=== PATIENT | male | born 1965 | race Caucasian/White ===

== ENCOUNTER 2023-05-27 07:54 | Emergency (ER) | payer OTHER ==
--- NOTE | 2023-05-27 08:33 | ED ---
General Adult HPI - General Chief complaint: Chest Pain Stated complaint: SOB Time Seen by Provider: 05/27/23 08:00 Source: patient, EMS, RN notes reviewed, old records reviewed Mode of arrival: EMS Limitations: no limitations - History of Present Illness Initial comments: This is a 58-year-old male who presents to the emergency department from [facility]. Patient was there for alcohol but has been there for quite a while he has not had any alcohol or cigarettes. Patient comes in today because has been coughing for the last 3 days and has a sore throat a lot of congestion and he states he also has a bit of wheeze. Patient patient states he does have chest pain but he thinks it is his lungs because it only hurts when he takes deep breath or coughs. Patient [place] any palpitation. Patient states he does feel warm and has had the chills. Patient denies abdominal pain patient is nausea vomiting diarrhea - Related Data Home Medications Medication Instructions Recorded Confirmed Acetaminophen Tab [Tylenol] 650 mg PO Q4H PRN 05/27/23 05/27/23 Albuterol Nebulized [Ventolin 2.5 mg INHALATION RT-Q4H PRN 05/27/23 05/27/23 Nebulized] Azithromycin [Zithromax Z Pack] See Taper PO DIRECTED 05/27/23 05/27/23 Brinzolamide/Brimonidine Tart 1 drop BOTH EYES BID 05/27/23 05/27/23 [Simbrinza 1%-0.2% Eye Drop] Calcium/Magnesium/Zinc/Vitamin D 1 tab PO DAILY PRN 05/27/23 05/27/23 Chlorpheniramine Maleate 4 mg PO Q4H PRN 05/27/23 05/27/23 [Chlor-Trimeton] Hyoscyamine Sulfate [Levsin] 0.125 mg PO QID PRN 05/27/23 05/27/23 Ibuprofen [Motrin Ib] 600 mg PO Q6H PRN 05/27/23 05/27/23 Latanoprost [Latanoprost 0.005%] 1 drop BOTH EYES HS 05/27/23 05/27/23 Loperamide HCl [Imodium A-D] 4 mg PO BID PRN 05/27/23 05/27/23 Mag Hydrox/Aluminum Hyd/Simeth 30 ml PO Q4H PRN 05/27/23 05/27/23 [Mylanta Maximum Strength Liq] Melatonin 5 mg PO HS 05/27/23 05/27/23 Metoprolol Tartrate [Lopressor] 25 mg PO BID 05/27/23 05/27/23 Mirtazapine [Remeron] 15 mg PO HS 05/27/23 05/27/23 Multivitamins, Thera [Multivitamin 1 tab PO DAILY 05/27/23 05/27/23 (formulary)] Thiamine [Vitamin B-1] 100 mg PO DAILY 05/27/23 05/27/23 cloNIDine HCL [Catapres] 0.1 - 0.3 mg PO Q4H PRN 05/27/23 05/27/23 ondansetron HCL [Ondansetron HCl] 8 mg PO Q6H PRN 05/27/23 05/27/23 Previous Rx's Medication Instructions Recorded Albuterol Inhaler [Ventolin Hfa 1 - 2 puff INHALATION Q6HR PRN #2 05/27/23 Inhaler] each Allergies Allergy/AdvReac Type Severity Reaction Status Date / Time No Known Allergies Allergy Verified 05/27/23 08:07 Review of Systems ROS Statement: Those systems with pertinent positive or pertinent negative responses have been documented in the HPI. ROS Other: All systems not noted in ROS Statement are negative. Past Medical History Past Medical History: Chest Pain / Angina, Hypertension, Myocardial Infarction ([place]) Additional Past Medical History / Comment(s): PT states he ahs 7 cardiac stents. Pt states he lost his card. Past Surgical History: Heart Catheterization With Stent Smoking Status: Former smoker Past Alcohol Use History: Abuse Past Drug Use History: Marijuana General Exam - General Exam Comments Initial Comments: GENERAL: Patient is well-developed and well-nourished. Patient is nontoxic and well- hydrated and is in mild distress. ENT: Neck is soft and supple. No significant lymphadenopathy is noted. Oropharynx is clear. Moist mucous membranes. Neck has full range of motion without eliciting any pain. EYES: The sclera were anicteric and conjunctiva were pink and moist. Extraocular movements were intact and pupils were equal round and reactive to light. Eyelids were unremarkable. PULMONARY: Patient has diffuse expiratory wheezing CARDIOVASCULAR: There is a regular rate and rhythm without any murmurs gallops or rubs. ABDOMEN: Soft and nontender with normal bowel sounds. SKIN: Skin is clear with no lesions or rashes and otherwise unremarkable. NEUROLOGIC: Patient is alert and oriented x3. Cranial nerves II through XII are grossly intact. Motor and sensory are also intact. Normal speech, volume and content. Symmetrical smile. MUSCULOSKELETAL: Normal extremities with adequate strength and full range of motion. LYMPHATICS: No significant lymphadenopathy is noted PSYCHIATRIC: Normal psychiatric evaluation. Limitations: no limitations Course Vital Signs 05/27/23 05/27/23 05/27/23 07:56 08:09 08:19 Temperature 99.8 F H 100.5 F H Pulse Rate 104 H Respiratory 20 18 Rate Blood Pressure 157/88 O2 Sat by Pulse 93 L Oximetry 05/27/23 05/27/23 09:07 10:04 Temperature 98.8 F 98.7 F Pulse Rate 92 94 Respiratory 18 16 Rate Blood Pressure 112/79 124/71 O2 Sat by Pulse 92 L 93 L Oximetry Medical Decision Making - Medical Decision Making EKG is interpreted by myself EKG shows a sinus rhythm at 90 bpm AL is 134 QRS is 105 QT interval 342 QTc is 390. Patient EKG shows no ST segment ovation or depression Was pt. sent in by a medical professional or institution (, PA, PIE CRUST MIXER, urgent care, hospital, or residential...) When possible be specific @ -[facility] [place] Did you speak to anyone other than the patient for history (EMS, parent, family, police, friend...)? What history was obtained from this source @ -No Did you review nursing and triage notes (agree or disagree)? Why? @ -I reviewed and agree with nursing and triage notes Were old charts reviewed (outside hosp., previous admission, EMS record, old EKG, old radiological studies, urgent care reports/EKG's, residential records)? Report findings @ -No old charts were reviewed Differential Diagnosis (chest pain, altered mental status, abdominal pain women, abdominal pain men, vaginal bleeding, weakness, fever, dyspnea, syncope, headache, dizziness, GI bleed, back pain, seizure, CVA, palpatations, mental health, musculoskeletal)? @ -Differential Fever: Pneumonia, viral URI, endocarditis, myocarditis, pericarditis, otitis, sinusitis, peritonsillar Abscess, retropharyngeal Abscess, epiglottitis, peritonitis, appendicitis, Shelli cystitis, diverticulitis, hepatitis, colitis, UTI, PID, TOA, pyelonephritis, prostatitis, epididymitis, meningitis, encephalitis, pulmonary embolism, CVA, thyroid storm, pancreatitis, adrenal crisis, cavernous sinus thrombosis, this is not meant to be an all-inclusive list. EKG interpreted by me (3pts min.). @ -As above X-rays interpreted by me (1pt min.). @ -Chest x-ray showed no acute abnormality CT interpreted by me (1pt min.). @ -None done U/S interpreted by me (1pt. min.). @ -None done What testing was considered but not performed or refused? (CT, X-rays, U/S, labs)? Why? @ -None What meds were considered but not given or refused? Why? @ -None Did you discuss the management of the patient with other professionals (professionals i.e. , PA, PIE CRUST MIXER, lab, RT, psych nurse, public health social worker, diesel technician mechanic, teacher, security officer, welfare case worker)? Give summary @ -No Was smoking cessation discussed for >3mins.? @ -No Was critical care preformed (if so, how long)? @ -No Were there social determinants of health that impacted care today? How? (Homelessness, low income, unemployed, alcoholism, drug addiction, tr ansportation, low edu. Level, literacy, decrease access to med. care, half-way, rehab)? @ -No Was there de-escalation of care discussed even if they declined (Discuss DNR or withdrawal of care, Hospice)? DNR status @ -No What co-morbidities impacted this encounter? (DM, HTN, Smoking, COPD, CAD, Cancer, CVA, ARF, Chemo, Hep., AIDS, mental health diagnosis, sleep apnea, morbid obesity)? @ -None Was patient admitted / discharged? Hospital course, mention meds given and route, prescriptions, significant lab abnormalities, going to OR and other pertinent info. @ -Patient received Motrin Tylenol for the fever. Patient was influenza A positive. Patient did get a breathing treatment on the way and stated did help him. I will give the patient inhaler. Undiagnosed new problem with uncertain prognosis? @ -No Drug Therapy requiring intensive monitoring for toxicity (Heparin, Nitro, Insulin, Cardizem)? @ -No Were any procedures done? @ -No Diagnosis/symptom? @ -Influenza A Acute, or Chronic, or Acute on Chronic? @ -Acute Uncomplicated (without systemic symptoms) or Complicated (systemic symptoms)? @ -Complicated Side effects of treatment? @ -No Exacerbation, Progression, or Severe Exacerbation? @ -No Poses a threat to life or bodily function? How? (Chest pain, [place], [place], pneumonia, PE, COPD, DKA, ARF, appy, cholecystitis, CVA, Diverticulitis, Homicidal, Suicidal, threat to staff... and all critical care pts) @ -No - Lab Data Result diagrams: 05/27/23 08:21 05/27/23 08:21 Lab Results 05/27/23 05/27/23 05/27/23 Range/Units 08:21 08:21 08:21 WBC 8.8 (3.8-10.6) k/uL RBC 4.31 (4.30-5.90) m/uL Hgb 14.0 (13.0-17.5) gm/dL Hct 40.2 (39.0-53.0) % MCV 93.4 (80.0-100.0) fL MCH 32.4 (25.0-35.0) pg MCHC 34.7 (31.0-37.0) g/dL RDW 13.5 (11.5-15.5) % Plt Count 169 (150-450) k/uL MPV 8.6 Neutrophils % 82 % Lymphocytes % 9 % Monocytes % 6 % Eosinophils % 0 % Basophils % 0 % Neutrophils # 7.2 (1.3-7.7) k/uL Lymphocytes # 0.8 L (1.0-4.8) k/uL Monocytes # 0.5 (0-1.0) k/uL Eosinophils # 0.0 (0-0.7) k/uL Basophils # 0.0 (0-0.2) k/uL PT 10.4 (10.0-12.5) sec INR 0.9 (<1.2) APTT 25.9 (22.0-30.0) sec Sodium 135 L (137-145) mmol/L Potassium 4.2 (3.5-5.1) mmol/L Chloride 104 (98-107) mmol/L Carbon Dioxide 23 (22-30) mmol/L Anion Gap 8 mmol/L BUN 15 (9-20) mg/dL Creatinine 0.54 L (0.66-1.25) mg/dL Est GFR (CKD-EPI)AfAm >90 (>60 ml/min/1.73 sqM) Est GFR (CKD-EPI)NonAf >90 (>60 ml/min/1.73 sqM) Glucose 107 H (74-99) mg/dL Calcium 8.4 (8.4-10.2) mg/dL Magnesium 1.7 (1.6-2.3) mg/dL Total Bilirubin 0.4 (0.2-1.3) mg/dL AST 33 (17-59) U/L ALT 28 (4-49) U/L Alkaline Phosphatase 77 (38-126) U/L Troponin I (0.000-0.034) ng/mL Total Protein 5.9 L (6.3-8.2) g/dL Albumin 3.7 (3.5-5.0) g/dL Influenza Type A (PCR) (Not Detectd) Influenza Type B (PCR) (Not Detectd) RSV (PCR) (Not Detectd) SARS-CoV-2 (PCR) (Not Detectd) 05/27/23 05/27/23 Range/Units 08:21 08:21 WBC (3.8-10.6) k/uL RBC (4.30-5.90) m/uL Hgb (13.0-17.5) gm/dL Hct (39.0-53.0) % MCV (80.0-100.0) fL MCH (25.0-35.0) pg MCHC (31.0-37.0) g/dL RDW (11.5-15.5) % Plt Count (150-450) k/uL MPV Neutrophils % % Lymphocytes % % Monocytes % % Eosinophils % % Basophils % % Neutrophils # (1.3-7.7) k/uL Lymphocytes # (1.0-4.8) k/uL Monocytes # (0-1.0) k/uL Eosinophils # (0-0.7) k/uL Basophils # (0-0.2) k/uL PT (10.0-12.5) sec INR (<1.2) APTT (22.0-30.0) sec Sodium (137-145) mmol/L Potassium (3.5-5.1) mmol/L Chloride (98-107) mmol/L Carbon Dioxide (22-30) mmol/L Anion Gap mmol/L BUN (9-20) mg/dL Creatinine (0.66-1.25) mg/dL Est GFR (CKD-EPI)AfAm (>60 ml/min/1.73 sqM) Est GFR (CKD-EPI)NonAf (>60 ml/min/1.73 sqM) Glucose (74-99) mg/dL Calcium (8.4-10.2) mg/dL Magnesium (1.6-2.3) mg/dL Total Bilirubin (0.2-1.3) mg/dL AST (17-59) U/L ALT (4-49) U/L Alkaline Phosphatase (38-126) U/L Troponin I <0.012 (0.000-0.034) ng/mL Total Protein (6.3-8.2) g/dL Albumin (3.5-5.0) g/dL Influenza Type A (PCR) Detected A (Not Detectd) Influenza Type B (PCR) Not Detected (Not Detectd) RSV (PCR) Not Detected (Not Detectd) SARS-CoV-2 (PCR) Not Detected (Not Detectd) Disposition Clinical Impression: Influenza A Disposition: HOME SELF-CARE Condition: Good Instructions (If sedation given, give patient instructions): Influenza (ED) Prescriptions: Albuterol Inhaler [Ventolin Hfa Inhaler] 1 - 2 puff INHALATION Q6HR PRN #2 each PRN Reason: Difficulty breathing Is patient prescribed a controlled substance at d/c from ED?: No Referrals: [facility] [Primary Care Provider] - 1-2 days Time of Disposition: 10:00
[2023-05-27 08:40] LABS: Basophils % (A) 0 %; Eosinophils % (A) 0 %; HCT 40.2 % (39.0-53.0); Lymphocytes # (A) 0.8 k/uL (1.0-4.8); Lymphocytes % (A) 9 %; MCH 32.4 pg (25.0-35.0); MCHC 34.7 g/dL (31.0-37.0); MCV 93.4 fL (80.0-100.0); Mean Platelet Volume 8.6; Monocytes # (A) 0.5 k/uL (0-1.0); Monocytes % (A) 6 %; Neutrophils # (A) 7.2 k/uL (1.3-7.7); Neutrophils % (A) 82 %; Platelet Count 169 k/uL (150-450); RBC 4.31 m/uL (4.30-5.90); RDW 13.5 % (11.5-15.5); WBC 8.8 k/uL (3.8-10.6)
[2023-05-27] MEDS: ACETAMINOPHEN TAB 500 MG TAB PO STA (08:40)
[2023-05-27] MEDS: IBUPROFEN 600 MG TAB PO STA (08:42)
[2023-05-27] MEDS: SODIUM CHLORIDE 0.9% 500 ML 500 ML IV STA (08:45)
[2023-05-27 08:54] LABS: INR 0.9 (<1.2); Partial Thromboplastin Time 25.9 sec (22.0-30.0); Prothrombin Time 10.4 sec (10.0-12.5)
[2023-05-27 09:04] LABS: ALT 28 U/L (4-49); AST 33 U/L (17-59); African American GFR (CKD) >90 (>60 ml/min/1.73 sqM); Albumin 3.7 g/dL (3.5-5.0); Alkaline Phosphatase 77 U/L (38-126); Anion Gap 8 mmol/L; Blood Urea Nitrogen 15 mg/dL (9-20); Calcium 8.4 mg/dL (8.4-10.2); Carbon Dioxide 23 mmol/L (22-30); Chloride 104 mmol/L (98-107); Glucose 107 mg/dL (74-99); Magnesium 1.7 mg/dL (1.6-2.3); Non-African American GFR(CKD) >90 (>60 ml/min/1.73 sqM); Potassium 4.2 mmol/L (3.5-5.1); Sodium 135 mmol/L (137-145); Total Bilirubin 0.4 mg/dL (0.2-1.3); Total Protein 5.9 g/dL (6.3-8.2)
--- NOTE | 2023-05-27 09:55 | XR ---
EXAMINATION TYPE: XR chest 2V DATE OF EXAM: 05/27/2023 COMPARISON: None INDICATION: Chest pain TECHNIQUE: Frontal and lateral views of the chest are obtained. FINDINGS: The heart size is normal. Cardiac stent is evident. The pulmonary vasculature is normal. The lungs are clear. IMPRESSION: 1. No acute pulmonary process. Follow-up can be performed as clinically indicated
[2023-05-27 10:37] VITALS: BP 124/71; PULSE 94; RESP 16; TEMP 98.7
== END 2023-05-27 10:16 | disposition home or self-care (01) ==
LOC: EC 07:54
DX: J10.1 Influenza due to other identified influenza virus with other respiratory manifestations (principal); I10 Essential (primary) hypertension; I25.2 Old myocardial infarction; Z87.891 Personal history of nicotine dependence; Z20.822 Contact with and (suspected) exposure to COVID-19
CPT/HCPCS: 36415; 71046; 80053; 83735; 84484; 85025; 85610; 85730; 87636; 93005; 96360; 99285

== ENCOUNTER 2023-09-08 18:24 | Inpatient (IN) | payer MEDICARE, OTHER ==
[2023-09-08 19:01] LABS: Basophils # (A) 0.1 k/uL (0-0.2); Basophils % (A) 1 %; Eosinophils # (A) 0.2 k/uL (0-0.7); Eosinophils % (A) 1 %; HCT 47.5 % (39.0-53.0); HGB 16.4 gm/dL (13.0-17.5); Lymphocytes # (A) 1.4 k/uL (1.0-4.8); Lymphocytes % (A) 12 %; MCH 32.3 pg (25.0-35.0); MCHC 34.6 g/dL (31.0-37.0); MCV 93.5 fL (80.0-100.0); Mean Platelet Volume 9.5; Monocytes # (A) 0.6 k/uL (0-1.0); Monocytes % (A) 5 %; Neutrophils # (A) 9.9 k/uL (1.3-7.7); Neutrophils % (A) 80 %; Platelet Count 188 k/uL (150-450); RBC 5.08 m/uL (4.30-5.90); RDW 13.9 % (11.5-15.5); WBC 12.4 k/uL (3.8-10.6)
[2023-09-08 19:06] LABS: Partial Thromboplastin Time 24.2 sec (22.0-30.0); Prothrombin Time 11.2 sec (10.0-12.5)
[2023-09-08] MEDS: MORPHINE SULFATE 4 MG/ML SYRINGE IV STA ×2 (19:06→19:45)
[2023-09-08] MEDS: NITROGLYCERIN OINT 1 INCH/GM PACKET TOPICAL STA (19:06)
[2023-09-08] MEDS: HEPARIN SODIUM 1,000 UN/ML (10ML VL) IV ONE (19:14)
[2023-09-08] MEDS: HEPARIN SOD,PORK IN 0.45% NACL 25,000 UNIT in 0.45% NACL 1 250ML.BAG IV SCH (19:15)
[2023-09-08 20:47] LABS: ALT 16 U/L (4-49); AST 28 U/L (17-59); African American GFR (CKD) >90 (>60 ml/min/1.73 sqM); Albumin 4.2 g/dL (3.5-5.0); Alkaline Phosphatase 100 U/L (38-126); Anion Gap 8 mmol/L; Blood Urea Nitrogen 18 mg/dL (9-20); Calcium 8.9 mg/dL (8.4-10.2); Carbon Dioxide 23 mmol/L (22-30); Chloride 107 mmol/L (98-107); Glucose 89 mg/dL (74-99); Magnesium 1.9 mg/dL (1.6-2.3); Non-African American GFR(CKD) >90 (>60 ml/min/1.73 sqM); Potassium 3.7 mmol/L (3.5-5.1); Sodium 138 mmol/L (137-145); Total Bilirubin 0.5 mg/dL (0.2-1.3); Total Protein 6.3 g/dL (6.3-8.2)
--- NOTE | 2023-09-08 21:06 | ED ---
Chest Pain HPI - General Chief Complaint: Chest Pain Stated Complaint: chest pain Time Seen by Provider: 09/08/23 18:30 Source: patient, EMS Mode of arrival: EMS - History of Present Illness Initial Comments: This patient is a 58-year-old man who complains of having substernal burning chest pains going back a number of days intermittently but that has become constant since this afternoon. The patient states that he had similar pains to this when he had an PR, requiring stent placement. Patient states that he was treated for this at a hospital in [place]. He states that the pain did not seem initially to be exertional. He is not having dyspnea, diaphoresis, palpitations, lightheadedness or syncope. He did has had some associated nausea intermittently. MD Complaint: chest pain -: days(s) Onset: during rest Pain Location: substernal Pain Radiation: none Severity: severe Quality: other (Burning) Consistency: constant Improves With: nothing Worsens With: nothing Anginal Symptoms: nausea Treatments Prior to Arrival: aspirin, oxygen - Related Data Home Medications Medication Instructions Recorded Confirmed Metoprolol Tartrate [Lopressor] 50 mg PO BID 05/27/23 09/09/23 Multivitamins, Thera [Multivitamin 1 tab PO DAILY 05/27/23 09/09/23 (formulary)] Previous Rx's Medication Instructions Recorded Acetaminophen Tab [Tylenol] 1,000 mg PO Q6HR PRN tab 09/26/23 Amiodarone [Cordarone] 400 mg PO DAILY 14 Days tab 09/26/23 Aspirin 325 mg PO DAILY tab 09/26/23 Atorvastatin [Lipitor] 40 mg PO DAILY tab 09/26/23 Benzocaine/Menthol Lozeng [Cepacol 1 each MUCOUS MEM Q2H PRN lozenge 09/26/23 lozenge] Clopidogrel [Plavix] 75 mg PO DAILY tab 09/26/23 HYDROcodone/APAP 10-325MG [[place] 1 each PO Q6HR PRN #28 tab 09/26/23 10-325] Ibuprofen [Motrin] 400 mg PO Q6HR PRN tab 09/26/23 Ipratropium-Albuterol Nebulize 3 ml INHALATION RT-Q2H PRN each 09/26/23 [Duoneb 0.5 mg-3 mg/3 ml Soln] Ipratropium-Albuterol Nebulize 3 ml INHALATION RT-QID each 09/26/23 [Duoneb 0.5 mg-3 mg/3 ml Soln] Losartan [Cozaar] 50 mg PO DAILY@1200 tab 09/26/23 Pantoprazole [Protonix] 40 mg PO AC-BRKFST tab 09/26/23 Sennosides-Docusate Sodium 2 each PO HS PRN tab 09/26/23 [Senokot-S] Allergies Allergy/AdvReac Type Severity Reaction Status Date / Time No Known Allergies Allergy Verified 09/09/23 08:07 Review of Systems ROS Statement: Those systems with pertinent positive or pertinent negative responses have been documented in the HPI. ROS Other: All systems not noted in ROS Statement are negative. Constitutional: Denies: fever, chills, weakness Respiratory: Denies: cough, dyspnea Cardiovascular: Reports: chest pain. Denies: palpitations, orthopnea, edema, syncope Gastrointestinal: Reports: nausea. Denies: abdominal pain, vomiting, diarrhea, melena, hematochezia Genitourinary: Denies: dysuria, hematuria Musculoskeletal: Denies: back pain Skin: Denies: rash Neurological: Denies: headache, weakness, numbness EKG Findings - EKG Results: EKG: interpreted by ERMD, sinus rhythm (Rate 74 bpm), normal axis, normal ST/T - PR, Pacemaker, Normal: Myocardial infarction: inferior PR (old age indeterminate) (There is an inferior leads consistent with previous with PR) Past Medical History Past Medical History: Chest Pain / Angina, Hypertension, Myocardial Infarction ([place]) Additional Past Medical History / Comment(s): PT states he ahs 7 cardiac stents. Pt states he lost his card. History of Any Multi-Drug Resistant Organisms: None Reported Past Surgical History: Heart Catheterization With Stent Past Psychological History: Anxiety, Depression Smoking Status: Former smoker Past Alcohol Use History: Abuse Past Drug Use History: Marijuana - Past Family History Father Family Medical History: Coronary Artery Disease (CAD), Myocardial Infarction ([place]) Additional Family Medical History / Comment(s): from myocardial infarction in his 40s Mother Family Medical History: COPD Additional Family Medical History / Comment(s): from COPD in her 70s Brother(s) Family Medical History: Coronary Artery Disease (CAD) Additional Family Medical History / Comment(s): Had CABG at a young age General Exam Limitations: no limitations General appearance: alert, in no apparent distress Head exam: Present: atraumatic, normocephalic Eye exam: Present: normal appearance. Absent: scleral icterus, conjunctival injection ENT exam: Present: normal oropharynx Neck exam: Present: normal inspection Respiratory exam: Present: normal lung sounds bilaterally. Absent: respiratory distress, wheezes, rales, rhonchi, stridor, accessory muscle use Cardiovascular Exam: Present: regular rate, normal rhythm, normal heart sounds. Absent: systolic murmur, diastolic murmur, rubs, gallop GI/Abdominal exam: Present: soft. Absent: distended, tenderness, guarding, rebound, rigid, mass Extremities exam: Present: normal inspection, normal capillary refill. Absent: pedal edema, calf tenderness Back exam: Present: normal inspection. Absent: CVA tenderness (R), CVA tenderness (L) Neurological exam: Present: alert Skin exam: Present: warm, dry, intact, normal color. Absent: rash Course Vital Signs 09/08/23 09/08/23 09/08/23 18:29 19:44 20:49 Temperature 98.6 F Pulse Rate 80 72 78 Respiratory 18 18 18 Rate Blood Pressure 160/90 154/94 170/89 O2 Sat by Pulse 96 97 97 Oximetry 09/08/23 21:56 Temperature Pulse Rate 80 Respiratory 18 Rate Blood Pressure 164/95 O2 Sat by Pulse 97 Oximetry Chest Pain MDM - MDM The patient had chest x-ray that I interpreted as negative for acute infiltrate, pneumothorax, congestive heart failure. Was pt. sent in by a medical professional or institution (, PA, COMMUNITY SERVICES OFFICER, urgent care, hospital, or custodial...) When possible be specific @ -[No] Did you speak to anyone other than the patient for history (EMS, parent, family, police, friend...)? What history was obtained from this source @ -[No] Did you review nursing and triage notes (agree or disagree)? Why? @ -[I reviewed and agree with nursing and triage notes] Were old charts reviewed (outside hosp., previous admission, EMS record, old EKG, old radiological studies, urgent care reports/EKG's, custodial records)? Report findings @ -[No old charts are available for review Differential Diagnosis (chest pain, altered mental status, abdominal pain women, abdominal pain men, vaginal bleeding, weakness, fever, dyspnea, syncope, headache, dizziness, GI bleed, back pain, seizure, CVA, palpatations, mental health, musculoskeletal)? @ -[Differential Chest Pain: Stable Angina, Unstable Angina, STEMI, NSTEMI Aortic Dissection, Pneumothorax, Musculoskeletal, Esophageal Spasm GERD, Cholecystitis, Pancreatitis, Zoster, this is not meant to be an all-inclusive list. EKG interpreted by me (3pts min.). @ -[I interpreted as above] X-rays interpreted by me (1pt min.). @ -[I interpreted as above CT interpreted by me (1pt min.). @ -[None done] U/S interpreted by me (1pt. min.). @ -[None done] What testing was considered but not performed or refused? (CT, X-rays, U/S, labs)? Why? @ -[None] What meds were considered but not given or refused? Why? @ -[None] Did you discuss the management of the patient with other professionals (professionals i.e. , PA, COMMUNITY SERVICES OFFICER, lab, RT, psych nurse, social insurance specialist, bumper straightener, teacher, operations officer, protective services case worker)? Give summary @ -[Case discussed with admitting physician and treatment recommendations are incorporated Was smoking cessation discussed for >3mins.? @ -[Yes Was critical care preformed (if so, how long)? @ -[Yes, 30 minutes Were there social determinants of health that impacted care today? How? (Homelessness, low income, unemployed, alcoholism, drug addiction, transportation, low edu. Level, literacy, decrease access to med. care, shelter, rehab)? @ -[No] Was there de-escalation of care discussed even if they declined (Discuss DNR or withdrawal of care, Hospice)? DNR status @ -[No] What co-morbidities impacted this encounter? (DM, HTN, Smoking, COPD, CAD, Cancer, CVA, ARF, Chemo, Hep., AIDS, mental health diagnosis, sleep apnea, morbid obesity)? @ -Coronary artery disease. Smoking Was patient admitted / discharged? Hospital course, mention meds given and route, prescriptions, significant lab abnormalities, going to OR and other pertinent info. @ -[Patient is 58-year-old man with history of coronary artery disease presenting with pain he states is identical to previous PR pain. The patient has initial workup that is negative, but given his symptoms he is started on heparin, the patient had aspirin by EMS. The patient did have some relief of symptoms with nitroglycerin and analgesic. Patient is admitted for serial cardiac enzymes, telemetry monitoring, cardiology consultation Undiagnosed new problem with uncertain prognosis? @ -[No] Drug Therapy requiring intensive monitoring for toxicity (Heparin, Nitro, Insulin, Cardizem)? @ -[Heparin Were any procedures done? @ -[No] Diagnosis/symptom? @ -[Acute chest pain Acute, or Chronic, or Acute on Chronic? @ -[Acute Uncomplicated (without systemic symptoms) or Complicated (systemic symptoms)? @ -[Uncomplicated Side effects of treatment? @ -[No] Exacerbation, Progression, or Severe Exacerbation? @ -[No] Poses a threat to life or bodily function? How? (Chest pain, [place], [place], pneumonia, PE, COPD, DKA, ARF, appy, cholecystitis, CVA, Diverticulitis, Homicidal, Suicidal, threat to staff... and all critical care pts) @ -[Yes, requires cardiology evaluation Disposition Clinical Impression: Chest pain Disposition: ADMITTED IP TO THIS HOSP Condition: Stable Is patient prescribed a controlled substance at d/c from ED?: No
[2023-09-08] MEDS ORDERED: NITROGLYCERIN SL TABS 0.4 MG TAB SUBLINGUAL PRN (21:10)
--- NOTE | 2023-09-09 00:25 | XR ---
EXAM: XR chest 1V portable CLINICAL INDICATION:Male, 58 years old with history of chest pain; [facility] COMPARISON: May 27, 2023 TECHNIQUE: Chest single view. FINDINGS: Lines/tubes/devices: EKG leads overlie the chest. No indwelling lines are seen. Cardiomediastinum: Cardiac silhouette appears upper normal in size. Similar mild tortuosity of the aorta with arch calcification. Vasculature: No increased pulmonary vasculature. Lungs/pleura: No consolidation, sizeable effusion, or visible pneumothorax. Similar mild coarsening of interstitial lung markings likely chronic changes. Bones/soft tissues: Bony thorax appears grossly intact as seen. Regional soft tissues appear unremarkable. IMPRESSION: No acute cardiopulmonary findings.
--- NOTE | 2023-09-09 01:42 | P.HPIM ---
History of Present Illness H&P Date: 09/08/23 Chief Complaint: Chest pain 58-year-old male with history of coronary artery disease back in 2017 status post stents hypertension Patient coming in complaining of burning sensation over central chest today he rates the pain as 3 out of 10 in severity it happened while he was trying to be onsite in his yard he was very shortness of breath and winded denies any associated nausea vomiting palpitations. He had no aspirin or nitro at home pain was off and on all day lasting 5 to 15 minutes each time however eventually decided to come into the hospital for evaluation Denies any upper respiratory infection symptoms denies any fevers chills cough hemoptysis denies any runny nose sore throat Patient admits to off-and-on tobacco smoking denies any illicit drugs or heavy alcohol review of systems Pertinent positives as noted in HPI. All other systems were reviewed and are negative on exam Constitutional: No acute distress, conversant, pleasant Eyes: Anicteric sclerae, moist conjunctiva, Pupils equal round reactive to light ENMT: NC/AT Oropharynx clear, no erythema, or exudates Neck: Supple, no masses, or JVD No carotid bruits No thyromegaly Lungs: Clear to auscultation Clear to percussion Normal respiratory effort, no accessory muscle use Cardiovascular: Heart regular in rate and rhythm, No murmurs, gallops, or rubs No peripheral edema Abdominal: Soft Nontender, no guarding, rebound or rigidity Abdomen moving with respiration Normoactive bowel sounds Extremities: No digital cyanosis No clubbing Pedal pulses intact and symmetrical Radial pulses intact and symmetrical No calf tenderness Psychiatric: Alert and oriented to person, place and time Appropriate affect fair judgement Neuro Muscles Strength 5/5 in all 4 extremities Sensation to light touch grossly present throughout Cranial nerves II-XII grossly intact Past Medical History Past Medical History: Chest Pain / Angina, Hypertension, Myocardial Infarction ([place]) Additional Past Medical History / Comment(s): PT states he ahs 7 cardiac stents. Pt states he lost his card. History of Any Multi-Drug Resistant Organisms: None Reported Past Surgical History: Heart Catheterization With Stent Past Psychological History: Anxiety, Depression Smoking Status: Former smoker Past Alcohol Use History: Abuse Past Drug Use History: Marijuana Medications and Allergies Home Medications Medication Instructions Recorded Confirmed Type Acetaminophen Tab [Tylenol] 650 mg PO Q4H PRN 05/27/23 05/27/23 History Albuterol Inhaler [Ventolin Hfa 1 - 2 puff INHALATION Q6HR PRN #2 05/27/23 Rx Inhaler] each Albuterol Nebulized [Ventolin 2.5 mg INHALATION RT-Q4H PRN 05/27/23 05/27/23 History Nebulized] Azithromycin [Zithromax Z Pack] See Taper PO DIRECTED 05/27/23 05/27/23 History Brinzolamide/Brimonidine Tart 1 drop BOTH EYES BID 05/27/23 05/27/23 History [Simbrinza 1%-0.2% Eye Drop] Calcium/Magnesium/Zinc/Vitamin D 1 tab PO DAILY PRN 05/27/23 05/27/23 History Chlorpheniramine Maleate 4 mg PO Q4H PRN 05/27/23 05/27/23 History [Chlor-Trimeton] Hyoscyamine Sulfate [Levsin] 0.125 mg PO QID PRN 05/27/23 05/27/23 History Ibuprofen [Motrin Ib] 600 mg PO Q6H PRN 05/27/23 05/27/23 History Latanoprost [Latanoprost 0.005%] 1 drop BOTH EYES HS 05/27/23 05/27/23 History Loperamide HCl [Imodium A-D] 4 mg PO BID PRN 05/27/23 05/27/23 History Mag Hydrox/Aluminum Hyd/Simeth 30 ml PO Q4H PRN 05/27/23 05/27/23 History [Mylanta Maximum Strength Liq] Melatonin 5 mg PO HS 05/27/23 05/27/23 History Metoprolol Tartrate [Lopressor] 25 mg PO BID 05/27/23 05/27/23 History Mirtazapine [Remeron] 15 mg PO HS 05/27/23 05/27/23 History Multivitamins, Thera [Multivitamin 1 tab PO DAILY 05/27/23 05/27/23 History (formulary)] Thiamine [Vitamin B-1] 100 mg PO DAILY 05/27/23 05/27/23 History cloNIDine HCL [Catapres] 0.1 - 0.3 mg PO Q4H PRN 05/27/23 05/27/23 History ondansetron HCL [Ondansetron HCl] 8 mg PO Q6H PRN 05/27/23 05/27/23 History Allergies Allergy/AdvReac Type Severity Reaction Status Date / Time No Known Allergies Allergy Verified 05/27/23 08:07 Physical Exam Vitals: Vital Signs Temp Pulse Resp BP Pulse Ox 09/08/23 20:49 78 18 170/89 97 09/08/23 19:44 72 18 154/94 97 09/08/23 18:29 98.6 F 80 18 160/90 96 Intake and Output 09/08/23 09/08/23 09/08/23 06:59 14:59 22:59 Other: Weight 58.967 kg Results CBC & Chem 7: 09/08/23 18:50 09/08/23 19:30 Labs: Abnormal Lab Results - Last 24 Hours (Table) 09/08/23 Range/Units 18:50 WBC 12.4 H (3.8-10.6) k/uL Neutrophils # 9.9 H (1.3-7.7) k/uL Assessment and Plan Assessment: 58-year-old male with coronary artery disease coming in for evaluation of chest pain I discussed the case with ED doctor and accepted the admission for atypical chest pain to rule out acute coronary syndrome Atypical chest pain rule out acute coronary syndrome Troponins negative EKG no acute ST changes Cardiology consult Continue with aspirin and statin Continue with nitro as needed for chest pain White count 12.4 hemoglobin 16.4 sodium 138 potassium 3.7 BUN 18 creatinine 0.75 Full code DVT prophylaxis heparin subcu 3 times daily
[2023-09-09] MEDS: HEPARIN SODIUM 1,000 UN/ML (10ML VL) IV PRN (01:56)
[2023-09-09] MEDS ORDERED: AMINOPHYLLINE 500 MG/20 ML VIAL IV PRN (07:56)
[2023-09-09] MEDS ORDERED: CAFFEINE CITRATE 60 MG/3 ML VIAL IV PRN (07:56)
[2023-09-09] MEDS ORDERED: REGADENOSON 0.4 MG/5 ML SYRINGE IV PRN (07:56)
[2023-09-09] MEDS: TICAGRELOR 90 MG TAB PO SCH (08:42)
[2023-09-09] MEDS: METOPROLOL TARTRATE 50 MG TAB PO SCH (08:42)
[2023-09-09] MEDS: ASPIRIN 81 MG PO SCH (08:42)
[2023-09-09] MEDS: BRIMONIDINE TARTRATE 0.2% DROPS 5 ML BTL BOTH EYES SCH (08:43)
[2023-09-09] MEDS: DORZOLAMIDE HCL 2% DROPS 10 ML BTL BOTH EYES SCH (08:43)
[2023-09-09] MEDS: LOSARTAN 50 MG TAB PO SCH (08:46)
[2023-09-09] MEDS ORDERED: METOPROLOL TARTRATE 25 MG TAB PO SCH (09:00)
[2023-09-09] MEDS ORDERED: ASPIRIN 325 MG TAB PO SCH (09:00)
--- NOTE | 2023-09-09 10:20 | P.CRDCN ---
History of Present Illness Consult date: 09/09/23 Consult reason: chest pain History of present illness: This is a 58-year-old male with self-reported past medical history of 6 heart attacks, 7 cardiac stents, 100% left carotid stenosis, PAD, glaucoma. We have been asked to evaluate the patient for chest pain. Patient presented to the hospital due to a burning type chest pain that came and went yesterday lasting about 5 to 10 minutes each time and occurred a couple of times. He states if he had nitroglycerin he would have taken it. Then he got up to go to the bathroom and it hit him hard in the center of his chest and he decided come into the hospital for further evaluation. Patient recently moved here from [place]. He had an appointment scheduled with Dr. Adhikari but failed to present for this appointment. Regarding medications, patient has not been taking his medications as he has run out and [facility] [place] [facility]. Patient has been started on a heparin drip. EKG: Sinus rhythm with no acute ST-T wave changes x 2 Chest x-ray: No acute process Laboratory studies: WBC 12.4, hemoglobin 16.4. Electrolytes renal function liver function test are all within normal limits. Magnesium 1.9. Troponin negative x 3. Home cardiac medications: Metoprolol tartrate 50 mg twice daily. Review Of Systems: At the time of my exam: CONSTITUTIONAL: Denies fever or chills. HEENT: Denies blurred vision, vision changes, or eye pain. Denies hemoptysis CARDIOVASCULAR: Denies chest pain. Denies orthopnea. Denies PND. Denies palpitations RESPIRATORY: Denies shortness of breath. GASTROINTESTINAL: Denies abdominal pain. Denies nausea or vomiting. HEMATOLOGIC: Denies bleeding disorders. GENITOURINARY: Denies any blood in urine. SKIN: Denies puritis. Denies rash. Physical examination: Gen: This is a 58-year-old male in no acute distress VS: reviewed, blood pressure 160/85, heart rate 66, pulse ox 94% on room air. HEENT: Head is atraumatic, normocephalic. Pupils equal, round. Sclerae is anicteric. NECK: Supple. No JVD. LUNGS: Clear to auscultation. No wheezes or rhonchi. No intercostal retractions. HEART: Regular rate and rhythm. No murmur. ABDOMEN: Soft No tenderness. EXTREMITIES: No pedal edema. No calf tenderness. NEUROLOGICAL: Patient is awake, alert and oriented x3. Assessment: Medical noncompliance Atypical chest pain, acute coronary syndrome ruled out History of coronary artery disease History of carotid artery disease PAD in the bilateral lower extremities Hypertension, uncontrolled due to noncompliance Tobacco use and dependence Plan: Resume patient's home cardiac medication Start patient on aspirin 81 mg daily, atorvastatin 40 mg at bedtime, losartan 50 mg daily, Brilinta 90 mg twice daily Discontinue heparin drip Schedule patient for Lexiscan Cardiolite stress test Obtain 2-D echocardiogram and Doppler study to assess cardiac structure and function Further recommendations to follow based upon clinical course Smoking cessation discussed with the patient, patient will be given [employer] quit line information Thank you kindly for this consultation. Nurse practitioner note has been reviewed, I agree with documented findings and plan of care. Patient was seen and examined. Past Medical History Past Medical History: Chest Pain / Angina, Hypertension, Myocardial Infarction ([place]) Additional Past Medical History / Comment(s): PT states he ahs 7 cardiac stents. Pt states he lost his card. Last Myocardial Infarction Date:: 2016 History of Any Multi-Drug Resistant Organisms: None Reported Past Surgical History: Heart Catheterization With Stent Past Anesthesia/Blood Transfusion Reactions: No Reported Reaction Date of Last Stent Placement:: 2016 Past Psychological History: Anxiety, Depression Smoking Status: Former smoker Past Alcohol Use History: Abuse Past Drug Use History: Marijuana Medications and Allergies Home Medications Medication Instructions Recorded Confirmed Type Metoprolol Tartrate [Lopressor] 50 mg PO BID 05/27/23 09/09/23 History Multivitamins, Thera [Multivitamin 1 tab PO DAILY 05/27/23 09/09/23 History (formulary)] Allergies Allergy/AdvReac Type Severity Reaction Status Date / Time No Known Allergies Allergy Verified 09/09/23 08:07 Physical Exam Vitals: Vital Signs Temp Pulse Pulse Pulse Resp BP BP 09/09/23 06:55 98.0 F 66 16 160/85 09/09/23 01:49 97.4 F L 61 18 151/84 09/09/23 01:31 20 09/08/23 22:22 98.2 F 78 20 182/92 09/08/23 21:56 80 18 164/95 09/08/23 20:49 78 18 170/89 09/08/23 19:44 72 18 154/94 09/08/23 18:29 98.6 F 80 18 160/90 Pulse Ox 09/09/23 06:55 94 L 09/09/23 01:49 99 09/09/23 01:31 09/08/23 22:22 99 09/08/23 21:56 97 09/08/23 20:49 97 09/08/23 19:44 97 09/08/23 18:29 96 Intake and Output 09/08/23 09/09/23 09/09/23 22:59 06:59 14:59 Intake Total 45.522 Output Total 300 Balance -254.478 Intake: Intake, IV Titration 45.522 Amount Heparin Sod,Pork in 0.45% 45.522 NaCl 25,000 unit In 0.45 % NaCl 1 250ml.bag @ 12 UNITS/KG/HR 7.076 mls/hr IV .Q24H [facility] Rx#: [id number] Output: Urine 300 Other: Voiding Method Toilet # Voids 1 Weight 58.967 kg Results 09/08/23 18:50 09/08/23 19:30 Cardiac Enzymes 09/08/23 09/08/23 09/08/23 Range/Units 19:30 19:30 21:38 AST 28 (17-59) U/L Troponin I <0.012 <0.012 (0.000-0.034) ng/mL 09/09/23 Range/Units 00:55 AST (17-59) U/L Troponin I <0.012 (0.000-0.034) ng/mL Coagulation 09/08/23 09/09/23 Range/Units 18:50 00:55 PT 11.2 (10.0-12.5) sec APTT 24.2 31.4 H (22.0-30.0) sec CBC 09/08/23 Range/Units 18:50 WBC 12.4 H (3.8-10.6) k/uL RBC 5.08 (4.30-5.90) m/uL Hgb 16.4 (13.0-17.5) gm/dL Hct 47.5 (39.0-53.0) % Plt Count 188 (150-450) k/uL Comprehensive Metabolic Panel 09/08/23 Range/Units 19:30 Sodium 138 (137-145) mmol/L Potassium 3.7 (3.5-5.1) mmol/L Chloride 107 (98-107) mmol/L Carbon Dioxide 23 (22-30) mmol/L BUN 18 (9-20) mg/dL Creatinine 0.75 (0.66-1.25) mg/dL Glucose 89 (74-99) mg/dL Calcium 8.9 (8.4-10.2) mg/dL AST 28 (17-59) U/L ALT 16 (4-49) U/L Alkaline Phosphatase 100 (38-126) U/L Total Protein 6.3 (6.3-8.2) g/dL Albumin 4.2 (3.5-5.0) g/dL Current Medications Generic Name Dose Route Start Last Admin Trade Name Freq PRN Reason Stop Dose Admin Albuterol Sulfate 2.5 mg 09/09/23 01:44 Albuterol Nebulized 2.5 Mg/3 Ml INHALATION RT-Q4H PRN Shortness Of Breath Albuterol/Ipratropium 3 ml 09/09/23 01:40 Ipratropium-Albuterol 3 Ml Neb INHALATION RT-QID PRN Shortness Of Breath Or Wheezing Aminophylline 100 mg 09/09/23 07:56 Aminophylline 500 Mg/20 Ml Vial IV 09/09/23 11:57 ONCE PRN Patient Response Aspirin 81 mg 09/09/23 09:00 Aspirin 81 Mg PO DAILY [facility] Atorvastatin Calcium 40 mg 09/09/23 21:00 Atorvastatin 40 Mg Tab PO HS [facility] Brimonidine Tartrate 1 drops 09/09/23 09:00 Brimonidine Tartrate 0.2% Drops 5 Ml Btl BOTH EYES BID [facility] Caffeine Citrate 60 mg 09/09/23 07:56 Caffeine Citrate 60 Mg/3 Ml Vial IV 09/09/23 11:57 ONCE PRN Patient Response Dorzolamide HCl 1 drops 09/09/23 09:00 Dorzolamide Hcl 2% Drops 10 Ml Btl BOTH EYES BID [facility] Losartan Potassium 50 mg 09/09/23 09:00 Losartan 50 Mg Tab PO DAILY [facility] Metoprolol Tartrate 25 mg 09/09/23 09:00 Metoprolol Tartrate 25 Mg Tab PO BID [facility] Nitroglycerin 0.4 mg 09/08/23 21:10 Nitroglycerin Sl Tabs 0.4 Mg Tab SUBLINGUAL Q5M PRN Chest Pain Regadenoson 0.4 mg 09/09/23 07:56 Regadenoson 0.4 Mg/5 Ml Syringe IV 09/09/23 11:57 ONCE PRN Per Protocol Ticagrelor 90 mg 09/09/23 09:00 Ticagrelor 90 Mg Tab PO BID [facility] Intake and Output 09/08/23 09/09/23 09/09/23 22:59 06:59 14:59 Intake Total 45.522 Output Total 300 Balance -254.478 Intake: Intake, IV Titration 45.522 Amount Heparin Sod,Pork in 0.45% 45.522 NaCl 25,000 unit In 0.45 % NaCl 1 250ml.bag @ 12 UNITS/KG/HR 7.076 mls/hr IV .Q24H [facility] Rx#: [id number] Output: Urine 300 Other: Voiding Method Toilet # Voids 1 Weight 58.967 kg 09/08/23 18:50 09/08/23 19:30
--- NOTE | 2023-09-09 12:09 | NM ---
EXAMINATION TYPE: NM stress lexiscan cardiolite DATE OF EXAM: 09/09/2023 COMPARISON: NONE CLINICAL INDICATION: Male, 58 years old with history of chest pain; TECHNIQUE: After the intravenous administration of 8.9 mCi Tc 99m Sestamibi - Cardiolite resting SPE CT images acquired 45 minutes post injection. The patient received 0.4mg Lexiscan, 25.4 mCi Tc 99m Sestamibi - Stress images obtained [address] injection FINDINGS: Review of stress and rest SPECT images demonstrates large area of fixed decreased perfusion involving the inferior wall and inferoseptal wall. There is an area of reversibility involving the cardiac ape x as well as the apical anterior and apical lateral wall. Gated analysis shows occlusion hypokinesia with an estimated left ventricular ejection fraction of 46 %. IMPRESSION: Reversible ischemia as noted above.
[2023-09-09] MEDS: IPRATROPIUM-ALBUTEROL 3 ML NEB INHALATION PRN (12:11)
--- NOTE | 2023-09-09 14:47 | P.PN ---
Subjective Progress Note Date: 09/09/23 Hospital Course: 58-year-old male with history of CAD status post multiple stents, hypertension presenting with chest pain. On arrival patient was slightly hypertensive, WBC 12.4, troponin negative x 3, creatinine 0.75. EKG showed sinus rhythm. Chest x-ray showed no acute process. Cardiology consulted. Patient being evaluated further for chest pain. Subjective: Patient seen and examined at bedside. Still complaining of minor chest pain. Denies any nausea, vomiting, urinary or bowel complaints. Pertinent positives and negatives as discussed above, a complete review of systems was performed and all other systems are negative. Vitals Signs Reviewed. General: Nontoxic, no distress, appears at stated age Derm: Warm, dry Head: Atraumatic, normocephalic, symmetric Eyes: EOMI, no lid lag, anicteric sclera Mouth: No lip lesion, mucus membranes moist Cardiovascular: S1S2 reg, no murmur Lungs: CTA bilateral, no rhonchi, no rales, no accessory muscle use Abdominal: Soft, nontender to palpation, no guarding, no appreciable organomegaly Ext: No gross muscle atrophy, no edema, no contractures Neuro: CN II-XI grossly intact, no focal neuro deficits Psych: Alert, oriented, appropriate affect Data Reviewed Today: Pertinent Labs: APTT 31.4, troponin negative x 3. Imaging: Repeat EKG independently interpreted from this morning, shows sinus rhythm. And inferior Q waves. Assessment and Plan: Chest pain, ACS ruled out History of coronary artery disease History of carotid artery disease PAD, bilateral lower extremities Hypertension Medication noncompliance Nicotine dependence -Cardiology note reviewed, restarted on home aspirin 81 mg, atorvastatin 40 mg, losartan 50 mg, Brilinta 90 mg twice a day -Lexiscan stress test showed reversible ischemia, EF 46% -Patient will likely need further interventions, pending recommendations from cardiology -Also restarted on home metoprolol 50 twice daily DVT ppx: Subcu heparin Code status: Full code Anticipated discharge place: Pending clinical course Anticipated discharge time: Pending clinical course Objective - Vital Signs Vital signs: Vital Signs Temp 98.0 F 09/09/23 06:55 Pulse 80 09/09/23 12:23 Resp 16 09/09/23 06:55 BP 160/85 09/09/23 06:55 Pulse Ox 98 09/09/23 12:12 FiO2 Intake & Output 09/08/23 09/09/23 09/09/23 18:59 06:59 18:59 Intake Total 45.522 Output Total 300 Balance -254.478 Weight 58.967 kg 58.967 kg Intake: Intake, IV Titration 45.522 Amount Heparin Sod,Pork in 0.45% 45.522 NaCl 25,000 unit In 0.45 % NaCl 1 250ml.bag @ 12 UNITS/KG/HR 7.076 mls/hr IV .Q24H [facility] Rx#: [id number] Output: Urine 300 Other: Voiding Method Toilet Toilet # Voids 1 - Labs CBC & Chem 7: 09/08/23 18:50 09/08/23 19:30 Labs: Abnormal Lab Results - Last 24 Hours (Table) 09/08/23 09/09/23 Range/Units 18:50 00:55 WBC 12.4 H (3.8-10.6) k/uL Neutrophils # 9.9 H (1.3-7.7) k/uL APTT 31.4 H (22.0-30.0) sec
[2023-09-09] MEDS ORDERED: NITROGLYCERIN SL TABS 0.4 MG TAB SUBLINGUAL PRN (15:35)
[2023-09-09] MEDS: HEPARIN SODIUM,PORCINE 5,000 UNIT/ML 1 ML VIAL SQ SCH (16:20)
--- NOTE | 2023-09-09 17:21 | CA ---
Lexiscan Nuclear Stress Test Report Name: Jairo Rosen Exam Date: 09/09/2023 10:43 Exam Location: [place] Stress Ht (in): 64 Wt (lb): 130 BSA: 1.63 Ordering Phys: Moon Mendoza Referring Phys: Zunilda Technologist: JR Age: 58 Gender: M : 1965 Procedure CPT: Indications: Reflex order-Stress test ICD-10 Codes: Patient History: Chest pain, short of breath, hypertension, history of ascad Medications: Meds past 24 hrs: Pretest Chest Pain: STRESS TEST Lexiscan Protocol Exercise Duration (min:sec): 02:[address] Depressions (mm): Angina Score: Hatch Score: Resting HR (bpm): 57 Peak HR (bpm): 92 Resting BP (mmHg): 139 / 86 Peak BP (mmHg): 163 / 91 MPHR: 162 Target HR: 138 % MPHR: 57 METS: 1.0 Total Dose: Peak Dose: Atropine: Double Product: 86149 BP Response: Stress Termination: Infusion complete Stress Symptoms: No chest pain or symptoms Stress Summary: ECG ANALYSIS Resting ECG: Stress ECG: CONCLUSIONS Lexiscan stress test Normal heart rate and blood pressure response Twelve-lead EKG showed sinus rhythm with normal ST segments No ECG evidence for ischemia during Lexiscan infusion Dr. Maximiliano Shultz MD (Electronically Signed) Final Date: 09 September 2023 17:20
[2023-09-09] MEDS: ACETAMINOPHEN TAB 325 MG TAB PO PRN (19:00)
[2023-09-09 19:49] LABS: Chol/HDL Ratio 4.33 Ratio; LDL Cholesterol,Calculated 123.3 mg/dL (0.0-131.0)
[2023-09-09] MEDS: ATORVASTATIN 40 MG TAB PO SCH (20:01)
[2023-09-10] MEDS: ATORVASTATIN 80 MG TAB PO ONE (06:12)
[2023-09-10] MEDS: ASPIRIN 325 MG TAB PO ONE (06:12)
[2023-09-10] MEDS ORDERED: HEPARIN SODIUM,PORCINE 10,000 UNIT in SODIUM CHLORIDE 0.9% 1,000 ML IRRIGATION PRN (07:00)
[2023-09-10] MEDS ORDERED: HEPARIN SODIUM,PORCINE (1 ML) 2,500 UNIT in SODIUM CHLORIDE 0.9% 250 ML IRRIGATION PRN (07:00)
[2023-09-10] MEDS: ALPRAZolam 0.25 MG TAB PO PRN (08:37)
[2023-09-10 09:01] LABS: Basophils # (A) 0.08 X 10*3/uL (0.00-0.10); Eosinophils % (A) 3.6 %; HCT 45.9 % (39.6-50.0); HGB 15.2 g/dL (13.0-17.0); Lymphocytes # (A) 1.95 X 10*3/uL (0.90-5.00); Lymphocytes % (A) 23.4 %; MCH 31.3 pg (27.0-32.0); MCHC 33.1 g/dL (32.0-37.0); MCV 94.6 FL (80.0-97.0); Mean Platelet Volume 12.3 FL (9.5-12.2); Monocytes # (A) 0.77 X 10*3/uL (0.20-1.00); Monocytes % (A) 9.2 %; NRBC Per 100 WBC 0 X 10*3/uL (0.00-0.01); Neutrophils # (A) 5.18 X 10*3/uL (1.80-7.70); Platelet Count 177 X 10*3/uL (140-440); RBC 4.85 X 10*6/uL (4.40-5.60); RDW 13.5 % (11.5-14.5); WBC 8.35 X 10*3/uL (4.50-10.00)
--- NOTE | 2023-09-10 11:11 | P.PN ---
Subjective Progress Note Date: 09/10/23 Consult reason: chest pain History of present illness: This is a 58-year-old male with self-reported past medical history of 6 heart attacks, 7 cardiac stents, 100% left carotid stenosis, PAD, glaucoma. We have been asked to evaluate the patient for chest pain. Patient presented to the hospital due to a burning type chest pain that came and went yesterday lasting about 5 to 10 minutes each time and occurred a couple of times. He states if he had nitroglycerin he would have taken it. Then he got up to go to the bathroom and it hit him hard in the center of his chest and he decided come into the hospital for further evaluation. Patient recently moved here from [place]. He had an appointment scheduled with Dr. Adhikari but failed to present for this appointment. Regarding medications, patient has not been taking his medications as he has run out and [facility] [place] [facility]. Patient has been started on a heparin drip. EKG: Sinus rhythm with no acute ST-T wave changes x 2 Chest x-ray: No acute process Laboratory studies: WBC 12.4, hemoglobin 16.4. Electrolytes renal function liver function test are all within normal limits. Magnesium 1.9. Troponin negative x 3. Home cardiac medications: Metoprolol tartrate 50 mg twice daily. 09/09 Patient is seen today in follow-up. He denies having any chest pain. Due to abnormal Lexiscan stress test, patient is scheduled for cardiac catheterization today with Dr. Adhikari. Blood pressure readings are elevated 179/92, heart rate 55, pulse ox 99% on room air. Repeat blood work reveals hemoglobin 15.2. Discussed with patient the need for compliance with appropriate follow-up on appointments in the office. He agrees that he will not miss further a ppointments. Physical examination: Gen: This is a 58-year-old male in no acute distress VS: reviewed HEENT: Head is atraumatic, normocephalic. Pupils equal, round. Sclerae is anicteric. NECK: Supple. No JVD. LUNGS: Clear to auscultation. No wheezes or rhonchi. No intercostal retractions. HEART: Regular rate and rhythm. No murmur. ABDOMEN: Soft No tenderness. EXTREMITIES: No pedal edema. No calf tenderness. NEUROLOGICAL: Patient is awake, alert and oriented x3. Assessment: Medical noncompliance Atypical chest pain, acute coronary syndrome ruled out Abnormal Lexiscan stress test History of coronary artery disease History of carotid artery disease PAD in the bilateral lower extremities Hypertension, uncontrolled due to noncompliance Tobacco use and dependence Plan: Continue current cardiac medications: Aspirin 81 mg daily, atorvastatin 40 mg at bedtime, losartan 50 mg daily, metoprolol tartrate 50 mg twice daily, Nitrostat, Brilinta 90 mg twice daily Patient is scheduled for cardiac catheterization today with Dr. Adhikari Further recommendations to follow based upon clinical course Smoking cessation discussed with the patient, patient will be given [employer] quit line information Nurse practitioner note has been reviewed, I agree with documented findings and plan of care. Patient was seen and examined. Objective - Vital Signs Vital signs: Vital Signs Temp 98.4 F 09/10/23 07:00 Pulse 55 L 09/10/23 07:00 Resp 14 09/10/23 07:00 BP 179/92 09/10/23 07:00 Pulse Ox 99 09/10/23 07:00 FiO2 Intake & Output 09/09/23 09/10/23 09/10/23 18:59 06:59 18:59 Intake Total 236 Balance 236 Intake: Oral 236 Other: Voiding Method Toilet Toilet # Voids 2 2 - Labs CBC & Chem 7: 09/10/23 04:11 09/08/23 19:30 Labs: Abnormal Lab Results - Last 24 Hours (Table) 09/08/23 Range/Units 19:30 Triglycerides 164.00 H (0.00-149.00) mg/dL Cholesterol 203.00 H (0.00-200.00) mg/dL
[2023-09-10] MEDS ORDERED: LIDOCAINE 1% INJ 10MG/ML (20 ML MDV) ONE (13:15)
[2023-09-10] MEDS ORDERED: HEPARIN SODIUM 1,000 UN/ML (10ML VL) ONE (13:15)
[2023-09-10] MEDS ORDERED: fentaNYL (PF) 50 MCG/ML 2 ML AMP ONE (13:15)
[2023-09-10] MEDS ORDERED: VERAPAMIL 2.5 MG/ML 2 ML AMP ONE (13:15)
[2023-09-10] MEDS: SODIUM CHLORIDE 0.9% 900 ML IV ONE (13:15)
[2023-09-10] MEDS: fentaNYL (PF) 50 MCG/1 ML VIAL IVP ONE (13:40)
[2023-09-10] MEDS: LIDOCAINE 1% INJ 10MG/ML (20 ML MDV) SQ ONE (13:40)
[2023-09-10] MEDS: MIDAZOLAM 2 MG/2 ML VIAL IVP ONE (13:40)
[2023-09-10] MEDS: VERAPAMIL SYRINGE (5 MG/10 ML) INTRAARTER ONE (13:41)
[2023-09-10] MEDS: HEPARIN SODIUM 1,000 UN/ML (10ML VL) IVP ONE (13:48)
[2023-09-10] MEDS: IOPAMIDOL-370 100ML BTL INJ ONE (13:57)
--- NOTE | 2023-09-10 14:13 | P.CARDCATH ---
Date of Procedure: 09/10/23 Description of Procedure: DIAGNOSTIC CORONARY ANGIOGRAPHY and LEFT HEART CATH REPORT PROCEDURES PERFORMED: Left heart catheterization Selective coronary angiography Moderate conscious sedation 20 mins Right radial access INDICATION: [Unstable angina] Patient is a 58-year-old male with past medical history of CAD with PCI to RCA in 2012 and reviewed PCI in 2017. As per patient he has had 7 stents in the past. Lately for last few years patient has not been taking any medications and he has not seek any medical care. He presented to the hospital because of substernal chest pressure and shortness of breath. He also smokes 1 pack/day. On admission he did not have any significant resting ST changes and his troponin x 3 were negative but due to ongoing substernal chest pain shortness symptoms and significant coronary artery disease history and noncompliance to medication, he was treated as unstable angina and was scheduled for heart catheterization procedure. CONSENT: I have explained the procedural steps of above-mentioned procedures in layman's terms to the patient. I discussed the risks (including but not limited to stroke, emergent vascular or cardiac surgery or ), benefits and alternative therapies for the above-mentioned procedure. I discussed the risks of sedation/analgesia and blood product administration (if indicated). The patient has indicated understanding and acceptance of these risks. Conscious Sedation: Patient's ECG, heart rate, blood pressure, pulse oximetry were monitored throughout the duration of procedure under my direct supervision. [2] mg Versed and [50] mg Fentanyl were used for induction of moderate conscious sedation. Total duration of moderate concious sedation 20 minutes. PROCEDURE: After explaining the risks, benefits and alternatives of the above mentioned procedures in detail to the patient, informed consent was obtained. Patient was taken to the catheterization lab, prepped and draped in usual sterile fashion using universal precuations. Barbow and karlos test were performed to confirm adequate perfusion to fingers. Ultrasound was used to identify the radial artery. 1% lidocaine was infiltrated over the right radial artery. A 6-Kiswahili sheath was placed and secured in the right radial artery using modified Seldinger technique. The sheath was flushed and 5 mg verapamil was administered intra-arterially. J tipped wire was advanced under fluoroscopic guidance. Once the wire tip reached aortic root 4000 units of IV heparin was given. Over the wire JR4 diagnostic catheter was advanced. The wire in place the catheter was manipulated to cross the aortic valve and entered into LV under fluoroscopy guidance. The wire was removed and the catheter was flushed. LV pressures were obtained and pullback was performed under fluoroscopy. Catheter was manipulated to selectively engage the right coronary ostium. Right coronary angiography was performed in different angiographic projections. The JR4 diagnostic catheter was exchanged for a JL 4 diagnostic catheter over the J-wire. The wire was removed, catheter was flushed and manipulated under fluoroscopy to selectively engaged the left coronary ostium. Left coronary angioplasty was performed in different angiographic projections. Catheter was removed over the wire. Radial sheath was flushed. The right radial sheath was removed and a TR band was placed with excellent patent hemostasis was achieved. The patient tolerated the procedure well. Patient was transported back to the post catheterization holding area in stable condition. Angiographic images were reviewed in detail. HEMODYNAMICS: Aortic Pressure: 140/75 mmHg. LV pressure: 142/4 mmHg. LVEDP 14 mmHg. There was no significant gradient across the aortic valve. SELECTIVE CORONARY ARTERIOGRAPHY: LEFT MAIN: The left main is a large caliber vessel which bifurcates into the LAD and circumflex. Ostial left main has 20% narrowing. LEFT ANTERIOR DESCENDING CORONARY ARTERY: LAD is a large caliber vessel which reaches up to the apex. Proximal LAD appears angiographically normal. Proximal LAD gives rise to a small diagonal 1 branch which has 60%-70% diffuse disease. Mid LAD just after giving diagonal 1 branch has eccentric 80% stenosis. Distal LAD mild luminal irregularities. It gives rise to small diagonal 2 branch. LEFT CIRCUMFLEX CORONARY ARTERY: It is nondominant vessel. Left circumflex is a moderate caliber vessel. Proximal and mid LCx has mild luminal irregularities. Distally it gives off small oblique marginal branch. RIGHT CORONARY ARTERY: RCA appears to be a dominant artery. RCA is 100% occluded at the ostium. Proximal mid and distal RCA appears to have prior stents which are 100% occluded. There is [id number] collaterals filling PDA and PL branches. IMPRESSION: 80% mid LAD stenosis 100% ostial RCA stenosis Prior stenting of RCA with 100% in-stent stenosis Left right collaterals filling. PL branch Normal LVEDP PLAN: Aggressive risk factor modification per most recent ACC/AHA guidelines. Optimize antianginals 125 cc NS fluids for 4 hours Patient is not an appropriate candidate for PCI with stenting. He has shown evidence of in-stent stenosis. Will consult CT surgery for possible LAD and PDA bypass grafting. Performing Physician Alonso Adhikari MD, FACC, RPVI Thank you for allowing [facility] to participate in this patient's care. Feel free to reach out in case of any followup questions.
[2023-09-10] MEDS ORDERED: RX INFO: IV CONTRAST WAS GIVEN 1 EACH MISC MISCELLANE PRN (14:16)
--- NOTE | 2023-09-10 14:16 | P.PN ---
Subjective Progress Note Date: 09/10/23 Hospital Course: 58-year-old male with history of CAD status post multiple stents, hypertension presenting with chest pain. On arrival patient was slightly hypertensive, WBC 12.4, troponin negative x 3, creatinine 0.75. EKG showed sinus rhythm. Chest x-ray showed no acute process. Stress test was positive. Cardiology plans on doing a heart cath Subjective: Patient seen this morning. He is complaining of mild chest pain. Vitals Signs Reviewed. General examination - Alert and Oriented 3 in NAD Heart - + S1S2 no murmurs Lungs - Clear to auscultation Abdomen soft NT ND +ve BS Extremities - No edema ICU NURSE - Moving all 4 extremities spontaneously Psych - Calm and cooperative Assessment and Plan: Chest pain, ACS ruled out History of coronary artery disease History of carotid artery disease PAD, bilateral lower extremities Hypertension Medication noncompliance Nicotine dependence -Cardiology note reviewed, restarted on home aspirin 81 mg, atorvastatin 40 mg, losartan 50 mg, Brilinta 90 mg twice a day -Lexiscan stress test showed reversible ischemia, EF 46% -Also restarted on home metoprolol 50 twice daily -Patient scheduled for left heart cath today DVT ppx: Subcu heparin Code status: Full code Anticipated discharge place: Home Anticipated discharge time: Awaiting for cardiology to clear the patient Objective - Vital Signs Vital signs: Vital Signs Temp 98.4 F 09/10/23 07:00 Pulse 55 L 09/10/23 07:00 Resp 14 09/10/23 07:00 BP 179/92 09/10/23 07:00 Pulse Ox 98 09/10/23 09:26 FiO2 Intake & Output 09/09/23 09/10/23 09/10/23 18:59 06:59 18:59 Intake Total 236 200 Balance 236 200 Intake: IV 200 Oral 236 Other: Voiding Method Toilet Toilet Toilet # Voids 2 2 - Labs CBC & Chem 7: 09/10/23 04:11 09/08/23 19:30 Labs: Abnormal Lab Results - Last 24 Hours (Table) 09/08/23 09/10/23 Range/Units 19:30 04:11 MPV 12.3 H (9.5-12.2) FL Immature Gran # 0.07 H (0.00-0.04) X 10*3/uL Triglycerides 164.00 H (0.00-149.00) mg/dL Cholesterol 203.00 H (0.00-200.00) mg/dL
[2023-09-10] MEDS: ALPRAZolam 0.5 MG TAB PO PRN (14:20)
[2023-09-10] MEDS: SODIUM CHLORIDE 0.9% 1,000 ML IV SCH (15:02)
[2023-09-10] MEDS: ISOSORBIDE MONONITRATE ER 30 MG TAB.ER.24H PO SCH (15:02)
[2023-09-10] MEDS: carvediloL 12.5 MG TAB PO SCH (17:10)
--- NOTE | 2023-09-10 17:21 | US ---
EXAMINATION TYPE: US vein mapping BILAT DATE OF EXAM: 09/10/2023 5:07 PM COMPARISON: NONE CLINICAL INDICATION: Male, 58 years old with history of preop cardiac surgery; open heart SIDE PERFORMED: Bilateral TECHNIQUE: Lower extremity saphenous vein is examined and measured utilizing real time linear array sonography. DUPLEX FINDINGS: Greater Saphenous: Color flow seen Measurements in mm: Right Greater Saphenous: Groin: 6.3 x 4.3 mm High Thigh: 5.1 x 3.9 mm Mid Thigh: 4.2 x 2.7 mm Above Knee: 4.2 x 2.9 mm Knee: 4.4 x 2.4 mm Below Knee: 2.3 x 1.5 mm Mid Calf: 3.6 x 1.2 mm At Ankle: 4.4 x 2.4 mm Left Greater Saphenous: Groin: 5.4 x 5.0 mm High Thigh: 5.8 x 3.7 mm Mid Thigh: 4.8 x 3.8 mm Above Knee: 5.2 x 3.5 mm Knee: 6.0 x 3.8 mm Below Knee: 5.6 x 2.5 mm Mid Calf: 4.1 x 2.1 mm At Ankle: 4.1 x 2.3 mm IMPRESSION: 1. Bilateral GSV measurements listed above. 2. Performing surgeon to determine viability as conduit.
--- NOTE | 2023-09-10 17:22 | US ---
EXAMINATION TYPE: Pre-Operative Non-Invasive Evaluation of the hand for Potential Radial Artery Dave weathers, Measurements only DATE OF EXAM: 09/10/2023 5:07 PM CLINICAL INDICATION: Male, 58 years old with history of measurements only; open heart SIDE PERFORMED: left TECHNIQUE: Radial artery is measured utilizing real time linear array sonography. Dominant hand: Duplex Findings: Radial Artery: Color flow seen Measurements in mm, transverse view: Proximal: 3.5 x 3.2 mm Mid: 2.6 x 1.8 mm Distal: 3.5 x 2.8 mm IMPRESSION: 1. Left radial artery measurements listed above. 2. Performing surgeon to determine viability as conduit.
--- NOTE | 2023-09-10 17:24 | US ---
EXAMINATION TYPE: US carotid duplex BILAT DATE OF EXAM: 09/10/2023 COMPARISON: NONE CLINICAL INDICATION: Male, 58 years old with history of preop cardiac surgery; OPEN HEART TECHNIQUE: Carotid duplex ultrasound examination. Indirect Doppler criteria was utilized. FINDINGS: EXAM MEASUREMENTS: RIGHT: Peak Systolic Velocity (PSV) cm/sec ----- Right CCA: 82.7 ----- Right ICA: 124 ----- Right ECA: 165.3 ICA/CCA ratio: 1.5 RIGHT: End Diastole cm/sec ----- Right CCA: 21.7 ----- Right ICA: 31.3 ----- Right ECA: 0 LEFT: Peak Systolic Velocity (PSV) cm/sec ----- Left CCA: 59.4 ----- Left ICA: O ----- Left ECA: 216..3 ICA/CCA ratio: NA LEFT: End Diastole cm/sec ----- Left CCA: 0 ----- Left ICA: O ----- Left ECA: 15.8 VERTEBRALS (direction of flow): Right Vertebral: Antegrade Left Vertebral: Antegrade Rhythm: OINTMENT MILL TENDER NOTES: No flow seen in Left ICA IMPRESSION: Completely occluded left internal carotid artery at its origin. Criteria for Assigning % of Stenosis / Diameter reduction (Estimation based on the indirect measurements of the internal carotid artery velocities (ICA PSV). 1. Normal (no stenosis)=ICA PSV < 125 cm/s: ratio < 2.0: ICA EDV<40 cm/s. 2. Less than 50% stenosis=ICA PSV < 125 cm/s: ratio < 2.0: ICA EDV<40 cm/s. 3. 50 to 69% stenosis=ICA PSV of 125 to 230 cm/s: ration 2.0 ? 4.0: ICA EDV 40-100 cm/s. 4. Greater than 70% stenosis to near occlusion= ICA PSV > 230 cm/s: ratio > 4.0: ICA EDV > 100 cm/s. 5. Near occlusion= ICA PSV velocities may be low or undetectable: variable ratio and ICA EDV. 6. Total occlusion=unable to detect flow.
--- NOTE | 2023-09-10 20:51 | US ---
EXAMINATION TYPE: US arterial LE single level DATE OF EXAM: 09/10/2023 7:49 PM CLINICAL INDICATION: Male, 58 years old with history of Ankle Brachial Index (TRELL); TRELL wanted. Open heart patient. Right radial approach used. Right brachial pressure deferred, left brachial pressure o btained and used. History of: Smoker: Current Smoker Hypertension: Takes medication Diabetic: No Hyperlipidemia: Yes TIA/CVA: Yes Previous Vascular Surgery: Patient states he has 7 heart stents CAD: Yes HI: Yes Vascular Ulcers: No Claudication: No Gangrene: No Doppler Waveforms: Right: Monophasic Left: Monophasic Right Brachial Pressure: Deferred due to right radial approach, left brachial pressure used (113) Left Brachial Pressure: 113 Ankle-Brachial Indices: Right: 0.71 Left: 0.64 (Vessel hardening > 1.4; Normal 0.9 - 1.4, Moderate 0.7 - 0.9, Severe 0.5-0.7) Toe Brachial Indices: Right: Right toe cuff not inflating? Left: 0.4 IMPRESSION: Moderate scattered bilateral peripheral vascular disease.
[2023-09-11 03:31] LABS: Hepatitis A Antibody IgM Nonreactive (Nonreactive); Hepatitis B Core IgM Nonreactive (Nonreactive); Hepatitis B Surface Antigen Nonreactive (Nonreactive); Hepatitis C IgG Antibody Nonreactive (Nonreactive)
[2023-09-11] MEDS: LOSARTAN 25 MG TAB PO SCH (08:29)
[2023-09-11 09:12] LABS: ALT 13 U/L (10-49); AST 16 U/L (14-35); Albumin 4.1 g/dL (3.8-4.9); Albumin/Globulin Ratio 2.28 Ratio (1.60-3.17); Alkaline Phosphatase 74 U/L (41-126); Blood Urea Nitrogen 19.6 mg/dL (9.0-27.0); Chloride 107 mmol/L (96-109); Globulin 1.8 g/dL (1.6-3.3); Glucose 98 mg/dL (70-110); Potassium 4.4 mmol/L (3.5-5.5); Sodium 139 mmol/L (135-145); Total Bilirubin 0.5 mg/dL (0.3-1.2); Total Protein 5.9 g/dL (6.2-8.2)
--- NOTE | 2023-09-11 10:28 | P.GSCN ---
History of Present Illness Consult date: 09/11/23 Reason for Consult: Coronary artery disease Requesting physician: Alonso Adhikari History of present illness: This is a 58-year-old gentleman who does not follow outpatient with a primary care or event security officer, however he states he has been trying to establish primary care services with the [facility]. Cardiology consultation notes that he was supposed to see Dr. Adhikari in the office but did not show for his appointment. He has a previous medical history of multiple myocardial infarctions with multiple stents, hypertension, hyperlipidemia, current tobacco dependence with cessation upon admission to the hospital, nightly marijuana use for anxiety, previous heavy EtOH use with admission earlier this year to [facility], does admit to still drinking about 2 beers a month, peripheral arterial disease with claudication, left internal carotid stenosis with possible TIA in the past, medical noncompliance, and family history of premature coronary artery disease with brother having open heart surgery at a very young age and father from myocardial infarction in his 40s. The patient presented to [facility] emergency room with complaints of chest pain similar to previous heart attacks, the pain happened with activity not at rest, his only other symptom was mild nausea. Troponins were negative, EKG demonstrated sinus rhythm. Due to the patient's history he was recommended to undergo heart catheterization which was completed yesterday by Dr. Adhikari which demonstrated 80% mid LAD stenosis, 100% ostial RCA stenosis, 100% in-stent restenosis of prior RCA stents, and left to right collaterals filling the PDA and PL branches. Due to this finding consultation was placed to Dr. Dee from cardiothoracic surgery for surgical revascularization recommendations. Review of Systems Review of systems was completed and was negative except as noted - Cardiovascular Reports as per HPI, Reports chest pain Past Medical History Past Medical History: Coronary Artery Disease (CAD), Chest Pain / Angina, Hyperlipidemia, Hypertension, Myocardial Infarction ([place]) Additional Past Medical History / Comment(s): PT states he ahs 7 cardiac stents. Pt states he lost his card. Questionable TIA in the distant past, not diagnosed officially but patient did have brief episode of slurred speech noticed by a friend which resolved quickly Last Myocardial Infarction Date:: 2016 History of Any Multi-Drug Resistant Organisms: None Reported Past Surgical History: Heart Catheterization With Stent Past Anesthesia/Blood Transfusion Reactions: No Reported Reaction Date of Last Stent Placement:: 2017 Past Psychological History: Anxiety, Depression Smoking Status: Current every day smoker Past Alcohol Use History: Abuse Past Drug Use History: Marijuana Additional History: States he was smoking a pack a day for the last year, quit upon admission to the hospital - Past Family History Father Family Medical History: Coronary Artery Disease (CAD), Myocardial Infarction ([place]) Additional Family Medical History / Comment(s): from myocardial infarction in his 40s Mother Family Medical History: COPD Additional Family Medical History / Comment(s): from COPD in her 70s Brother(s) Family Medical History: Coronary Artery Disease (CAD) Additional Family Medical History / Comment(s): Had CABG at a young age Medications and Allergies Home Medications Medication Instructions Recorded Confirmed Type Metoprolol Tartrate [Lopressor] 50 mg PO BID 05/27/23 09/09/23 History Multivitamins, Thera [Multivitamin 1 tab PO DAILY 05/27/23 09/09/23 History (formulary)] Allergies Allergy/AdvReac Type Severity Reaction Status Date / Time No Known Allergies Allergy Verified 09/09/23 08:07 Surgical - Exam Vital Signs Temp Pulse Resp BP Pulse Ox 98.6 F 80 18 160/90 96 09/08/23 18:29 09/08/23 18:29 09/08/23 18:29 09/08/23 18:29 09/08/23 18:29 CONSTITUTIONAL: Awake and alert, appears comfortable, cooperative, well- developed, well-nourished, no pain, no acute distress EYES: Pupils equal, round, reactive to light, normal ocular movement ENT: Moist mucous membranes without oral lesions present NECK: No masses, no bruits, trachea midline RESPIRATORY: Lungs sounds clear to auscultation bilaterally. Respirations even, nonlabored. Currently on room air with oxygen saturation 97%. Strong cough. No chest wall deformities. No clubbing or cyanosis present CARDIOVASCULAR: S1, S2 present. Regular rate and rhythm, sinus rhythm on telemetry. Palpable peripheral pulses bilaterally. No edema present. No calf pain or tenderness noted. No significant lower extremity varicosities noted GASTROINTESTINAL: Abdomen soft, nontender, nondistended without masses or organomegaly noted. There is no rebound or guarding present. Active bowel sounds present 4 quadrants. GENITOURINARY: Deferred INTEGUMENTARY: Skin is warm and dry with evidence of good perfusion. NEUROLOGIC: Cranial nerves II through XII intact, normal coordination, no obvious motor or sensory deficits, speech is normal MUSKULOSKELETAL: Able to move all extremities, strength equal bilaterally, normal posture PSYCHIATRIC: Alert and oriented to person place and time, appropriate affect, intact judgment and insight CLINICAL FRAILTY SCORE 3 Results - Labs 09/10/23 04:11 09/11/23 05:41 Abnormal Lab Results - Last 24 Hours (Table) 09/11/23 Range/Units 05:41 BUN/Creatinine Ratio 24.50 H (12.00-20.00) Ratio Total Protein 5.9 L (6.2-8.2) g/dL Diabetes panel 09/11/23 Range/Units 05:41 Sodium 139 (135-145) mmol/L Potassium 4.4 (3.5-5.5) mmol/L Chloride 107 (96-109) mmol/L Carbon Dioxide 22.0 (21.6-31.8) mmol/L BUN 19.6 (9.0-27.0) mg/dL Creatinine 0.8 (0.6-1.5) mg/dL Glucose 98 (70-110) mg/dL Calcium 9.0 (8.7-10.3) mg/dL AST 16 (14-35) U/L ALT 13 (10-49) U/L Alkaline Phosphatase 74 (41-126) U/L Total Protein 5.9 L (6.2-8.2) g/dL Albumin 4.1 (3.8-4.9) g/dL Thyroid panel 09/10/23 Range/Units 04:11 TSH 1.610 (0.465-4.680) mIU/L Calcium panel 09/11/23 Range/Units 05:41 Calcium 9.0 (8.7-10.3) mg/dL Albumin 4.1 (3.8-4.9) g/dL Pituitary panel 09/10/23 09/11/23 Range/Units 04:11 05:41 Sodium 139 (135-145) mmol/L Potassium 4.4 (3.5-5.5) mmol/L Chloride 107 (96-109) mmol/L Carbon Dioxide 22.0 (21.6-31.8) mmol/L BUN 19.6 (9.0-27.0) mg/dL Creatinine 0.8 (0.6-1.5) mg/dL Glucose 98 (70-110) mg/dL Calcium 9.0 (8.7-10.3) mg/dL TSH 1.610 (0.465-4.680) mIU/L Adrenal panel 09/11/23 Range/Units 05:41 Sodium 139 (135-145) mmol/L Potassium 4.4 (3.5-5.5) mmol/L Chloride 107 (96-109) mmol/L Carbon Dioxide 22.0 (21.6-31.8) mmol/L BUN 19.6 (9.0-27.0) mg/dL Creatinine 0.8 (0.6-1.5) mg/dL Glucose 98 (70-110) mg/dL Calcium 9.0 (8.7-10.3) mg/dL Total Bilirubin 0.5 (0.3-1.2) mg/dL AST 16 (14-35) U/L ALT 13 (10-49) U/L Alkaline Phosphatase 74 (41-126) U/L Total Protein 5.9 L (6.2-8.2) g/dL Albumin 4.1 (3.8-4.9) g/dL - Imaging Chest x-ray: report reviewed, image reviewed CT scan - chest: image reviewed EKG: image reviewed Additional studies: Heart catheterization and all preoperative testing reviewed with Dr. Dee Assessment and Plan Assessment: Coronary artery disease Multiple myocardial infarctions with multiple stents Hypertension Hyperlipidemia, cholesterol 203, LDL 123 Current tobacco dependence with cessation upon admission to the hospital, FEV1 91% of predicted Nightly marijuana use for anxiety Previous heavy EtOH use with admission earlier this year to [facility], does admit to still drinking about 2 beers a month Peripheral arterial disease with claudication, right TRELL 0.71, left TRELL 0.64 Left internal carotid stenosis 100% with possible TIA in the past Medical noncompliance Family history of premature coronary artery disease Plan: The patient was seen and examined yesterday on the sixth floor sitting up in bed in no acute distress. Chart/diagnostics reviewed. The case was discussed with Dr. Dee who saw the patient this morning. The usual perioperative course of open-heart surgery was discussed in detail with the patient, risk and benefits reviewed, all questions were answered. Preoperative testing was initiated. Recommend continuing aspirin, statin, beta-ingrid. Awaiting echocardiography results. Dr. Dee was very [place] with the patient and did discuss that we can get him through surgery without any issues, the problem is social. The patient does not have an active appropriate place to live right now, he is currently residing in a hotel. He continues to be noncompliant with medications and and did not show for his appointment with cardiology in the office. We were very honest with the patient that if we are going to go ahead with open heart surgery the patient needs to commit to medication compliance as well as follow-up with physicians. In addition his living situation needs to be improved, the patient cannot go to a hotel after open heart surgery. Will discuss with cardiology. More recommendations to follow. Thank you Dr. Adhikari for this consult. I have personally seen and examined the patient, performed the documentation and the assessment and plan as written. Number of minutes spent on the visit: 30. YAMINI Aviles Attending Addendum: This is a 58 year-old M with a hx of CAD s/p multiple PCI in the past, who is non-complaint, presents with unstable angina. Coronary angiography reveals IN HOME BABY SITTER of the RCA, 80% stenosis of the LAD and diagonal disease. Echo reveals good EF. The patient is certainly a good candidate for CABG, however I am concerned about his social situation especially because he lives in a motel. In the meantime, we will order pre-operative work-up and proceed appropriately. I spent 45 minutes reviewing the data and discussing the plan of care with the team. Time with Patient: Greater than 30
--- NOTE | 2023-09-11 11:28 | P.PN ---
Subjective Progress Note Date: 09/11/23 Hospital Course: 58-year-old male with history of CAD status post multiple stents, hypertension presenting with chest pain. On arrival patient was slightly hypertensive, WBC 12.4, troponin negative x 3, creatinine 0.75. EKG showed sinus rhythm. Chest x-ray showed no acute process. Stress test was positive. Patient then proceeded to a left heart catheterization that showed 100% restenosis of his RCA stent and also 80% stenosis of the LAD. Cardiology then recommended bypass surgery due to the restenosis. Patient seen by CT surgery and have initiated preoperative workup for bypass surgery. CT surgery also told the patient that his living situation needs to improve and he needs to show compliance with follow-ups as well as medication compliance before they can proceed with surgery. Patient currently lives in a hotel. Patient does admit that in the past when he did have a cardiac stent placed he was noncompliant with his dual antiplatelet therapy. Subjective: Patient seen this morning. He is complaining of some chest soreness. He states that he feels anxious because he still has a blockage in his coronary arteries. Vitals Signs Reviewed. General examination - Alert and Oriented 3 in NAD Heart - + S1S2 no murmurs Lungs - Clear to auscultation Abdomen soft NT ND +ve BS Extremities - No edema [employer] - Moving all 4 extremities spontaneously Psych - Calm and cooperative Assessment and Plan: Chest pain, ACS ruled out History of coronary artery disease History of carotid artery disease PAD, bilateral lower extremities Hypertension Medication noncompliance Nicotine dependence -Cardiology note reviewed, restarted on home aspirin 81 mg, atorvastatin 40 mg, losartan 50 mg, Brilinta 90 mg twice a day -Lexiscan stress test showed reversible ischemia, EF 46% -Left heart catheter showed 100% restenosis of RCA stent and 80% stenosis of LAD -Patient has history of medication noncompliance and also lives in a hotel -Cardiology recommending bypass surgery -CT surgery have initiated preoperative workup for bypass surgery. CT surgery also told the patient that his living situation needs to improve and he needs to show compliance with his medications as well as follow-ups -Also restarted on home metoprolol 50 twice daily DVT ppx: Subcu heparin Code status: Full code Anticipated discharge place: Home Anticipated discharge time: Awaiting for cardiology and CT surgery to clear the patient for discharge Objective - Vital Signs Vital signs: Vital Signs Temp 98.1 F 09/11/23 06:43 Pulse 60 09/11/23 06:43 Resp 17 09/11/23 06:43 BP 142/72 09/11/23 06:43 Pulse Ox 97 09/11/23 06:43 FiO2 Intake & Output 09/10/23 09/11/23 09/11/23 18:59 06:59 18:59 Intake Total 200 59 Balance 200 59 Intake: IV 200 Oral 59 Other: Voiding Method Toilet Toilet Toilet # Voids 3 2 - Labs CBC & Chem 7: 09/10/23 04:11 09/11/23 05:41 Labs: Abnormal Lab Results - Last 24 Hours (Table) 09/11/23 Range/Units 05:41 BUN/Creatinine Ratio 24.50 H (12.00-20.00) Ratio Total Protein 5.9 L (6.2-8.2) g/dL
--- NOTE | 2023-09-11 12:49 | P.PN ---
Subjective Progress Note Date: 09/11/23 Consult reason: chest pain History of present illness: This is a 58-year-old male with self-reported past medical history of 6 heart attacks, 7 cardiac stents, 100% left carotid stenosis, PAD, glaucoma. We have been asked to evaluate the patient for chest pain. Patient presented to the hospital due to a burning type chest pain that came and went yesterday lasting about 5 to 10 minutes each time and occurred a couple of times. He states if he had nitroglycerin he would have taken it. Then he got up to go to the bathroom and it hit him hard in the center of his chest and he decided come into the hospital for further evaluation. Patient recently moved here from [place]. He had an appointment scheduled with Dr. Adhikari but failed to present for this appointment. Regarding medications, patient has not been taking his medications as he has run out and [facility] [place] [facility]. Patient has been started on a heparin drip. EKG: Sinus rhythm with no acute ST-T wave changes x 2 Chest x-ray: No acute process Laboratory studies: WBC 12.4, hemoglobin 16.4. Electrolytes renal function liver function test are all within normal limits. Magnesium 1.9. Troponin negative x 3. Home cardiac medications: Metoprolol tartrate 50 mg twice daily. 09/09 Patient is seen today in follow-up. He denies having any chest pain. Due to abnormal Lexiscan stress test, patient is scheduled for cardiac catheterization today with Dr. Adhikari. Blood pressure readings are elevated 179/92, heart rate 55, pulse ox 99% on room air. Repeat blood work reveals hemoglobin 15.2. Discussed with patient the need for compliance with appropriate follow-up on appointments in the office. He agrees that he will not miss further a ppointments. 09/10 Yesterday, patient underwent cardiac catheterization with Dr. Adhikari which found 80% mid LAD stenosis, 100% ostial RCA stenosis, prior stenting of the RCA with 100% in-stent stenosis, left right collaterals filling the PDA and PL branches. Normal LVEDP. Consult was placed with cardiothoracic surgery for CABG. Workup for CABG has been initiated. Patient denies having any chest pain at the time of evaluation. Blood pressure 142/72, heart rate 60, pulse ox 97% on room air. Repeat blood work reveals sodium 139, potassium 4.4, creatinine 0.8. Echocardiogram has been obtained and report is pending. Physical examination: Gen: This is a 58-year-old male in no acute distress VS: reviewed HEENT: Head is atraumatic, normocephalic. Pupils equal, round. Sclerae is anicteric. NECK: Supple. No JVD. LUNGS: Clear to auscultation. No wheezes or rhonchi. No intercostal retractio ns. HEART: Regular rate and rhythm. No murmur. ABDOMEN: Soft No tenderness. EXTREMITIES: No pedal edema. No calf tenderness. NEUROLOGICAL: Patient is awake, alert and oriented x3. Assessment: Medical noncompliance Atypical chest pain, acute coronary syndrome ruled out Abnormal Lexiscan stress test History of coronary artery disease History of carotid artery disease PAD in the bilateral lower extremities Hypertension, uncontrolled due to noncompliance Tobacco use and dependence Plan: Continue current cardiac medications: Aspirin 81 mg daily, atorvastatin 40 mg at bedtime, Coreg 12.5 mg twice daily, Imdur 30 mg daily, losartan 75 mg daily, Nitrostat as needed Consult with cardiothoracic surgery appreciated Further recommendations to follow based upon clinical course Smoking cessation discussed with the patient, patient will be given theDrop quit line information Nurse practitioner note has been reviewed, I agree with documented findings and plan of care. Patient was seen and examined. Objective - Vital Signs Vital signs: Vital Signs Temp 98.1 F 09/11/23 06:43 Pulse 60 09/11/23 06:43 Resp 17 09/11/23 06:43 BP 142/72 09/11/23 06:43 Pulse Ox 97 09/11/23 06:43 FiO2 Intake & Output 09/10/23 09/11/23 09/11/23 18:59 06:59 18:59 Intake Total 200 Balance 200 Intake: IV 200 Other: Voiding Method Toilet Toilet # Voids 3 2 - Labs CBC & Chem 7: 09/10/23 04:11 09/11/23 05:41 Labs: Abnormal Lab Results - Last 24 Hours (Table) 09/10/23 Range/Units 04:11 MPV 12.3 H (9.5-12.2) FL Immature Gran # 0.07 H (0.00-0.04) X 10*3/uL
--- NOTE | 2023-09-11 13:05 | CA ---
Transthoracic Echo Report Name: Jairo Rosen Age: 58 Gender: M : 1965 Exam Date: 09/11/2023 10:43 Exam Location: [facility] Ht (in): 64 Wt (lb): 130 Ordering Physician: Moon Mendoza Attending/Referring Phys: [id number], [employer] Coordinator Bozena Palomino, DIEGO Procedure CPT: Indications: LVF Cardiac Hx: Technical Quality: Fair Contrast 1: Total Dose (mL): Contrast 2: Total Dose (mL): MEASUREMENTS (Male / Female) Normal Values 2D ECHO LV Diastolic Diameter PLAX 3.8 cm 4.2 - 5.9 / 3.9 - 5.3 cm LV Systolic Diameter PLAX 2.3 cm IVS Diastolic Thickness 1.1 cm 0.6 - 1.0 / 0.6 - 0.9 cm LVPW Diastolic Thickness 1.3 cm 0.6 - 1.0 / 0.6 - 0.9 cm LV Relative Wall Thickness 0.6 LVOT Diameter 2.2 cm M-MODE Aortic Root Diameter MM 3.3 cm LA Systolic Diameter MM 3.3 cm LA Ao Ratio MM 1.0 DOPPLER AV Peak Velocity 140.2 cm/s AV Peak Gradient 7.9 mmHg AV Mean Gradient 4.2 mmHg AV Velocity Time Integral 28.6 cm LVOT Peak Velocity 118.5 cm/s LVOT Peak Gradient 5.6 mmHg LVOT Velocity Time Integral 21.9 cm LVOT Stroke Volume 82.2 cm??? LVOT Stroke Volume Index 50.5 ml/m??? LVOT Cardiac Index 3016.0 cm???/min???m??? AV Area Cont Eq vti 2.9 cm??? AV Area Cont Eq pk 3.2 cm??? Mitral E Point Velocity 63.0 cm/s Mitral A Point Velocity 67.0 cm/s Mitral E to A Ratio 0.9 MV Deceleration Time 324.5 ms TR Peak Velocity 145.9 cm/s TR Peak Gradient 8.5 mmHg FINDINGS Left Ventricle Mildly increased left ventricular wall thickness. Left ventricular cavity size normal. basal septal and basal inferior bragg are hypokinetik. Preserved sysytolic function, left ventricular ejection fraction is estimated at 50-55 %. Grade 1 diastolic dysfunction. Right Ventricle Normal right ventricular size and function. Right ventricular systolic pressure within normal limits. Right Atrium Normal right atrial size. Left Atrium Normal left atrial size. Mitral Valve Structurally normal mitral valve. Mitral valve thickened. Mild mitral annular calcification. No mitral stenosis, regurgitation or prolapse. Aortic Valve Trileaflet aortic valve. No aortic valve stenosis or regurgitation. Aortic valve sclerosis. Tricuspid Valve Structurally normal tricuspid valve. Mild tricuspid regurgitation. Pulmonic Valve Structurally normal pulmonic valve. Pericardium No pericardial effusion. Aorta Normal size aortic root and proximal ascending aorta. CONCLUSIONS Preserved LV size and function with inferior basal and inferior septal akinesis Thickened aortic valve leaflets without stenosis Previewed by: Dr. Maximiliano Shultz MD (Electronically Signed) Final Date: 11 September 2023 13:04
--- NOTE | 2023-09-11 16:58 | CT ---
EXAMINATION TYPE: CT chest wo con CT DLP: 369 mGycm, Automated exposure control for dose reduction was used. DATE OF EXAM: 09/11/2023 7:48 AM COMPARISON: . Chest radiograph from 09/08/2023 CLINICAL INDICATION:Male, 58 years old with history of eval aorta for calcification; PHH, eval aorta for calcification, chest pain TECHNIQUE: Multiple axial images were obtained through the chest without IV contrast. Lack of IV or o ral contrast limits evaluation of solid and hollow organ viscera. . Coronal and sagittal reformats re viewed. FINDINGS: LUNGS/ PLEURA: No pleural effusion, pneumothorax, focal consolidation. Linear scar or atelectasis wit hin the bilateral lower lobes. Paraseptal emphysematous changes within the lung apices. Right upper l obe 4 mm pulmonary nodule (series 4, image 9). Minimal subpleural reticular and groundglass opacity i dentified within the anterior right upper lobe. AIRWAY: Patent and unremarkable.. HEART: Size within normal limits. No pericardial effusion. MEDIASTINUM: No gross evidence of adenopathy. VASCULATURE: No aortic aneurysm. Moderate to severe three-vessel coronary artery calcifications. Thi s is most prominent along the RCA distribution. Mild aortic valvular calcifications. Mild mitral gary martha calcifications. Mild atherosclerotic calcification of the aorta and its branches. Prominent calci fications at the origins of the bilateral renal arteries. Additional prominent calcifications are not ed along the aortic arch and proximal abdominal aorta. MUSCULOSKELETAL: No acute osseous abnormalities. Sclerotic focus within the inferior aspect of the le ft scapula can representing a benign bone island. Mild multilevel degenerative disease of the visuali zed spine. Few foci of gas identified within the right aspect of the spinal canal at the level of T11 . (series 7, image 60). SOFT TISSUES/LYMPH NODES: Unremarkable. LOWER NECK: No significant findings. UPPER ABDOMEN: No significant findings. IMPRESSION: 1. No acute thoracic process. 2. Right upper lobe 4 mm pulmonary nodule. In a low-risk patient, no follow-up is recommended, in a h igh risk patient consider optional CT chest in 12 months. 3. Moderate to severe three-vessel coronary artery disease. 4. Mild atherosclerotic disease of the aorta and its branches. Moderate atherosclerotic disease invol ving the bilateral renal arteries. 5. Mild COPD changes. 6. Incidental pneumorachis at T11 likely related to disc degeneration.
[2023-09-11] MEDS: MELATONIN 5 MG TABLET PO SCH (20:42)
[2023-09-12] MEDS: ALBUTEROL NEBULIZED 2.5 MG/3 ML INHALATION PRN (08:38)
[2023-09-12] MEDS: LOSARTAN 25 MG TAB PO STA (09:36)
--- NOTE | 2023-09-12 10:58 | P.PN ---
Subjective Progress Note Date: 09/12/23 Principal diagnosis: Coronary artery disease. History of multiple myocardial infarctions with multiple stents, hypertension, hyperlipidemia, current tobacco dependence with cessation upon admission to the hospital, nightly marijuana use for anxiety, previous heavy EtOH use with admission earlier this year to [place], does admit to still drinking about 2 beers a month, peripheral arterial disease with claudication, left internal carotid stenosis 100% with possible TIA in the past, medical noncompliance, family history of premature coronary artery disease The patient was seen and examined with Dr. Dee, sitting up in bed in no acute distress. Denies chest pain, shortness of breath. We discussed open heart with the patient, also discussed discharge planning as patient cannot go to a hotel after surgery. He has contacted family who are willing to help. Remains in sinus rhythm, hemodynamically stable. Anticipate surgery next Saturday by Dr. Dee. Discussed with Dr. Adhikari. No other new concerns. Objective - Vital Signs Vital signs: Vital Signs Temp 97.8 F 09/12/23 07:31 Pulse 62 09/12/23 08:50 Resp 17 09/12/23 06:25 BP 150/75 09/12/23 07:31 Pulse Ox 95 09/12/23 07:31 FiO2 Intake & Output 09/11/23 09/12/23 09/12/23 18:59 06:59 18:59 Intake Total 177 480 Balance 177 480 Intake: Oral 177 480 Other: Voiding Method Toilet Toilet # Voids 1 3 - Exam CONSTITUTIONAL: Appears comfortable, cooperative, no acute distress RESPIRATORY: Lungs sounds diminished bilaterally. Respirations even, nonlabored. Currently on room air with oxygen saturation 95% CARDIOVASCULAR: S1, S2 present. Regular rate and rhythm, sinus rhythm on telemetry. Palpable peripheral pulses bilaterally. No edema present. No calf pain or tenderness noted GASTROINTESTINAL: Abdomen soft, nontender, nondistended. Active bowel sounds present 4 quadrants. Tolerating diet GENITOURINARY: Continues to void INTEGUMENTARY: Skin is warm and dry NEUROLOGIC: Cranial nerves II through XII intact MUSKULOSKELETAL: Able to move all extremities, strength equal bilaterally, gait normal PSYCHIATRIC: Alert and oriented to person place and time, appropriate affect, intact judgment and insight - Allied health notes Allied health notes reviewed: nursing - Labs CBC & Chem 7: 09/10/23 04:11 09/11/23 05:41 Assessment and Plan Assessment: Coronary artery disease Multiple myocardial infarctions with multiple stents Hypertension Hyperlipidemia, cholesterol 203, LDL 123 Current tobacco dependence with cessation upon admission to the hospital, FEV1 91% of predicted Nightly marijuana use for anxiety Previous heavy EtOH use with admission earlier this year to [place], does admit to still drinking about 2 beers a month Peripheral arterial disease with claudication, right TRELL 0.71, left TRELL 0.64 Left internal carotid stenosis 100% with possible TIA in the past Medical noncompliance Family history of premature coronary artery disease Plan: Continue to maximize medical therapy with aspirin, statin, beta-ingrid Increase activity as tolerated Encourage incentive spirometry use STS risk score was calculated and discussed with the patient, he is considered low risk 5 m walk test completed by cardiac rehab Medical management of other comorbidities per internal medicine, cardiology Will consult pulmonology for clearance Tentatively we have scheduled the patient for off-pump coronary artery bypass surgery with left internal mammary artery and endoscopic vein harvest, left atrial appendage ligation by Dr. Dee next , September 17, 2023 More recommendations to follow
--- NOTE | 2023-09-12 14:12 | P.PN ---
Subjective Progress Note Date: 09/12/23 Hospital course: Patient is a 58-year-old male with history of CAD status post stents, hypertension, hyperlipidemia, nicotine dependence, anxiety with depression and nightly cannabis use. He presented to the emergency department on 09/08/2023 secondary to a chief complaint of chest pain. He underwent evaluation in the emergency department. Vital signs upon arrival show blood pressure 160/90, heart rate 80, respiratory rate 18, temp 98.6 F, and SpO2 of 96% on room air. EKG was completed showing normal sinus rhythm at 68 bpm with prominent Q waves in inferior leads. Chest x-ray was negative for acute cardiopulmonary process. Completed and reviewed. CBC revealed leukocytosis with WBC count of 12.4. Coagulation profile normal findings. BMP unremarkable. Magnesium was 1.9. Liver profile unremarkable. Troponin was negative at less than 0.012. Patient was admitted under services with consultation to cardiology. Troponins trended overnight resulting at less than 0.012 x 3 draws. Lipid profile revealed elevated triglycerides of 164 and total cholesterol of 203.00. Hemoglobin A1c 5.5%. Patient went for a cardiac stress test which was positive for reversible ischemia. Cardiology then took patient for cardiac catheterization revealing 80% stenosis of mid LAD and 100% stenosis of RCA. Cardiology stated patient is not an appropriate candidate for PCI with stenting as he has shown evidence of in-stent restenosis and consulted cardiothoracic surgery for evaluation for bypass. Cardiothoracic surgery evaluating and planning to take patient for coronary artery bypass grafting x 2 on 09/17/2023. Echocardiogram completed showing a preserved EF of 50 to 55% with no significant valvular or structural abnormalities reported. Physical exam: Patient seen and fully evaluated at bedside this morning. Patient reports feeling anxious regarding plans for coronary artery bypass but otherwise denies having any complaints at this time. Vital signs reviewed and stable. General: Nontoxic, no distress and appears stated age. Derm: Skin warm and dry, normal coloration for ethnicity. Head: Atraumatic, normocephalic and symmetric. Eyes: EOMs intact, no lid lag, and anicteric sclera Mouth: no lip lesions, mucus membranes moist Cardiovascular: regular rate and rhythm with normal S1S2, no murmur, positive posterior tibial pulses bilaterally, and cap refill < 2 seconds. Lungs: Respirations even, regular, and unlabored on room air. Lungs CTA bilaterally, no rhonchi, no rales, no wheezing, and no accessory muscle usage. Abdominal: soft, nontender to palpation, no guarding, no appreciable o rganomegaly Ext: ROM intact. No gross muscle atrophy, no edema, no contractures Neuro: Speech clear, face symmetrical and CN II-XII grossly intact with no noted focal neuro deficits Psych: Alert and oriented to person, place, time, and situation. Appropriate and pleasant affect. Assessment and Plan of Care: Occlusive coronary artery disease Chest pain, secondary to above CAD with previous stenting x7 Hypertension Hyperlipidemia Nicotine dependence Anxiety -Cardiology following, took patient for cardiac cath revealing 80% stenosis of mid LAD and 100% stenosis of RCA. Cardiology stated patient is not an appropriate candidate for PCI with stenting as he has shown evidence of in-stent restenosis and consulted cardiothoracic surgery for evaluation for bypass. -Cardiothoracic surgery following, discussed plan of care with cardiothoracic surgeon and cardiothoracic surgery RAZOR GRINDER whom stated they are planning to take patient for coronary artery bypass grafting x 2 on 09/17/2023. -Continue telemetry monitoring. -Continue cardiac medication regimen with aspirin 81 mg daily, atorvastatin 80 mg nightly, carvedilol 12.5 mg twice daily, isosorbide mononitrate 30 mg daily, and losartan 100 mg daily. -Echocardiogram completed showing a preserved EF of 50 to 55% with no significant valvular or structural abnormalities reported. -Recommend smoking cessation, patient offered a nicotine patch but declined at this time. Data and imaging reviewed Echocardiogram completed showing a preserved EF of 50 to 55% with no significant valvular or structural abnormalities reported. Vital signs reviewed. Blood pressure 150/75, heart rate 95, respiratory rate 17, temp 97.8 F, and SpO2 of 95% on room air. Discussed thoroughly with cardiothoracic surgeon and cardiothoracic surgery RAZOR GRINDER, patient to be scheduled for coronary artery bypass grafting x 2 vessels on 09/17/2023. CODE STATUS: Full code DVT prophylaxis: Heparin Anticipated discharge date: Pending clinical course Anticipated discharge place: Home Patient was seen independently by Nurse Pracitioner. This document was prepared using [employer] dictation software. Please allow for errors in marble installer supervisor, while rare they do occur. I reviewed the documentation as provided by the JAIMEE above, who is the original author of this note. I agree with the documented assessment and plan, with the following changes: none Objective - Vital Signs Vital signs: Vital Signs Temp 97.8 F 06/13/24 07:31 Pulse 62 09/12/23 08:50 Resp 17 09/12/23 06:25 BP 150/75 09/12/23 07:31 Pulse Ox 95 09/12/23 07:31 FiO2 Intake & Output 09/11/23 09/12/23 09/12/23 18:59 06:59 18:59 Intake Total 177 Balance 177 Intake: Oral 177 Other: Voiding Method Toilet Toilet # Voids 1 3 - Labs CBC & Chem 7: 09/13/23 06:05 09/13/23 06:05
[2023-09-12] MEDS: ATORVASTATIN 80 MG TAB PO SCH (20:10)
[2023-09-12] MEDS: MUPIROCIN 2% OINT 22 GM TUBE NASAL SCH (20:12)
--- NOTE | 2023-09-12 23:59 | P.CNPUL ---
History of Present Illness Consult date: 09/12/23 Chief complaint: Chest pain History of present illness: 58-year-old male patient known history of coronary artery disease with previous coronary stenting along with hypertension hyperlipidemia and previous history of tobacco marijuana smoking and previous history of heavy alcohol drinking along with history of PAD, carotid artery stenosis on the left and a strong family history of coronary disease. The patient presented with complaints of chest pain and the patient underwent a cardiac catheterization the patient was found to have 80% stenosis of the LAD in its mid segment, 100% ostial RCA, 100% in- stent restenosis of the RCA and right to left collaterals and filling of the PDA and PL branches. The patient is currently being worked up for coronary artery bypass surgery. The patient had negative troponins. Renal function is stable with a normal creatinine, normal electrolytes, normal CBC and the viral screen was negative and the chest x-ray showed no acute cardiopulmonary abnormalities and the patient further had a CT scan of the chest on 09/11/2023 that showed no acute thoracic process, 4 mm right upper lobe pulmonary nodule, moderate to severe three-vessel coronary disease along with mild atherosclerotic disease involving the aorta and its branches and moderate atherosclerotic disease involving the bilateral renal arteries and mild background COPD. Echo done on 09/11/2023 showed preserved LV function along with segmental wall motion abnormalities involving the inferior and septal wall and the carotid Dopplers showed completely occluded left internal carotid artery without any flow. The patient is currently on room air oxygen with a pulse ox of 95%. The patient was seen by cardiothoracic surgery. He is not normal sinus rhythm. Plan for bypass surgery on 09/17/2023. Review of Systems CONSTITUTIONAL: Denies fever or chills. HEENT: Denies blurred vision, vision changes, or eye pain. Denies hemoptysis CARDIOVASCULAR: Denies chest pain. Denies orthopnea. Denies PND. Denies palpita tions RESPIRATORY: Denies shortness of breath. GASTROINTESTINAL: Denies abdominal pain. Denies nausea or vomiting. HEMATOLOGIC: Denies bleeding disorders. GENITOURINARY: Denies any blood in urine. SKIN: Denies puritis. Denies rash. Past Medical History Past Medical History: Coronary Artery Disease (CAD), Chest Pain / Angina, Hyperlipidemia, Hypertension, Myocardial Infarction (CO) Additional Past Medical History / Comment(s): PT states he ahs 7 cardiac stents. Pt states he lost his card. Questionable TIA in the distant past, not diagnosed officially but patient did have brief episode of slurred speech noticed by a friend which resolved quickly Last Myocardial Infarction Date:: 2016 History of Any Multi-Drug Resistant Organisms: None Reported Past Surgical History: Heart Catheterization With Stent Past Anesthesia/Blood Transfusion Reactions: No Reported Reaction Date of Last Stent Placement:: 2016 Past Psychological History: Anxiety, Depression Smoking Status: Current every day smoker Past Alcohol Use History: Abuse Past Drug Use History: Marijuana - Past Family History Father Family Medical History: Coronary Artery Disease (CAD), Myocardial Infarction (CO) Additional Family Medical History / Comment(s): from myocardial infarction in his 40s Mother Family Medical History: COPD Additional Family Medical History / Comment(s): from COPD in her 70s Brother(s) Family Medical History: Coronary Artery Disease (CAD) Additional Family Medical History / Comment(s): Had CABG at a young age Medications and Allergies Home Medications Medication Instructions Recorded Confirmed Type Metoprolol Tartrate [Lopressor] 50 mg PO BID 05/27/23 09/09/23 History Multivitamins, Thera [Multivitamin 1 tab PO DAILY 05/27/23 09/09/23 History (formulary)] Allergies Allergy/AdvReac Type Severity Reaction Status Date / Time No Known Allergies Allergy Verified 09/09/23 08:07 Physical Exam Vitals: Vital Signs Temp Pulse Pulse Resp BP Pulse Ox 09/12/23 18:53 98.2 F 66 15 114/67 95 09/12/23 14:56 98 F 66 108/61 93 L 09/12/23 08:50 62 09/12/23 08:39 60 09/12/23 07:31 97.8 F 95 150/75 95 09/12/23 06:25 97.7 F 61 17 145/75 95 09/12/23 02:09 98.1 F 58 L 15 121/68 97 Intake and Output 09/12/23 09/12/23 09/13/23 14:59 22:59 06:59 Intake Total 840 240 Balance 840 240 Intake: Oral 840 240 Other: # Voids 1 CONSTITUTIONAL: Appears comfortable, cooperative, no acute distress head exam was generally normal. There was no scleral icterus or corneal arcus. Mucous membranes were moist. Neck was supple and without jugular venous distension, thyromegaly, or carotid bruits. Carotids were easily palpable bilaterally. There was no adenopathy. RESPIRATORY: Lungs sounds diminished bilaterally. Respirations even, nonlabored. Currently on room air with oxygen saturation 95% CARDIOVASCULAR: S1, S2 present. Regular rate and rhythm, sinus rhythm on telemetry. Palpable peripheral pulses bilaterally. No edema present. No calf pain or tenderness noted GASTROINTESTINAL: Abdomen soft, nontender, nondistended. Active bowel sounds present 4 quadrants. Tolerating diet GENITOURINARY: Continues to void INTEGUMENTARY: Skin is warm and dry NEUROLOGIC: Cranial nerves II through XII intact MUSKULOSKELETAL: Able to move all extremities, strength equal bilaterally, gait normal PSYCHIATRIC: Alert and oriented to person place and time, appropriate affect, intact judgment and insight Results - Laboratory Findings CBC and BMP: 09/10/23 04:11 09/11/23 05:41 PT/INR, D-dimer PT 11.2 sec (10.0-12.5) 09/08/23 18:50 INR 1.0 (<1.2) 09/08/23 18:50 Abnormal lab findings: Abnormal Labs 09/08/23 09/08/23 09/09/23 18:50 19:30 00:55 WBC 12.4 H MPV Immature Gran # Neutrophils # 9.9 H APTT 31.4 H BUN/Creatinine Ratio Total Protein Triglycerides 164.00 H Cholesterol 203.00 H 09/10/23 09/11/23 04:11 05:41 WBC MPV 12.3 H Immature Gran # 0.07 H Neutrophils # APTT BUN/Creatinine Ratio 24.50 H Total Protein 5.9 L Triglycerides Cholesterol Assessment and Plan Plan: Symptomatic multivessel coronary artery disease. The patient is known to have coronary disease and the patient has had previous coronary stents. Currently has extensive disease and the patient is being planned for coronary artery bypass surgery on 09/17/2023. Currently free of any chest pain. Cardiac enzymes are negative. Echocardiogram shows a preserved LV function. Multiple myocardial infarctions with multiple stents Hypertension Hyperlipidemia COPD, mild with an FEV1 of 91% of predicted Chronic smoker Nightly marijuana use for anxiety Previous heavy EtOH use with admission earlier this year to [place], does admit to still drinking about 2 beers a month Peripheral arterial disease with claudication, right TRELL 0.71, left TRELL 0.64 Left internal carotid stenosis 100% with possible TIA in the past Medical noncompliance Family history of premature coronary artery disease Nonspecific right upper lobe pulmonary nodule measuring 4 mm in size Plan: Currently free of any chest pain Pulmonary status is stable Chest x-ray and the CAT scan of the chest and the spirometry was noted Continue to maximize medical therapy with aspirin, statin, beta-ingrid Tentatively we have scheduled the patient for off-pump coronary artery bypass surgery with left internal mammary artery and endoscopic vein harvest, left atrial appendage ligation by Dr. Dee next , September 17, 2023 Will be assisting in the postoperative vent management and respiratory care.
[2023-09-13] MEDS: LOSARTAN 50 MG TAB PO SCH (08:13)
[2023-09-13 08:40] LABS: HCT 44.8 % (39.6-50.0); HGB 15.5 g/dL (13.0-17.0); MCH 31.7 pg (27.0-32.0); MCHC 34.6 g/dL (32.0-37.0); MCV 91.6 FL (80.0-97.0); Mean Platelet Volume 11.7 FL (9.5-12.2); NRBC Per 100 WBC 0 X 10*3/uL (0.00-0.01); Platelet Count 167 X 10*3/uL (140-440); RBC 4.89 X 10*6/uL (4.40-5.60); RDW 13.2 % (11.5-14.5); WBC 8.96 X 10*3/uL (4.50-10.00)
[2023-09-13 08:53] LABS: Magnesium 2.1 mg/dL (1.5-2.4)
[2023-09-13 09:09] LABS: ALT 27 U/L (10-49); AST 23 U/L (14-35); Albumin 4.4 g/dL (3.8-4.9); Albumin/Globulin Ratio 2.32 Ratio (1.60-3.17); Alkaline Phosphatase 91 U/L (41-126); BUN/Creat Ratio 20.75 Ratio (12.00-20.00); Blood Urea Nitrogen 16.6 mg/dL (9.0-27.0); Calcium 9.1 mg/dL (8.7-10.3); Carbon Dioxide 21.7 mmol/L (21.6-31.8); Chloride 104 mmol/L (96-109); Globulin 1.9 g/dL (1.6-3.3); Glucose 97 mg/dL (70-110); Potassium 4.3 mmol/L (3.5-5.5); Sodium 138 mmol/L (135-145); Total Bilirubin 0.3 mg/dL (0.3-1.2); Total Protein 6.3 g/dL (6.2-8.2)
--- NOTE | 2023-09-13 10:40 | P.PN ---
Subjective Patient is stable from a cardiovascular standpoint He is ambulating around his room He has just been seen by pulmonary medicine and CT surgery and surgery is being planned for the of this month He denies any chest discomfort dizziness lightheadedness or palpitations On examination his breath sounds are reduced bilaterally but there are no rhonchi no crackles Heart sounds are normal and regular Blood pressure 119/71 mmHg pulse rate is in the 60s afebrile Impression multivessel coronary artery disease awaiting surgical revascula rization He has had multiple stents placed in the RCA which is completely occluded He has been noncompliant with medications He is a current smoker A history of alcohol use Noncompliance with office visits. He had an office visit scheduled in [facility] but he did not keep He has not been taking any medications for his heart conditions The likelihood of future compliance is low transferred to and coronary stenting to the LAD poses a serious risk of restenosis or thrombosis if he remains noncompliant Objective - Vital Signs Vital signs: Vital Signs Temp 97.9 F 09/13/23 07:00 Pulse 68 09/13/23 07:00 Resp 16 09/13/23 02:03 BP 138/78 09/13/23 07:00 Pulse Ox 97 09/13/23 07:00 FiO2 Intake & Output 09/12/23 09/13/23 09/13/23 18:59 06:59 18:59 Intake Total 1080 Balance 1080 Intake: Oral 1080 Other: # Voids 1 2 - Labs CBC & Chem 7: 09/13/23 06:05 09/13/23 06:05 Labs: Abnormal Lab Results - Last 24 Hours (Table) 09/13/23 Range/Units 06:05 Anion Gap 12.30 H (4.00-12.00) mmol/L BUN/Creatinine Ratio 20.75 H (12.00-20.00) Ratio Microbiology - Last 24 Hours (Table) 09/10/23 18:05 Nasal Screen MRSA/MSSA - Final Nasopharyngeal Swab Staphylococcus aureus,Not MRSA
--- NOTE | 2023-09-13 12:16 | P.PN ---
Subjective Progress Note Date: 09/13/23 Principal diagnosis: Coronary artery disease. History of multiple myocardial infarctions with multiple stents, hypertension, hyperlipidemia, current tobacco dependence with cessation upon admission to the hospital, nightly marijuana use for anxiety, previous heavy EtOH use with admission earlier this year to [place], does admit to still drinking about 2 beers a month, peripheral arterial disease with claudication, left internal carotid stenosis 100% with possible TIA in the past, medical noncompliance, family history of premature coronary artery disease The patient was seen and examined sitting up in bed in no acute distress. Denies chest pain, does feel a little shortness of breath. We discussed open heart with the patient, also discussed discharge planning as patient cannot go to a hotel after surgery. He has contacted family who are willing to help. Esperanza ins in sinus rhythm, hemodynamically stable. Anticipate surgery next Saturday by Dr. Dee. No other new concerns. Objective - Vital Signs Vital signs: Vital Signs Temp 97.9 F 09/13/23 07:00 Pulse 68 09/13/23 07:00 Resp 16 09/13/23 02:03 BP 138/78 09/13/23 07:00 Pulse Ox 97 09/13/23 07:00 FiO2 Intake & Output 09/12/23 09/13/23 09/13/23 18:59 06:59 18:59 Intake Total 1080 Balance 1080 Intake: Oral 1080 Other: Voiding Method Toilet # Voids 1 2 - Exam CONSTITUTIONAL: Appears comfortable, cooperative, no acute distress RESPIRATORY: Lungs sounds diminished bilaterally. Respirations even, nonlabored. Currently on room air with oxygen saturation 95% CARDIOVASCULAR: S1, S2 present. Regular rate and rhythm, sinus rhythm on telemetry. Palpable peripheral pulses bilaterally. No edema present. No calf pain or tenderness noted GASTROINTESTINAL: Abdomen soft, nontender, nondistended. Active bowel sounds present 4 quadrants. Tolerating diet GENITOURINARY: Continues to void INTEGUMENTARY: Skin is warm and dry NEUROLOGIC: Cranial nerves II through XII intact MUSKULOSKELETAL: Able to move all extremities, strength equal bilaterally, gait normal PSYCHIATRIC: Alert and oriented to person place and time, appropriate affect, intact judgment and insight - Labs CBC & Chem 7: 09/13/23 06:05 09/13/23 06:05 Labs: Abnormal Lab Results - Last 24 Hours (Table) 09/13/23 Range/Units 06:05 Anion Gap 12.30 H (4.00-12.00) mmol/L BUN/Creatinine Ratio 20.75 H (12.00-20.00) Ratio Microbiology - Last 24 Hours (Table) 09/10/23 18:05 Nasal Screen MRSA/MSSA - Final Nasopharyngeal Swab Staphylococcus aureus,Not MRSA Assessment and Plan Assessment: Coronary artery disease Multiple myocardial infarctions with multiple stents Hypertension Hyperlipidemia, cholesterol 203, LDL 123 Current tobacco dependence with cessation upon admission to the hospital, FEV1 91% of predicted Nightly marijuana use for anxiety Previous heavy EtOH use with admission earlier this year to [place], does admit to still drinking about 2 beers a month Peripheral arterial disease with claudication, right TRELL 0.71, left TRELL 0.64 Left internal carotid stenosis 100% with possible TIA in the past Medical noncompliance Family history of premature coronary artery disease Plan: Continue to maximize medical therapy with aspirin, statin, beta-ingrid Increase activity as tolerated Encourage incentive spirometry use Medical management of other comorbidities per internal medicine, cardiology Tentatively we have scheduled the patient for off-pump coronary artery bypass surgery with left internal mammary artery and endoscopic vein harvest, left atrial appendage ligation by Dr. Dee next , September 17, 2023 More recommendations to follow
--- NOTE | 2023-09-13 15:10 | P.PN ---
Subjective Progress Note Date: 09/13/23 Hospital course: Patient is a 58-year-old male with history of CAD status post stents, hypertension, hyperlipidemia, nicotine dependence, anxiety with depression and nightly cannabis use. He presented to the emergency department on 09/08/2023 secondary to a chief complaint of chest pain. He underwent evaluation in the emergency department. Vital signs upon arrival show blood pressure 160/90, heart rate 80, respiratory rate 18, temp 98.6 F, and SpO2 of 96% on room air. EKG was completed showing normal sinus rhythm at 68 bpm with prominent Q waves in inferior leads. Chest x-ray was negative for acute cardiopulmonary process. Completed and reviewed. CBC revealed leukocytosis with WBC count of 12.4. Coagulation profile normal findings. BMP unremarkable. Magnesium was 1.9. Liver profile unremarkable. Troponin was negative at less than 0.012. Patient was admitted under services with consultation to cardiology. Troponins trended overnight resulting at less than 0.012 x 3 draws. Lipid profile revealed elevated triglycerides of 164 and total cholesterol of 203.00. Hemoglobin A1c 5.5%. Patient went for a cardiac stress test which was positive for reversible ischemia. Cardiology then took patient for cardiac catheterization revealing 80% stenosis of mid LAD and 100% stenosis of RCA. Cardiology stated patient is not an appropriate candidate for PCI with stenting as he has shown evidence of in-stent restenosis and consulted cardiothoracic surgery for evaluation for bypass. Cardiothoracic surgery evaluating and planning to take patient for coronary artery bypass grafting x 2 on 09/17/2023. Echocardiogram completed showing a preserved EF of 50 to 55% with no significant valvular or structural abnormalities reported. Physical exam: Patient seen and fully evaluated at bedside this morning. Patient reports feeling anxious regarding plans for coronary artery bypass and reports his goal today is to contact his family/friends and notify them of surgery. He reports mild chest soreness but denies having any pain or tightness as he will he was previously experiencing and denies any other complaints, questions, or needs at this time. Vital signs reviewed and stable. General: Nontoxic, no distress and appears stated age. Derm: Skin warm and dry, normal coloration for ethnicity. Head: Atraumatic, normocephalic and symmetric. Eyes: EOMs intact, no lid lag, and anicteric sclera Mouth: no lip lesions, mucus membranes moist Cardiovascular: regular rate and rhythm with normal S1S2, no murmur, positive posterior tibial pulses bilaterally, and cap refill < 2 seconds. Lungs: Respirations even, regular, and unlabored on room air. Lungs CTA bilaterally, no rhonchi, no rales, no wheezing, and no accessory muscle usage. Abdominal: soft, nontender to palpation, no guarding, no appreciable organomegaly Ext: ROM intact. No gross muscle atrophy, no edema, no contractures Neuro: Speech clear, face symmetrical and CN II-XII grossly intact with no noted focal neuro deficits Psych: Alert and oriented to person, place, time, and situation. Appropriate and pleasant affect. Assessment and Plan of Care: Occlusive coronary artery disease Chest pain, secondary to above CAD with previous stenting x7 Hypertension Hyperlipidemia Nicotine dependence Anxiety -Cardiology following, took patient for cardiac cath revealing 80% stenosis of mid LAD and 100% stenosis of RCA. Cardiology stated patient is not an appropriate candidate for PCI with stenting as he has shown evidence of in-stent restenosis and consulted cardiothoracic surgery for evaluation for bypass. -Cardiothoracic surgery following, discussed plan of care with cardiothoracic surgeon and cardiothoracic surgery STRUCTURAL ARCHITECT whom stated they are planning to take patient for coronary artery bypass grafting x 2 on 09/17/2023. -Continue telemetry monitoring. -Continue cardiac medication regimen with aspirin 81 mg daily, atorvastatin 80 mg nightly, carvedilol 12.5 mg twice daily, isosorbide mononitrate 30 mg daily, and losartan 100 mg daily. -Echocardiogram completed showing a preserved EF of 50 to 55% with no significant valvular or structural abnormalities reported. -Recommend smoking cessation, patient offered a nicotine patch but declined at this time. Pulmonary nodule -CT chest was completed and radiology report reviewed showing a right upper lobe 4 mm pulmonary nodule. Patient high risk secondary to smoking history will need repeat CT chest in 12 months. Data and imaging reviewed: Morning labs reviewed. CBC unremarkable with WBC count of 8.896, hemoglobin 15.5, platelet count of 167. BMP showing a slightly elevated anion gap of 12.30 otherwise normal findings. Blood glucose 97. Magnesium 2.1. Liver profile unremarkable. Vital signs reviewed. Blood pressure 138/78, heart rate 68, respiratory rate 16, temp 97.9 F, and SpO2 of 97% on room air. CT chest was completed as ordered by cardiothoracic surgery, reviewing radiology report it is showing a right upper lobe 4 mm pulmonary nodule. Patient high risk secondary to smoking history will need repeat CT chest in 12 months. Discussed thoroughly with cardiothoracic surgeon and cardiothoracic surgery STRUCTURAL ARCHITECT, patient is scheduled for coronary artery bypass grafting x 2 vessels on 09/17/2023. CODE STATUS: Full code DVT prophylaxis: Heparin Anticipated discharge date: Pending clinical course Anticipated discharge place: Home Patient was seen independently by Nurse Pracitioner. This document was prepared using [employer] dictation software. Please allow for errors in driller's offsider, while rare they do occur. I reviewed the documentation as provided by the JAIMEE above, who is the original author of this note. I agree with the documented assessment and plan, with the following changes: none Objective - Vital Signs Vital signs: Vital Signs Temp 97.9 F 09/13/23 07:00 Pulse 68 09/13/23 07:00 Resp 16 09/13/23 02:03 BP 138/78 09/13/23 07:00 Pulse Ox 97 09/13/23 07:00 FiO2 Intake & Output 09/12/23 09/13/23 09/13/23 18:59 06:59 18:59 Intake Total 1080 Balance 1080 Intake: Oral 1080 Other: # Voids 1 2 - Labs CBC & Chem 7: 09/13/23 06:05 09/13/23 06:05 Labs: Microbiology - Last 24 Hours (Table) 09/10/23 18:05 Nasal Screen MRSA/MSSA - Final Nasopharyngeal Swab Staphylococcus aureus,Not MRSA
--- NOTE | 2023-09-14 00:17 | P.PN ---
Subjective Progress Note Date: 09/13/23 58-year-old male patient known history of coronary artery disease with previous coronary stenting along with hypertension hyperlipidemia and previous history of tobacco marijuana smoking and previous history of heavy alcohol drinking along with history of PAD, carotid artery stenosis on the left and a strong family history of coronary disease. The patient presented with complaints of chest pain and the patient underwent a cardiac catheterization the patient was found to have 80% stenosis of the LAD in its mid segment, 100% ostial RCA, 100% in- stent restenosis of the RCA and right to left collaterals and filling of the PDA and PL branches. The patient is currently being worked up for coronary artery bypass surgery. The patient had negative troponins. Renal function is stable with a normal creatinine, normal electrolytes, normal CBC and the viral screen was negative and the chest x-ray showed no acute cardiopulmonary abnormalities and the patient further had a CT scan of the chest on 09/11/2023 that showed no acute thoracic process, 4 mm right upper lobe pulmonary nodule, moderate to sev ere three-vessel coronary disease along with mild atherosclerotic disease involving the aorta and its branches and moderate atherosclerotic disease involving the bilateral renal arteries and mild background COPD. Echo done on 09/11/2023 showed preserved LV function along with segmental wall motion a bnormalities involving the inferior and septal wall and the carotid Dopplers showed completely occluded left internal carotid artery without any flow. The patient is currently on room air oxygen with a pulse ox of 95%. The patient was seen by cardiothoracic surgery. He is not normal sinus rhythm. Plan for bypass surgery on 09/17/2023. 09/13/2023, the patient remains free of any chest pain. No specific complaints. The plan is to undergo coronary bypass surgery next week. The patient denies having any new complaints otherwise. Surgery will be done by Dr. Dee. Hemoglobin is at least 15.5 with a white cell count of 8.9. Electrolytes are within normal limits. Objective - Vital Signs Vital signs: Vital Signs Temp 98.6 F 09/13/23 13:57 Pulse 65 09/13/23 13:57 Resp 18 09/13/23 13:57 BP 103/64 09/13/23 13:57 Pulse Ox 95 09/13/23 13:57 FiO2 Intake & Output 09/12/23 09/13/23 09/13/23 18:59 06:59 18:59 Intake Total 1080 Balance 1080 Intake: Oral 1080 Other: Voiding Method Toilet # Voids 1 2 2 - Labs CBC & Chem 7: 09/13/23 06:05 09/13/23 06:05 Labs: Abnormal Lab Results - Last 24 Hours (Table) 09/13/23 Range/Units 06:05 Anion Gap 12.30 H (4.00-12.00) mmol/L BUN/Creatinine Ratio 20.75 H (12.00-20.00) Ratio Assessment and Plan Plan: Symptomatic multivessel coronary artery disease. The patient is known to have coronary disease and the patient has had previous coronary stents. Currently has extensive disease and the patient is being planned for coronary artery bypass surgery on 09/17/2023. Currently free of any chest pain. Cardiac enzymes are negative. Echocardiogram shows a preserved LV function. Multiple myocardial infarctions with multiple stents Hypertension Hyperlipidemia COPD, mild with an FEV1 of 91% of predicted Chronic smoker Nightly marijuana use for anxiety Previous heavy EtOH use with admission earlier this year to [place], does admit to still drinking about 2 beers a month Peripheral arterial disease with claudication, right TRELL 0.71, left TRELL 0.64 Left internal carotid stenosis 100% with possible TIA in the past Medical noncompliance Family history of premature coronary artery disease Nonspecific right upper lobe pulmonary nodule measuring 4 mm in size Plan: No new complaints and I explained to the patient details of the postop care that we will be needed Currently free of any chest pain Pulmonary status is stable Chest x-ray and the CAT scan of the chest and the spirometry was noted Continue to maximize medical therapy with aspirin, statin, beta-ingrid Tentatively we have scheduled the patient for off-pump coronary artery bypass surgery with left internal mammary artery and endoscopic vein harvest, left atri al appendage ligation by Dr. Dee next August Will be assisting in the postoperative vent management and respiratory care.
--- NOTE | 2023-09-14 12:01 | P.PN ---
Subjective Progress Note Date: 09/14/23 Hospital Course: Patient is a 58-year-old male with history of CAD status post stents, hypertens ion, hyperlipidemia, nicotine dependence, anxiety with depression and nightly cannabis use. He presented to the emergency department on 09/08/2023 secondary to a chief complaint of chest pain. He underwent evaluation in the emergency department. Vital signs upon arrival show blood pressure 160/90, heart rate 80, respiratory rate 18, temp 98.6 F, and SpO2 of 96% on room air. EKG was completed showing normal sinus rhythm at 68 bpm with prominent Q waves in inferior leads. Chest x-ray was negative for acute cardiopulmonary process. Completed and reviewed. CBC revealed leukocytosis with WBC count of 12.4. Coagulation profile normal findings. BMP unremarkable. Magnesium was 1.9. Liver profile unremarkable. Troponin was negative at less than 0.012. Patient was admitted under services with consultation to cardiology. Troponins trended overnight resulting at less than 0.012 x 3 draws. Lipid profile revealed elevated triglycerides of 164 and total cholesterol of 203.00. Hemoglobin A1c 5.5%. Patient went for a cardiac stress test which was positive for reversible ischemia. Cardiology then took patient for cardiac catheterization revealing 80% stenosis of mid LAD and 100% stenosis of RCA. Cardiology stated patient is not an appropriate candidate for PCI with stenting as he has shown evidence of in-stent restenosis and consulted cardiothoracic surgery for evaluation for by pass. Cardiothoracic surgery evaluating and planning to take patient for coronary artery bypass grafting x 2 on 09/17/2023. Echocardiogram completed showing a preserved EF of 50 to 55% with no significant valvular or structural abnormalities reported. Subjective: Patient seen and examined at bedside. No acute events overnight. Occasional chest soreness. Pertinent positives and negatives as discussed above, a complete review of systems was performed and all other systems are negative. Vitals Signs Reviewed. General: Nontoxic, no distress, appears at stated age Derm: Warm, dry Head: Atraumatic, normocephalic, symmetric Eyes: EOMI, no lid lag, anicteric sclera Mouth: No lip lesion, mucus membranes moist Cardiovascular: S1S2 reg, no murmur Lungs: CTA bilateral, no rhonchi, no rales, no accessory muscle use Abdominal: Soft, nontender to palpation, no guarding, no appreciable organ omegaly Ext: No gross muscle atrophy, no edema, no contractures Neuro: CN II-XI grossly intact, no focal neuro deficits Psych: Alert, oriented, appropriate affect Data Reviewed Today: Pertinent Labs: No new labs Imaging: No new imaging Assessment and Plan: Occlusive coronary artery disease Chest pain, secondary to above CAD with previous stenting x7 Hypertension Hyperlipidemia Nicotine dependence Anxiety -Cardiology following, cardiac cath revealing 80% stenosis of mid LAD and 100% stenosis of RCA. Cardiology stated patient is not an appropriate candidate for PCI with stenting as he has shown evidence of in-stent restenosis and consulted cardiothoracic surgery for evaluation for bypass. -Cardiothoracic surgery following, planning for coronary artery bypass grafting x 2 on 09/17/2023. -Continue telemetry monitoring. -Continue cardiac medication regimen with aspirin 81 mg daily, atorvastatin 80 mg nightly, carvedilol 12.5 mg twice daily, isosorbide mononitrate 30 mg daily, and losartan 100 mg daily. -Echocardiogram completed showing a preserved EF of 50 to 55% with no significant valvular or structural abnormalities reported. -Recommend smoking cessation during this admission, patient declined nicotine patch Pulmonary nodule -CT chest was completed and radiology report reviewed showing a right upper lobe 4 mm pulmonary nodule. Patient high risk secondary to smoking history will need repeat CT chest in 12 months. DVT ppx: Subcu heparin Code status: Full code Anticipated discharge place: Pending clinical course Anticipated discharge time: Pending clinical course Objective - Vital Signs Vital signs: Vital Signs Temp 97.6 F 09/14/23 07:20 Pulse 57 L 09/14/23 07:20 Resp 18 09/14/23 08:35 BP 108/69 09/14/23 07:20 Pulse Ox 95 09/14/23 07:20 FiO2 Intake & Output 09/13/23 09/14/23 09/14/23 18:59 06:59 18:59 Intake Total 358 Balance 358 Intake: Oral 358 Other: Voiding Method Toilet Toilet Toilet # Voids 2 2 - Labs CBC & Chem 7: 09/13/23 06:05 09/13/23 06:05
--- NOTE | 2023-09-14 13:36 | P.PN ---
Subjective Progress Note Date: 09/14/23 Principal diagnosis: Coronary artery disease. History of multiple myocardial infarctions with multiple stents, hypertension, hyperlipidemia, current tobacco dependence with cessation upon admission to the hospital, nightly marijuana use for anxiety, previous heavy EtOH use with admission earlier this year to [place], does admit to still drinking about 2 beers a month, peripheral arterial disease with claudication, left internal carotid stenosis 100% with possible TIA in the past, medical noncompliance, family history of premature coronary artery disease The patient was seen and examined in follow-up today September 14, 2023 at his bedside on the 6 floor cardiac unit. He denies any complaints of pain or shortness of breath at this time. He states he has been up ambulating in the hallway independently without complaints. He is currently sitting up on the bedside edge, eating his breakfast, is awake, alert, oriented x 3 and is in no acute apparent distress. Remote telemetry is showing normal sinus rhythm heart rate 61 bpm. He has been afebrile in the last 24 hours. Oxygen saturations are 95% on room air and he is achieving 3500 mL on his incentive spirometry with encouragement. He is currently scheduled for off-pump myocardial revascularization surgery with left internal mammary artery, endoscopic greater saphenous vein harvest, exclusion of left atrial appendage and intraoperative transesophageal echocardiogram to be completed by Dr. Charles Dee from cardiothoracic surgery on Sunday, September 17, 2023. Objective - Vital Signs Vital signs: Vital Signs Temp 97.6 F 09/14/23 07:20 Pulse 57 L 09/14/23 07:20 Resp 18 09/14/23 08:35 BP 108/69 09/14/23 07:20 Pulse Ox 95 09/14/23 07:20 FiO2 Intake & Output 09/13/23 09/14/23 09/14/23 18:59 06:59 18:59 Intake Total 358 Balance 358 Intake: Oral 358 Other: Voiding Method Toilet Toilet Toilet # Voids 2 2 - Exam CONSTITUTIONAL: Appears comfortable, cooperative, no acute distress. RESPIRATORY: Lungs sounds diminished bilaterally. Respirations even, nonlabored. Currently on room air with oxygen saturation 95%, achieving 3500 mL on his incentive spirometry with encouragement. CARDIOVASCULAR: S1, S2 present. Regular rate and rhythm, sinus rhythm on telemetry. Palpable peripheral pulses bilaterally. No edema present. No calf pain or tenderness noted. GASTROINTESTINAL: Abdomen soft, nontender, nondistended. Active bowel sounds present 4 quadrants. Tolerating diet. GENITOURINARY: Continues to void. INTEGUMENTARY: Skin is warm and dry. No clubbing or cyanosis is present. NEUROLOGIC: Cranial nerves II through XII intact. No focal deficits. MUSKULOSKELETAL: Able to move all extremities, strength equal bilaterally, gait normal. PSYCHIATRIC: Alert and oriented to person place and time, appropriate affect, intact judgment and insight. - Allied health notes Allied health notes reviewed: nursing - Labs CBC & Chem 7: 09/13/23 06:05 09/13/23 06:05 Assessment and Plan Assessment: Coronary artery disease Multiple myocardial infarctions with multiple stents Hypertension Hyperlipidemia, cholesterol 203, LDL 123 Current tobacco dependence with cessation upon admission to the hospital, FEV1 91% of predicted Nightly marijuana use for anxiety Previous heavy EtOH use with admission earlier this year to [place], does admit to still drinking about 2 beers a month Peripheral arterial disease with claudication, right TRELL 0.71, left TRELL 0.64 Left internal carotid stenosis 100% with possible TIA in the past Medical noncompliance Family history of premature coronary artery disease Plan: Continue to maximize medical therapy with aspirin, statin, beta-ingrid. Increase activity as tolerated. Encourage incentive spirometry use 10 times every hour while awake. Discussed the importance of smoking cessation with the patient, upon discharge he will be given a number to 1-800quitnow. Medical management of other comorbidities per internal medicine, cardiology. Tentatively we have scheduled the patient for off-pump coronary artery bypass surgery with left internal mammary artery, and endoscopic vein harvest, left atrial appendage ligation by Dr. Dee next Sunday September 17, 2023. More recommendations to follow based on patient's clinical course. Time with Patient: Less than 30
--- NOTE | 2023-09-14 13:45 | P.PN ---
Subjective Progress Note Date: 09/14/23 Patient is stable from a cardiovascular standpoint He is ambulating around his room He has just been seen by pulmonary medicine and CT surgery and surgery is being planned for the of this month He denies any chest discomfort dizziness lightheadedness or palpitations On examination his breath sounds are reduced bilaterally but there are no rhonchi no crackles Heart sounds are normal and regular Blood pressure 119/71 mmHg pulse rate is in the 60s afebrile Impression multivessel coronary artery disease awaiting surgical revascularization He has had multiple stents placed in the RCA which is completely occluded He has been noncompliant with medications He is a current smoker A history of alcohol use Noncompliance with office visits. He had an office visit scheduled in [facility] but he did not keep He has not been taking any medications for his heart conditions The likelihood of future compliance is low transferred to and coronary stenting to the LAD poses a serious risk of restenosis or thrombosis if he remains noncompliant Objective - Vital Signs Vital signs: Vital Signs Temp 97.6 F 09/14/23 07:20 Pulse 57 L 09/14/23 07:20 Resp 18 09/14/23 08:35 BP 108/69 09/14/23 07:20 Pulse Ox 95 09/14/23 07:20 FiO2 Intake & Output 09/13/23 09/14/23 09/14/23 18:59 06:59 18:59 Intake Total 358 Balance 358 Intake: Oral 358 Other: Voiding Method Toilet Toilet Toilet # Voids 2 2 - Labs CBC & Chem 7: 09/13/23 06:05 09/13/23 06:05
--- NOTE | 2023-09-14 20:44 | P.PN ---
Subjective Progress Note Date: 09/14/23 58-year-old male patient known history of coronary artery disease with previous coronary stenting along with hypertension hyperlipidemia and previous history of tobacco marijuana smoking and previous history of heavy alcohol drinking along with history of PAD, carotid artery stenosis on the left and a strong family history of coronary disease. The patient presented with complaints of chest pain and the patient underwent a cardiac catheterization the patient was found to have 80% stenosis of the LAD in its mid segment, 100% ostial RCA, 100% in- stent restenosis of the RCA and right to left collaterals and filling of the PDA and PL branches. The patient is currently being worked up for coronary artery bypass surgery. The patient had negative troponins. Renal function is stable with a normal creatinine, normal electrolytes, normal CBC and the viral screen was negative and the chest x-ray showed no acute cardiopulmonary abnormalities and the patient further had a CT scan of the chest on 09/11/2023 that showed no acute thoracic process, 4 mm right upper lobe pulmonary nodule, moderate to sev ere three-vessel coronary disease along with mild atherosclerotic disease involving the aorta and its branches and moderate atherosclerotic disease involving the bilateral renal arteries and mild background COPD. Echo done on 09/11/2023 showed preserved LV function along with segmental wall motion a bnormalities involving the inferior and septal wall and the carotid Dopplers showed completely occluded left internal carotid artery without any flow. The patient is currently on room air oxygen with a pulse ox of 95%. The patient was seen by cardiothoracic surgery. He is not normal sinus rhythm. Plan for bypass surgery on 09/17/2023. 09/13/2023, the patient remains free of any chest pain. No specific complaints. The plan is to undergo coronary bypass surgery next week. The patient denies having any new complaints otherwise. Surgery will be done by Dr. Dee. Hemoglobin is at least 15.5 with a white cell count of 8.9. Electrolytes are within normal limits. 09/14/2023, no new complaints and the patient is still scheduled to undergo surgery on 09/17/2023. Ambulating. Incentive spirometer. No complaints. Cardiac rhythm remained sinus. No labs from today. Medications remain un changed. The patient is on room air oxygen. Objective - Vital Signs Vital signs: Vital Signs Temp 98.1 F 09/14/23 18:52 Pulse 62 09/14/23 18:52 Resp 15 09/14/23 18:52 BP 104/65 09/14/23 18:52 Pulse Ox 98 09/14/23 18:52 FiO2 Intake & Output 09/14/23 09/14/23 09/15/23 06:59 18:59 06:59 Intake Total 358 Balance 358 Intake: Oral 358 Other: Voiding Method Toilet Toilet # Voids 2 3 - Exam CONSTITUTIONAL: Appears comfortable, cooperative, no acute distress head exam was generally normal. There was no scleral icterus or corneal arcus. Mucous membranes were moist. Neck was supple and without jugular venous distension, thyromegaly, or carotid bruits. Carotids were easily palpable bilaterally. There was no adenopathy. RESPIRATORY: Lungs sounds diminished bilaterally. Respirations even, nonlabored. Currently on room air with oxygen saturation 95% CARDIOVASCULAR: S1, S2 present. Regular rate and rhythm, sinus rhythm on telemetry. Palpable peripheral pulses bilaterally. No edema present. No calf pain or tenderness noted GASTROINTESTINAL: Abdomen soft, nontender, nondistended. Active bowel sounds present 4 quadrants. Tolerating diet GENITOURINARY: Continues to void INTEGUMENTARY: Skin is warm and dry NEUROLOGIC: Cranial nerves II through XII intact MUSKULOSKELETAL: Able to move all extremities, strength equal bilaterally, gait normal PSYCHIATRIC: Alert and oriented to person place and time, appropriate affect, intact judgment and insight - Labs CBC & Chem 7: 09/13/23 06:05 09/13/23 06:05 Assessment and Plan Plan: Symptomatic multivessel coronary artery disease. The patient is known to have coronary disease and the patient has had previous coronary stents. Currently has extensive disease and the patient is being planned for coronary artery bypass surgery on 09/17/2023. Currently free of any chest pain. Cardiac enzymes are negative. Echocardiogram shows a preserved LV function. Multiple myocardial infarctions with multiple stents Hypertension Hyperlipidemia COPD, mild with an FEV1 of 91% of predicted Chronic smoker Nightly marijuana use for anxiety Previous heavy EtOH use with admission earlier this year to [place], does admit to still drinking about 2 beers a month Peripheral arterial disease with claudication, right TRELL 0.71, left TRELL 0.64 Left internal carotid stenosis 100% with possible TIA in the past Medical noncompliance Family history of premature coronary artery disease Nonspecific right upper lobe pulmonary nodule measuring 4 mm in size Plan: No new complaints and I explained to the patient details of the postop care that we will be needed Currently free of any chest pain Pulmonary status is stable Chest x-ray and the CAT scan of the chest and the spirometry was noted Continue to maximize medical therapy with aspirin, statin, beta-ingrid Tentatively we have scheduled the patient for off-pump coronary artery bypass surgery with left internal mammary artery and endoscopic vein harvest, left atrial appendage ligation by Dr. Dee next , September 17, 2023 Will be assisting in the postoperative vent management and respiratory care.
--- NOTE | 2023-09-15 11:37 | P.PN ---
Subjective Progress Note Date: 09/15/23 Hospital Course: Patient is a 58-year-old male with history of CAD status post stents, hyperten velasquez, hyperlipidemia, nicotine dependence, anxiety with depression and nightly cannabis use. He presented to the emergency department on 09/08/2023 secondary to a chief complaint of chest pain. He underwent evaluation in the emergency department. Vital signs upon arrival show blood pressure 160/90, heart rate 80, respiratory rate 18, temp 98.6 F, and SpO2 of 96% on room air. EKG was completed showing normal sinus rhythm at 68 bpm with prominent Q waves in inferior leads. Chest x-ray was negative for acute cardiopulmonary process. Completed and reviewed. CBC revealed leukocytosis with WBC count of 12.4. Coagulation profile normal findings. BMP unremarkable. Magnesium was 1.9. Liver profile unremarkable. Troponin was negative at less than 0.012. Patient was admitted under services with consultation to cardiology. Troponins trended overnight resulting at less than 0.012 x 3 draws. Lipid profile revealed elevated triglycerides of 164 and total cholesterol of 203.00. Hemoglobin A1c 5.5%. Patient went for a cardiac stress test which was positive for reversible ischemia. Cardiology then took patient for cardiac catheterization revealing 80% stenosis of mid LAD and 100% stenosis of RCA. Cardiology stated patient is not an appropriate candidate for PCI with stenting as he has shown evidence of in-stent restenosis and consulted cardiothoracic surgery for evaluation for b ypass. Cardiothoracic surgery evaluating and planning to take patient for coronary artery bypass grafting x 2 on 09/17/2023. Echocardiogram completed showing a preserved EF of 50 to 55% with no significant valvular or structural abnormalities reported. Subjective: Patient seen and examined at bedside. No acute events overnight. Pertinent positives and negatives as discussed above, a complete review of systems was performed and all other systems are negative. Vitals Signs Reviewed. General: Nontoxic, no distress, appears at stated age Derm: Warm, dry Head: Atraumatic, normocephalic, symmetric Eyes: EOMI, no lid lag, anicteric sclera Mouth: No lip lesion, mucus membranes moist Cardiovascular: S1S2 reg, no murmur Lungs: CTA bilateral, no rhonchi, no rales, no accessory muscle use Abdominal: Soft, nontender to palpation, no guarding, no appreciable organomegaly Ext: No gross muscle atrophy, no edema, no contractures Neuro: CN II-XI grossly intact, no focal neuro deficits Psych: Alert, oriented, appropriate affect Data Reviewed Today: Pertinent Labs: No new labs Imaging: No new imaging Assessment and Plan: Occlusive coronary artery disease Chest pain, secondary to above CAD with previous stenting x7 Hypertension Hyperlipidemia Nicotine dependence Anxiety -Cardiology following, cardiac cath revealing 80% stenosis of mid LAD and 100% stenosis of RCA. Cardiology stated patient is not an appropriate candidate for PCI with stenting as he has shown evidence of in-stent restenosis and consulted cardiothoracic surgery for evaluation for bypass. -Cardiothoracic surgery following, planning for coronary artery bypass grafting x 2 on 09/17/2023. -Continue telemetry monitoring. -Continue cardiac medication regimen with aspirin 81 mg daily, atorvastatin 80 mg nightly, carvedilol 12.5 mg twice daily, isosorbide mononitrate 30 mg daily, and losartan 100 mg daily. -Echocardiogram completed showing a preserved EF of 50 to 55% with no significant valvular or structural abnormalities reported. -Recommend smoking cessation during this admission, patient declined nicotine patch Pulmonary nodule -CT chest was completed and radiology report reviewed showing a right upper lobe 4 mm pulmonary nodule. Patient high risk secondary to smoking history will need repeat CT chest in 12 months. DVT ppx: Subcu heparin Code status: Full code Anticipated discharge place: Pending clinical course Anticipated discharge time: Pending clinical course Objective - Vital Signs Vital signs: Vital Signs Temp 97.7 F 09/15/23 06:40 Pulse 58 L 09/15/23 06:40 Resp 16 09/15/23 08:16 BP 155/85 09/15/23 06:40 Pulse Ox 98 09/15/23 06:40 FiO2 Intake & Output 09/14/23 09/15/23 09/15/23 18:59 06:59 18:59 Intake Total 358 120 Balance 358 120 Intake: Oral 358 120 Other: Voiding Method Toilet Toilet Toilet # Voids 3 2 - Labs CBC & Chem 7: 09/13/23 06:05 09/13/23 06:05
--- NOTE | 2023-09-15 12:06 | P.PN ---
Subjective Progress Note Date: 09/15/23 Principal diagnosis: Coronary artery disease. History of multiple myocardial infarctions with multiple stents, hypertension, hyperlipidemia, current tobacco dependence with cessation upon admission to the hospital, nightly marijuana use for anxiety, previous heavy EtOH use with admission earlier this year to [facility], does admit to still drinking about 2 beers a month, peripheral arterial disease with claudication, left internal carotid stenosis 100% with possible TIA in the past, medical noncompliance, family history of premature coronary artery disease The patient was seen and examined in follow-up today September 15, 2023 at his bedside on the 6 floor cardiac observation unit. The patient is currently sitting up to the bedside edge, eating his breakfast and tolerating well. Denies any further complaints of shortness of breath, chest pain nausea or vomiting. Preoperative teaching has been completed and reinforced with the patient. The importance of smoking cessation has also been discussed with the patient in detail. Oxygen saturations are 97% on room air and he is achieving 3000 to 3500 mL on his incentive spirometry with encouragement. Remote telemetr y is showing sinus bradycardia heart rate 53 bpm. He remains hemodynamically stable and is currently on no inotropic or pressor support. Objective - Vital Signs Vital signs: Vital Signs Temp 97.7 F 09/15/23 06:40 Pulse 58 L 09/15/23 06:40 Resp 16 09/15/23 08:16 BP 155/85 09/15/23 06:40 Pulse Ox 98 09/15/23 06:40 FiO2 Intake & Output 09/14/23 09/15/23 09/15/23 18:59 06:59 18:59 Intake Total 358 120 Balance 358 120 Intake: Oral 358 120 Other: Voiding Method Toilet Toilet Toilet # Voids 3 2 - Exam CONSTITUTIONAL: Appears comfortable, cooperative, no acute distress. RESPIRATORY: Lungs sounds diminished bilaterally. Respirations even, nonlabored. Currently on room air with oxygen saturation 97%, achieving 3500 mL on his incentive spirometry with encouragement. CARDIOVASCULAR: S1, S2 present. Regular rate and bradycardic rhythm, sinus bradycardia rhythm on telemetry. Palpable peripheral pulses bilaterally. No edema present. No calf pain or tenderness noted. GASTROINTESTINAL: Abdomen soft, nontender, nondistended. Active bowel sounds present 4 quadrants. Tolerating diet. GENITOURINARY: Continues to void. INTEGUMENTARY: Skin is warm and dry. No clubbing or cyanosis is present. NEUROLOGIC: Cranial nerves II through XII intact. No focal deficits. MUSKULOSKELETAL: Able to move all extremities, strength equal bilaterally, gait normal. PSYCHIATRIC: Alert and oriented to person place and time, appropriate affect, intact judgment and insight. - Allied health notes Allied health notes reviewed: nursing - Labs CBC & Chem 7: 09/13/23 06:05 09/13/23 06:05 Assessment and Plan Assessment: Coronary artery disease Multiple myocardial infarctions with multiple stents Hypertension Hyperlipidemia, cholesterol 203, LDL 123 Current tobacco dependence with cessation upon admission to the hospital, FEV1 91% of predicted Nightly marijuana use for anxiety Previous heavy EtOH use with admission earlier this year to [facility], does admit to still drinking about 2 beers a month Peripheral arterial disease with claudication, right TRELL 0.71, left TRELL 0.64 Left internal carotid stenosis 100% with possible TIA in the past Medical noncompliance Family history of premature coronary artery disease Plan: Continue to maximize medical therapy with aspirin, statin, beta-ingrid. Increase activity as tolerated. Encourage incentive spirometry use 10 times every hour while awake. Discussed the importance of smoking cessation with the patient, upon discharge he will be given a number to 1-800quitnow. Medical management of other comorbidities per internal medicine, cardiology. Tentatively we have scheduled the patient for off-pump coronary artery bypass brooks rgery with left internal mammary artery, and endoscopic vein harvest, left atrial appendage ligation by Dr. Dee next Sunday September 17, 2023. More recommendations to follow based on patient's clinical course. Time with Patient: Less than 30
--- NOTE | 2023-09-15 13:20 | P.PN ---
Subjective Progress Note Date: 09/15/23 58-year-old male patient known history of coronary artery disease with previous coronary stenting along with hypertension hyperlipidemia and previous history of tobacco marijuana smoking and previous history of heavy alcohol drinking along with history of PAD, carotid artery stenosis on the left and a strong family history of coronary disease. The patient presented with complaints of chest pain and the patient underwent a cardiac catheterization the patient was found to have 80% stenosis of the LAD in its mid segment, 100% ostial RCA, 100% in- stent restenosis of the RCA and right to left collaterals and filling of the PDA and PL branches. The patient is currently being worked up for coronary artery bypass surgery. The patient had negative troponins. Renal function is stable with a normal creatinine, normal electrolytes, normal CBC and the viral screen was negative and the chest x-ray showed no acute cardiopulmonary abnormalities and the patient further had a CT scan of the chest on 09/11/2023 that showed no acute thoracic process, 4 mm right upper lobe pulmonary nodule, moderate to sev ere three-vessel coronary disease along with mild atherosclerotic disease involving the aorta and its branches and moderate atherosclerotic disease involving the bilateral renal arteries and mild background COPD. Echo done on 09/11/2023 showed preserved LV function along with segmental wall motion a bnormalities involving the inferior and septal wall and the carotid Dopplers showed completely occluded left internal carotid artery without any flow. The patient is currently on room air oxygen with a pulse ox of 95%. The patient was seen by cardiothoracic surgery. He is not normal sinus rhythm. Plan for bypass surgery on 09/17/2023. 09/13/2023, the patient remains free of any chest pain. No specific complaints. The plan is to undergo coronary bypass surgery next week. The patient denies having any new complaints otherwise. Surgery will be done by Dr. Dee. Hemoglobin is at least 15.5 with a white cell count of 8.9. Electrolytes are within normal limits. 09/14/2023, no new complaints and the patient is still scheduled to undergo surgery on 09/17/2023. Ambulating. Incentive spirometer. No complaints. Cardiac rhythm remained sinus. No labs from today. Medications remain un changed. The patient is on room air oxygen. 09/15/2023, patient is on the 6 floor. Sitting up on the chair. Tolerating diet. No chest pain. Using incentive spirometer. Cardiac rhythm is sinus. No signs of any delirium tremens. Labs from 09/13/2023 were reviewed. No other labs for today. Objective - Vital Signs Vital signs: Vital Signs Temp 97.7 F 09/15/23 06:40 Pulse 58 L 09/15/23 06:40 Resp 16 09/15/23 08:16 BP 155/85 09/15/23 06:40 Pulse Ox 98 09/15/23 06:40 FiO2 Intake & Output 09/14/23 09/15/23 09/15/23 18:59 06:59 18:59 Intake Total 358 120 Balance 358 120 Intake: Oral 358 120 Other: Voiding Method Toilet Toilet Toilet # Voids 3 2 - Exam CONSTITUTIONAL: Appears comfortable, cooperative, no acute distress head exam was generally normal. There was no scleral icterus or corneal arcus. Mucous membranes were moist. Neck was supple and without jugular venous distension, thyromegaly, or carotid bruits. Carotids were easily palpable bilaterally. There was no adenopathy. RESPIRATORY: Lungs sounds diminished bilaterally. Respirations even, nonlabored. Currently on room air with oxygen saturation 95% CARDIOVASCULAR: S1, S2 present. Regular rate and rhythm, sinus rhythm on telemetry. Palpable peripheral pulses bilaterally. No edema present. No calf pain or tenderness noted GASTROINTESTINAL: Abdomen soft, nontender, nondistended. Active bowel sounds present 4 quadrants. Tolerating diet GENITOURINARY: Continues to void INTEGUMENTARY: Skin is warm and dry NEUROLOGIC: Cranial nerves II through XII intact MUSKULOSKELETAL: Able to move all extremities, strength equal bilaterally, gait normal PSYCHIATRIC: Alert and oriented to person place and time, appropriate affect, intact judgment and insight - Labs CBC & Chem 7: 09/13/23 06:05 09/13/23 06:05 Assessment and Plan Plan: Symptomatic multivessel coronary artery disease. The patient is known to have coronary disease and the patient has had previous coronary stents. Currently has extensive disease and the patient is being planned for coronary artery bypass surgery on 09/17/2023. Currently free of any chest pain. Cardiac enzymes are negative. Echocardiogram shows a preserved LV function. Multiple myocardial infarctions with multiple stents Hypertension Hyperlipidemia COPD, mild with an FEV1 of 91% of predicted Chronic smoker Nightly marijuana use for anxiety Previous heavy EtOH use with admission earlier this year to [place], does admit to still drinking about 2 beers a month Peripheral arterial disease with claudication, right TRELL 0.71, left TRELL 0.64 Left internal carotid stenosis 100% with possible TIA in the past Medical noncompliance Family history of premature coronary artery disease Nonspecific right upper lobe pulmonary nodule measuring 4 mm in size Plan: No new complaints and I explained to the patient details of the postop care that we will be needed Currently free of any chest pain Pulmonary status is stable Chest x-ray and the CAT scan of the chest and the spirometry was noted Continue to maximize medical therapy with aspirin, statin, beta-ingrid Tentatively we have scheduled the patient for off-pump coronary artery bypass surgery with left internal mammary artery and endoscopic vein harvest, left atrial appendage ligation by Dr. Dee next , September 17, 2023 Will be assisting in the postoperative vent management and respiratory care.
--- NOTE | 2023-09-15 20:37 | P.PN ---
Subjective Progress Note Date: 09/15/23 Patient is stable from a cardiovascular standpoint He is ambulating around his room He has just been seen by pulmonary medicine and CT surgery and surgery is being planned for the of this month He denies any chest discomfort dizziness lightheadedness or palpitations On examination his breath sounds are reduced bilaterally but there are no rhonchi no crackles Heart sounds are normal and regular Impression multivessel coronary artery disease awaiting surgical revascularization He has had multiple stents placed in the RCA which is completely occluded He has been noncompliant with medications He is a current smoker A history of alcohol use Noncompliance with office visits. He had an office visit scheduled in [facility] but he did not show He has not been taking any medications for his heart conditions The likelihood of future compliance is low transferred to and coronary stenting to the LAD poses a serious risk of restenosis or thrombosis if he remains noncompliant Objective - Vital Signs Vital signs: Vital Signs Temp 98.8 F 09/15/23 19:08 Pulse 78 09/15/23 19:08 Resp 16 09/15/23 19:08 BP 118/71 09/15/23 19:08 Pulse Ox 100 09/15/23 19:08 FiO2 Intake & Output 09/15/23 09/15/23 09/16/23 06:59 18:59 06:59 Intake Total 320 Balance 320 Intake: Oral 320 Other: Voiding Method Toilet Toilet # Voids 2 4 - Labs CBC & Chem 7: 09/13/23 06:05 09/13/23 06:05
[2023-09-16 10:15] LABS: HCT 47.6 % (39.6-50.0); HGB 16.2 g/dL (13.0-17.0); MCH 32.1 pg (27.0-32.0); MCV 94.3 FL (80.0-97.0); Mean Platelet Volume 12.1 FL (9.5-12.2); NRBC Per 100 WBC 0 X 10*3/uL (0.00-0.01); Platelet Count 203 X 10*3/uL (140-440); RBC 5.05 X 10*6/uL (4.40-5.60); RDW 13.2 % (11.5-14.5); WBC 9.01 X 10*3/uL (4.50-10.00)
[2023-09-16 10:24] LABS: Magnesium 2.2 mg/dL (1.5-2.4)
--- NOTE | 2023-09-16 10:26 | P.PN ---
Subjective HISTORY OF PRESENT ILLNESS: Patient examined this morning the bedside. He is sitting on the side of the bed. Patient currently denies any chest pain or pressure. He denies any shortness of breath. He does report feeling anxious about his surgery tomorrow. Echocardiogram completed revealing ejection fraction 50 to 55%. Vital signs are stable. PHYSICAL EXAM: VITAL SIGNS: Reviewed. GENERAL: Well-developed in no acute distress. NECK: Supple. No JVD or thyromegaly LUNGS: Respirations even and unlabored. Lungs essentially clear to auscultation bilaterally. HEART: Regular rate and rhythm. S1 and S2 heard. EXTREMITIES: Normal range of motion. No clubbing or cyanosis. Peripheral pulses intact. No lower extremity edema ASSESSMENT: Chest pain s/p cardiac catheterization revealing 80% mid LAD stenosis, 100% ostial RCA stenosis, prior stenting of RCA with 100% in-stent restenosis Coronary artery disease with history of multiple stents Hypertension Hyperlipidemia Peripheral arterial disease Left internal carotid stenosis, 100% History of alcohol abuse with admission earlier this year to [facility] Nicotine dependence Marijuana use Family history of premature coronary artery disease PLAN: Continue current cardiac medications Smoking cessation recommended. Patient to be referred to [place] quit line upon discharge. Continue telemetry monitoring. Continue to monitor blood pressure Patient to undergo CABG tomorrow Further recommendations pending patient course Nurse practitioner note has been reviewed by physician. Signing provider agrees with the documented findings, assessment, and plan of care documented by PROGRAM AND RESEARCH COORDINATOR as a scribe. Objective - Vital Signs Vital signs: Vital Signs Temp 97.7 F 09/16/23 07:45 Pulse 61 09/16/23 07:45 Resp 16 09/16/23 07:45 BP 131/74 09/16/23 07:45 Pulse Ox 97 09/16/23 07:45 FiO2 Intake & Output 09/15/23 09/16/23 09/16/23 18:59 06:59 18:59 Intake Total 320 Balance 320 Intake: Oral 320 Other: Voiding Method Toilet Toilet # Voids 4 2 - Labs CBC & Chem 7: 09/16/23 05:45 09/13/23 06:05 Labs: Abnormal Lab Results - Last 24 Hours (Table) 09/16/23 Range/Units 05:45 Crossmatch See Detail
--- NOTE | 2023-09-16 10:48 | P.PN ---
Subjective Progress Note Date: 09/16/23 Principal diagnosis: Coronary artery disease. History of multiple myocardial infarctions with multiple stents, hypertension, hyperlipidemia, current tobacco dependence with cessation upon admission to the hospital, nightly marijuana use for anxiety, previous heavy EtOH use with admission earlier this year to [place], does admit to still drinking about 2 beers a month, peripheral arterial disease with claudication, left internal carotid stenosis 100% with possible TIA in the past, medical noncompliance, family history of premature coronary artery disease. The patient was seen and examined in follow-up today September 16, 2023 at his bedside on the 6 floor cardiac observation unit in conjunction with Dr. Dee. The patient is sitting up in bed, is awake, alert, oriented x 3 and is in no acute apparent distress. Denies any complaints of pain or shortness of breath at this time. Preoperative teaching has been reinforced with the patient. He is tentatively scheduled for off-pump coronary artery bypass grafting surgery tomorrow September 17, 2023 to be performed by Dr. Dee. The patient reports he has been up ambulating in the hallway with standby assistance or nursing staff and tolerating well. The patient does report feeling a little anxious for tomorrow. Laboratory results were reviewed. Objective - Vital Signs Vital signs: Vital Signs Temp 97.7 F 09/16/23 07:45 Pulse 61 09/16/23 07:45 Resp 16 09/16/23 07:45 BP 131/74 09/16/23 07:45 Pulse Ox 97 09/16/23 07:45 FiO2 Intake & Output 09/15/23 09/16/23 09/16/23 18:59 06:59 18:59 Intake Total 320 Balance 320 Intake: Oral 320 Other: Voiding Method Toilet Toilet # Voids 4 2 - Exam CONSTITUTIONAL: Appears comfortable, cooperative, no acute distress. RESPIRATORY: Lungs sounds diminished bilaterally. Respirations symmetrical, nonlabored. Currently on room air with oxygen saturation 97%, achieving 3500 mL on his incentive spirometry with encouragement. CARDIOVASCULAR: S1, S2 present. Regular rate and bradycardic rhythm, sinus bradycardia rhythm on telemetry. Palpable peripheral pulses bilaterally. No edema present. No calf pain or tenderness noted. GASTROINTESTINAL: Abdomen soft, nontender, nondistended. Active bowel sounds present 4 quadrants. Tolerating diet. GENITOURINARY: Continues to void. INTEGUMENTARY: Skin is warm and dry. No clubbing or cyanosis is present. NEUROLOGIC: Cranial nerves II through XII intact. No focal deficits. MUSKULOSKELETAL: Able to move all extremities, strength equal bilaterally, gait normal. PSYCHIATRIC: Alert and oriented to person place and time, appropriate affect, intact judgment and insight. - Allied health notes Allied health notes reviewed: nursing - Labs CBC & Chem 7: 09/16/23 05:45 09/13/23 06:05 Labs: Abnormal Lab Results - Last 24 Hours (Table) 09/16/23 09/16/23 Range/Units 05:45 05:45 MCH 32.1 H (27.0-32.0) pg Crossmatch See Detail Assessment and Plan Assessment: Coronary artery disease Multiple myocardial infarctions with multiple stents Hypertension Hyperlipidemia, cholesterol 203, LDL 123 Current tobacco dependence with cessation upon admission to the hospital, FEV1 91% of predicted Nightly marijuana use for anxiety Previous heavy EtOH use with admission earlier this year to [place], does admit to still drinking about 2 beers a month Peripheral arterial disease with claudication, right TRELL 0.71, left TRELL 0.64 Left internal carotid stenosis 100% with possible TIA in the past Medical noncompliance Family history of premature coronary artery disease Plan: Continue to maximize medical therapy with aspirin, statin, beta-ingrid. Increase activity as tolerated. Encourage incentive spirometry use 10 times every hour while awake. Discussed the importance of smoking cessation with the patient, upon discharge he will be given a number to 1-800quitnow. Medical management of other comorbidities per internal medicine, cardiology. Tentatively we have scheduled the patient for off-pump coronary artery bypass surgery with left internal mammary artery, and endoscopic vein harvest, left atrial appendage ligation by Dr. Dee next Sunday September 17, 2023. N.p.o. after midnight More recommendations to follow based on patient's clinical course. Time with Patient: Less than 30
[2023-09-16 10:52] LABS: ALT 42 U/L (10-49); AST 28 U/L (14-35); Albumin 4.7 g/dL (3.8-4.9); Albumin/Globulin Ratio 2.47 Ratio (1.60-3.17); Alkaline Phosphatase 91 U/L (41-126); BUN/Creat Ratio 23.11 Ratio (12.00-20.00); Blood Urea Nitrogen 20.8 mg/dL (9.0-27.0); Calcium 9.5 mg/dL (8.7-10.3); Carbon Dioxide 21.4 mmol/L (21.6-31.8); Chloride 102 mmol/L (96-109); Globulin 1.9 g/dL (1.6-3.3); Glucose 90 mg/dL (70-110); Potassium 4.4 mmol/L (3.5-5.5); Sodium 137 mmol/L (135-145); Total Bilirubin 0.3 mg/dL (0.3-1.2); Total Protein 6.6 g/dL (6.2-8.2)
--- NOTE | 2023-09-16 11:35 | P.PN ---
Subjective Progress Note Date: 09/16/23 Hospital Course: Patient is a 58-year-old male with history of CAD status post stents, hyperten velasquez, hyperlipidemia, nicotine dependence, anxiety with depression and nightly cannabis use. He presented to the emergency department on 09/08/2023 secondary to a chief complaint of chest pain. He underwent evaluation in the emergency department. Vital signs upon arrival show blood pressure 160/90, heart rate 80, respiratory rate 18, temp 98.6 F, and SpO2 of 96% on room air. EKG was completed showing normal sinus rhythm at 68 bpm with prominent Q waves in inferior leads. Chest x-ray was negative for acute cardiopulmonary process. Completed and reviewed. CBC revealed leukocytosis with WBC count of 12.4. Coagulation profile normal findings. BMP unremarkable. Magnesium was 1.9. Liver profile unremarkable. Troponin was negative at less than 0.012. Patient was admitted under services with consultation to cardiology. Troponins trended overnight resulting at less than 0.012 x 3 draws. Lipid profile revealed elevated triglycerides of 164 and total cholesterol of 203.00. Hemoglobin A1c 5.5%. Patient went for a cardiac stress test which was positive for reversible ischemia. Cardiology then took patient for cardiac catheterization revealing 80% stenosis of mid LAD and 100% stenosis of RCA. Cardiology stated patient is not an appropriate candidate for PCI with stenting as he has shown evidence of in-stent restenosis and consulted cardiothoracic surgery for evaluation for b ypass. Cardiothoracic surgery evaluating and planning to take patient for coronary artery bypass grafting x 2 on 09/17/2023. Echocardiogram completed showing a preserved EF of 50 to 55% with no significant valvular or structural abnormalities reported. Subjective: Patient seen and examined at bedside. No acute events overnight. Patient has significant social issues including homelessness. Pertinent positives and negatives as discussed above, a complete review of systems was performed and all other systems are negative. Vitals Signs Reviewed. General: Nontoxic, no distress, appears at stated age Derm: Warm, dry Head: Atraumatic, normocephalic, symmetric Eyes: EOMI, no lid lag, anicteric sclera Mouth: No lip lesion, mucus membranes moist Cardiovascular: S1S2 reg, no murmur Lungs: CTA bilateral, no rhonchi, no rales, no accessory muscle use Abdominal: Soft, nontender to palpation, no guarding, no appreciable organomegaly Ext: No gross muscle atrophy, no edema, no contractures Neuro: CN II-XI grossly intact, no focal neuro deficits Psych: Alert, oriented, appropriate affect Data Reviewed Today: Pertinent Labs: Hemoglobin 16.2, WBC 9.01, creatinine 0.9, magnesium 2.2 Imaging: No new imaging Assessment and Plan: Occlusive coronary artery disease Chest pain, secondary to above CAD with previous stenting x7 Hypertension Hyperlipidemia Nicotine dependence Anxiety -Cardiology following, cardiac cath revealing 80% stenosis of mid LAD and 100% stenosis of RCA. Cardiology stated patient is not an appropriate candidate for PCI with stenting as he has shown evidence of in-stent restenosis and consulted cardiothoracic surgery for evaluation for bypass. -Discussed management with cardiothoracic surgery, likely surgery tomorrow -Continue telemetry monitoring. -Continue cardiac medication regimen with aspirin 81 mg daily, atorvastatin 80 mg nightly, carvedilol 12.5 mg twice daily, isosorbide mononitrate 30 mg daily, and losartan 100 mg daily. -Echocardiogram completed showing a preserved EF of 50 to 55% with no significant valvular or structural abnormalities reported. -Recommend smoking cessation during this admission, patient declined nicotine patch Pulmonary nodule -CT chest was completed and radiology report reviewed showing a right upper lobe 4 mm pulmonary nodule. Patient high risk secondary to smoking history will need repeat CT chest in 12 months. 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 DVT ppx: Subcu heparin Code status: Full code Anticipated discharge place: Pending clinical course Anticipated discharge time: Pending clinical course Objective - Vital Signs Vital signs: Vital Signs Temp 97.7 F 09/16/23 07:45 Pulse 61 09/16/23 07:45 Resp 16 09/16/23 07:45 BP 131/74 09/16/23 07:45 Pulse Ox 97 09/16/23 07:45 FiO2 Intake & Output 09/15/23 09/16/23 09/16/23 18:59 06:59 18:59 Intake Total 320 Balance 320 Intake: Oral 320 Other: Voiding Method Toilet Toilet # Voids 4 2 - Labs CBC & Chem 7: 09/16/23 05:45 09/16/23 05:45 Labs: Abnormal Lab Results - Last 24 Hours (Table) 09/16/23 09/16/23 09/16/23 Range/Units 05:45 05:45 05:45 MCH 32.1 H (27.0-32.0) pg Carbon Dioxide 21.4 L (21.6-31.8) mmol/L Anion Gap 13.60 H (4.00-12.00) mmol/L BUN/Creatinine Ratio 23.11 H (12.00-20.00) Ratio Crossmatch See Detail
--- NOTE | 2023-09-16 13:13 | P.PN ---
Subjective Progress Note Date: 09/16/23 58-year-old male patient known history of coronary artery disease with previous coronary stenting along with hypertension hyperlipidemia and previous history of tobacco marijuana smoking and previous history of heavy alcohol drinking along with history of PAD, carotid artery stenosis on the left and a strong family history of coronary disease. The patient presented with complaints of chest pain and the patient underwent a cardiac catheterization the patient was found to have 80% stenosis of the LAD in its mid segment, 100% ostial RCA, 100% in- stent restenosis of the RCA and right to left collaterals and filling of the PDA and PL branches. The patient is currently being worked up for coronary artery bypass surgery. The patient had negative troponins. Renal function is stable with a normal creatinine, normal electrolytes, normal CBC and the viral screen was negative and the chest x-ray showed no acute cardiopulmonary abnormalities and the patient further had a CT scan of the chest on 09/11/2023 that showed no acute thoracic process, 4 mm right upper lobe pulmonary nodule, moderate to regina re three-vessel coronary disease along with mild atherosclerotic disease involving the aorta and its branches and moderate atherosclerotic disease involving the bilateral renal arteries and mild background COPD. Echo done on 09/11/2023 showed preserved LV function along with segmental wall motion ab normalities involving the inferior and septal wall and the carotid Dopplers showed completely occluded left internal carotid artery without any flow. The patient is currently on room air oxygen with a pulse ox of 95%. The patient was seen by cardiothoracic surgery. He is not normal sinus rhythm. Plan for bypass surgery on 09/17/2023. 09/13/2023, the patient remains free of any chest pain. No specific complaints. The plan is to undergo coronary bypass surgery next week. The patient denies having any new complaints otherwise. Surgery will be done by Dr. Dee. Hemoglobin is at least 15.5 with a white cell count of 8.9. Electrolytes are within normal limits. 09/14/2023, no new complaints and the patient is still scheduled to undergo surgery on 09/17/2023. Ambulating. Incentive spirometer. No complaints. Cardiac rhythm remained sinus. No labs from today. Medications remain unc hanged. The patient is on room air oxygen. 09/15/2023, patient is on the 6 floor. Sitting up on the chair. Tolerating diet. No chest pain. Using incentive spirometer. Cardiac rhythm is sinus. No signs of any delirium tremens. Labs from 09/13/2023 were reviewed. No other labs for today. The patient is seen today September 16, 2023 in follow-up on the regular medical floor. He is awake and alert in no acute distress. Sitting up in bed. He denies any shortness of breath, cough or congestion. He is maintaining good O2 saturations in the 90s on room air. He is working well with his incentive spirometer. He denies any chest pain or palpitations. White count 9.0. Hemoglobin 16.2. Platelets 203. Sodium 137. Potassium 4.4. Bicarb 21. BUN 21. Creatinine 0.9. Glucose 90. He remains on heparin for DVT prophylaxis. Objective - Vital Signs Vital signs: Vital Signs Temp 97.7 F 09/16/23 07:45 Pulse 61 09/16/23 07:45 Resp 16 09/16/23 07:45 BP 131/74 09/16/23 07:45 Pulse Ox 97 09/16/23 07:45 FiO2 Intake & Output 09/15/23 09/16/23 09/16/23 18:59 06:59 18:59 Intake Total 320 Balance 320 Intake: Oral 320 Other: Voiding Method Toilet Toilet # Voids 4 2 - Exam GENERAL EXAM: Alert, active, 58-year-old male, on room air, comfortable in no apparent distress. HEAD: Normocephalic. EYES: Normal reaction of pupils, equal size. NOSE: Clear with pink turbinates. THROAT: No erythema or exudates. NECK: No masses, no JVD. CHEST: No chest wall deformity. LUNGS: Equal air entry with no crackles, wheeze, rhonchi or dullness. CVS: S1 and S2 normal with no audible murmur, regular rhythm. ABDOMEN: No hepatosplenomegaly, normal bowel sounds, no guarding or rigidity. SPINE: No scoliosis or deformity SKIN: No rashes CENTRAL NERVOUS SYSTEM: No focal deficits, tone is normal in all 4 extremities. EXTREMITIES: There is no peripheral edema. No clubbing, no cyanosis. Peripheral pulses are intact. - Labs CBC & Chem 7: 09/16/23 05:45 09/16/23 05:45 Labs: Abnormal Lab Results - Last 24 Hours (Table) 09/16/23 09/16/23 09/16/23 Range/Units 05:45 05:45 05:45 MCH 32.1 H (27.0-32.0) pg Carbon Dioxide 21.4 L (21.6-31.8) mmol/L Anion Gap 13.60 H (4.00-12.00) mmol/L BUN/Creatinine Ratio 23.11 H (12.00-20.00) Ratio Crossmatch See Detail Assessment and Plan Assessment: Symptomatic multivessel coronary artery disease. Currently has extensive disease and the patient is being planned for coronary artery bypass surgery on 09/17/2023. Currently free of any chest pain. Cardiac enzymes are negative. Echocardiogram shows a preserved LV function. Multiple myocardial infarctions with multiple stents Hypertension Hyperlipidemia COPD, mild with an FEV1 of 91% of predicted Chronic smoker Nightly marijuana use for anxiety Previous heavy EtOH use with admission earlier this year to [facility], does admit to still drinking about 2 beers a month Peripheral arterial disease with claudication, right TRELL 0.71, left TRELL 0.64 Left internal carotid stenosis 100% with possible TIA in the past Medical noncompliance Family history of premature coronary artery disease Nonspecific right upper lobe pulmonary nodule measuring 4 mm in size Plan: The patient was seen and evaluated Labs and medications reviewed Currently stable and on room air Working well with the incentive spirometer No chest discomfort this morning Plan is for off-pump coronary bypass surgery tomorrow We will continue to follow I have personally seen and examined the patient, performed the documentation and the assessment and plan as written. Number of minutes spent on the visit: 10.
[2023-09-16] MEDS: MD COMMUNICATION TO PHARMACY 1 EACH MISC PO ONE ×3 (17:48)
[2023-09-17] MEDS ORDERED: INSULIN REGULAR 100 UNIT in SODIUM CHLORIDE 0.9% 100 ML IV SCH (05:00)
[2023-09-17] MEDS ORDERED: NOREPINEPHRINE 4 MG in SODIUM CHLORIDE 0.9% 250 ML IV SCH (05:00)
[2023-09-17 05:17] LABS: Glucose,Whole Blood 99 mg/dL (70-110)
[2023-09-17] MEDS: ATORVASTATIN 10 MG TAB PO ONE (05:17)
[2023-09-17] MEDS: ASPIRIN 325 MG TAB PO ONE (05:17)
[2023-09-17] MEDS: METOPROLOL TARTRATE 12.5 MG TAB PO ONE (05:17)
[2023-09-17] MEDS: SODIUM CHLORIDE 0.9% 1,000 ML IV SCH (05:20)
[2023-09-17] MEDS: IV FLUID CONTINUATION 1,000 ML IV ONE (06:28)
[2023-09-17] MEDS ORDERED: SODIUM BICARB 8.4% 50 ML SYR (1 MEQ/ML) ONE (07:43)
[2023-09-17] MEDS ORDERED: ePHEDrine 50 MG/ML 1 ML VIAL ONE (07:43)
[2023-09-17] MEDS ORDERED: PROPOFOL 10 MG/ML 20 ML VIAL IV ONE (07:43)
[2023-09-17] MEDS ORDERED: HEPARIN SODIUM,PORCINE 10,000 UNIT/ML 1 ML VIAL ONE (07:43)
[2023-09-17] MEDS ORDERED: fentaNYL (PF) 50 MCG/ML 50 ML VIAL ONE (07:43)
[2023-09-17] MEDS ORDERED: ALBUMIN HUMAN 5% (25gm) 500 ML VIAL IVPB ONE (07:43)
[2023-09-17] MEDS ORDERED: VECURONIUM 10 MG VIAL IV ONE (07:43)
[2023-09-17] MEDS ORDERED: PROTAMINE SULFATE 10 MG/ML 25 ML VIAL IV ONE (07:43)
[2023-09-17] MEDS ORDERED: MIDAZOLAM HCL 10 MG/10 ML VIAL ONE (07:43)
--- NOTE | 2023-09-17 08:10 | P.ANPRN ---
Procedure Note - Anesthesia - Invasive Line Right Central Line Time Out Performed: Yes (0728) Date of Procedure: 09/17/23 Time of Procedure: 07:29 Location of Patient: Phase I Preparation: Sterile Prep, Sterile Dressing Central Line Location: Internal Jugular (right IJ Cordis) Ultrasound Used: Yes Purpose - Visualization and Identification of Vasculature: Yes Needle Guage: 18g angio Image Stored and Saved: Yes Narrative: Invasive line placement per sterile protocol utilized. Anesthesia note Procedure: Right internal jugular central venous catheter insertion: 8.5-[place] Cordis Sterile protocol followed. Right neck prepped. Ultrasound used. Lidocaine 1% used. Using ultrasound local anesthetic was instilled site over right Internal Jugular vein. Angiocath was used to gain access via ultrasound. Once free flow non-pulsatile blood flow was confirmed, 12 inch extension tubing was then placed on Angiocath. Once central venous pressure was confirmed, J-wire was then placed through Angiocath. Angiocath was then withdrawn. Local was instilled at J-wire site. Small skin fabi was then made with provided sterile scalpel. 8.5- Iranian Cordis was then inserted over the wire while maintaining control of wire at all times. Uneventful insertion with dilation. Free flow nonpulsatile blood flow through Cordis. Hooked up to IV tubing. Secured with suture. Dressings applied. Drapes Removed. Attempts x1.
--- NOTE | 2023-09-17 08:11 | P.ANPRN ---
Procedure Note - Anesthesia - Invasive Line Right [place] Nataly Time Out Performed: Yes (0728) Date of Procedure: 09/17/23 Time of Procedure: 07:40 Location of Patient: Phase I Preparation: Sterile Prep, Sterile Dressing [place] Natal[place] Line Location: Internal Jugular (right ij) Ultrasound Used: No Purpose - Visualization and Identification of Vasculature: No Image Stored and Saved: No Narrative: Invasive line placement per sterile protocol utilized. Anesthesia note Procedure right [place]-Nataly catheter placed through right internal jugular central venous catheter Sterile protocol maintained from previous procedure. [place]-Nataly catheter sterilely placed in sheath and flushed prior to insertion. After advancing 15 cm [place]-Nataly catheter was then slowly inserted with balloon up. Advanced through CVP, RV to PA waveform. [place]-Natal[place] catheter wedged around 48 cm. Balloon down. Catheter withdrawn 5 cm. . No wedge. Proximal and distal sites locked on sheath. Attempts x1. Sterile drapes removed and dressings applied.
[2023-09-17 08:28] LABS: ABG Base Excess -0.8 mmol/L; ABG Glucose Whole Blood 94 mg/dL (75-99); ABG HCO3 24 mmol/L (21-25); ABG Hematocrit 43 % (34.0-46.0); ABG Ionized Calcium 4.9 mg/dL (4.5-5.3); ABG Lactic Acid Whole Blood 1.2 mmol/L (0.5-1.6); ABG Oxygen Saturation 99.2 % (94-97); ABG PCO2 37 mmHg (35-45); ABG PH 7.41 (7.35-7.45); ABG PO2 282 mmHg (83-108); ABG Potassium Whole Blood 4.3 mmol/L (3.4-4.5); ABG Sodium Whole Blood 138 mmol/L (135-146); ABG TCO2 21 mmol/L (19-24)
[2023-09-17] MEDS: PAPAVERINE 360 MG in SODIUM CHLORIDE 0.9% 90 ML IV ONE (08:58)
[2023-09-17] MEDS: SODIUM CHLORIDE 0.9% 500 ML 500 ML with HEPARIN SODIUM,PORCINE (1 ML) 5,000 UNIT IV ONE (08:58)
[2023-09-17] MEDS: ceFAZolin 1,000 MG in SODIUM CHLORIDE 0.9% 1,000 ML IRRIGATION ONE (08:58)
[2023-09-17 09:46] LABS: ABG Base Excess -2.7 mmol/L; ABG Glucose Whole Blood 114 mg/dL (75-99); ABG HCO3 23 mmol/L (21-25); ABG Hematocrit 37 % (34.0-46.0); ABG Ionized Calcium 4.6 mg/dL (4.5-5.3); ABG Lactic Acid Whole Blood 0.9 mmol/L (0.5-1.6); ABG Oxygen Saturation >99.4 % (94-97); ABG PCO2 41 mmHg (35-45); ABG PH 7.36 (7.35-7.45); ABG PO2 319 mmHg (83-108); ABG Potassium Whole Blood 4.5 mmol/L (3.4-4.5); ABG Sodium Whole Blood 139 mmol/L (135-146)
[2023-09-17 10:20] LABS: ABG Base Excess -2.5 mmol/L; ABG Glucose Whole Blood 120 mg/dL (75-99); ABG HCO3 22 mmol/L (21-25); ABG Hematocrit 37 % (34.0-46.0); ABG Ionized Calcium 4.7 mg/dL (4.5-5.3); ABG Lactic Acid Whole Blood 0.9 mmol/L (0.5-1.6); ABG Oxygen Saturation >99.4 % (94-97); ABG PCO2 38 mmHg (35-45); ABG PH 7.38 (7.35-7.45); ABG PO2 305 mmHg (83-108); ABG Potassium Whole Blood 4.4 mmol/L (3.4-4.5); ABG Sodium Whole Blood 138 mmol/L (135-146)
--- NOTE | 2023-09-17 10:22 | P.ANPRN ---
Procedure Note - Anesthesia - BELKIS Intraop Pre Bypass BELKIS Intraop - Anesthesia Indication: cad Date of Procedure: 09/17/23 Pre-operative Diagnosis: cad Post-operative Diagnosis: s/p cabg, cad Surgeon: Lb Dee Left Ventricle: wnl Ejection Fraction: Normal Regional Wall Motion Abnormalities: None Left Ventricle Hypertrophy: No R. Ventricle Function: Normal Anatomy: Trileaflet Aortic Stenosis: None Aortic Regurgitation: None Mitral Stenosis: None Mitral Regurgitation: None Tricuspid Stenosis: None Tricuspid Regurgitation: None Pulmonic Stenosis: None Pulmonic Regurgitation: None R. Atrial Dilation: No R. Atrial PFO: No L. Atrial Dilation: No Aortic Dissection: No Aortic Calcification: None Plural Effusion: None
[2023-09-17 11:12] LABS: ABG Base Excess -0.2 mmol/L; ABG Glucose Whole Blood 119 mg/dL (75-99); ABG HCO3 24 mmol/L (21-25); ABG Hematocrit 39 % (34.0-46.0); ABG Ionized Calcium 4.5 mg/dL (4.5-5.3); ABG PCO2 37 mmHg (35-45); ABG PH 7.42 (7.35-7.45); ABG PO2 220 mmHg (83-108); ABG Potassium Whole Blood 4.1 mmol/L (3.4-4.5); ABG Sodium Whole Blood 139 mmol/L (135-146); ABG TCO2 22 mmol/L (19-24); Allen Test Performed? Yes
[2023-09-17] MEDS ORDERED: DEXTROSE 5% IN WATER 100 ML with AMIODARONE 150 MG IV PRN (11:26)
[2023-09-17] MEDS ORDERED: Magnesium Replacement Protocol 1 EACH MISC MISCELLANE PRN (11:26)
[2023-09-17] MEDS ORDERED: Potassium Replacement Protocol 1 EACH MISC MISCELLANE PRN (11:26)
[2023-09-17] MEDS ORDERED: DEXTROSE 50% SYRINGE 50 ML IVP PRN ×2 (11:26)
[2023-09-17] MEDS ORDERED: IPRATROPIUM-ALBUTEROL 3 ML NEB INHALATION PRN (11:26)
[2023-09-17] MEDS ORDERED: CALCIUM GLUCONATE IN NACL 2 GM in SALINE 1 100ML.BAG IVPB PRN (11:26)
[2023-09-17] MEDS ORDERED: Phosphorus Replacement Protoco 1 EACH MISC MISCELLANE PRN (11:26)
[2023-09-17] MEDS ORDERED: BENZOCAINE/MENTHOL LOZENG 1 EACH LOZENGE MUCOUS MEM PRN (11:26)
--- NOTE | 2023-09-17 11:37 | P.ANPRN ---
Procedure Note - Anesthesia - BELKIS Intraop Post Bypass BELKIS Intraop Post Bypass Procedure Performed: offpump cabg Left Ventricle: wnl Ejection Fraction: Normal Regional Wall Motion Abnormalities: None R. Ventricle Function: Normal Aortic Valve: Unchanged Mitral Valve: Unchanged Tricuspid: Unchanged Pulmonic: Unchanged Aortic Dissection: No
[2023-09-17] MEDS: IPRATROPIUM-ALBUTEROL 3 ML NEB INHALATION SCH ×2 (11:45→19:47)
--- NOTE | 2023-09-17 11:46 | P.OP ---
Date of Procedure: 09/17/23 Preoperative Diagnosis: 2v CAD Unstable Angina Postoperative Diagnosis: Same Procedure(s) Performed: 1. Off pump coronary artery bypass grafting x 1. Left internal thoracic artery (in-situ) to left anterior descending coronary artery. 2. Endoscopic left greater saphenous vein harvest 3. Left atrial appendage ligation using #35mm AtriClip 4. Graft flow measurements using the Medi-Stim flow meter system 5. Trans-esophageal echo Implants: #35mm AtriClip Anesthesia: GETA Surgeon: Lb Dee Manager Of Transportation #1: Gavin Reyes Manager Of Transportation #2: Abby Pereira Estimated Blood Loss (ml): 250 Pathology: none sent Condition: critical Disposition: ICU Indications for Procedure: This patient is a 58 year-old M with a history of non-compliance and CAD s/p multiple PCI to the RCA who presented with unstable angina and chest pain. 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 Despite his non-compliance with medications, we did recommend CABG given his overall low risk for surgery. We discussed his STS risk of morbidity and mortality and he was in agreement to proceed. Operative Findings: ELSY 1.5mm good conduit. LAD intra-myocardial middle 3rd. mid-distal 1.5mm good target. CARRILLO-LAD Flow 42ml/min, P.I. 2.7 RCA not amenable to bypass 2/2 stents. Proximal PDA 1.0mm at best. No a suitable bypass target. Description of Procedure: The patient underwent central line, arterial line, and [place] catheter placement in the pre-operative suite by the anesthesia team. The patient was then brought to the operating room and placed in the supine position. General anesthesia was induced and the patient was prepped from the chin to the ankles in the usual sterile fashion. A time-out was performed and antibiotics were given. A midline incision was made on the chest and carried down to bone. A median sternotomy was performed. Hemostasis on the bone was achieved using electrocautery. The left pleura was entered and the left internal thoracic artery was harvested in a skeletonized fashion. Simultaneously a physician music assistant harvested the left greater saphenous vein in an endoscopic fashion. The patient was systemically heparinized and the ELSY was transected and placed in a papaverine jacuzzi. A left sided chest tube was placed. The pericardium was incised in a reverse T-fashion and a pericardial cradle was created. The right pleura was opened. Stay sutures were placed. #35mm AtriClip was placed on the left atrial appendage. With ACT > 250, the octopus sabilizer was placed on the mid to distal LAD which was a good target. An ateriorotomy was made and 1.5mm shunt inserted. An end to side anastomosis between the ESLY and LAD was performed using a running 7-0 prolene. The shunt was removed prior to tieing down the suture. Next stay sutures were placed on the diaphragm near the IVC and oblique sinus. The inferior wall was exposed. The distal RCA was dissected out towards the proximal PDA after it was stabilized. The distal RCA was not a target secondary to stent. The proximal PDA was opened. This vessel was very small approximately 1.0mm. An attempt at passing a 1.0mm probe was made distally however this was not successful. The PDA was then closed using a 7-0 prolene suture as it was not suitable for bypass. Of note, there was minimal retrograde flow in the PDA from collaterals and no antegrade flow. The posterolateral branch was also examined but not suitable for bypass. Graft flow in the CARRILLO to LAD was measured and it was excellent. Protamine was given to reverse heparin. A 32F chest tube was placed in the mediastinum and 19F effie in the right pleura. Sternum was closed with pioneer cables and incisions were closed in layers. The patient was transported to CVICU in critical but stable condition. There were no prolonged periods of hypotension.
[2023-09-17 12:21] LABS: Glucose,Whole Blood 104 mg/dL (70-110)
[2023-09-17 12:25] LABS: Basophils # (A) 0.1 k/uL (0-0.2); Basophils % (A) 0 %; Eosinophils # (A) 0.2 k/uL (0-0.7); Eosinophils % (A) 2 %; HCT 40.2 % (39.0-53.0); Lymphocytes # (A) 1.2 k/uL (1.0-4.8); Lymphocytes % (A) 10 %; MCH 31.6 pg (25.0-35.0); MCHC 32.8 g/dL (31.0-37.0); MCV 96.3 fL (80.0-100.0); Mean Platelet Volume 9.3; Monocytes # (A) 0.3 k/uL (0-1.0); Monocytes % (A) 3 %; Neutrophils # (A) 10.1 k/uL (1.3-7.7); Neutrophils % (A) 85 %; Platelet Count 137 k/uL (150-450); RBC 4.18 m/uL (4.30-5.90); RDW 13.8 % (11.5-15.5); WBC 11.9 k/uL (3.8-10.6)
[2023-09-17] MEDS: AMIODARONE 360 MG in DEXTROSE 5% IN WATER 200 ML IV ONE (12:26)
[2023-09-17 12:27] LABS: Ionized Calcium 4.7 mg/dL (4.5-5.3)
[2023-09-17] MEDS: CLEVIDIPINE BUTYRATE 25 MG in EMPTY BAG 1 BAG IV SCH (12:31)
[2023-09-17] MEDS: NITROGLYCERIN-D5W PMX 50 MG in DEXTROSE/WATER 1 250ML.BAG IV SCH (12:32)
[2023-09-17] MEDS: LACTATED RINGERS 1,000 ML IV SCH (12:32)
[2023-09-17 12:36] LABS: ALT 26 U/L (4-49); AST 26 U/L (17-59); African American GFR (CKD) >90 (>60 ml/min/1.73 sqM); Albumin 3.4 g/dL (3.5-5.0); Alkaline Phosphatase 56 U/L (38-126); Anion Gap 4 mmol/L; Blood Urea Nitrogen 17 mg/dL (9-20); Calcium 8.1 mg/dL (8.4-10.2); Carbon Dioxide 24 mmol/L (22-30); Chloride 110 mmol/L (98-107); Glucose 116 mg/dL (74-99); Magnesium 2.3 mg/dL (1.6-2.3); Non-African American GFR(CKD) >90 (>60 ml/min/1.73 sqM); Potassium 3.9 mmol/L (3.5-5.1); Sodium 138 mmol/L (137-145); Total Bilirubin 0.5 mg/dL (0.2-1.3)
[2023-09-17 12:40] LABS: INR 1.2 (<1.2); Partial Thromboplastin Time 29.5 sec (22.0-30.0); Prothrombin Time 12.4 sec (10.0-12.5)
[2023-09-17 12:43] LABS: HGB 13.2 gm/dL (13.0-17.5)
[2023-09-17 12:52] LABS: ABG Base Excess 0.1 mmol/L; ABG HCO3 26 mmol/L (21-25); ABG Oxygen Saturation 100.3 % (94-97); ABG PCO2 45 mmHg (35-45); ABG PH 7.37 (7.35-7.45); ABG PO2 349 mmHg (83-108); ABG TCO2 27 mmol/L (19-24)
[2023-09-17 12:53] LABS: Glucose,Whole Blood 126 mg/dL (70-110)
[2023-09-17] MEDS: INSULIN REGULAR 100 UNIT in SODIUM CHLORIDE 0.9% 100 ML IV SCH (12:53)
[2023-09-17 12:55] LABS: Allen Test Performed? no
--- NOTE | 2023-09-17 13:37 | XR ---
EXAMINATION TYPE: XR chest 1V portable DATE OF EXAM: 09/17/2023 COMPARISON: 09/08/2023 INDICATION: Postop cardiac surgery TECHNIQUE: Single frontal view of the chest is obtained. FINDINGS: The heart size is normal. The pulmonary vasculature is normal. There is linear opacity to the left mid lung. Milder linear opacities at the right lung base. Correla te for atelectasis. Multiple lines and catheters are present. Bilateral chest tubes are present. Small left apical pneumo thorax may be present. [place]-Nataly catheter is present with tip in the main pulmonary artery. Mediastin al tube is present. Endotracheal tube tip is above the shekhar. Nasogastric tube tip is in the left up per quadrant of the abdomen. IMPRESSION: 1. Bilateral platelike atelectasis greater on the left. 2. Multiple lines and catheters. 3. Small left apical pneumothorax may be present. Follow-up is recommended.
[2023-09-17 14:14] LABS: Glucose,Whole Blood 134 mg/dL (70-110)
[2023-09-17] MEDS: DEXMEDETOMIDINE/0.9% NACL(PMX) 400 MCG in EMPTY BAG 1 BAG IV SCH (14:17)
[2023-09-17] MEDS: ALBUMIN HUMAN 5% 250 ML in EMPTY BAG 1 BAG IVPB PRN (14:18)
--- NOTE | 2023-09-17 14:21 | P.PN ---
Subjective Progress Note Date: 09/17/23 Hospital Course: Patient is a 58-year-old male with history of CAD status post stents, hyperten velasquez, hyperlipidemia, nicotine dependence, anxiety with depression and nightly cannabis use. He presented to the emergency department on 09/08/2023 secondary to a chief complaint of chest pain. He underwent evaluation in the emergency department. Vital signs upon arrival show blood pressure 160/90, heart rate 80, respiratory rate 18, temp 98.6 F, and SpO2 of 96% on room air. EKG was completed showing normal sinus rhythm at 68 bpm with prominent Q waves in inferior leads. Chest x-ray was negative for acute cardiopulmonary process. Completed and reviewed. CBC revealed leukocytosis with WBC count of 12.4. Coagulation profile normal findings. BMP unremarkable. Magnesium was 1.9. Liver profile unremarkable. Troponin was negative at less than 0.012. Patient was admitted under services with consultation to cardiology. Troponins trended overnight resulting at less than 0.012 x 3 draws. Lipid profile revealed elevated triglycerides of 164 and total cholesterol of 203.00. Hemoglobin A1c 5.5%. Patient went for a cardiac stress test which was positive for reversible ischemia. Cardiology then took patient for cardiac catheterization revealing 80% stenosis of mid LAD and 100% stenosis of RCA. Cardiology stated patient is not an appropriate candidate for PCI with stenting as he has shown evidence of in-stent restenosis and consulted cardiothoracic surgery for evaluation for b ypass. Echocardiogram completed showing a preserved EF of 50 to 55% with no significant valvular or structural abnormalities reported. Underwent CABG on 09/16. Currently recovering in medical ICU. Subjective: Patient seen and examined at bedside. No acute events overnight. Status post CABG. Pertinent positives and negatives as discussed above, a complete review of systems was performed and all other systems are negative. Vitals Signs Reviewed. General: Nontoxic, no distress, intubated and sedated Derm: Warm, dry, chest tubes in place Head: Atraumatic, normocephalic, symmetric Eyes: EOMI, no lid lag, anicteric sclera Mouth: No lip lesion, mucus membranes moist Cardiovascular: S1S2 reg, no murmur Lungs: CTA bilateral, no rhonchi, no rales, no accessory muscle use, intubated Abdominal: Soft, no appreciable organomegaly Ext: No gross muscle atrophy, no edema, no contractures Neuro: Sedated Psych: Unable to assess Data Reviewed Today: Pertinent Labs: WBC 11.9, hemoglobin 13.2, platelet 137, potassium 3.9, creatinine 0.67 Imaging: Chest x-ray independently interpreted, shows small left apical pneumothorax, status post CABG Assessment and Plan: Occlusive coronary artery disease status post CABG Chest pain, secondary to above CAD with previous stenting x7 Hypertension Hyperlipidemia Nicotine dependence Anxiety Hyperglycemia -Operative note reviewed, estimated blood loss to 50 cc -On insulin drip, monitor blood sugars very closely, patient does not have diabetes, she has show sliding scale insulin once patient is able to tolerate oral intake -Patient currently in medical ICU, intubated and sedated, pulmonology also following, wean off the mechanical ventilation, and sedation -PT/OT -Continue telemetry monitoring. -Continue aspirin 325 daily, Plavix 75 mg daily, metoprolol 12.5 mg twice daily -On IV amiodarone drip, nitroglycerin drip, Cleviprex -Pain control with oral Tylenol as needed, oral Oxy as needed -Recommend smoking cessation during this admission, patient declined nicotine patch Pulmonary nodule -CT chest was completed and radiology report reviewed showing a right upper lobe 4 mm pulmonary nodule. Patient high risk secondary to smoking history will need repeat CT chest in 12 months. 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267 mg In Empty Bag 1 bag @ 1 MG/HR 2 mls/hr IV .Q24H PENDING SALE TO [facility] Rx#:[id number] Lactated Ringers 1,000 ml 50 @ 50 mls/hr IV .Q20H PENDING SALE TO [facility] Rx#:[id number] Nitroglycerin-D5w Pmx 50 0.55 mg In Dextrose/Water 1 250ml.bag @ 5 MCG/MIN 1.5 mls/hr IV .Q24H PENDING SALE TO [facility] Rx#: [id number] Output: Chest Tube Drainage 70 Left Pleural 20 Medistinal x2 50 Urine 340 Estimated Blood Loss 300 Other: Voiding Method Indwelling Catheter # Voids 4 2 ABP, PAP, CO, CI - Last Documented Arterial Blood Pressure 118/60 Pulmonary Artery Pressure 26/14 Cardiac Output 4.6 Cardiac Index 2.9 - Labs CBC & Chem 7: 09/17/23 12:12 09/17/23 12:12 Labs: Abnormal Lab Results - Last 24 Hours (Table) 09/16/23 09/17/23 09/17/23 Range/Units 05:45 08:30 09:48 WBC (3.8-10.6) k/uL RBC (4.30-5.90) m/uL Plt Count (150-450) k/uL Neutrophils # (1.3-7.7) k/uL INR (<1.2) ABG pO2 282 H 319 H (83-108) mmHg ABG HCO3 (21-25) mmol/L ABG Total CO2 (19-24) mmol/L ABG O2 Saturation 99.2 H >99.4 H (94-97) % ABG Glucose 114 H (75-99) mg/dL Hemoglobin 12.0 L (13.0-17.5) gm/dL Chloride (98-107) mmol/L Glucose (74-99) mg/dL POC Glucose (mg/dL) (70-110) mg/dL Calcium (8.4-10.2) mg/dL Total Protein (6.3-8.2) g/dL Albumin (3.5-5.0) g/dL Arterial Blood Glucose 114 H (75-99) mg/dL Crossmatch See Detail 09/17/23 09/17/23 09/17/23 Range/Units 10:22 11:14 12:12 WBC 11.9 H (3.8-10.6) k/uL RBC 4.18 L (4.30-5.90) m/uL Plt Count 137 L (150-450) k/uL Neutrophils # 10.1 H (1.3-7.7) k/uL INR (<1.2) ABG pO2 305 H 220 H (83-108) mmHg ABG HCO3 (21-25) mmol/L ABG Total CO2 (19-24) mmol/L ABG O2 Saturation >99.4 H 99.0 H (94-97) % ABG Glucose 120 H 119 H (75-99) mg/dL Hemoglobin 12.0 L 12.7 L (13.0-17.5) gm/dL Chloride (98-107) mmol/L Glucose (74-99) mg/dL POC Glucose (mg/dL) (70-110) mg/dL Calcium (8.4-10.2) mg/dL Total Protein (6.3-8.2) g/dL Albumin (3.5-5.0) g/dL Arterial Blood Glucose 120 H 119 H (75-99) mg/dL Crossmatch 09/17/23 09/17/23 09/17/23 Range/Units 12:12 12:12 12:50 WBC (3.8-10.6) k/uL RBC (4.30-5.90) m/uL Plt Count (150-450) k/uL Neutrophils # (1.3-7.7) k/uL INR 1.2 H (<1.2) ABG pO2 349 H (83-108) mmHg ABG HCO3 26 H (21-25) mmol/L ABG Total CO2 27 H (19-24) mmol/L ABG O2 Saturation 100.3 H (94-97) % ABG Glucose (75-99) mg/dL Hemoglobin (13.0-17.5) gm/dL Chloride 110 H (98-107) mmol/L Glucose 116 H (74-99) mg/dL POC Glucose (mg/dL) (70-110) mg/dL Calcium 8.1 L (8.4-10.2) mg/dL Total Protein 5.0 L (6.3-8.2) g/dL Albumin 3.4 L (3.5-5.0) g/dL Arterial Blood Glucose (75-99) mg/dL Crossmatch 09/17/23 09/17/23 Range/Units 12:52 14:12 WBC (3.8-10.6) k/uL RBC (4.30-5.90) m/uL Plt Count (150-450) k/uL Neutrophils # (1.3-7.7) k/uL INR (<1.2) ABG pO2 (83-108) mmHg ABG HCO3 (21-25) mmol/L ABG Total CO2 (19-24) mmol/L ABG O2 Saturation (94-97) % ABG Glucose (75-99) mg/dL Hemoglobin (13.0-17.5) gm/dL Chloride (98-107) mmol/L Glucose (74-99) mg/dL POC Glucose (mg/dL) 126 H 134 H (70-110) mg/dL Calcium (8.4-10.2) mg/dL Total Protein (6.3-8.2) g/dL Albumin (3.5-5.0) g/dL Arterial Blood Glucose (75-99) mg/dL Crossmatch
[2023-09-17] MEDS: POTASSIUM BICARBONATE/CIT AC 20 MEQ TABLET.EFF PO ONE (14:30)
[2023-09-17] MEDS: ACETAMINOPHEN IV (For NPO) 1,000 MG in EMPTY BAG 1 BAG IVPB SCH (14:30)
[2023-09-17 15:04] LABS: Glucose,Whole Blood 127 mg/dL (70-110)
[2023-09-17] MEDS: HEPARIN SODIUM,PORCINE 5,000 UNIT/ML 1 ML VIAL SQ SCH (15:08)
--- NOTE | 2023-09-17 15:20 | P.PN ---
Subjective Progress Note Date: 09/17/23 58-year-old male patient known history of coronary artery disease with previous coronary stenting along with hypertension hyperlipidemia and previous history of tobacco marijuana smoking and previous history of heavy alcohol drinking along with history of PAD, carotid artery stenosis on the left and a strong family history of coronary disease. The patient presented with complaints of chest pain and the patient underwent a cardiac catheterization the patient was found to have 80% stenosis of the LAD in its mid segment, 100% ostial RCA, 100% in- stent restenosis of the RCA and right to left collaterals and filling of the PDA and PL branches. The patient is currently being worked up for coronary artery bypass surgery. The patient had negative troponins. Renal function is stable with a normal creatinine, normal electrolytes, normal CBC and the viral screen was negative and the chest x-ray showed no acute cardiopulmonary abnormalities and the patient further had a CT scan of the chest on 09/11/2023 that showed no acute thoracic process, 4 mm right upper lobe pulmonary nodule, moderate to regina re three-vessel coronary disease along with mild atherosclerotic disease involving the aorta and its branches and moderate atherosclerotic disease involving the bilateral renal arteries and mild background COPD. Echo done on 09/11/2023 showed preserved LV function along with segmental wall motion ab normalities involving the inferior and septal wall and the carotid Dopplers showed completely occluded left internal carotid artery without any flow. The patient is currently on room air oxygen with a pulse ox of 95%. The patient was seen by cardiothoracic surgery. He is not normal sinus rhythm. Plan for bypass surgery on 09/17/2023. 09/13/2023, the patient remains free of any chest pain. No specific complaints. The plan is to undergo coronary bypass surgery next week. The patient denies having any new complaints otherwise. Surgery will be done by Dr. Dee. Hemoglobin is at least 15.5 with a white cell count of 8.9. Electrolytes are within normal limits. 09/14/2023, no new complaints and the patient is still scheduled to undergo surgery on 09/17/2023. Ambulating. Incentive spirometer. No complaints. Cardiac rhythm remained sinus. No labs from today. Medications remain unc hanged. The patient is on room air oxygen. 09/15/2023, patient is on the 6 floor. Sitting up on the chair. Tolerating diet. No chest pain. Using incentive spirometer. Cardiac rhythm is sinus. No signs of any delirium tremens. Labs from 09/13/2023 were reviewed. No other labs for today. The patient is seen today September 16, 2023 in follow-up on the regular medical floor. He is awake and alert in no acute distress. Sitting up in bed. He denies any shortness of breath, cough or congestion. He is maintaining good O2 saturations in the 90s on room air. He is working well with his incentive spirometer. He denies any chest pain or palpitations. White count 9.0. Hemoglobin 16.2. Platelets 203. Sodium 137. Potassium 4.4. Bicarb 21. BUN 21. Creatinine 0.9. Glucose 90. He remains on heparin for DVT prophylaxis. The patient is seen today September 17, 2023 postoperatively in the intensive care unit. He did undergo an off-pump coronary artery bypass grafting x 1 utilizing a CARRILLO to the LAD with a left atrial appendage ligation. Postoperative day #0. He is intubated on the mechanical ventilator and assist-control mode at a rate of 16, tidal volume 450, FiO2 100% and a PEEP of 5. Arterial blood gases revealed a PaO2 of 349, P CO2 of 45 and a pH of 7.37. White count 11.9. Hemoglobin 13.2. Platelets 137. Sodium 138. Potassium 3.9. Bicarb 24. BUN 17. Creatinine 0.67. Glucose 116. AST 26. ALT 26. Chest x-ray reveals bilateral platelike atelectasis left greater than right. Small left apical pneumothorax may be present. He does have mediastinal and left chest tubes present. [place]-Nataly catheter present. Endotracheal and nasogastric tubes in place. He is currently sedated on propofol at 20 mcg/kg/min being transition to Precedex currently at 0.6 mcg/kg/h. He is on clevidipine at 2 mg an hour. Nitroglycerin drip at 5 mcg/min. Insulin drip at 1 unit/h. Amiodarone drip at 1 mg/min. Lactated Ringer's at 50 MLS per hour. Cardiac output is 3.5. Cardi ac index 2.2. PA pressures 27/11. CVP of 3. Objective - Vital Signs Vital signs: Vital Signs Temp 35.9 F L 09/17/23 15:00 Pulse 92 09/17/23 15:00 Resp 20 09/17/23 15:00 BP 144/78 09/17/23 06:18 Pulse Ox 99 09/17/23 15:00 FiO2 50 09/17/23 15:00 Intake & Output 09/16/23 09/17/23 09/17/23 18:59 06:59 18:59 Intake Total 100 269.847 Output Total 880 Balance 100 -610.153 Weight 58.967 kg Intake: IV 100 90 CO/CI 60 Pressure Bag 27 Intake, IV Titration 179.847 Amount Clevidipine Butyrate 25 50.000 mg In Empty Bag 1 bag @ 1 MG/HR 2 mls/hr IV .Q24H [facility] Rx#:[id number] Dexmedetomidine/0.9% NaCl 0.934 (Pmx) 400 mcg In Empty Bag 1 bag @ Titrate IV . Q0M [facility] Rx#:[id number] Lactated Ringers 1,000 ml 100 @ 50 mls/hr IV .Q20H [facility] Rx#:[id number] Nitroglycerin-D5w Pmx 50 0.55 mg In Dextrose/Water 1 250ml.bag @ 5 MCG/MIN 1.5 mls/hr IV .Q24H [facility] Rx#: [id number] propofoL 1,000 mg In 28.363 Empty Bag 1 bag @ Titrate IV .Q0M [facility] Rx#: [id number] Output: Chest Tube Drainage 115 Left Pleural 25 Medistinal x2 90 Urine 465 Estimated Blood Loss 300 Other: Voiding Method Indwelling Catheter # Voids 4 2 ABP, PAP, CO, CI - Last Documented Arterial Blood Pressure 147/63 Pulmonary Artery Pressure 27/11 Cardiac Output 7.1 Cardiac Index 4.4 - Exam GENERAL EXAM: Intubated, sedated, 58-year-old male, on the ventilator, in no apparent distress. HEAD: Normocephalic. EYES: Sluggish reaction of pupils, equal size. NOSE: Clear with pink turbinates. THROAT: Oral endotracheal and gastric tubes in place. No erythema or exudates. NECK: No masses, no JVD. Right IJ [place]-Nataly catheter in place. CHEST: Sternal dressing dry and intact. Mediastinal and left chest tubes in place. LUNGS: Equal air entry with crackles in the bilateral bases. CVS: S1 and S2 normal with no audible murmur, regular rhythm. ABDOMEN: No hepatosplenomegaly, no guarding or rigidity. SPINE: No scoliosis or deformity SKIN: No rashes CENTRAL NERVOUS SYSTEM: Sedated, tone is normal in all 4 extremities. EXTREMITIES: Right radial arterial line in place. Bilateral lower extremity Lul wraps in place. Sequential compression devices in place. Peripheral pulses are intact. - Labs CBC & Chem 7: 09/17/23 12:12 09/17/23 12:12 Labs: Abnormal Lab Results - Last 24 Hours (Table) 09/16/23 09/17/23 09/17/23 Range/Units 05:45 08:30 09:48 WBC (3.8-10.6) k/uL RBC (4.30-5.90) m/uL Plt Count (150-450) k/uL Neutrophils # (1.3-7.7) k/uL INR (<1.2) ABG pO2 282 H 319 H (83-108) mmHg ABG HCO3 (21-25) mmol/L ABG Total CO2 (19-24) mmol/L ABG O2 Saturation 99.2 H >99.4 H (94-97) % ABG Glucose 114 H (75-99) mg/dL Hemoglobin 12.0 L (13.0-17.5) gm/dL Chloride (98-107) mmol/L Glucose (74-99) mg/dL POC Glucose (mg/dL) (70-110) mg/dL Calcium (8.4-10.2) mg/dL Total Protein (6.3-8.2) g/dL Albumin (3.5-5.0) g/dL Arterial Blood Glucose 114 H (75-99) mg/dL Crossmatch See Detail 09/17/23 09/17/23 09/17/23 Range/Units 10:22 11:14 12:12 WBC 11.9 H (3.8-10.6) k/uL RBC 4.18 L (4.30-5.90) m/uL Plt Count 137 L (150-450) k/uL Neutrophils # 10.1 H (1.3-7.7) k/uL INR (<1.2) ABG pO2 305 H 220 H (83-108) mmHg ABG HCO3 (21-25) mmol/L ABG Total CO2 (19-24) mmol/L ABG O2 Saturation >99.4 H 99.0 H (94-97) % ABG Glucose 120 H 119 H (75-99) mg/dL Hemoglobin 12.0 L 12.7 L (13.0-17.5) gm/dL Chloride (98-107) mmol/L Glucose (74-99) mg/dL POC Glucose (mg/dL) (70-110) mg/dL Calcium (8.4-10.2) mg/dL Total Protein (6.3-8.2) g/dL Albumin (3.5-5.0) g/dL Arterial Blood Glucose 120 H 119 H (75-99) mg/dL Crossmatch 09/17/23 09/17/23 09/17/23 Range/Units 12:12 12:12 12:50 WBC (3.8-10.6) k/uL RBC (4.30-5.90) m/uL Plt Count (150-450) k/uL Neutrophils # (1.3-7.7) k/uL INR 1.2 H (<1.2) ABG pO2 349 H (83-108) mmHg ABG HCO3 26 H (21-25) mmol/L ABG Total CO2 27 H (19-24) mmol/L ABG O2 Saturation 100.3 H (94-97) % ABG Glucose (75-99) mg/dL Hemoglobin (13.0-17.5) gm/dL Chloride 110 H (98-107) mmol/L Glucose 116 H (74-99) mg/dL POC Glucose (mg/dL) (70-110) mg/dL Calcium 8.1 L (8.4-10.2) mg/dL Total Protein 5.0 L (6.3-8.2) g/dL Albumin 3.4 L (3.5-5.0) g/dL Arterial Blood Glucose (75-99) mg/dL Crossmatch 09/17/23 09/17/23 09/17/23 Range/Units 12:52 14:12 15:02 WBC (3.8-10.6) k/uL RBC (4.30-5.90) m/uL Plt Count (150-450) k/uL Neutrophils # (1.3-7.7) k/uL INR (<1.2) ABG pO2 (83-108) mmHg ABG HCO3 (21-25) mmol/L ABG Total CO2 (19-24) mmol/L ABG O2 Saturation (94-97) % ABG Glucose (75-99) mg/dL Hemoglobin (13.0-17.5) gm/dL Chloride (98-107) mmol/L Glucose (74-99) mg/dL POC Glucose (mg/dL) 126 H 134 H 127 H (70-110) mg/dL Calcium (8.4-10.2) mg/dL Total Protein (6.3-8.2) g/dL Albumin (3.5-5.0) g/dL Arterial Blood Glucose (75-99) mg/dL Crossmatch Assessment and Plan Assessment: Symptomatic multivessel coronary artery disease. Status post off-pump coronary artery bypass grafting using a CARRILLO to the LAD with left atrial appendage ligation. Postoperative day #0 Multiple myocardial infarctions with multiple stents Hypertension Hyperlipidemia COPD, mild with an FEV1 of 91% of predicted Chronic smoker Nightly marijuana use for anxiety Previous heavy EtOH use with admission earlier this year to [place], does admit to still drinking about 2 beers a month Peripheral arterial disease with claudication, right TRELL 0.71, left TRELL 0.64 Left internal carotid stenosis 100% with possible TIA in the past Medical noncompliance Family history of premature coronary artery disease Nonspecific right upper lobe pulmonary nodule measuring 4 mm in size Plan: The patient was seen and evaluated Chest x-ray, ABGs, labs and medications reviewed Increase ventilator respiratory rate to 16, decrease the FiO2 to 50% Plan for early extubation protocol as tolerated We will continue to follow I have personally seen and examined the patient, performed the documentation and the assessment and plan as written. Number of minutes spent on the visit: 15.
[2023-09-17 15:22] LABS: ABG Base Excess -0.7 mmol/L; ABG HCO3 25 mmol/L (21-25); ABG Oxygen Saturation 98.7 % (94-97); ABG PCO2 44 mmHg (35-45); ABG PH 7.36 (7.35-7.45); ABG PO2 114 mmHg (83-108); ABG TCO2 26 mmol/L (19-24)
[2023-09-17 15:23] LABS: Basophils # (A) 0.1 k/uL (0-0.2); Basophils % (A) 0 %; Eosinophils # (A) 0.1 k/uL (0-0.7); Eosinophils % (A) 1 %; HCT 37.5 % (39.0-53.0); HGB 12.6 gm/dL (13.0-17.5); Lymphocytes # (A) 1.3 k/uL (1.0-4.8); Lymphocytes % (A) 9 %; MCH 32.5 pg (25.0-35.0); MCHC 33.6 g/dL (31.0-37.0); MCV 96.9 fL (80.0-100.0); Mean Platelet Volume 9.8; Monocytes % (A) 6 %; Neutrophils # (A) 12.5 k/uL (1.3-7.7); Neutrophils % (A) 83 %; Platelet Count 139 k/uL (150-450); RBC 3.87 m/uL (4.30-5.90); RDW 13.9 % (11.5-15.5)
[2023-09-17 15:28] LABS: Allen Test Performed? no
[2023-09-17 16:07] LABS: Glucose,Whole Blood 131 mg/dL (70-110)
[2023-09-17] MEDS: KETOROLAC 15 MG/ML 1 ML VIAL IVP SCH (16:23)
[2023-09-17 17:05] LABS: Glucose,Whole Blood 128 mg/dL (70-110)
[2023-09-17 17:23] LABS: Basophils # (A) 0.1 k/uL (0-0.2); Basophils % (A) 0 %; Eosinophils # (A) 0.1 k/uL (0-0.7); Eosinophils % (A) 1 %; HCT 37.2 % (39.0-53.0); HGB 12.6 gm/dL (13.0-17.5); Lymphocytes # (A) 0.5 k/uL (1.0-4.8); Lymphocytes % (A) 4 %; MCH 32.5 pg (25.0-35.0); MCHC 33.8 g/dL (31.0-37.0); MCV 96.2 fL (80.0-100.0); Mean Platelet Volume 9.4; Monocytes # (A) 0.7 k/uL (0-1.0); Monocytes % (A) 5 %; Neutrophils # (A) 11.1 k/uL (1.3-7.7); Neutrophils % (A) 89 %; Platelet Count 132 k/uL (150-450); RBC 3.86 m/uL (4.30-5.90); RDW 13.9 % (11.5-15.5); WBC 12.6 k/uL (3.8-10.6)
[2023-09-17] MEDS: AMIODARONE 450 MG in DEXTROSE 5% IN WATER 250 ML IV SCH (17:49)
[2023-09-17 18:05] LABS: Glucose,Whole Blood 119 mg/dL (70-110)
[2023-09-17 19:00] LABS: Glucose,Whole Blood 122 mg/dL (70-110)
[2023-09-17 20:05] LABS: Glucose,Whole Blood 121 mg/dL (70-110)
[2023-09-17 20:57] LABS: Glucose,Whole Blood 135 mg/dL (70-110)
[2023-09-17 21:56] LABS: Glucose,Whole Blood 143 mg/dL (70-110)
[2023-09-17] MEDS: HYDROmorphone 1 MG/ML 1 ML SYRINGE IVP PRN (22:13)
[2023-09-17] MEDS: MUPIROCIN 2% OINT 22 GM TUBE NASAL SCH (22:13)
[2023-09-17] MEDS: ONDANSETRON 4 MG/2 ML VIAL IVP PRN (23:25)
[2023-09-17 23:48] LABS: Glucose,Whole Blood 122 mg/dL (70-110)
[2023-09-18 01:10] LABS: Glucose,Whole Blood 125 mg/dL (70-110)
[2023-09-18 01:59] LABS: Glucose,Whole Blood 126 mg/dL (70-110)
[2023-09-18 03:18] LABS: Basophils % (A) 0 %; Eosinophils % (A) 0 %; HCT 44.2 % (39.0-53.0); HGB 14.3 gm/dL (13.0-17.5); Lymphocytes # (A) 0.6 k/uL (1.0-4.8); Lymphocytes % (A) 3 %; MCH 31.3 pg (25.0-35.0); MCHC 32.2 g/dL (31.0-37.0); MCV 97.2 fL (80.0-100.0); Mean Platelet Volume 9.7; Monocytes # (A) 1.4 k/uL (0-1.0); Monocytes % (A) 8 %; Neutrophils % (A) 88 %; Platelet Count 146 k/uL (150-450); RBC 4.55 m/uL (4.30-5.90); RDW 13.8 % (11.5-15.5); WBC 18.2 k/uL (3.8-10.6)
[2023-09-18 03:18] LABS: Glucose,Whole Blood 139 mg/dL (70-110)
[2023-09-18 03:29] LABS: Ionized Calcium 4.8 mg/dL (4.5-5.3)
[2023-09-18 03:37] LABS: ALT 25 U/L (4-49); AST 29 U/L (17-59); African American GFR (CKD) >90 (>60 ml/min/1.73 sqM); Albumin 4.5 g/dL (3.5-5.0); Alkaline Phosphatase 64 U/L (38-126); Anion Gap 10 mmol/L; Blood Urea Nitrogen 12 mg/dL (9-20); Calcium 8.7 mg/dL (8.4-10.2); Carbon Dioxide 22 mmol/L (22-30); Chloride 104 mmol/L (98-107); Glucose 118 mg/dL (74-99); Non-African American GFR(CKD) >90 (>60 ml/min/1.73 sqM); Potassium 3.9 mmol/L (3.5-5.1); Sodium 136 mmol/L (137-145); Total Bilirubin 0.8 mg/dL (0.2-1.3); Total Protein 6.2 g/dL (6.3-8.2)
[2023-09-18] MEDS: POTASSIUM CHLORIDE ER 20 MEQ TAB.ER PO SCH (04:05)
[2023-09-18 04:38] LABS: Glucose,Whole Blood 129 mg/dL (70-110)
[2023-09-18] MEDS: POTASSIUM CHLORIDE ER 10 MEQ TAB.ER.PRT PO ONE (04:51)
[2023-09-18] MEDS: METOCLOPRAMIDE 5 MG/ML 2 ML VIAL IVP PRN (05:44)
[2023-09-18 06:16] LABS: Glucose,Whole Blood 124 mg/dL (70-110)
[2023-09-18 06:51] LABS: Glucose,Whole Blood 133 mg/dL (70-110)
--- NOTE | 2023-09-18 07:37 | P.PN ---
Subjective Progress Note Date: 09/18/23 PROGRESS NOTE The patient is a 58-year-old male with a known history of prior PCI who presented with persistent chest discomfort. He underwent cardiac catheterization and was found to have severe CAD with chronically occluded RCA and significant stenosis in the proximal LAD. He underwent off-pump CARRILLO to the LAD. The RCA was felt not to be a good target for percutaneous revascularization. He is awake, alert, extubated. He has chest soreness. His breathing is stable. He is in sinus mechanism. He has no significant drainage from the chest tube. His urinary output is stable. He is on no vasopressors. He is on IV amiodarone prophylactically. His echocardiogram preoperatively showed an ejection fraction of 50 to 55% with inferior wall hypokinesis Medications: Aspirin, IV amiodarone, Lipitor 40 mg daily, Plavix 75 mg daily, losartan 25 mg daily, metoprolol tartrate 25 mg twice a day. PHYSICAL EXAMINATION: Blood pressure 154/80 heart rate 80 LUNGS: Mild decreased breath sounds at the bases, [place]-Nataly catheter noted in the right IJ HEART: Regular rate and rhythm, S1, S2. No S3. No systolic murmur, rub noted ABDOMEN: Soft, nontender, no organomegaly EXTREMETIES: No edema LAB: Hemoglobin 14.3, BUN 12, creatinine 0.59. Potassium 3.9. IMPRESSION: 1. Status post CABG with single CARRILLO to the LAD 2. Chronically occluded RCA not felt to be a candidate for bypass 3. Prior history of noncompliance 4. Hyperlipidemia PLAN: 1. Continue present therapy 2. Increase physical activity 3. Adjust the dose of the losartan depending on blood pressure 4. Depending on his progress further recommendations will be made Objective - Vital Signs Vital signs: Vital Signs Temp 98.8 F 09/18/23 06:00 Pulse 82 09/18/23 07:00 Resp 17 09/18/23 07:00 BP 154/80 09/18/23 07:00 Pulse Ox 95 09/18/23 07:00 FiO2 50 09/17/23 15:00 Intake & Output 09/17/23 09/18/23 09/18/23 18:59 06:59 18:59 Intake Total 891.485 8410.735 Output Total 1610 2880 Balance -845.273 -1728.265 Weight 58.967 kg 56.8 kg Intake: IV 206 963 ACETAMINOPHEN IV (For NPO 100 ) 1,000 mg In Empty Bag 1 bag @ 400 mls/hr IVPB Q6H [facility] Rx#:[id number] CO/CI 140 120 Lactated Ringers 1,000 ml 550 @ 20 mls/hr IV .Q24H [facility] Rx#:[id number] Pressure Bag 63 93 ceFAZolin 2 gm In Sodium 100 Chloride 0.9% 50 ml @ 100 mls/hr IVPB ONCE [facility] Rx# :[id number] Intake, IV Titration 558.727 188.735 Amount Amiodarone 360 mg In 171.665 Dextrose 5% in Water 200 ml @ 1 MG/MIN 33.333 mls/ hr IV .Q6H [facility] Rx#: [id number] Clevidipine Butyrate 25 50.000 64.200 mg In Empty Bag 1 bag @ 1 MG/HR 2 mls/hr IV .Q24H [facility] Rx#:[id number] Dexmedetomidine/0.9% NaCl 0.934 23.884 (Pmx) 400 mcg In Empty Bag 1 bag @ Titrate IV . Q0M [facility] Rx#:[id number] Insulin Regular 100 unit 5.269 5.926 In Sodium Chloride 0.9% 100 ml @ Per Protocol IV .Q0M [facility] Rx#:[id number] Lactated Ringers 1,000 ml 300 50 @ 20 mls/hr IV .Q24H [facility] Rx#:[id number] Nitroglycerin-D5w Pmx 50 0.55 44.725 mg In Dextrose/Water 1 250ml.bag @ 5 MCG/MIN 1.5 mls/hr IV .Q24H [facility] Rx#: [id number] propofoL 1,000 mg In 30.309 Empty Bag 1 bag @ Titrate IV .Q0M [facility] Rx#: [id number] Output: Chest Tube Drainage 240 450 Left Pleural 50 230 Medistinal x2 190 220 Urine 1070 2430 Estimated Blood Loss 300 Other: Voiding Method Indwelling Catheter Indwelling Catheter ABP, PAP, CO, CI - Last Documented Arterial Blood Pressure 120/95 Pulmonary Artery Pressure 26/9 Cardiac Output 5.6 Cardiac Index 3.5 - Labs CBC & Chem 7: 09/18/23 02:43 09/18/23 02:43 Labs: Abnormal Lab Results - Last 24 Hours (Table) 09/16/23 09/17/23 09/17/23 Range/Units 05:45 08:30 09:48 WBC (3.8-10.6) k/uL RBC (4.30-5.90) m/uL Hgb (13.0-17.5) gm/dL Hct (39.0-53.0) % Plt Count (150-450) k/uL Neutrophils # (1.3-7.7) k/uL Lymphocytes # (1.0-4.8) k/uL Monocytes # (0-1.0) k/uL INR (<1.2) ABG pO2 282 H 319 H (83-108) mmHg ABG HCO3 (21-25) mmol/L ABG Total CO2 (19-24) mmol/L ABG O2 Saturation 99.2 H >99.4 H (94-97) % ABG Glucose 114 H (75-99) mg/dL Hemoglobin 12.0 L (13.0-17.5) gm/dL Sodium (137-145) mmol/L Chloride (98-107) mmol/L Creatinine (0.66-1.25) mg/dL Glucose (74-99) mg/dL POC Glucose (mg/dL) (70-110) mg/dL Calcium (8.4-10.2) mg/dL Total Protein (6.3-8.2) g/dL Albumin (3.5-5.0) g/dL Arterial Blood Glucose 114 H (75-99) mg/dL Crossmatch See Detail 09/17/23 09/17/23 09/17/23 Range/Units 10:22 11:14 12:12 WBC 11.9 H (3.8-10.6) k/uL RBC 4.18 L (4.30-5.90) m/uL Hgb (13.0-17.5) gm/dL Hct (39.0-53.0) % Plt Count 137 L (150-450) k/uL Neutrophils # 10.1 H (1.3-7.7) k/uL Lymphocytes # (1.0-4.8) k/uL Monocytes # (0-1.0) k/uL INR (<1.2) ABG pO2 305 H 220 H (83-108) mmHg ABG HCO3 (21-25) mmol/L ABG Total CO2 (19-24) mmol/L ABG O2 Saturation >99.4 H 99.0 H (94-97) % ABG Glucose 120 H 119 H (75-99) mg/dL Hemoglobin 12.0 L 12.7 L (13.0-17.5) gm/dL Sodium (137-145) mmol/L Chloride (98-107) mmol/L Creatinine (0.66-1.25) mg/dL Glucose (74-99) mg/dL POC Glucose (mg/dL) (70-110) mg/dL Calcium (8.4-10.2) mg/dL Total Protein (6.3-8.2) g/dL Albumin (3.5-5.0) g/dL Arterial Blood Glucose 120 H 119 H (75-99) mg/dL Crossmatch 09/17/23 09/17/23 09/17/23 Range/Units 12:12 12:12 12:50 WBC (3.8-10.6) k/uL RBC (4.30-5.90) m/uL Hgb (13.0-17.5) gm/dL Hct (39.0-53.0) % Plt Count (150-450) k/uL Neutrophils # (1.3-7.7) k/uL Lymphocytes # (1.0-4.8) k/uL Monocytes # (0-1.0) k/uL INR 1.2 H (<1.2) ABG pO2 349 H (83-108) mmHg ABG HCO3 26 H (21-25) mmol/L ABG Total CO2 27 H (19-24) mmol/L ABG O2 Saturation 100.3 H (94-97) % ABG Glucose (75-99) mg/dL Hemoglobin (13.0-17.5) gm/dL Sodium (137-145) mmol/L Chloride 110 H (98-107) mmol/L Creatinine (0.66-1.25) mg/dL Glucose 116 H (74-99) mg/dL POC Glucose (mg/dL) (70-110) mg/dL Calcium 8.1 L (8.4-10.2) mg/dL Total Protein 5.0 L (6.3-8.2) g/dL Albumin 3.4 L (3.5-5.0) g/dL Arterial Blood Glucose (75-99) mg/dL Crossmatch 09/17/23 09/17/23 09/17/23 Range/Units 12:52 14:12 14:25 WBC 15.0 H (3.8-10.6) k/uL RBC 3.87 L (4.30-5.90) m/uL Hgb 12.6 L (13.0-17.5) gm/dL Hct 37.5 L (39.0-53.0) % Plt Count 139 L (150-450) k/uL Neutrophils # 12.5 H (1.3-7.7) k/uL Lymphocytes # (1.0-4.8) k/uL Monocytes # (0-1.0) k/uL INR (<1.2) ABG pO2 (83-108) mmHg ABG HCO3 (21-25) mmol/L ABG Total CO2 (19-24) mmol/L ABG O2 Saturation (94-97) % ABG Glucose (75-99) mg/dL Hemoglobin (13.0-17.5) gm/dL Sodium (137-145) mmol/L Chloride (98-107) mmol/L Creatinine (0.66-1.25) mg/dL Glucose (74-99) mg/dL POC Glucose (mg/dL) 126 H 134 H (70-110) mg/dL Calcium (8.4-10.2) mg/dL Total Protein (6.3-8.2) g/dL Albumin (3.5-5.0) g/dL Arterial Blood Glucose (75-99) mg/dL Crossmatch 09/17/23 09/17/23 09/17/23 Range/Units 15:02 15:20 16:06 WBC (3.8-10.6) k/uL RBC (4.30-5.90) m/uL Hgb (13.0-17.5) gm/dL Hct (39.0-53.0) % Plt Count (150-450) k/uL Neutrophils # (1.3-7.7) k/uL Lymphocytes # (1.0-4.8) k/uL Monocytes # (0-1.0) k/uL INR (<1.2) ABG pO2 114 H (83-108) mmHg ABG HCO3 (21-25) mmol/L ABG Total CO2 26 H (19-24) mmol/L ABG O2 Saturation 98.7 H (94-97) % ABG Glucose (75-99) mg/dL Hemoglobin (13.0-17.5) gm/dL Sodium (137-145) mmol/L Chloride (98-107) mmol/L Creatinine (0.66-1.25) mg/dL Glucose (74-99) mg/dL POC Glucose (mg/dL) 127 H 131 H (70-110) mg/dL Calcium (8.4-10.2) mg/dL Total Protein (6.3-8.2) g/dL Albumin (3.5-5.0) g/dL Arterial Blood Glucose (75-99) mg/dL Crossmatch 09/17/23 09/17/23 09/17/23 Range/Units 17:03 17:05 18:04 WBC 12.6 H (3.8-10.6) k/uL RBC 3.86 L (4.30-5.90) m/uL Hgb 12.6 L (13.0-17.5) gm/dL Hct 37.2 L (39.0-53.0) % Plt Count 132 L (150-450) k/uL Neutrophils # 11.1 H (1.3-7.7) k/uL Lymphocytes # 0.5 L (1.0-4.8) k/uL Monocytes # (0-1.0) k/uL INR (<1.2) ABG pO2 (83-108) mmHg ABG HCO3 (21-25) mmol/L ABG Total CO2 (19-24) mmol/L ABG O2 Saturation (94-97) % ABG Glucose (75-99) mg/dL Hemoglobin (13.0-17.5) gm/dL Sodium (137-145) mmol/L Chloride (98-107) mmol/L Creatinine (0.66-1.25) mg/dL Glucose (74-99) mg/dL POC Glucose (mg/dL) 128 H 119 H (70-110) mg/dL Calcium (8.4-10.2) mg/dL Total Protein (6.3-8.2) g/dL Albumin (3.5-5.0) g/dL Arterial Blood Glucose (75-99) mg/dL Crossmatch 09/17/23 09/17/23 09/17/23 Range/Units 18:59 20:03 20:56 WBC (3.8-10.6) k/uL RBC (4.30-5.90) m/uL Hgb (13.0-17.5) gm/dL Hct (39.0-53.0) % Plt Count (150-450) k/uL Neutrophils # (1.3-7.7) k/uL Lymphocytes # (1.0-4.8) k/uL Monocytes # (0-1.0) k/uL INR (<1.2) ABG pO2 (83-108) mmHg ABG HCO3 (21-25) mmol/L ABG Total CO2 (19-24) mmol/L ABG O2 Saturation (94-97) % ABG Glucose (75-99) mg/dL Hemoglobin (13.0-17.5) gm/dL Sodium (137-145) mmol/L Chloride (98-107) mmol/L Creatinine (0.66-1.25) mg/dL Glucose (74-99) mg/dL POC Glucose (mg/dL) 122 H 121 H 135 H (70-110) mg/dL Calcium (8.4-10.2) mg/dL Total Protein (6.3-8.2) g/dL Albumin (3.5-5.0) g/dL Arterial Blood Glucose (75-99) mg/dL Crossmatch 09/17/23 09/17/23 09/18/23 Range/Units 21:55 23:47 01:08 WBC (3.8-10.6) k/uL RBC (4.30-5.90) m/uL Hgb (13.0-17.5) gm/dL Hct (39.0-53.0) % Plt Count (150-450) k/uL Neutrophils # (1.3-7.7) k/uL Lymphocytes # (1.0-4.8) k/uL Monocytes # (0-1.0) k/uL INR (<1.2) ABG pO2 (83-108) mmHg ABG HCO3 (21-25) mmol/L ABG Total CO2 (19-24) mmol/L ABG O2 Saturation (94-97) % ABG Glucose (75-99) mg/dL Hemoglobin (13.0-17.5) gm/dL Sodium (137-145) mmol/L Chloride (98-107) mmol/L Creatinine (0.66-1.25) mg/dL Glucose (74-99) mg/dL POC Glucose (mg/dL) 143 H 122 H 125 H (70-110) mg/dL Calcium (8.4-10.2) mg/dL Total Protein (6.3-8.2) g/dL Albumin (3.5-5.0) g/dL Arterial Blood Glucose (75-99) mg/dL Crossmatch 09/18/23 09/18/23 09/18/23 Range/Units 01:56 02:43 02:43 WBC 18.2 H (3.8-10.6) k/uL RBC (4.30-5.90) m/uL Hgb (13.0-17.5) gm/dL Hct (39.0-53.0) % Plt Count 146 L (150-450) k/uL Neutrophils # 16.0 H (1.3-7.7) k/uL Lymphocytes # 0.6 L (1.0-4.8) k/uL Monocytes # 1.4 H (0-1.0) k/uL INR (<1.2) ABG pO2 (83-108) mmHg ABG HCO3 (21-25) mmol/L ABG Total CO2 (19-24) mmol/L ABG O2 Saturation (94-97) % ABG Glucose (75-99) mg/dL Hemoglobin (13.0-17.5) gm/dL Sodium 136 L (137-145) mmol/L Chloride (98-107) mmol/L Creatinine 0.59 L (0.66-1.25) mg/dL Glucose 118 H (74-99) mg/dL POC Glucose (mg/dL) 126 H (70-110) mg/dL Calcium (8.4-10.2) mg/dL Total Protein 6.2 L (6.3-8.2) g/dL Albumin (3.5-5.0) g/dL Arterial Blood Glucose (75-99) mg/dL Crossmatch 09/18/23 09/18/23 09/18/23 Range/Units 03:17 04:36 06:14 WBC (3.8-10.6) k/uL RBC (4.30-5.90) m/uL Hgb (13.0-17.5) gm/dL Hct (39.0-53.0) % Plt Count (150-450) k/uL Neutrophils # (1.3-7.7) k/uL Lymphocytes # (1.0-4.8) k/uL Monocytes # (0-1.0) k/uL INR (<1.2) ABG pO2 (83-108) mmHg ABG HCO3 (21-25) mmol/L ABG Total CO2 (19-24) mmol/L ABG O2 Saturation (94-97) % ABG Glucose (75-99) mg/dL Hemoglobin (13.0-17.5) gm/dL Sodium (137-145) mmol/L Chloride (98-107) mmol/L Creatinine (0.66-1.25) mg/dL Glucose (74-99) mg/dL POC Glucose (mg/dL) 139 H 129 H 124 H (70-110) mg/dL Calcium (8.4-10.2) mg/dL Total Protein (6.3-8.2) g/dL Albumin (3.5-5.0) g/dL Arterial Blood Glucose (75-99) mg/dL Crossmatch 09/18/23 Range/Units 06:50 WBC (3.8-10.6) k/uL RBC (4.30-5.90) m/uL Hgb (13.0-17.5) gm/dL Hct (39.0-53.0) % Plt Count (150-450) k/uL Neutrophils # (1.3-7.7) k/uL Lymphocytes # (1.0-4.8) k/uL Monocytes # (0-1.0) k/uL INR (<1.2) ABG pO2 (83-108) mmHg ABG HCO3 (21-25) mmol/L ABG Total CO2 (19-24) mmol/L ABG O2 Saturation (94-97) % ABG Glucose (75-99) mg/dL Hemoglobin (13.0-17.5) gm/dL Sodium (137-145) mmol/L Chloride (98-107) mmol/L Creatinine (0.66-1.25) mg/dL Glucose (74-99) mg/dL POC Glucose (mg/dL) 133 H (70-110) mg/dL Calcium (8.4-10.2) mg/dL Total Protein (6.3-8.2) g/dL Albumin (3.5-5.0) g/dL Arterial Blood Glucose (75-99) mg/dL Crossmatch
[2023-09-18] MEDS: ASPIRIN 325 MG TAB PO SCH (07:42)
[2023-09-18] MEDS: ATORVASTATIN 40 MG TAB PO SCH (07:42)
[2023-09-18] MEDS: ACETAMINOPHEN TAB 500 MG TAB PO PRN (07:42)
[2023-09-18] MEDS: AMIODARONE 200 MG TAB PO SCH (07:42)
[2023-09-18] MEDS: CLOPIDOGREL 75 MG TAB PO SCH (07:43)
[2023-09-18] MEDS: PANTOPRAZOLE 40 MG/10 ML VIAL IVP SCH (07:43)
[2023-09-18] MEDS: METOPROLOL TARTRATE 25 MG TAB PO SCH (07:43)
--- NOTE | 2023-09-18 07:48 | XR ---
EXAMINATION TYPE: XR chest 1V portable DATE OF EXAM: 09/18/2023 HISTORY: Post Op CABG COMPARISON: NONE TECHNIQUE: Single view of the chest is submitted. FINDINGS: SG catheter, mediastinal drains and chest tubes are appropriately placed. NG tube and endotracheal tu bes have been removed. Post operative changes of CABG. No sizeable pneumothorax. Scattered Pleural-parenchymal opacities may reflect atelectasis. The heart is not enlarged. IMPRESSION: 1. Post operative changes of CABG.
--- NOTE | 2023-09-18 07:59 | P.PN ---
Subjective Progress Note Date: 09/18/23 Principal diagnosis: Coronary artery disease, unstable angina. History of multiple myocardial infarctions with multiple stents, hypertension, hyperlipidemia, current tobacco dependence with cessation upon admission to the hospital, nightly marijuana use for anxiety, previous heavy EtOH use with admission earlier this year to [place], does admit to still drinking about 2 beers a month, peripheral arterial disease with claudication, left internal carotid stenosis 100% with possible TIA in the past, medical noncompliance, family history of premature coronary artery disease POD #1 off pump coronary artery bypass grafting x 1, left internal thoracic artery (in-situ) to left anterior descending coronary artery, endoscopic left greater saphenous vein harvest, left atrial appendage ligation using #35mm AtriClip, graft flow measurements using the [employer]-Stim flow meter system, trans- esophageal echo The patient was seen and examined this morning sitting up in recliner in the intensive care unit in no acute distress. He was successfully extubated yesterday at 1530. Currently in sinus rhythm, hemodynamically stable although a bit hypertensive, remains on IV amiodarone for A-fib prophylaxis, Cleviprex as well as IV nitro. Currently on 2 L nasal cannula, able to achieve 1000 mL on his incentive spirometry. Patient does complain of expected postoperative pain, Dilaudid was added last night by Dr. Dee for better pain control. Right internal jugular Eureka/Cordis, mediastinal/left pleural chest tubes remain. No other new concerns. Objective - Vital Signs Vital signs: Vital Signs Temp 98.8 F 09/18/23 06:00 Pulse 82 09/18/23 07:00 Resp 17 09/18/23 07:00 BP 154/80 09/18/23 07:00 Pulse Ox 95 09/18/23 07:00 FiO2 50 09/17/23 15:00 Intake & Output 09/17/23 09/18/23 09/18/23 18:59 06:59 18:59 Intake Total 547.567 3259.735 Output Total 1610 2880 Balance -845.273 -1728.265 Weight 58.967 kg 56.8 kg Intake: IV 206 963 ACETAMINOPHEN IV (For NPO 100 ) 1,000 mg In Empty Bag 1 bag @ 400 mls/hr IVPB Q6H [facility] Rx#:[id number] CO/CI 140 120 Lactated Ringers 1,000 ml 550 @ 20 mls/hr IV .Q24H [facility] Rx#:[id number] Pressure Bag 63 93 ceFAZolin 2 gm In Sodium 100 Chloride 0.9% 50 ml @ 100 mls/hr IVPB ONCE [facility] Rx# :[id number] Intake, IV Titration 558.727 188.735 Amount Amiodarone 360 mg In 171.665 Dextrose 5% in Water 200 ml @ 1 MG/MIN 33.333 mls/ hr IV .Q6H [facility] Rx#: [id number] Clevidipine Butyrate 25 50.000 64.200 mg In Empty Bag 1 bag @ 1 MG/HR 2 mls/hr IV .Q24H [facility] Rx#:[id number] Dexmedetomidine/0.9% NaCl 0.934 23.884 (Pmx) 400 mcg In Empty Bag 1 bag @ Titrate IV . Q0M [facility] Rx#:[id number] Insulin Regular 100 unit 5.269 5.926 In Sodium Chloride 0.9% 100 ml @ Per Protocol IV .Q0M [facility] Rx#:[id number] Lactated Ringers 1,000 ml 300 50 @ 20 mls/hr IV .Q24H [facility] Rx#:[id number] Nitroglycerin-D5w Pmx 50 0.55 44.725 mg In Dextrose/Water 1 250ml.bag @ 5 MCG/MIN 1.5 mls/hr IV .Q24H [facility] Rx#: [id number] propofoL 1,000 mg In 30.309 Empty Bag 1 bag @ Titrate IV .Q0M [facility] Rx#: [id number] Output: Chest Tube Drainage 240 450 Left Pleural 50 230 Medistinal x2 190 220 Urine 1070 2430 Estimated Blood Loss 300 Other: Voiding Method Indwelling Catheter Indwelling Catheter ABP, PAP, CO, CI - Last Documented Arterial Blood Pressure 120/95 Pulmonary Artery Pressure 26/9 Cardiac Output 5.6 Cardiac Index 3.5 - Exam CONSTITUTIONAL: Appears comfortable, cooperative, no acute distress RESPIRATORY: Lungs sounds diminished bilaterally. Respirations even, nonlabored. Currently on 2 L nasal cannula with oxygen saturation 96%. Able to achieve 1000 mL on incentive spirometry. Strong cough. CARDIOVASCULAR: S1, S2 present. Regular rate and rhythm, sinus rhythm on telemetry. Sternum stable. Palpable peripheral pulses bilaterally. No edema present. No calf pain or tenderness noted. Heart hugger in place with patient demonstrating appropriate use. Antiembolism stockings, SCDs present. GASTROINTESTINAL: Abdomen soft, nontender, nondistended. Hypoactive bowel sounds present 4 quadrants. Tolerating clear liquids. Positive flatus GENITOURINARY: Juarez present draining clear, yellow urine. Output overnight 100-325 mL per hour INTEGUMENTARY: Skin is warm and dry with evidence of good perfusion. Anterior chest incision well approximated and covered with dry intact dressing. Left lower extremity EVH site well approximated without redness or drainage. NEUROLOGIC: Cranial nerves II through XII intact MUSKULOSKELETAL: Able to move all extremities, strength equal bilaterally, gait normal PSYCHIATRIC: Alert and oriented to person place and time, appropriate affect, intact judgment and insight INVASIVE LINES AND TUBES: Mediastinal/left pleural chest tubes present and connected to wall suction, no air leaks present. Mediastinal tube with 110 mL serosanguineous drainage overnight, 400 mL since surgery. Left pleural chest tube with 175 mL serosanguineous drainage overnight, 250 mL since surgery. Ventricular epicardial pacemaker wires present, grounded. Right internal jugular Eureka/Cordis present. Last CO/CI 5.6/3.5, PA 31/03, CVP 7. - Allied health notes Allied health notes reviewed: nursing - Labs CBC & Chem 7: 09/18/23 02:43 09/18/23 02:43 Labs: Abnormal Lab Results - Last 24 Hours (Table) 09/16/23 09/17/23 09/17/23 Range/Units 05:45 08:30 09:48 WBC (3.8-10.6) k/uL RBC (4.30-5.90) m/uL Hgb (13.0-17.5) gm/dL Hct (39.0-53.0) % Plt Count (150-450) k/uL Neutrophils # (1.3-7.7) k/uL Lymphocytes # (1.0-4.8) k/uL Monocytes # (0-1.0) k/uL INR (<1.2) ABG pO2 282 H 319 H (83-108) mmHg ABG HCO3 (21-25) mmol/L ABG Total CO2 (19-24) mmol/L ABG O2 Saturation 99.2 H >99.4 H (94-97) % ABG Glucose 114 H (75-99) mg/dL Hemoglobin 12.0 L (13.0-17.5) gm/dL Sodium (137-145) mmol/L Chloride (98-107) mmol/L Creatinine (0.66-1.25) mg/dL Glucose (74-99) mg/dL POC Glucose (mg/dL) (70-110) mg/dL Calcium (8.4-10.2) mg/dL Total Protein (6.3-8.2) g/dL Albumin (3.5-5.0) g/dL Arterial Blood Glucose 114 H (75-99) mg/dL Crossmatch See Detail 09/17/23 09/17/23 09/17/23 Range/Units 10:22 11:14 12:12 WBC 11.9 H (3.8-10.6) k/uL RBC 4.18 L (4.30-5.90) m/uL Hgb (13.0-17.5) gm/dL Hct (39.0-53.0) % Plt Count 137 L (150-450) k/uL Neutrophils # 10.1 H (1.3-7.7) k/uL Lymphocytes # (1.0-4.8) k/uL Monocytes # (0-1.0) k/uL INR (<1.2) ABG pO2 305 H 220 H (83-108) mmHg ABG HCO3 (21-25) mmol/L ABG Total CO2 (19-24) mmol/L ABG O2 Saturation >99.4 H 99.0 H (94-97) % ABG Glucose 120 H 119 H (75-99) mg/dL Hemoglobin 12.0 L 12.7 L (13.0-17.5) gm/dL Sodium (137-145) mmol/L Chloride (98-107) mmol/L Creatinine (0.66-1.25) mg/dL Glucose (74-99) mg/dL POC Glucose (mg/dL) (70-110) mg/dL Calcium (8.4-10.2) mg/dL Total Protein (6.3-8.2) g/dL Albumin (3.5-5.0) g/dL Arterial Blood Glucose 120 H 119 H (75-99) mg/dL Crossmatch 06/09/17/23 09/17/23 Range/Units 12:12 12:12 12:50 WBC (3.8-10.6) k/uL RBC (4.30-5.90) m/uL Hgb (13.0-17.5) gm/dL Hct (39.0-53.0) % Plt Count (150-450) k/uL Neutrophils # (1.3-7.7) k/uL Lymphocytes # (1.0-4.8) k/uL Monocytes # (0-1.0) k/uL INR 1.2 H (<1.2) ABG pO2 349 H (83-108) mmHg ABG HCO3 26 H (21-25) mmol/L ABG Total CO2 27 H (19-24) mmol/L ABG O2 Saturation 100.3 H (94-97) % ABG Glucose (75-99) mg/dL Hemoglobin (13.0-17.5) gm/dL Sodium (137-145) mmol/L Chloride 110 H (98-107) mmol/L Creatinine (0.66-1.25) mg/dL Glucose 116 H (74-99) mg/dL POC Glucose (mg/dL) (70-110) mg/dL Calcium 8.1 L (8.4-10.2) mg/dL Total Protein 5.0 L (6.3-8.2) g/dL Albumin 3.4 L (3.5-5.0) g/dL Arterial Blood Glucose (75-99) mg/dL Crossmatch 09/17/23 09/17/23 09/17/23 Range/Units 12:52 14:12 14:25 WBC 15.0 H (3.8-10.6) k/uL RBC 3.87 L (4.30-5.90) m/uL Hgb 12.6 L (13.0-17.5) gm/dL Hct 37.5 L (39.0-53.0) % Plt Count 139 L (150-450) k/uL Neutrophils # 12.5 H (1.3-7.7) k/uL Lymphocytes # (1.0-4.8) k/uL Monocytes # (0-1.0) k/uL INR (<1.2) ABG pO2 (83-108) mmHg ABG HCO3 (21-25) mmol/L ABG Total CO2 (19-24) mmol/L ABG O2 Saturation (94-97) % ABG Glucose (75-99) mg/dL Hemoglobin (13.0-17.5) gm/dL Sodium (137-145) mmol/L Chloride (98-107) mmol/L Creatinine (0.66-1.25) mg/dL Glucose (74-99) mg/dL POC Glucose (mg/dL) 126 H 134 H (70-110) mg/dL Calcium (8.4-10.2) mg/dL Total Protein (6.3-8.2) g/dL Albumin (3.5-5.0) g/dL Arterial Blood Glucose (75-99) mg/dL Crossmatch 09/17/23 09/17/23 09/17/23 Range/Units 15:02 15:20 16:06 WBC (3.8-10.6) k/uL RBC (4.30-5.90) m/uL Hgb (13.0-17.5) gm/dL Hct (39.0-53.0) % Plt Count (150-450) k/uL Neutrophils # (1.3-7.7) k/uL Lymphocytes # (1.0-4.8) k/uL Monocytes # (0-1.0) k/uL INR (<1.2) ABG pO2 114 H (83-108) mmHg ABG HCO3 (21-25) mmol/L ABG Total CO2 26 H (19-24) mmol/L ABG O2 Saturation 98.7 H (94-97) % ABG Glucose (75-99) mg/dL Hemoglobin (13.0-17.5) gm/dL Sodium (137-145) mmol/L Chloride (98-107) mmol/L Creatinine (0.66-1.25) mg/dL Glucose (74-99) mg/dL POC Glucose (mg/dL) 127 H 131 H (70-110) mg/dL Calcium (8.4-10.2) mg/dL Total Protein (6.3-8.2) g/dL Albumin (3.5-5.0) g/dL Arterial Blood Glucose (75-99) mg/dL Crossmatch 09/17/23 09/17/2324 Range/Units 17:03 17:05 18:04 WBC 12.6 H (3.8-10.6) k/uL RBC 3.86 L (4.30-5.90) m/uL Hgb 12.6 L (13.0-17.5) gm/dL Hct 37.2 L (39.0-53.0) % Plt Count 132 L (150-450) k/uL Neutrophils # 11.1 H (1.3-7.7) k/uL Lymphocytes # 0.5 L (1.0-4.8) k/uL Monocytes # (0-1.0) k/uL INR (<1.2) ABG pO2 (83-108) mmHg ABG HCO3 (21-25) mmol/L ABG Total CO2 (19-24) mmol/L ABG O2 Saturation (94-97) % ABG Glucose (75-99) mg/dL Hemoglobin (13.0-17.5) gm/dL Sodium (137-145) mmol/L Chloride (98-107) mmol/L Creatinine (0.66-1.25) mg/dL Glucose (74-99) mg/dL POC Glucose (mg/dL) 128 H 119 H (70-110) mg/dL Calcium (8.4-10.2) mg/dL Total Protein (6.3-8.2) g/dL Albumin (3.5-5.0) g/dL Arterial Blood Glucose (75-99) mg/dL Crossmatch 09/17/23 09/17/23 09/17/23 Range/Units 18:59 20:03 20:56 WBC (3.8-10.6) k/uL RBC (4.30-5.90) m/uL Hgb (13.0-17.5) gm/dL Hct (39.0-53.0) % Plt Count (150-450) k/uL Neutrophils # (1.3-7.7) k/uL Lymphocytes # (1.0-4.8) k/uL Monocytes # (0-1.0) k/uL INR (<1.2) ABG pO2 (83-108) mmHg ABG HCO3 (21-25) mmol/L ABG Total CO2 (19-24) mmol/L ABG O2 Saturation (94-97) % ABG Glucose (75-99) mg/dL Hemoglobin (13.0-17.5) gm/dL Sodium (137-145) mmol/L Chloride (98-107) mmol/L Creatinine (0.66-1.25) mg/dL Glucose (74-99) mg/dL POC Glucose (mg/dL) 122 H 121 H 135 H (70-110) mg/dL Calcium (8.4-10.2) mg/dL Total Protein (6.3-8.2) g/dL Albumin (3.5-5.0) g/dL Arterial Blood Glucose (75-99) mg/dL Crossmatch 09/17/23 09/17/23 09/18/23 Range/Units 21:55 23:47 01:08 WBC (3.8-10.6) k/uL RBC (4.30-5.90) m/uL Hgb (13.0-17.5) gm/dL Hct (39.0-53.0) % Plt Count (150-450) k/uL Neutrophils # (1.3-7.7) k/uL Lymphocytes # (1.0-4.8) k/uL Monocytes # (0-1.0) k/uL INR (<1.2) ABG pO2 (83-108) mmHg ABG HCO3 (21-25) mmol/L ABG Total CO2 (19-24) mmol/L ABG O2 Saturation (94-97) % ABG Glucose (75-99) mg/dL Hemoglobin (13.0-17.5) gm/dL Sodium (137-145) mmol/L Chloride (98-107) mmol/L Creatinine (0.66-1.25) mg/dL Glucose (74-99) mg/dL POC Glucose (mg/dL) 143 H 122 H 125 H (70-110) mg/dL Calcium (8.4-10.2) mg/dL Total Protein (6.3-8.2) g/dL Albumin (3.5-5.0) g/dL Arterial Blood Glucose (75-99) mg/dL Crossmatch 09/18/23 09/18/23 09/18/23 Range/Units 01:56 02:43 02:43 WBC 18.2 H (3.8-10.6) k/uL RBC (4.30-5.90) m/uL Hgb (13.0-17.5) gm/dL Hct (39.0-53.0) % Plt Count 146 L (150-450) k/uL Neutrophils # 16.0 H (1.3-7.7) k/uL Lymphocytes # 0.6 L (1.0-4.8) k/uL Monocytes # 1.4 H (0-1.0) k/uL INR (<1.2) ABG pO2 (83-108) mmHg ABG HCO3 (21-25) mmol/L ABG Total CO2 (19-24) mmol/L ABG O2 Saturation (94-97) % ABG Glucose (75-99) mg/dL Hemoglobin (13.0-17.5) gm/dL Sodium 136 L (137-145) mmol/L Chloride (98-107) mmol/L Creatinine 0.59 L (0.66-1.25) mg/dL Glucose 118 H (74-99) mg/dL POC Glucose (mg/dL) 126 H (70-110) mg/dL Calcium (8.4-10.2) mg/dL Total Protein 6.2 L (6.3-8.2) g/dL Albumin (3.5-5.0) g/dL Arterial Blood Glucose (75-99) mg/dL Crossmatch 09/18/23 09/18/23 09/18/23 Range/Units 03:17 04:36 06:14 WBC (3.8-10.6) k/uL RBC (4.30-5.90) m/uL Hgb (13.0-17.5) gm/dL Hct (39.0-53.0) % Plt Count (150-450) k/uL Neutrophils # (1.3-7.7) k/uL Lymphocytes # (1.0-4.8) k/uL Monocytes # (0-1.0) k/uL INR (<1.2) ABG pO2 (83-108) mmHg ABG HCO3 (21-25) mmol/L ABG Total CO2 (19-24) mmol/L ABG O2 Saturation (94-97) % ABG Glucose (75-99) mg/dL Hemoglobin (13.0-17.5) gm/dL Sodium (137-145) mmol/L Chloride (98-107) mmol/L Creatinine (0.66-1.25) mg/dL Glucose (74-99) mg/dL POC Glucose (mg/dL) 139 H 129 H 124 H (70-110) mg/dL Calcium (8.4-10.2) mg/dL Total Protein (6.3-8.2) g/dL Albumin (3.5-5.0) g/dL Arterial Blood Glucose (75-99) mg/dL Crossmatch 09/18/23 Range/Units 06:50 WBC (3.8-10.6) k/uL RBC (4.30-5.90) m/uL Hgb (13.0-17.5) gm/dL Hct (39.0-53.0) % Plt Count (150-450) k/uL Neutrophils # (1.3-7.7) k/uL Lymphocytes # (1.0-4.8) k/uL Monocytes # (0-1.0) k/uL INR (<1.2) ABG pO2 (83-108) mmHg ABG HCO3 (21-25) mmol/L ABG Total CO2 (19-24) mmol/L ABG O2 Saturation (94-97) % ABG Glucose (75-99) mg/dL Hemoglobin (13.0-17.5) gm/dL Sodium (137-145) mmol/L Chloride (98-107) mmol/L Creatinine (0.66-1.25) mg/dL Glucose (74-99) mg/dL POC Glucose (mg/dL) 133 H (70-110) mg/dL Calcium (8.4-10.2) mg/dL Total Protein (6.3-8.2) g/dL Albumin (3.5-5.0) g/dL Arterial Blood Glucose (75-99) mg/dL Crossmatch - Imaging and Cardiology Chest x-ray: report reviewed, image reviewed Assessment and Plan Assessment: Coronary artery disease, unstable angina, status post single-vessel off-pump CABG Multiple myocardial infarctions with multiple stents Hypertension Hyperlipidemia, cholesterol 203, LDL 123 Current tobacco dependence with cessation upon admission to the hospital, FEV1 91% of predicted Nightly marijuana use for anxiety Previous heavy EtOH use with admission earlier this year to [place], does admit to still drinking about 2 beers a month Peripheral arterial disease with claudication, right TRELL 0.71, left TRELL 0.64 Left internal carotid stenosis 100% with possible TIA in the past Medical noncompliance Family history of premature coronary artery disease Plan: Continue to maximize medical therapy with aspirin, statin, Plavix, beta-ingrid Will start losartan for afterload reduction, wean Cleviprex and nitro as able Continue amiodarone for A-fib prophylaxis, patient has had no A-fib at this point, will transition to oral Wean O2 as tolerated, encourage incentive spirometry use 10 times every hour while awake. Bronchodilators per pulmonology Increase activity, ambulate as tolerated. PT/OT/cardiac rehab consulted Will monitor daily labs and x-rays, electrolyte replacement per protocol GI/DVT prophylaxis Insulin management per internal medicine. Patient should remain on IV insulin for 48 hours, then may transition to subcutaneous per protocol Pain control with current medication regimen Will discontinue E[place]ka. Connect Cordis to continuous CVP monitoring Continue chest tubes for another 24 hours, monitor output Continue Juarez catheter for another 24 hours, continue to monitor and record strict accurate intake and output Daily weights More recommendations to follow
[2023-09-18] MEDS: LOSARTAN 25 MG TAB PO SCH (08:00)
[2023-09-18 08:01] LABS: Glucose,Whole Blood 131 mg/dL (70-110)
[2023-09-18 08:58] LABS: Glucose,Whole Blood 135 mg/dL (70-110)
[2023-09-18] MEDS ORDERED: amLODIPine 5 MG TAB PO SCH (09:00)
[2023-09-18] MEDS ORDERED: METOPROLOL TARTRATE 12.5 MG TAB PO SCH (09:00)
[2023-09-18] MEDS: bisacodyL 10 MG SUPP RECTAL PRN (09:02)
[2023-09-18 09:55] LABS: Glucose,Whole Blood 138 mg/dL (70-110)
--- NOTE | 2023-09-18 10:58 | P.PN ---
Subjective Progress Note Date: 09/18/23 Principal diagnosis: off-pump coronary artery bypass grafting x 1 utilizing a CARRILLO to the LAD with a left atrial appendage ligation. Postoperative day #1 58-year-old male patient known history of coronary artery disease with previous coronary stenting along with hypertension hyperlipidemia and previous history of tobacco marijuana smoking and previous history of heavy alcohol drinking along with history of PAD, carotid artery stenosis on the left and a strong family history of coronary disease. The patient presented with complaints of chest pain and the patient underwent a cardiac catheterization the patient was found to have 80% stenosis of the LAD in its mid segment, 100% ostial RCA, 100% in- stent restenosis of the RCA and right to left collaterals and filling of the PDA and PL branches. The patient is currently being worked up for coronary artery bypass surgery. The patient had negative troponins. Renal function is stable with a normal creatinine, normal electrolytes, normal CBC and the viral screen was negative and the chest x-ray showed no acute cardiopulmonary abnormalities and the patient further had a CT scan of the chest on 09/11/2023 that showed no acute thoracic process, 4 mm right upper lobe pulmonary nodule, moderate to severe three-vessel coronary disease along with mild atherosclerotic disease involving the aorta and its branches and moderate atherosclerotic disease involving the bilateral renal arteries and mild background COPD. Echo done on 09/11/2023 showed preserved LV function along with segmental wall motion abnormalities involving the inferior and septal wall and the carotid Dopplers showed completely occluded left internal carotid artery without any flow. The patient is currently on room air oxygen with a pulse ox of 95%. The patient was seen by cardiothoracic surgery. He is not normal sinus rhythm. Plan for bypass surgery on 09/17/2023. 09/13/2023, the patient remains free of any chest pain. No specific complaints. The plan is to undergo coronary bypass surgery next week. The patient denies having any new complaints otherwise. Surgery will be done by Dr. Dee. Hemoglobin is at least 15.5 with a white cell count of 8.9. Electrolytes are within normal limits. 09/14/2023, no new complaints and the patient is still scheduled to undergo surgery on 09/17/2023. Ambulating. Incentive spirometer. No complaints. Cardiac rhythm remained sinus. No labs from today. Medications remain unchanged. The patient is on room air oxygen. 09/15/2023, patient is on the 6 floor. Sitting up on the chair. Tolerating diet. No chest pain. Using incentive spirometer. Cardiac rhythm is sinus. No signs of any delirium tremens. Labs from 09/13/2023 were reviewed. No other labs for today. The patient is seen today September 16, 2023 in follow-up on the regular medical floor. He is awake and alert in no acute distress. Sitting up in bed. He denies any shortness of breath, cough or congestion. He is maintaining good O2 saturations in the 90s on room air. He is working well with his incentive spirometer. He denies any chest pain or palpitations. White count 9.0. Hemoglobin 16.2. Platelets 203. Sodium 137. Potassium 4.4. Bicarb 21. BUN 21. Creatinine 0.9. Glucose 90. He remains on heparin for DVT prophylaxis. The patient is seen today September 17, 2023 postoperatively in the intensive care unit. He did undergo an off-pump coronary artery bypass grafting x 1 utilizing a CARRILLO to the LAD with a left atrial appendage ligation. Postoperative day #0. He is intubated on the mechanical ventilator and assist-control mode at a rate of 16, tidal volume 450, FiO2 100% and a PEEP of 5. Arterial blood gases revealed a PaO2 of 349, P CO2 of 45 and a pH of 7.37. White count 11.9. Hemoglobin 13.2. Platelets 137. Sodium 138. Potassium 3.9. Bicarb 24. BUN 17. Creatinine 0.67. Glucose 116. AST 26. ALT 26. Chest x-ray reveals bilateral platelike atelectasis left greater than right. Small left apical pneumothorax may be present. He does have mediastinal and left chest tubes present. Bloxom-Nataly catheter present. Endotracheal and nasogastric tubes in place. He is currently sedated on propofol at 20 mcg/kg/min being transition to Precedex currently at 0.6 mcg/kg/h. He is on clevidipine at 2 mg an hour. Nitroglycerin drip at 5 mcg/min. Insulin drip at 1 unit/h. Amiodarone drip at 1 mg/min. Lactated Ringer's at 50 MLS per hour. Cardiac output is 3.5. Cardiac index 2.2. PA pressures 27/11. CVP of 3. Patient was reevaluated today on 09/18/2023, patient is POD #1 off pump coronary artery bypass grafting x 1, left internal thoracic artery (in-situ) to left anterior descending coronary artery, endoscopic left greater saphenous vein harvest, left atrial appendage ligation using #35mm AtriClip, graft flow measurements using the Lela-Stim flow meter system, trans-esophageal echo, patient was extubated yesterday at 1530. Patient is doing quite well, he is in sinus rhythm, hemodynamically stable, on IV amiodarone at 0.5 mg/min, he is on nitroglycerin drip as well as Cleviprex drip at 20 mg/h. Cardiac output is 6.9 cardiac index is 4.3, patient is receiving insulin at 1 unit/h. LR at 50 cc/h. Patient has mostly as expected postoperative pain, receiving Dilaudid as needed for pain control. Continues to have right IJ Bloxom-Nataly catheter, mediastinal/left pleural chest tubes, and again does not seem to be uncomfortableWBC count is 18.2 hemoglobin 14.3. Basic metabolic profile is normal with a relatively normal renal profile. Chest x-ray is mostly showing as expected postoperative changes no acute process otherwise as noted Objective - Vital Signs Vital signs: Vital Signs Temp 37.2 F L 09/18/23 08:15 Pulse 75 09/18/23 10:00 Resp 35 H 09/18/23 10:00 BP 135/78 09/18/23 10:00 Pulse Ox 93 L 09/18/23 10:00 FiO2 50 09/17/23 15:00 Intake & Output 09/17/23 09/18/23 09/18/23 18:59 06:59 18:59 Intake Total 568.600 0275.735 814.260 Output Total 1610 2880 200 Balance -845.273 -1728.265 614.260 Weight 58.967 kg 56.8 kg Intake: IV 206 963 202 ACETAMINOPHEN IV (For NPO 100 ) 1,000 mg In Empty Bag 1 bag @ 400 mls/hr IVPB Q6H [facility] Rx#:[id number] CO/CI 140 120 20 Lactated Ringers 1,000 ml 550 120 @ 20 mls/hr IV .Q24H [facility] Rx#:[id number] Pressure Bag 63 93 12 ceFAZolin 2 gm In Sodium 100 50 Chloride 0.9% 50 ml @ 100 mls/hr IVPB ONCE [facility] Rx# :[id number] Intake, IV Titration 558.727 188.735 252.260 Amount Amiodarone 360 mg In 171.665 Dextrose 5% in Water 200 ml @ 1 MG/MIN 33.333 mls/ hr IV .Q6H [facility] Rx#: [id number] Amiodarone 450 mg In 244.727 Dextrose 5% in Water 250 ml @ 0.5 MG/MIN 16.667 mls/hr IV .Q15H [facility] Rx#: [id number] Clevidipine Butyrate 25 50.000 64.200 7.533 mg In Empty Bag 1 bag @ 1 MG/HR 2 mls/hr IV .Q24H [facility] Rx#:[id number] Dexmedetomidine/0.9% NaCl 0.934 23.884 (Pmx) 400 mcg In Empty Bag 1 bag @ Titrate IV . Q0M [facility] Rx#:[id number] Insulin Regular 100 unit 5.269 5.926 In Sodium Chloride 0.9% 100 ml @ Per Protocol IV .Q0M [facility] Rx#:[id number] Lactated Ringers 1,000 ml 300 50 @ 20 mls/hr IV .Q24H [facility] Rx#:[id number] Nitroglycerin-D5w Pmx 50 0.55 44.725 mg In Dextrose/Water 1 250ml.bag @ 5 MCG/MIN 1.5 mls/hr IV .Q24H [facility] Rx#: [id number] propofoL 1,000 mg In 30.309 Empty Bag 1 bag @ Titrate IV .Q0M [facility] Rx#: [id number] Oral 360 Output: Chest Tube Drainage 240 450 40 Left Pleural 50 230 20 Medistinal x2 190 220 20 Urine 1070 2430 160 Estimated Blood Loss 300 Other: Voiding Method Indwelling Catheter Indwelling Catheter Indwelling Catheter ABP, PAP, CO, CI - Last Documented Arterial Blood Pressure 120/95 Pulmonary Artery Pressure 29/10 Cardiac Output 6.9 Cardiac Index 4.3 - Exam General:: Reveals a 58-year-old white male in no distress. RESPIRATORY: Diminished breath sounds at the bases no crackles rhonchi or wheezes. CARDIOVASCULAR: Distant S1-S2, no S3 gallop, no murmur. GASTROINTESTINAL: Abdomen is soft nontender no megaly no rebound no guarding. INTEGUMENTARY: Skin is warm and dry with evidence of good perfusion NEUROLOGIC: Alert and oriented x 3 no gross focal deficit MUSKULOSKELETAL: No deformities and no limitation range of motion PSYCHIATRIC: Normal mood and affect no mental status examination I - Labs CBC & Chem 7: 09/18/23 02:43 09/18/23 02:43 Labs: Abnormal Lab Results - Last 24 Hours (Table) 09/16/23 09/17/23 09/17/23 Range/Units 05:45 08:30 09:48 WBC (3.8-10.6) k/uL RBC (4.30-5.90) m/uL Hgb (13.0-17.5) gm/dL Hct (39.0-53.0) % Plt Count (150-450) k/uL Neutrophils # (1.3-7.7) k/uL Lymphocytes # (1.0-4.8) k/uL Monocytes # (0-1.0) k/uL INR (<1.2) ABG pO2 282 H 319 H (83-108) mmHg ABG HCO3 (21-25) mmol/L ABG Total CO2 (19-24) mmol/L ABG O2 Saturation 99.2 H >99.4 H (94-97) % ABG Glucose 114 H (75-99) mg/dL Hemoglobin 12.0 L (13.0-17.5) gm/dL Sodium (137-145) mmol/L Chloride (98-107) mmol/L Creatinine (0.66-1.25) mg/dL Glucose (74-99) mg/dL POC Glucose (mg/dL) (70-110) mg/dL Calcium (8.4-10.2) mg/dL Total Protein (6.3-8.2) g/dL Albumin (3.5-5.0) g/dL Arterial Blood Glucose 114 H (75-99) mg/dL Crossmatch See Detail 09/17/23 09/17/23 09/17/23 Range/Units 10:22 11:14 12:12 WBC 11.9 H (3.8-10.6) k/uL RBC 4.18 L (4.30-5.90) m/uL Hgb (13.0-17.5) gm/dL Hct (39.0-53.0) % Plt Count 137 L (150-450) k/uL Neutrophils # 10.1 H (1.3-7.7) k/uL Lymphocytes # (1.0-4.8) k/uL Monocytes # (0-1.0) k/uL INR (<1.2) ABG pO2 305 H 220 H (83-108) mmHg ABG HCO3 (21-25) mmol/L ABG Total CO2 (19-24) mmol/L ABG O2 Saturation >99.4 H 99.0 H (94-97) % ABG Glucose 120 H 119 H (75-99) mg/dL Hemoglobin 12.0 L 12.7 L (13.0-17.5) gm/dL Sodium (137-145) mmol/L Chloride (98-107) mmol/L Creatinine (0.66-1.25) mg/dL Glucose (74-99) mg/dL POC Glucose (mg/dL) (70-110) mg/dL Calcium (8.4-10.2) mg/dL Total Protein (6.3-8.2) g/dL Albumin (3.5-5.0) g/dL Arterial Blood Glucose 120 H 119 H (75-99) mg/dL Crossmatch 09/17/23 09/17/23 09/17/23 Range/Units 12:12 12:12 12:50 WBC (3.8-10.6) k/uL RBC (4.30-5.90) m/uL Hgb (13.0-17.5) gm/dL Hct (39.0-53.0) % Plt Count (150-450) k/uL Neutrophils # (1.3-7.7) k/uL Lymphocytes # (1.0-4.8) k/uL Monocytes # (0-1.0) k/uL INR 1.2 H (<1.2) ABG pO2 349 H (83-108) mmHg ABG HCO3 26 H (21-25) mmol/L ABG Total CO2 27 H (19-24) mmol/L ABG O2 Saturation 100.3 H (94-97) % ABG Glucose (75-99) mg/dL Hemoglobin (13.0-17.5) gm/dL Sodium (137-145) mmol/L Chloride 110 H (98-107) mmol/L Creatinine (0.66-1.25) mg/dL Glucose 116 H (74-99) mg/dL POC Glucose (mg/dL) (70-110) mg/dL Calcium 8.1 L (8.4-10.2) mg/dL Total Protein 5.0 L (6.3-8.2) g/dL Albumin 3.4 L (3.5-5.0) g/dL Arterial Blood Glucose (75-99) mg/dL Crossmatch 09/17/23 09/17/23 09/17/23 Range/Units 12:52 14:12 14:25 WBC 15.0 H (3.8-10.6) k/uL RBC 3.87 L (4.30-5.90) m/uL Hgb 12.6 L (13.0-17.5) gm/dL Hct 37.5 L (39.0-53.0) % Plt Count 139 L (150-450) k/uL Neutrophils # 12.5 H (1.3-7.7) k/uL Lymphocytes # (1.0-4.8) k/uL Monocytes # (0-1.0) k/uL INR (<1.2) ABG pO2 (83-108) mmHg ABG HCO3 (21-25) mmol/L ABG Total CO2 (19-24) mmol/L ABG O2 Saturation (94-97) % ABG Glucose (75-99) mg/dL Hemoglobin (13.0-17.5) gm/dL Sodium (137-145) mmol/L Chloride (98-107) mmol/L Creatinine (0.66-1.25) mg/dL Glucose (74-99) mg/dL POC Glucose (mg/dL) 126 H 134 H (70-110) mg/dL Calcium (8.4-10.2) mg/dL Total Protein (6.3-8.2) g/dL Albumin (3.5-5.0) g/dL Arterial Blood Glucose (75-99) mg/dL Crossmatch 09/17/23 09/17/23 09/17/23 Range/Units 15:02 15:20 16:06 WBC (3.8-10.6) k/uL RBC (4.30-5.90) m/uL Hgb (13.0-17.5) gm/dL Hct (39.0-53.0) % Plt Count (150-450) k/uL Neutrophils # (1.3-7.7) k/uL Lymphocytes # (1.0-4.8) k/uL Monocytes # (0-1.0) k/uL INR (<1.2) ABG pO2 114 H (83-108) mmHg ABG HCO3 (21-25) mmol/L ABG Total CO2 26 H (19-24) mmol/L ABG O2 Saturation 98.7 H (94-97) % ABG Glucose (75-99) mg/dL Hemoglobin (13.0-17.5) gm/dL Sodium (137-145) mmol/L Chloride (98-107) mmol/L Creatinine (0.66-1.25) mg/dL Glucose (74-99) mg/dL POC Glucose (mg/dL) 127 H 131 H (70-110) mg/dL Calcium (8.4-10.2) mg/dL Total Protein (6.3-8.2) g/dL Albumin (3.5-5.0) g/dL Arterial Blood Glucose (75-99) mg/dL Crossmatch 09/17/23 09/17/23 09/17/23 Range/Units 17:03 17:05 18:04 WBC 12.6 H (3.8-10.6) k/uL RBC 3.86 L (4.30-5.90) m/uL Hgb 12.6 L (13.0-17.5) gm/dL Hct 37.2 L (39.0-53.0) % Plt Count 132 L (150-450) k/uL Neutrophils # 11.1 H (1.3-7.7) k/uL Lymphocytes # 0.5 L (1.0-4.8) k/uL Monocytes # (0-1.0) k/uL INR (<1.2) ABG pO2 (83-108) mmHg ABG HCO3 (21-25) mmol/L ABG Total CO2 (19-24) mmol/L ABG O2 Saturation (94-97) % ABG Glucose (75-99) mg/dL Hemoglobin (13.0-17.5) gm/dL Sodium (137-145) mmol/L Chloride (98-107) mmol/L Creatinine (0.66-1.25) mg/dL Glucose (74-99) mg/dL POC Glucose (mg/dL) 128 H 119 H (70-110) mg/dL Calcium (8.4-10.2) mg/dL Total Protein (6.3-8.2) g/dL Albumin (3.5-5.0) g/dL Arterial Blood Glucose (75-99) mg/dL Crossmatch 09/17/23 09/17/23 09/17/23 Range/Units 18:59 20:03 20:56 WBC (3.8-10.6) k/uL RBC (4.30-5.90) m/uL Hgb (13.0-17.5) gm/dL Hct (39.0-53.0) % Plt Count (150-450) k/uL Neutrophils # (1.3-7.7) k/uL Lymphocytes # (1.0-4.8) k/uL Monocytes # (0-1.0) k/uL INR (<1.2) ABG pO2 (83-108) mmHg ABG HCO3 (21-25) mmol/L ABG Total CO2 (19-24) mmol/L ABG O2 Saturation (94-97) % ABG Glucose (75-99) mg/dL Hemoglobin (13.0-17.5) gm/dL Sodium (137-145) mmol/L Chloride (98-107) mmol/L Creatinine (0.66-1.25) mg/dL Glucose (74-99) mg/dL POC Glucose (mg/dL) 122 H 121 H 135 H (70-110) mg/dL Calcium (8.4-10.2) mg/dL Total Protein (6.3-8.2) g/dL Albumin (3.5-5.0) g/dL Arterial Blood Glucose (75-99) mg/dL Crossmatch 09/17/23 09/17/23 09/18/23 Range/Units 21:55 23:47 01:08 WBC (3.8-10.6) k/uL RBC (4.30-5.90) m/uL Hgb (13.0-17.5) gm/dL Hct (39.0-53.0) % Plt Count (150-450) k/uL Neutrophils # (1.3-7.7) k/uL Lymphocytes # (1.0-4.8) k/uL Monocytes # (0-1.0) k/uL INR (<1.2) ABG pO2 (83-108) mmHg ABG HCO3 (21-25) mmol/L ABG Total CO2 (19-24) mmol/L ABG O2 Saturation (94-97) % ABG Glucose (75-99) mg/dL Hemoglobin (13.0-17.5) gm/dL Sodium (137-145) mmol/L Chloride (98-107) mmol/L Creatinine (0.66-1.25) mg/dL Glucose (74-99) mg/dL POC Glucose (mg/dL) 143 H 122 H 125 H (70-110) mg/dL Calcium (8.4-10.2) mg/dL Total Protein (6.3-8.2) g/dL Albumin (3.5-5.0) g/dL Arterial Blood Glucose (75-99) mg/dL Crossmatch 09/18/23 09/18/23 09/18/23 Range/Units 01:56 02:43 02:43 WBC 18.2 H (3.8-10.6) k/uL RBC (4.30-5.90) m/uL Hgb (13.0-17.5) gm/dL Hct (39.0-53.0) % Plt Count 146 L (150-450) k/uL Neutrophils # 16.0 H (1.3-7.7) k/uL Lymphocytes # 0.6 L (1.0-4.8) k/uL Monocytes # 1.4 H (0-1.0) k/uL INR (<1.2) ABG pO2 (83-108) mmHg ABG HCO3 (21-25) mmol/L ABG Total CO2 (19-24) mmol/L ABG O2 Saturation (94-97) % ABG Glucose (75-99) mg/dL Hemoglobin (13.0-17.5) gm/dL Sodium 136 L (137-145) mmol/L Chloride (98-107) mmol/L Creatinine 0.59 L (0.66-1.25) mg/dL Glucose 118 H (74-99) mg/dL POC Glucose (mg/dL) 126 H (70-110) mg/dL Calcium (8.4-10.2) mg/dL Total Protein 6.2 L (6.3-8.2) g/dL Albumin (3.5-5.0) g/dL Arterial Blood Glucose (75-99) mg/dL Crossmatch 09/18/23 09/18/23 09/18/23 Range/Units 03:17 04:36 06:14 WBC (3.8-10.6) k/uL RBC (4.30-5.90) m/uL Hgb (13.0-17.5) gm/dL Hct (39.0-53.0) % Plt Count (150-450) k/uL Neutrophils # (1.3-7.7) k/uL Lymphocytes # (1.0-4.8) k/uL Monocytes # (0-1.0) k/uL INR (<1.2) ABG pO2 (83-108) mmHg ABG HCO3 (21-25) mmol/L ABG Total CO2 (19-24) mmol/L ABG O2 Saturation (94-97) % ABG Glucose (75-99) mg/dL Hemoglobin (13.0-17.5) gm/dL Sodium (137-145) mmol/L Chloride (98-107) mmol/L Creatinine (0.66-1.25) mg/dL Glucose (74-99) mg/dL POC Glucose (mg/dL) 139 H 129 H 124 H (70-110) mg/dL Calcium (8.4-10.2) mg/dL Total Protein (6.3-8.2) g/dL Albumin (3.5-5.0) g/dL Arterial Blood Glucose (75-99) mg/dL Crossmatch 09/18/23 09/18/23 09/18/23 Range/Units 06:50 07:59 08:56 WBC (3.8-10.6) k/uL RBC (4.30-5.90) m/uL Hgb (13.0-17.5) gm/dL Hct (39.0-53.0) % Plt Count (150-450) k/uL Neutrophils # (1.3-7.7) k/uL Lymphocytes # (1.0-4.8) k/uL Monocytes # (0-1.0) k/uL INR (<1.2) ABG pO2 (83-108) mmHg ABG HCO3 (21-25) mmol/L ABG Total CO2 (19-24) mmol/L ABG O2 Saturation (94-97) % ABG Glucose (75-99) mg/dL Hemoglobin (13.0-17.5) gm/dL Sodium (137-145) mmol/L Chloride (98-107) mmol/L Creatinine (0.66-1.25) mg/dL Glucose (74-99) mg/dL POC Glucose (mg/dL) 133 H 131 H 135 H (70-110) mg/dL Calcium (8.4-10.2) mg/dL Total Protein (6.3-8.2) g/dL Albumin (3.5-5.0) g/dL Arterial Blood Glucose (75-99) mg/dL Crossmatch 09/18/23 Range/Units 09:53 WBC (3.8-10.6) k/uL RBC (4.30-5.90) m/uL Hgb (13.0-17.5) gm/dL Hct (39.0-53.0) % Plt Count (150-450) k/uL Neutrophils # (1.3-7.7) k/uL Lymphocytes # (1.0-4.8) k/uL Monocytes # (0-1.0) k/uL INR (<1.2) ABG pO2 (83-108) mmHg ABG HCO3 (21-25) mmol/L ABG Total CO2 (19-24) mmol/L ABG O2 Saturation (94-97) % ABG Glucose (75-99) mg/dL Hemoglobin (13.0-17.5) gm/dL Sodium (137-145) mmol/L Chloride (98-107) mmol/L Creatinine (0.66-1.25) mg/dL Glucose (74-99) mg/dL POC Glucose (mg/dL) 138 H (70-110) mg/dL Calcium (8.4-10.2) mg/dL Total Protein (6.3-8.2) g/dL Albumin (3.5-5.0) g/dL Arterial Blood Glucose (75-99) mg/dL Crossmatch Assessment and Plan Assessment: Impression: Coronary artery disease/symptomatic with unstable angina, status post single- vessel off-pump CABG postoperative day #1 History of previous MO and multiple stents placement Generalized anxiety disorder Dyslipidemia Benign essential hypertension Peripheral vessel occlusive disease Medical noncompliance Family history of premature coronary artery disease Recommendation: Continue maximal medical therapy with beta-blockers Plavix statin and aspirin Eventually transition Cleviprex and arrange for oral blood pressure medication/ losartan Continue amiodarone for A-fib prophylaxis Increase activity and ambulate Continue incentive spirometry achieving almost 1000 cc/h trial Continue GI and DVT prophylaxis Continue insulin for diabetes management Continue to monitor I's and O's Monitor daily labs and daily x-rays of the chest Will continue to follow Time with Patient: Less than 30
[2023-09-18 11:02] LABS: Glucose,Whole Blood 115 mg/dL (70-110)
--- NOTE | 2023-09-18 11:27 | P.PN ---
Subjective Progress Note Date: 09/18/23 Hospital Course: Patient is a 58-year-old male with history of CAD status post stents, hyperten velasquez, hyperlipidemia, nicotine dependence, anxiety with depression and nightly cannabis use. He presented to the emergency department on 09/08/2023 secondary to a chief complaint of chest pain. He underwent evaluation in the emergency department. Vital signs upon arrival show blood pressure 160/90, heart rate 80, respiratory rate 18, temp 98.6 F, and SpO2 of 96% on room air. EKG was completed showing normal sinus rhythm at 68 bpm with prominent Q waves in inferior leads. Chest x-ray was negative for acute cardiopulmonary process. Completed and reviewed. CBC revealed leukocytosis with WBC count of 12.4. Coagulation profile normal findings. BMP unremarkable. Magnesium was 1.9. Liver profile unremarkable. Troponin was negative at less than 0.012. Patient was admitted under services with consultation to cardiology. Troponins trended overnight resulting at less than 0.012 x 3 draws. Lipid profile revealed elevated triglycerides of 164 and total cholesterol of 203.00. Hemoglobin A1c 5.5%. Patient went for a cardiac stress test which was positive for reversible ischemia. Cardiology then took patient for cardiac catheterization revealing 80% stenosis of mid LAD and 100% stenosis of RCA. Cardiology stated patient is not an appropriate candidate for PCI with stenting as he has shown evidence of in-stent restenosis and consulted cardiothoracic surgery for evaluation for b ypass. Echocardiogram completed showing a preserved EF of 50 to 55% with no significant valvular or structural abnormalities reported. Underwent CABG on 09/16. Currently recovering in medical ICU. Extubated. Subjective: Patient seen and examined at bedside. No acute events overnight. Extubated yesterday. Tolerating some oral intake. Making adequate urine. Juarez catheter and chest tubes in place Pertinent positives and negatives as discussed above, a complete review of systems was performed and all other systems are negative. Vitals Signs Reviewed. General: Nontoxic, no distress Derm: Warm, dry, chest tubes in place Head: Atraumatic, normocephalic, symmetric Eyes: EOMI, no lid lag, anicteric sclera Mouth: No lip lesion, mucus membranes moist Cardiovascular: S1S2 reg, no murmur Lungs: CTA bilateral, no rhonchi, no rales, no accessory muscle use, supplemental oxygen Abdominal: Soft, nontender, no appreciable organomegaly Ext: No gross muscle atrophy, no edema, no contractures Neuro: CN II to XII grossly normal Psych: Alert and oriented, cooperative Data Reviewed Today: Pertinent Labs: WBC 18.2, hemoglobin 14.3, platelet 146, sodium 136, potassium 3.9, creatinine 0.59, blood sugars ranging between 1 15-1 39 Imaging: Chest x-ray independently interpreted, no pneumothorax seen, interstitial opacities Assessment and Plan: Occlusive coronary artery disease status post CABG Chest pain, secondary to above CAD with previous stenting x7 Hypertension Hyperlipidemia Nicotine dependence Anxiety Hyperglycemia -Thoracic surgery note reviewed, started on losartan, wean Cleviprex and nitro, been amiodarone drip, started on oral amiodarone, continue chest tubes for another 24 hours, continue Juarez catheter for another 24 hours -On insulin drip, monitor blood sugars very closely, patient does not have diabetes, transition to sliding scale insulin once patient is able to tolerate oral intake -Pulmonology note reviewed, continue current therapy -Cardiology note reviewed, continue current therapy -PT/OT -Continue telemetry monitoring -Continue aspirin 325 daily, Plavix 75 mg daily, metoprolol 25, twice daily losartan 25 daily -Pain control with oral Tylenol as needed, oral Oxy as needed, monitor for sedation, also on 50 mg IV push Toradol every 6 hours scheduled -Recommend smoking cessation during this admission, patient declined nicotine patch Pulmonary nodule -CT chest was completed and radiology report reviewed showing a right upper lobe 4 mm pulmonary nodule. Patient high risk secondary to smoking history will need repeat CT chest in 12 months. 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 DVT ppx: Subcu heparin Code status: Full code Anticipated discharge place: Pending clinical course Anticipated discharge time: Pending clinical course Objective - Vital Signs Vital signs: Vital Signs Temp 37.2 F L 09/18/23 08:15 Pulse 72 09/18/23 11:00 Resp 20 09/18/23 11:00 BP 132/81 09/18/23 11:00 Pulse Ox 96 09/18/23 11:00 FiO2 50 09/17/23 15:00 Intake & Output 09/17/23 09/18/23 09/18/23 18:59 06:59 18:59 Intake Total 931.096 7574.735 839.426 Output Total 1610 2880 340 Balance -845.273 -1728.265 499.426 Weight 58.967 kg 56.8 kg Intake: IV 206 963 225 ACETAMINOPHEN IV (For NPO 100 ) 1,000 mg In Empty Bag 1 bag @ 400 mls/hr IVPB Q6H [facility] Rx#:[id number] CO/CI 140 120 20 Lactated Ringers 1,000 ml 550 140 @ 20 mls/hr IV .Q24H [facility] Rx#:[id number] Pressure Bag 63 93 15 ceFAZolin 2 gm In Sodium 100 50 Chloride 0.9% 50 ml @ 100 mls/hr IVPB ONCE ONE Rx# :[id number] Intake, IV Titration 558.727 188.735 254.426 Amount Amiodarone 360 mg In 171.665 Dextrose 5% in Water 200 ml @ 1 MG/MIN 33.333 mls/ hr IV .Q6H [facility] Rx#: [id number] Amiodarone 450 mg In 244.727 Dextrose 5% in Water 250 ml @ 0.5 MG/MIN 16.667 mls/hr IV .Q15H [facility] Rx#: [id number] Clevidipine Butyrate 25 50.000 64.200 9.699 mg In Empty Bag 1 bag @ 1 MG/HR 2 mls/hr IV .Q24H [facility] Rx#:[id number] Dexmedetomidine/0.9% NaCl 0.934 23.884 (Pmx) 400 mcg In Empty Bag 1 bag @ Titrate IV . Q0M [facility] Rx#:[id number] Insulin Regular 100 unit 5.269 5.926 In Sodium Chloride 0.9% 100 ml @ Per Protocol IV .Q0M [facility] Rx#:[id number] Lactated Ringers 1,000 ml 300 50 @ 20 mls/hr IV .Q24H [facility] Rx#:[id number] Nitroglycerin-D5w Pmx 50 0.55 44.725 mg In Dextrose/Water 1 250ml.bag @ 5 MCG/MIN 1.5 mls/hr IV .Q24H [facility] Rx#: [id number] propofoL 1,000 mg In 30.309 Empty Bag 1 bag @ Titrate IV .Q0M [facility] Rx#: [id number] Oral 360 Output: Chest Tube Drainage 240 450 150 Left Pleural 50 230 110 Medistinal x2 190 220 40 Urine 1070 2430 190 Estimated Blood Loss 300 Other: Voiding Method Indwelling Catheter Indwelling Catheter Indwelling Catheter ABP, PAP, CO, CI - Last Documented Arterial Blood Pressure 120/95 Pulmonary Artery Pressure 29/10 Cardiac Output 6.9 Cardiac Index 4.3 - Labs CBC & Chem 7: 09/18/23 02:43 09/18/23 02:43 Labs: Abnormal Lab Results - Last 24 Hours (Table) 09/16/23 09/17/23 09/17/23 Range/Units 05:45 11:14 12:12 WBC 11.9 H (3.8-10.6) k/uL RBC 4.18 L (4.30-5.90) m/uL Hgb (13.0-17.5) gm/dL Hct (39.0-53.0) % Plt Count 137 L (150-450) k/uL Neutrophils # 10.1 H (1.3-7.7) k/uL Lymphocytes # (1.0-4.8) k/uL Monocytes # (0-1.0) k/uL INR (<1.2) ABG pO2 220 H (83-108) mmHg ABG HCO3 (21-25) mmol/L ABG Total CO2 (19-24) mmol/L ABG O2 Saturation 99.0 H (94-97) % ABG Glucose 119 H (75-99) mg/dL Hemoglobin 12.7 L (13.0-17.5) gm/dL Sodium (137-145) mmol/L Chloride (98-107) mmol/L Creatinine (0.66-1.25) mg/dL Glucose (74-99) mg/dL POC Glucose (mg/dL) (70-110) mg/dL Calcium (8.4-10.2) mg/dL Total Protein (6.3-8.2) g/dL Albumin (3.5-5.0) g/dL Arterial Blood Glucose 119 H (75-99) mg/dL Crossmatch See Detail 09/17/23 09/17/23 09/17/23 Range/Units 12:12 12:12 12:50 WBC (3.8-10.6) k/uL RBC (4.30-5.90) m/uL Hgb (13.0-17.5) gm/dL Hct (39.0-53.0) % Plt Count (150-450) k/uL Neutrophils # (1.3-7.7) k/uL Lymphocytes # (1.0-4.8) k/uL Monocytes # (0-1.0) k/uL INR 1.2 H (<1.2) ABG pO2 349 H (83-108) mmHg ABG HCO3 26 H (21-25) mmol/L ABG Total CO2 27 H (19-24) mmol/L ABG O2 Saturation 100.3 H (94-97) % ABG Glucose (75-99) mg/dL Hemoglobin (13.0-17.5) gm/dL Sodium (137-145) mmol/L Chloride 110 H (98-107) mmol/L Creatinine (0.66-1.25) mg/dL Glucose 116 H (74-99) mg/dL POC Glucose (mg/dL) (70-110) mg/dL Calcium 8.1 L (8.4-10.2) mg/dL Total Protein 5.0 L (6.3-8.2) g/dL Albumin 3.4 L (3.5-5.0) g/dL Arterial Blood Glucose (75-99) mg/dL Crossmatch 09/17/23 09/17/23 09/17/23 Range/Units 12:52 14:12 14:25 WBC 15.0 H (3.8-10.6) k/uL RBC 3.87 L (4.30-5.90) m/uL Hgb 12.6 L (13.0-17.5) gm/dL Hct 37.5 L (39.0-53.0) % Plt Count 139 L (150-450) k/uL Neutrophils # 12.5 H (1.3-7.7) k/uL Lymphocytes # (1.0-4.8) k/uL Monocytes # (0-1.0) k/uL INR (<1.2) ABG pO2 (83-108) mmHg ABG HCO3 (21-25) mmol/L ABG Total CO2 (19-24) mmol/L ABG O2 Saturation (94-97) % ABG Glucose (75-99) mg/dL Hemoglobin (13.0-17.5) gm/dL Sodium (137-145) mmol/L Chloride (98-107) mmol/L Creatinine (0.66-1.25) mg/dL Glucose (74-99) mg/dL POC Glucose (mg/dL) 126 H 134 H (70-110) mg/dL Calcium (8.4-10.2) mg/dL Total Protein (6.3-8.2) g/dL Albumin (3.5-5.0) g/dL Arterial Blood Glucose (75-99) mg/dL Crossmatch 09/17/23 09/17/23 09/17/23 Range/Units 15:02 15:20 16:06 WBC (3.8-10.6) k/uL RBC (4.30-5.90) m/uL Hgb (13.0-17.5) gm/dL Hct (39.0-53.0) % Plt Count (150-450) k/uL Neutrophils # (1.3-7.7) k/uL Lymphocytes # (1.0-4.8) k/uL Monocytes # (0-1.0) k/uL INR (<1.2) ABG pO2 114 H (83-108) mmHg ABG HCO3 (21-25) mmol/L ABG Total CO2 26 H (19-24) mmol/L ABG O2 Saturation 98.7 H (94-97) % ABG Glucose (75-99) mg/dL Hemoglobin (13.0-17.5) gm/dL Sodium (137-145) mmol/L Chloride (98-107) mmol/L Creatinine (0.66-1.25) mg/dL Glucose (74-99) mg/dL POC Glucose (mg/dL) 127 H 131 H (70-110) mg/dL Calcium (8.4-10.2) mg/dL Total Protein (6.3-8.2) g/dL Albumin (3.5-5.0) g/dL Arterial Blood Glucose (75-99) mg/dL Crossmatch 09/17/23 09/17/23 09/17/23 Range/Units 17:03 17:05 18:04 WBC 12.6 H (3.8-10.6) k/uL RBC 3.86 L (4.30-5.90) m/uL Hgb 12.6 L (13.0-17.5) gm/dL Hct 37.2 L (39.0-53.0) % Plt Count 132 L (150-450) k/uL Neutrophils # 11.1 H (1.3-7.7) k/uL Lymphocytes # 0.5 L (1.0-4.8) k/uL Monocytes # (0-1.0) k/uL INR (<1.2) ABG pO2 (83-108) mmHg ABG HCO3 (21-25) mmol/L ABG Total CO2 (19-24) mmol/L ABG O2 Saturation (94-97) % ABG Glucose (75-99) mg/dL Hemoglobin (13.0-17.5) gm/dL Sodium (137-145) mmol/L Chloride (98-107) mmol/L Creatinine (0.66-1.25) mg/dL Glucose (74-99) mg/dL POC Glucose (mg/dL) 128 H 119 H (70-110) mg/dL Calcium (8.4-10.2) mg/dL Total Protein (6.3-8.2) g/dL Albumin (3.5-5.0) g/dL Arterial Blood Glucose (75-99) mg/dL Crossmatch 09/17/23 09/17/23 09/17/23 Range/Units 18:59 20:03 20:56 WBC (3.8-10.6) k/uL RBC (4.30-5.90) m/uL Hgb (13.0-17.5) gm/dL Hct (39.0-53.0) % Plt Count (150-450) k/uL Neutrophils # (1.3-7.7) k/uL Lymphocytes # (1.0-4.8) k/uL Monocytes # (0-1.0) k/uL INR (<1.2) ABG pO2 (83-108) mmHg ABG HCO3 (21-25) mmol/L ABG Total CO2 (19-24) mmol/L ABG O2 Saturation (94-97) % ABG Glucose (75-99) mg/dL Hemoglobin (13.0-17.5) gm/dL Sodium (137-145) mmol/L Chloride (98-107) mmol/L Creatinine (0.66-1.25) mg/dL Glucose (74-99) mg/dL POC Glucose (mg/dL) 122 H 121 H 135 H (70-110) mg/dL Calcium (8.4-10.2) mg/dL Total Protein (6.3-8.2) g/dL Albumin (3.5-5.0) g/dL Arterial Blood Glucose (75-99) mg/dL Crossmatch 09/17/23 09/17/23 09/18/23 Range/Units 21:55 23:47 01:08 WBC (3.8-10.6) k/uL RBC (4.30-5.90) m/uL Hgb (13.0-17.5) gm/dL Hct (39.0-53.0) % Plt Count (150-450) k/uL Neutrophils # (1.3-7.7) k/uL Lymphocytes # (1.0-4.8) k/uL Monocytes # (0-1.0) k/uL INR (<1.2) ABG pO2 (83-108) mmHg ABG HCO3 (21-25) mmol/L ABG Total CO2 (19-24) mmol/L ABG O2 Saturation (94-97) % ABG Glucose (75-99) mg/dL Hemoglobin (13.0-17.5) gm/dL Sodium (137-145) mmol/L Chloride (98-107) mmol/L Creatinine (0.66-1.25) mg/dL Glucose (74-99) mg/dL POC Glucose (mg/dL) 143 H 122 H 125 H (70-110) mg/dL Calcium (8.4-10.2) mg/dL Total Protein (6.3-8.2) g/dL Albumin (3.5-5.0) g/dL Arterial Blood Glucose (75-99) mg/dL Crossmatch 09/18/23 09/18/23 09/18/23 Range/Units 01:56 02:43 02:43 WBC 18.2 H (3.8-10.6) k/uL RBC (4.30-5.90) m/uL Hgb (13.0-17.5) gm/dL Hct (39.0-53.0) % Plt Count 146 L (150-450) k/uL Neutrophils # 16.0 H (1.3-7.7) k/uL Lymphocytes # 0.6 L (1.0-4.8) k/uL Monocytes # 1.4 H (0-1.0) k/uL INR (<1.2) ABG pO2 (83-108) mmHg ABG HCO3 (21-25) mmol/L ABG Total CO2 (19-24) mmol/L ABG O2 Saturation (94-97) % ABG Glucose (75-99) mg/dL Hemoglobin (13.0-17.5) gm/dL Sodium 136 L (137-145) mmol/L Chloride (98-107) mmol/L Creatinine 0.59 L (0.66-1.25) mg/dL Glucose 118 H (74-99) mg/dL POC Glucose (mg/dL) 126 H (70-110) mg/dL Calcium (8.4-10.2) mg/dL Total Protein 6.2 L (6.3-8.2) g/dL Albumin (3.5-5.0) g/dL Arterial Blood Glucose (75-99) mg/dL Crossmatch 09/18/23 09/18/23 09/18/23 Range/Units 03:17 04:36 06:14 WBC (3.8-10.6) k/uL RBC (4.30-5.90) m/uL Hgb (13.0-17.5) gm/dL Hct (39.0-53.0) % Plt Count (150-450) k/uL Neutrophils # (1.3-7.7) k/uL Lymphocytes # (1.0-4.8) k/uL Monocytes # (0-1.0) k/uL INR (<1.2) ABG pO2 (83-108) mmHg ABG HCO3 (21-25) mmol/L ABG Total CO2 (19-24) mmol/L ABG O2 Saturation (94-97) % ABG Glucose (75-99) mg/dL Hemoglobin (13.0-17.5) gm/dL Sodium (137-145) mmol/L Chloride (98-107) mmol/L Creatinine (0.66-1.25) mg/dL Glucose (74-99) mg/dL POC Glucose (mg/dL) 139 H 129 H 124 H (70-110) mg/dL Calcium (8.4-10.2) mg/dL Total Protein (6.3-8.2) g/dL Albumin (3.5-5.0) g/dL Arterial Blood Glucose (75-99) mg/dL Crossmatch 09/18/23 09/18/23 09/18/23 Range/Units 06:50 07:59 08:56 WBC (3.8-10.6) k/uL RBC (4.30-5.90) m/uL Hgb (13.0-17.5) gm/dL Hct (39.0-53.0) % Plt Count (150-450) k/uL Neutrophils # (1.3-7.7) k/uL Lymphocytes # (1.0-4.8) k/uL Monocytes # (0-1.0) k/uL INR (<1.2) ABG pO2 (83-108) mmHg ABG HCO3 (21-25) mmol/L ABG Total CO2 (19-24) mmol/L ABG O2 Saturation (94-97) % ABG Glucose (75-99) mg/dL Hemoglobin (13.0-17.5) gm/dL Sodium (137-145) mmol/L Chloride (98-107) mmol/L Creatinine (0.66-1.25) mg/dL Glucose (74-99) mg/dL POC Glucose (mg/dL) 133 H 131 H 135 H (70-110) mg/dL Calcium (8.4-10.2) mg/dL Total Protein (6.3-8.2) g/dL Albumin (3.5-5.0) g/dL Arterial Blood Glucose (75-99) mg/dL Crossmatch 09/18/23 09/18/23 Range/Units 09:53 11:01 WBC (3.8-10.6) k/uL RBC (4.30-5.90) m/uL Hgb (13.0-17.5) gm/dL Hct (39.0-53.0) % Plt Count (150-450) k/uL Neutrophils # (1.3-7.7) k/uL Lymphocytes # (1.0-4.8) k/uL Monocytes # (0-1.0) k/uL INR (<1.2) ABG pO2 (83-108) mmHg ABG HCO3 (21-25) mmol/L ABG Total CO2 (19-24) mmol/L ABG O2 Saturation (94-97) % ABG Glucose (75-99) mg/dL Hemoglobin (13.0-17.5) gm/dL Sodium (137-145) mmol/L Chloride (98-107) mmol/L Creatinine (0.66-1.25) mg/dL Glucose (74-99) mg/dL POC Glucose (mg/dL) 138 H 115 H (70-110) mg/dL Calcium (8.4-10.2) mg/dL Total Protein (6.3-8.2) g/dL Albumin (3.5-5.0) g/dL Arterial Blood Glucose (75-99) mg/dL Crossmatch
[2023-09-18 11:55] LABS: Glucose,Whole Blood 111 mg/dL (70-110)
[2023-09-18 13:08] LABS: Glucose,Whole Blood 128 mg/dL (70-110)
[2023-09-18 13:30] VITALS: BMI 21.4
[2023-09-18 14:09] LABS: Glucose,Whole Blood 137 mg/dL (70-110)
[2023-09-18 15:10] LABS: Glucose,Whole Blood 129 mg/dL (70-110)
[2023-09-18 16:46] LABS: Glucose,Whole Blood 118 mg/dL (70-110)
[2023-09-18] MEDS ORDERED: DEXTROSE 50% SYRINGE 50 ML IVP PRN ×2 (16:55)
[2023-09-18] MEDS: INSULIN ASPART (NovoLOG) 100 UNIT/ML VIAL SQ SCH (17:16)
[2023-09-18 20:25] LABS: Glucose,Whole Blood 119 mg/dL (70-110)
[2023-09-18] MEDS: SENNOSIDES-DOCUSATE SODIUM 1 EACH TAB PO SCH (21:27)
[2023-09-19 03:55] LABS: Basophils % (A) 0 %; Eosinophils % (A) 0 %; HCT 42.5 % (39.0-53.0); HGB 13.3 gm/dL (13.0-17.5); Lymphocytes # (A) 0.8 k/uL (1.0-4.8); Lymphocytes % (A) 4 %; MCH 31.3 pg (25.0-35.0); MCHC 31.4 g/dL (31.0-37.0); MCV 99.9 fL (80.0-100.0); Mean Platelet Volume 9.3; Monocytes # (A) 0.9 k/uL (0-1.0); Monocytes % (A) 5 %; Neutrophils # (A) 16.3 k/uL (1.3-7.7); Neutrophils % (A) 89 %; Platelet Count 144 k/uL (150-450); RBC 4.25 m/uL (4.30-5.90); RDW 13.9 % (11.5-15.5); WBC 18.3 k/uL (3.8-10.6)
[2023-09-19 04:24] LABS: Ionized Calcium 4.9 mg/dL (4.5-5.3)
[2023-09-19 04:55] LABS: ALT 20 U/L (4-49); AST 31 U/L (17-59); African American GFR (CKD) >90 (>60 ml/min/1.73 sqM); Albumin 4.1 g/dL (3.5-5.0); Alkaline Phosphatase 77 U/L (38-126); Anion Gap 8 mmol/L; Blood Urea Nitrogen 21 mg/dL (9-20); Calcium 8.9 mg/dL (8.4-10.2); Carbon Dioxide 25 mmol/L (22-30); Chloride 102 mmol/L (98-107); Glucose 112 mg/dL (74-99); Non-African American GFR(CKD) >90 (>60 ml/min/1.73 sqM); Potassium 4.7 mmol/L (3.5-5.1); Sodium 135 mmol/L (137-145); Total Protein 5.9 g/dL (6.3-8.2)
[2023-09-19] MEDS: PANTOPRAZOLE 40 MG TABLET PO SCH (07:19)
--- NOTE | 2023-09-19 07:31 | P.PN ---
Subjective Progress Note Date: 09/19/23 PROGRESS NOTE The patient is a 58-year-old male with a known history of prior PCI who presented with persistent chest discomfort. He underwent cardiac catheterization and was found to have severe CAD with chronically occluded RCA and significant stenosis in the proximal LAD. He underwent off-pump CARRILLO to the LAD. The RCA was felt not to be a good target for percutaneous revascularization. He is awake, alert, extubated. He has chest soreness. His breathing is stable. He is in sinus mechanism. He has no significant drainage from the chest tube. His urinary output is stable. He is on no vasopressors. He is on IV amiodarone prophylactically. His echocardiogram preoperatively showed an ejection fraction of 50 to 55% with inferior wall hypokinesis September 18: The patient is sitting up in the chair, complaining of incisional chest discomfort and had some diaphoresis. His breathing is relatively stable. He continues to be in sinus mechanism. He denies any dizziness or palpitations. He has no significant nausea. His urinary output is stable. There is no episodes of malignant arrhythmia. Hemodynamically he is stable on no vasopressors. Medications: Aspirin, Cordarone 400 mg twice a day, Lipitor 40 mg daily, Plavix 75 mg daily, losartan 50 mg daily, metoprolol tartrate 25 mg 3 times daily. PHYSICAL EXAMINATION: Blood pressure 125/70 heart rate 100, temperature 100 LUNGS: Mild decreased breath sounds at the bases, HEART: Regular rate and rhythm, S1, S2. No S3. No systolic murmur, rub noted ABDOMEN: Soft, nontender, no organomegaly EXTREMETIES: No edema LAB: Hemoglobin 13.3, BUN 21, creatinine 0.90. Potassium 4.7. IMPRESSION: 1. Status post CABG with single CARRILLO to the LAD 2. Chronically occluded RCA not felt to be a candidate for bypass 3. Prior history of noncompliance 4. Hyperlipidemia PLAN: 1. Continue present therapy 2. Increase physical activity 3. Continue incentive spirometry 4. Depending on his progress further recommendations will be made Objective - Vital Signs Vital signs: Vital Signs Temp 100 F H 09/19/23 04:00 Pulse 104 H 09/19/23 07:00 Resp 19 09/19/23 07:00 BP 125/76 09/19/23 07:00 Pulse Ox 88 L 09/19/23 07:00 FiO2 50 06/18/24 15:00 Intake & Output 09/18/23 09/19/23 09/19/23 18:59 06:59 18:59 Intake Total 1075.727 276 23 Output Total 565 565 90 Balance 510.727 -289 -67 Weight 56.8 kg 60.1 kg Intake: IV 386 276 23 CO/CI 20 Lactated Ringers 1,000 ml 280 240 20 @ 20 mls/hr IV .Q24H [facility] Rx#:[id number] Pressure Bag 36 36 3 ceFAZolin 2 gm In Sodium 50 Chloride 0.9% 50 ml @ 100 mls/hr IVPB ONCE ONE Rx# :[id number] Intake, IV Titration 329.727 Amount Amiodarone 450 mg In 244.727 Dextrose 5% in Water 250 ml @ 0.5 MG/MIN 16.667 mls/hr IV .Q15H [facility] Rx#: [id number] Clevidipine Butyrate 25 9.699 mg In Empty Bag 1 bag @ 1 MG/HR 2 mls/hr IV .Q24H [facility] Rx#:[id number] Insulin Regular 100 unit 12.751 In Sodium Chloride 0.9% 100 ml @ Per Protocol IV .Q0M [facility] Rx#:[id number] Nitroglycerin-D5w Pmx 50 62.55 mg In Dextrose/Water 1 250ml.bag @ 5 MCG/MIN 1.5 mls/hr IV .Q24H [facility] Rx#: [id number] Oral 360 Output: Chest Tube Drainage 200 220 50 Left Pleural 145 130 30 Medistinal x2 55 90 20 Urine 365 345 40 Other: Voiding Method Indwelling Catheter Indwelling Catheter # Bowel Movements 1 ABP, PAP, CO, CI - Last Documented Arterial Blood Pressure 120/95 Pulmonary Artery Pressure 29/10 Cardiac Output 6.9 Cardiac Index 4.3 - Labs CBC & Chem 7: 09/19/23 03:28 09/19/23 03:28 Labs: Abnormal Lab Results - Last 24 Hours (Table) 09/18/23 09/18/23 09/18/23 Range/Units 07:59 08:56 09:53 WBC (3.8-10.6) k/uL RBC (4.30-5.90) m/uL Plt Count (150-450) k/uL Neutrophils # (1.3-7.7) k/uL Lymphocytes # (1.0-4.8) k/uL Sodium (137-145) mmol/L BUN (9-20) mg/dL Glucose (74-99) mg/dL POC Glucose (mg/dL) 131 H 135 H 138 H (70-110) mg/dL Total Protein (6.3-8.2) g/dL 09/18/23 09/18/23 09/18/23 Range/Units 11:01 11:54 13:07 WBC (3.8-10.6) k/uL RBC (4.30-5.90) m/uL Plt Count (150-450) k/uL Neutrophils # (1.3-7.7) k/uL Lymphocytes # (1.0-4.8) k/uL Sodium (137-145) mmol/L BUN (9-20) mg/dL Glucose (74-99) mg/dL POC Glucose (mg/dL) 115 H 111 H 128 H (70-110) mg/dL Total Protein (6.3-8.2) g/dL 09/18/23 09/18/23 09/18/23 Range/Units 14:07 15:08 16:45 WBC (3.8-10.6) k/uL RBC (4.30-5.90) m/uL Plt Count (150-450) k/uL Neutrophils # (1.3-7.7) k/uL Lymphocytes # (1.0-4.8) k/uL Sodium (137-145) mmol/L BUN (9-20) mg/dL Glucose (74-99) mg/dL POC Glucose (mg/dL) 137 H 129 H 118 H (70-110) mg/dL Total Protein (6.3-8.2) g/dL 09/18/23 09/19/23 09/19/23 Range/Units 20:23 03:28 03:28 WBC 18.3 H (3.8-10.6) k/uL RBC 4.25 L (4.30-5.90) m/uL Plt Count 144 L (150-450) k/uL Neutrophils # 16.3 H (1.3-7.7) k/uL Lymphocytes # 0.8 L (1.0-4.8) k/uL Sodium 135 L (137-145) mmol/L BUN 21 H (9-20) mg/dL Glucose 112 H (74-99) mg/dL POC Glucose (mg/dL) 119 H (70-110) mg/dL Total Protein 5.9 L (6.3-8.2) g/dL
--- NOTE | 2023-09-19 07:55 | XR ---
EXAMINATION TYPE: XR chest 1V portable DATE OF EXAM: 09/19/2023 HISTORY: Post Operative Cardiac Surgery COMPARISON: 09/18/2023 TECHNIQUE: Single view of the chest is submitted. FINDINGS: [place]ataly catheter has been removed. Right IJ sheath is noted in place. Left-sided chest tube and a m ediastinal drain are noted. Left atrial clip is in place. Sternotomy wires are identified. Scattered pleural-parenchymal opacities appear unchanged. No evidence for pneumothorax. The heart is stable. Hilar and mediastinal structures are within normal limits. Degenerative changes are seen of the dorsal spine. IMPRESSION: 1. Post operative cardiac surgery changes as noted.
[2023-09-19] MEDS: LOSARTAN 50 MG TAB PO SCH (08:04)
[2023-09-19] MEDS: METOPROLOL TARTRATE 25 MG TAB PO SCH (08:04)
--- NOTE | 2023-09-19 08:07 | P.PN ---
Subjective Progress Note Date: 09/19/23 Principal diagnosis: Coronary artery disease, unstable angina. History of multiple myocardial infarctions with multiple stents, hypertension, hyperlipidemia, current tobacco dependence with cessation upon admission to the hospital, nightly marijuana use for anxiety, previous heavy EtOH use with admission earlier this year to [place], does admit to still drinking about 2 beers a month, peripheral arterial disease with claudication, left internal carotid stenosis 100% with possible TIA in the past, medical noncompliance, family history of premature coronary artery disease POD #2 off pump coronary artery bypass grafting x 1, left internal thoracic artery (in-situ) to left anterior descending coronary artery, endoscopic left greater saphenous vein harvest, left atrial appendage ligation using #35mm AtriClip, graft flow measurements using the [employer] ([employer])-Stim flow meter system, trans- esophageal echo The patient was seen and examined this morning sitting up in recliner in the intensive care unit in no acute distress. He does complain of postsurgical pain which has not been controlled by the oxycodone last night, will receive Dilaudid. Currently in sinus rhythm, hemodynamically stable. Currently on 2 L nasal cannula, able to achieve 750-1000 mL on his incentive spirometry. Right internal jugular cordis, mediastinal/left pleural chest tubes remain. No other new concerns. Objective - Vital Signs Vital signs: Vital Signs Temp 100 F H 09/19/23 04:00 Pulse 104 H 09/19/23 07:00 Resp 19 09/19/23 07:00 BP 125/76 09/19/23 07:00 Pulse Ox 88 L 09/19/23 07:00 FiO2 50 09/17/23 15:00 Intake & Output 09/18/23 09/19/23 09/19/23 18:59 06:59 18:59 Intake Total 1075.727 276 23 Output Total 565 565 90 Balance 510.727 -289 -67 Weight 56.8 kg 60.1 kg Intake: IV 386 276 23 CO/CI 20 Lactated Ringers 1,000 ml 280 240 20 @ 20 mls/hr IV .Q24H [facility] Rx#:[id number] Pressure Bag 36 36 3 ceFAZolin 2 gm In Sodium 50 Chloride 0.9% 50 ml @ 100 mls/hr IVPB ONCE ONE Rx# :[id number] Intake, IV Titration 329.727 Amount Amiodarone 450 mg In 244.727 Dextrose 5% in Water 250 ml @ 0.5 MG/MIN 16.667 mls/hr IV .Q15H [facility] Rx#: [id number] Clevidipine Butyrate 25 9.699 mg In Empty Bag 1 bag @ 1 MG/HR 2 mls/hr IV .Q24H [facility] Rx#:[id number] Insulin Regular 100 unit 12.751 In Sodium Chloride 0.9% 100 ml @ Per Protocol IV .Q0M [facility] Rx#:[id number] Nitroglycerin-D5w Pmx 50 62.55 mg In Dextrose/Water 1 250ml.bag @ 5 MCG/MIN 1.5 mls/hr IV .Q24H [facility] Rx#: [id number] Oral 360 Output: Chest Tube Drainage 200 220 50 Left Pleural 145 130 30 Medistinal x2 55 90 20 Urine 365 345 40 Other: Voiding Method Indwelling Catheter Indwelling Catheter # Bowel Movements 1 ABP, PAP, CO, CI - Last Documented Arterial Blood Pressure 120/95 Pulmonary Artery Pressure 29/10 Cardiac Output 6.9 Cardiac Index 4.3 - Exam CONSTITUTIONAL: Cooperative, no acute distress although does complain of pain and sweating RESPIRATORY: Lungs sounds diminished bilaterally. Respirations even, nonlabored. Currently on 2 L nasal cannula with oxygen saturation 93%. Able to achieve 750-1000 mL on incentive spirometry. Strong cough. CARDIOVASCULAR: S1, S2 present. Regular rate and rhythm, sinus rhythm on telemetry. Sternum stable. Palpable peripheral pulses bilaterally. No edema present. No calf pain or tenderness noted. Heart hugger in place with patient demonstrating appropriate use. Antiembolism stockings, SCDs present. GASTROINTESTINAL: Abdomen soft, nontender, nondistended. Active bowel sounds present 4 quadrants. Tolerating diet. Positive small bowel movement this morning GENITOURINARY: Juarez present draining clear, yellow urine. Output overnight 2 0-45 mL per hour, 710 mL in the last 24 hours INTEGUMENTARY: Skin is warm and dry with evidence of good perfusion. Anterior chest incision well approximated and covered with dry intact dressing. Left lower extremity EVH site well approximated without redness or drainage. NEUROLOGIC: Cranial nerves II through XII intact MUSKULOSKELETAL: Able to move all extremities, strength equal bilaterally, gait normal PSYCHIATRIC: Alert and oriented to person place and time, appropriate affect, intact judgment and insight INVASIVE LINES AND TUBES: Mediastinal/left pleural chest tubes present and conn ected to wall suction, no air leaks present. Mediastinal tube with 40 mL serosanguineous drainage overnight, 200 mL in the last 24 hours. Left pleural chest tube with 60 mL serosanguineous drainage overnight, 250 mL in the last 24 hours. Ventricular epicardial pacemaker wires present, grounded. Right internal jugular [place]/Cordis present. Last CVP 8. - Allied health notes Allied health notes reviewed: nursing - Labs CBC & Chem 7: 09/19/23 03:28 09/19/23 03:28 Labs: Abnormal Lab Results - Last 24 Hours (Table) 09/18/23 09/18/23 09/18/23 Range/Units 07:59 08:56 09:53 WBC (3.8-10.6) k/uL RBC (4.30-5.90) m/uL Plt Count (150-450) k/uL Neutrophils # (1.3-7.7) k/uL Lymphocytes # (1.0-4.8) k/uL Sodium (137-145) mmol/L BUN (9-20) mg/dL Glucose (74-99) mg/dL POC Glucose (mg/dL) 131 H 135 H 138 H (70-110) mg/dL Total Protein (6.3-8.2) g/dL 09/18/23 09/18/23 09/18/23 Range/Units 11:01 11:54 13:07 WBC (3.8-10.6) k/uL RBC (4.30-5.90) m/uL Plt Count (150-450) k/uL Neutrophils # (1.3-7.7) k/uL Lymphocytes # (1.0-4.8) k/uL Sodium (137-145) mmol/L BUN (9-20) mg/dL Glucose (74-99) mg/dL POC Glucose (mg/dL) 115 H 111 H 128 H (70-110) mg/dL Total Protein (6.3-8.2) g/dL 09/18/23 09/18/23 09/18/23 Range/Units 14:07 15:08 16:45 WBC (3.8-10.6) k/uL RBC (4.30-5.90) m/uL Plt Count (150-450) k/uL Neutrophils # (1.3-7.7) k/uL Lymphocytes # (1.0-4.8) k/uL Sodium (137-145) mmol/L BUN (9-20) mg/dL Glucose (74-99) mg/dL POC Glucose (mg/dL) 137 H 129 H 118 H (70-110) mg/dL Total Protein (6.3-8.2) g/dL 09/18/23 09/19/23 09/19/23 Range/Units 20:23 03:28 03:28 WBC 18.3 H (3.8-10.6) k/uL RBC 4.25 L (4.30-5.90) m/uL Plt Count 144 L (150-450) k/uL Neutrophils # 16.3 H (1.3-7.7) k/uL Lymphocytes # 0.8 L (1.0-4.8) k/uL Sodium 135 L (137-145) mmol/L BUN 21 H (9-20) mg/dL Glucose 112 H (74-99) mg/dL POC Glucose (mg/dL) 119 H (70-110) mg/dL Total Protein 5.9 L (6.3-8.2) g/dL - Imaging and Cardiology Chest x-ray: report reviewed, image reviewed Assessment and Plan Assessment: Coronary artery disease, unstable angina, status post single-vessel off-pump CABG Multiple myocardial infarctions with multiple stents Hypertension Hyperlipidemia, cholesterol 203, LDL 123 Current tobacco dependence with cessation upon admission to the hospital, FEV1 91% of predicted Nightly marijuana use for anxiety Previous heavy EtOH use with admission earlier this year to [place], does admit to still drinking about 2 beers a month Peripheral arterial disease with claudication, right TRELL 0.71, left TRELL 0.64 Left internal carotid stenosis 100% with possible TIA in the past Medical noncompliance Family history of premature coronary artery disease Plan: Continue to maximize medical therapy with aspirin, statin, Plavix, beta-ingrid. Lopressor increased to 25 mg 3 times daily today Continue losartan for afterload reduction, increased to 50 mg daily today Continue amiodarone for A-fib prophylaxis, patient has had no A-fib at this point Wean O2 as tolerated, encourage incentive spirometry use 10 times every hour while awake. Bronchodilators per pulmonology Increase activity, ambulate as tolerated. PT/OT/cardiac rehab consulted Will monitor daily labs and x-rays, electrolyte replacement per protocol GI/DVT prophylaxis Insulin management per internal medicine Pain control with current medication regimen, Oxy changed to [place] Will discontinue cordis Will discontinue mediastinal chest tube, continue pleural chest tubes for another 24 hours, monitor output Discontinue Juarez, may bladder scan and straight cath for greater than 300 mL residual Continue to monitor and record strict accurate intake and output Daily weights More recommendations to follow
[2023-09-19 11:32] LABS: Glucose,Whole Blood 135 mg/dL (70-110)
--- NOTE | 2023-09-19 11:55 | P.PN ---
Subjective Progress Note Date: 09/19/23 Hospital Course: Patient is a 58-year-old male with history of CAD status post stents, hyperten velasquez, hyperlipidemia, nicotine dependence, anxiety with depression and nightly cannabis use. He presented to the emergency department on 09/08/2023 secondary to a chief complaint of chest pain. He underwent evaluation in the emergency department. Vital signs upon arrival show blood pressure 160/90, heart rate 80, respiratory rate 18, temp 98.6 F, and SpO2 of 96% on room air. EKG was completed showing normal sinus rhythm at 68 bpm with prominent Q waves in inferior leads. Chest x-ray was negative for acute cardiopulmonary process. Completed and reviewed. CBC revealed leukocytosis with WBC count of 12.4. Coagulation profile normal findings. BMP unremarkable. Magnesium was 1.9. Liver profile unremarkable. Troponin was negative at less than 0.012. Patient was admitted under services with consultation to cardiology. Troponins trended overnight resulting at less than 0.012 x 3 draws. Lipid profile revealed elevated triglycerides of 164 and total cholesterol of 203.00. Hemoglobin A1c 5.5%. Patient went for a cardiac stress test which was positive for reversible ischemia. Cardiology then took patient for cardiac catheterization revealing 80% stenosis of mid LAD and 100% stenosis of RCA. Cardiology stated patient is not an appropriate candidate for PCI with stenting as he has shown evidence of in-stent restenosis and consulted cardiothoracic surgery for evaluation for b ypass. Echocardiogram completed showing a preserved EF of 50 to 55% with no significant valvular or structural abnormalities reported. Underwent CABG on 09/16. Currently recovering in medical ICU. Extubated. Patient improving well. Subjective: Patient seen and examined at bedside. No acute events overnight. Having some nausea. Still able to tolerate oral intake. Making adequate urine. Juarez catheter and chest tube still in place. Pertinent positives and negatives as discussed above, a complete review of systems was performed and all other systems are negative. Vitals Signs Reviewed. General: Nontoxic, no distress Derm: Warm, dry, chest tubes in place Head: Atraumatic, normocephalic, symmetric Eyes: EOMI, no lid lag, anicteric sclera Mouth: No lip lesion, mucus membranes moist Cardiovascular: S1S2 reg, no murmur Lungs: CTA bilateral, no rhonchi, no rales, no accessory muscle use, supplemental oxygen Abdominal: Soft, nontender, no appreciable organomegaly Ext: No gross muscle atrophy, no edema, no contractures Neuro: CN II to XII grossly normal Psych: Alert and oriented, cooperative Data Reviewed Today: Pertinent Labs: WBC 18.3, hemoglobin 13.3, sodium 135, creatinine 0.90, blood sugars range between 1 12- 19 Imaging: Chest x-ray independently interpreted, shows interstitial opacities similar to yesterday, EKG independently interpreted, shows possible ST eleva tions in the lateral leads, some other nonspecific ST-T wave changes Assessment and Plan: Occlusive coronary artery disease status post CABG Chest pain, secondary to above CAD with previous stenting x7 Hypertension Hyperlipidemia Nicotine dependence Anxiety Hyperglycemia -Thoracic surgery note reviewed, Lopressor increased, losartan increased, discontinue mediastinal chest tube, continue pleural chest tube for another 24 hours, discontinue Juarez catheter today -Sliding scale insulin, monitor for hypoglycemia, patient tolerating oral intake -Pulmonology note reviewed, continue current therapy -Cardiology note reviewed, continue current treatment -PT/OT -Continue telemetry monitoring -Continue aspirin 325 daily, Plavix 75 mg daily, metoprolol 25 every 8 hours, losartan 50 daily, atorvastatin 40 amiodarone 400 twice daily -Pain control with oral Tylenol as needed, oral Oxy as needed,, IV Dilaudid as needed monitor for sedation, also on 50 mg IV push Toradol every 6 hours scheduled -Recommend smoking cessation during this admission, patient declined nicotine patch Pulmonary nodule -CT chest was completed and radiology report reviewed showing a right upper lobe 4 mm pulmonary nodule. Patient high risk secondary to smoking history will need repeat CT chest in 12 months. 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 DVT ppx: Subcu heparin Code status: Full code Anticipated discharge place: Pending clinical course Anticipated discharge time: Pending clinical course Objective - Vital Signs Vital signs: Vital Signs Temp 99.3 F 09/19/23 08:00 Pulse 89 09/19/23 09:02 Resp 25 H 09/19/23 09:00 BP 109/67 09/19/23 09:00 Pulse Ox 98 09/19/23 09:00 FiO2 50 09/17/23 15:00 Intake & Output 09/18/23 09/19/23 09/19/23 18:59 06:59 18:59 Intake Total 1075.727 276 46 Output Total 565 565 110 Balance 510.727 -289 -64 Weight 56.8 kg 60.1 kg Intake: IV 386 276 46 CO/CI 20 Lactated Ringers 1,000 ml 280 240 40 @ 20 mls/hr IV .Q24H [facility] Rx#:[id number] Pressure Bag 36 36 6 ceFAZolin 2 gm In Sodium 50 Chloride 0.9% 50 ml @ 100 mls/hr IVPB ONCE ONE Rx# :[id number] Intake, IV Titration 329.727 Amount Amiodarone 450 mg In 244.727 Dextrose 5% in Water 250 ml @ 0.5 MG/MIN 16.667 mls/hr IV .Q15H [facility] Rx#: [id number] Clevidipine Butyrate 25 9.699 mg In Empty Bag 1 bag @ 1 MG/HR 2 mls/hr IV .Q24H [facility] Rx#:[id number] Insulin Regular 100 unit 12.751 In Sodium Chloride 0.9% 100 ml @ Per Protocol IV .Q0M [facility] Rx#:[id number] Nitroglycerin-D5w Pmx 50 62.55 mg In Dextrose/Water 1 250ml.bag @ 5 MCG/MIN 1.5 mls/hr IV .Q24H [facility] Rx#: [id number] Oral 360 Output: Chest Tube Drainage 200 220 50 Left Pleural 145 130 30 Medistinal x2 55 90 20 Urine 365 345 60 Other: Voiding Method Indwelling Catheter Indwelling Catheter Indwelling Catheter # Bowel Movements 1 ABP, PAP, CO, CI - Last Documented Arterial Blood Pressure 120/95 Pulmonary Artery Pressure 29/10 Cardiac Output 6.9 Cardiac Index 4.3 - Labs CBC & Chem 7: 09/19/23 03:28 09/19/23 03:28 Labs: Abnormal Lab Results - Last 24 Hours (Table) 09/18/23 09/18/23 09/18/23 Range/Units 11:54 13:07 14:07 WBC (3.8-10.6) k/uL RBC (4.30-5.90) m/uL Plt Count (150-450) k/uL Neutrophils # (1.3-7.7) k/uL Lymphocytes # (1.0-4.8) k/uL Sodium (137-145) mmol/L BUN (9-20) mg/dL Glucose (74-99) mg/dL POC Glucose (mg/dL) 111 H 128 H 137 H (70-110) mg/dL Total Protein (6.3-8.2) g/dL 09/18/23 09/18/23 09/18/23 Range/Units 15:08 16:45 20:23 WBC (3.8-10.6) k/uL RBC (4.30-5.90) m/uL Plt Count (150-450) k/uL Neutrophils # (1.3-7.7) k/uL Lymphocytes # (1.0-4.8) k/uL Sodium (137-145) mmol/L BUN (9-20) mg/dL Glucose (74-99) mg/dL POC Glucose (mg/dL) 129 H 118 H 119 H (70-110) mg/dL Total Protein (6.3-8.2) g/dL 09/19/23 09/19/23 09/19/23 Range/Units 03:28 03:28 11:30 WBC 18.3 H (3.8-10.6) k/uL RBC 4.25 L (4.30-5.90) m/uL Plt Count 144 L (150-450) k/uL Neutrophils # 16.3 H (1.3-7.7) k/uL Lymphocytes # 0.8 L (1.0-4.8) k/uL Sodium 135 L (137-145) mmol/L BUN 21 H (9-20) mg/dL Glucose 112 H (74-99) mg/dL POC Glucose (mg/dL) 135 H (70-110) mg/dL Total Protein 5.9 L (6.3-8.2) g/dL
--- NOTE | 2023-09-19 12:51 | P.PN ---
Subjective Progress Note Date: 09/19/23 Principal diagnosis: off-pump coronary artery bypass grafting x 1 utilizing a CARRILLO to the LAD with a left atrial appendage ligation. Postoperative day #2 58-year-old male patient known history of coronary artery disease with previous coronary stenting along with hypertension hyperlipidemia and previous history of tobacco marijuana smoking and previous history of heavy alcohol drinking along with history of PAD, carotid artery stenosis on the left and a strong family history of coronary disease. The patient presented with complaints of chest pain and the patient underwent a cardiac catheterization the patient was found to have 80% stenosis of the LAD in its mid segment, 100% ostial RCA, 100% in- stent restenosis of the RCA and right to left collaterals and filling of the PDA and PL branches. The patient is currently being worked up for coronary artery bypass surgery. The patient had negative troponins. Renal function is stable with a normal creatinine, normal electrolytes, normal CBC and the viral screen was negative and the chest x-ray showed no acute cardiopulmonary abnormalities and the patient further had a CT scan of the chest on 09/11/2023 that showed no acute thoracic process, 4 mm right upper lobe pulmonary nodule, moderate to severe three-vessel coronary disease along with mild atherosclerotic disease involving the aorta and its branches and moderate atherosclerotic disease involving the bilateral renal arteries and mild background COPD. Echo done on 09/11/2023 showed preserved LV function along with segmental wall motion abnormalities involving the inferior and septal wall and the carotid Dopplers showed completely occluded left internal carotid artery without any flow. The patient is currently on room air oxygen with a pulse ox of 95%. The patient was seen by cardiothoracic surgery. He is not normal sinus rhythm. Plan for bypass surgery on 09/17/2023. 09/13/2023, the patient remains free of any chest pain. No specific complaints. The plan is to undergo coronary bypass surgery next week. The patient denies having any new complaints otherwise. Surgery will be done by Dr. Dee. Hemoglobin is at least 15.5 with a white cell count of 8.9. Electrolytes are within normal limits. 09/14/2023, no new complaints and the patient is still scheduled to undergo surgery on 09/17/2023. Ambulating. Incentive spirometer. No complaints. Cardiac rhythm remained sinus. No labs from today. Medications remain unchanged. The patient is on room air oxygen. 09/15/2023, patient is on the 6 floor. Sitting up on the chair. Tolerating diet. No chest pain. Using incentive spirometer. Cardiac rhythm is sinus. No signs of any delirium tremens. Labs from 09/13/2023 were reviewed. No other labs for today. The patient is seen today September 16, 2023 in follow-up on the regular medical floor. He is awake and alert in no acute distress. Sitting up in bed. He denies any shortness of breath, cough or congestion. He is maintaining good O2 saturations in the 90s on room air. He is working well with his incentive spirometer. He denies any chest pain or palpitations. White count 9.0. Hemoglobin 16.2. Platelets 203. Sodium 137. Potassium 4.4. Bicarb 21. BUN 21. Creatinine 0.9. Glucose 90. He remains on heparin for DVT prophylaxis. The patient is seen today September 17, 2023 postoperatively in the intensive care unit. He did undergo an off-pump coronary artery bypass grafting x 1 utilizing a CARRILLO to the LAD with a left atrial appendage ligation. Postoperative day #0. He is intubated on the mechanical ventilator and assist-control mode at a rate of 16, tidal volume 450, FiO2 100% and a PEEP of 5. Arterial blood gases revealed a PaO2 of 349, P CO2 of 45 and a pH of 7.37. White count 11.9. Hemoglobin 13.2. Platelets 137. Sodium 138. Potassium 3.9. Bicarb 24. BUN 17. Creatinine 0.67. Glucose 116. AST 26. ALT 26. Chest x-ray reveals bilateral platelike atelectasis left greater than right. Small left apical pneumothorax may be present. He does have mediastinal and left chest tubes present. Wadsworth-Nataly catheter present. Endotracheal and nasogastric tubes in place. He is currently sedated on propofol at 20 mcg/kg/min being transition to Precedex currently at 0.6 mcg/kg/h. He is on clevidipine at 2 mg an hour. Nitroglycerin drip at 5 mcg/min. Insulin drip at 1 unit/h. Amiodarone drip at 1 mg/min. Lactated Ringer's at 50 MLS per hour. Cardiac output is 3.5. Cardiac index 2.2. PA pressures 27/11. CVP of 3. Patient was reevaluated today on 09/18/2023, patient is POD #1 off pump coronary artery bypass grafting x 1, left internal thoracic artery (in-situ) to left anterior descending coronary artery, endoscopic left greater saphenous vein harvest, left atrial appendage ligation using #35mm AtriClip, graft flow measurements using the Medi-Stim flow meter system, trans-esophageal echo, patient was extubated yesterday at 1530. Patient is doing quite well, he is in sinus rhythm, hemodynamically stable, on IV amiodarone at 0.5 mg/min, he is on nitroglycerin drip as well as Cleviprex drip at 20 mg/h. Cardiac output is 6.9 cardiac index is 4.3, patient is receiving insulin at 1 unit/h. LR at 50 cc/h. Patient has mostly as expected postoperative pain, receiving Dilaudid as needed for pain control. Continues to have right IJ Wadsworth-Nataly catheter, mediastinal/left pleural chest tubes, and again does not seem to be uncomfortableWBC count is 18.2 hemoglobin 14.3. Basic metabolic profile is normal with a relatively normal renal profile. Chest x-ray is mostly showing as expected postoperative changes no acute process otherwise as noted Patient was evaluated today on 09/19/2023, POD #2 off pump coronary artery bypass grafting x 1, left internal thoracic artery (in-situ) to left anterior descending coronary artery, endoscopic left greater saphenous vein harvest, left atrial appendage ligation using #35mm AtriClip, graft flow measurements using the Medi-Stim flow meter system, trans-esophageal echo patient is sitting in a recliner, doing well, relatively asymptomatic, pain seems to be fairly under control with oxycodone and Dilaudid. Patient is heme medically stable, on 2 L nasal cannula, still doing poorly with incentive spirometry achieving no more than 750 cc patient continues to have multiple catheters and lines, this will likely be removed in the next 24 to 48 hours. Overall the patient is improving, and his clinical course is as expected. WBC count is 18.3 hemoglobin is 13.3 basic metabolic profile is normal and renal profile is normal. Chest x-ray today showed mostly postoperative cardiac surgery changes otherwise negative Objective - Vital Signs Vital signs: Vital Signs Temp 99.3 F 09/19/23 08:00 Pulse 89 09/19/23 09:02 Resp 25 H 09/19/23 09:00 BP 109/67 09/19/23 09:00 Pulse Ox 98 09/19/23 09:00 FiO2 50 09/17/23 15:00 Intake & Output 09/18/23 09/19/23 09/19/23 18:59 06:59 18:59 Intake Total 1075.727 276 46 Output Total 565 565 110 Balance 510.727 -289 -64 Weight 56.8 kg 60.1 kg Intake: IV 386 276 46 CO/CI 20 Lactated Ringers 1,000 ml 280 240 40 @ 20 mls/hr IV .Q24H [facility] Rx#:[id number] Pressure Bag 36 36 6 ceFAZolin 2 gm In Sodium 50 Chloride 0.9% 50 ml @ 100 mls/hr IVPB ONCE ONE Rx# :[id number] Intake, IV Titration 329.727 Amount Amiodarone 450 mg In 244.727 Dextrose 5% in Water 250 ml @ 0.5 MG/MIN 16.667 mls/hr IV .Q15H [facility] Rx#: [id number] Clevidipine Butyrate 25 9.699 mg In Empty Bag 1 bag @ 1 MG/HR 2 mls/hr IV .Q24H [facility] Rx#:[id number] Insulin Regular 100 unit 12.751 In Sodium Chloride 0.9% 100 ml @ Per Protocol IV .Q0M [facility] Rx#:[id number] Nitroglycerin-D5w Pmx 50 62.55 mg In Dextrose/Water 1 250ml.bag @ 5 MCG/MIN 1.5 mls/hr IV .Q24H [facility] Rx#: [id number] Oral 360 Output: Chest Tube Drainage 200 220 50 Left Pleural 145 130 30 Medistinal x2 55 90 20 Urine 365 345 60 Other: Voiding Method Indwelling Catheter Indwelling Catheter Indwelling Catheter # Bowel Movements 1 ABP, PAP, CO, CI - Last Documented Arterial Blood Pressure 120/95 Pulmonary Artery Pressure 29/10 Cardiac Output 6.9 Cardiac Index 4.3 - Exam General:: Reveals a 58-year-old white male in no distress. On 2 L nasal cannula RESPIRATORY: Good breath sound bilaterally no crackles rhonchi or wheezes CARDIOVASCULAR: Distant S1-S2, no S3 gallop, no murmur. GASTROINTESTINAL: Abdomen is soft nontender no megaly no rebound no guarding. INTEGUMENTARY: Skin is warm and dry with evidence of good perfusion NEUROLOGIC: Alert and oriented x 3 no gross focal deficit MUSKULOSKELETAL: No deformities and no limitation range of motion PSYCHIATRIC: Normal mood and affect no mental status examination I - Labs CBC & Chem 7: 09/19/23 03:28 09/19/23 03:28 Labs: Abnormal Lab Results - Last 24 Hours (Table) 09/18/23 09/18/23 09/18/23 Range/Units 13:07 14:07 15:08 WBC (3.8-10.6) k/uL RBC (4.30-5.90) m/uL Plt Count (150-450) k/uL Neutrophils # (1.3-7.7) k/uL Lymphocytes # (1.0-4.8) k/uL Sodium (137-145) mmol/L BUN (9-20) mg/dL Glucose (74-99) mg/dL POC Glucose (mg/dL) 128 H 137 H 129 H (70-110) mg/dL Total Protein (6.3-8.2) g/dL 09/18/23 09/18/23 09/19/23 Range/Units 16:45 20:23 03:28 WBC 18.3 H (3.8-10.6) k/uL RBC 4.25 L (4.30-5.90) m/uL Plt Count 144 L (150-450) k/uL Neutrophils # 16.3 H (1.3-7.7) k/uL Lymphocytes # 0.8 L (1.0-4.8) k/uL Sodium (137-145) mmol/L BUN (9-20) mg/dL Glucose (74-99) mg/dL POC Glucose (mg/dL) 118 H 119 H (70-110) mg/dL Total Protein (6.3-8.2) g/dL 09/19/23 09/19/23 Range/Units 03:28 11:30 WBC (3.8-10.6) k/uL RBC (4.30-5.90) m/uL Plt Count (150-450) k/uL Neutrophils # (1.3-7.7) k/uL Lymphocytes # (1.0-4.8) k/uL Sodium 135 L (137-145) mmol/L BUN 21 H (9-20) mg/dL Glucose 112 H (74-99) mg/dL POC Glucose (mg/dL) 135 H (70-110) mg/dL Total Protein 5.9 L (6.3-8.2) g/dL Assessment and Plan Assessment: Impression: Coronary artery disease/symptomatic with unstable angina, status post single- vessel off-pump CABG postoperative day #2 History of previous ME and multiple stents placement Generalized anxiety disorder Dyslipidemia Benign essential hypertension Peripheral vessel occlusive disease Medical noncompliance Family history of premature coronary artery disease Recommendation: Continue maximal medical therapy with beta-blockers Plavix statin and aspirin Increase activity and ambulate Continue incentive spirometry Continue GI and DVT prophylaxis Continue pain medications for pain control Continue insulin for diabetes management Will continue to follow Time with Patient: Less than 30
[2023-09-19] MEDS: HYDROcodone/APAP 10-325MG 1 EACH TAB PO PRN (14:37)
[2023-09-19 16:54] LABS: Glucose,Whole Blood 95 mg/dL (70-110)
[2023-09-19 20:38] LABS: Glucose,Whole Blood 113 mg/dL (70-110)
[2023-09-20 06:32] LABS: Glucose,Whole Blood 111 mg/dL (70-110)
--- NOTE | 2023-09-20 07:59 | P.PN ---
Subjective Progress Note Date: 09/20/23 Principal diagnosis: Coronary artery disease, unstable angina. History of multiple myocardial infarctions with multiple stents, hypertension, hyperlipidemia, current tobacco dependence with cessation upon admission to the hospital, nightly marijuana use for anxiety, previous heavy EtOH use with admission earlier this year to [facility], does admit to still drinking about 2 beers a month, peripheral arterial disease with claudication, left internal carotid stenosis 100% with possible TIA in the past, medical noncompliance, family history of premature coronary artery disease POD #3 off pump coronary artery bypass grafting x 1, left internal thoracic artery (in-situ) to left anterior descending coronary artery, endoscopic left greater saphenous vein harvest, left atrial appendage ligation using #35mm AtriClip, graft flow measurements using the [employer]-Stim flow meter system, trans- esophageal echo The patient was seen and examined this morning sitting up in recliner on the cardiac stepdown unit in no acute distress. He does complain of postsurgical pain which is significantly better since removal of chest tubes. Currently in sinus rhythm, hemodynamically stable. Currently on room air, able to achieve 2506-5362 mL on his incentive spirometry. Patient has been ambulatory in the hallway with assistance. The main concern at this point is discharge planning as patient was living in a hotel prior to surgery, he may not go to a hotel at discharge. Social work is working on finding placement but his insurance is unfortunately a prohibitive factor. Chest x-ray reviewed, labs pending. Objective - Vital Signs Vital signs: Vital Signs Temp 98.3 F 09/20/23 04:06 Pulse 83 09/20/23 04:06 Resp 16 09/20/23 04:06 BP 99/62 09/20/23 04:06 Pulse Ox 96 09/20/23 04:06 FiO2 50 09/17/23 15:00 Intake & Output 09/19/23 09/20/23 09/20/23 18:59 06:59 18:59 Intake Total 207 Output Total 335 200 Balance -128 -200 Weight 60 kg Intake: IV 207 Lactated Ringers 1,000 ml 180 @ 20 mls/hr IV .Q24H [facility] Rx#:[id number] Pressure Bag 27 Output: Chest Tube Drainage 50 Left Pleural 30 Medistinal x2 20 Urine 285 200 Other: Voiding Method Indwelling Catheter Urinal # Voids 1 1 # Bowel Movements 1 1 ABP, PAP, CO, CI - Last Documented Arterial Blood Pressure 120/95 Pulmonary Artery Pressure 29/10 Cardiac Output 6.9 Cardiac Index 4.3 - Exam CONSTITUTIONAL: Cooperative, no acute distress RESPIRATORY: Lungs sounds diminished bilaterally. Respirations even, nonlabored. Currently on room air with oxygen saturation 93%. Able to achieve 5017-3584 mL on incentive spirometry. Strong nonproductive cough. CARDIOVASCULAR: S1, S2 present. Regular rate and rhythm, sinus rhythm on telemetry. Sternum stable. Palpable peripheral pulses bilaterally. No edema present. No calf pain or tenderness noted. Heart hugger in place with patient demonstrating appropriate use. Antiembolism stockings, SCDs present. GASTROINTESTINAL: Abdomen soft, nontender, nondistended. Active bowel sounds present 4 quadrants. Tolerating diet. Positive multiple bowel movements yesterday GENITOURINARY: Continues to void INTEGUMENTARY: Skin is warm and dry with evidence of good perfusion. Anterior chest incision well approximated and covered with dry intact dressing. Left lower extremity EVH site well approximated without redness or drainage. NEUROLOGIC: Cranial nerves II through XII intact MUSKULOSKELETAL: Able to move all extremities, strength equal bilaterally, gait normal PSYCHIATRIC: Alert and oriented to person place and time, appropriate affect, intact judgment and insight INVASIVE LINES AND TUBES: Ventricular epicardial pacemaker wires present, grounded - Allied health notes Allied health notes reviewed: nursing - Labs CBC & Chem 7: 09/19/23 03:28 09/19/23 03:28 Labs: Abnormal Lab Results - Last 24 Hours (Table) 09/19/23 09/19/23 09/20/23 Range/Units 11:30 20:36 06:31 POC Glucose (mg/dL) 135 H 113 H 111 H (70-110) mg/dL - Imaging and Cardiology Chest x-ray: image reviewed Assessment and Plan Assessment: Coronary artery disease, unstable angina, status post single-vessel off-pump CABG Multiple myocardial infarctions with multiple stents Hypertension Hyperlipidemia, cholesterol 203, LDL 123 Current tobacco dependence with cessation upon admission to the hospital, FEV1 91% of predicted Nightly marijuana use for anxiety Previous heavy EtOH use with admission earlier this year to [facility], does admit to still drinking about 2 beers a month Peripheral arterial disease with claudication, right TRELL 0.71, left TRELL 0.64 Left internal carotid stenosis 100% with possible TIA in the past Medical noncompliance Family history of premature coronary artery disease Plan: Continue to maximize medical therapy with aspirin, statin, Plavix, beta-ingrid. Will increase beta-ingrid therapy as tolerated, increased to 25 mg twice daily yesterday Continue losartan for afterload reduction, decreased to 25 mg daily today due to decreased blood pressure Continue amiodarone for A-fib prophylaxis, patient has had no A-fib at this point Encourage incentive spirometry use 10 times every hour while awake. Bronchodilators per pulmonology Increase activity, ambulate as tolerated. PT/OT/cardiac rehab consulted Will monitor daily labs and x-rays, electrolyte replacement per protocol GI/DVT prophylaxis Insulin management per internal medicine Pain control with current medication regimen Will discontinue epicardial pacemaker wire, patient to remain on bedrest for 1 hour post wire removal Continue to monitor and record strict accurate intake and output Daily weights Discharge planning in progress. Anticipate discharge once placement has been found and insurance authorization obtained More recommendations to follow
[2023-09-20] MEDS: HYDROcodone/APAP 10-325MG 1 EACH TAB PO PRN (08:35)
[2023-09-20 09:37] LABS: Basophils # (A) 0.1 k/uL (0-0.2); Basophils % (A) 0 %; Eosinophils # (A) 0.1 k/uL (0-0.7); Eosinophils % (A) 1 %; HCT 35.5 % (39.0-53.0); HGB 11.7 gm/dL (13.0-17.5); Lymphocytes # (A) 0.7 k/uL (1.0-4.8); Lymphocytes % (A) 6 %; MCHC 32.9 g/dL (31.0-37.0); MCV 97.4 fL (80.0-100.0); Mean Platelet Volume 9.6; Monocytes # (A) 0.7 k/uL (0-1.0); Monocytes % (A) 7 %; Neutrophils % (A) 84 %; Platelet Count 128 k/uL (150-450); RBC 3.65 m/uL (4.30-5.90); RDW 13.9 % (11.5-15.5); WBC 10.7 k/uL (3.8-10.6)
[2023-09-20 09:48] LABS: ALT 16 U/L (4-49); AST 26 U/L (17-59); African American GFR (CKD) >90 (>60 ml/min/1.73 sqM); Albumin 3.3 g/dL (3.5-5.0); Alkaline Phosphatase 66 U/L (38-126); Anion Gap 5 mmol/L; Blood Urea Nitrogen 30 mg/dL (9-20); Calcium 8.5 mg/dL (8.4-10.2); Carbon Dioxide 27 mmol/L (22-30); Chloride 102 mmol/L (98-107); Glucose 114 mg/dL (74-99); Non-African American GFR(CKD) 89 (>60 ml/min/1.73 sqM); Potassium 4.2 mmol/L (3.5-5.1); Sodium 134 mmol/L (137-145); Total Bilirubin 0.7 mg/dL (0.2-1.3); Total Protein 5.2 g/dL (6.3-8.2)
--- NOTE | 2023-09-20 10:51 | P.PN ---
Subjective Progress Note Date: 09/20/23 PROGRESS NOTE The patient is a 58-year-old male with a known history of prior PCI who presented with persistent chest discomfort. He underwent cardiac catheterization and was found to have severe CAD with chronically occluded RCA and significant stenosis in the proximal LAD. He underwent off-pump CARRILLO to the LAD. The RCA was felt not to be a good target for percutaneous revascularization. He is awake, alert, extubated. He has chest soreness. His breathing is stable. He is in sinus mechanism. He has no significant drainage from the chest tube. His urinary output is stable. He is on no vasopressors. He is on IV amiodarone prophylactically. His echocardiogram preoperatively showed an ejection fraction of 50 to 55% with inferior wall hypokinesis September 18: The patient is sitting up in the chair, complaining of incisional chest discomfort and had some diaphoresis. His breathing is relatively stable. He continues to be in sinus mechanism. He denies any dizziness or palpitations. He has no significant nausea. His urinary output is stable. There is no episodes of malignant arrhythmia. Hemodynamically he is stable on no vasopressors. Medications: Aspirin, Cordarone 400 mg twice a day, Lipitor 40 mg daily, Plavix 75 mg daily, losartan 50 mg daily, metoprolol tartrate 25 mg 3 times daily. LAB: Hemoglobin 13.3, BUN 21, creatinine 0.90. Potassium 4.7. 09/19 And has been transferred out of the intensive care unit and seen today on the cardiac stepdown unit. Patient states he is feeling okay overall feeling better. He is using incentive spirometry frequently. He is working with physical therapy and walking in the hallway. His appetite is slightly better from yesterday but not back to normal. Repeat chest x-ray completed this morning shows no acute concerns. Blood pressure 99/65, heart rate 88, pulse ox 93% on room air. He is been afebrile. WBC 10.7, hemoglobin 11.7, platelet count 128. Potassium 4.2, BUN 30 creatinine 0.94. PHYSICAL EXAMINATION: LUNGS: Mild decreased breath sounds at the bases, HEART: Regular rate and rhythm, S1, S2. No S3. No systolic murmur, rub noted ABDOMEN: Soft, nontender, no organomegaly EXTREMETIES: No edema IMPRESSION: 1. Status post CABG with single CARRILLO to the LAD 2. Chronically occluded RCA not felt to be a candidate for bypass 3. Prior history of noncompliance 4. Hyperlipidemia PLAN: 1. Continue present therapy 2. Increase physical activity 3. Continue incentive spirometry 4. Depending on his progress further recommendations will be made Nurse practitioner note has been reviewed, I agree with documented findings and plan of care. Patient was seen and examined. Objective - Vital Signs Vital signs: Vital Signs Temp 98.1 F 09/20/23 08:18 Pulse 86 09/20/23 08:55 Resp 16 09/20/23 08:18 BP 99/65 09/20/23 08:18 Pulse Ox 95 09/20/23 08:47 FiO2 50 09/17/23 15:00 Intake & Output 09/19/23 09/20/23 09/20/23 18:59 06:59 18:59 Intake Total 207 Output Total 335 200 Balance -128 -200 Weight 60 kg Intake: IV 207 Lactated Ringers 1,000 ml 180 @ 20 mls/hr IV .Q24H [facility] Rx#:[id number] Pressure Bag 27 Output: Chest Tube Drainage 50 Left Pleural 30 Medistinal x2 20 Urine 285 200 Other: Voiding Method Indwelling Catheter Urinal # Voids 1 1 # Bowel Movements 1 1 ABP, PAP, CO, CI - Last Documented Arterial Blood Pressure 120/95 Pulmonary Artery Pressure 29/10 Cardiac Output 6.9 Cardiac Index 4.3 - Labs CBC & Chem 7: 09/20/23 08:25 09/20/23 08:25 Labs: Abnormal Lab Results - Last 24 Hours (Table) 09/19/23 09/19/23 09/20/23 Range/Units 11:30 20:36 06:31 POC Glucose (mg/dL) 135 H 113 H 111 H (70-110) mg/dL
[2023-09-20 11:40] LABS: Glucose,Whole Blood 106 mg/dL (70-110)
[2023-09-20] MEDS: LOSARTAN 25 MG TAB PO SCH (11:55)
--- NOTE | 2023-09-20 12:39 | P.PN ---
Subjective Progress Note Date: 09/20/23 Principal diagnosis: off-pump coronary artery bypass grafting x 1 utilizing a CARRILLO to the LAD with a left atrial appendage ligation. Postoperative day #3 58-year-old male patient known history of coronary artery disease with previous coronary stenting along with hypertension hyperlipidemia and previous history of tobacco marijuana smoking and previous history of heavy alcohol drinking along with history of PAD, carotid artery stenosis on the left and a strong family history of coronary disease. The patient presented with complaints of chest pain and the patient underwent a cardiac catheterization the patient was found to have 80% stenosis of the LAD in its mid segment, 100% ostial RCA, 100% in- stent restenosis of the RCA and right to left collaterals and filling of the PDA and PL branches. The patient is currently being worked up for coronary artery bypass surgery. The patient had negative troponins. Renal function is stable with a normal creatinine, normal electrolytes, normal CBC and the viral screen was negative and the chest x-ray showed no acute cardiopulmonary abnormalities and the patient further had a CT scan of the chest on 09/11/2023 that showed no acute thoracic process, 4 mm right upper lobe pulmonary nodule, moderate to severe three-vessel coronary disease along with mild atherosclerotic disease involving the aorta and its branches and moderate atherosclerotic disease involving the bilateral renal arteries and mild background COPD. Echo done on 09/11/2023 showed preserved LV function along with segmental wall motion abnormalities involving the inferior and septal wall and the carotid Dopplers showed completely occluded left internal carotid artery without any flow. The patient is currently on room air oxygen with a pulse ox of 95%. The patient was seen by cardiothoracic surgery. He is not normal sinus rhythm. Plan for bypass surgery on 09/17/2023. 09/13/2023, the patient remains free of any chest pain. No specific complaints. The plan is to undergo coronary bypass surgery next week. The patient denies having any new complaints otherwise. Surgery will be done by Dr. Dee. Hemoglobin is at least 15.5 with a white cell count of 8.9. Electrolytes are within normal limits. 09/14/2023, no new complaints and the patient is still scheduled to undergo surgery on 09/17/2023. Ambulating. Incentive spirometer. No complaints. Cardiac rhythm remained sinus. No labs from today. Medications remain unchanged. The patient is on room air oxygen. 09/15/2023, patient is on the 6 floor. Sitting up on the chair. Tolerating diet. No chest pain. Using incentive spirometer. Cardiac rhythm is sinus. No signs of any delirium tremens. Labs from 09/13/2023 were reviewed. No other labs for today. The patient is seen today September 16, 2023 in follow-up on the regular medical floor. He is awake and alert in no acute distress. Sitting up in bed. He denies any shortness of breath, cough or congestion. He is maintaining good O2 saturations in the 90s on room air. He is working well with his incentive spirometer. He denies any chest pain or palpitations. White count 9.0. Hemoglobin 16.2. Platelets 203. Sodium 137. Potassium 4.4. Bicarb 21. BUN 21. Creatinine 0.9. Glucose 90. He remains on heparin for DVT prophylaxis. The patient is seen today September 17, 2023 postoperatively in the intensive care unit. He did undergo an off-pump coronary artery bypass grafting x 1 utilizing a CARRILLO to the LAD with a left atrial appendage ligation. Postoperative day #0. He is intubated on the mechanical ventilator and assist-control mode at a rate of 16, tidal volume 450, FiO2 100% and a PEEP of 5. Arterial blood gases revealed a PaO2 of 349, P CO2 of 45 and a pH of 7.37. White count 11.9. Hemoglobin 13.2. Platelets 137. Sodium 138. Potassium 3.9. Bicarb 24. BUN 17. Creatinine 0.67. Glucose 116. AST 26. ALT 26. Chest x-ray reveals bilateral platelike atelectasis left greater than right. Small left apical pneumothorax may be present. He does have mediastinal and left chest tubes present. [place] catheter present. Endotracheal and nasogastric tubes in place. He is currently sedated on propofol at 20 mcg/kg/min being transition to Precedex currently at 0.6 mcg/kg/h. He is on clevidipine at 2 mg an hour. Nitroglycerin drip at 5 mcg/min. Insulin drip at 1 unit/h. Amiodarone drip at 1 mg/min. Lactated Ringer's at 50 MLS per hour. Cardiac output is 3.5. Cardiac index 2.2. PA pressures 27/11. CVP of 3. Patient was reevaluated today on 09/18/2023, patient is POD #1 off pump coronary artery bypass grafting x 1, left internal thoracic artery (in-situ) to left anterior descending coronary artery, endoscopic left greater saphenous vein harvest, left atrial appendage ligation using #35mm AtriClip, graft flow measurements using the Medi-Stim flow meter system, trans-esophageal echo, patient was extubated yesterday at 1530. Patient is doing quite well, he is in sinus rhythm, hemodynamically stable, on IV amiodarone at 0.5 mg/min, he is on nitroglycerin drip as well as Cleviprex drip at 20 mg/h. Cardiac output is 6.9 cardiac index is 4.3, patient is receiving insulin at 1 unit/h. LR at 50 cc/h. Patient has mostly as expected postoperative pain, receiving Dilaudid as needed for pain control. Continues to have right IJ [place]ataly catheter, mediastinal/left pleural chest tubes, and again does not seem to be uncomfortableWBC count is 18.2 hemoglobin 14.3. Basic metabolic profile is normal with a relatively normal renal profile. Chest x-ray is mostly showing as expected postoperative changes no acute process otherwise as noted Patient was evaluated today on 09/19/2023, POD #2 off pump coronary artery bypass grafting x 1, left internal thoracic artery (in-situ) to left anterior descending coronary artery, endoscopic left greater saphenous vein harvest, left atrial appendage ligation using #35mm AtriClip, graft flow measurements using the Medi-Stim flow meter system, trans-esophageal echo patient is sitting in a recliner, doing well, relatively asymptomatic, pain seems to be fairly under control with oxycodone and Dilaudid. Patient is heme medically stable, on 2 L nasal cannula, still doing poorly with incentive spirometry achieving no more than 750 cc patient continues to have multiple catheters and lines, this will likely be removed in the next 24 to 48 hours. Overall the patient is improving, and his clinical course is as expected. WBC count is 18.3 hemoglobin is 13.3 basic metabolic profile is normal and renal profile is normal. Chest x-ray today showed mostly postoperative cardiac surgery changes otherwise negative Reevaluated today on 09/20/2023, patient is now postoperative day #3. Continues to do quite well, relatively asymptomatic except for some postsurgical pain. Patient is on room air, he is not in any distress. WBC count is 10.7 hemoglobin 11.7 basic metabolic profile is normal and renal profile is normal. Chest x-ray showed bibasilar atelectasis. Objective - Vital Signs Vital signs: Vital Signs Temp 98.1 F 09/20/23 08:18 Pulse 87 09/20/23 12:00 Resp 16 09/20/23 10:03 BP 99/65 09/20/23 08:18 Pulse Ox 95 09/20/23 08:47 FiO2 50 09/17/23 15:00 Intake & Output 09/19/23 09/20/23 09/20/23 18:59 06:59 18:59 Intake Total 207 118 Output Total 335 200 Balance -128 -200 118 Weight 60 kg Intake: IV 207 Lactated Ringers 1,000 ml 180 @ 20 mls/hr IV .Q24H [facility] Rx#:[id number] Pressure Bag 27 Oral 118 Output: Chest Tube Drainage 50 Left Pleural 30 Medistinal x2 20 Urine 285 200 Other: Voiding Method Indwelling Catheter Urinal Urinal # Voids 1 1 # Bowel Movements 1 1 ABP, PAP, CO, CI - Last Documented Arterial Blood Pressure 120/95 Pulmonary Artery Pressure 29/10 Cardiac Output 6.9 Cardiac Index 4.3 - Exam General:: Reveals a 58-year-old white male in no distress. On room air RESPIRATORY: Good breath sound bilaterally no crackles rhonchi or wheezes CARDIOVASCULAR: Distant S1-S2, no S3 gallop, no murmur. GASTROINTESTINAL: Abdomen is soft nontender no megaly no rebound no guarding. INTEGUMENTARY: Skin is warm and dry with evidence of good perfusion NEUROLOGIC: Alert and oriented x 3 no gross focal deficit MUSKULOSKELETAL: No deformities and no limitation range of motion PSYCHIATRIC: Normal mood and affect no mental status examination I - Labs CBC & Chem 7: 09/20/23 08:25 09/20/23 08:25 Labs: Abnormal Lab Results - Last 24 Hours (Table) 09/19/23 09/20/23 09/20/23 Range/Units 20:36 06:31 08:25 WBC 10.7 H (3.8-10.6) k/uL RBC 3.65 L (4.30-5.90) m/uL Hgb 11.7 L (13.0-17.5) gm/dL Hct 35.5 L (39.0-53.0) % Plt Count 128 L (150-450) k/uL Neutrophils # 9.0 H (1.3-7.7) k/uL Lymphocytes # 0.7 L (1.0-4.8) k/uL Sodium (137-145) mmol/L BUN (9-20) mg/dL Glucose (74-99) mg/dL POC Glucose (mg/dL) 113 H 111 H (70-110) mg/dL Total Protein (6.3-8.2) g/dL Albumin (3.5-5.0) g/dL 09/20/23 Range/Units 08:25 WBC (3.8-10.6) k/uL RBC (4.30-5.90) m/uL Hgb (13.0-17.5) gm/dL Hct (39.0-53.0) % Plt Count (150-450) k/uL Neutrophils # (1.3-7.7) k/uL Lymphocytes # (1.0-4.8) k/uL Sodium 134 L (137-145) mmol/L BUN 30 H (9-20) mg/dL Glucose 114 H (74-99) mg/dL POC Glucose (mg/dL) (70-110) mg/dL Total Protein 5.2 L (6.3-8.2) g/dL Albumin 3.3 L (3.5-5.0) g/dL Assessment and Plan Assessment: Impression: Coronary artery disease/symptomatic with unstable angina, status post single- vessel off-pump CABG postoperative day #3 History of previous TX and multiple stents placement Generalized anxiety disorder Dyslipidemia Benign essential hypertension Peripheral vessel occlusive disease Medical noncompliance Family history of premature coronary artery disease Recommendation: Continue maximal medical therapy with beta-blockers Plavix statin and aspirin Continue ambulation Continue incentive spirometry Continue GI and DVT prophylaxis Continue pain medications as needed Continue to monitor blood sugars and address accordingly Possible discharge planning in the next 24 to 48 hours Will continue to follow Time with Patient: Less than 30
--- NOTE | 2023-09-20 13:17 | P.PN ---
Subjective Progress Note Date: 09/20/23 Hospital Course: Patient is a 58-year-old male with history of CAD status post stents, hyperten velasquez, hyperlipidemia, nicotine dependence, anxiety with depression and nightly cannabis use. He presented to the emergency department on 09/08/2023 secondary to a chief complaint of chest pain. He underwent evaluation in the emergency department. Vital signs upon arrival show blood pressure 160/90, heart rate 80, respiratory rate 18, temp 98.6 F, and SpO2 of 96% on room air. EKG was completed showing normal sinus rhythm at 68 bpm with prominent Q waves in inferior leads. Chest x-ray was negative for acute cardiopulmonary process. Completed and reviewed. CBC revealed leukocytosis with WBC count of 12.4. Coagulation profile normal findings. BMP unremarkable. Magnesium was 1.9. Liver profile unremarkable. Troponin was negative at less than 0.012. Patient was admitted under services with consultation to cardiology. Troponins trended overnight resulting at less than 0.012 x 3 draws. Lipid profile revealed elevated triglycerides of 164 and total cholesterol of 203.00. Hemoglobin A1c 5.5%. Patient went for a cardiac stress test which was positive for reversible ischemia. Cardiology then took patient for cardiac catheterization revealing 80% stenosis of mid LAD and 100% stenosis of RCA. Cardiology stated patient is not an appropriate candidate for PCI with stenting as he has shown evidence of in-stent restenosis and consulted cardiothoracic surgery for evaluation for b ypass. Echocardiogram completed showing a preserved EF of 50 to 55% with no significant valvular or structural abnormalities reported. Underwent CABG on 09/16. Currently recovering in medical ICU. Extubated. Patient improving well. Now on stepdown unit. Likely discharge to rehab on Saturday. Subjective: Patient seen and examined at bedside. No acute events overnight. Able to urinate, ambulating with some assistance. Pertinent positives and negatives as discussed above, a complete review of systems was performed and all other systems are negative. Vitals Signs Reviewed. General: Nontoxic, no distress Derm: Warm, dry Head: Atraumatic, normocephalic, symmetric Eyes: EOMI, no lid lag, anicteric sclera Mouth: No lip lesion, mucus membranes moist Cardiovascular: S1S2 reg, no murmur Lungs: CTA bilateral, no rhonchi, no rales, no accessory muscle use Abdominal: Soft, nontender, no appreciable organomegaly Ext: No gross muscle atrophy, no edema, no contractures Neuro: CN II to XII grossly normal Psych: Alert and oriented, cooperative Data Reviewed Today: Pertinent Labs: WBC 10.7, hemoglobin 11.7, platelet 128, sodium 134, creatinine 0.94, blood sugars range between 10 6-1 14 Imaging: Chest x-ray independently interpreted, shows interstitial opacities improved from yesterday Assessment and Plan: Occlusive coronary artery disease status post CABG Chest pain, secondary to above CAD with previous stenting x7 Hypertension Hyperlipidemia Nicotine dependence Anxiety Hyperglycemia -Thoracic surgery note reviewed, continue Lopressor, losartan decreased -Sliding scale insulin, monitor for hypoglycemia, patient tolerating oral intake -Pulmonology note reviewed, continue current therapy -Cardiology note reviewed, continue current treatment -PT/OT -Continue telemetry monitoring -Continue aspirin 325 daily, Plavix 75 mg daily, metoprolol 25 every 8 hours, losartan 25 daily, atorvastatin 40, amiodarone 400 twice daily -Pain control with oral Tylenol as needed, oral Oxy as needed,, IV Dilaudid as needed monitor for sedation, also on IV Toradol every 6 hours scheduled -Recommend smoking cessation during this admission, patient declined nicotine patch Pulmonary nodule -CT chest was completed and radiology report reviewed showing a right upper lobe 4 mm pulmonary nodule. Patient high risk secondary to smoking history will need repeat CT chest in 12 months. Homelessness -public health social worker/case management following DVT ppx: Subcu heparin Code status: Full code Anticipated discharge place: Pending clinical course Anticipated discharge time: Possibly Saturday Objective - Vital Signs Vital signs: Vital Signs Temp 98.1 F 09/20/23 08:18 Pulse 87 09/20/23 12:00 Resp 16 09/20/23 10:03 BP 99/65 09/20/23 08:18 Pulse Ox 95 09/20/23 08:47 FiO2 50 09/17/23 15:00 Intake & Output 09/19/23 09/20/23 09/20/23 18:59 06:59 18:59 Intake Total 207 118 Output Total 335 200 Balance -128 -200 118 Weight 60 kg Intake: IV 207 Lactated Ringers 1,000 ml 180 @ 20 mls/hr IV .Q24H [facility] Rx#:[id number] Pressure Bag 27 Oral 118 Output: Chest Tube Drainage 50 Left Pleural 30 Medistinal x2 20 Urine 285 200 Other: Voiding Method Indwelling Catheter Urinal Urinal # Voids 1 1 # Bowel Movements 1 1 ABP, PAP, CO, CI - Last Documented Arterial Blood Pressure 120/95 Pulmonary Artery Pressure 29/10 Cardiac Output 6.9 Cardiac Index 4.3 - Labs CBC & Chem 7: 09/20/23 08:25 09/20/23 08:25 Labs: Abnormal Lab Results - Last 24 Hours (Table) 09/19/23 09/20/23 09/20/23 Range/Units 20:36 06:31 08:25 WBC 10.7 H (3.8-10.6) k/uL RBC 3.65 L (4.30-5.90) m/uL Hgb 11.7 L (13.0-17.5) gm/dL Hct 35.5 L (39.0-53.0) % Plt Count 128 L (150-450) k/uL Neutrophils # 9.0 H (1.3-7.7) k/uL Lymphocytes # 0.7 L (1.0-4.8) k/uL Sodium (137-145) mmol/L BUN (9-20) mg/dL Glucose (74-99) mg/dL POC Glucose (mg/dL) 113 H 111 H (70-110) mg/dL Total Protein (6.3-8.2) g/dL Albumin (3.5-5.0) g/dL 09/20/23 Range/Units 08:25 WBC (3.8-10.6) k/uL RBC (4.30-5.90) m/uL Hgb (13.0-17.5) gm/dL Hct (39.0-53.0) % Plt Count (150-450) k/uL Neutrophils # (1.3-7.7) k/uL Lymphocytes # (1.0-4.8) k/uL Sodium 134 L (137-145) mmol/L BUN 30 H (9-20) mg/dL Glucose 114 H (74-99) mg/dL POC Glucose (mg/dL) (70-110) mg/dL Total Protein 5.2 L (6.3-8.2) g/dL Albumin 3.3 L (3.5-5.0) g/dL
[2023-09-20 16:54] LABS: Glucose,Whole Blood 121 mg/dL (70-110)
--- NOTE | 2023-09-20 19:14 | XR ---
EXAMINATION TYPE: XR chest 2V DATE OF EXAM: 09/20/2023 COMPARISON: 09/19/2023 INDICATION: Postop CABG TECHNIQUE: Frontal and lateral views of the chest are obtained. FINDINGS: The heart size is normal. The pulmonary vasculature is normal. Peripheral infiltrates are present bilaterally. Correlate for atelectasis or pneumonia. Findings are developing from comparison.. Chest tubes been removed. Minimal right pleural effusion may be present. Sternotomy wires are in the midline. Mediastinal tube has been removed. IMPRESSION: 1. Mild peripheral infiltrates. Correlate for atelectasis. Right peripheral pneumonia should be consi dered. 2. Removal of prior lines and catheters.
[2023-09-20 20:05] LABS: Glucose,Whole Blood 121 mg/dL (70-110)
[2023-09-21 06:21] LABS: Glucose,Whole Blood 102 mg/dL (70-110)
--- NOTE | 2023-09-21 07:15 | P.PN ---
Subjective Progress Note Date: 09/21/23 Principal diagnosis: Coronary artery disease, unstable angina. History of multiple myocardial infarctions with multiple stents, hypertension, hyperlipidemia, current tobacco dependence with cessation upon admission to the hospital, nightly marijuana use for anxiety, previous heavy EtOH use with admission earlier this year to [place], does admit to still drinking about 2 beers a month, peripheral arterial disease with claudication, left internal carotid stenosis 100% with possible TIA in the past, medical noncompliance, family history of premature coronary artery disease POD #4 off pump coronary artery bypass grafting x 1, left internal thoracic artery (in-situ) to left anterior descending coronary artery, endoscopic left greater saphenous vein harvest, left atrial appendage ligation using #35mm AtriClip, graft flow measurements using the Sellf-Stim flow meter system, trans- esophageal echo The patient was seen and examined this morning sitting up in recliner on the cardiac stepdown unit in no acute distress. States postsurgical pain is controlled on current medication regimen. Currently in sinus rhythm, hemodynamically stable. Currently on room air, able to achieve 4763-5138 mL on his incentive spirometry. Patient has been ambulatory in the hallway with assistance, received postoperative shower yesterday. The main concern at this point is discharge planning as patient was living in a hotel prior to surgery, he may not go to a hotel at discharge. Social work is working on finding placement but his insurance is unfortunately a prohibitive factor. Chest x-ray reviewed, labs pending. Objective - Vital Signs Vital signs: Vital Signs Temp 98.3 F 09/21/23 04:45 Pulse 80 09/21/23 04:45 Resp 20 09/21/23 04:45 BP 127/79 09/21/23 04:45 Pulse Ox 95 09/21/23 04:45 FiO2 50 09/17/23 15:00 Intake & Output 09/20/23 09/21/23 09/21/23 18:59 06:59 18:59 Intake Total 208 Output Total 695 Balance 208 -695 Weight 59.6 kg Intake: Oral 208 Output: Urine 695 Other: Voiding Method Urinal Toilet Urinal # Voids 1 # Bowel Movements 1 ABP, PAP, CO, CI - Last Documented Arterial Blood Pressure 120/95 Pulmonary Artery Pressure 29/10 Cardiac Output 6.9 Cardiac Index 4.3 - Exam CONSTITUTIONAL: Cooperative, no acute distress RESPIRATORY: Lungs sounds diminished bilaterally. Respirations even, nonlabored. Currently on room air with oxygen saturation 95%. Able to achieve 1047-6463 mL on incentive spirometry. Strong nonproductive cough. CARDIOVASCULAR: S1, S2 present. Regular rate and rhythm, sinus rhythm on telemetry. Sternum stable. Palpable peripheral pulses bilaterally. No edema present. No calf pain or tenderness noted. Heart hugger in place with patient demonstrating appropriate use. Antiembolism stockings, SCDs present. GASTROINTESTINAL: Abdomen soft, nontender, nondistended. Active bowel sounds present 4 quadrants. Tolerating diet. Positive bowel movement 09/19 GENITOURINARY: Continues to void INTEGUMENTARY: Skin is warm and dry with evidence of good perfusion. Anterior chest incision well approximated. Left lower extremity EVH site well approximated without redness or drainage. NEUROLOGIC: Cranial nerves II through XII intact MUSKULOSKELETAL: Able to move all extremities, strength equal bilaterally, gait normal PSYCHIATRIC: Alert and oriented to person place and time, appropriate affect, intact judgment and insight - Allied health notes Allied health notes reviewed: nursing - Labs CBC & Chem 7: 09/20/23 08:25 09/20/23 08:25 Labs: Abnormal Lab Results - Last 24 Hours (Table) 09/20/23 09/20/23 09/20/23 Range/Units 08:25 08:25 16:53 WBC 10.7 H (3.8-10.6) k/uL RBC 3.65 L (4.30-5.90) m/uL Hgb 11.7 L (13.0-17.5) gm/dL Hct 35.5 L (39.0-53.0) % Plt Count 128 L (150-450) k/uL Neutrophils # 9.0 H (1.3-7.7) k/uL Lymphocytes # 0.7 L (1.0-4.8) k/uL Sodium 134 L (137-145) mmol/L BUN 30 H (9-20) mg/dL Glucose 114 H (74-99) mg/dL POC Glucose (mg/dL) 121 H (70-110) mg/dL Total Protein 5.2 L (6.3-8.2) g/dL Albumin 3.3 L (3.5-5.0) g/dL 06/21/24 Range/Units 20:03 WBC (3.8-10.6) k/uL RBC (4.30-5.90) m/uL Hgb (13.0-17.5) gm/dL Hct (39.0-53.0) % Plt Count (150-450) k/uL Neutrophils # (1.3-7.7) k/uL Lymphocytes # (1.0-4.8) k/uL Sodium (137-145) mmol/L BUN (9-20) mg/dL Glucose (74-99) mg/dL POC Glucose (mg/dL) 121 H (70-110) mg/dL Total Protein (6.3-8.2) g/dL Albumin (3.5-5.0) g/dL - Imaging and Cardiology Chest x-ray: image reviewed Assessment and Plan Assessment: Coronary artery disease, unstable angina, status post single-vessel off-pump CABG Multiple myocardial infarctions with multiple stents Hypertension Hyperlipidemia, cholesterol 203, LDL 123 Current tobacco dependence with cessation upon admission to the hospital, FEV1 91% of predicted Nightly marijuana use for anxiety Previous heavy EtOH use with admission earlier this year to [place], does admit to still drinking about 2 beers a month Peripheral arterial disease with claudication, right TRELL 0.71, left TRELL 0.64 Left internal carotid stenosis 100% with possible TIA in the past Medical noncompliance Family history of premature coronary artery disease Plan: Continue to maximize medical therapy with aspirin, statin, Plavix, beta-ingrid Continue losartan for afterload reduction Continue amiodarone for A-fib prophylaxis, patient has had no A-fib at this point, will taper weekly Encourage incentive spirometry use 10 times every hour while awake. Bronchodilators per pulmonology Increase activity, ambulate as tolerated. PT/OT/cardiac rehab consulted Will monitor labs and x-rays every other day, electrolyte replacement per protocol GI/DVT prophylaxis Insulin management per internal medicine Pain control with current medication regimen Continue to monitor and record strict accurate intake and output Daily weights Discharge planning in progress. Anticipate discharge once placement has been found and insurance authorization obtained More recommendations to follow
[2023-09-21 08:54] LABS: HCT 31.9 % (39.0-53.0); HGB 10.8 gm/dL (13.0-17.5); MCH 32.8 pg (25.0-35.0); MCHC 33.9 g/dL (31.0-37.0); MCV 96.7 fL (80.0-100.0); Mean Platelet Volume 9.4; Platelet Count 154 k/uL (150-450); RDW 13.9 % (11.5-15.5)
[2023-09-21 09:06] LABS: African American GFR (CKD) >90 (>60 ml/min/1.73 sqM); Anion Gap 5 mmol/L; Blood Urea Nitrogen 26 mg/dL (9-20); Calcium 8.6 mg/dL (8.4-10.2); Carbon Dioxide 28 mmol/L (22-30); Chloride 103 mmol/L (98-107); Glucose 90 mg/dL (74-99); Non-African American GFR(CKD) >90 (>60 ml/min/1.73 sqM); Potassium 4.3 mmol/L (3.5-5.1); Sodium 136 mmol/L (137-145)
--- NOTE | 2023-09-21 09:41 | XR ---
EXAMINATION TYPE: XR chest 2V DATE OF EXAM: 09/21/2023 COMPARISON: 09/20/2023 INDICATION: Post cardiac surgery TECHNIQUE: Frontal and lateral views of the chest are obtained. FINDINGS: The heart size is normal. Sternotomy wires are present from previous CABG. The pulmonary vasculature is normal. Minimal infiltrate may be present, improved. Some streak opacities in the left base stable from selene rison.. IMPRESSION: 1. Improving mild infiltrates. Consider resolving atelectasis. 2. Some residual streaky atelectasis or pneumonia in the left base remains present and stable. Contin ued follow-up is recommended.
--- NOTE | 2023-09-21 11:27 | P.PN ---
Subjective Progress Note Date: 09/21/23 Principal diagnosis: off-pump coronary artery bypass grafting x 1 utilizing a CARRILLO to the LAD with a left atrial appendage ligation. Postoperative day #4 58-year-old male patient known history of coronary artery disease with previous coronary stenting along with hypertension hyperlipidemia and previous history of tobacco marijuana smoking and previous history of heavy alcohol drinking along with history of PAD, carotid artery stenosis on the left and a strong family history of coronary disease. The patient presented with complaints of chest pain and the patient underwent a cardiac catheterization the patient was found to have 80% stenosis of the LAD in its mid segment, 100% ostial RCA, 100% in- stent restenosis of the RCA and right to left collaterals and filling of the PDA and PL branches. The patient is currently being worked up for coronary artery bypass surgery. The patient had negative troponins. Renal function is stable with a normal creatinine, normal electrolytes, normal CBC and the viral screen was negative and the chest x-ray showed no acute cardiopulmonary abnormalities and the patient further had a CT scan of the chest on 09/11/2023 that showed no acute thoracic process, 4 mm right upper lobe pulmonary nodule, moderate to severe three-vessel coronary disease along with mild atherosclerotic disease involving the aorta and its branches and moderate atherosclerotic disease involving the bilateral renal arteries and mild background COPD. Echo done on 09/11/2023 showed preserved LV function along with segmental wall motion abnormalities involving the inferior and septal wall and the carotid Dopplers showed completely occluded left internal carotid artery without any flow. The patient is currently on room air oxygen with a pulse ox of 95%. The patient was seen by cardiothoracic surgery. He is not normal sinus rhythm. Plan for bypass surgery on 09/17/2023. 09/13/2023, the patient remains free of any chest pain. No specific complaints. The plan is to undergo coronary bypass surgery next week. The patient denies having any new complaints otherwise. Surgery will be done by Dr. Dee. Hemoglobin is at least 15.5 with a white cell count of 8.9. Electrolytes are within normal limits. 09/14/2023, no new complaints and the patient is still scheduled to undergo surgery on 09/17/2023. Ambulating. Incentive spirometer. No complaints. Cardiac rhythm remained sinus. No labs from today. Medications remain unchanged. The patient is on room air oxygen. 09/15/2023, patient is on the 6 floor. Sitting up on the chair. Tolerating diet. No chest pain. Using incentive spirometer. Cardiac rhythm is sinus. No signs of any delirium tremens. Labs from 09/13/2023 were reviewed. No other labs for today. The patient is seen today September 16, 2023 in follow-up on the regular medical floor. He is awake and alert in no acute distress. Sitting up in bed. He denies any shortness of breath, cough or congestion. He is maintaining good O2 saturations in the 90s on room air. He is working well with his incentive spirometer. He denies any chest pain or palpitations. White count 9.0. Hemoglobin 16.2. Platelets 203. Sodium 137. Potassium 4.4. Bicarb 21. BUN 21. Creatinine 0.9. Glucose 90. He remains on heparin for DVT prophylaxis. The patient is seen today September 17, 2023 postoperatively in the intensive care unit. He did undergo an off-pump coronary artery bypass grafting x 1 utilizing a CARRILLO to the LAD with a left atrial appendage ligation. Postoperative day #0. He is intubated on the mechanical ventilator and assist-control mode at a rate of 16, tidal volume 450, FiO2 100% and a PEEP of 5. Arterial blood gases revealed a PaO2 of 349, P CO2 of 45 and a pH of 7.37. White count 11.9. Hemoglobin 13.2. Platelets 137. Sodium 138. Potassium 3.9. Bicarb 24. BUN 17. Creatinine 0.67. Glucose 116. AST 26. ALT 26. Chest x-ray reveals bilateral platelike atelectasis left greater than right. Small left apical pneumothorax may be present. He does have mediastinal and left chest tubes present. Donald-Nataly catheter present. Endotracheal and nasogastric tubes in place. He is currently sedated on propofol at 20 mcg/kg/min being transition to Precedex currently at 0.6 mcg/kg/h. He is on clevidipine at 2 mg an hour. Nitroglycerin drip at 5 mcg/min. Insulin drip at 1 unit/h. Amiodarone drip at 1 mg/min. Lactated Ringer's at 50 MLS per hour. Cardiac output is 3.5. Cardiac index 2.2. PA pressures 27/11. CVP of 3. Patient was reevaluated today on 09/18/2023, patient is POD #1 off pump coronary artery bypass grafting x 1, left internal thoracic artery (in-situ) to left anterior descending coronary artery, endoscopic left greater saphenous vein harvest, left atrial appendage ligation using #35mm AtriClip, graft flow measurements using the Medi-Stim flow meter system, trans-esophageal echo, patient was extubated yesterday at 1530. Patient is doing quite well, he is in sinus rhythm, hemodynamically stable, on IV amiodarone at 0.5 mg/min, he is on nitroglycerin drip as well as Cleviprex drip at 20 mg/h. Cardiac output is 6.9 cardiac index is 4.3, patient is receiving insulin at 1 unit/h. LR at 50 cc/h. Patient has mostly as expected postoperative pain, receiving Dilaudid as needed for pain control. Continues to have right IJ Donald-Nataly catheter, mediastinal/left pleural chest tubes, and again does not seem to be uncomfortableWBC count is 18.2 hemoglobin 14.3. Basic metabolic profile is normal with a relatively normal renal profile. Chest x-ray is mostly showing as expected postoperative changes no acute process otherwise as noted Patient was evaluated today on 09/19/2023, POD #2 off pump coronary artery bypass grafting x 1, left internal thoracic artery (in-situ) to left anterior descending coronary artery, endoscopic left greater saphenous vein harvest, left atrial appendage ligation using #35mm AtriClip, graft flow measurements using the Medi-Stim flow meter system, trans-esophageal echo patient is sitting in a recliner, doing well, relatively asymptomatic, pain seems to be fairly under control with oxycodone and Dilaudid. Patient is heme medically stable, on 2 L nasal cannula, still doing poorly with incentive spirometry achieving no more than 750 cc patient continues to have multiple catheters and lines, this will likely be removed in the next 24 to 48 hours. Overall the patient is improving, and his clinical course is as expected. WBC count is 18.3 hemoglobin is 13.3 basic metabolic profile is normal and renal profile is normal. Chest x-ray today showed mostly postoperative cardiac surgery changes otherwise negative Reevaluated today on 09/20/2023, patient is now postoperative day #3. Continues to do quite well, relatively asymptomatic except for some postsurgical pain. Patient is on room air, he is not in any distress. WBC count is 10.7 hemoglobin 11.7 basic metabolic profile is normal and renal profile is normal. Chest x-ray showed bibasilar atelectasis. Patient was evaluated today on 09/21/2023, he is now postoperative day #4. Patient is sitting in the recliner, he is now in the stepdown unit, has some surgical pain which is expected, fairly well-controlled. Achieving about 1500 cc on his incentive spirometry, patient has been ambulating with assistance in the hallway. Patient is basically homeless, he may have to be discharged to a hotel at discharge and that will likely happen on Saturday. His chest x-ray is showing mostly bibasilar atelectasis, l labs were reviewed, Relatively normal CBC and normal basic metabolic profile, normal renal profile Objective - Vital Signs Vital signs: Vital Signs Temp 98.0 F 09/21/23 08:07 Pulse 69 09/21/23 11:01 Resp 18 09/21/23 11:01 BP 107/70 09/21/23 11:01 Pulse Ox 96 09/21/23 11:01 FiO2 50 09/17/23 15:00 Intake & Output 09/20/23 09/21/23 09/21/23 18:59 06:59 18:59 Intake Total 208 118 Output Total 695 200 Balance 208 -695 -82 Weight 59.6 kg Intake: Oral 208 118 Output: Urine 695 200 Other: Voiding Method Urinal Toilet Toilet Urinal Urinal # Voids 1 # Bowel Movements 1 ABP, PAP, CO, CI - Last Documented Arterial Blood Pressure 120/95 Pulmonary Artery Pressure 29/10 Cardiac Output 6.9 Cardiac Index 4.3 - Exam General:: Reveals a 58-year-old white male in no distress. On room air RESPIRATORY: Good breath sound bilaterally no crackles rhonchi or wheezes CARDIOVASCULAR: Distant S1-S2, no S3 gallop, no murmur. GASTROINTESTINAL: Abdomen is soft nontender no megaly no rebound no guarding. INTEGUMENTARY: Skin is warm and dry with evidence of good perfusion NEUROLOGIC: Alert and oriented x 3 no gross focal deficit MUSKULOSKELETAL: No deformities and no limitation range of motion PSYCHIATRIC: Normal mood and affect no mental status examination I - Labs CBC & Chem 7: 09/21/23 07:12 09/21/23 07:12 Labs: Abnormal Lab Results - Last 24 Hours (Table) 09/20/23 09/20/23 09/21/23 Range/Units 16:53 20:03 07:12 RBC 3.30 L (4.30-5.90) m/uL Hgb 10.8 L (13.0-17.5) gm/dL Hct 31.9 L (39.0-53.0) % Sodium (137-145) mmol/L BUN (9-20) mg/dL POC Glucose (mg/dL) 121 H 121 H (70-110) mg/dL 09/21/23 Range/Units 07:12 RBC (4.30-5.90) m/uL Hgb (13.0-17.5) gm/dL Hct (39.0-53.0) % Sodium 136 L (137-145) mmol/L BUN 26 H (9-20) mg/dL POC Glucose (mg/dL) (70-110) mg/dL Assessment and Plan Assessment: Impression: Coronary artery disease/symptomatic with unstable angina, status post single- vessel off-pump CABG postoperative day #4 History of previous TN and multiple stents placement Generalized anxiety disorder Dyslipidemia Benign essential hypertension Peripheral vessel occlusive disease Medical noncompliance Family history of premature coronary artery disease Recommendation: Continue maximal medical therapy with beta-blockers Plavix statin and aspirin Continue ambulation Continue incentive spirometry Continue GI and DVT prophylaxis Continue pain medications as needed Discharge planning in the next 48 hours Will continue to follow Time with Patient: Less than 30
[2023-09-21 11:43] LABS: Glucose,Whole Blood 88 mg/dL (70-110)
--- NOTE | 2023-09-21 11:44 | P.PN ---
Subjective Progress Note Date: 09/21/23 Hospital Course: Patient is a 58-year-old male with history of CAD status post stents, hyperten velasquez, hyperlipidemia, nicotine dependence, anxiety with depression and nightly cannabis use. He presented to the emergency department on 09/08/2023 secondary to a chief complaint of chest pain. He underwent evaluation in the emergency department. Vital signs upon arrival show blood pressure 160/90, heart rate 80, respiratory rate 18, temp 98.6 F, and SpO2 of 96% on room air. EKG was completed showing normal sinus rhythm at 68 bpm with prominent Q waves in inferior leads. Chest x-ray was negative for acute cardiopulmonary process. Completed and reviewed. CBC revealed leukocytosis with WBC count of 12.4. Coagulation profile normal findings. BMP unremarkable. Magnesium was 1.9. Liver profile unremarkable. Troponin was negative at less than 0.012. Patient was admitted under services with consultation to cardiology. Troponins trended overnight resulting at less than 0.012 x 3 draws. Lipid profile revealed elevated triglycerides of 164 and total cholesterol of 203.00. Hemoglobin A1c 5.5%. Patient went for a cardiac stress test which was positive for reversible ischemia. Cardiology then took patient for cardiac catheterization revealing 80% stenosis of mid LAD and 100% stenosis of RCA. Cardiology stated patient is not an appropriate candidate for PCI with stenting as he has shown evidence of in-stent restenosis and consulted cardiothoracic surgery for evaluation for b ypass. Echocardiogram completed showing a preserved EF of 50 to 55% with no significant valvular or structural abnormalities reported. Underwent CABG on 09/16. Currently recovering in medical ICU. Extubated. Patient improving well. Now on stepdown unit. Likely discharge to rehab on Saturday. Subjective: Patient seen and examined at bedside. No acute events overnight. Able to urinate, ambulating with some assistance. Pertinent positives and negatives as discussed above, a complete review of systems was performed and all other systems are negative. Vitals Signs Reviewed. General: Nontoxic, no distress Derm: Warm, dry Head: Atraumatic, normocephalic, symmetric Eyes: EOMI, no lid lag, anicteric sclera Mouth: No lip lesion, mucus membranes moist Cardiovascular: S1S2 reg, no murmur Lungs: CTA bilateral, no rhonchi, no rales, no accessory muscle use Abdominal: Soft, nontender, no appreciable organomegaly Ext: No gross muscle atrophy, no edema, no contractures Neuro: CN II to XII grossly normal Psych: Alert and oriented, cooperative Data Reviewed Today: Pertinent Labs: WBC 10, hemoglobin 10.8, creatinine 0.86, magnesium 2.0 Imaging: Chest x-ray independently interpreted, shows interstitial opacities improved from yesterday Assessment and Plan: Occlusive coronary artery disease status post CABG Chest pain, secondary to above CAD with previous stenting x7 Hypertension Hyperlipidemia Nicotine dependence Anxiety Hyperglycemia -Thoracic surgery note reviewed, continue Lopressor, losartan decreased -Sliding scale insulin, monitor for hypoglycemia, patient tolerating oral intake -Pulmonology note reviewed, continue current therapy -Cardiology note reviewed, continue current treatment -PT/OT -Continue telemetry monitoring -Continue aspirin 325 daily, Plavix 75 mg daily, metoprolol 25 every 8 hours, losartan 25 daily, atorvastatin 40, amiodarone 400 twice daily -Pain control with oral Tylenol as needed, oral Oxy as needed,, IV Dilaudid as needed monitor for sedation, also on IV Toradol every 6 hours scheduled -Recommend smoking cessation during this admission, patient declined nicotine patch Pulmonary nodule -CT chest was completed and radiology report reviewed showing a right upper lobe 4 mm pulmonary nodule. Patient high risk secondary to smoking history will need repeat CT chest in 12 months. 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 DVT ppx: Subcu heparin Code status: Full code Anticipated discharge place: Pending clinical course Anticipated discharge time: Possibly Saturday Objective - Vital Signs Vital signs: Vital Signs Temp 98.0 F 09/21/23 08:07 Pulse 69 09/21/23 11:01 Resp 18 09/21/23 11:01 BP 107/70 09/21/23 11:01 Pulse Ox 96 09/21/23 11:01 FiO2 50 09/17/23 15:00 Intake & Output 09/20/23 09/21/23 09/21/23 18:59 06:59 18:59 Intake Total 208 118 Output Total 695 200 Balance 208 -695 -82 Weight 59.6 kg Intake: Oral 208 118 Output: Urine 695 200 Other: Voiding Method Urinal Toilet Toilet Urinal Urinal # Voids 1 # Bowel Movements 1 ABP, PAP, CO, CI - Last Documented Arterial Blood Pressure 120/95 Pulmonary Artery Pressure 29/10 Cardiac Output 6.9 Cardiac Index 4.3 - Labs CBC & Chem 7: 09/21/23 07:12 09/21/23 07:12 Labs: Abnormal Lab Results - Last 24 Hours (Table) 09/20/23 09/20/23 09/21/23 Range/Units 16:53 20:03 07:12 RBC 3.30 L (4.30-5.90) m/uL Hgb 10.8 L (13.0-17.5) gm/dL Hct 31.9 L (39.0-53.0) % Sodium (137-145) mmol/L BUN (9-20) mg/dL POC Glucose (mg/dL) 121 H 121 H (70-110) mg/dL 09/21/23 Range/Units 07:12 RBC (4.30-5.90) m/uL Hgb (13.0-17.5) gm/dL Hct (39.0-53.0) % Sodium 136 L (137-145) mmol/L BUN 26 H (9-20) mg/dL POC Glucose (mg/dL) (70-110) mg/dL
--- NOTE | 2023-09-21 12:52 | P.PN ---
Subjective HISTORY OF PRESENT ILLNESS: Patient examined this morning the bedside. He is sitting on the side of the bed. Patient currently denies any chest pain or pressure. He denies any shortness of breath. He does report feeling anxious about his surgery tomorrow. Echocardiogram completed revealing ejection fraction 50 to 55%. Vital signs are stable. September 18: The patient is sitting up in the chair, complaining of incisional chest discomfort and had some diaphoresis. His breathing is relatively stable. He continues to be in sinus mechanism. He denies any dizziness or palpitations. He has no significant nausea. His urinary output is stable. There is no episodes of malignant arrhythmia. Hemodynamically he is stable on no vasopressors. Medications: Aspirin, Cordarone 400 mg twice a day, Lipitor 40 mg daily, Plavix 75 mg daily, losartan 50 mg daily, metoprolol tartrate 25 mg 3 times daily. LAB: Hemoglobin 13.3, BUN 21, creatinine 0.90. Potassium 4.7. 09/19 And has been transferred out of the intensive care unit and seen today on the cardiac stepdown unit. Patient states he is feeling okay overall feeling better. He is using incentive spirometry frequently. He is working with physical therapy and walking in the hallway. His appetite is slightly better from yesterday but not back to normal. Repeat chest x-ray completed this morning shows no acute concerns. Blood pressure 99/65, heart rate 88, pulse ox 93% on room air. He is been afebrile. WBC 10.7, hemoglobin 11.7, platelet count 128. Potassium 4.2, BUN 30 creatinine 0.94. 09/21/2023 Patient examined this morning at the bedside. Patient denies chest pain or pr essure. He denies shortness of breath. Telemetry reveals sinus mechanism. Vital signs stable. Most recent blood pressure 107/70. Discharge planning continues and attempting to find placement for the patient as he was living in a hotel. Patient states he was up ambulating this morning and did have some nausea which was improved with Zofran. PHYSICAL EXAM: VITAL SIGNS: Reviewed. GENERAL: Well-developed in no acute distress. NECK: Supple. No JVD or thyromegaly LUNGS: Respirations even and unlabored. Lungs essentially clear to auscultation bilaterally. HEART: Regular rate and rhythm. S1 and S2 heard. EXTREMITIES: Normal range of motion. No clubbing or cyanosis. Peripheral pulses intact. No lower extremity edema ASSESSMENT: Chest pain s/p cardiac catheterization revealing 80% mid LAD stenosis, 100% ostial RCA stenosis, prior stenting of RCA with 100% in-stent restenosis Status post single-vessel CABG, CARRILLO to LAD Chronically occluded RCA, not felt to be candidate for bypass grafting Coronary artery disease with history of multiple stents Hypertension Hyperlipidemia Peripheral arterial disease Left internal carotid stenosis, 100% History of alcohol abuse with admission earlier this year to [facility] [place] [facility] Nicotine dependence Marijuana use Family history of premature coronary artery disease PLAN: Continue postoperative management per CT surgery Continue current cardiac medications Continue telemetry monitoring. Continue to monitor blood pressure Smoking cessation recommended. Patient to be referred to [place] quit line upon discharge. Discharge planning ongoing. Case management/social work looking for placement at discharge. Further recommendations pending patient course Nurse practitioner note has been reviewed by physician. Signing provider agrees with the documented findings, assessment, and plan of care documented by [employer] as a scribe. Objective - Vital Signs Vital signs: Vital Signs Temp 98.0 F 09/21/23 08:07 Pulse 82 09/21/23 09:32 Resp 18 09/21/23 09:32 BP 107/67 09/21/23 08:07 Pulse Ox 96 09/21/23 08:07 FiO2 50 09/17/23 15:00 Intake & Output 09/20/23 09/21/23 09/21/23 18:59 06:59 18:59 Intake Total 208 Output Total 695 Balance 208 -695 Weight 59.6 kg Intake: Oral 208 Output: Urine 695 Other: Voiding Method Urinal Toilet Toilet Urinal Urinal # Voids 1 # Bowel Movements 1 ABP, PAP, CO, CI - Last Documented Arterial Blood Pressure 120/95 Pulmonary Artery Pressure 29/10 Cardiac Output 6.9 Cardiac Index 4.3 - Labs CBC & Chem 7: 09/21/23 07:12 09/21/23 07:12 Labs: Abnormal Lab Results - Last 24 Hours (Table) 09/20/23 09/20/23 09/21/23 Range/Units 16:53 20:03 07:12 RBC 3.30 L (4.30-5.90) m/uL Hgb 10.8 L (13.0-17.5) gm/dL Hct 31.9 L (39.0-53.0) % Sodium (137-145) mmol/L BUN (9-20) mg/dL POC Glucose (mg/dL) 121 H 121 H (70-110) mg/dL 09/21/23 Range/Units 07:12 RBC (4.30-5.90) m/uL Hgb (13.0-17.5) gm/dL Hct (39.0-53.0) % Sodium 136 L (137-145) mmol/L BUN 26 H (9-20) mg/dL POC Glucose (mg/dL) (70-110) mg/dL
[2023-09-21 16:23] LABS: Glucose,Whole Blood 94 mg/dL (70-110)
[2023-09-21 20:08] LABS: Glucose,Whole Blood 108 mg/dL (70-110)
[2023-09-22 06:18] LABS: Glucose,Whole Blood 104 mg/dL (70-110)
--- NOTE | 2023-09-22 08:03 | P.PN ---
Subjective Progress Note Date: 09/22/23 Principal diagnosis: Coronary artery disease, unstable angina. History of multiple myocardial infarctions with multiple stents, hypertension, hyperlipidemia, current tobacco dependence with cessation upon admission to the hospital, nightly marijuana use for anxiety, previous heavy EtOH use with admission earlier this year to [place], does admit to still drinking about 2 beers a month, peripheral arterial disease with claudication, left internal carotid stenosis 100% with possible TIA in the past, medical noncompliance, family history of premature coronary artery disease POD #5 off pump coronary artery bypass grafting x 1, left internal thoracic artery (in-situ) to left anterior descending coronary artery, endoscopic left greater saphenous vein harvest, left atrial appendage ligation using #35mm AtriClip, graft flow measurements using the [employer] flow meter system, trans- esophageal echo The patient was seen and examined this morning sitting up in recliner on the cardiac stepdown unit in no acute distress. States postsurgical pain is controlled on current medication regimen. Currently in sinus rhythm, hemodynamically stable. Currently on room air, able to achieve 9486-7875 mL on his incentive spirometry. Patient has been ambulatory in the hallway with assistance. The main concern at this point is discharge planning as patient was living in a hotel prior to surgery, he may not go to a hotel at discharge. Social [facility] as they do take his insurance. No other new concerns. Objective - Vital Signs Vital signs: Vital Signs Temp 98.0 F 09/22/23 05:02 Pulse 75 09/22/23 05:02 Resp 16 09/22/23 05:02 BP 136/79 09/22/23 05:02 Pulse Ox 94 L 09/22/23 05:02 FiO2 50 09/17/23 15:00 Intake & Output 09/21/23 09/22/23 09/22/23 18:59 06:59 18:59 Intake Total 236 580 Output Total 200 750 Balance 36 -170 Weight 59.647 kg Intake: IV 400 Pressure Bag 400 Oral 236 180 Output: Urine 200 750 Other: Voiding Method Toilet Toilet Urinal Urinal # Voids 2 # Bowel Movements 1 ABP, PAP, CO, CI - Last Documented Arterial Blood Pressure 120/95 Pulmonary Artery Pressure 29/10 Cardiac Output 6.9 Cardiac Index 4.3 - Exam CONSTITUTIONAL: Cooperative, no acute distress RESPIRATORY: Lungs sounds diminished bilaterally. Respirations even, nonlabored. Currently on room air with oxygen saturation 94%. Able to achieve 0554-1510 mL on incentive spirometry. Strong nonproductive cough. CARDIOVASCULAR: S1, S2 present. Regular rate and rhythm, sinus rhythm on telemetry. Sternum stable. Palpable peripheral pulses bilaterally. No edema present. No calf pain or tenderness noted. Heart hugger in place with patient demonstrating appropriate use. Antiembolism stockings, SCDs present. GASTROINTESTINAL: Abdomen soft, nontender, nondistended. Active bowel sounds present 4 quadrants. Tolerating diet. Positive bowel movement 09/20 GENITOURINARY: Continues to void INTEGUMENTARY: Skin is warm and dry with evidence of good perfusion. Anterior chest incision well approximated. Left lower extremity EVH site well ap proximated without redness or drainage. NEUROLOGIC: Cranial nerves II through XII intact MUSKULOSKELETAL: Able to move all extremities, strength equal bilaterally, gait normal PSYCHIATRIC: Alert and oriented to person place and time, appropriate affect, intact judgment and insight - Labs CBC & Chem 7: 09/21/23 07:12 09/21/23 07:12 Labs: Abnormal Lab Results - Last 24 Hours (Table) 09/21/23 09/21/23 Range/Units 07:12 07:12 RBC 3.30 L (4.30-5.90) m/uL Hgb 10.8 L (13.0-17.5) gm/dL Hct 31.9 L (39.0-53.0) % Sodium 136 L (137-145) mmol/L BUN 26 H (9-20) mg/dL Assessment and Plan Assessment: Coronary artery disease, unstable angina, status post single-vessel off-pump CABG Multiple myocardial infarctions with multiple stents Hypertension Hyperlipidemia, cholesterol 203, LDL 123 Current tobacco dependence with cessation upon admission to the hospital, FEV1 91% of predicted Nightly marijuana use for anxiety Previous heavy EtOH use with admission earlier this year to [place], does admit to still drinking about 2 beers a month Peripheral arterial disease with claudication, right TRELL 0.71, left TRELL 0.64 Left internal carotid stenosis 100% with possible TIA in the past Medical noncompliance Family history of premature coronary artery disease Plan: Continue to maximize medical therapy with aspirin, statin, Plavix, beta-ingrid, Lopressor increased to 50 mg twice daily today Continue losartan for afterload reduction Continue amiodarone for A-fib prophylaxis, patient has had no A-fib at this point, will taper weekly Encourage incentive spirometry use 10 times every hour while awake. Bronchodilators per pulmonology Increase activity, ambulate as tolerated. PT/OT/cardiac rehab consulted Will monitor labs and x-rays every other day, electrolyte replacement per protocol GI/DVT prophylaxis Insulin management per internal medicine Pain control with current medication regimen Continue to monitor and record strict accurate intake and output Daily weights Discharge planning in progress. Anticipate discharge once placement has been found and insurance authorization obtained, hopefully to [facility] on Saturday More recommendations to follow
[2023-09-22] MEDS: METOPROLOL TARTRATE 50 MG TAB PO SCH (08:11)
--- NOTE | 2023-09-22 09:57 | P.PN ---
Subjective HISTORY OF PRESENT ILLNESS: Patient examined this morning the bedside. He is sitting on the side of the bed. Patient currently denies any chest pain or pressure. He denies any shortness of breath. He does report feeling anxious about his surgery tomorrow. Echocardiogram completed revealing ejection fraction 50 to 55%. Vital signs are stable. September 18: The patient is sitting up in the chair, complaining of incisional chest discomfort and had some diaphoresis. His breathing is relatively stable. He continues to be in sinus mechanism. He denies any dizziness or palpitations. He has no significant nausea. His urinary output is stable. There is no episodes of malignant arrhythmia. Hemodynamically he is stable on no vasopressors. Medications: Aspirin, Cordarone 400 mg twice a day, Lipitor 40 mg daily, Plavix 75 mg daily, losartan 50 mg daily, metoprolol tartrate 25 mg 3 times daily. LAB: Hemoglobin 13.3, BUN 21, creatinine 0.90. Potassium 4.7. 09/19 And has been transferred out of the intensive care unit and seen today on the cardiac stepdown unit. Patient states he is feeling okay overall feeling better. He is using incentive spirometry frequently. He is working with physical therapy and walking in the hallway. His appetite is slightly better from yesterday but not back to normal. Repeat chest x-ray completed this morning shows no acute concerns. Blood pressure 99/65, heart rate 88, pulse ox 93% on room air. He is been afebrile. WBC 10.7, hemoglobin 11.7, platelet count 128. Potassium 4.2, BUN 30 creatinine 0.94. 09/21/2023 Patient examined this morning at the bedside. Patient denies chest pain or pr essure. He denies shortness of breath. Telemetry reveals sinus mechanism. Vital signs stable. Most recent blood pressure 107/70. Discharge planning continues and attempting to find placement for the patient as he was living in a hotel. Patient states he was up ambulating this morning and did have some nausea which was improved with Zofran. 09/22/2023 Patient examined this morning. Patient is sitting up in the chair. Patient reports surgical pain /. He denies any chest pain or pressure. He denies any shortness of breath. He has been up ambulating in the [facility]. Telemetry reveals sinus mechanism PHYSICAL EXAM: VITAL SIGNS: Reviewed. GENERAL: Well-developed in no acute distress. NECK: Supple. No JVD or thyromegaly LUNGS: Respirations even and unlabored. Lungs essentially clear to auscultation bilaterally. HEART: Regular rate and rhythm. S1 and S2 heard. EXTREMITIES: Normal range of motion. No clubbing or cyanosis. Peripheral pulses intact. No lower extremity edema ASSESSMENT: Chest pain s/p cardiac catheterization revealing 80% mid LAD stenosis, 100% ostial RCA stenosis, prior stenting of RCA with 100% in-stent restenosis Status post single-vessel CABG, CARRILLO to LAD Chronically occluded RCA, not felt to be candidate for bypass grafting Coronary artery disease with history of multiple stents Hypertension Hyperlipidemia Peripheral arterial disease Left internal carotid stenosis, 100% History of alcohol abuse with admission earlier this year to [place] Nicotine dependence Marijuana use Family history of premature coronary artery disease PLAN: Continue postoperative management per CT surgery Continue current cardiac medications Continue telemetry monitoring. Continue to monitor blood pressure Smoking cessation recommended. Patient to be referred to [place] quit line upon discharge. Discharge planning ongoing. Case management/social work looking for placement at discharge. Further recommendations pending patient course Nurse practitioner note has been reviewed by physician. Signing provider agrees with the documented findings, assessment, and plan of care documented by YEAST PUSHER as a scribe. Objective - Vital Signs Vital signs: Vital Signs Temp 98.2 F 09/22/23 08:07 Pulse 80 09/22/23 09:07 Resp 16 09/22/23 09:07 BP 108/70 09/22/23 08:07 Pulse Ox 97 09/22/23 08:39 FiO2 50 09/17/23 15:00 Intake & Output 09/21/23 09/22/23 09/22/23 18:59 06:59 18:59 Intake Total 236 580 Output Total 200 750 Balance 36 -170 Weight 59.647 kg Intake: IV 400 Pressure Bag 400 Oral 236 180 Output: Urine 200 750 Other: Voiding Method Toilet Toilet Toilet Urinal Urinal Urinal # Voids 2 # Bowel Movements 1 ABP, PAP, CO, CI - Last Documented Arterial Blood Pressure 120/95 Pulmonary Artery Pressure 29/10 Cardiac Output 6.9 Cardiac Index 4.3 - Labs CBC & Chem 7: 09/21/23 07:12 09/21/23 07:12
--- NOTE | 2023-09-22 10:51 | P.PN ---
Subjective Progress Note Date: 09/22/23 Hospital Course: Patient is a 58-year-old male with history of CAD status post stents, hyperten velasquez, hyperlipidemia, nicotine dependence, anxiety with depression and nightly cannabis use. He presented to the emergency department on 09/08/2023 secondary to a chief complaint of chest pain. He underwent evaluation in the emergency department. Vital signs upon arrival show blood pressure 160/90, heart rate 80, respiratory rate 18, temp 98.6 F, and SpO2 of 96% on room air. EKG was completed showing normal sinus rhythm at 68 bpm with prominent Q waves in inferior leads. Chest x-ray was negative for acute cardiopulmonary process. Completed and reviewed. CBC revealed leukocytosis with WBC count of 12.4. Coagulation profile normal findings. BMP unremarkable. Magnesium was 1.9. Liver profile unremarkable. Troponin was negative at less than 0.012. Patient was admitted under services with consultation to cardiology. Troponins trended overnight resulting at less than 0.012 x 3 draws. Lipid profile revealed elevated triglycerides of 164 and total cholesterol of 203.00. Hemoglobin A1c 5.5%. Patient went for a cardiac stress test which was positive for reversible ischemia. Cardiology then took patient for cardiac catheterization revealing 80% stenosis of mid LAD and 100% stenosis of RCA. Cardiology stated patient is not an appropriate candidate for PCI with stenting as he has shown evidence of in-stent restenosis and consulted cardiothoracic surgery for evaluation for b ypass. Echocardiogram completed showing a preserved EF of 50 to 55% with no significant valvular or structural abnormalities reported. Underwent CABG on 09/16. Currently recovering in medical ICU. Extubated. Patient improving well. Now on stepdown unit. Likely discharge to rehab on Saturday. Subjective: Patient seen and examined at bedside. No acute events overnight. No new complaints Pertinent positives and negatives as discussed above, a complete review of systems was performed and all other systems are negative. Vitals Signs Reviewed. General: Nontoxic, no distress Derm: Warm, dry Head: Atraumatic, normocephalic, symmetric Eyes: EOMI, no lid lag, anicteric sclera Mouth: No lip lesion, mucus membranes moist Cardiovascular: S1S2 reg, no murmur Lungs: CTA bilateral, no rhonchi, no rales, no accessory muscle use Abdominal: Soft, nontender, no appreciable organomegaly Ext: No gross muscle atrophy, no edema, no contractures Neuro: CN II to XII grossly normal Psych: Alert and oriented, cooperative Data Reviewed Today: Pertinent Labs: Sugars range between 88-1 08 Imaging: No new imaging Assessment and Plan: Occlusive coronary artery disease status post CABG Chest pain, secondary to above CAD with previous stenting x7 Hypertension Hyperlipidemia Nicotine dependence Anxiety Hyperglycemia -Thoracic surgery note reviewed, metoprolol at 50 twice daily -Sliding scale insulin, monitor for hypoglycemia, patient tolerating oral intake -Pulmonology following -Cardiology note reviewed, continue current treatment -PT/OT -Continue telemetry monitoring -Continue aspirin 325 daily, Plavix 75 mg daily, metoprolol 50 twice daily, losartan 25 daily, atorvastatin 40, amiodarone 400 twice daily -Pain control with oral Tylenol as needed, oral Oxy as needed,, IV Dilaudid as needed monitor for sedation, also on IV Toradol every 6 hours scheduled -Recommend smoking cessation during this admission, patient declined nicotine patch Pulmonary nodule -CT chest was completed and radiology report reviewed showing a right upper lobe 4 mm pulmonary nodule. Patient high risk secondary to smoking history will need repeat CT chest in 12 months. 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 DVT ppx: Subcu heparin Code status: Full code Anticipated discharge place: Pending clinical course Anticipated discharge time: Possibly Saturday Objective - Vital Signs Vital signs: Vital Signs Temp 98.2 F 09/22/23 08:07 Pulse 80 09/22/23 09:07 Resp 16 09/22/23 09:07 BP 108/70 09/22/23 08:07 Pulse Ox 97 09/22/23 08:39 FiO2 50 09/17/23 15:00 Intake & Output 09/21/23 09/22/23 09/22/23 18:59 06:59 18:59 Intake Total 236 580 Output Total 200 750 Balance 36 -170 Weight 59.647 kg Intake: IV 400 Pressure Bag 400 Oral 236 180 Output: Urine 200 750 Other: Voiding Method Toilet Toilet Toilet Urinal Urinal Urinal # Voids 2 # Bowel Movements 1 ABP, PAP, CO, CI - Last Documented Arterial Blood Pressure 120/95 Pulmonary Artery Pressure 29/10 Cardiac Output 6.9 Cardiac Index 4.3 - Labs CBC & Chem 7: 09/21/23 07:12 09/21/23 07:12
--- NOTE | 2023-09-22 11:25 | P.PN ---
Subjective Progress Note Date: 09/22/23 Principal diagnosis: off-pump coronary artery bypass grafting x 1 utilizing a CARRILLO to the LAD with a left atrial appendage ligation. Postoperative day #5 58-year-old male patient known history of coronary artery disease with previous coronary stenting along with hypertension hyperlipidemia and previous history of tobacco marijuana smoking and previous history of heavy alcohol drinking along with history of PAD, carotid artery stenosis on the left and a strong family history of coronary disease. The patient presented with complaints of chest pain and the patient underwent a cardiac catheterization the patient was found to have 80% stenosis of the LAD in its mid segment, 100% ostial RCA, 100% in- stent restenosis of the RCA and right to left collaterals and filling of the PDA and PL branches. The patient is currently being worked up for coronary artery bypass surgery. The patient had negative troponins. Renal function is stable with a normal creatinine, normal electrolytes, normal CBC and the viral screen was negative and the chest x-ray showed no acute cardiopulmonary abnormalities and the patient further had a CT scan of the chest on 09/11/2023 that showed no acute thoracic process, 4 mm right upper lobe pulmonary nodule, moderate to severe three-vessel coronary disease along with mild atherosclerotic disease involving the aorta and its branches and moderate atherosclerotic disease involving the bilateral renal arteries and mild background COPD. Echo done on 09/11/2023 showed preserved LV function along with segmental wall motion abnormalities involving the inferior and septal wall and the carotid Dopplers showed completely occluded left internal carotid artery without any flow. The patient is currently on room air oxygen with a pulse ox of 95%. The patient was seen by cardiothoracic surgery. He is not normal sinus rhythm. Plan for bypass surgery on 09/17/2023. 09/13/2023, the patient remains free of any chest pain. No specific complaints. The plan is to undergo coronary bypass surgery next week. The patient denies having any new complaints otherwise. Surgery will be done by Dr. Dee. Hemoglobin is at least 15.5 with a white cell count of 8.9. Electrolytes are within normal limits. 09/14/2023, no new complaints and the patient is still scheduled to undergo surgery on 09/17/2023. Ambulating. Incentive spirometer. No complaints. Cardiac rhythm remained sinus. No labs from today. Medications remain unchanged. The patient is on room air oxygen. 09/15/2023, patient is on the 6 floor. Sitting up on the chair. Tolerating diet. No chest pain. Using incentive spirometer. Cardiac rhythm is sinus. No signs of any delirium tremens. Labs from 09/13/2023 were reviewed. No other labs for today. The patient is seen today September 16, 2023 in follow-up on the regular medical floor. He is awake and alert in no acute distress. Sitting up in bed. He denies any shortness of breath, cough or congestion. He is maintaining good O2 saturations in the 90s on room air. He is working well with his incentive spirometer. He denies any chest pain or palpitations. White count 9.0. Hemoglobin 16.2. Platelets 203. Sodium 137. Potassium 4.4. Bicarb 21. BUN 21. Creatinine 0.9. Glucose 90. He remains on heparin for DVT prophylaxis. The patient is seen today September 17, 2023 postoperatively in the intensive care unit. He did undergo an off-pump coronary artery bypass grafting x 1 utilizing a CARRILLO to the LAD with a left atrial appendage ligation. Postoperative day #0. He is intubated on the mechanical ventilator and assist-control mode at a rate of 16, tidal volume 450, FiO2 100% and a PEEP of 5. Arterial blood gases revealed a PaO2 of 349, P CO2 of 45 and a pH of 7.37. White count 11.9. Hemoglobin 13.2. Platelets 137. Sodium 138. Potassium 3.9. Bicarb 24. BUN 17. Creatinine 0.67. Glucose 116. AST 26. ALT 26. Chest x-ray reveals bilateral platelike atelectasis left greater than right. Small left apical pneumothorax may be present. He does have mediastinal and left chest tubes present. [place]-Nataly catheter present. Endotracheal and nasogastric tubes in place. He is currently sedated on propofol at 20 mcg/kg/min being transition to Precedex currently at 0.6 mcg/kg/h. He is on clevidipine at 2 mg an hour. Nitroglycerin drip at 5 mcg/min. Insulin drip at 1 unit/h. Amiodarone drip at 1 mg/min. Lactated Ringer's at 50 MLS per hour. Cardiac output is 3.5. Cardiac index 2.2. PA pressures 27/11. CVP of 3. Patient was reevaluated today on 09/18/2023, patient is POD #1 off pump coronary artery bypass grafting x 1, left internal thoracic artery (in-situ) to left anterior descending coronary artery, endoscopic left greater saphenous vein harvest, left atrial appendage ligation using #35mm AtriClip, graft flow measurements using the Medi[employer]im flow meter system, trans-esophageal echo, patient was extubated yesterday at 1530. Patient is doing quite well, he is in sinus rhythm, hemodynamically stable, on IV amiodarone at 0.5 mg/min, he is on nitroglycerin drip as well as Cleviprex drip at 20 mg/h. Cardiac output is 6.9 cardiac index is 4.3, patient is receiving insulin at 1 unit/h. LR at 50 cc/h. Patient has mostly as expected postoperative pain, receiving Dilaudid as needed for pain control. Continues to have right IJ [place]-Nataly catheter, mediastinal/left pleural chest tubes, and again does not seem to be uncomfortableWBC count is 18.2 hemoglobin 14.3. Basic metabolic profile is normal with a relatively normal renal profile. Chest x-ray is mostly showing as expected postoperative changes no acute process otherwise as noted Patient was evaluated today on 09/19/2023, POD #2 off pump coronary artery bypass grafting x 1, left internal thoracic artery (in-situ) to left anterior descending coronary artery, endoscopic left greater saphenous vein harvest, left atrial appendage ligation using #35mm AtriClip, graft flow measurements using the Medi[employer]Stim flow meter system, trans-esophageal echo patient is sitting in a recliner, doing well, relatively asymptomatic, pain seems to be fairly under control with oxycodone and Dilaudid. Patient is heme medically stable, on 2 L nasal cannula, still doing poorly with incentive spirometry achieving no more than 750 cc patient continues to have multiple catheters and lines, this will likely be removed in the next 24 to 48 hours. Overall the patient is improving, and his clinical course is as expected. WBC count is 18.3 hemoglobin is 13.3 basic metabolic profile is normal and renal profile is normal. Chest x-ray today showed mostly postoperative cardiac surgery changes otherwise negative Reevaluated today on 09/20/2023, patient is now postoperative day #3. Continues to do quite well, relatively asymptomatic except for some postsurgical pain. Patient is on room air, he is not in any distress. WBC count is 10.7 hemoglobin 11.7 basic metabolic profile is normal and renal profile is normal. Chest x-ray showed bibasilar atelectasis. Patient was evaluated today on 09/21/2023, he is now postoperative day #4. Patient is sitting in the recliner, he is now in the stepdown unit, has some surgical pain which is expected, fairly well-controlled. Achieving about 1500 cc on his incentive spirometry, patient has been ambulating with assistance in the hallway. Patient is basically homeless, he may have to be discharged to a hotel at discharge and that will likely happen on Saturday. His chest x-ray is showing mostly bibasilar atelectasis, l labs were reviewed, Relatively normal CBC and normal basic metabolic profile, normal renal profile 3 today on 09/22/2023, patient is now postoperative day #5, he is doing great. On room air, does not seem to be in any distress, placement is in progress, Lakisha vela the patient is being considered for rehab placement at [facility]. Objective - Vital Signs Vital signs: Vital Signs Temp 98.2 F 09/22/23 08:07 Pulse 80 09/22/23 09:07 Resp 16 09/22/23 09:07 BP 108/70 09/22/23 08:07 Pulse Ox 97 09/22/23 08:39 FiO2 50 09/17/23 15:00 Intake & Output 09/21/23 09/22/23 09/22/23 18:59 06:59 18:59 Intake Total 236 580 240 Output Total 200 750 Balance 36 -170 240 Weight 59.647 kg Intake: IV 400 Pressure Bag 400 Oral 236 180 240 Output: Urine 200 750 Other: Voiding Method Toilet Toilet Toilet Urinal Urinal Urinal # Voids 2 # Bowel Movements 1 ABP, PAP, CO, CI - Last Documented Arterial Blood Pressure 120/95 Pulmonary Artery Pressure 29/10 Cardiac Output 6.9 Cardiac Index 4.3 - Exam General:: Reveals a 58-year-old white male in no distress. On room air RESPIRATORY: Good breath sound bilaterally no crackles rhonchi or wheezes CARDIOVASCULAR: Distant S1-S2, no S3 gallop, no murmur. GASTROINTESTINAL: Abdomen is soft nontender no megaly no rebound no guarding. INTEGUMENTARY: Skin is warm and dry with evidence of good perfusion NEUROLOGIC: Alert and oriented x 3 no gross focal deficit MUSKULOSKELETAL: No deformities and no limitation range of motion PSYCHIATRIC: Normal mood and affect no mental status examination I - Labs CBC & Chem 7: 09/21/23 07:12 09/21/23 07:12 Assessment and Plan Assessment: Impression: Coronary artery disease/symptomatic with unstable angina, status post single- vessel off-pump CABG postoperative day #5 History of previous [place] and multiple stents placement Generalized anxiety disorder Dyslipidemia Benign essential hypertension Peripheral vessel occlusive disease Medical noncompliance Family history of premature coronary artery disease Recommendation: Continue maximal medical therapy with beta-blockers Plavix statin and aspirin Continue ambulation Continue incentive spirometry Continue GI and DVT prophylaxis Continue pain medications as needed Patient will likely be sent to rehab tomorrow Will follow as needed Time with Patient: Less than 30
[2023-09-22 11:32] LABS: Glucose,Whole Blood 94 mg/dL (70-110)
[2023-09-22 16:32] LABS: Glucose,Whole Blood 105 mg/dL (70-110)
[2023-09-22] MEDS: IBUPROFEN 400 MG TAB PO PRN (19:45)
[2023-09-22] MEDS: SENNOSIDES-DOCUSATE SODIUM 1 EACH TAB PO PRN (19:45)
[2023-09-22 19:59] LABS: Glucose,Whole Blood 118 mg/dL (70-110)
[2023-09-23 05:58] LABS: Glucose,Whole Blood 101 mg/dL (70-110)
--- NOTE | 2023-09-23 07:45 | XR ---
EXAMINATION TYPE: XR chest 2V DATE OF EXAM: 09/23/2023 COMPARISON: 09/21/2023 HISTORY: Post cardiac surgery TECHNIQUE: Frontal and lateral views of the chest are obtained. FINDINGS: Scattered senescent parenchymal changes noted. Hyperinflation compatible with COPD. Scattered pleural-parenchymal opacities persist bilaterally. Small right and left effusions persist. No evidence for pneumothorax. Heart size is stable. Mediastinal structures are stable and grossly unremarkable. No evidence for hilar prominence. Degenerative changes dorsal spine. IMPRESSION: 1. Scattered pleural-parenchymal opacities persist bilaterally. Small right and left effusions persis t. No evidence for pneumothorax.
--- NOTE | 2023-09-23 07:47 | P.PN ---
Subjective Progress Note Date: 09/23/23 Principal diagnosis: Coronary artery disease, unstable angina. History of multiple myocardial infarctions with multiple stents, hypertension, hyperlipidemia, current tobacco dependence with cessation upon admission to the hospital, nightly marijuana use for anxiety, previous heavy EtOH use with admission earlier this year to [place], does admit to still drinking about 2 beers a month, peripheral arterial disease with claudication, left internal carotid stenosis 100% with possible TIA in the past, medical noncompliance, family history of premature coronary artery disease POD #6 off pump coronary artery bypass grafting x 1, left internal thoracic artery (in-situ) to left anterior descending coronary artery, endoscopic left greater saphenous vein harvest, left atrial appendage ligation using #35mm AtriClip, graft flow measurements using the [employer]-Stim flow meter system, trans- esophageal echo The patient was seen and examined this morning sitting up in recliner on the cardiac stepdown unit in no acute distress. States postsurgical pain is controlled on current medication regimen. Currently in sinus rhythm, hemodynamically stable. Currently on room air, able to achieve 8583-3709 mL on his incentive spirometry. Patient has been ambulatory in the hallway with assistance. The main concern at this point is discharge planning as patient was living in a hotel prior to surgery, he may not go to a hotel at discharge. Social work is working on finding placement, [facility] is reviewing the patient's case and may be willing to accept as they do take his insurance. If [facility] will accept he can be discharged today. No other new concerns. Objective - Vital Signs Vital signs: Vital Signs Temp 97.5 F L 09/23/23 02:55 Pulse 72 09/23/23 02:55 Resp 18 09/23/23 02:55 BP 148/81 09/23/23 02:55 Pulse Ox 97 09/23/23 02:55 FiO2 50 09/17/23 15:00 Intake & Output 09/22/23 09/23/23 09/23/23 18:59 06:59 18:59 Intake Total 417 Output Total 400 1100 Balance 17 -1100 Weight 59.1 kg Intake: Oral 417 Output: Urine 400 1100 Other: Voiding Method Toilet Toilet Urinal Urinal ABP, PAP, CO, CI - Last Documented Arterial Blood Pressure 120/95 Pulmonary Artery Pressure 29/10 Cardiac Output 6.9 Cardiac Index 4.3 - Exam CONSTITUTIONAL: Cooperative, no acute distress RESPIRATORY: Lungs sounds diminished bilaterally. Respirations even, nonlabored. Currently on room air with oxygen saturation 947%. Able to achieve 6516-4594 mL on incentive spirometry. Strong nonproductive cough. CARDIOVASCULAR: S1, S2 present. Regular rate and rhythm, sinus rhythm on telemetry. Sternum stable. Palpable peripheral pulses bilaterally. No edema present. No calf pain or tenderness noted. Heart hugger in place with patient demonstrating appropriate use. Antiembolism stockings, SCDs present. GASTROINTESTINAL: Abdomen soft, nontender, nondistended. Active bowel sounds present 4 quadrants. Tolerating diet. Positive bowel movement 09/20 GENITOURINARY: Continues to void INTEGUMENTARY: Skin is warm and dry with evidence of good perfusion. Anterior chest incision well approximated. Left lower extremity EVH site well approximated without redness or drainage. NEUROLOGIC: Cranial nerves II through XII intact MUSKULOSKELETAL: Able to move all extremities, strength equal bilaterally, gait normal PSYCHIATRIC: Alert and oriented to person place and time, appropriate affect, intact judgment and insight - Allied health notes Allied health notes reviewed: nursing - Labs CBC & Chem 7: 09/21/23 07:12 09/21/23 07:12 Labs: Abnormal Lab Results - Last 24 Hours (Table) 09/22/23 Range/Units 19:58 POC Glucose (mg/dL) 118 H (70-110) mg/dL - Imaging and Cardiology Chest x-ray: image reviewed Assessment and Plan Assessment: Coronary artery disease, unstable angina, status post single-vessel off-pump CABG Multiple myocardial infarctions with multiple stents Hypertension Hyperlipidemia, cholesterol 203, LDL 123 Current tobacco dependence with cessation upon admission to the hospital, FEV1 91% of predicted Nightly marijuana use for anxiety Previous heavy EtOH use with admission earlier this year to [place], does admit to still drinking about 2 beers a month Peripheral arterial disease with claudication, right TRELL 0.71, left TRELL 0.64 Left internal carotid stenosis 100% with possible TIA in the past Medical noncompliance Family history of premature coronary artery disease Plan: Continue to maximize medical therapy with aspirin, statin, Plavix, beta-ingrid, Lopressor increased to 50 mg twice daily yesterday Continue losartan for afterload reduction, increased to 50 mg daily today Continue amiodarone for A-fib prophylaxis, patient has had no A-fib at this point, will discharge on 400 mg daily for 1 week Encourage incentive spirometry use 10 times every hour while awake. Bronchodilators per pulmonology Increase activity, ambulate as tolerated. PT/OT/cardiac rehab consulted Will monitor labs and x-rays every other day, electrolyte replacement per protocol GI/DVT prophylaxis Insulin management per internal medicine Pain control with current medication regimen Continue to monitor and record strict accurate intake and output Daily weights Discharge planning in progress. Anticipate discharge once placement has been found and insurance authorization obtained, hopefully to [facility] today More recommendations to follow
[2023-09-23] MEDS: MAGNESIUM HYDROXIDE 2,400 MG/30 ML CUP PO PRN (08:07)
[2023-09-23 09:12] LABS: HCT 35.8 % (39.0-53.0); HGB 11.7 gm/dL (13.0-17.5); MCH 31.8 pg (25.0-35.0); MCHC 32.7 g/dL (31.0-37.0); MCV 97.3 fL (80.0-100.0); Mean Platelet Volume 8.3; Platelet Count 219 k/uL (150-450); RBC 3.68 m/uL (4.30-5.90); RDW 13.5 % (11.5-15.5); WBC 9.3 k/uL (3.8-10.6)
[2023-09-23 10:27] LABS: African American GFR (CKD) >90 (>60 ml/min/1.73 sqM); Anion Gap 7 mmol/L; Blood Urea Nitrogen 17 mg/dL (9-20); Carbon Dioxide 25 mmol/L (22-30); Chloride 105 mmol/L (98-107); Glucose 96 mg/dL (74-99); Non-African American GFR(CKD) >90 (>60 ml/min/1.73 sqM); Potassium 4.3 mmol/L (3.5-5.1); Sodium 137 mmol/L (137-145)
--- NOTE | 2023-09-23 11:07 | P.PN ---
Subjective HISTORY OF PRESENT ILLNESS: Patient examined this morning the bedside. He is sitting on the side of the bed. Patient currently denies any chest pain or pressure. He denies any shortness of breath. He does report feeling anxious about his surgery tomorrow. Echocardiogram completed revealing ejection fraction 50 to 55%. Vital signs are stable. September 18: The patient is sitting up in the chair, complaining of incisional chest discomfort and had some diaphoresis. His breathing is relatively stable. He continues to be in sinus mechanism. He denies any dizziness or palpitations. He has no significant nausea. His urinary output is stable. There is no episodes of malignant arrhythmia. Hemodynamically he is stable on no vasopressors. Medications: Aspirin, Cordarone 400 mg twice a day, Lipitor 40 mg daily, Plavix 75 mg daily, losartan 50 mg daily, metoprolol tartrate 25 mg 3 times daily. LAB: Hemoglobin 13.3, BUN 21, creatinine 0.90. Potassium 4.7. 09/19 And has been transferred out of the intensive care unit and seen today on the cardiac stepdown unit. Patient states he is feeling okay overall feeling better. He is using incentive spirometry frequently. He is working with physical therapy and walking in the hallway. His appetite is slightly better from yesterday but not back to normal. Repeat chest x-ray completed this morning shows no acute concerns. Blood pressure 99/65, heart rate 88, pulse ox 93% on room air. He is been afebrile. WBC 10.7, hemoglobin 11.7, platelet count 128. Potassium 4.2, BUN 30 creatinine 0.94. 09/21/2023 Patient examined this morning at the bedside. Patient denies chest pain or pr essure. He denies shortness of breath. Telemetry reveals sinus mechanism. Vital signs stable. Most recent blood pressure 107/70. Discharge planning continues and attempting to find placement for the patient as he was living in a hotel. Patient states he was up ambulating this morning and did have some nausea which was improved with Zofran. 09/22/2023 Patient examined this morning. Patient is sitting up in the chair. Patient reports surgical pain 10/08. He denies any chest pain or pressure. He denies any shortness of breath. He has been up ambulating in the jennings. Telemetry reveals sinus mechanism 09/23/2023 Patient examined this morning. He is sitting up in the chair. He denies chest pain or pressure. He denies shortness of breath. He reports incisional discomfort this morning. He also complains of constipation. He has been up ambulating. PHYSICAL EXAM: VITAL SIGNS: Reviewed. GENERAL: Well-developed in no acute distress. NECK: Supple. No JVD or thyromegaly LUNGS: Respirations even and unlabored. Lungs essentially clear to auscultation bilaterally. HEART: Regular rate and rhythm. S1 and S2 heard. EXTREMITIES: Normal range of motion. No clubbing or cyanosis. Peripheral pulses intact. No lower extremity edema ASSESSMENT: Chest pain s/p cardiac catheterization revealing 80% mid LAD stenosis, 100% ostial RCA stenosis, prior stenting of RCA with 100% in-stent restenosis Status post single-vessel CABG, CARRILLO to LAD Chronically occluded RCA, not felt to be candidate for bypass grafting Coronary artery disease with history of multiple stents Hypertension Hyperlipidemia Peripheral arterial disease Left internal carotid stenosis, 100% History of alcohol abuse with [facility] [employer] Nicotine dependence Marijuana use Family history of premature coronary artery disease PLAN: Continue postoperative management per CT surgery Continue current cardiac medications Continue telemetry monitoring. Continue to monitor blood pressure Smoking cessation recommended. Patient to be referred to [place] quit line upon discharge. Discharge planning ongoing. Stable for discharge from a cardiac standpoint. Further recommendations pending patient course Nurse practitioner note has been reviewed by physician. Signing provider agrees with the documented findings, assessment, and plan of care documented by DIAGNOSTIC ASSISTANT as a scribe. Objective - Vital Signs Vital signs: Vital Signs Temp 98 F 09/23/23 08:11 Pulse 73 09/23/23 08:11 Resp 16 09/23/23 08:11 BP 158/85 09/23/23 08:11 Pulse Ox 95 09/23/23 08:11 FiO2 50 09/17/23 15:00 Intake & Output 09/22/23 09/23/23 09/23/23 18:59 06:59 18:59 Intake Total 417 118 Output Total 400 1100 Balance 17 -1100 118 Weight 59.1 kg Intake: Oral 417 118 Output: Urine 400 1100 Other: Voiding Method Toilet Toilet Toilet Urinal Urinal Urinal ABP, PAP, CO, CI - Last Documented Arterial Blood Pressure 120/95 Pulmonary Artery Pressure 29/10 Cardiac Output 6.9 Cardiac Index 4.3 - Labs CBC & Chem 7: 09/23/23 09:00 09/23/23 09:00 Labs: Abnormal Lab Results - Last 24 Hours (Table) 09/22/23 09/23/23 Range/Units 19:58 09:00 RBC 3.68 L (4.30-5.90) m/uL Hgb 11.7 L (13.0-17.5) gm/dL Hct 35.8 L (39.0-53.0) % POC Glucose (mg/dL) 118 H (70-110) mg/dL
[2023-09-23 11:14] LABS: Glucose,Whole Blood 140 mg/dL (70-110)
[2023-09-23] MEDS: LOSARTAN 50 MG TAB PO SCH (11:34)
--- NOTE | 2023-09-23 12:47 | P.PN ---
Subjective Progress Note Date: 09/23/23 Hospital Course: Patient is a 58-year-old male with history of CAD status post stents, hyperten velasquez, hyperlipidemia, nicotine dependence, anxiety with depression and nightly cannabis use. He presented to the emergency department on 09/08/2023 secondary to a chief complaint of chest pain. He underwent evaluation in the emergency department. Vital signs upon arrival show blood pressure 160/90, heart rate 80, respiratory rate 18, temp 98.6 F, and SpO2 of 96% on room air. EKG was completed showing normal sinus rhythm at 68 bpm with prominent Q waves in inferior leads. Chest x-ray was negative for acute cardiopulmonary process. Completed and reviewed. CBC revealed leukocytosis with WBC count of 12.4. Coagulation profile normal findings. BMP unremarkable. Magnesium was 1.9. Liver profile unremarkable. Troponin was negative at less than 0.012. Patient was admitted under services with consultation to cardiology. Troponins trended overnight resulting at less than 0.012 x 3 draws. Lipid profile revealed elevated triglycerides of 164 and total cholesterol of 203.00. Hemoglobin A1c 5.5%. Patient went for a cardiac stress test which was positive for reversible ischemia. Cardiology then took patient for cardiac catheterization revealing 80% stenosis of mid LAD and 100% stenosis of RCA. Cardiology stated patient is not an appropriate candidate for PCI with stenting as he has shown evidence of in-stent restenosis and consulted cardiothoracic surgery for evaluation for b ypass. Echocardiogram completed showing a preserved EF of 50 to 55% with no significant valvular or structural abnormalities reported. Underwent CABG on 09/16. Currently recovering in medical ICU. Extubated. Patient improving well. Now on stepdown unit. Likely discharge to rehab soon as bed available. Subjective: Patient seen and examined at bedside. No acute events overnight. Some const ipation, having small bowel movements, passing flatus. Pertinent positives and negatives as discussed above, a complete review of systems was performed and all other systems are negative. Vitals Signs Reviewed. General: Nontoxic, no distress Derm: Warm, dry Head: Atraumatic, normocephalic, symmetric Eyes: EOMI, no lid lag, anicteric sclera Mouth: No lip lesion, mucus membranes moist Cardiovascular: S1S2 reg, no murmur Lungs: CTA bilateral, no rhonchi, no rales, no accessory muscle use Abdominal: Soft, nontender, no appreciable organomegaly Ext: No gross muscle atrophy, no edema, no contractures Neuro: CN II to XII grossly normal Psych: Alert and oriented, cooperative Data Reviewed Today: Pertinent Labs: WBC 9.3, hemoglobin 11.7, creatinine 0.74, blood sugars range between 96-1 40, magnesium 2 Imaging: No new imaging Assessment and Plan: Occlusive coronary artery disease status post CABG Chest pain, secondary to above CAD with previous stenting x7 Hypertension Hyperlipidemia Nicotine dependence Anxiety Hyperglycemia Constipation -Thoracic surgery note reviewed, continue current therapy -Sliding scale insulin, monitor for hypoglycemia, patient tolerating oral intake -Pulmonology following -Cardiology note reviewed, continue current treatment, okay to be discharged from their standpoint -PT/OT -Continue telemetry monitoring -Continue aspirin 325 daily, Plavix 75 mg daily, metoprolol 50 twice daily, losartan 25 daily, atorvastatin 40, amiodarone 400 twice daily -Pain control with oral Tylenol as needed, oral Oxy as needed,, IV Dilaudid as needed monitor for sedation, also on IV Toradol every 6 hours scheduled -Recommend smoking cessation during this admission, patient declined nicotine patch -On bowel regimen Pulmonary nodule -CT chest was completed and radiology report reviewed showing a right upper lobe 4 mm pulmonary nodule. Patient high risk secondary to smoking history will need repeat CT chest in 12 months. Homelessness -group worker/case management following DVT ppx: Subcu heparin Code status: Full code Anticipated discharge place: Pending clinical course Anticipated discharge time: Pending bed availability Objective - Vital Signs Vital signs: Vital Signs Temp 98 F 09/23/23 11:33 Pulse 80 09/23/23 12:02 Resp 16 09/23/23 11:33 BP 139/84 09/23/23 11:33 Pulse Ox 96 09/23/23 11:49 FiO2 50 09/17/23 15:00 Intake & Output 09/22/23 09/23/23 09/23/23 18:59 06:59 18:59 Intake Total 417 118 Output Total 400 1100 Balance 17 -1100 118 Weight 59.1 kg Intake: Oral 417 118 Output: Urine 400 1100 Other: Voiding Method Toilet Toilet Toilet Urinal Urinal Urinal # Bowel Movements 2 ABP, PAP, CO, CI - Last Documented Arterial Blood Pressure 120/95 Pulmonary Artery Pressure 29/10 Cardiac Output 6.9 Cardiac Index 4.3 - Labs CBC & Chem 7: 09/23/23 09:00 09/23/23 09:00 Labs: Abnormal Lab Results - Last 24 Hours (Table) 09/22/23 09/23/23 09/23/23 Range/Units 19:58 09:00 11:12 RBC 3.68 L (4.30-5.90) m/uL Hgb 11.7 L (13.0-17.5) gm/dL Hct 35.8 L (39.0-53.0) % POC Glucose (mg/dL) 118 H 140 H (70-110) mg/dL
--- NOTE | 2023-09-23 14:13 | P.PN ---
Subjective Progress Note Date: 09/23/23 Principal diagnosis: Chest pain. 58-year-old male patient known history of coronary artery disease with previous coronary stenting along with hypertension hyperlipidemia and previous history of tobacco marijuana smoking and previous history of heavy alcohol drinking along with history of PAD, carotid artery stenosis on the left and a strong family history of coronary disease. The patient presented with complaints of chest pain and the patient underwent a cardiac catheterization the patient was found to have 80% stenosis of the LAD in its mid segment, 100% ostial RCA, 100% in- stent restenosis of the RCA and right to left collaterals and filling of the PDA and PL branches. The patient is currently being worked up for coronary artery bypass surgery. The patient had negative troponins. Renal function is stable with a normal creatinine, normal electrolytes, normal CBC and the viral screen was negative and the chest x-ray showed no acute cardiopulmonary abnormalities and the patient further had a CT scan of the chest on 09/11/2023 that showed no acute thoracic process, 4 mm right upper lobe pulmonary nodule, moderate to severe three-vessel coronary disease along with mild atherosclerotic disease involving the aorta and its branches and moderate atherosclerotic disease involving the bilateral renal arteries and mild background COPD. Echo done on 09/11/2023 showed preserved LV function along with segmental wall motion abnormalities involving the inferior and septal wall and the carotid Dopplers showed completely occluded left internal carotid artery without any flow. The patient is currently on room air oxygen with a pulse ox of 95%. The patient was seen by cardiothoracic surgery. He is not normal sinus rhythm. Plan for bypass surgery on 09/17/2023. 09/13/2023, the patient remains free of any chest pain. No specific complaints. The plan is to undergo coronary bypass surgery next week. The patient denies having any new complaints otherwise. Surgery will be done by Dr. Dee. Hemoglobin is at least 15.5 with a white cell count of 8.9. Electrolytes are within normal limits. 09/14/2023, no new complaints and the patient is still scheduled to undergo surgery on 09/17/2023. Ambulating. Incentive spirometer. No complaints. Cardiac rhythm remained sinus. No labs from today. Medications remain unchanged. The patient is on room air oxygen. 09/15/2023, patient is on the 6 floor. Sitting up on the chair. Tolerating diet. No chest pain. Using incentive spirometer. Cardiac rhythm is sinus. No signs of any delirium tremens. Labs from 09/13/2023 were reviewed. No other labs for today. The patient is seen today September 16, 2023 in follow-up on the regular medical floor. He is awake and alert in no acute distress. Sitting up in bed. He denies any shortness of breath, cough or congestion. He is maintaining good O2 saturations in the 90s on room air. He is working well with his incentive spirometer. He denies any chest pain or palpitations. White count 9.0. Hemoglobin 16.2. Platelets 203. Sodium 137. Potassium 4.4. Bicarb 21. BUN 21. Creatinine 0.9. Glucose 90. He remains on heparin for DVT prophylaxis. The patient is seen today September 17, 2023 postoperatively in the intensive care unit. He did undergo an off-pump coronary artery bypass grafting x 1 utilizing a CARRILLO to the LAD with a left atrial appendage ligation. Postoperative day #0. He is intubated on the mechanical ventilator and assist-control mode at a rate of 16, tidal volume 450, FiO2 100% and a PEEP of 5. Arterial blood gases revealed a PaO2 of 349, P CO2 of 45 and a pH of 7.37. White count 11.9. Hemoglobin 13.2. Platelets 137. Sodium 138. Potassium 3.9. Bicarb 24. BUN 17. Creatinine 0.67. Glucose 116. AST 26. ALT 26. Chest x-ray reveals bilateral platelike atelectasis left greater than right. Small left apical pneumothorax may be present. He does have mediastinal and left chest tubes present. Alviso-Nataly catheter present. Endotracheal and nasogastric tubes in place. He is currently sedated on propofol at 20 mcg/kg/min being transition to Precedex currently at 0.6 mcg/kg/h. He is on clevidipine at 2 mg an hour. Nitroglycerin drip at 5 mcg/min. Insulin drip at 1 unit/h. Amiodarone drip at 1 mg/min. Lactated Ringer's at 50 MLS per hour. Cardiac output is 3.5. Cardiac index 2.2. PA pressures 27/11. CVP of 3. Patient was reevaluated today on 09/18/2023, patient is POD #1 off pump coronary artery bypass grafting x 1, left internal thoracic artery (in-situ) to left anterior descending coronary artery, endoscopic left greater saphenous vein harvest, left atrial appendage ligation using #35mm AtriClip, graft flow measurements using the Medi-Stim flow meter system, trans-esophageal echo, patient was extubated yesterday at 1530. Patient is doing quite well, he is in sinus rhythm, hemodynamically stable, on IV amiodarone at 0.5 mg/min, he is on nitroglycerin drip as well as Cleviprex drip at 20 mg/h. Cardiac output is 6.9 cardiac index is 4.3, patient is receiving insulin at 1 unit/h. LR at 50 cc/h. Patient has mostly as expected postoperative pain, receiving Dilaudid as needed for pain control. Continues to have right IJ Alviso-Nataly catheter, mediastinal/left pleural chest tubes, and again does not seem to be uncomfortableWBC count is 18.2 hemoglobin 14.3. Basic metabolic profile is nor mal with a relatively normal renal profile. Chest x-ray is mostly showing as expected postoperative changes no acute process otherwise as noted Patient was evaluated today on 09/19/2023, POD #2 off pump coronary artery bypass grafting x 1, left internal thoracic artery (in-situ) to left anterior de scending coronary artery, endoscopic left greater saphenous vein harvest, left atrial appendage ligation using #35mm AtriClip, graft flow measurements using the Medi-Stim flow meter system, trans-esophageal echo patient is sitting in a recliner, doing well, relatively asymptomatic, pain seems to be fairly under control with oxycodone and Dilaudid. Patient is heme medically stable, on 2 L nasal cannula, still doing poorly with incentive spirometry achieving no more than 750 cc patient continues to have multiple catheters and lines, this will likely be removed in the next 24 to 48 hours. Overall the patient is improving, and his clinical course is as expected. WBC count is 18.3 hemoglobin is 13.3 basic metabolic profile is normal and renal profile is normal. Chest x-ray today showed mostly postoperative cardiac surgery changes otherwise negative Reevaluated today on 09/20/2023, patient is now postoperative day #3. Continues to do quite well, relatively asymptomatic except for some postsurgical pain. Patient is on room air, he is not in any distress. WBC count is 10.7 hemoglobin 11.7 basic metabolic profile is normal and renal profile is normal. Chest x-ray showed bibasilar atelectasis. Patient was evaluated today on 09/21/2023, he is now postoperative day #4. Patient is sitting in the recliner, he is now in the stepdown unit, has some surgical pain which is expected, fairly well-controlled. Achieving about 1500 cc on his incentive spirometry, patient has been ambulating with assistance in the hallway. Patient is basically homeless, he may have to be discharged to a hotel at discharge and that will likely happen on Saturday. His chest x-ray is showing mostly bibasilar atelectasis, l labs were reviewed, Relatively normal CBC and normal basic metabolic profile, normal renal profile 3 today on 09/22/2023, patient is now postoperative day #5, he is doing great. On room air, does not seem to be in any distress, placement is in progress, I believe the patient is being considered for rehab placement at [facility]. Progress note dated September 23, 2023. The patient was seen today in room 354. He is on room air. No IV fluids. The patient is hoping to hear that he has been discharged from the hospital. No orders yet. Current labs include a white count 9.3, hemoglobin 11.7, hematocrit 35.8, and normal platelet count. Sodium, potassium, chloride, CO2, anion gap, BUN, and creatinine, are all normal. Glucose is 140. Calcium is 9. Magnesium is 2.0. Chest x-ray shows scattered parenchymal opacities, and small bilateral effusions. Objective - Vital Signs Vital signs: Vital Signs Temp 98 F 09/23/23 11:33 Pulse 80 09/23/23 12:02 Resp 16 09/23/23 11:33 BP 139/84 09/23/23 11:33 Pulse Ox 96 09/23/23 11:49 FiO2 50 09/17/23 15:00 Intake & Output 09/22/23 09/23/23 09/23/23 18:59 06:59 18:59 Intake Total 417 236 Output Total 400 1100 600 Balance - Weight 59.1 kg Intake: Oral 417 236 Output: Urine 400 1100 600 Other: Voiding Method Toilet Toilet Toilet Urinal Urinal Urinal # Bowel Movements 1 ABP, PAP, CO, CI - Last Documented Arterial Blood Pressure 120/95 Pulmonary Artery Pressure 29/10 Cardiac Output 6.9 Cardiac Index 4.3 - Exam No acute distress, oriented 3. No respiratory distress. Room air saturation is 97%. HEENT examination is grossly unremarkable. Mucous membranes are moist. No oral lesions. Neck supple. Full range of motion. No adenopathy thyromegaly or neck vein distention. Cardiovascular examination reveals regular rhythm rate. S1-S2 normal. No S3 or S4. No discernible murmur noted. Heart rate is 80 bpm. Lungs reveal clear breath sounds. Breath sounds are equal bilaterally. No adv entitious lung sounds including wheezes rhonchi or crackles. Room air saturation is 97%. Abdomen soft bowel sounds are heard. No masses or tenderness. Extremities are intact. No cyanosis clubbing or edema. Skin is without rash or lesion. Neurologic examination is brief but nonfocal. - Labs CBC & Chem 7: 09/23/23 09:00 09/23/23 09:00 Labs: Abnormal Lab Results - Last 24 Hours (Table) 09/22/23 09/23/23 09/23/23 Range/Units 19:58 09:00 11:12 RBC 3.68 L (4.30-5.90) m/uL Hgb 11.7 L (13.0-17.5) gm/dL Hct 35.8 L (39.0-53.0) % POC Glucose (mg/dL) 118 H 140 H (70-110) mg/dL Assessment and Plan Assessment: Postoperative day #6, status post off-pump bypass surgery, for symptomatic coronary disease, and unstable angina. Prior history of myocardial infarction, with multiple stent placements. Generalized anxiety disorder. Dyslipidemia. Benign essential hypertension. Peripheral vascular occlusive disease. Medical noncompliance. Family history of premature coronary disease. Plan: Plan dated September 23, 2023. The patient appears to be doing relatively well. He is seen today in room 354. He is on room air. He is not receiving any IV fluids. The patient is apparently homeless, and discharge planning is underway. Labs, x-rays, medications are reviewed. His chest x-ray is reviewed. We will continue to follow make recommendations along the way. The patient continue with incentive spirometry. He also continues on GI and DVT prophylaxis. Time with Patient: Less than 30
[2023-09-23 16:34] LABS: Glucose,Whole Blood 112 mg/dL (70-110)
[2023-09-23 19:41] LABS: Glucose,Whole Blood 103 mg/dL (70-110)
[2023-09-24 05:48] LABS: Glucose,Whole Blood 103 mg/dL (70-110)
--- NOTE | 2023-09-24 09:52 | P.PN ---
Subjective Progress Note Date: 09/24/23 Principal diagnosis: Coronary artery disease, unstable angina. History of multiple myocardial infarctions with multiple stents, hypertension, hyperlipidemia, current tobacco dependence with cessation upon admission to the hospital, nightly marijuana use for anxiety, previous heavy EtOH use with admission earlier this year to [facility], does admit to still drinking about 2 beers a month, peripheral arterial disease with claudication, left internal carotid stenosis 100% with possible TIA in the past, medical noncompliance, family history of premature coronary artery disease POD #7 off pump coronary artery bypass grafting x 1, left internal thoracic artery (in-situ) to left anterior descending coronary artery, endoscopic left greater saphenous vein harvest, left atrial appendage ligation using #35mm AtriClip, graft flow measurements using the Videojug-Stim flow meter system, trans- esophageal echo The patient was seen and examined this morning sitting up in recliner on the cardiac stepdown unit in no acute distress. States postsurgical pain remains controlled on current medication regimen. Currently in sinus rhythm, hemodynamically stable. Patient does have hypertension early in the morning which decreases throughout the day. Currently on room air, able to achieve 1200-1743 mL on his incentive spirometry. Patient has been ambulatory in the hallway with assistance. The main concern at this point is discharge planning as patient was living in a hotel prior to surgery, he may not go to a hotel at discharge. Social work is working on finding placement, [facility] declined admission, still being reviewed by [facility] in [place]. If [facility] will accept he can be discharged today. No other new concerns. Objective - Vital Signs Vital signs: Vital Signs Temp 98.1 F 09/24/23 07:49 Pulse 68 09/24/23 08:32 Resp 16 09/24/23 07:49 BP 118/76 09/24/23 07:49 Pulse Ox 96 09/24/23 08:20 FiO2 50 09/17/23 15:00 Intake & Output 09/23/23 09/24/23 09/24/23 18:59 06:59 18:59 Intake Total 354 120 Output Total 600 Balance -246 120 Weight 58.7 kg Intake: Oral 354 120 Output: Urine 600 Other: Voiding Method Toilet Toilet Urinal Urinal # Voids 1 # Bowel Movements 1 ABP, PAP, CO, CI - Last Documented Arterial Blood Pressure 120/95 Pulmonary Artery Pressure 29/10 Cardiac Output 6.9 Cardiac Index 4.3 - Exam CONSTITUTIONAL: Cooperative, no acute distress RESPIRATORY: Lungs sounds diminished bilaterally. Respirations even, nonlabored. Currently on room air with oxygen saturation 97%. Able to achieve 7296-0377 mL on incentive spirometry. Strong nonproductive cough. CARDIOVASCULAR: S1, S2 present. Regular rate and rhythm, sinus rhythm on telemetry. Sternum stable. Palpable peripheral pulses bilaterally. No edema present. No calf pain or tenderness noted. Heart hugger in place with patient demonstrating appropriate use. Antiembolism stockings, SCDs present. GASTROINTESTINAL: Abdomen soft, nontender, nondistended. Active bowel sounds present 4 quadrants. Tolerating diet. Positive bowel movement 09/22 GENITOURINARY: Continues to void INTEGUMENTARY: Skin is warm and dry with evidence of good perfusion. Anterior chest incision well approximated. Left lower extremity EVH site well approximated without redness or drainage. NEUROLOGIC: Cranial nerves II through XII intact MUSKULOSKELETAL: Able to move all extremities, strength equal bilaterally, gait normal PSYCHIATRIC: Alert and oriented to person place and time, appropriate affect, intact judgment and insight - Allied health notes Allied health notes reviewed: nursing - Labs CBC & Chem 7: 09/23/23 09:00 09/23/23 09:00 Labs: Abnormal Lab Results - Last 24 Hours (Table) 09/23/23 09/23/23 Range/Units 11:12 16:32 POC Glucose (mg/dL) 140 H 112 H (70-110) mg/dL Assessment and Plan Assessment: Coronary artery disease, unstable angina, status post single-vessel off-pump CABG Multiple myocardial infarctions with multiple stents Hypertension Hyperlipidemia, cholesterol 203, LDL 123 Current tobacco dependence with cessation upon admission to the hospital, FEV1 91% of predicted Nightly marijuana use for anxiety Previous heavy EtOH use with admission earlier this year to [facility], does admit to still drinking about 2 beers a month Peripheral arterial disease with claudication, right TRELL 0.71, left TRELL 0.64 Left internal carotid stenosis 100% with possible TIA in the past Medical noncompliance Family history of premature coronary artery disease Plan: Continue to maximize medical therapy with aspirin, statin, Plavix, beta-ingrid Continue losartan for afterload reduction Continue amiodarone for A-fib prophylaxis, patient has had no A-fib at this point, will discharge on 400 mg daily for 1 week Encourage incentive spirometry use 10 times every hour while awake. Bronchodilators per pulmonology Increase activity, ambulate as tolerated. PT/OT/cardiac rehab consulted Will monitor labs and x-rays every other day, electrolyte replacement per protocol GI/DVT prophylaxis Insulin management per internal medicine Pain control with current medication regimen Continue to monitor and record strict accurate intake and output Daily weights Discharge planning in progress. Anticipate discharge once placement has been found and insurance authorization obtained More recommendations to follow
[2023-09-24] MEDS: ALBUMIN HUMAN 5% 500 ML in EMPTY BAG 1 BAG IVPB ONE ×6 (11:10→11:11)
[2023-09-24] MEDS: ALBUMIN HUMAN 25% 50 ML in EMPTY BAG 1 BAG IVPB ONE (11:10)
[2023-09-24] MEDS: ceFAZolin 1,000 MG in SODIUM CHLORIDE 0.9% IRRIGATIO 1,000 ML IRRIGATION ONE (11:11)
[2023-09-24] MEDS: CLEVIDIPINE BUTYRATE 25 MG in EMPTY BAG 1 BAG IV SCH (11:11)
[2023-09-24] MEDS: ELECTROLYTE-A SOLUTION 1,000 ML with POTASSIUM CHLORIDE 100 MEQ, MAGNESIUM SULFATE 16 M... IV ONE (11:11)
[2023-09-24] MEDS: CHLORHEXIDINE GLUCONATE 15 ML CUP MUCOUS MEM ONE (11:11)
[2023-09-24] MEDS: CALCIUM CHLORIDE 100 MG/ML 10 ML SYRINGE IVP ONE (11:11)
[2023-09-24] MEDS: HEPARIN SODIUM 1,000 UN/ML (10ML VL) IV ONE (11:12)
[2023-09-24] MEDS: HEPARIN SODIUM,PORCINE (1 ML) 5,000 UNIT in SODIUM CHLORIDE 0.9% 500 ML 500 ML IV ONE (11:12)
[2023-09-24] MEDS: ELECTROLYTE-A SOLUTION 1,000 ML with POTASSIUM CHLORIDE 40 MEQ, MAGNESIUM SULFATE 16 ME... IV ONE (11:12)
[2023-09-24] MEDS: PAPAVERINE 360 MG in SODIUM CHLORIDE 0.9% 90 ML IV ONE (11:13)
[2023-09-24] MEDS: NITROGLYCERIN-D5W PMX 50 MG in DEXTROSE/WATER 1 250ML.BAG IV SCH (11:13)
[2023-09-24] MEDS: MANNITOL 25% 12.5 GM/50 ML VIAL IV ONE ×2 (11:13)
[2023-09-24] MEDS: MAGNESIUM SULFATE 16.24 MEQ in EMPTY SYRINGE 1 SYR IV ONE (11:13)
[2023-09-24] MEDS: NITROGLYCERIN-D5W PMX 25 MG/250 ML BTL IV ONE (11:13)
[2023-09-24] MEDS: PHENYLEPHRINE 40 MG in SODIUM CHLORIDE 0.9% 250 ML IV ONE (11:14)
[2023-09-24] MEDS: TRANEXAMIC ACID 2,000 MG in SODIUM CHLORIDE 0.9% 80 ML IV ONE (11:14)
[2023-09-24] MEDS: SODIUM BICARB 8.4% 50 ML SYR (1 MEQ/ML) IV ONE (11:14)
[2023-09-24] MEDS: PROTAMINE SULFATE 10 MG/ML 25 ML VIAL IV ONE (11:14)
[2023-09-24] MEDS: PROTAMINE SULFATE 250 MG in EMPTY BAG 1 BAG IV ONE (11:14)
--- NOTE | 2023-09-24 11:16 | P.PN ---
Subjective HISTORY OF PRESENT ILLNESS: Patient examined this morning the bedside. He is sitting on the side of the bed. Patient currently denies any chest pain or pressure. He denies any shortness of breath. He does report feeling anxious about his surgery tomorrow. Echocardiogram completed revealing ejection fraction 50 to 55%. Vital signs are stable. September 18: The patient is sitting up in the chair, complaining of incisional chest discomfort and had some diaphoresis. His breathing is relatively stable. He continues to be in sinus mechanism. He denies any dizziness or palpitations. He has no significant nausea. His urinary output is stable. There is no episodes of malignant arrhythmia. Hemodynamically he is stable on no vasopressors. Medications: Aspirin, Cordarone 400 mg twice a day, Lipitor 40 mg daily, Plavix 75 mg daily, losartan 50 mg daily, metoprolol tartrate 25 mg 3 times daily. LAB: Hemoglobin 13.3, BUN 21, creatinine 0.90. Potassium 4.7. 09/19 And has been transferred out of the intensive care unit and seen today on the cardiac stepdown unit. Patient states he is feeling okay overall feeling better. He is using incentive spirometry frequently. He is working with physical therapy and walking in the hallway. His appetite is slightly better from yesterday but not back to normal. Repeat chest x-ray completed this morning shows no acute concerns. Blood pressure 99/65, heart rate 88, pulse ox 93% on room air. He is been afebrile. WBC 10.7, hemoglobin 11.7, platelet count 128. Potassium 4.2, BUN 30 creatinine 0.94. 09/21/2023 Patient examined this morning at the bedside. Patient denies chest pain or pr essure. He denies shortness of breath. Telemetry reveals sinus mechanism. Vital signs stable. Most recent blood pressure 107/70. Discharge planning continues and attempting to find placement for the patient as he was living in a hotel. Patient states he was up ambulating this morning and did have some nausea which was improved with Zofran. 09/22/2023 Patient examined this morning. Patient is sitting up in the chair. Patient reports surgical pain 10/08. He denies any chest pain or pressure. He denies any shortness of breath. He has been up ambulating in the [place]. Telemetry reveals sinus mechanism 09/23/2023 Patient examined this morning. He is sitting up in the chair. He denies chest pain or pressure. He denies shortness of breath. He reports incisional discomfort this morning. He also complains of constipation. He has been up ambulating. 09/24/2023 Patient examined this morning. He is sitting up in the chair. He denies chest pain or pressure. He denies shortness of breath. He reports incisional discomfort this morning. He has been up ambulating. PHYSICAL EXAM: VITAL SIGNS: Reviewed. GENERAL: Well-developed in no acute distress. NECK: Supple. No JVD or thyromegaly LUNGS: Respirations even and unlabored. Lungs essentially clear to auscultation bilaterally. HEART: Regular rate and rhythm. S1 and S2 heard. EXTREMITIES: Normal range of motion. No clubbing or cyanosis. Peripheral pulses intact. No lower extremity edema ASSESSMENT: Chest pain s/p cardiac catheterization revealing 80% mid LAD stenosis, 100% ostial RCA stenosis, prior stenting of RCA with 100% in-stent restenosis Status post single-vessel CABG, CARRILLO to LAD Chronically occluded RCA, not felt to be candidate for bypass grafting Coronary artery disease with history of multiple stents Hypertension Hyperlipidemia Peripheral arterial disease Left internal carotid stenosis, 100% History of alcohol abuse with admission earlier this year to [facility] Nicotine dependence Marijuana use Family history of premature coronary artery disease PLAN: Continue postoperative management per CT surgery Continue current cardiac medications Continue telemetry monitoring. Continue to monitor blood pressure Smoking cessation recommended. Patient to be referred to [place] quit line upon discharge. Discharge planning ongoing. Stable for discharge from a cardiac standpoint. Further recommendations pending patient course Nurse practitioner note has been reviewed by physician. Signing provider agrees with the documented findings, assessment, and plan of care documented by AGRONOMY TECHNICIAN as a scribe. Objective - Vital Signs Vital signs: Vital Signs Temp 98.1 F 09/24/23 07:49 Pulse 68 09/24/23 08:32 Resp 16 09/24/23 07:49 BP 118/76 09/24/23 07:49 Pulse Ox 96 09/24/23 08:20 FiO2 50 09/17/23 15:00 Intake & Output 09/23/23 09/24/23 09/24/23 18:59 06:59 18:59 Intake Total 354 120 Output Total 600 Balance -246 120 Weight 58.7 kg Intake: Oral 354 120 Output: Urine 600 Other: Voiding Method Toilet Toilet Toilet Urinal Urinal Urinal # Voids 1 0 # Bowel Movements 1 0 ABP, PAP, CO, CI - Last Documented Arterial Blood Pressure 120/95 Pulmonary Artery Pressure 29/10 Cardiac Output 6.9 Cardiac Index 4.3 - Labs CBC & Chem 7: 09/23/23 09:00 09/23/23 09:00 Labs: Abnormal Lab Results - Last 24 Hours (Table) 09/23/23 Range/Units 16:32 POC Glucose (mg/dL) 112 H (70-110) mg/dL
--- NOTE | 2023-09-24 11:27 | P.PN ---
Subjective Progress Note Date: 09/24/23 Principal diagnosis: Chest pain. 58-year-old male patient known history of coronary artery disease with previous coronary stenting along with hypertension hyperlipidemia and previous history of tobacco marijuana smoking and previous history of heavy alcohol drinking along with history of PAD, carotid artery stenosis on the left and a strong family history of coronary disease. The patient presented with complaints of chest pain and the patient underwent a cardiac catheterization the patient was found to have 80% stenosis of the LAD in its mid segment, 100% ostial RCA, 100% in- stent restenosis of the RCA and right to left collaterals and filling of the PDA and PL branches. The patient is currently being worked up for coronary artery bypass surgery. The patient had negative troponins. Renal function is stable with a normal creatinine, normal electrolytes, normal CBC and the viral screen was negative and the chest x-ray showed no acute cardiopulmonary abnormalities and the patient further had a CT scan of the chest on 09/11/2023 that showed no acute thoracic process, 4 mm right upper lobe pulmonary nodule, moderate to severe three-vessel coronary disease along with mild atherosclerotic disease involving the aorta and its branches and moderate atherosclerotic disease involving the bilateral renal arteries and mild background COPD. Echo done on 09/11/2023 showed preserved LV function along with segmental wall motion abnormalities involving the inferior and septal wall and the carotid Dopplers showed completely occluded left internal carotid artery without any flow. The patient is currently on room air oxygen with a pulse ox of 95%. The patient was seen by cardiothoracic surgery. He is not normal sinus rhythm. Plan for bypass surgery on 09/17/2023. 09/13/2023, the patient remains free of any chest pain. No specific complaints. The plan is to undergo coronary bypass surgery next week. The patient denies having any new complaints otherwise. Surgery will be done by Dr. Dee. Hemoglobin is at least 15.5 with a white cell count of 8.9. Electrolytes are within normal limits. 09/14/2023, no new complaints and the patient is still scheduled to undergo surgery on 09/17/2023. Ambulating. Incentive spirometer. No complaints. Cardiac rhythm remained sinus. No labs from today. Medications remain unchanged. The patient is on room air oxygen. 09/15/2023, patient is on the 6 floor. Sitting up on the chair. Tolerating diet. No chest pain. Using incentive spirometer. Cardiac rhythm is sinus. No signs of any delirium tremens. Labs from 09/13/2023 were reviewed. No other labs for today. The patient is seen today September 16, 2023 in follow-up on the regular medical floor. He is awake and alert in no acute distress. Sitting up in bed. He denies any shortness of breath, cough or congestion. He is maintaining good O2 saturations in the 90s on room air. He is working well with his incentive spirometer. He denies any chest pain or palpitations. White count 9.0. Hemoglobin 16.2. Platelets 203. Sodium 137. Potassium 4.4. Bicarb 21. BUN 21. Creatinine 0.9. Glucose 90. He remains on heparin for DVT prophylaxis. The patient is seen today September 17, 2023 postoperatively in the intensive care unit. He did undergo an off-pump coronary artery bypass grafting x 1 utilizing a CARRILLO to the LAD with a left atrial appendage ligation. Postoperative day #0. He is intubated on the mechanical ventilator and assist-control mode at a rate of 16, tidal volume 450, FiO2 100% and a PEEP of 5. Arterial blood gases revealed a PaO2 of 349, P CO2 of 45 and a pH of 7.37. White count 11.9. Hemoglobin 13.2. Platelets 137. Sodium 138. Potassium 3.9. Bicarb 24. BUN 17. Creatinine 0.67. Glucose 116. AST 26. ALT 26. Chest x-ray reveals bilateral platelike atelectasis left greater than right. Small left apical pneumothorax may be present. He does have mediastinal and left chest tubes present. [place]-Nataly catheter present. Endotracheal and nasogastric tubes in place. He is currently sedated on propofol at 20 mcg/kg/min being transition to Precedex currently at 0.6 mcg/kg/h. He is on clevidipine at 2 mg an hour. Nitroglycerin drip at 5 mcg/min. Insulin drip at 1 unit/h. Amiodarone drip at 1 mg/min. Lactated Ringer's at 50 MLS per hour. Cardiac output is 3.5. Cardiac index 2.2. PA pressures 27/11. CVP of 3. Patient was reevaluated today on 09/18/2023, patient is POD #1 off pump coronary artery bypass grafting x 1, left internal thoracic artery (in-situ) to left anterior descending coronary artery, endoscopic left greater saphenous vein harvest, left atrial appendage ligation using #35mm AtriClip, graft flow measurements using the Medi-Stim flow meter system, trans-esophageal echo, patient was extubated yesterday at 1530. Patient is doing quite well, he is in sinus rhythm, hemodynamically stable, on IV amiodarone at 0.5 mg/min, he is on nitroglycerin drip as well as Cleviprex drip at 20 mg/h. Cardiac output is 6.9 cardiac index is 4.3, patient is receiving insulin at 1 unit/h. LR at 50 cc/h. Patient has mostly as expected postoperative pain, receiving Dilaudid as needed for pain control. Continues to have right IJ [place]-Nataly catheter, mediastinal/left pleural chest tubes, and again does not seem to be uncomfortableWBC count is 18.2 hemoglobin 14.3. Basic metabolic profile is nor mal with a relatively normal renal profile. Chest x-ray is mostly showing as expected postoperative changes no acute process otherwise as noted Patient was evaluated today on 09/19/2023, POD #2 off pump coronary artery bypass grafting x 1, left internal thoracic artery (in-situ) to left anterior de scending coronary artery, endoscopic left greater saphenous vein harvest, left atrial appendage ligation using #35mm AtriClip, graft flow measurements using the Medi-Stim flow meter system, trans-esophageal echo patient is sitting in a recliner, doing well, relatively asymptomatic, pain seems to be fairly under control with oxycodone and Dilaudid. Patient is heme medically stable, on 2 L nasal cannula, still doing poorly with incentive spirometry achieving no more than 750 cc patient continues to have multiple catheters and lines, this will likely be removed in the next 24 to 48 hours. Overall the patient is improving, and his clinical course is as expected. WBC count is 18.3 hemoglobin is 13.3 basic metabolic profile is normal and renal profile is normal. Chest x-ray today showed mostly postoperative cardiac surgery changes otherwise negative Reevaluated today on 09/20/2023, patient is now postoperative day #3. Continues to do quite well, relatively asymptomatic except for some postsurgical pain. Patient is on room air, he is not in any distress. WBC count is 10.7 hemoglobin 11.7 basic metabolic profile is normal and renal profile is normal. Chest x-ray showed bibasilar atelectasis. Patient was evaluated today on 09/21/2023, he is now postoperative day #4. Patient is sitting in the recliner, he is now in the stepdown unit, has some surgical pain which is expected, fairly well-controlled. Achieving about 1500 cc on his incentive spirometry, patient has been ambulating with assistance in the hallway. Patient is basically homeless, he may have to be discharged to a hotel at discharge and that will likely happen on Saturday. His chest x-ray is showing mostly bibasilar atelectasis, l labs were reviewed, Relatively normal CBC and normal basic metabolic profile, normal renal profile 3 today on 09/22/2023, patient is now postoperative day #5, he is doing great. On room air, does not seem to be in any distress, placement is in progress, I believe the patient is being considered for rehab placement at [facility]. Progress note dated September 23, 2023. The patient was seen today in room 354. He is on room air. No IV fluids. The patient is hoping to hear that he has been discharged from the hospital. No orders yet. Current labs include a white count 9.3, hemoglobin 11.7, hematocrit 35.8, and normal platelet count. Sodium, potassium, chloride, CO2, anion gap, BUN, and creatinine, are all normal. Glucose is 140. Calcium is 9. Magnesium is 2.0. Chest x-ray shows scattered parenchymal opacities, and small bilateral effusions. Progress note dated September 24, 2023. The patient is seen today room 354. This is a 58-year-old gentleman status post bypass surgery. The patient is doing relatively well. He had an off-pump procedure. Currently, he is on room air, and not receiving any IV fluids. Discharge planning is underway. Current labs include a blood glucose of 103. No chest x-ray today as yet. Objective - Vital Signs Vital signs: Vital Signs Temp 98.1 F 09/24/23 07:49 Pulse 68 09/24/23 08:32 Resp 16 09/24/23 07:49 BP 118/76 09/24/23 07:49 Pulse Ox 96 09/24/23 08:20 FiO2 50 09/17/23 15:00 Intake & Output 09/23/23 09/24/23 09/24/23 18:59 06:59 18:59 Intake Total 354 120 Output Total 600 Balance -246 120 Weight 58.7 kg Intake: Oral 354 120 Output: Urine 600 Other: Voiding Method Toilet Toilet Toilet Urinal Urinal Urinal # Voids 1 0 # Bowel Movements 1 0 ABP, PAP, CO, CI - Last Documented Arterial Blood Pressure 120/95 Pulmonary Artery Pressure 29/10 Cardiac Output 6.9 Cardiac Index 4.3 - Exam No acute distress, oriented 3. No respiratory distress. Room air saturation is 96 %. HEENT examination is grossly unremarkable. Mucous membranes are moist. No oral lesions. Neck supple. Full range of motion. No adenopathy thyromegaly or neck vein distention. Cardiovascular examination reveals regular rhythm rate. S1-S2 normal. No S3 or S4. No discernible murmur noted. Heart rate is 77 bpm. Lungs reveal clear breath sounds. Breath sounds are equal bilaterally. No adventitious lung sounds including wheezes rhonchi or crackles. Room air saturation is 96 %. Abdomen soft bowel sounds are heard. No masses or tenderness. Extremities are intact. No cyanosis clubbing or edema. Skin is without rash or lesion. Neurologic examination is brief but nonfocal. - Labs CBC & Chem 7: 09/23/23 09:00 09/23/23 09:00 Labs: Abnormal Lab Results - Last 24 Hours (Table) 09/23/23 Range/Units 16:32 POC Glucose (mg/dL) 112 H (70-110) mg/dL Assessment and Plan Assessment: Postoperative day #7, status post off-pump bypass surgery, for symptomatic coronary disease, and unstable angina. Prior history of myocardial infarction, with multiple stent placements. Generalized anxiety disorder. Dyslipidemia. Benign essential hypertension. Peripheral vascular occlusive disease. Medical noncompliance. Family history of premature coronary disease. Plan: Plan dated September 23, 2023. The patient appears to be doing relatively well. He is seen today in room 354. He is on room air. He is not receiving any IV fluids. The patient is apparently homeless, and discharge planning is underway. Labs, x-rays, medications are reviewed. His chest x-ray is reviewed. We will continue to follow make recommendations along the way. The patient continue with incentive spirometry. He also continues on GI and DVT prophylaxis. Plan dated September 22, 2023. The patient is currently on room air. Is not receiving any IV fluids. Today is postoperative day #7. Discharge planning underway. The patient is apparently homeless, and, social work is working on getting the patient properly discharged. Labs, x-rays, and medications are reviewed. We will continue to follow make recommendations along the way. We encourage deep breathing, c oughing, clearing of secretions, and hourly use of the incentive spirometer. Time with Patient: Less than 30
[2023-09-24 11:53] LABS: Glucose,Whole Blood 102 mg/dL (70-110)
--- NOTE | 2023-09-24 13:26 | P.PN ---
Subjective Progress Note Date: 09/24/23 Patient is a 58-year-old male with history of CAD status post stents, hypertension, hyperlipidemia, nicotine dependence, anxiety with depression and nightly cannabis use. He presented to the emergency department on 09/08/2023 secondary to a chief complaint of chest pain. He underwent evaluation in the emergency department. Vital signs upon arrival show blood pressure 160/90, heart rate 80, respiratory rate 18, temp 98.6 F, and SpO2 of 96% on room air. EKG was completed showing normal sinus rhythm at 68 bpm with prominent Q waves in inferior leads. Chest x-ray was negative for acute cardiopulmonary process. Completed and reviewed. CBC revealed leukocytosis with WBC count of 12.4. Coagulation profile normal findings. BMP unremarkable. Magnesium was 1.9. Liver profile unremarkable. Troponin was negative at less than 0.012. Patient was admitted under services with consultation to cardiology. Troponins trended overnight resulting at less than 0.012 x 3 draws. Lipid profile revealed e levated triglycerides of 164 and total cholesterol of 203.00. Hemoglobin A1c 5.5%. Patient went for a cardiac stress test which was positive for reversible ischemia. Cardiology then took patient for cardiac catheterization revealing 80% stenosis of mid LAD and 100% stenosis of RCA. Cardiology stated patient is not an appropriate candidate for PCI with stenting as he has shown evidence of in-stent restenosis and consulted cardiothoracic surgery for evaluation for bypass. Echocardiogram completed showing a preserved EF of 50 to 55% with no significant valvular or structural abnormalities reported. Underwent CABG on 09/16. Currently recovering in medical ICU. Extubated. Patient improving well. Now on stepdown unit. Likely discharge to rehab soon as bed available. 09/23 Patient seen and examined at bedside. No acute events overnight. No complaints. General: Nontoxic, no distress Derm: Warm, dry Head: Atraumatic, normocephalic, symmetric Eyes: EOMI, no lid lag, anicteric sclera Mouth: No lip lesion, mucus membranes moist Cardiovascular: S1S2 reg, no murmur Lungs: CTA bilateral, no rhonchi, no rales, no accessory muscle use Ext: No gross muscle atrophy, no edema, no contractures Psych: Alert and oriented, cooperative Assessment and Plan: Occlusive coronary artery disease status post CABG Chest pain, secondary to above CAD with previous stenting x7 Hypertension Hyperlipidemia Nicotine dependence Anxiety Hyperglycemia Constipation -Thoracic surgery note reviewed, continue current therapy -Sliding scale insulin, monitor for hypoglycemia, patient tolerating oral intake -Pulmonology following -Cardiology note reviewed, continue current treatment, okay to be discharged fr om their standpoint -PT/OT -Continue telemetry monitoring -Continue aspirin 325 daily, Plavix 75 mg daily, metoprolol 50 twice daily, losartan 25 daily, atorvastatin 40, amiodarone 400 twice daily -Pain control with oral Tylenol as needed, oral Oxy as needed,, IV Dilaudid as needed monitor for sedation, also on IV Toradol every 6 hours scheduled -Recommend smoking cessation during this admission, patient declined nicotine patch -On bowel regimen Pulmonary nodule -CT chest was completed and radiology report reviewed showing a right upper lobe 4 mm pulmonary nodule. Patient high risk secondary to smoking history will need repeat CT chest in 12 months. 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 DVT ppx: Subcu heparin Code status: Full code Anticipated discharge place: Pending clinical course Anticipated discharge time: Pending bed availability Objective - Vital Signs Vital signs: Vital Signs Temp 98.1 F 09/24/23 07:49 Pulse 68 09/24/23 08:32 Resp 16 09/24/23 07:49 BP 118/76 09/24/23 07:49 Pulse Ox 96 09/24/23 08:20 FiO2 50 09/17/23 15:00 Intake & Output 09/23/23 09/24/23 09/24/23 18:59 06:59 18:59 Intake Total 354 240 Output Total 600 Balance -246 240 Weight 58.7 kg Intake: Oral 354 240 Output: Urine 600 Other: Voiding Method Toilet Toilet Toilet Urinal Urinal Urinal # Voids 1 0 # Bowel Movements 1 0 ABP, PAP, CO, CI - Last Documented Arterial Blood Pressure 120/95 Pulmonary Artery Pressure 29/10 Cardiac Output 6.9 Cardiac Index 4.3 - Labs CBC & Chem 7: 09/23/23 09:00 09/23/23 09:00 Labs: Abnormal Lab Results - Last 24 Hours (Table) 09/23/23 Range/Units 16:32 POC Glucose (mg/dL) 112 H (70-110) mg/dL
[2023-09-24 16:28] LABS: Glucose,Whole Blood 98 mg/dL (70-110)
[2023-09-24 20:28] LABS: Glucose,Whole Blood 111 mg/dL (70-110)
[2023-09-25 06:03] LABS: Glucose,Whole Blood 99 mg/dL (70-110)
--- NOTE | 2023-09-25 08:02 | P.PN ---
Subjective Progress Note Date: 09/25/23 Principal diagnosis: Coronary artery disease, unstable angina. History of multiple myocardial infarctions with multiple stents, hypertension, hyperlipidemia, current tobacco dependence with cessation upon admission to the hospital, nightly marijuana use for anxiety, previous heavy EtOH use with admission earlier this year to [facility], does admit to still drinking about 2 beers a month, peripheral arterial disease with claudication, left internal carotid stenosis 100% with possible TIA in the past, medical noncompliance, family history of premature coronary artery disease POD #8 off pump coronary artery bypass grafting x 1, left internal thoracic artery (in-situ) to left anterior descending coronary artery, endoscopic left greater saphenous vein harvest, left atrial appendage ligation using #35mm AtriClip, graft flow measurements using the [employer]-Stim flow meter system, trans- esophageal echo The patient was seen and examined this morning sitting up in recliner on the cardiac stepdown unit in no acute distress. States postsurgical pain remains controlled on current medication regimen. Currently in sinus rhythm, hemodynamically stable. Currently on room air, able to achieve 3793-2426 mL on his incentive spirometry. Patient has been ambulatory in the hallway with assistance. Still working on placement, once obtained will discharge patient. No other concerns. Objective - Vital Signs Vital signs: Vital Signs Temp 98.0 F 09/25/23 04:00 Pulse 69 09/25/23 07:41 Resp 16 09/25/23 04:00 BP 128/72 09/25/23 04:00 Pulse Ox 96 09/25/23 07:28 FiO2 50 09/17/23 15:00 Intake & Output 09/24/23 09/25/23 09/25/23 18:59 06:59 18:59 Intake Total 360 Balance 360 Weight 57.4 kg Intake: Oral 360 Other: Voiding Method Toilet Toilet Urinal Urinal # Voids 4 1 # Bowel Movements 0 ABP, PAP, CO, CI - Last Documented Arterial Blood Pressure 120/95 Pulmonary Artery Pressure 29/10 Cardiac Output 6.9 Cardiac Index 4.3 - Exam CONSTITUTIONAL: Cooperative, no acute distress RESPIRATORY: Lungs sounds diminished bilaterally. Respirations even, nonlabored. Currently on room air with oxygen saturation 96%. Able to achieve 7810-5596 mL on incentive spirometry. Strong nonproductive cough. CARDIOVASCULAR: S1, S2 present. Regular rate and rhythm, sinus rhythm on telemetry. Sternum stable. Palpable peripheral pulses bilaterally. No edema present. No calf pain or tenderness noted. Heart hugger in place with patient demonstrating appropriate use. Antiembolism stockings, SCDs present. GASTROINTESTINAL: Abdomen soft, nontender, nondistended. Active bowel sounds present 4 quadrants. Tolerating diet. Positive bowel movement 09/22 GENITOURINARY: Continues to void INTEGUMENTARY: Skin is warm and dry with evidence of good perfusion. Anterior chest incision well approximated. Left lower extremity EVH site well approximated without redness or drainage. NEUROLOGIC: Cranial nerves II through XII intact MUSKULOSKELETAL: Able to move all extremities, strength equal bilaterally, gait normal PSYCHIATRIC: Alert and oriented to person place and time, appropriate affect, intact judgment and insight - Allied health notes Allied health notes reviewed: nursing - Labs CBC & Chem 7: 09/23/23 09:00 09/23/23 09:00 Labs: Abnormal Lab Results - Last 24 Hours (Table) 09/24/23 Range/Units 20:18 POC Glucose (mg/dL) 111 H (70-110) mg/dL - Imaging and Cardiology Chest x-ray: image reviewed Assessment and Plan Assessment: Coronary artery disease, unstable angina, status post single-vessel off-pump CABG Multiple myocardial infarctions with multiple stents Hypertension Hyperlipidemia, cholesterol 203, LDL 123 Current tobacco dependence with cessation upon admission to the hospital, FEV1 91% of predicted Nightly marijuana use for anxiety Previous heavy EtOH use with admission earlier this year to [facility], does admit to still drinking about 2 beers a month Peripheral arterial disease with claudication, right TRELL 0.71, left TRELL 0.64 Left internal carotid stenosis 100% with possible TIA in the past Medical noncompliance Family history of premature coronary artery disease Plan: Continue to maximize medical therapy with aspirin, statin, Plavix, beta-ingrid Continue losartan for afterload reduction Continue amiodarone for A-fib prophylaxis, patient has had no A-fib at this point, will discharge on 400 mg daily for 1 week Encourage incentive spirometry use 10 times every hour while awake. Bronchodil ators per pulmonology Increase activity, ambulate as tolerated. PT/OT/cardiac rehab consulted Will monitor labs and x-rays every other day, electrolyte replacement per protoc ol GI/DVT prophylaxis Insulin management per internal medicine Pain control with current medication regimen Continue to monitor and record strict accurate intake and output Daily weights Discharge planning in progress. Anticipate discharge once placement has been found and insurance authorization obtained More recommendations to follow
--- NOTE | 2023-09-25 09:32 | XR ---
EXAMINATION TYPE: XR chest 2V DATE OF EXAM: 09/25/2023 HISTORY: post cardiac surgery COMPARISON: 09/23/2023 TECHNIQUE: Single view of the chest is submitted. FINDINGS: Sternotomy wires are in place as well as left atrial clip. Discoid atelectasis left lower lobe contin ues to be present as well as minimal blunting left costophrenic angle. No evidence for pneumothorax. Proving aeration right lung. The heart is stable. Hilar and mediastinal structures are within normal limits. Degenerative changes are seen of the dorsal spine. IMPRESSION: 1. Discoid atelectasis left lower lobe continues to be present as well as minimal blunting left cost ophrenic angle. No evidence for pneumothorax. Proving aeration right lung.
--- NOTE | 2023-09-25 10:11 | P.PN ---
Subjective Progress Note Date: 09/25/23 Patient is a 58-year-old male with history of CAD status post stents, hypertension, hyperlipidemia, nicotine dependence, anxiety with depression and nightly cannabis use. He presented to the emergency department on 09/08/2023 secondary to a chief complaint of chest pain. He underwent evaluation in the emergency department. Vital signs upon arrival showed BP 160/90, HR 80, RR 18, T 98.6 F, and SpO2 of 96% on RA. EKG was completed showing normal sinus rhythm at 68 bpm with prominent Q waves in inferior leads. Chest x-ray was negative. CBC showed WBC count of 12.4. Coagulation profile normal findings. BMP unremarkable. Magnesium was 1.9. Liver profile unremarkable. Troponin < 0.012. Patient was admitted under services with consultation to cardiology. Troponins trended overnight <0.012 x 3. Echocardiogram showed a preserved EF of 50 to 55% with no significant valvular or structural abnormalities reported. Lipid profile revealed TG of 164 and T. Chol 203.00. A1c 5.5%. Patient went for a cardiac stress test which was positive for reversible ischemia. Cardiac catheterization revealed 80% stenosis of mid LAD and 100% stenosis of RCA. Cardiology stated patient was not an appropriate candidate for PCI with stenting as he has shown evidence of in-stent restenosis and consulted CT surgery for evaluation of CABG. He underwent CABG on 09/16. Extubated successfully and downgraded to stepdown unit. Plans for discharge to rehab soon as bed available. 09/23 Patient seen and examined at bedside. No acute events overnight. No complaints. CXR shows atelectasis in the LLL. Last BM 2 days ago. CBC and BMP pending. General: Nontoxic, no distress Derm: Warm, dry Head: Atraumatic, normocephalic, symmetric Eyes: EOMI, no lid lag, anicteric sclera Mouth: No lip lesion, mucus membranes moist Cardiovascular: S1S2 reg, no murmur Lungs: CTA bilateral, no rhonchi, no rales, no accessory muscle use Ext: No gross muscle atrophy, no edema, no contractures Psych: Alert and oriented, cooperative Occlusive CAD with history of stenting (x7) status post CABG 09/16: ASA 325 mg PO QD. Lipitor 40 mg PO QD. Plavix 75 mg PO QD. Metoprolol [address] surgery recommends labs every other day and discharge to SNF when bed available. Pulmonary nodule: CT chest was completed and radiology report reviewed showing a right upper lobe 4 mm pulmonary nodule. Patient high risk secondary to smoking history will need repeat CT chest in 12 months. Hypertension: Metoprolol as above. Losartan 50 mg PO QD. Hyperlipidemia: Lipitor as above. Nicotine dependence: Advised to quit. Anxiety Constipation: Senokot-S 2 tab PO QHS PRN. Milk of Mag 2400 mg PO BID PRN. Homelessness: and case management on board for SNF. CODE STATUS: FULL CODE DVT Prophylaxis: Heparin SQ GI Prophylaxis: Protonix PO Designated medical POA if patient is not able to make medical decisions for themselves: I have reviewed the following consultant education notes: CT surgery I have reviewed the results of the following tests: CBC, BMP. I have ordered the following tests: I have discussed the care of this patient with the following independent historian: Case management I have independently interpreted the following test below: CXR I have discussed the management of this patient with the following physician: Objective - Vital Signs Vital signs: Vital Signs Temp 98.0 F 09/25/23 04:00 Pulse 69 09/25/23 07:41 Resp 16 09/25/23 04:00 BP 128/72 09/25/23 04:00 Pulse Ox 96 09/25/23 07:28 FiO2 50 09/17/23 15:00 Intake & Output 09/24/23 09/25/23 09/25/23 18:59 06:59 18:59 Intake Total 360 Balance 360 Weight 57.4 kg Intake: Oral 360 Other: Voiding Method Toilet Toilet Urinal Urinal # Voids 4 1 # Bowel Movements 0 ABP, PAP, CO, CI - Last Documented Arterial Blood Pressure 120/95 Pulmonary Artery Pressure 29/10 Cardiac Output 6.9 Cardiac Index 4.3 - Labs CBC & Chem 7: 09/23/23 09:00 09/23/23 09:00 Labs: Abnormal Lab Results - Last 24 Hours (Table) 09/24/23 Range/Units 20:18 POC Glucose (mg/dL) 111 H (70-110) mg/dL
[2023-09-25 10:34] LABS: HCT 36.9 % (39.0-53.0); HGB 12.2 gm/dL (13.0-17.5); MCH 31.6 pg (25.0-35.0); Mean Platelet Volume 8.8; Platelet Count 335 k/uL (150-450); RBC 3.84 m/uL (4.30-5.90); RDW 13.7 % (11.5-15.5); WBC 10.2 k/uL (3.8-10.6)
[2023-09-25 10:51] LABS: African American GFR (CKD) >90 (>60 ml/min/1.73 sqM); Anion Gap 7 mmol/L; Blood Urea Nitrogen 17 mg/dL (9-20); Calcium 8.9 mg/dL (8.4-10.2); Carbon Dioxide 24 mmol/L (22-30); Chloride 105 mmol/L (98-107); Glucose 97 mg/dL (74-99); Non-African American GFR(CKD) >90 (>60 ml/min/1.73 sqM); Potassium 4.2 mmol/L (3.5-5.1); Sodium 136 mmol/L (137-145)
[2023-09-25 11:46] LABS: Glucose,Whole Blood 87 mg/dL (70-110)
--- NOTE | 2023-09-25 11:59 | P.PN ---
Subjective Progress Note Date: 09/25/23 Principal diagnosis: Chest pain. 58-year-old male patient known history of coronary artery disease with previous coronary stenting along with hypertension hyperlipidemia and previous history of tobacco marijuana smoking and previous history of heavy alcohol drinking along with history of PAD, carotid artery stenosis on the left and a strong family history of coronary disease. The patient presented with complaints of chest pain and the patient underwent a cardiac catheterization the patient was found to have 80% stenosis of the LAD in its mid segment, 100% ostial RCA, 100% in- stent restenosis of the RCA and right to left collaterals and filling of the PDA and PL branches. The patient is currently being worked up for coronary artery bypass surgery. The patient had negative troponins. Renal function is stable with a normal creatinine, normal electrolytes, normal CBC and the viral screen was negative and the chest x-ray showed no acute cardiopulmonary abnormalities and the patient further had a CT scan of the chest on 09/11/2023 that showed no acute thoracic process, 4 mm right upper lobe pulmonary nodule, moderate to severe three-vessel coronary disease along with mild atherosclerotic disease involving the aorta and its branches and moderate atherosclerotic disease involving the bilateral renal arteries and mild background COPD. Echo done on 09/11/2023 showed preserved LV function along with segmental wall motion abnormalities involving the inferior and septal wall and the carotid Dopplers showed completely occluded left internal carotid artery without any flow. The patient is currently on room air oxygen with a pulse ox of 95%. The patient was seen by cardiothoracic surgery. He is not normal sinus rhythm. Plan for bypass surgery on 09/17/2023. 09/13/2023, the patient remains free of any chest pain. No specific complaints. The plan is to undergo coronary bypass surgery next week. The patient denies having any new complaints otherwise. Surgery will be done by Dr. Dee. Hemoglobin is at least 15.5 with a white cell count of 8.9. Electrolytes are within normal limits. 09/14/2023, no new complaints and the patient is still scheduled to undergo surgery on 09/17/2023. Ambulating. Incentive spirometer. No complaints. Cardiac rhythm remained sinus. No labs from today. Medications remain unchanged. The patient is on room air oxygen. 09/15/2023, patient is on the 6 floor. Sitting up on the chair. Tolerating diet. No chest pain. Using incentive spirometer. Cardiac rhythm is sinus. No signs of any delirium tremens. Labs from 09/13/2023 were reviewed. No other labs for today. The patient is seen today September 16, 2023 in follow-up on the regular medical floor. He is awake and alert in no acute distress. Sitting up in bed. He denies any shortness of breath, cough or congestion. He is maintaining good O2 saturations in the 90s on room air. He is working well with his incentive spirometer. He denies any chest pain or palpitations. White count 9.0. Hemoglobin 16.2. Platelets 203. Sodium 137. Potassium 4.4. Bicarb 21. BUN 21. Creatinine 0.9. Glucose 90. He remains on heparin for DVT prophylaxis. The patient is seen today September 17, 2023 postoperatively in the intensive care unit. He did undergo an off-pump coronary artery bypass grafting x 1 utilizing a CARRILLO to the LAD with a left atrial appendage ligation. Postoperative day #0. He is intubated on the mechanical ventilator and assist-control mode at a rate of 16, tidal volume 450, FiO2 100% and a PEEP of 5. Arterial blood gases revealed a PaO2 of 349, P CO2 of 45 and a pH of 7.37. White count 11.9. Hemoglobin 13.2. Platelets 137. Sodium 138. Potassium 3.9. Bicarb 24. BUN 17. Creatinine 0.67. Glucose 116. AST 26. ALT 26. Chest x-ray reveals bilateral platelike atelectasis left greater than right. Small left apical pneumothorax may be present. He does have mediastinal and left chest tubes present. [place]-Nataly catheter present. Endotracheal and nasogastric tubes in place. He is currently sedated on propofol at 20 mcg/kg/min being transition to Precedex currently at 0.6 mcg/kg/h. He is on clevidipine at 2 mg an hour. Nitroglycerin drip at 5 mcg/min. Insulin drip at 1 unit/h. Amiodarone drip at 1 mg/min. Lactated Ringer's at 50 MLS per hour. Cardiac output is 3.5. Cardiac index 2.2. PA pressures 27/11. CVP of 3. Patient was reevaluated today on 09/18/2023, patient is POD #1 off pump coronary artery bypass grafting x 1, left internal thoracic artery (in-situ) to left anterior descending coronary artery, endoscopic left greater saphenous vein harvest, left atrial appendage ligation using #35mm AtriClip, graft flow measurements using the [employer] flow meter system, trans-esophageal echo, patient was extubated yesterday at 1530. Patient is doing quite well, he is in sinus rhythm, hemodynamically stable, on IV amiodarone at 0.5 mg/min, he is on nitroglycerin drip as well as Cleviprex drip at 20 mg/h. Cardiac output is 6.9 cardiac index is 4.3, patient is receiving insulin at 1 unit/h. LR at 50 cc/h. Patient has mostly as expected postoperative pain, receiving Dilaudid as needed for pain control. Continues to have right IJ [place]-Nataly catheter, mediastinal/left pleural chest tubes, and again does not seem to be uncomfortableWBC count is 18.2 hemoglobin 14.3. Basic metabolic profile is nor mal with a relatively normal renal profile. Chest x-ray is mostly showing as expected postoperative changes no acute process otherwise as noted Patient was evaluated today on 09/19/2023, POD #2 off pump coronary artery bypass grafting x 1, left internal thoracic artery (in-situ) to left anterior de scending coronary artery, endoscopic left greater saphenous vein harvest, left atrial appendage ligation using #35mm AtriClip, graft flow measurements using the [employer] flow meter system, trans-esophageal echo patient is sitting in a recliner, doing well, relatively asymptomatic, pain seems to be fairly under control with oxycodone and Dilaudid. Patient is heme medically stable, on 2 L nasal cannula, still doing poorly with incentive spirometry achieving no more than 750 cc patient continues to have multiple catheters and lines, this will likely be removed in the next 24 to 48 hours. Overall the patient is improving, and his clinical course is as expected. WBC count is 18.3 hemoglobin is 13.3 basic metabolic profile is normal and renal profile is normal. Chest x-ray today showed mostly postoperative cardiac surgery changes otherwise negative Reevaluated today on 09/20/2023, patient is now postoperative day #3. Continues to do quite well, relatively asymptomatic except for some postsurgical pain. Patient is on room air, he is not in any distress. WBC count is 10.7 hemoglobin 11.7 basic metabolic profile is normal and renal profile is normal. Chest x-ray showed bibasilar atelectasis. Patient was evaluated today on 09/21/2023, he is now postoperative day #4. Patient is sitting in the recliner, he is now in the stepdown unit, has some surgical pain which is expected, fairly well-controlled. Achieving about 1500 cc on his incentive spirometry, patient has been ambulating with assistance in the hallway. Patient is basically homeless, he may have to be discharged to a hotel at discharge and that will likely happen on Saturday. His chest x-ray is showing mostly bibasilar atelectasis, l labs were reviewed, Relatively normal CBC and normal basic metabolic profile, normal renal profile 3 today on 09/22/2023, patient is now postoperative day #5, he is doing great. On room air, does not seem to be in any distress, placement is in progress, I believe the patient is being considered for rehab placement at [facility]. Progress note dated September 23, 2023. The patient was seen today in room 354. He is on room air. No IV fluids. The patient is hoping to hear that he has been discharged from the hospital. No orders yet. Current labs include a white count 9.3, hemoglobin 11.7, hematocrit 35.8, and normal platelet count. Sodium, potassium, chloride, CO2, anion gap, BUN, and creatinine, are all normal. Glucose is 140. Calcium is 9. Magnesium is 2.0. Chest x-ray shows scattered parenchymal opacities, and small bilateral effusions. Progress note dated September 24, 2023. The patient is seen today room 354. This is a 58-year-old gentleman status post bypass surgery. The patient is doing relatively well. He had an off-pump procedure. Currently, he is on room air, and not receiving any IV fluids. Discharge planning is underway. Current labs include a blood glucose of 103. No chest x-ray today as yet. Progress note dated September 25, 2023. The patient is again seen today in room 354. Discharge planning is underway. He is currently on room air. No IV fluids. He has no complaints. He denies any chest pain or chest discomfort. There is no shortness of breath, difficulty breathing, coughing, wheezing, etc. According to the land use planner, the patient may end up either in a rehab facility, or a hotel. Current labs include a white count 10.3, hemoglobin 12.2, hematocrit 36.9, and a normal platelet count. Sodium 136, potassium 4.2, chlorides 105, CO2 24, BUN 17, and creatinine 0.8. Chest x-ray shows some atelectasis in the left lower lobe. Objective - Vital Signs Vital signs: Vital Signs Temp 98.2 F 09/25/23 08:25 Pulse 68 09/25/23 11:41 Resp 16 09/25/23 08:25 BP 100/67 09/25/23 08:25 Pulse Ox 97 09/25/23 08:25 FiO2 50 09/17/23 15:00 Intake & Output 09/24/23 09/25/23 09/25/23 18:59 06:59 18:59 Intake Total 360 120 Balance 360 120 Weight 57.4 kg Intake: Oral 360 120 Other: Voiding Method Toilet Toilet Toilet Urinal Urinal Urinal # Voids 4 1 # Bowel Movements 0 ABP, PAP, CO, CI - Last Documented Arterial Blood Pressure 120/95 Pulmonary Artery Pressure 29/10 Cardiac Output 6.9 Cardiac Index 4.3 - Exam No acute distress, oriented 3. No respiratory distress. Room air saturation is 97 %. HEENT examination is grossly unremarkable. Mucous membranes are moist. No oral lesions. Neck supple. Full range of motion. No adenopathy thyromegaly or neck vein distention. Cardiovascular examination reveals regular rhythm rate. S1-S2 normal. No S3 or S4. No discernible murmur noted. Heart rate is 68 bpm. Lungs reveal clear breath sounds. Breath sounds are equal bilaterally. No adventitious lung sounds including wheezes rhonchi or crackles. Room air saturation is 97 %. Abdomen soft bowel sounds are heard. No masses or tenderness. Extremities are intact. No cyanosis clubbing or edema. Skin is without rash or lesion. Neurologic examination is brief but nonfocal. - Labs CBC & Chem 7: 09/25/23 09:00 09/25/23 09:00 Labs: Abnormal Lab Results - Last 24 Hours (Table) 09/24/23 09/25/23 09/25/23 Range/Units 20:18 09:00 09:00 RBC 3.84 L (4.30-5.90) m/uL Hgb 12.2 L (13.0-17.5) gm/dL Hct 36.9 L (39.0-53.0) % Sodium 136 L (137-145) mmol/L POC Glucose (mg/dL) 111 H (70-110) mg/dL Assessment and Plan Assessment: Postoperative day #8, status post off-pump bypass surgery, for symptomatic coronary disease, and unstable angina. Prior history of myocardial infarction, with multiple stent placements. Generalized anxiety disorder. Dyslipidemia. Benign essential hypertension. Peripheral vascular occlusive disease. Medical noncompliance. Family history of premature coronary disease. Plan: Plan dated September 23, 2023. The patient appears to be doing relatively well. He is seen today in room 354. He is on room air. He is not receiving any IV fluids. The patient is apparently homeless, and discharge planning is underway. Labs, x-rays, medications are reviewed. His chest x-ray is reviewed. We will continue to follow make recommendations along the way. The patient continue with incentive spirometry. He also continues on GI and DVT prophylaxis. Plan dated September 24, 2023. The patient is currently on room air. Is not receiving any IV fluids. Today is postoperative day #7. Discharge planning underway. The patient is apparently homeless, and, social work is working on getting the patient properly discharged. Labs, x-rays, and medications are reviewed. We will continue to follow make recommendations along the way. We encourage deep breathing, coughing, clearing of secretions, and hourly use of the incentive spirometer. Plan dated September 25, 2023. The patient is doing well. He remains off of supplemental oxygen, or IV fluids. The patient is currently being evaluated for discharge either to a rehab facility, or a hotel. Labs, x-rays, and all medications are reviewed. Will continue to asked the patient to do the incentive spirometer on a regular basis. Chest x-ray shows some atelectasis in the left lower lobe. In addition, we recommend deep breathing, coughing, and clearing of secretions. Time with Patient: Less than 30
--- NOTE | 2023-09-25 12:16 | P.PN ---
Subjective HISTORY OF PRESENT ILLNESS: Patient examined this morning the bedside. He is sitting on the side of the bed. Patient currently denies any chest pain or pressure. He denies any shortness of breath. He does report feeling anxious about his surgery tomorrow. Echocardiogram completed revealing ejection fraction 50 to 55%. Vital signs are stable. September 18: The patient is sitting up in the chair, complaining of incisional chest discomfort and had some diaphoresis. His breathing is relatively stable. He continues to be in sinus mechanism. He denies any dizziness or palpitations. He has no significant nausea. His urinary output is stable. There is no episodes of malignant arrhythmia. Hemodynamically he is stable on no vasopressors. Medications: Aspirin, Cordarone 400 mg twice a day, Lipitor 40 mg daily, Plavix 75 mg daily, losartan 50 mg daily, metoprolol tartrate 25 mg 3 times daily. LAB: Hemoglobin 13.3, BUN 21, creatinine 0.90. Potassium 4.7. 09/19 And has been transferred out of the intensive care unit and seen today on the cardiac stepdown unit. Patient states he is feeling okay overall feeling better. He is using incentive spirometry frequently. He is working with physical therapy and walking in the hallway. His appetite is slightly better from yesterday but not back to normal. Repeat chest x-ray completed this morning shows no acute concerns. Blood pressure 99/65, heart rate 88, pulse ox 93% on room air. He is been afebrile. WBC 10.7, hemoglobin 11.7, platelet count 128. Potassium 4.2, BUN 30 creatinine 0.94. 09/21/2023 Patient examined this morning at the bedside. Patient denies chest pain or pr essure. He denies shortness of breath. Telemetry reveals sinus mechanism. Vital signs stable. Most recent blood pressure 107/70. Discharge planning continues and attempting to find placement for the patient as he was living in a hotel. Patient states he was up ambulating this morning and did have some nausea which was improved with Zofran. 09/22/2023 Patient examined this morning. Patient is sitting up in the chair. Patient reports surgical pain 10/08. He denies any chest pain or pressure. He denies any shortness of breath. He has been up ambulating in the [place]enn[place]. Telemetry reveals sinus mechanism 09/23/2023 Patient examined this morning. He is sitting up in the chair. He denies chest pain or pressure. He denies shortness of breath. He reports incisional discomfort this morning. He also complains of constipation. He has been up ambulating. 09/24/2023 Patient examined this morning. He is sitting up in the chair. He denies chest pain or pressure. He denies shortness of breath. He reports incisional discomfort this morning. He has been up ambulating. 09/25/2023 Patient examined this morning. He is sitting up in the chair. He denies chest pain or pressure. He denies shortness of breath. He has been up ambulating in the hallway. Vital signs are stable. PHYSICAL EXAM: VITAL SIGNS: Reviewed. GENERAL: Well-developed in no acute distress. NECK: Supple. No JVD or thyromegaly LUNGS: Respirations even and unlabored. Lungs essentially clear to auscultation bilaterally. HEART: Regular rate and rhythm. S1 and S2 heard. EXTREMITIES: Normal range of motion. No clubbing or cyanosis. Peripheral pulses intact. No lower extremity edema ASSESSMENT: Chest pain s/p cardiac catheterization revealing 80% mid LAD stenosis, 100% ostial RCA stenosis, prior stenting of RCA with 100% in-stent restenosis Status post single-vessel CABG, CARRILLO to LAD Chronically occluded RCA, not felt to be candidate for bypass grafting Coronary artery disease with history of multiple stents Hypertension Hyperlipidemia Peripheral arterial disease Left internal carotid stenosis, 100% History of alcohol abuse with admission earlier this year to [facility] Nicotine dependence Marijuana use Family history of premature coronary artery disease PLAN: Continue postoperative management per CT surgery Continue current cardiac medications Continue telemetry monitoring. Continue to monitor blood pressure Smoking cessation recommended. Patient to be referred to [place] quit line upon discharge. Discharge planning ongoing. Stable for discharge from a cardiac standpoint. Further recommendations pending patient course Nurse practitioner note has been reviewed by physician. Signing provider agrees with the documented findings, assessment, and plan of care documented by LACQUER SPRAYER as a scribe. Objective - Vital Signs Vital signs: Vital Signs Temp 98.2 F 09/25/23 08:25 Pulse 68 09/25/23 11:41 Resp 16 09/25/23 08:25 BP 100/67 09/25/23 08:25 Pulse Ox 97 09/25/23 08:25 FiO2 50 09/17/23 15:00 Intake & Output 09/24/23 09/25/23 09/25/23 18:59 06:59 18:59 Intake Total 360 120 Balance 360 120 Weight 57.4 kg Intake: Oral 360 120 Other: Voiding Method Toilet Toilet Toilet Urinal Urinal Urinal # Voids 4 1 # Bowel Movements 0 ABP, PAP, CO, CI - Last Documented Arterial Blood Pressure 120/95 Pulmonary Artery Pressure 29/10 Cardiac Output 6.9 Cardiac Index 4.3 - Labs CBC & Chem 7: 09/25/23 09:00 09/25/23 09:00 Labs: Abnormal Lab Results - Last 24 Hours (Table) 09/24/23 09/25/23 09/25/23 Range/Units 20:18 09:00 09:00 RBC 3.84 L (4.30-5.90) m/uL Hgb 12.2 L (13.0-17.5) gm/dL Hct 36.9 L (39.0-53.0) % Sodium 136 L (137-145) mmol/L POC Glucose (mg/dL) 111 H (70-110) mg/dL
[2023-09-25 16:12] LABS: Glucose,Whole Blood 135 mg/dL (70-110)
[2023-09-25] MEDS ORDERED: SODIUM ZIRCONIUM CYCLOSILICATE 10 GM PACKET PO ONE (18:00)
[2023-09-25 19:59] LABS: Glucose,Whole Blood 139 mg/dL (70-110)
[2023-09-26 06:14] LABS: Glucose,Whole Blood 89 mg/dL (70-110)
--- NOTE | 2023-09-26 09:06 | P.PN ---
Subjective Progress Note Date: 09/26/23 Principal diagnosis: Coronary artery disease, unstable angina. Past medical history significant for multiple myocardial infarctions with multiple stents, hypertension, hyperlipide bart, chronic ongoing tobacco dependence with cessation upon admission to the hospital, nightly marijuana use for anxiety, previous heavy EtOH use with admission earlier this year to [place], does admit to still drinking about 2 beers a month, peripheral arterial disease with claudication, left internal carotid stenosis 100% with possible TIA in the past, medical noncompliance, family history of premature coronary artery disease. POD #9 off pump coronary artery bypass grafting x 1, left internal thoracic artery (in-situ) to left anterior descending coronary artery, endoscopic left greater saphenous vein harvest, left atrial appendage ligation using #35mm AtriClip, graft flow measurements using the Anafore-Stim flow meter system, intraoperative transesophageal echocardiogram performed by anesthesia. Postoperative acute blood loss anemia, expected given hemodilution. The patient was seen and examined in follow-up today September 26, 2023 at his bedside on the third floor cardiac stepdown unit. He is currently sitting up to the bedside chair, is awake, alert, oriented x 3 and is in no acute apparent distress. Denies any complaints of pain or shortness of breath at this time. Remote telemetry is showing normal sinus rhythm heart rate 65 bpm. Oxygen saturations are 98% on room air and he is achieving 1750 mL on his incentive spirometry with encouragement. He reports he has been up ambulating in the hallway with standby assistance from nursing and therapy staff and tolerating w ell. Discharge planning is in place. Objective - Vital Signs Vital signs: Vital Signs Temp 97.6 F 09/26/23 03:15 Pulse 69 09/26/23 08:46 Resp 18 09/26/23 08:39 BP 145/88 09/26/23 08:39 Pulse Ox 100 09/26/23 08:39 FiO2 50 09/17/23 15:00 Intake & Output 09/25/23 09/26/23 09/26/23 18:59 06:59 18:59 Intake Total 240 1017 Output Total 850 Balance 240 167 Weight 57 kg Intake: Oral 240 1017 Output: Urine 850 Other: Voiding Method Toilet Toilet Urinal Urinal # Voids 2 ABP, PAP, CO, CI - Last Documented Arterial Blood Pressure 120/95 Pulmonary Artery Pressure 29/10 Cardiac Output 6.9 Cardiac Index 4.3 - Exam CONSTITUTIONAL: Appears comfortable, cooperative, no acute distress. RESPIRATORY: Lungs sounds diminished bilaterally. Respirations symmetrical, nonlabored. Currently on room air with oxygen saturation 98%, achieving 1750 mL on his incentive spirometry with encouragement. Strong cough. CARDIOVASCULAR: S1, S2 present. Regular rate and rhythm, remote telemetry showing normal sinus rhythm heart rate 65 bpm. Palpable peripheral pulses bilaterally. No edema present. No calf pain or tenderness noted. Heart hugger in place with patient demonstrating appropriate use. Antiembolism stockings, SCDs present. GASTROINTESTINAL: Abdomen soft, nontender, nondistended. Active bowel sounds present 4 quadrants. Tolerating diet. Bowel movement on September 23, 2023. GENITOURINARY: Continues to void. Urine output 850 mL in the last 8 hours. INTEGUMENTARY: Skin is warm and dry. No clubbing or cyanosis is present. NEUROLOGIC: Cranial nerves II through XII intact. No focal deficits. MUSKULOSKELETAL: Able to move all extremities, strength equal bilaterally, gait normal. PSYCHIATRIC: Alert and oriented to person place and time, appropriate affect, intact judgment and insight. - Allied health notes Allied health notes reviewed: nursing - Labs CBC & Chem 7: 09/25/23 09:00 09/25/23 09:00 Labs: Abnormal Lab Results - Last 24 Hours (Table) 09/25/23 09/25/23 09/25/23 Range/Units 09:00 09:00 16:11 RBC 3.84 L (4.30-5.90) m/uL Hgb 12.2 L (13.0-17.5) gm/dL Hct 36.9 L (39.0-53.0) % Sodium 136 L (137-145) mmol/L POC Glucose (mg/dL) 135 H (70-110) mg/dL 09/25/23 Range/Units 19:57 RBC (4.30-5.90) m/uL Hgb (13.0-17.5) gm/dL Hct (39.0-53.0) % Sodium (137-145) mmol/L POC Glucose (mg/dL) 139 H (70-110) mg/dL Assessment and Plan Assessment: Coronary artery disease, unstable angina, status post single-vessel off-pump CABG Multiple myocardial infarctions with multiple stents Hypertension Hyperlipidemia, cholesterol 203, LDL 123 Chronic tobacco dependence with cessation upon admission to the hospital, preoperative FEV1 91% of predicted Nightly marijuana use for anxiety Previous heavy EtOH use with admission earlier this year to [place], does admit to still drinking about 2 beers a month Peripheral arterial disease with claudication, right TRELL 0.71, left TRELL 0.64 Left internal carotid stenosis 100% with possible TIA in the past Medical noncompliance Family history of premature coronary artery disease Postoperative acute blood loss anemia, expected given hemodilution Plan: Continue to maximize medical therapy with aspirin, statin, Plavix, beta-ingrid. Will increase beta-ingrid as tolerated. Continue losartan for afterload reduction. Continue amiodarone for A-fib prophylaxis, patient has had no A-fib at this point, will discharge on 400 mg daily for 1 week. Encourage incentive spirometry use 10 times every hour while awake. Bronchodilators per pulmonology. Increase activity, ambulate as tolerated. PT/OT/cardiac rehab following. Will monitor labs and chest x-rays every other day, electrolyte replacement per protocol. GI/DVT prophylaxis. Insulin management per internal medicine. Pain control with current medication regimen. Continue to monitor and record strict accurate intake and output. Daily weights. Discharge planning in progress. Anticipate discharge once placement has been found and insurance authorization obtained. More recommendations to follow based on patient's clinical course. Time with Patient: Greater than 30
--- NOTE | 2023-09-26 10:46 | P.PN ---
Subjective Progress Note Date: 09/26/23 Patient is a 58-year-old male with history of CAD status post stents, hypertension, hyperlipidemia, nicotine dependence, anxiety with depression and nightly cannabis use. He presented to the emergency department on 09/08/2023 secondary to a chief complaint of chest pain. He underwent evaluation in the emergency department. Vital signs upon arrival showed BP 160/90, HR 80, RR 18, T 98.6 F, and SpO2 of 96% on RA. EKG was completed showing normal sinus rhythm at 68 bpm with prominent Q waves in inferior leads. Chest x-ray was negative. CBC showed WBC count of 12.4. Coagulation profile normal findings. BMP unremarkable. Magnesium was 1.9. Liver profile unremarkable. Troponin < 0.012. Patient was admitted under services with consultation to cardiology. Troponins trended overnight <0.012 x 3. Echocardiogram showed a preserved EF of 50 to 55% with no significant valvular or structural abnormalities reported. Lipid profile revealed TG of 164 and T. Chol 203.00. A1c 5.5%. Patient went for a cardiac stress test which was positive for reversible ischemia. Cardiac catheterization revealed 80% stenosis of mid LAD and 100% stenosis of RCA. Cardiology stated patient was not an appropriate candidate for PCI with stenting as he has shown evidence of in-stent restenosis and consulted CT surgery for evaluation of CABG. He underwent CABG on 09/16. Extubated successfully and downgraded to stepdown unit. Plans for discharge to rehab soon as bed available. 09/25 Patient seen and examined at bedside. No acute events overnight. No complaints. CT surgery note reviewed, discharge planning in progress. General: Nontoxic, no distress Derm: Warm, dry Head: Atraumatic, normocephalic, symmetric Eyes: EOMI, no lid lag, anicteric sclera Mouth: No lip lesion, mucus membranes moist Cardiovascular: S1S2 reg, no murmur Lungs: CTA bilateral, no rhonchi, no rales, no accessory muscle use Ext: No gross muscle atrophy, no edema, no contractures Psych: Alert and oriented, cooperative Occlusive CAD with history of stenting (x7) status post CABG 09/16: ASA 325 mg PO QD. Lipitor 40 mg PO QD. Plavix 75 mg PO QD. Metoprolol [address] surgery recommends labs every other day and discharge to SNF when bed available. Pulmonary nodule: CT chest was completed and radiology report reviewed showing a right upper lobe 4 mm pulmonary nodule. Patient high risk secondary to smoking history will need repeat CT chest in 12 months. Hypertension: Metoprolol as above. Losartan 50 mg PO QD. Hyperlipidemia: Lipitor as above. Nicotine dependence: Advised to quit. Anxiety Constipation: Senokot-S 2 tab PO QHS PRN. Milk of Mag 2400 mg PO BID PRN. Homelessness: SW and case management on board for SNF. CODE STATUS: FULL CODE DVT Prophylaxis: Heparin SQ GI Prophylaxis: Protonix PO Designated medical POA if patient is not able to make medical decisions for themselves: I have reviewed the following financial planning consultant notes: CT surgery I have reviewed the results of the following tests: I have ordered the following tests: I have discussed the care of this patient with the following independent historian: Case management I have independently interpreted the following test below: I have discussed the management of this patient with the following physician: Objective - Vital Signs Vital signs: Vital Signs Temp 97.6 F 09/26/23 03:15 Pulse 69 09/26/23 08:46 Resp 18 09/26/23 08:39 BP 145/88 09/26/23 08:39 Pulse Ox 100 09/26/23 08:39 FiO2 50 09/17/23 15:00 Intake & Output 09/25/23 09/26/23 09/26/23 18:59 06:59 18:59 Intake Total 240 1017 Output Total 850 Balance 240 167 Weight 57 kg Intake: Oral 240 1017 Output: Urine 850 Other: Voiding Method Toilet Toilet Toilet Urinal Urinal Urinal # Voids 2 ABP, PAP, CO, CI - Last Documented Arterial Blood Pressure 120/95 Pulmonary Artery Pressure 29/10 Cardiac Output 6.9 Cardiac Index 4.3 - Labs CBC & Chem 7: 09/25/23 09:00 09/25/23 09:00 Labs: Abnormal Lab Results - Last 24 Hours (Table) 09/25/23 09/25/23 09/25/23 Range/Units 09:00 16:11 19:57 Sodium 136 L (137-145) mmol/L POC Glucose (mg/dL) 135 H 139 H (70-110) mg/dL
[2023-09-26 11:43] LABS: Glucose,Whole Blood 100 mg/dL (70-110)
[2023-09-26 11:44] VITALS: BP 126/79; RESP 16; TEMP 98
--- NOTE | 2023-09-26 11:48 | P.PN ---
Subjective HISTORY OF PRESENT ILLNESS: Patient examined this morning the bedside. He is sitting on the side of the bed. Patient currently denies any chest pain or pressure. He denies any shortness of breath. He does report feeling anxious about his surgery tomorrow. Echocardiogram completed revealing ejection fraction 50 to 55%. Vital signs are stable. September 18: The patient is sitting up in the chair, complaining of incisional chest discomfort and had some diaphoresis. His breathing is relatively stable. He continues to be in sinus mechanism. He denies any dizziness or palpitations. He has no significant nausea. His urinary output is stable. There is no episodes of malignant arrhythmia. Hemodynamically he is stable on no vasopressors. Medications: Aspirin, Cordarone 400 mg twice a day, Lipitor 40 mg daily, Plavix 75 mg daily, losartan 50 mg daily, metoprolol tartrate 25 mg 3 times daily. LAB: Hemoglobin 13.3, BUN 21, creatinine 0.90. Potassium 4.7. 09/19 And has been transferred out of the intensive care unit and seen today on the cardiac stepdown unit. Patient states he is feeling okay overall feeling better. He is using incentive spirometry frequently. He is working with physical therapy and walking in the hallway. His appetite is slightly better from yesterday but not back to normal. Repeat chest x-ray completed this morning shows no acute concerns. Blood pressure 99/65, heart rate 88, pulse ox 93% on room air. He is been afebrile. WBC 10.7, hemoglobin 11.7, platelet count 128. Potassium 4.2, BUN 30 creatinine 0.94. 09/21/2023 Patient examined this morning at the bedside. Patient denies chest pain or pr essure. He denies shortness of breath. Telemetry reveals sinus mechanism. Vital signs stable. Most recent blood pressure 107/70. Discharge planning continues and attempting to find placement for the patient as he was living in a hotel. Patient states he was up ambulating this morning and did have some nausea which was improved with Zofran. 09/22/2023 Patient examined this morning. Patient is sitting up in the chair. Patient reports surgical pain 10/08. He denies any chest pain or pressure. He denies any shortness of breath. He has been up ambulating in the [place]. Telemetry reveals sinus mechanism 09/23/2023 Patient examined this morning. He is sitting up in the chair. He denies chest pain or pressure. He denies shortness of breath. He reports incisional discomfort this morning. He also complains of constipation. He has been up ambulating. 09/24/2023 Patient examined this morning. He is sitting up in the chair. He denies chest pain or pressure. He denies shortness of breath. He reports incisional discomfort this morning. He has been up ambulating. 09/25/2023 Patient examined this morning. He is sitting up in the chair. He denies chest pain or pressure. He denies shortness of breath. He has been up ambulating in the hallway. Vital signs are stable. 09/25 patient seen and examined. Patient denies any chest pain or pressure. He does still have incisional pain. Is able to walk the hallways. Is awaiting placement. He does have some upset stomach from bowel regimen which she has been taking with some constipation. PHYSICAL EXAM: VITAL SIGNS: Reviewed. GENERAL: Well-developed in no acute distress. NECK: Supple. No JVD or thyromegaly LUNGS: Respirations even and unlabored. Lungs essentially clear to auscultation bilaterally. HEART: Regular rate and rhythm. S1 and S2 heard. EXTREMITIES: Normal range of motion. No clubbing or cyanosis. Peripheral pulses intact. No lower extremity edema ASSESSMENT: Chest pain s/p cardiac catheterization revealing 80% mid LAD stenosis, 100% ostial RCA stenosis, prior stenting of RCA with 100% in-stent restenosis Status post single-vessel CABG, CARRILLO to LAD Chronically occluded RCA, not felt to be candidate for bypass grafting Coronary artery disease with history of multiple stents Hypertension Hyperlipidemia Peripheral arterial disease Left internal carotid stenosis, 100% History of alcohol abuse with admission earlier this year to [place] Nicotine dependence Marijuana use Family history of premature coronary artery disease PLAN: Continue postoperative management per CT surgery Continue current cardiac medications Continue telemetry monitoring. Continue to monitor blood pressure Smoking cessation recommended. Patient to be referred to [place] quit line upon discharge. Discharge planning ongoing. Stable for discharge from a cardiac standpoint. Further recommendations pending patient course Objective - Vital Signs Vital signs: Vital Signs Temp 98.0 F 09/26/23 11:43 Pulse 61 09/26/23 11:43 Resp 16 09/26/23 11:43 BP 126/79 09/26/23 11:43 Pulse Ox 100 09/26/23 11:43 FiO2 50 09/17/23 15:00 Intake & Output 09/25/23 09/26/23 09/26/23 18:59 06:59 18:59 Intake Total 240 1017 600 Output Total 850 Balance 240 167 600 Weight 57 kg Intake: Oral 240 1017 600 Output: Urine 850 Other: Voiding Method Toilet Toilet Toilet Urinal Urinal Urinal # Voids 2 ABP, PAP, CO, CI - Last Documented Arterial Blood Pressure 120/95 Pulmonary Artery Pressure 29/10 Cardiac Output 6.9 Cardiac Index 4.3 - Labs CBC & Chem 7: 09/25/23 09:00 09/25/23 09:00 Labs: Abnormal Lab Results - Last 24 Hours (Table) 09/25/23 09/25/23 Range/Units 16:11 19:57 POC Glucose (mg/dL) 135 H 139 H (70-110) mg/dL
--- NOTE | 2023-09-26 12:04 | P.PN ---
Subjective Progress Note Date: 09/26/23 Principal diagnosis: Chest pain. 58-year-old male patient known history of coronary artery disease with previous coronary stenting along with hypertension hyperlipidemia and previous history of tobacco marijuana smoking and previous history of heavy alcohol drinking along with history of PAD, carotid artery stenosis on the left and a strong family history of coronary disease. The patient presented with complaints of chest pain and the patient underwent a cardiac catheterization the patient was found to have 80% stenosis of the LAD in its mid segment, 100% ostial RCA, 100% in- stent restenosis of the RCA and right to left collaterals and filling of the PDA and PL branches. The patient is currently being worked up for coronary artery bypass surgery. The patient had negative troponins. Renal function is stable with a normal creatinine, normal electrolytes, normal CBC and the viral screen was negative and the chest x-ray showed no acute cardiopulmonary abnormalities and the patient further had a CT scan of the chest on 09/11/2023 that showed no acute thoracic process, 4 mm right upper lobe pulmonary nodule, moderate to severe three-vessel coronary disease along with mild atherosclerotic disease involving the aorta and its branches and moderate atherosclerotic disease involving the bilateral renal arteries and mild background COPD. Echo done on 09/11/2023 showed preserved LV function along with segmental wall motion abnormalities involving the inferior and septal wall and the carotid Dopplers showed completely occluded left internal carotid artery without any flow. The patient is currently on room air oxygen with a pulse ox of 95%. The patient was seen by cardiothoracic surgery. He is not normal sinus rhythm. Plan for bypass surgery on 09/17/2023. 09/13/2023, the patient remains free of any chest pain. No specific complaints. The plan is to undergo coronary bypass surgery next week. The patient denies having any new complaints otherwise. Surgery will be done by Dr. Dee. Hemoglobin is at least 15.5 with a white cell count of 8.9. Electrolytes are within normal limits. 09/14/2023, no new complaints and the patient is still scheduled to undergo surgery on 09/17/2023. Ambulating. Incentive spirometer. No complaints. Cardiac rhythm remained sinus. No labs from today. Medications remain unchanged. The patient is on room air oxygen. 09/15/2023, patient is on the 6 floor. Sitting up on the chair. Tolerating diet. No chest pain. Using incentive spirometer. Cardiac rhythm is sinus. No signs of any delirium tremens. Labs from 09/13/2023 were reviewed. No other labs for today. The patient is seen today September 16, 2023 in follow-up on the regular medical floor. He is awake and alert in no acute distress. Sitting up in bed. He denies any shortness of breath, cough or congestion. He is maintaining good O2 saturations in the 90s on room air. He is working well with his incentive spirometer. He denies any chest pain or palpitations. White count 9.0. Hemoglobin 16.2. Platelets 203. Sodium 137. Potassium 4.4. Bicarb 21. BUN 21. Creatinine 0.9. Glucose 90. He remains on heparin for DVT prophylaxis. The patient is seen today September 17, 2023 postoperatively in the intensive care unit. He did undergo an off-pump coronary artery bypass grafting x 1 utilizing a CARRILLO to the LAD with a left atrial appendage ligation. Postoperative day #0. He is intubated on the mechanical ventilator and assist-control mode at a rate of 16, tidal volume 450, FiO2 100% and a PEEP of 5. Arterial blood gases revealed a PaO2 of 349, P CO2 of 45 and a pH of 7.37. White count 11.9. Hemoglobin 13.2. Platelets 137. Sodium 138. Potassium 3.9. Bicarb 24. BUN 17. Creatinine 0.67. Glucose 116. AST 26. ALT 26. Chest x-ray reveals bilateral platelike atelectasis left greater than right. Small left apical pneumothorax may be present. He does have mediastinal and left chest tubes present. [place]-Nataly catheter present. Endotracheal and nasogastric tubes in place. He is currently sedated on propofol at 20 mcg/kg/min being transition to Precedex currently at 0.6 mcg/kg/h. He is on clevidipine at 2 mg an hour. Nitroglycerin drip at 5 mcg/min. Insulin drip at 1 unit/h. Amiodarone drip at 1 mg/min. Lactated Ringer's at 50 MLS per hour. Cardiac output is 3.5. Cardiac index 2.2. PA pressures 27/11. CVP of 3. Patient was reevaluated today on 09/18/2023, patient is POD #1 off pump coronary artery bypass grafting x 1, left internal thoracic artery (in-situ) to left anterior descending coronary artery, endoscopic left greater saphenous vein harvest, left atrial appendage ligation using #35mm AtriClip, graft flow measurements using the Medi-Stim flow meter system, trans-esophageal echo, patient was extubated yesterday at 1530. Patient is doing quite well, he is in sinus rhythm, hemodynamically stable, on IV amiodarone at 0.5 mg/min, he is on nitroglycerin drip as well as Cleviprex drip at 20 mg/h. Cardiac output is 6.9 cardiac index is 4.3, patient is receiving insulin at 1 unit/h. LR at 50 cc/h. Patient has mostly as expected postoperative pain, receiving Dilaudid as needed for pain control. Continues to have right IJ [place]-Nataly catheter, mediastinal/left pleural chest tubes, and again does not seem to be uncomfortableWBC count is 18.2 hemoglobin 14.3. Basic metabolic profile is nor mal with a relatively normal renal profile. Chest x-ray is mostly showing as expected postoperative changes no acute process otherwise as noted Patient was evaluated today on 09/19/2023, POD #2 off pump coronary artery bypass grafting x 1, left internal thoracic artery (in-situ) to left anterior de scending coronary artery, endoscopic left greater saphenous vein harvest, left atrial appendage ligation using #35mm AtriClip, graft flow measurements using the Medi-Stim flow meter system, trans-esophageal echo patient is sitting in a recliner, doing well, relatively asymptomatic, pain seems to be fairly under control with oxycodone and Dilaudid. Patient is heme medically stable, on 2 L nasal cannula, still doing poorly with incentive spirometry achieving no more than 750 cc patient continues to have multiple catheters and lines, this will likely be removed in the next 24 to 48 hours. Overall the patient is improving, and his clinical course is as expected. WBC count is 18.3 hemoglobin is 13.3 basic metabolic profile is normal and renal profile is normal. Chest x-ray today showed mostly postoperative cardiac surgery changes otherwise negative Reevaluated today on 09/20/2023, patient is now postoperative day #3. Continues to do quite well, relatively asymptomatic except for some postsurgical pain. Patient is on room air, he is not in any distress. WBC count is 10.7 hemoglobin 11.7 basic metabolic profile is normal and renal profile is normal. Chest x-ray showed bibasilar atelectasis. Patient was evaluated today on 09/21/2023, he is now postoperative day #4. Patient is sitting in the recliner, he is now in the stepdown unit, has some surgical pain which is expected, fairly well-controlled. Achieving about 1500 cc on his incentive spirometry, patient has been ambulating with assistance in the hallway. Patient is basically homeless, he may have to be discharged to a hotel at discharge and that will likely happen on Saturday. His chest x-ray is showing mostly bibasilar atelectasis, l labs were reviewed, Relatively normal CBC and normal basic metabolic profile, normal renal profile 3 today on 09/22/2023, patient is now postoperative day #5, he is doing great. On room air, does not seem to be in any distress, placement is in progress, I believe the patient is being considered for rehab placement at [facility]. Progress note dated September 23, 2023. The patient was seen today in room 354. He is on room air. No IV fluids. The patient is hoping to hear that he has been discharged from the hospital. No orders yet. Current labs include a white count 9.3, hemoglobin 11.7, hematocrit 35.8, and normal platelet count. Sodium, potassium, chloride, CO2, anion gap, BUN, and creatinine, are all normal. Glucose is 140. Calcium is 9. Magnesium is 2.0. Chest x-ray shows scattered parenchymal opacities, and small bilateral effusions. Progress note dated September 24, 2023. The patient is seen today room 354. This is a 58-year-old gentleman status post bypass surgery. The patient is doing relatively well. He had an off-pump procedure. Currently, he is on room air, and not receiving any IV fluids. Discharge planning is underway. Current labs include a blood glucose of 103. No chest x-ray today as yet. Progress note dated September 25, 2023. The patient is again seen today in room 354. Discharge planning is underway. He is currently on room air. No IV fluids. He has no complaints. He denies any chest pain or chest discomfort. There is no shortness of breath, difficulty breathing, coughing, wheezing, etc. According to the farm planner, the patient may end up either in a rehab facility, or a hotel. Current labs include a white count 10.3, hemoglobin 12.2, hematocrit 36.9, and a normal platelet count. Sodium 136, potassium 4.2, chlorides 105, CO2 24, BUN 17, and creatinine 0.8. Chest x-ray shows some atelectasis in the left lower lobe. Progress note dated September 26, 2023. 58-year-old male seen today in room 354. The patient continues on room air, and is not requiring any IV fluids. Discharge planning underway. Current labs include only a glucose of 100. No chest x-ray today. His chest x-ray has remained stable. Objective - Vital Signs Vital signs: Vital Signs Temp 98.0 F 09/26/23 11:43 Pulse 64 09/26/23 11:51 Resp 16 09/26/23 11:43 BP 126/79 09/26/23 11:43 Pulse Ox 100 09/26/23 11:43 FiO2 50 09/17/23 15:00 Intake & Output 09/25/23 09/26/23 09/26/23 18:59 06:59 18:59 Intake Total 240 1017 600 Output Total 850 Balance 240 167 600 Weight 57 kg Intake: Oral 240 1017 600 Output: Urine 850 Other: Voiding Method Toilet Toilet Toilet Urinal Urinal Urinal # Voids 2 ABP, PAP, CO, CI - Last Documented Arterial Blood Pressure 120/95 Pulmonary Artery Pressure 29/10 Cardiac Output 6.9 Cardiac Index 4.3 - Exam No acute distress, oriented 3. No respiratory distress. Room air saturation is 100 %. HEENT examination is grossly unremarkable. Mucous membranes are moist. No oral lesions. Neck supple. Full range of motion. No adenopathy thyromegaly or neck vein distention. Cardiovascular examination reveals regular rhythm rate. S1-S2 normal. No S3 or S4. No discernible murmur noted. Heart rate is 61 bpm. Lungs reveal clear breath sounds. Breath sounds are equal bilaterally. No adventitious lung sounds including wheezes rhonchi or crackles. Room air saturation is 100 %. Abdomen soft bowel sounds are heard. No masses or tenderness. Extremities are intact. No cyanosis clubbing or edema. Skin is without rash or lesion. Neurologic examination is brief but nonfocal. - Labs CBC & Chem 7: 09/25/23 09:00 06/26/24 09:00 Labs: Abnormal Lab Results - Last 24 Hours (Table) 09/25/23 09/25/23 Range/Units 16:11 19:57 POC Glucose (mg/dL) 135 H 139 H (70-110) mg/dL Assessment and Plan Assessment: Postoperative day #9, status post off-pump bypass surgery, for symptomatic coronary disease, and unstable angina. Prior history of myocardial infarction, with multiple stent placements. Generalized anxiety disorder. Dyslipidemia. Benign essential hypertension. Peripheral vascular occlusive disease. Medical noncompliance. Family history of premature coronary disease. Plan: Plan dated September 23, 2023. The patient appears to be doing relatively well. He is seen today in room 354. He is on room air. He is not receiving any IV fluids. The patient is apparently homeless, and discharge planning is underway. Labs, x-rays, medications are reviewed. His chest x-ray is reviewed. We will continue to fo llow make recommendations along the way. The patient continue with incentive spirometry. He also continues on GI and DVT prophylaxis. Plan dated September 24, 2023. The patient is currently on room air. Is not receiving any IV fluids. Today is postoperative day #7. Discharge planning underway. The patient is apparently homeless, and, social work is working on getting the patient properly discha rged. Labs, x-rays, and medications are reviewed. We will continue to follow make recommendations along the way. We encourage deep breathing, coughing, clearing of secretions, and hourly use of the incentive spirometer. Plan dated September 25, 2023. The patient is doing well. He remains off of supplemental oxygen, or IV fluids. The patient is currently being evaluated for discharge either to a rehab facility, or a hotel. Labs, x-rays, and all medications are reviewed. Will continue to asked the patient to do the incentive spirometer on a regular basis. Chest x-ray shows some atelectasis in the left lower lobe. In addition, we recommend deep breathing, coughing, and clearing of secretions. Plan dated September 26, 2023. The patient is seen today room 354. He continues on no supplemental oxygen. He is not receiving any IV fluids. The patient did not have any unusual labs today, or chest x-ray. Discharge planning is underway. They are still trying to find a place for this patient to be discharged to. This may be a rehab facility, or hotel. The patient denies any complaints at this time including chest pain or pressure, palpitations, shortness of breath, cough, wheezing, polly st tightness, or phlegm production. We will continue to follow make recommendations along the way. Time with Patient: Less than 30
--- NOTE | 2023-09-26 13:35 | P.DS ---
Providers Date of admission: 09/10/23 07:44 Expected date of discharge: 09/26/23 Attending physician: Lb Dee MD Consults: 09/08/23 21:10 Consult Physician Routine Consulting Provider: Justin Mondragon Consult Reason/Comments: chest pain Do you want consulting provider notified?: Yes 09/10/23 14:15 Consult Physician Routine Consulting Provider: Lb Dee Consult Reason/Comments: CABG eval, unstable angina, Do you want consulting provider notified?: Yes 09/12/23 10:58 Consult Physician Routine Consulting Provider: Jolly Laughlin Consult Reason/Comments: pulm clearence for open heart Do you want consulting provider notified?: Already Contacted 09/16/23 16:16 Consult to Anesthesia Routine Consulting Provider: Anesthesia,Services Consult Reason/Comments: Cardiac Surgery Pre-Op 09/17/23 11:26 Consult Physician Routine Consulting Provider: Fernandez Vail Consult Reason/Comments: medical management Do you want consulting provider notified?: Yes Primary care physician: [facility] Hospital Course: FINAL DIAGNOSIS: Coronary artery disease, unstable angina Multiple myocardial infarctions with multiple stents Hypertension Hyperlipidemia, cholesterol 203, LDL 123 Current tobacco dependence with cessation upon admission to the hospital, FEV1 91% of predicted Nightly marijuana use for anxiety Previous heavy EtOH use with admission earlier this year to [facility], does admit to still drinking about 2 beers a month Peripheral arterial disease with claudication, right TRELL 0.71, left TRELL 0.64 Left internal carotid stenosis 100% with possible TIA in the past Medical noncompliance Family history of premature coronary artery disease PRINCIPAL PROCEDURE: Off pump coronary artery bypass grafting x 1, left internal thoracic artery (in-situ) to left anterior descending coronary artery Endoscopic left greater saphenous vein harvest Left atrial appendage ligation using #35mm AtriClip Graft flow measurements using the Medi-Stim flow meter system Trans-esophageal echo HISTORY OF PRESENT ILLNESS: This is a 58-year-old gentleman who does not follow outpatient with a primary care or remarketing manager, however he states he has been trying to establish primary care services with the [facility]. Cardiology consultation notes that he was supposed to see Dr. Adhikari in the office but did not show for his appointment. The patient presented to [facility] emergency room with complaints of chest pain similar to previous heart attacks, the pain happened with activity not at rest, his only other symptom was mild nausea. Troponins were negative, EKG demonstrated sinus rhythm. Due to the patient's history he was recommended to undergo heart catheterization which was completed yesterday by Dr. Adhikari which demonstrated 80% mid LAD stenosis, 100% ostial RCA stenosis, 100% in-stent restenosis of prior RCA stents, and left to right collaterals filling the PDA and PL branches. Due to this finding consultation was placed to Dr. Dee from cardiothoracic surgery for surgical revascularization recommendations. He was recommended to undergo urgent CABG. The usual perioperative course was discussed in detail with the patient, all risks and benefits were explained, all questions were answered, and consent was obtained to proceed with surgery. The patient was kept inpatient due to the nature of his disease process. HOSPITAL COURSE: The patient was brought to the preoperative area 09/17/23, prepared in the usual fashion, and subsequently taken to the operating room where Dr. Dee performed single-vessel off-pump CABG. Upon completion of surgery the patient was transferred to the cardiovascular intensive care unit where he was recovered and monitored hemodynamically. He was extubated, all lines, tubes, and drips were discontinued when appropriate, and he was transferred to 3 S. cardiac stepdown unit for further monitoring and rehabilitation. His oxygen was titrated down, he continued to work with physical and occupational therapy, he was tolerating oral diet, his pain was controlled, and he was ready to be discharged to rehab on postoperative day #9 once placement and insurance authorization was obtained. He received written and verbal instruction regarding his medications, activity restrictions, signs and symptoms requiring physician notification, and follow-up appointments. Patient Condition at Discharge: Stable Plan - Discharge Summary New Discharge Prescriptions: New Aspirin 325 mg PO DAILY tab Amiodarone [Cordarone] 400 mg PO DAILY 14 Days tab Atorvastatin [Lipitor] 40 mg PO DAILY tab HYDROcodone/APAP 10-325MG [[place] 10-325] 1 each PO Q6HR PRN #28 tab PRN Reason: Pain Acetaminophen Tab [Tylenol] 1,000 mg PO Q6HR PRN tab PRN Reason: Fever And/ Or Mild Pain (1-3) Benzocaine/Menthol Lozeng [Cepacol lozenge] 1 each MUCOUS MEM Q2H PRN lozenge PRN Reason: Sore Throat Losartan [Cozaar] 50 mg PO DAILY@1200 tab Ipratropium-Albuterol Nebulize [Duoneb 0.5 mg-3 mg/3 ml Soln] 3 ml INHALATION RT-QID each Ipratropium-Albuterol Nebulize [Duoneb 0.5 mg-3 mg/3 ml Soln] 3 ml INHALATION RT-Q2H PRN each PRN Reason: Shortness Of Breath Or Wheezing Ibuprofen [Motrin] 400 mg PO Q6HR PRN tab PRN Reason: Pain Clopidogrel [Plavix] 75 mg PO DAILY tab Pantoprazole [Protonix] 40 mg PO AC-BRKFST tab Sennosides-Docusate Sodium [Senokot-S] 2 each PO HS PRN tab PRN Reason: Constipation Continue Multivitamins, Thera [Multivitamin (formulary)] 1 tab PO DAILY Metoprolol Tartrate [Lopressor] 50 mg PO BID Discharge Medication List Metoprolol Tartrate [Lopressor] 50 mg PO BID 05/27/23 [History] Multivitamins, Thera [Multivitamin (formulary)] 1 tab PO DAILY 05/27/23 [History] Acetaminophen Tab [Tylenol] 1,000 mg PO Q6HR PRN tab 09/26/23 [Rx] Amiodarone [Cordarone] 400 mg PO DAILY 14 Days tab 09/26/23 [Rx] Aspirin 325 mg PO DAILY tab 09/26/23 [Rx] Atorvastatin [Lipitor] 40 mg PO DAILY tab 09/26/23 [Rx] Benzocaine/Menthol Lozeng [Cepacol lozenge] 1 each MUCOUS MEM Q2H PRN lozenge 09/26/23 [Rx] Clopidogrel [Plavix] 75 mg PO DAILY tab 09/26/23 [Rx] HYDROcodone/APAP 10-325MG [[place] 10-325] 1 each PO Q6HR PRN #28 tab 09/26/23 [Rx] Ibuprofen [Motrin] 400 mg PO Q6HR PRN tab 09/26/23 [Rx] Ipratropium-Albuterol Nebulize [Duoneb 0.5 mg-3 mg/3 ml Soln] 3 ml INHALATION RT-Q2H PRN each 09/26/23 [Rx] Ipratropium-Albuterol Nebulize [Duoneb 0.5 mg-3 mg/3 ml Soln] 3 ml INHALATION RT-QID each 09/26/23 [Rx] Losartan [Cozaar] 50 mg PO DAILY@1200 tab 09/26/23 [Rx] Pantoprazole [Protonix] 40 mg PO AC-BRKFST tab 09/26/23 [Rx] Sennosides-Docusate Sodium [Senokot-S] 2 each PO HS PRN tab 09/26/23 [Rx] Follow up Appointment(s)/Referral(s): [facility] [NON-STAFF] - 4 Weeks (You will receive a phone call in approximately 4-6 weeks for evaluation for cardiac rehab) [facility] [REFERRING] - As Needed (Reach out to [facility] to see if you qualify for housing programs. ) Lb Dee MD [STAFF PHYSICIAN] - 10/18/23 2:00 pm [facility], [NON-STAFF] - Alonso Adhikari MD [Medical Doctor] - 1 Week (Please call for follow up appointment upon discharge from rehab) Jolly Laughlin MD [STAFF PHYSICIAN] - 1 Week (Please call for follow up appointment upon discharge from rehab) [facility] [Primary Care Provider] - 1-2 days (Please call for follow up appointment upon discharge from rehab) Ambulatory/Diagnostic Orders: Complete Blood Count w/diff [LAB.AMB] Time Frame: 3 Days, Location: None Selected Comprehensive Metabolic Panel [LAB.AMB] Time Frame: 3 Days, Location: None Selected Patient Instructions/Handouts: Chest Pain (ED) Activity/Diet/Wound Care/Special Instructions: DISCHARGE INSTRUCTIONS: 1. No driving for 4 weeks, or until physician gives their ok. 2. The patient should sleep in their own bed, no medical bed needed. 3. Stairs are not an issue. If the bedroom is upstairs, it is advised that the patient go up at night and down in the morning for the first week. Go slowly, using handrail and take 1 step at a time. 4. RYLEE hose are to be worn for 30 days post surgery or until physician discontinues. 5. Heart hugger is to be worn 100% of the time until physician discontinues.(except when showering) 6. No lifting, pushing, or pulling more than 10 pounds for 12 weeks. The physician will advise of any restriction changes. 7. The patient is expected to continue the prescribed walking program. 8. Continue pain control per as needed orders. 9. Continue with incentive spirometry and splinting/heart hugger until otherwise directed by the physician. 10. Must shower daily using liquid antibacterial soap 11. Routine sternal incision care. No powders, lotions, ointments on incisions. No dressings are necessary on incisions unless they are draining. Dermabond tape is to remain on sternal incision until surgeon follow-up. 12. Please call surgeon/CARDIAC CATH LAB MANAGER for temp greater than 101 F or purulent drainage from incisions. 13. You should weigh yourself daily, record and bring log with you to follow up appointments. 14. All prescriptions given by surgeon for 30 days. Refills need to be filled through remarketing manager/primary care physician. 15. A Red armband has been placed on the patient. It should be worn for 30 days post discharge from surgery and will be removed by the cardiac surgeons. If an ER visit is necessary, please make sure the number on the Red armband is called before going to ER. 16. You have been referred to and are expected to begin Cardiac Rehab in approximately 4-6 weeks. 17. Quitting smoking is the most important step you can take to improve your health. For additional information and assistance to quit smoking, please call the [place] tobacco quit line (3-754-BYZI-NOW/ ) or online: [email or web address] SERVICES TO PROVIDE: RN SKILLED HOME CARE SERVICES FOR POST-OP SURGICAL PATIENTS WITH THE FOLLOWING: Coronary Artery Bypass Surgery (CABG), Mitral Valve Replacement/Repair ( MVR), Aortic Valve Replacement/Repair (AVR) RN TO CONTINUE EDUCATION FROM ``ROAD TO A HEALTH HEART PATIENT EDUCATION MANUAL (GIVEN TO PATIENT IN THE HOSPITAL) MEDICATION RECONCILIATION WITH EDUCATION NEEDED ON FIRST HOME VISIT EMPHASIZE IMPORTANCE OF WEARING BREAST SUPPORT/HEART HUGGER ENCOURAGE USE OF INCENTIVE SPIROMETER 10 X EVERY HOUR WHILE AWAKE ENCOURAGE UTILIZATION OF LOWER EXTREMITY COMPRESSION STOCKINGS/RYLEE HOSE and ELEVATE LEGS ABOVE LEVEL OF HEART WHILE AT REST. ENCOURAGE AMBULATION 3-5x/day INCREASING TOLERATES, WHILE AVOIDING EXTREMES IN TEMPERATURE FREQUENCY: RN TO OPEN THE PATIENT WITHIN 24 HOURS OF DISCHARGE FROM THE HOSPITAL WITH TELEHEALTH INSTALLED AT [facility], RN TO VISIT 2-3 X A WEEK FOR 4 WEEKS ESTABLISHED BY PATIENT NEEDS. LABORATORY: CBC, CMP TO BE DRAWN ON THE THIRD DAY HOME, (RAN STAT) FAX RESULTS TO [phone]. TELEHEALTH PARAMETERS: WEIGHT: NOTIFY MD OF WEIGHT GAIN OF 2 LBS IN 24 HOURS OR 5 LBS IN ONE WEEK HR: NOTIFY MD OF HR <55 BPM OR HR>100 BPM BP: NOTIFY MD IF BP <90/55 OR BP>140/100 O2 SAT: NOTIFY MD IF PO2<93% ON ROOM AIR SEND TELEHEALTH REPORT TO PATTERNMAKER SAMPLE AND CARDIOVASCULAR SURGEON THE FIRST WEEK OF CARE AND THEN BI-WEEKLY. PLEASE ADDITIONALLY COMMUNICATE ANY ABNORMALS AND NEW FINDINGS TO THE SURGEONS OFFICE. Discharge/Stand Alone Forms: Area PCPs Discharge Disposition: DC/TRNS INTERMEDIATE CARE FAC
[2023-09-26 14:27] VITALS: PULSE 61
== END 2023-09-26 16:12 | DRG 165 ==
LOC: EC 18:24 → 6NMEDSUR 21:11 → OBSVTOIN 09-10 07:44 → 2SICU 09-17 06:14 → 3SCARD 09-19 21:10
PROVIDERS: ADMIT Thoracic Surgery (Cardiothoracic Vascular Surgery); ATTEND Thoracic Surgery (Cardiothoracic Vascular Surgery)
PROC: B2111ZZ Fluoroscopy of Multiple Coronary Arteries using Low Osmolar Contrast (ICD-10-PCS; 2023-09-10 08:55)
PROC: 3E043RZ Introduction of Antiarrhythmic into Central Vein, Percutaneous Approach (ICD-10-PCS; 2023-09-17)
PROC: 4A023N7 Measurement of Cardiac Sampling and Pressure, Left Heart, Percutaneous Approach (ICD-10-PCS; principal; 2023-09-17 08:00)
PROC: 06BQ4ZZ Excision of Left Saphenous Vein, Percutaneous Endoscopic Approach (ICD-10-PCS; principal; 2023-09-17 08:00)
PROC: 4A0305C Measurement of Arterial Flow, Coronary, Open Approach (ICD-10-PCS; principal; 2023-09-17 08:00)
PROC: 02L70CK Occlusion of Left Atrial Appendage with Extraluminal Device, Open Approach (ICD-10-PCS; principal; 2023-09-17 08:00)
PROC: 02100Z9 Bypass Coronary Artery, One Artery from Left Internal Mammary, Open Approach (ICD-10-PCS; principal; 2023-09-17 08:00)
PROC: B24BZZ4 Ultrasonography of Heart with Aorta, Transesophageal (ICD-10-PCS; 2023-09-17 08:00)
DX: T82.855A Stenosis of coronary artery stent, initial encounter (principal); J44.9 Chronic obstructive pulmonary disease, unspecified; I25.82 Chronic total occlusion of coronary artery; D62 Acute posthemorrhagic anemia; I25.110 Atherosclerotic heart disease of native coronary artery with unstable angina pectoris; I70.213 Atherosclerosis of native arteries of extremities with intermittent claudication, bilateral legs; I10 Essential (primary) hypertension; F10.11 Alcohol abuse, in remission; F32.A Depression, unspecified; I65.22 Occlusion and stenosis of left carotid artery; F41.1 Generalized anxiety disorder; E78.1 Pure hyperglyceridemia; I25.2 Old myocardial infarction; F17.210 Nicotine dependence, cigarettes, uncomplicated; J98.11 Atelectasis; K59.00 Constipation, unspecified; H40.9 Unspecified glaucoma; R73.9 Hyperglycemia, unspecified; R91.1 Solitary pulmonary nodule; Z91.199 Patient's noncompliance with other medical treatment and regimen due to unspecified reason; Z91.148 Patient's other noncompliance with medication regimen for other reason; Z79.899 Other long term (current) drug therapy; Z95.5 Presence of coronary angioplasty implant and graft; Z86.73 Personal history of transient ischemic attack (TIA), and cerebral infarction without residual deficits; Z59.01 Sheltered homelessness; Z59.12 Inadequate housing utilities; Z59.41 Food insecurity; Z63.8 Other specified problems related to primary support group; Z71.3 Dietary counseling and surveillance; Y84.0 Cardiac catheterization as the cause of abnormal reaction of the patient, or of later complication, without mention of misadventure at the time of the procedure; Y83.1 Surgical operation with implant of artificial internal device as the cause of abnormal reaction of the patient, or of later complication, without mention of misadventure at the time of the procedure
CPT/HCPCS: 36415; 71045; 71046; 71250; 76937; 78452; 80048; 80053; 80061; 80074; 82330; 82805; 83036; 83735; 84443; 84484; 85025; 85027; 85610; 85730; 86850; 86900; 86901; 86920; 87070; 93005; 93017; 93306; 93458; 93880; 93922; 93970; 94002; 94150; 94640; 94760; 96365; 96366; 96375; 96376; 99291

== ENCOUNTER 2023-10-21 22:31 | Observation (INO) | payer MEDICARE ==
--- NOTE | 2023-10-21 22:51 | ED ---
Chest Pain HPI - General Chief Complaint: Chest Pain Stated Complaint: Possible infection Time Seen by Provider: 10/21/23 22:37 Source: patient, RN notes reviewed, old records reviewed Mode of arrival: EMS Limitations: no limitations - History of Present Illness Initial Comments: This is a 58-year-old male to the ER for evaluation patient presents today for evaluation regards to chest pain today. Patient is concerned he may have infection from recent cardiothoracic surgery. Patient is having some drainage from the uppermost aspect of his incision. Not malodorous, patient also having some chest pain today patient was unable to make his follow-up appointment for postcardiac surgery MD Complaint: chest pain, other (Drainage from the most cephalad aspect of his incision) Onset: during rest Pain Location: left chest Pain Radiation: none Severity: mild Severity scale (1-10): 3 Quality: tightness Consistency: intermittent Improves With: nothing Worsens With: nothing Treatments Prior to Arrival: none - Related Data Home Medications Medication Instructions Recorded Confirmed Metoprolol Tartrate [Lopressor] 50 mg PO BID 05/27/23 10/22/23 HYDROcodone/APAP 10-325MG [[place] 1 tab PO Q6HR PRN 10/22/23 10/22/23 10-325] Ipratropium-Albuterol Nebulize 3 ml INHALATION RT-QID PRN 10/22/23 10/22/23 [Duoneb 0.5 mg-3 mg/3 ml Soln] Previous Rx's Medication Instructions Recorded Amiodarone [Cordarone] 400 mg PO DAILY 14 Days tab 09/26/23 Aspirin 325 mg PO DAILY tab 09/26/23 Atorvastatin [Lipitor] 40 mg PO DAILY tab 09/26/23 Clopidogrel [Plavix] 75 mg PO DAILY tab 09/26/23 Losartan [Cozaar] 50 mg PO DAILY@1200 tab 09/26/23 Pantoprazole [Protonix] 40 mg PO AC-BRKFST tab 09/26/23 Allergies Allergy/AdvReac Type Severity Reaction Status Date / Time No Known Allergies Allergy Verified 10/22/23 07:46 Review of Systems ROS Statement: Those systems with pertinent positive or pertinent negative responses have been documented in the HPI. ROS Other: All systems not noted in ROS Statement are negative. EKG Findings - EKG Comments: EKG Findings:: EKG is sinus 63 KS 152 QRS 126 QTc 432 - EKG Results: EKG: interpreted by RANDAL Past Medical History Past Medical History: Chest Pain / Angina, Hypertension, Myocardial Infarction (IA) Additional Past Medical History / Comment(s): PT states he ahs 7 cardiac stents. Pt states he lost his card. Last Myocardial Infarction Date:: 2016 History of Any Multi-Drug Resistant Organisms: None Reported Past Surgical History: Heart Catheterization With Stent Past Anesthesia/Blood Transfusion Reactions: No Reported Reaction Date of Last Stent Placement:: 2016 Past Psychological History: Anxiety, Depression Smoking Status: Former smoker Past Alcohol Use History: Abuse Past Drug Use History: Marijuana - Past Family History Father Family Medical History: Coronary Artery Disease (CAD), Myocardial Infarction (IA) Additional Family Medical History / Comment(s): from myocardial infarction in his 40s Mother Family Medical History: COPD Additional Family Medical History / Comment(s): from COPD in her 70s Brother(s) Family Medical History: Coronary Artery Disease (CAD) Additional Family Medical History / Comment(s): Had CABG at a young age General Exam General appearance: alert, in no apparent distress Head exam: Present: atraumatic, normocephalic, normal inspection Eye exam: Present: normal appearance, PERRL, EOMI. Absent: scleral icterus, conjunctival injection, periorbital swelling ENT exam: Present: normal exam, mucous membranes moist Neck exam: Present: normal inspection. Absent: tenderness, meningismus, lymphadenopathy Respiratory exam: Present: normal lung sounds bilaterally. Absent: respiratory distress, wheezes, rales, rhonchi, stridor Cardiovascular Exam: Present: regular rate, normal rhythm, normal heart sounds. Absent: systolic murmur, diastolic murmur, rubs, gallop, clicks GI/Abdominal exam: Present: soft, normal bowel sounds. Absent: distended, tenderness, guarding, rebound, rigid Extremities exam: Present: normal inspection, full ROM, normal capillary refill. Absent: tenderness, pedal edema, joint swelling, calf tenderness Back exam: Present: normal inspection Neurological exam: Present: alert, oriented X3, CN II-XII intact Psychiatric exam: Present: normal affect, normal mood Skin exam: Present: warm, dry, intact, normal color. Absent: rash Course Vital Signs 10/21/23 10/22/23 22:36 00:05 Temperature 97.5 F L Pulse Rate 67 65 Respiratory 18 18 Rate Blood Pressure 193/93 117/80 O2 Sat by Pulse 99 98 Oximetry - Reevaluation(s) Reevaluation #1: 10/21/23 23:41 Records reviewed Reevaluation #2: 10/21/23 23:41 Patient still with chest pain here in the ER Reevaluation #3: 10/21/23 23:41 Patient informed of results and questions answered Reevaluation #4: Was pt. sent in by a medical professional or institution (LARISA Ho, TECHNICIAN HELPER INSTRUMENT, urgent care, hospital, or [facility]...) When possible be specific @ -no Did you speak to anyone other than the patient for history (EMS, parent, family, police, friend...)? What history was obtained from this source @ -no Did you review nursing and triage notes (agree or disagree)? Why? @ -agree Are old charts reviewed (outside hosp., previous admission, EMS record, old EKG, old radiological studies, urgent care reports/EKG's, [facility] records)? Report findings @ -yes Differential Diagnosis (chest pain, altered mental status, abdominal pain women, abdominal pain men, vaginal bleeding, weakness, fever, dyspnea, syncope, headache, dizziness, GI bleed, back pain, seizure, CVA, palpatations, mental health, musculoskeletal)? @ -prior EKG interpreted by me (3pts min.). @ -yes X-rays interpreted by me (1pt min.). @ -yes negative for acute disease CT interpreted by me (1pt min.). @ -no U/S interpreted by me (1pt. min.). @ -no What testing was considered but not performed or refused? (CT, X-rays, U/S, labs)? Why? @ -none What meds were considered but not given or refused? Why? @ -none Did you discuss the management of the patient with other professionals (professionals i.e. LARISA Ho, TECHNICIAN HELPER INSTRUMENT, lab, RT, psych nurse, social service worker, technical specialist cytogenetics, teacher, information technology officer, case resource manager)? Give summary @ -no Was smoking cessation discussed for >3mins.? @ -no Was critical care preformed (if so, how long)? @ -no Were there social determinants of health that impacted care today? How? (Homelessness, low income, unemployed, alcoholism, drug addiction, transportation, low edu. Level, literacy, decrease access to med. care, correction, rehab)? @ -none Was there de-escalation of care discussed even if they declined (Discuss DNR or withdrawal of care, Hospice)? DNR status @ -no What co-morbidities impacted this encounter? (DM, HTN, Smoking, COPD, CAD, Cancer, CVA, ARF, Chemo, Hep., AIDS, mental health diagnosis, sleep apnea, morbid obesity)? @ -none Was patient admitted / discharged? Hospital course, mention meds given and route, prescriptions, significant lab abnormalities, going to OR and other pertinent info. @ - 58 Male with possibly and likely incision infection, patient replaced on antibiotics and admitted for chest pain post cardiothoracic surgery Admitted Undiagnosed new problem with uncertain prognosis? @ -no Drug Therapy requiring intensive monitoring for toxicity (Heparin, Nitro, Insulin, Cardizem)? @ -no Were any procedures done? @ -no Diagnosis/symptom? @ -chest wall abscess, infection Acute, or Chronic, or Acute on Chronic? @ -Acute Uncomplicated (without systemic symptoms) or Complicated (systemic symptoms)? @ -Complicated Side effects of treatment? @ -no Exacerbation, Progression, or Severe Exacerbation? @ -exacerbation Poses a threat to life or bodily function? How? (Chest pain, [place], IA, pneumonia, PE, COPD, DKA, ARF, appy, cholecystitis, CVA, Diverticulitis, Homicidal, Suicidal, threat to staff... and all critical care pts) @ -yes with infection Reevaluation #5: Differential Chest Pain: Stable Angina, Unstable Angina, STEMI, NSTEMI Aortic Dissection, Pneumothorax, Musculoskeletal, Esophageal Spasm GERD, Cholecystitis, Pancreatitis, Zoster, this is not meant to be an all-inclusive list. - Consultations Consultation #1: Joe who agrees to admit this patient Chest Pain MDM - MDM 58 Male with possibly and likely incision infection, patient replaced on antibiotics and admitted for chest pain post cardiothoracic surgery Critical Care Time Critical Care Time: Yes Total Critical Care Time: 31 Disposition Clinical Impression: Chest pain, Incisional infection Disposition: ADMITTED IP TO THIS HOSP Condition: Good Is patient prescribed a controlled substance at d/c from ED?: No Time of Disposition: 23:40
[2023-10-21 23:01] LABS: Basophils # (A) 0.1 k/uL (0-0.2); Basophils % (A) 0 %; Eosinophils # (A) 0.2 k/uL (0-0.7); Eosinophils % (A) 2 %; HCT 40.9 % (39.0-53.0); HGB 13.3 gm/dL (13.0-17.5); Hypochromasia Slight; Lymphocytes # (A) 1.1 k/uL (1.0-4.8); Lymphocytes % (A) 8 %; MCH 30.8 pg (25.0-35.0); MCHC 32.6 g/dL (31.0-37.0); MCV 94.2 fL (80.0-100.0); Mean Platelet Volume 7.3; Monocytes # (A) 0.7 k/uL (0-1.0); Monocytes % (A) 5 %; Neutrophils # (A) 10.8 k/uL (1.3-7.7); Neutrophils % (A) 83 %; Platelet Count 411 k/uL (150-450); RBC 4.34 m/uL (4.30-5.90); RDW 13.8 % (11.5-15.5)
--- NOTE | 2023-10-21 23:10 | XR ---
EXAMINATION TYPE: XR chest 1V portable DATE OF EXAM: 10/21/2023 COMPARISON: Chest x-ray September 25, 2023 HISTORY: Chest pain TECHNIQUE: Single frontal view of the chest is obtained. FINDINGS: Overlying sternal wires along with left atrial appendage clip are redemonstrated. There is mild linear scarring left lung base redemonstrated. Right lung is clear. The cardiac silhouette siz e is stable and within normal limits. The osseous structures are intact. IMPRESSION: No acute pulmonary process.
[2023-10-21 23:15] LABS: ALT 19 U/L (4-49); AST 21 U/L (17-59); African American GFR (CKD) >90 (>60 ml/min/1.73 sqM); Albumin 4.5 g/dL (3.5-5.0); Alkaline Phosphatase 102 U/L (38-126); Anion Gap 13 mmol/L; Blood Urea Nitrogen 18 mg/dL (9-20); Calcium 9.4 mg/dL (8.4-10.2); Carbon Dioxide 18 mmol/L (22-30); Chloride 109 mmol/L (98-107); Glucose 113 mg/dL (74-99); Lipase 27 U/L (23-300); Magnesium 2.1 mg/dL (1.6-2.3); Non-African American GFR(CKD) >90 (>60 ml/min/1.73 sqM); Potassium 4.1 mmol/L (3.5-5.1); Sodium 140 mmol/L (137-145); Total Bilirubin 0.4 mg/dL (0.2-1.3)
[2023-10-21] MEDS ORDERED: NITROGLYCERIN SL TABS 0.4 MG TAB SUBLINGUAL PRN (23:43)
[2023-10-21 23:48] LABS: Partial Thromboplastin Time 27.4 sec (22.0-30.0); Prothrombin Time 11.3 sec (10.0-12.5)
[2023-10-22] MEDS: ASPIRIN 81 MG PO STA (02:16)
[2023-10-22] MEDS: MORPHINE SULFATE 4 MG/ML SYRINGE IV PRN (02:25)
[2023-10-22] MEDS ORDERED: SENNOSIDES-DOCUSATE SODIUM 1 EACH TAB PO PRN (06:34)
[2023-10-22] MEDS ORDERED: IPRATROPIUM-ALBUTEROL 3 ML NEB INHALATION PRN (06:34)
[2023-10-22] MEDS ORDERED: BENZOCAINE/MENTHOL LOZENG 1 EACH LOZENGE MUCOUS MEM PRN (06:34)
[2023-10-22] MEDS ORDERED: IBUPROFEN 400 MG TAB PO PRN (06:34)
[2023-10-22] MEDS ORDERED: ACETAMINOPHEN TAB 500 MG TAB PO PRN (06:34)
[2023-10-22] MEDS: IPRATROPIUM-ALBUTEROL 3 ML NEB INHALATION SCH (08:00)
[2023-10-22] MEDS: MULTIVITAMINS, THERA 1 EACH TAB PO SCH (08:12)
[2023-10-22] MEDS: PANTOPRAZOLE 40 MG TABLET PO SCH (08:12)
[2023-10-22] MEDS: ATORVASTATIN 40 MG TAB PO SCH (08:12)
[2023-10-22] MEDS: ASPIRIN 325 MG TAB PO SCH (08:12)
[2023-10-22] MEDS: CLOPIDOGREL 75 MG TAB PO SCH (08:13)
[2023-10-22] MEDS: HYDROcodone/APAP 10-325MG 1 EACH TAB PO PRN (08:13)
[2023-10-22] MEDS: METOPROLOL TARTRATE 50 MG TAB PO SCH (08:13)
[2023-10-22 08:47] LABS: Chol/HDL Ratio 5.05 Ratio; LDL Cholesterol,Calculated 136.4 mg/dL (0.0-131.0); VLDL Calculation 19.96 mg/dL (5.00-40.00)
--- NOTE | 2023-10-22 08:50 | P.CRDCN ---
History of Present Illness Consult date: 10/22/23 Consult reason: chest pain History of present illness: This is a 58-year-old male with self-reported past medical history of 6 heart attacks, 7 cardiac stents, 100% left carotid stenosis, PAD, glaucoma. Patient was recently hospitalized found to have coronary artery disease status post coronary artery bypass grafting x 1, left internal thoracic artery (in-situ) to left anterior descending coronary artery on 09/[address] Dee. Patient states that he knew the wound was infected and he had pus leaking out and came back to the hospital for further evaluation. Patient was to have a follow-up visit with Dr. Adhikari in 1 week and unable to determine why this did not happen. He has had occasions in the past when he has not shown up for appointments. Blood pressure 132/82, heart rate is in the 60s, pulse ox 98% on room air, afebrile. EKG: Sinus rhythm with no acute ST-T wave changes Chest x-ray: No acute process Laboratory studies: WBC 13, hemoglobin 13.3. D-dimer 1.36. Sodium 140, potassium 4.1, creatinine 0.82. Troponin negative x 3. Home cardiac medications: Amiodarone 400 mg daily, aspirin 325 mg daily, atorvastatin 40 mg daily, Plavix 75 mg daily, losartan 50 mg at noon, Lopressor 50 mg twice daily. Echocardiogram performed on 09/10/2023 revealed preserved LV size and function with inferior basal and inferior septal akinesis. Thickened aortic valve leaflets without stenosis. Cardiac catheterization performed on 09/10/2023 revealed 80% mid LAD stenosis, 100% ostial RCA stenosis, prior stenting of the RCA with 100% in-stent stenosis, left to right collaterals filling PL branch, normal LVEDP. Review Of Systems: At the time of my exam: CONSTITUTIONAL: Denies fever or chills. HEENT: Denies blurred vision, vision changes, or eye pain. Denies hemoptysis CARDIOVASCULAR: Denies chest pain. Denies orthopnea. Denies PND. Denies palpitations RESPIRATORY: Denies shortness of breath. GASTROINTESTINAL: Denies abdominal pain. Denies nausea or vomiting. HEMATOLOGIC: Denies bleeding disorders. GENITOURINARY: Denies any blood in urine. SKIN: Denies puritis. Denies rash. Physical examination: Gen: This is a 58-year-old male in no acute distress VS: reviewed HEENT: Head is atraumatic, normocephalic. Pupils equal, round. Sclerae is anicteric. NECK: Supple. No JVD. LUNGS: Clear to auscultation. No wheezes or rhonchi. No intercostal retractions. HEART: Regular rate and rhythm. No murmur. ABDOMEN: Soft No tenderness. EXTREMITIES: No pedal edema. No calf tenderness. NEUROLOGICAL: Patient is awake, alert and oriented x3. Assessment: Atypical chest pain, most likely coming from sternal wound pain Possible sternal wound infection Recent CABG x 1 09/16 History of coronary artery disease with previous stenting History of carotid artery disease PAD in the bilateral lower extremities Hypertension Tobacco use and dependence History of medical noncompliance Plan: Resume patient's home cardiac medication Consult infectious disease Smoking cessation, patient will be given [employer] quit line information Thank you kindly for this consultation. Nurse practitioner note has been reviewed, I agree with documented findings and plan of care. Patient was seen and examined. Past Medical History Past Medical History: Chest Pain / Angina, Hypertension, Myocardial Infarction ([place]) Additional Past Medical History / Comment(s): PT states he ahs 7 cardiac stents. Pt states he lost his card. Last Myocardial Infarction Date:: 2016 History of Any Multi-Drug Resistant Organisms: None Reported Past Surgical History: Heart Catheterization With Stent Past Anesthesia/Blood Transfusion Reactions: No Reported Reaction Date of Last Stent Placement:: 2016 Past Psychological History: Anxiety, Depression Smoking Status: Current every day smoker Past Alcohol Use History: Abuse Past Drug Use History: Marijuana - Past Family History Father Family Medical History: Coronary Artery Disease (CAD), Myocardial Infarction ([place]) Additional Family Medical History / Comment(s): from myocardial infarction in his 40s Mother Family Medical History: COPD Additional Family Medical History / Comment(s): from COPD in her 70s Brother(s) Family Medical History: Coronary Artery Disease (CAD) Additional Family Medical History / Comment(s): Had CABG at a young age Medications and Allergies Home Medications Medication Instructions Recorded Confirmed Type Metoprolol Tartrate [Lopressor] 50 mg PO BID 05/27/23 10/22/23 History Amiodarone [Cordarone] 400 mg PO DAILY 14 Days tab 09/26/23 10/22/23 Rx Aspirin 325 mg PO DAILY tab 09/26/23 10/22/23 Rx Atorvastatin [Lipitor] 40 mg PO DAILY tab 09/26/23 10/22/23 Rx Clopidogrel [Plavix] 75 mg PO DAILY tab 09/26/23 10/22/23 Rx Losartan [Cozaar] 50 mg PO DAILY@1200 tab 09/26/23 10/22/23 Rx Pantoprazole [Protonix] 40 mg PO AC-BRKFST tab 09/26/23 10/22/23 Rx HYDROcodone/APAP 10-325MG [Ridott 1 tab PO Q6HR PRN 10/22/23 10/22/23 History 10-325] Ipratropium-Albuterol Nebulize 3 ml INHALATION RT-QID PRN 10/22/23 10/22/23 History [Duoneb 0.5 mg-3 mg/3 ml Soln] Allergies Allergy/AdvReac Type Severity Reaction Status Date / Time No Known Allergies Allergy Verified 10/22/23 07:46 Physical Exam Vitals: Vital Signs Temp Pulse Pulse Resp BP BP Pulse Ox 10/22/23 00:48 98.0 F 66 18 147/77 98 10/22/23 00:05 65 18 117/80 98 10/21/23 22:36 97.5 F L 67 18 193/93 99 Intake and Output 10/21/23 10/22/23 10/22/23 22:59 06:59 14:59 Intake Total 240 Balance 240 Intake: Oral 240 Other: # Voids 1 Weight 56.699 kg 56.699 kg Results 10/21/23 22:52 10/21/23 22:52 Cardiac Enzymes 10/21/23 10/21/23 10/22/23 Range/Units 22:52 22:52 00:06 AST 21 (17-59) U/L Troponin I <0.012 <0.012 (0.000-0.034) ng/mL 10/22/23 Range/Units 03:29 AST (17-59) U/L Troponin I <0.012 (0.000-0.034) ng/mL Coagulation 10/21/23 Range/Units 22:52 PT 11.3 (10.0-12.5) sec APTT 27.4 (22.0-30.0) sec CBC 10/21/23 Range/Units 22:52 WBC 13.0 H (3.8-10.6) k/uL RBC 4.34 (4.30-5.90) m/uL Hgb 13.3 (13.0-17.5) gm/dL Hct 40.9 (39.0-53.0) % Plt Count 411 (150-450) k/uL Comprehensive Metabolic Panel 10/21/23 Range/Units 22:52 Sodium 140 (137-145) mmol/L Potassium 4.1 (3.5-5.1) mmol/L Chloride 109 H (98-107) mmol/L Carbon Dioxide 18 L (22-30) mmol/L BUN 18 (9-20) mg/dL Creatinine 0.82 (0.66-1.25) mg/dL Glucose 113 H (74-99) mg/dL Calcium 9.4 (8.4-10.2) mg/dL AST 21 (17-59) U/L ALT 19 (4-49) U/L Alkaline Phosphatase 102 (38-126) U/L Total Protein 7.0 (6.3-8.2) g/dL Albumin 4.5 (3.5-5.0) g/dL Current Medications Generic Name Dose Route Start Last Admin Trade Name Freq PRN Reason Stop Dose Admin Acetaminophen 1,000 mg 10/22/23 06:34 Acetaminophen Tab 500 Mg Tab PO Q6HR PRN Fever And/ Or Mild Pain (1-3) Hydrocodone Bitart/Acetaminophen 1 each 10/22/23 06:34 Hydrocodone/Apap 10-325mg 1 Each Tab PO Q6HR PRN Pain Albuterol/Ipratropium 3 ml 10/22/23 06:34 Ipratropium-Albuterol 3 Ml Neb INHALATION RT-Q2H PRN Shortness Of Breath Or Wheezing Albuterol/Ipratropium 3 ml 10/22/23 08:00 Ipratropium-Albuterol 3 Ml Neb INHALATION RT-QID [facility] Aspirin 325 mg 10/22/23 09:00 Aspirin 325 Mg Tab PO DAILY [facility] Atorvastatin Calcium 40 mg 10/22/23 09:00 Atorvastatin 40 Mg Tab PO DAILY [facility] Benzocaine/Menthol 1 each 10/22/23 06:34 Benzocaine/Menthol Lozeng 1 Each Lozenge MUCOUS MEM Q2H PRN Sore Throat Clopidogrel Bisulfate 75 mg 10/22/23 09:00 Clopidogrel 75 Mg Tab PO DAILY [facility] Ibuprofen 400 mg 10/22/23 06:34 Ibuprofen 400 Mg Tab PO Q6HR PRN Pain Losartan Potassium 50 mg 10/22/23 12:00 Losartan 50 Mg Tab PO DAILY@1200 [facility] Metoprolol Tartrate 50 mg 10/22/23 09:00 Metoprolol Tartrate 50 Mg Tab PO BID [facility] Multivitamins 1 each 10/22/23 09:00 Multivitamins, Thera 1 Each Tab PO DAILY [facility] Nitroglycerin 0.4 mg 10/21/23 23:43 Nitroglycerin Sl Tabs 0.4 Mg Tab SUBLINGUAL Q5M PRN Chest Pain Pantoprazole Sodium 40 mg 10/22/23 07:30 Pantoprazole 40 Mg Tablet PO AC-BRKFST [facility] Senna/Docusate Sodium 2 each 10/22/23 06:34 Sennosides-Docusate Sodium 1 Each Tab PO HS PRN Constipation Intake and Output 10/21/23 10/22/23 10/22/23 22:59 06:59 14:59 Intake Total 240 Balance 240 Intake: Oral 240 Other: # Voids 1 Weight 56.699 kg 56.699 kg 10/21/23 22:52 10/21/23 22:52
--- NOTE | 2023-10-22 08:52 | P.GSCN ---
History of Present Illness Consult date: 10/22/23 Reason for Consult: Known to our services from open heart surgery 1 month ago Requesting physician: Ronen Ruff History of present illness: This is a 58-year-old gentleman who is supposed to follow outpatient with the [facility] and Dr. Adhikari for cardiology. He has a previous medical history of coronary artery disease/unstable angina and previous myocardial infarction's status post multiple stents as well as CABG, hypertension, hyperlipidemia, recent tobacco cessation, marijuana use, previous heavy EtOH use, peripheral arterial disease with claudication, left internal carotid artery stenosis with possible TIA in the past, medical noncompliance, and family history of premature coronary artery disease. This gentleman was hospitalized in August with chest pain and underwent single-vessel off-pump coronary artery bypass surgery on September 16. He recovered nicely without complications and was discharged on September 26, 2023 to rehab as he currently has no permanent living situation. He was discharged from rehab a couple of weeks ago and has been living in a hotel. He presented back to [facility] emergency room last night with complaints of postsurgical chest pain as well as redness and drainage from the superior portion of his sternal incision. Chest x-ray in the emergency room showed no acute process, all sternal wires appear to be intact. EKG demonstrated normal sinus rhythm. Lab work revealed elevated WBC 13, troponins were negative x 3, CO2 18, D-dimer 1.36, the rest of his lab work was unremarkable. The patient was admitted for to observation status with consultation placed to cardiothoracic surgery as well as cardiology for recommendations. Review of Systems Review of systems was completed and was negative except as noted - Cardiovascular Reports as per HPI, Reports chest pain - Integumentary Reports wounds Past Medical History Past Medical History: Coronary Artery Disease (CAD), Chest Pain / Angina, Hyperlipidemia, Hypertension, Myocardial Infarction ([place]) Additional Past Medical History / Comment(s): PT states he ahs 7 cardiac stents. Pt states he lost his card. Last Myocardial Infarction Date:: 2016 History of Any Multi-Drug Resistant Organisms: None Reported Past Surgical History: Coronary Bypass/CABG, Heart Catheterization With Stent Additional Past Surgical History / Comment(s): Single-vessel off-pump CABG September 17, 2023 Past Anesthesia/Blood Transfusion Reactions: No Reported Reaction Date of Last Stent Placement:: 2016 Past Psychological History: Anxiety, Depression Smoking Status: Former smoker Past Alcohol Use History: Abuse Past Drug Use History: Marijuana - Past Family History Father Family Medical History: Coronary Artery Disease (CAD), Myocardial Infarction ([place]) Additional Family Medical History / Comment(s): from myocardial infarction in his 40s Mother Family Medical History: COPD Additional Family Medical History / Comment(s): from COPD in her 70s Brother(s) Family Medical History: Coronary Artery Disease (CAD) Additional Family Medical History / Comment(s): Had CABG at a young age Medications and Allergies Home Medications Medication Instructions Recorded Confirmed Type Metoprolol Tartrate [Lopressor] 50 mg PO BID 05/27/23 10/22/23 History Amiodarone [Cordarone] 400 mg PO DAILY 14 Days tab 09/26/23 10/22/23 Rx Aspirin 325 mg PO DAILY tab 09/26/23 10/22/23 Rx Atorvastatin [Lipitor] 40 mg PO DAILY tab 09/26/23 10/22/23 Rx Clopidogrel [Plavix] 75 mg PO DAILY tab 09/26/23 10/22/23 Rx Losartan [Cozaar] 50 mg PO DAILY@1200 tab 09/26/23 10/22/23 Rx Pantoprazole [Protonix] 40 mg PO AC-BRKFST tab 09/26/23 10/22/23 Rx HYDROcodone/APAP 10-325MG [Hoyt 1 tab PO Q6HR PRN 10/22/23 10/22/23 History 10-325] Ipratropium-Albuterol Nebulize 3 ml INHALATION RT-QID PRN 10/22/23 10/22/23 History [Duoneb 0.5 mg-3 mg/3 ml Soln] Allergies Allergy/AdvReac Type Severity Reaction Status Date / Time No Known Allergies Allergy Verified 10/22/23 07:46 Surgical - Exam Vital Signs Temp Pulse Resp BP Pulse Ox 97.5 F L 67 18 193/93 99 10/21/23 22:36 10/21/23 22:36 10/21/23 22:36 10/21/23 22:36 10/21/23 22:36 CONSTITUTIONAL: Awake and alert, appears comfortable, cooperative, well- developed, well-nourished, no pain, no acute distress EYES: Pupils equal, round, reactive to light, normal ocular movement ENT: Moist mucous membranes without oral lesions present NECK: No masses, no bruits, trachea midline RESPIRATORY: Lungs sounds clear to auscultation bilaterally. Respirations even, nonlabored. Currently on room air with oxygen saturation 98%. Strong cough CARDIOVASCULAR: S1, S2 present. Regular rate and rhythm. Sternum is movable. Palpable peripheral pulses bilaterally. No edema present. No calf pain or tenderness noted GASTROINTESTINAL: Abdomen soft, nontender, nondistended without masses or organomegaly noted. There is no rebound or guarding present. Active bowel sounds present 4 quadrants. GENITOURINARY: Deferred INTEGUMENTARY: Skin is warm. Anterior chest sternal incision well-approximated although there is some reddish-brownish tinged fluid draining from the superior portion NEUROLOGIC: Cranial nerves II through XII intact, normal coordination, no obvious motor or sensory deficits, speech is normal MUSKULOSKELETAL: Able to move all extremities, strength equal bilaterally, normal posture PSYCHIATRIC: Alert and oriented to person place and time, appropriate affect, intact judgment and insight Results - Labs 10/23/23 09:03 10/23/23 09:03 Abnormal Lab Results - Last 24 Hours (Table) 10/21/23 10/21/23 10/21/23 Range/Units 22:52 22:52 22:52 WBC 13.0 H (3.8-10.6) k/uL Neutrophils # 10.8 H (1.3-7.7) k/uL D-Dimer 1.36 H (<0.60) mg/L FEU Chloride 109 H (98-107) mmol/L Carbon Dioxide 18 L (22-30) mmol/L Glucose 113 H (74-99) mg/dL Diabetes panel 10/21/23 Range/Units 22:52 Sodium 140 (137-145) mmol/L Potassium 4.1 (3.5-5.1) mmol/L Chloride 109 H (98-107) mmol/L Carbon Dioxide 18 L (22-30) mmol/L BUN 18 (9-20) mg/dL Creatinine 0.82 (0.66-1.25) mg/dL Glucose 113 H (74-99) mg/dL Calcium 9.4 (8.4-10.2) mg/dL AST 21 (17-59) U/L ALT 19 (4-49) U/L Alkaline Phosphatase 102 (38-126) U/L Total Protein 7.0 (6.3-8.2) g/dL Albumin 4.5 (3.5-5.0) g/dL Calcium panel 10/21/23 Range/Units 22:52 Calcium 9.4 (8.4-10.2) mg/dL Albumin 4.5 (3.5-5.0) g/dL Pituitary panel 10/21/23 Range/Units 22:52 Sodium 140 (137-145) mmol/L Potassium 4.1 (3.5-5.1) mmol/L Chloride 109 H (98-107) mmol/L Carbon Dioxide 18 L (22-30) mmol/L BUN 18 (9-20) mg/dL Creatinine 0.82 (0.66-1.25) mg/dL Glucose 113 H (74-99) mg/dL Calcium 9.4 (8.4-10.2) mg/dL Adrenal panel 10/21/23 Range/Units 22:52 Sodium 140 (137-145) mmol/L Potassium 4.1 (3.5-5.1) mmol/L Chloride 109 H (98-107) mmol/L Carbon Dioxide 18 L (22-30) mmol/L BUN 18 (9-20) mg/dL Creatinine 0.82 (0.66-1.25) mg/dL Glucose 113 H (74-99) mg/dL Calcium 9.4 (8.4-10.2) mg/dL Total Bilirubin 0.4 (0.2-1.3) mg/dL AST 21 (17-59) U/L ALT 19 (4-49) U/L Alkaline Phosphatase 102 (38-126) U/L Total Protein 7.0 (6.3-8.2) g/dL Albumin 4.5 (3.5-5.0) g/dL - Imaging Chest x-ray: report reviewed, image reviewed EKG: image reviewed Assessment and Plan Assessment: Drainage from superior portion of sternal incision Leukocytosis, afebrile Postsurgical chest pain, expected History of coronary artery disease/unstable angina and previous myocardial infarction's status post multiple stents as well as CABG Hypertension Hyperlipidemia Recent tobacco cessation Marijuana use Previous heavy EtOH use Peripheral arterial disease with claudication Left internal carotid artery stenosis with possible TIA in the past Medical noncompliance Family history of premature coronary artery disease Plan: The patient was seen and examined sitting up in bed on the observation unit in no acute distress. Chart/diagnostics reviewed. There does appear to be a small amount of drainage from the superior portion of his sternal incision, it is reddened although the patient keeps touching it. He does state he has been compliant with showering daily, denies any fevers. White count is a bit elevated at 13. We will start patient on oral Keflex. No culture needed as it will only demonstrate skin contamination. Will obtain CT of the chest to evaluate for sternal infection, fluid under the sternum. Unless there is a major fluid pocket necessitating reopening his sternal incision the patient should be discharged today to follow-up with Dr. Dee for scheduled appointment in the office on . Of note patient reports he ran out of his medication except metoprolol about 6 days ago, he was counseled regarding the need to be compliant with his medications and follow-up appointments. We will place heart hugger back on patient due to sternal instability. Patient was counseled regarding the need for 2 more months of sternal precautions. IV morphine discontinued, Hoyt ordered for pain. Postsurgical pain is expected. Case was discussed in great detail with Dr. Dee who agrees with the above assessment and plan. Thank you for this consult. I have personally seen and examined the patient, performed the documentation and the assessment and plan as written. Number of minutes spent on the visit: 30. YAMINI Aviles Attending Addendum: Pt seen and evaluated with Photograph Finisher above. Agree with her assessment and plan. I spent 35 minutes reviewing the data and discussing the plan of care with the team. Time with Patient: Greater than 30
[2023-10-22] MEDS ORDERED: ASPIRIN 325 MG TAB PO SCH (09:00)
[2023-10-22] MEDS ORDERED: CEPHALEXIN 500 MG CAP PO SCH (09:00)
--- NOTE | 2023-10-22 09:09 | CT ---
EXAMINATION TYPE: CT chest wo con DATE OF EXAM: 10/22/2023 COMPARISON: 09/11/2023 preoperative evaluation HISTORY: eval for sternal infection CT DLP: [address] of the chest was performed with lung and mediastinal window settings submitted. The la ck of contrast limits evaluation of the vascular, mediastinal and parenchymal structures including th e upper abdomen. LUNGS: The lungs are clear and free of infiltrate. Mild left basilar atelectasis. No pulmonary nodule or mass is detected. No pleural effusion. No CT evidence of interstitial lung disease. MEDIASTINUM/SAADIA: Thoracic aorta is of normal caliber with limited evaluation given lack of contrast . The heart is not enlarged. No evidence for mediastinal mass. No lymph nodes greater than 1cm. UPPER ABDOMEN: No significant abnormality is seen. OTHER: There is evidence of median sternotomy. Just anterior to the xiphoid there is a 8.8 mm fluid c ollection which could reflect seroma. Infected collection is not excluded. There is retrosternal stra nding noted which could be post surgical nature. Infection not excluded. No bony destructive process to suggest osteomyelitis. Sternal wires are intact and in place. IMPRESSION: 1. No bony destructive process to suggest osteomyelitis. Just anterior to the xiphoid there is a 8.8 mm fluid collection which could reflect seroma. Infected collection is not excluded. There is retros ternal stranding noted which could be post surgical nature. Infection not excluded.
[2023-10-22] MEDS: CEPHALEXIN 500 MG CAP PO SCH (09:13)
--- NOTE | 2023-10-22 10:25 | CA ---
Transthoracic Echo Report Name: Jairo Rosen Age: 58 Gender: M : 1965 Exam Date: 10/22/2023 08:04 Exam Location: [facility] Ht (in): 64 Wt (lb): 125 Ordering Physician: Ronen Ruff DO Attending/Referring Phys: [id number], [facility] Director Suzan Siddiqui, DIEGO Procedure CPT: Indications: CP Cardiac Hx: Technical Quality: Good Contrast 1: Total Dose (mL): Contrast 2: Total Dose (mL): MEASUREMENTS (Male / Female) Normal Values 2D ECHO LV Diastolic Diameter PLAX 4.6 cm 4.2 - 5.9 / 3.9 - 5.3 cm LV Systolic Diameter PLAX 3.2 cm IVS Diastolic Thickness 1.2 cm 0.6 - 1.0 / 0.6 - 0.9 cm LVPW Diastolic Thickness 1.1 cm 0.6 - 1.0 / 0.6 - 0.9 cm LV Relative Wall Thickness 0.5 LV Diastolic Volume MOD BP 109.5 cm??? 67 - 155 / 56 - 104 cm??? LV Systolic Volume MOD BP 44.1 cm??? 22 - 58 / 19 - 49 cm??? LV Ejection Fraction MOD BP 59.7 % >= 55 % LV Cardiac Index MOD BP 2733.8 cm???/min???m??? LV Diastolic Volume MOD 4C 106.7 cm??? LV Systolic Volume MOD 4C 48.8 cm??? LV Ejection Fraction MOD 4C 54.2 % LV Cardiac Index MOD 4C 2419.5 cm???/min???m??? LV Diastolic Length 4C 9.1 cm LV Systolic Length 4C 8.0 cm LV Diastolic Volume MOD 2C 113.1 cm??? LV Systolic Volume MOD 2C 36.8 cm??? LV Ejection Fraction MOD 2C 67.5 % LV Cardiac Index MOD 2C 3192.3 cm???/min???m??? LV Diastolic Length 2C 9.1 cm LV Systolic Length 2C 7.3 cm FINDINGS Left Ventricle Left ventricular ejection fraction is estimated at 55-60 %. Mildly increased septal wall thickness. Left ventricular cavity size normal. Right Ventricle Normal right ventricular size and function. Unable to estimate the right ventricular systolic pressure. Right Atrium Right atrium not assessed. Left Atrium Left atrium not assessed. Mitral Valve Structurally normal mitral valve. Trace mitral regurgitation. Aortic Valve Aortic valve not well visualized. Tricuspid Valve Structurally normal tricuspid valve. Pulmonic Valve Pulmonic valve not well visualized. Pericardium No pericardial effusion. Aorta Aortic root and proximal ascending aorta not well visualized. CONCLUSIONS Left ventricular hypertrophy with normal LV systolic function Previewed by: Dr. Tavares Torres MD (Electronically Signed) Final Date: 22 October 2023 10:24
[2023-10-22 11:40] VITALS: BMI 21.4
[2023-10-22] MEDS: LOSARTAN 50 MG TAB PO SCH (12:36)
[2023-10-22] MEDS ORDERED: VANCOMYCIN IV PER PHARMACY 1 EACH MISC MISCELLANE PRN (12:49)
[2023-10-22] MEDS: VANCOMYCIN 1,000 MG in SODIUM CHLORIDE 0.9% 250 ML IVPB SCH (13:14)
--- NOTE | 2023-10-22 14:09 | P.HPIM ---
History of Present Illness H&P Date: 10/22/23 History of Presenting Illness: Patient is a very pleasant 58-year-old male with a past medical history of CAD status post previous stenting and CABG x 1, hypertension, hyperlipidemia, anxiety, depression, and nicotine dependence. He recently underwent a CABG x 1 on 09/17/2023 and [facility]. Patient reports being discharged from rehab 2 weeks ago and has been living in a motel. He reports that he has been experiencing mild chest pain/discomfort over his incision site for the past 2 to 3 days and noticed some redness surrounding his incision site to his chest so he came to the emergency department for evaluation. Patient denies having any fevers, chills, headache, lightheadedness, dizziness, palpitations, shortness of breath, or experiencing any nausea, vomiting, or any other complaints at this time. He does report having a small amount of drainage noted from the top of his incision site. Upon arrival to our facility, patient underwent evaluation in the emergency department. Vital signs upon arrival show blood pressure 193/93, heart rate 67, respiratory rate 18, temp 97.5 F, and SpO2 of 99% on room air. EKG showing normal sinus rhythm at 63 bpm with no noted T wave or ST abnormalities showing no signs of acute ischemia upon personal review and interpretation. Chest x-ray negative for acute cardiopulmonary process. Labs completed and reviewed. CBC showing leukocytosis with WBC count of 13.0. Coagulation profile showing slightly elevated D-dimer of 1.36, expected finding with recent surgery and patient denies having any shortness of breath or palpitations only experiencing incisional pain. BMP showing high anion gap metabolic acidosis with chloride of 109, bicarb of 18, and anion gap of 13. Renal function unremarkable. Blood glucose 113. Magnesium 2.1. Troponin negative at less than 0.012. Patient admitted under our services with consultation to cardiology, cardiothoracic surgery, and infectious disease. Review of systems: Pertinent positives and negatives as discussed in HPI, a complete review of systems was performed and all other systems are negative. Physical exam: Vital signs reviewed and stable. General: Nontoxic, no distress and appears stated age. Derm: Skin warm and dry, normal coloration for ethnicity. Incision to midline chest/sternum with mild erythema. No active drainage noted at this time. Head: Atraumatic, normocephalic and symmetric. Eyes: EOMs intact, no lid lag, and anicteric sclera Mouth: no lip lesions, mucus membranes moist Cardiovascular: regular rate and rhythm with normal S1S2, no murmur, positive posterior tibial pulses bilaterally, and cap refill < 2 seconds. Lungs: Respirations even, regular, and unlabored on room air. Lungs CTA bila terally, no rhonchi, no rales, no wheezing, and no accessory muscle usage. Abdominal: soft, nontender to palpation, no guarding, no appreciable organomegaly Ext: ROM intact. No gross muscle atrophy, no edema, no contractures Neuro: Speech clear, face symmetrical and CN II-XII grossly intact with no noted focal neuro deficits Psych: Alert and oriented to person, place, time, and situation. Appropriate and pleasant affect. Assessment and Plan of Care: Atypical chest pain, suspect postsurgical pain Status post CABG x 1 CAD Hypertension Hyperlipidemia -Cardiothoracic surgery consulted, discussed plan of care with cardiothoracic WORKGROUP LEADER please placing order for chest CT without contrast. -Patient started on Keflex 1000 mg twice daily -Cardiology consulted, appreciate recommendations -Infectious disease consulted, appreciate recommendations -Telemetry monitoring -Trend troponins and obtain repeat echocardiogram -Cardiac diet -Continue cardiac medication regimen with aspirin 325 mg daily, atorvastatin 40 mg daily, Plavix 75 mg daily, losartan 50 mg daily, and metoprolol 50 mg twice daily. Anxiety -Order placed for Xanax 0.5 mg 3 times daily as needed for anxiety. Data and imaging reviewed: As stated above in HPI The patient is admitted with an anticipated less than 2 midnight stay for evaluation of chest/incisional pain CODE STATUS: Full code DVT prophylaxis: Heparin Anticipated discharge date: Pending clinical course Anticipated discharge place: Home Patient was seen independently by Nurse Practitioner. This document was prepared using [employer] dictation software. Please allow for errors in territory sales executive while rare they do occur. Past Medical History Past Medical History: Chest Pain / Angina, Hypertension, Myocardial Infarction ([place]) Additional Past Medical History / Comment(s): PT states he ahs 7 cardiac stents. Pt states he lost his card. Last Myocardial Infarction Date:: 2016 History of Any Multi-Drug Resistant Organisms: None Reported Past Surgical History: Heart Catheterization With Stent Past Anesthesia/Blood Transfusion Reactions: No Reported Reaction Date of Last Stent Placement:: 2016 Past Psychological History: Anxiety, Depression Smoking Status: Current every day smoker Past Alcohol Use History: Abuse Past Drug Use History: Marijuana - Past Family History Father Family Medical History: Coronary Artery Disease (CAD), Myocardial Infarction ([place]) Additional Family Medical History / Comment(s): from myocardial infarction in his 40s Mother Family Medical History: COPD Additional Family Medical History / Comment(s): from COPD in her 70s Brother(s) Family Medical History: Coronary Artery Disease (CAD) Additional Family Medical History / Comment(s): Had CABG at a young age Medications and Allergies Home Medications Medication Instructions Recorded Confirmed Type Metoprolol Tartrate [Lopressor] 50 mg PO BID 05/27/23 10/22/23 History Amiodarone [Cordarone] 400 mg PO DAILY 14 Days tab 09/26/23 10/22/23 Rx Aspirin 325 mg PO DAILY tab 09/26/23 10/22/23 Rx Atorvastatin [Lipitor] 40 mg PO DAILY tab 09/26/23 10/22/23 Rx Clopidogrel [Plavix] 75 mg PO DAILY tab 09/26/23 10/22/23 Rx Losartan [Cozaar] 50 mg PO DAILY@1200 tab 09/26/23 10/22/23 Rx Pantoprazole [Protonix] 40 mg PO AC-BRKFST tab 09/26/23 10/22/23 Rx HYDROcodone/APAP 10-325MG [[place] 1 tab PO Q6HR PRN 10/22/23 10/22/23 History 10-325] Ipratropium-Albuterol Nebulize 3 ml INHALATION RT-QID PRN 10/22/23 10/22/23 History [Duoneb 0.5 mg-3 mg/3 ml Soln] Allergies Allergy/AdvReac Type Severity Reaction Status Date / Time No Known Allergies Allergy Verified 10/22/23 07:46 Physical Exam Vitals: Vital Signs Temp Pulse Pulse Resp BP BP Pulse Ox 10/22/23 07:00 98.3 F 72 16 138/82 98 10/22/23 00:48 98.0 F 66 18 147/77 98 10/22/23 00:05 65 18 117/80 98 10/21/23 22:36 97.5 F L 67 18 193/93 99 Intake and Output 10/21/23 10/22/23 10/22/23 22:59 06:59 14:59 Intake Total 240 Balance 240 Intake: Oral 240 Other: # Voids 1 Weight 56.699 kg 56.699 kg Results CBC & Chem 7: 10/21/23 22:52 10/21/23 22:52 Labs: Abnormal Lab Results - Last 24 Hours (Table) 10/21/23 10/21/23 10/21/23 Range/Units 22:52 22:52 22:52 WBC 13.0 H (3.8-10.6) k/uL Neutrophils # 10.8 H (1.3-7.7) k/uL D-Dimer 1.36 H (<0.60) mg/L FEU Chloride 109 H (98-107) mmol/L Carbon Dioxide 18 L (22-30) mmol/L Glucose 113 H (74-99) mg/dL Thrombosis Risk Factor Assmnt - Choose All That Apply Any of the Below Risk Factors Present?: Yes Each Factor Represents 1 point: Age 41-60 years Each Risk Factor Represents 2 Points: Major surgery Thrombosis Risk Factor Assessment Total Risk Factor Score: 3 Thrombosis Risk Factor Assessment Level: Moderate Risk
[2023-10-22] MEDS: ALPRAZolam 0.5 MG TAB PO PRN (21:41)
--- NOTE | 2023-10-22 22:27 | P.CONS ---
History of Present Illness - Reason for Consult Consult date: 10/22/23 Wound infection Requesting physician: Moon Mendoza - Chief Complaint Swelling pain and drainage to the upper end of chest incision x 3 days - History of Present Illness Patient is a 58-year-old male with a past medical history significant for hypertension hyperlipidemia [place] coronary artery disease in this patient who is status post single-vessel off-pump coronary bypass grafting on September 17, 2023 patient apparently was [facility] from July the patient has been discharged about 2 weeks ago and has been living in a motel patient has been complaining of some discomfort to the upper end of the chest for the last 3 to 4 days patient noticed to have some erythema to the upper end of incision and started having some drainage that concerned him for the patient present to the hospital patient was complaining of pain to the upper incision mostly dull aching mild to moderate intensity without any radiation and radiation has been mild patient denies high-grade fever and no fever was recorded on presentation to the hospital patient was not tachycardic hypotensive or hypoxic he did have a white count of 13,000 with a left shift creatinine 0.82 electrolytes are normal liver enzymes are normal troponin has be en negative patient did have a chest x-ray no acute cardiopulmonary process patient did have a CT of the chest ordered by CT surgery no destructive process to suggest osteomyelitis just anterior to the xiphoid there is a 8 mm fluid collection which could reflect seroma infected seroma is not excluded there is retrosternal stranding noted which could be postsurgical nature of infection and excluded patient was started on oral Keflex by CT surgery infectious disease was consulted for further management of antibiotic therapy Review of Systems Positive point and negatives has been mentioned in the HPI, complete review of systems was performed and all other systems are negative Past Medical History Past Medical History: Coronary Artery Disease (CAD), Chest Pain / Angina, Hyperlipidemia, Hypertension, Myocardial Infarction ([place]) Additional Past Medical History / Comment(s): PT states he ahs 7 cardiac stents. Pt states he lost his card. Last Myocardial Infarction Date:: 2016 History of Any Multi-Drug Resistant Organisms: None Reported Past Surgical History: Coronary Bypass/CABG, Heart Catheterization With Stent Additional Past Surgical History / Comment(s): Single-vessel off-pump CABG September 17, 2023 Past Anesthesia/Blood Transfusion Reactions: No Reported Reaction Date of Last Stent Placement:: 2017 Past Psychological History: Anxiety, Depression Smoking Status: Former smoker Past Alcohol Use History: Abuse Past Drug Use History: Marijuana - Past Family History Father Family Medical History: Coronary Artery Disease (CAD), Myocardial Infarction ([place]) Additional Family Medical History / Comment(s): from myocardial infarction in his 40s Mother Family Medical History: COPD Additional Family Medical History / Comment(s): from COPD in her 70s Brother(s) Family Medical History: Coronary Artery Disease (CAD) Additional Family Medical History / Comment(s): Had CABG at a young age Medications and Allergies Home Medications Medication Instructions Recorded Confirmed Type Metoprolol Tartrate [Lopressor] 50 mg PO BID 05/27/23 10/22/23 History Amiodarone [Cordarone] 400 mg PO DAILY 14 Days tab 09/26/23 10/22/23 Rx Aspirin 325 mg PO DAILY tab 09/26/23 10/22/23 Rx Atorvastatin [Lipitor] 40 mg PO DAILY tab 09/26/23 10/22/23 Rx Clopidogrel [Plavix] 75 mg PO DAILY tab 09/26/23 10/22/23 Rx Losartan [Cozaar] 50 mg PO DAILY@1200 tab 09/26/23 10/22/23 Rx Pantoprazole [Protonix] 40 mg PO AC-BRKFST tab 09/26/23 10/22/23 Rx HYDROcodone/APAP 10-325MG [[place] 1 tab PO Q6HR PRN 10/22/23 10/22/23 History 10-325] Ipratropium-Albuterol Nebulize 3 ml INHALATION RT-QID PRN 10/22/23 10/22/23 History [Duoneb 0.5 mg-3 mg/3 ml Soln] Allergies Allergy/AdvReac Type Severity Reaction Status Date / Time No Known Allergies Allergy Verified 10/22/23 07:46 Physical Exam Vitals: Vital Signs Temp Pulse Pulse Resp BP BP Pulse Ox 10/22/23 11:19 68 10/22/23 08:10 64 10/22/23 08:01 64 10/22/23 08:00 72 16 10/22/23 07:00 98.3 F 72 16 138/82 98 10/22/23 00:48 98.0 F 66 18 147/77 98 10/22/23 00:05 65 18 117/80 98 10/21/23 22:36 97.5 F L 67 18 193/93 99 Intake and Output 10/21/23 10/22/23 10/22/23 22:59 06:59 14:59 Intake Total 240 60 Balance 240 60 Intake: Oral 240 60 Other: # Voids 1 Weight 56.699 kg 56.699 kg GENERAL DESCRIPTION: Middle-aged male lying in bed, no distress. No tachypnea or accessory muscle of respiration use. HEENT: Shows Pallor , no scleral icterus. Oral mucous membrane is dry. No pharyngeal erythema or thrush NECK: Trachea central, no thyromegaly. LUNGS: Unlabored breathing. Clear to auscultation anteriorly. No wheeze or crackle. HEART: S1, S2, regular rate and rhythm. No loud murmur ABDOMEN: Soft, no tenderness , guarding or rigidity, no organomegaly EXTREMITIES: No edema of feet. SKIN: Patient did have thick purulent drainage from the upper end of the incision by minimal pressure which has been cultured NEUROLOGICAL: The patient is awake, alert, oriented x3, mood and affect normal. Results CBC & Chem 7: 10/21/23 22:52 10/21/23 22:52 Labs: Abnormal Lab Results - Last 24 Hours (Table) 10/21/23 10/21/23 10/21/23 Range/Units 22:52 22:52 22:52 WBC 13.0 H (3.8-10.6) k/uL Neutrophils # 10.8 H (1.3-7.7) k/uL D-Dimer 1.36 H (<0.60) mg/L FEU Chloride 109 H (98-107) mmol/L Carbon Dioxide 18 L (22-30) mmol/L Glucose 113 H (74-99) mg/dL LDL Cholesterol, Calc (0.0-131.0) mg/dL HDL Cholesterol (40.00-60.00) mg/dL 10/22/23 Range/Units 03:29 WBC (3.8-10.6) k/uL Neutrophils # (1.3-7.7) k/uL D-Dimer (<0.60) mg/L FEU Chloride (98-107) mmol/L Carbon Dioxide (22-30) mmol/L Glucose (74-99) mg/dL LDL Cholesterol, Calc 136.4 H (0.0-131.0) mg/dL HDL Cholesterol 38.60 L (40.00-60.00) mg/dL Assessment and Plan (1) Incisional infection Current Visit: Yes Status: Acute Code(s): T81.49XA - INFECTION FOLLOWING A PROCEDURE, OTHER SURGICAL SITE, INIT SNOMED Code(s): 35308240 (2) Cellulitis of chest wall Current Visit: Yes Status: Acute Code(s): L03.313 - CELLULITIS OF CHEST WALL SNOMED Code(s): 40125559 (3) Abscess or cellulitis of chest wall Current Visit: Yes Status: Acute Code(s): RFZ0065 - SNOMED Code(s): 340365403 Plan: 1patient presented to hospital with pain to the point of sternal incision in addition to the drainage he did have erythema also have elevated white count CT did shows abnormality with the fluid collection that was easily expressed out by gentle pressure and culture has been obtained likely from gram-positive skin amador such as Staph aureus and will need to cover for MRSA pending culture finalization 2-we will repeat blood cultures CRP and sed rate 3-discontinue Keflex 4-vancomycin pharmacy to dose target trough of 15 while watching kidney function and Vanco trough closely pending culture finalization We will follow on clinical condition and cultures to further adjust medication if needed Thank you for this consultation we will follow the patient along with you Dictation was produced using [employer] dictation software. please excuse any grammatical, word or spelling errors. Time with Patient: Greater than 30
[2023-10-23] MEDS: HEPARIN SODIUM,PORCINE 5,000 UNIT/ML 1 ML VIAL SQ SCH (01:09)
--- NOTE | 2023-10-23 08:59 | P.PN ---
Subjective Progress Note Date: 10/23/23 Principal diagnosis: Drainage from superior portion of sternal incision, leukocytosis. History of coronary artery disease/unstable angina and previous myocardial infarction's status post multiple stents as well as CABG, hypertension, hyperlipidemia, recent tobacco cessation, marijuana use, previous heavy EtOH use, peripheral arterial disease with claudication, left internal carotid artery stenosis with possible TIA in the past, medical noncompliance, family history of premature coronary artery disease The patient was seen and examined sitting up at the bedside on the observation unit in no acute distress. He was seen yesterday by infectious disease who did express material from the superior portion of his sternal incision, sent for culture, Gram stain preliminarily negative at 24 hours. Patient has remained afebrile. Keflex discontinued, IV vancomycin started per infectious disease. CT of the chest reviewed by Dr. Yap and Dr. Dee. Objective - Vital Signs Vital signs: Vital Signs Temp 98.7 F 10/23/23 02:00 Pulse 68 10/23/23 02:00 Resp 18 10/23/23 02:00 BP 153/83 10/23/23 02:00 Pulse Ox 97 10/23/23 02:00 FiO2 Intake & Output 10/22/23 10/23/23 10/23/23 18:59 06:59 18:59 Intake Total 296 1198 Output Total 2 Balance 296 1196 Weight 56.699 kg 57.3 kg Intake: Oral 296 1198 Output: Urine 2 Other: # Voids 4 3 # Bowel Movements 0 - Exam CONSTITUTIONAL: Appears comfortable, cooperative, no acute distress RESPIRATORY: Lungs sounds diminished bilaterally. Respirations even, nonlabored. Currently on room air with oxygen saturation 97%. Able to achieve 2000 mL on incentive spirometry. Strong cough. CARDIOVASCULAR: S1, S2 present. Regular rate and rhythm. Sternum nonunion present. Palpable peripheral pulses bilaterally. No edema present. No calf pain or tenderness noted. Heart hugger in place with patient demonstrating appropriate use GASTROINTESTINAL: Abdomen soft, nontender, nondistended. Active bowel sounds present 4 quadrants. Tolerating diet GENITOURINARY: Continues to void INTEGUMENTARY: Skin is warm and dry. Anterior chest incision with drainage present from superior portion NEUROLOGIC: Cranial nerves II through XII intact MUSKULOSKELETAL: Able to move all extremities, strength equal bilaterally, gait normal PSYCHIATRIC: Alert and oriented to person place and time, appropriate affect, intact judgment and insight - Allied health notes Allied health notes reviewed: nursing - Labs CBC & Chem 7: 10/21/23 22:52 10/21/23 22:52 Labs: Abnormal Lab Results - Last 24 Hours (Table) 10/22/23 10/22/23 10/22/23 Range/Units 03:29 12:08 12:08 ESR 44 H (0-20) mm/Hr C-Reactive Protein 1.2 H (<1.0) mg/dL LDL Cholesterol, Calc 136.4 H (0.0-131.0) mg/dL HDL Cholesterol 38.60 L (40.00-60.00) mg/dL Microbiology - Last 24 Hours (Table) 10/22/23 11:50 Gram Stain - Preliminary Chest Assessment and Plan Assessment: Drainage from superior portion of sternal incision, Gram stain preliminarily negative Leukocytosis, afebrile Postsurgical chest pain, expected History of coronary artery disease/unstable angina and previous myocardial infarction's status post multiple stents as well as CABG Hypertension Hyperlipidemia Recent tobacco cessation Marijuana use Previous heavy EtOH use Peripheral arterial disease with claudication Left internal carotid artery stenosis with possible TIA in the past Medical noncompliance Family history of premature coronary artery disease Plan: Recommend discharge to home on oral antibiotics to follow-up in the office tomorrow with Dr. Dee Continue sternal precautions for another 2 months Heart hugger placed back on patient, encouraged to use Continue to shower daily medication compliance encouraged Post open heart discharge instructions placed on the patient's discharge plan
[2023-10-23 09:13] LABS: Basophils # (A) 0.1 k/uL (0-0.2); Basophils % (A) 1 %; Eosinophils # (A) 0.4 k/uL (0-0.7); Eosinophils % (A) 4 %; HCT 42.2 % (39.0-53.0); HGB 13.5 gm/dL (13.0-17.5); Hypochromasia Marked; Lymphocytes # (A) 1.2 k/uL (1.0-4.8); Lymphocytes % (A) 12 %; MCH 30.7 pg (25.0-35.0); Mean Platelet Volume 7.4; Monocytes # (A) 0.7 k/uL (0-1.0); Monocytes % (A) 7 %; Neutrophils # (A) 7.3 k/uL (1.3-7.7); Neutrophils % (A) 75 %; Platelet Count 397 k/uL (150-450); RBC 4.39 m/uL (4.30-5.90); RDW 13.8 % (11.5-15.5); WBC 9.8 k/uL (3.8-10.6)
--- NOTE | 2023-10-23 10:32 | P.PN ---
Subjective Progress Note Date: 10/23/23 Consult reason: chest pain History of present illness: This is a 58-year-old male with self-reported past medical history of 6 heart attacks, 7 cardiac stents, 100% left carotid stenosis, PAD, glaucoma. Patient was recently hospitalized found to have coronary artery disease status post coronary artery bypass grafting x 1, left internal thoracic artery (in-situ) to left anterior descending coronary artery on 09/[address] Dee. Patient states that he knew the wound was infected and he had pus leaking out and came back to the hospital for further evaluation. Patient was to have a follow-up visit with Dr. Adhikari in 1 week and unable to determine why this did not happen. He has had occasions in the past when he has not shown up for appointments. Blood pressure 132/82, heart rate is in the 60s, pulse ox 98% on room air, afebrile. EKG: Sinus rhythm with no acute ST-T wave changes Chest x-ray: No acute process Laboratory studies: WBC 13, hemoglobin 13.3. D-dimer 1.36. Sodium 140, potassium 4.1, creatinine 0.82. Troponin negative x 3. Home cardiac medications: Amiodarone 400 mg daily, aspirin 325 mg daily, atorvastatin 40 mg daily, Plavix 75 mg daily, losartan 50 mg at noon, Lopressor 50 mg twice daily. Echocardiogram performed on 09/10/2023 revealed preserved LV size and function with inferior basal and inferior septal akinesis. Thickened aortic valve leaflets without stenosis. Cardiac catheterization performed on 09/10/2023 revealed 80% mid LAD stenosis, 100% ostial RCA stenosis, prior stenting of the RCA with 100% in-stent stenosis, left to right collaterals filling PL branch, normal LVEDP. 10/22 Patient is seen and examined. He has been seen by infectious disease and pus was extracted from the wound and the wound culture sent. Patient was also started on vancomycin IV. Patient denies any new concerns today. Patient is afebrile, heart rate 64, blood pressure 134/78, pulse ox 98% on room air. WBC 9.8, hemoglobin 13.5. Sed rate was 44. C-reactive protein 1.2. CT of the chest revealed no bony destructive process to suggest osteomyelitis. There is a 8.8 mm fluid collection which could reveal flecked seroma. Infected collection is not excluded. There is retrosternal stranding noted which could be postsurgical in nature. Infection not excluded. Echocardiogram reveals normal LV systolic function. Physical examination: Gen: This is a 58-year-old male in no acute distress VS: reviewed HEENT: Head is atraumatic, normocephalic. Pupils equal, round. Sclerae is anicteric. NECK: Supple. No JVD. LUNGS: Clear to auscultation. No wheezes or rhonchi. No intercostal retractions. HEART: Regular rate and rhythm. No murmur. ABDOMEN: Soft No tenderness. EXTREMITIES: No pedal edema. No calf tenderness. NEUROLOGICAL: Patient is awake, alert and oriented x3. Assessment: Atypical chest pain, most likely coming from sternal wound pain Sternal wound infection Recent CABG x 1 09/16 History of coronary artery disease with previous stenting History of carotid artery disease PAD in the bilateral lower extremities Hypertension Tobacco use and dependence History of medical noncompliance Plan: Resume patient's home cardiac medication Consult infectious disease appreciated Smoking cessation, patient will be given [employer] quit line information Thank you kindly for this consultation. Nurse practitioner note has been reviewed, I agree with documented findings and plan of care. Patient was seen and examined. Objective - Vital Signs Vital signs: Vital Signs Temp 98 F 10/23/23 07:04 Pulse 63 10/23/23 07:04 Resp 17 10/23/23 07:04 BP 134/78 10/23/23 07:04 Pulse Ox 98 10/23/23 07:04 FiO2 Intake & Output 10/22/23 10/23/23 10/23/23 18:59 06:59 18:59 Intake Total 296 1198 Output Total 2 Balance 296 1196 Weight 56.699 kg 57.3 kg Intake: Oral 296 1198 Output: Urine 2 Other: # Voids 4 3 # Bowel Movements 0 - Labs CBC & Chem 7: 10/23/23 09:03 10/21/23 22:52 Labs: Abnormal Lab Results - Last 24 Hours (Table) 10/22/23 10/22/23 10/22/23 Range/Units 03:29 12:08 12:08 ESR 44 H (0-20) mm/Hr C-Reactive Protein 1.2 H (<1.0) mg/dL LDL Cholesterol, Calc 136.4 H (0.0-131.0) mg/dL HDL Cholesterol 38.60 L (40.00-60.00) mg/dL Microbiology - Last 24 Hours (Table) 10/22/23 11:50 Gram Stain - Preliminary Chest
[2023-10-23 10:35] LABS: African American GFR (CKD) >90 (>60 ml/min/1.73 sqM); Anion Gap 8 mmol/L; Blood Urea Nitrogen 16 mg/dL (9-20); Calcium 9.2 mg/dL (8.4-10.2); Carbon Dioxide 24 mmol/L (22-30); Chloride 107 mmol/L (98-107); Glucose 124 mg/dL (74-99); Non-African American GFR(CKD) >90 (>60 ml/min/1.73 sqM); Potassium 3.8 mmol/L (3.5-5.1); Sodium 139 mmol/L (137-145)
--- NOTE | 2023-10-23 14:07 | P.PN ---
Subjective Progress Note Date: 10/23/23 Hospital Course: Patient is a very pleasant 58-year-old male with a past medical history of CAD status post previous stenting and CABG x 1, hypertension, hyperlipidemia, anxiety, depression, and nicotine dependence. He recently underwent a CABG x 1 on 09/17/2023 and [facility]. Patient reports being discharged from rehab 2 weeks ago and has been living in a motel. He reports that he has been experiencing mild chest pain/discomfort over his incision site for the past 2 to 3 days and noticed some redness surrounding his incision site to his chest so he came to the emergency department for evaluation. Patient denies having any fevers, chills, headache, lightheadedness, dizziness, palpitations, shortness of breath, or experiencing any nausea, vomiting, or any other complaints at this time. He does report having a small amount of drainage noted from the top of his incision site. Upon arrival to our facility, patient underwent evaluation in the emergency department. Vital signs upon arrival show blood pressure 193/93, heart rate 67, respiratory rate 18, temp 97.5 F, and SpO2 of 99% on room air. EKG showing normal sinus rhythm at 63 bpm with no noted T wave or ST abnormalities showing no signs of acute ischemia upon personal review and interpretation. Chest x-ray negative for acute cardiopulmonary process. Labs completed and reviewed. CBC showing leukocytosis with WBC count of 13.0. Coagulation profile showing slightly elevated D-dimer of 1.36, expected finding with recent surgery and patient denies having any shortness of breath or palpitations only experiencing incisional pain. BMP showing high anion gap metabolic acidosis with chloride of 109, bicarb of 18, and anion gap of 13. Renal function unremarkable. Blood glucose 113. Magnesium 2.1. Troponin negative at less than 0.012. Patient admitted under our services with consultation to cardiology, cardiothoracic surgery, and infectious disease. Physical exam: Vital signs reviewed and stable. General: Nontoxic, no distress and appears stated age. Derm: Skin warm and dry, normal coloration for ethnicity. Incision to midline chest/sternum with mild erythema. No active drainage noted at this time. Head: Atraumatic, normocephalic and symmetric. Eyes: EOMs intact, no lid lag, and anicteric sclera Mouth: no lip lesions, mucus membranes moist Cardiovascular: regular rate and rhythm with normal S1S2, no murmur, positive posterior tibial pulses bilaterally, and cap refill < 2 seconds. Lungs: Respirations even, regular, and unlabored on room air. Lungs CTA bilaterally, no rhonchi, no rales, no wheezing, and no accessory muscle usage. Abdominal: soft, nontender to palpation, no guarding, no appreciable organomegaly Ext: ROM intact. No gross muscle atrophy, no edema, no contractures Neuro: Speech clear, face symmetrical and CN II-XII grossly intact with no noted focal neuro deficits Psych: Alert and oriented to person, place, time, and situation. Appropriate and pleasant affect. Assessment and Plan of Care: Drainage from midsternal incision, rule out infectious process Atypical chest pain, suspect postsurgical pain Status post CABG x 1 on 09/17/23 CAD Hypertension Hyperlipidemia -Cardiothoracic surgery consulted, discussed plan of care with cardiothoracic CAGE CLERK recommending patient discharged home on Keflex 1000 mg twice daily -Infectious disease following, performed bedside drainage from sternal incision and sent for culture. -Preliminary cultures showing no growth x 24 hours -Cardiology following, reviewed documentation in chart -Infectious disease following, awaiting clearance on antibiotic course for disch arge -Telemetry monitoring -Echocardiogram was completed showing preserved EF of 55 to 60% with left ventricular hypertrophy. -Continue cardiac medication regimen with aspirin 325 mg daily, atorvastatin 40 mg daily, Plavix 75 mg daily, losartan 50 mg daily, and metoprolol 50 mg twice daily. Anxiety -Continue Xanax 0.5 mg 3 times daily as needed for anxiety. Data and imaging reviewed: Wound culture showing no growth to date CBC showing resolution of leukocytosis with WBC count of 9.8. ESR 44. BMP unremarkable. Blood glucose 124. CRP 1.2. Vital signs reviewed. Blood pressure 134/78, heart rate 63, respiratory rate 17, temp 98.0 F, and SpO2 of 98% on room air. CODE STATUS: Full code DVT prophylaxis: Heparin Anticipated discharge date: Pending clinical course Anticipated discharge place: Home Patient was seen independently by Nurse Practitioner. This document was prepared using [employer] dictation software. Please allow for errors in odd ticket clerk while rare they do occur. Objective - Vital Signs Vital signs: Vital Signs Temp 98 F 10/23/23 07:04 Pulse 63 10/23/23 08:00 Resp 17 10/23/23 07:04 BP 134/78 10/23/23 07:04 Pulse Ox 98 10/23/23 07:04 FiO2 Intake & Output 10/22/23 10/23/23 10/23/23 18:59 06:59 18:59 Intake Total 296 1198 236 Output Total 2 Balance 296 1196 236 Weight 56.699 kg 57.3 kg Intake: Oral 296 1198 236 Output: Urine 2 Other: # Voids 4 3 # Bowel Movements 0 - Labs CBC & Chem 7: 10/23/23 09:03 10/23/23 09:03 Labs: Abnormal Lab Results - Last 24 Hours (Table) 10/22/23 10/22/23 Range/Units 12:08 12:08 ESR 44 H (0-20) mm/Hr C-Reactive Protein 1.2 H (<1.0) mg/dL Microbiology - Last 24 Hours (Table) 10/22/23 11:50 Gram Stain - Preliminary Chest Wound Culture - Preliminary
[2023-10-23 14:14] VITALS: RESP 16
[2023-10-24 08:02] VITALS: BP 141/78; TEMP 98.1
--- NOTE | 2023-10-24 08:55 | P.PN ---
Subjective Progress Note Date: 10/24/23 Consult reason: chest pain History of present illness: This is a 58-year-old male with self-reported past medical history of 6 heart attacks, 7 cardiac stents, 100% left carotid stenosis, PAD, glaucoma. Patient was recently hospitalized found to have coronary artery disease status post coronary artery bypass grafting x 1, left internal thoracic artery (in-situ) to left anterior descending coronary artery on 09/[address] Dee. Patient states that he knew the wound was infected and he had pus leaking out and came back to the hospital for further evaluation. Patient was to have a follow-up visit with Dr. Adhikari in 1 week and unable to determine why this did not happen. He has had occasions in the past when he has not shown up for appointments. Blood pressure 132/82, heart rate is in the 60s, pulse ox 98% on room air, afebrile. EKG: Sinus rhythm with no acute ST-T wave changes Chest x-ray: No acute process Laboratory studies: WBC 13, hemoglobin 13.3. D-dimer 1.36. Sodium 140, potassium 4.1, creatinine 0.82. Troponin negative x 3. Home cardiac medications: Amiodarone 400 mg daily, aspirin 325 mg daily, atorvastatin 40 mg daily, Plavix 75 mg daily, losartan 50 mg at noon, Lopressor 50 mg twice daily. Echocardiogram performed on 09/10/2023 revealed preserved LV size and function with inferior basal and inferior septal akinesis. Thickened aortic valve leaflets without stenosis. Cardiac catheterization performed on 09/10/2023 revealed 80% mid LAD stenosis, 100% ostial RCA stenosis, prior stenting of the RCA with 100% in-stent stenosis, left to right collaterals filling PL branch, normal LVEDP. 10/22 Patient is seen and examined. He has been seen by infectious disease and pus was extracted from the wound and the wound culture sent. Patient was also started on vancomycin IV. Patient denies any new concerns today. Patient is afebrile, heart rate 64, blood pressure 134/78, pulse ox 98% on room air. WBC 9.8, hemoglobin 13.5. Sed rate was 44. C-reactive protein 1.2. CT of the chest revealed no bony destructive process to suggest osteomyelitis. There is a 8.8 mm fluid collection which could reveal flecked seroma. Infected collection is not excluded. There is retrosternal stranding noted which could be postsurgical in nature. Infection not excluded. Echocardiogram reveals normal LV systolic function. 10/23 Patient states he is feeling better, wound to his chest is improving. He has been maintained on IV vancomycin per Dr. Reynolds. Blood and wound cultures are in progress. Blood pressure 141/78, heart rate 60, pulse ox 95% on room air. Physical examination: Gen: This is a 58-year-old male in no acute distress VS: reviewed HEENT: Head is atraumatic, normocephalic. Pupils equal, round. Sclerae is anicteric. NECK: Supple. No JVD. LUNGS: Clear to auscultation. No wheezes or rhonchi. No intercostal ret ractions. HEART: Regular rate and rhythm. No murmur. ABDOMEN: Soft No tenderness. EXTREMITIES: No pedal edema. No calf tenderness. NEUROLOGICAL: Patient is awake, alert and oriented x3. Assessment: Atypical chest pain, most likely coming from sternal wound pain Sternal wound infection Recent CABG x 1 09/16 History of coronary artery disease with previous stenting History of carotid artery disease PAD in the bilateral lower extremities Hypertension Tobacco use and dependence History of medical noncompliance Plan: Continue patient's home cardiac medication Consult infectious disease appreciated Smoking cessation, patient will be given [employer] quit line information Thank you kindly for this consultation. Nurse practitioner note has been reviewed, I agree with documented findings and plan of care. Patient was seen and examined. Objective - Vital Signs Vital signs: Vital Signs Temp 98.1 F 10/24/23 07:25 Pulse 60 10/24/23 07:25 Resp 16 10/24/23 07:25 BP 141/78 10/24/23 07:25 Pulse Ox 95 10/24/23 07:25 FiO2 Intake & Output 10/23/23 10/24/23 10/24/23 18:59 06:59 18:59 Intake Total 354 354 Balance 354 354 Intake: Oral 354 354 Other: # Voids 2 1 - Labs CBC & Chem 7: 10/23/23 09:03 10/23/23 09:03 Labs: Abnormal Lab Results - Last 24 Hours (Table) 10/23/23 Range/Units 09:03 Glucose 124 H (74-99) mg/dL Microbiology - Last 24 Hours (Table) 10/22/23 11:50 Gram Stain - Preliminary Chest Wound Culture - Preliminary 10/22/23 12:08 Blood Culture - Preliminary Blood
[2023-10-24 09:34] VITALS: PULSE 73
--- NOTE | 2023-10-24 09:40 | P.DS ---
Providers Date of admission: 10/21/23 23:44 Expected date of discharge: 10/24/23 Attending physician: Juanis Mauro MD Consults: 10/21/23 23:43 Consult Physician Routine Consulting Provider: Lb Dee Consult Reason/Comments: known Do you want consulting provider notified?: Yes Consult Physician Routine Consulting Provider: Peri Guallpa Consult Reason/Comments: cp Do you want consulting provider notified?: Yes 10/22/23 07:40 Consult Physician Routine Consulting Provider: Bo Reynolds Consult Reason/Comments: wound infection Do you want consulting provider notified?: Yes Primary care physician: [facility] Hospital Course: Discharge Diagnosis: Drainage from midsternal incision concerning for infectious process. Wound culture showing no growth/no organisms seen to date after 48 hours. Blood cultures showing no growth to date. Cardiothoracic surgery team recommending discharge home on oral antibiotics and follow-up outpatient in their office. Discussed with infectious disease and per cardiothoracic surgery team's recommendations patient being discharged home on Keflex 1000 mg twice daily. Atypical chest pain, secondary to postsurgical pain. Status post CABG x 1 on 09/17/23 Continue cardiac medication regimen with aspirin 325 mg daily, atorvastatin 40 mg daily, Plavix 75 mg daily, losartan 50 mg daily, and metoprolol 50 mg twice daily. Patient reports he is no longer taking amiodarone, states was only taking for 2 weeks after surgery. Patient to follow-up outpatient with cardiothoracic surgery team. 30-day Prescriptions sent for all medications as patient reports needing refills on all. CAD Hypertension Hyperlipidemia Anxiety Hospital Course: Patient is a very pleasant 58-year-old male with a past medical history of CAD status post previous stenting and CABG x 1, hypertension, hyperlipidemia, anxiety, depression, and nicotine dependence. He recently underwent a CABG x 1 on 09/17/2023 and [facility]. Patient reports being discharged from rehab 2 weeks ago and has been living in a motel. He reports that he has been experiencing mild chest pain/discomfort over his incision site for the past 2 to 3 days and noticed some redness surrounding his incision site to his chest so he came to the emergency department for evaluation. Patient denies having any fevers, chills, headache, lightheadedness, dizziness, palpitations, shortness of breath, or experiencing any nausea, vomiting, or any other complaints at this time. He does report having a small amount of drainage noted from the top of his incision site. Upon arrival to our facility, patient underwent evaluation in the emergency department. Vital signs upon arrival show blood pressure 193/93, heart rate 67, respiratory rate 18, temp 97.5 F, and SpO2 of 99% on room air. EKG showing normal sinus rhythm at 63 bpm with no noted T wave or ST abnormalities showing no signs of acute ischemia upon personal review and interpretation. Chest x-ray negative for acute cardiopulmonary process. Labs completed and reviewed. CBC showing leukocytosis with WBC count of 13.0. Coagulation profile showing sligh tly elevated D-dimer of 1.36, expected finding with recent surgery and patient denies having any shortness of breath or palpitations only experiencing incisional pain. BMP showing high anion gap metabolic acidosis with chloride of 109, bicarb of 18, and anion gap of 13. Renal function unremarkable. Blood glucose 113. Magnesium 2.1. Troponin negative at less than 0.012. Patient admitted under our services with consultation to cardiology, cardiothoracic surgery, and infectious disease. Wound culture showing no growth/no organisms seen to date after 48 hours. Blood cultures showing no growth to date. Cardiothoracic surgery team recommending discharge home on oral antibiotics and follow-up outpatient in their office. Discussed with infectious disease and per cardiothoracic surgery team's recommendations patient being discharged home on Keflex 1000 mg twice daily. Physical exam: Vital signs reviewed and stable. General: Nontoxic, no distress and appears stated age. Derm: Skin warm and dry, normal coloration for ethnicity. Incision to midline chest/sternum with mild erythema. No active drainage noted at this time. Head: Atraumatic, normocephalic and symmetric. Eyes: EOMs intact, no lid lag, and anicteric sclera Mouth: no lip lesions, mucus membranes moist Cardiovascular: regular rate and rhythm with normal S1S2, no murmur, positive posterior tibial pulses bilaterally, and cap refill < 2 seconds. Lungs: Respirations even, regular, and unlabored on room air. Lungs CTA bilaterally, no rhonchi, no rales, no wheezing, and no accessory muscle usage. Abdominal: soft, nontender to palpation, no guarding, no appreciable organomegaly Ext: ROM intact. No gross muscle atrophy, no edema, no contractures Neuro: Speech clear, face symmetrical and CN II-XII grossly intact with no noted focal neuro deficits Psych: Alert and oriented to person, place, time, and situation. Appropriate and pleasant affect. A total of 35 minutes of time were spent preparing this complex discharge summary. Pt was discharged on 10/24/2023 at 9:11 AM. Patient was seen independently by Nurse Practitioner. This document was prepared using [employer] dictation software. Please allow for errors in healthcare receptionist while rare they do occur. Patient Condition at Discharge: Stable Plan - Discharge Summary Discharge Rx Participant: Yes New Discharge Prescriptions: New Cephalexin [Keflex] 1,000 mg PO Q12HR 10 Days #40 cap Continue Ipratropium-Albuterol Nebulize [Duoneb 0.5 mg-3 mg/3 ml Soln] 3 ml INHALATION RT-QID PRN PRN Reason: Shortness Of Breath Atorvastatin [Lipitor] 40 mg PO DAILY 30 Days #30 tab Clopidogrel [Plavix] 75 mg PO DAILY 30 Days #30 tab Pantoprazole [Protonix] 40 mg PO AC-BRKFST 30 Days #30 tab Aspirin 325 mg PO DAILY 30 Days #30 tab Losartan [Cozaar] 50 mg PO DAILY@1200 30 Days #30 tab Metoprolol Tartrate [Lopressor] 50 mg PO BID 30 Days #60 tab HYDROcodone/APAP 10-325MG [[place] 10-325] 1 tab PO Q6HR PRN #18 tab PRN Reason: Pain Discharge Medication List Ipratropium-Albuterol Nebulize [Duoneb 0.5 mg-3 mg/3 ml Soln] 3 ml INHALATION RT-QID PRN 10/22/23 [History] Aspirin 325 mg PO DAILY 30 Days #30 tab 10/24/23 [Rx] Atorvastatin [Lipitor] 40 mg PO DAILY 30 Days #30 tab 10/24/23 [Rx] Cephalexin [Keflex] 1,000 mg PO Q12HR 10 Days #40 cap 10/24/23 [Rx] Clopidogrel [Plavix] 75 mg PO DAILY 30 Days #30 tab 10/24/23 [Rx] HYDROcodone/APAP 10-325MG [[place] 10-325] 1 tab PO Q6HR PRN #18 tab 10/24/23 [Rx] Losartan [Cozaar] 50 mg PO DAILY@1200 30 Days #30 tab 10/24/23 [Rx] Metoprolol Tartrate [Lopressor] 50 mg PO BID 30 Days #60 tab 10/24/23 [Rx] Pantoprazole [Protonix] 40 mg PO AC-BRKFST 30 Days #30 tab 10/24/23 [Rx] Follow up Appointment(s)/Referral(s): Silvia Lee, ELVIN [Family Provider] - 1-2 days Lb Dee MD [STAFF PHYSICIAN] - (Patient seen in the hospital, no need for follow up visit at this time) [facility] Visiting Nurse, [NON-STAFF] - As Needed [facility]inic [Primary Care Provider] - 1 Week Patient Instructions/Handouts: Wound Infection (GEN), Surgical Site Infections (GEN), Wound Healing and Your Diet (DC) Activity/Diet/Wound Care/Special Instructions: DISCHARGE INSTRUCTIONS: 1. The patient should sleep in their own bed, no medical bed needed. 2. Stairs are not an issue. If the bedroom is upstairs, it is advised that the patient go up at night and down in the morning for the first week. Go slowly, using handrail and take 1 step at a time. 3. No lifting, pushing, or pulling more than 10 pounds for 12 weeks. The physician will advise of any restriction changes. 4. The patient is expected to continue the prescribed walking program. 5. Continue pain control per as needed orders. 6. Continue with incentive spirometry and splinting/heart hugger until otherwise directed by the physician. 7. Must shower daily using liquid antibacterial soap 8. Routine sternal incision care. No powders, lotions, ointments on incisions. No dressings are necessary on incisions unless they are draining. Dermabond tape is to remain on sternal incision until surgeon follow-up. 9. Please call surgeon/SHOE PLANNER for temp greater than 101 F or purulent drainage from incisions. 10. You should weigh yourself daily, record and bring log with you to follow up appointments. 11. You have been referred to and are expected to begin Cardiac Rehab in approximately 4-6 weeks. 12. Quitting smoking is the most important step you can take to improve your health. For additional information and assistance to quit smoking, please call the [employer] tobacco quit line (9-812-XEBL-NOW/ ) or online: [email or web address] HOME HEALTH SERVICES TO PROVIDE: RN SKILLED HOME CARE SERVICES FOR POST-OP SURGICAL PATIENTS WITH THE FOLLOWING: Coronary Artery Bypass Surgery (CABG), Mitral Valve Replacement/Repair ( MVR), Aortic Valve Replacement/Repair (AVR) RN TO CONTINUE EDUCATION FROM ``ROAD TO A HEALTH HEART PATIENT EDUCATION MANUAL (GIVEN TO PATIENT IN THE HOSPITAL) MEDICATION RECONCILIATION WITH EDUCATION NEEDED ON FIRST HOME VISIT EMPHASIZE IMPORTANCE OF WEARING BREAST SUPPORT/HEART HUGGER ENCOURAGE USE OF INCENTIVE SPIROMETER 10 X EVERY HOUR WHILE AWAKE ENCOURAGE UTILIZATION OF LOWER EXTREMITY COMPRESSION STOCKINGS/RYLEE HOSE and ELEVATE LEGS ABOVE LEVEL OF HEART WHILE AT REST. ENCOURAGE AMBULATION 3-5x/day INCREASING TOLERATES, WHILE AVOIDING EXTREMES IN TEMPERATURE FREQUENCY: RN TO OPEN THE PATIENT WITHIN 24 HOURS OF DISCHARGE FROM THE HOSPITAL WITH TELEHEALTH INSTALLED AT [facility] [place], RN TO VISIT 2-3 X A WEEK FOR 4 WEEKS ESTABLISHED BY PATIENT NEEDS. LABORATORY: CBC, CMP TO BE DRAWN ON THE THIRD DAY HOME, (RAN STAT) FAX RESULTS TO [phone]. TELEHEALTH PARAMETERS: WEIGHT: NOTIFY MD OF WEIGHT GAIN OF 2 LBS IN 24 HOURS OR 5 LBS IN ONE WEEK HR: NOTIFY MD OF HR <55 BPM OR HR>100 BPM BP: NOTIFY MD IF BP <90/55 OR BP>140/100 O2 SAT: NOTIFY MD IF PO2<93% ON ROOM AIR SEND TELEHEALTH REPORT TO [facility] OPERATOR AND CARDIOVASCULAR SURGEON THE FIRST WEEK OF CARE AND THEN BI-WEEKLY. PLEASE ADDITIONALLY COMMUNICATE ANY ABNORMALS AND NEW FINDINGS TO THE SURGEONS OFFICE. Discharge Disposition: HOME WITH HOME HEALTH SERVICES
[2023-10-24] MEDS ORDERED: VANCOMYCIN TROUGH DUE 1 EACH MISC MISCELLANE ONE (12:00)
--- NOTE | 2023-10-24 13:51 | P.PN ---
Subjective Progress Note Date: 10/23/23 Principal diagnosis: Reason for follow-up is chest wall cellulitis Patient is a 58-year-old male with a past medical history significant for hypertension hyperlipidemia MS coronary artery disease in this patient who is status post single-vessel off-pump coronary bypass grafting on September 17, 2023 presented to the hospital with pain swelling redness and drainage from the upper end of the sternal incision. On today's evaluation that is 10/23/2023, Patient is afebrile patient is currently on room air and denies having any shortness of breath, the patient pain and drainage To the upper end of sternal Incision has decreased or cough, the patient denies any nausea vomiting did not have any abdominal pain and no diarrhea. Patient white count normalized to 9.8 he did have a sed rate of 44 creatinine 0.77 CRP is 1.2 cultures currently pending did have a CT of the chest done by CT surgery no bony destruction process there is a fluid collection retrosternal stranding noted Objective - Vital Signs Vital signs: Vital Signs Temp 98 F 10/23/23 07:04 Pulse 64 10/23/23 09:33 Resp 17 10/23/23 07:04 BP 134/78 10/23/23 07:04 Pulse Ox 96 10/23/23 09:21 FiO2 Intake & Output 10/22/23 10/23/23 10/23/23 18:59 06:59 18:59 Intake Total 296 1198 236 Output Total 2 Balance 296 1196 236 Weight 56.699 kg 57.3 kg Intake: Oral 296 1198 236 Output: Urine 2 Other: # Voids 4 3 # Bowel Movements 0 - Exam GENERAL DESCRIPTION: Middle-age male lying in bed in no distress RESPIRATORY SYSTEM: Unlabored breathing , decreased breath sounds at bases HEART: S1 S2 regular rate and rhythm , upper end of the sternal incision swelling redness slightly decreased no drainage ABDOMEN: Soft , no tenderness EXTREMITIES: No edema feet - Labs CBC & Chem 7: 10/23/23 09:03 10/23/23 09:03 Labs: Abnormal Lab Results - Last 24 Hours (Table) 10/22/23 10/22/23 10/23/23 Range/Units 12:08 12:08 09:03 ESR 44 H (0-20) mm/Hr Glucose 124 H (74-99) mg/dL C-Reactive Protein 1.2 H (<1.0) mg/dL Microbiology - Last 24 Hours (Table) 10/22/23 11:50 Gram Stain - Preliminary Chest Wound Culture - Preliminary Assessment and Plan (1) Incisional infection Status: Acute Code(s): T81.49XA - INFECTION FOLLOWING A PROCEDURE, OTHER SURGICAL SITE, INIT SNOMED Code(s): 06861400 (2) Cellulitis of chest wall Status: Acute Code(s): L03.313 - CELLULITIS OF CHEST WALL SNOMED Code(s): 77228960 (3) Abscess or cellulitis of chest wall Status: Acute Code(s): NNN3639 - SNOMED Code(s): 299965147 Plan: 1patient presented to hospital with pain to the point of sternal incision in addition to the drainage he did have erythema also have elevated white count CT did shows abnormality with the fluid collection that was easily expressed out by gentle pressure and culture has been obtained likely from gram-positive skin amador such as Staph aureus and will need to cover for MRSA pending culture finalization 2-blood and local cultures currently pending patient did have elevated sed rate of [address] of the chest which shows a fluid collection and re trosternal stranding CT apparently has been reviewed by CT surgery still recommended the patient to be discharged on oral Keflex 3-I will continue patient on vancomycin pharmacy to dose target trough of 15 while watching kidney function and Vanco trough closely pending culture finalization Dictation was produced using [employer] dictation software. please excuse any grammatical, word or spelling errors. Time with Patient: Less than 30
== END 2023-10-24 11:53 | disposition home health service (06) ==
LOC: EC 22:31 → 6NMEDSUR 23:44
PROVIDERS: ADMIT Internal Medicine; ATTEND Internal Medicine
DX: R07.89 Other chest pain (principal); I25.10 Atherosclerotic heart disease of native coronary artery without angina pectoris; E78.5 Hyperlipidemia, unspecified; I10 Essential (primary) hypertension; I25.2 Old myocardial infarction; F41.9 Anxiety disorder, unspecified; F17.200 Nicotine dependence, unspecified, uncomplicated; E87.20 Acidosis, unspecified; F32.A Depression, unspecified; Z95.5 Presence of coronary angioplasty implant and graft; Z79.02 Long term (current) use of antithrombotics/antiplatelets; Z79.82 Long term (current) use of aspirin; Z95.1 Presence of aortocoronary bypass graft; Z79.899 Other long term (current) drug therapy; Z91.199 Patient's noncompliance with other medical treatment and regimen due to unspecified reason; Z82.5 Family history of asthma and other chronic lower respiratory diseases
CPT/HCPCS: 36415; 71045; 71250; 80048; 80053; 80061; 83690; 83735; 84484; 85025; 85379; 85610; 85652; 85730; 86140; 87040; 87070; 87205; 93005; 93306; 94640; 94760; 96365; 96366; 96367; 96372; 99285

== ENCOUNTER 2024-02-09 11:17 | Inpatient (IN) | payer OTHER, MEDICARE ==
--- NOTE | 2024-02-09 11:43 | ED ---
Chest Pain HPI - General Chief Complaint: Chest Pain Stated Complaint: post op infection Time Seen by Provider: 02/09/24 11:32 Source: patient, RN notes reviewed Mode of arrival: ambulatory Limitations: no limitations - History of Present Illness Initial Comments: This is a 59-year-old male with history of CAD, AMI with 4 stents and hypertension presenting with chest pain x 2 days. Patient endorses having open heart surgery with CABG in August 2023 with ongoing surgical site pain. Patient states he seen the surgeon several times regarding this where they expressed minimal concern. Patient endorses recently caring heavy pallet of water for symptoms started. Patient states chest pain is centralized and sharp without radiation, shortness of breath, dizziness, sweating, pallor, presyncope. Patient states pain is constant but worsens with movement, coughing and sneezing. Patient also endorses lower extremity pain when walking for extended periods and 80% occlusion of lower extremity vasculature already known. Patient states he recently restarted smoking 2 weeks ago. Patient denies fever, chills, abdominal pain, N/V/D. MD Complaint: chest pain Onset/Timin -: days(s) Onset: during exertion Pain Location: substernal Pain Radiation: none Severity: moderate Quality: sharp Consistency: constant Worsens With: inspiration, palpation, movement Context: recent surgery - Related Data Home Medications Medication Instructions Recorded Confirmed Amiodarone [Cordarone] 200 mg PO DAILY 02/09/24 02/09/24 Escitalopram [Lexapro] 10 mg PO DAILY 02/09/24 02/09/24 Mv-Min/Folic/K1/Lycopen/Lutein 1 tab PO DAILY 02/09/24 02/09/24 [Centrum Silver Men Tablet] Previous Rx's Medication Instructions Recorded Atorvastatin [Lipitor] 40 mg PO DAILY 30 Days #30 tab 10/24/23 Clopidogrel [Plavix] 75 mg PO DAILY 30 Days #30 tab 10/24/23 Losartan [Cozaar] 50 mg PO DAILY@1200 30 Days #30 tab 10/24/23 Metoprolol Tartrate [Lopressor] 50 mg PO BID 30 Days #60 tab 10/24/23 Pantoprazole [Protonix] 40 mg PO AC-BRKFST 30 Days #30 tab 10/24/23 Allergies Allergy/AdvReac Type Severity Reaction Status Date / Time sulfamethoxazole Allergy Rash/Hives Verified 02/09/24 13:32 [From Bactrim] trimethoprim [From Bactrim] Allergy Rash/Hives Verified 02/09/24 13:32 Review of Systems ROS Statement: Those systems with pertinent positive or pertinent negative responses have been documented in the HPI. ROS Other: All systems not noted in ROS Statement are negative. Past Medical History Past Medical History: Coronary Artery Disease (CAD), Chest Pain / Angina, Hyperlipidemia, Hypertension, Myocardial Infarction ([place]) Additional Past Medical History / Comment(s): PT states he ahs 7 cardiac stents. Pt states he lost his card. Last Myocardial Infarction Date:: 2016 History of Any Multi-Drug Resistant Organisms: None Reported Past Surgical History: Coronary Bypass/CABG, Heart Catheterization With Stent Additional Past Surgical History / Comment(s): Single-vessel off-pump CABG September 17, 2023 Past Anesthesia/Blood Transfusion Reactions: No Reported Reaction Date of Last Stent Placement:: 2016 Past Psychological History: Anxiety, Depression Smoking Status: Former smoker Past Alcohol Use History: Abuse Past Drug Use History: Marijuana - Past Family History Father Family Medical History: Coronary Artery Disease (CAD), Myocardial Infarction ([place]) Additional Family Medical History / Comment(s): from myocardial infarction in his 40s Mother Family Medical History: COPD Additional Family Medical History / Comment(s): from COPD in her 70s Brother(s) Family Medical History: Coronary Artery Disease (CAD) Additional Family Medical History / Comment(s): Had CABG at a young age General Exam Limitations: no limitations General appearance: alert, in no apparent distress Head exam: Present: atraumatic, normocephalic, normal inspection Eye exam: Present: normal appearance, PERRL, EOMI. Absent: scleral icterus, conjunctival injection, periorbital swelling ENT exam: Present: normal exam, mucous membranes moist Neck exam: Present: normal inspection. Absent: tenderness, meningismus, lymphadenopathy Respiratory exam: Present: normal lung sounds bilaterally, wheezes, rhonchi, ch est wall tenderness (Positive mid and parasternal pain and tenderness especially left parasternal around third rib superior and medial to nipple. Incision scar has surrounding erythema with solitary pustule noted on inferior aspect with some discharge. Minimal tenderness or warmth of erythematous region). Absent: respiratory distress, rales, stridor, accessory muscle use, decreased breath sounds Cardiovascular Exam: Present: regular rate, normal rhythm, normal heart sounds. Absent: systolic murmur, diastolic murmur, rubs, gallop, clicks GI/Abdominal exam: Present: soft, normal bowel sounds. Absent: distended, tenderness, guarding, rebound, rigid Extremities exam: Present: normal inspection, full ROM, normal capillary refill, other (Negative BLE edema or Homans' sign). Absent: tenderness, pedal edema, joint swelling, calf tenderness Back exam: Present: normal inspection Neurological exam: Present: alert, oriented X3, CN II-XII intact Psychiatric exam: Present: normal affect, normal mood Skin exam: Present: warm, dry, intact, normal color. Absent: rash Course Vital Signs 02/09/24 02/09/24 11:19 11:47 Temperature 98 F 98.8 F Pulse Rate 116 H 89 Respiratory 20 18 Rate Blood Pressure 117/74 117/74 O2 Sat by Pulse 98 96 Oximetry Chest Pain MDM - MDM Was pt. sent in by a medical professional or institution (, PA, [employer], urgent care, hospital, or fci...) When possible be specific @ -No Did you speak to anyone other than the patient for history (EMS, parent, family, police, friend...)? What history was obtained from this source @ -No Did you review nursing and triage notes (agree or disagree)? Why? @ -I reviewed and agree with nursing and triage notes Were old charts reviewed (outside hosp., previous admission, EMS record, old EKG, old radiological studies, urgent care reports/EKG's, fci records)? Report findings @ -Reviewed charts regarding patient's open heart surgery and CABG in August 2023. Differential Diagnosis (chest pain, altered mental status, abdominal pain women, abdominal pain men, vaginal bleeding, weakness, fever, dyspnea, syncope, head ache, dizziness, GI bleed, back pain, seizure, CVA, palpatations, mental health, musculoskeletal)? @ -Differential Chest Pain: Stable Angina, Unstable Angina, STEMI, NSTEMI Aortic Dissection, Pneumothorax, Musculoskeletal, Esophageal Spasm GERD, Cholecystitis, Pancreatitis, Zoster, this is not meant to be an all-inclusive list. EKG interpreted by me (3pts min.). @ -Sinus tachycardia inferior lead Q waves. No ST changes or T wave inversion. Ventricular rate 100 bpm, [place] 141 ms, QRS duration 111 ms, QTc 392 ms. X-rays interpreted by me (1pt min.). @ -Chest x-ray revealed indications of prior surgery but otherwise no cardiomegaly, focal infiltrates, pulmonary edema, blunting of costophrenic angle or pneumothorax. CT interpreted by me (1pt min.). @ -None done U/S interpreted by me (1pt. min.). @ -None done What testing was considered but not performed or refused? (CT, X-rays, U/S, labs)? Why? @ -None What meds were considered but not given or refused? Why? @ -Considered IV antibiotics for possible incision site infection due to elevated white count and noted pustule. Due to patient not meeting SIRS criteria, having no constitutional symptoms and no significant warmth or tenderness over erythematous aspect of medial chest, chose to hold on antibiotics at this time. Did you discuss the management of the patient with other professionals (professionals i.e. , PA, [employer], lab, RT, psych nurse, manager social work, ecological economist, teacher, student officer, caser up)? Give summary @ -Discussed patient's HPI and physical exam with Dr. Stallings [facility] who agreed to admit patient for observation. Was smoking cessation discussed for >3mins.? @ -No Was critical care preformed (if so, how long)? @ -No Were there social determinants of health that impacted care today? How? (Homelessness, low income, unemployed, alcoholism, drug addiction, transportation, low edu. Level, literacy, decrease access to med. care, [facility], rehab)? @ -No Was there de-escalation of care discussed even if they declined (Discuss DNR or withdrawal of care, Hospice)? DNR status @ -No What co-morbidities impacted this encounter? (DM, HTN, Smoking, COPD, CAD, Cancer, CVA, ARF, Chemo, Hep., AIDS, mental health diagnosis, sleep apnea, morbid obesity)? @ -Hypertension, smoking, CAD, prior AMI, prior stents and CABG Was patient admitted / discharged? Hospital course, mention meds given and route, prescriptions, significant lab abnormalities, going to OR and other pertinent info. @ -Admitted to observation. Patient's EKG showed no acute ST or T wave changes and troponin was negative. Lab work shows elevated white count of 16 but otherwise unremarkable. Wound culture from pustule ordered. IV Toradol provided to patient for chest wall pain. Spoke to Dr. Vail who agreed to have patient admitted to observation. Undiagnosed new problem with uncertain prognosis? @ -No Drug Therapy requiring intensive monitoring for toxicity (Heparin, Nitro, Insulin, Cardizem)? @ -No Were any procedures done? @ -No Diagnosis/symptom? @ -Chest pain, surgical site pain Acute, or Chronic, or Acute on Chronic? @ -Acute Uncomplicated (without systemic symptoms) or Complicated (systemic symptoms)? @ -Complicated Side effects of treatment? @ -No Exacerbation, Progression, or Severe Exacerbation? @ -Exacerbation Poses a threat to life or bodily function? How? (Chest pain, [place], [place], pneumonia, PE, COPD, DKA, ARF, appy, cholecystitis, CVA, Diverticulitis, Homicidal, Suicidal, threat to staff... and all critical care pts) @ -No Disposition Clinical Impression: Costochondritis, Incisional infection Disposition: ADMITTED IP TO THIS HOSP Condition: Good Is patient prescribed a controlled substance at d/c from ED?: No Time of Disposition: 12:58 Decision Date: 02/09/24 Decision Time: 12:58
[2024-02-09 12:00] LABS: Anisocytosis Slight; Basophils # (A) 0.1 k/uL (0-0.2); Basophils % (A) 0 %; Eosinophils # (A) 0.2 k/uL (0-0.7); Eosinophils % (A) 1 %; HCT 44.9 % (39.0-53.0); HGB 14.9 gm/dL (13.0-17.5); Lymphocytes # (A) 0.9 k/uL (1.0-4.8); Lymphocytes % (A) 6 %; MCH 28.7 pg (25.0-35.0); MCV 86.9 fL (80.0-100.0); Mean Platelet Volume 7.9; Monocytes # (A) 0.8 k/uL (0-1.0); Monocytes % (A) 5 %; Neutrophils # (A) 14.1 k/uL (1.3-7.7); Neutrophils % (A) 87 %; Platelet Count 229 k/uL (150-450); RBC 5.17 m/uL (4.30-5.90); RDW 16.4 % (11.5-15.5); WBC 16.1 k/uL (3.8-10.6)
--- NOTE | 2024-02-09 12:00 | XR ---
EXAMINATION TYPE: XR chest 2V DATE OF EXAM: 02/09/2024 COMPARISON: 10/21/2023 HISTORY: Chest pain TECHNIQUE: Frontal and lateral views of the chest are obtained. FINDINGS: Prior CABG surgery. The heart and pulmonary vascularity are normal. The lungs are clear and there is no consolidation or abnormal interstitial density. There is no pleural effusion or pneumothorax. The osseous structures are intact. IMPRESSION: No acute cardiopulmonary disease. [facility], , 02/09/2024 11:58 AM
[2024-02-09 12:07] LABS: ALT 15 U/L (4-49); AST 20 U/L (17-59); African American GFR (CKD) >90 (>60 ml/min/1.73 sqM); Albumin 4.2 g/dL (3.5-5.0); Alkaline Phosphatase 83 U/L (38-126); Anion Gap 7 mmol/L; Blood Urea Nitrogen 12 mg/dL (9-20); Calcium 9.1 mg/dL (8.4-10.2); Carbon Dioxide 26 mmol/L (22-30); Chloride 104 mmol/L (98-107); Glucose 121 mg/dL (74-99); Magnesium 1.7 mg/dL (1.6-2.3); Non-African American GFR(CKD) >90 (>60 ml/min/1.73 sqM); Potassium 4.1 mmol/L (3.5-5.1); Sodium 137 mmol/L (137-145); Total Bilirubin 0.6 mg/dL (0.2-1.3); Total Protein 6.7 g/dL (6.3-8.2)
[2024-02-09 12:08] LABS: INR 1.1 (<1.2); Partial Thromboplastin Time 28.4 sec (22.0-30.0); Prothrombin Time 11.9 sec (10.0-12.5)
[2024-02-09] MEDS ORDERED: KETOROLAC 15 MG/ML 1 ML VIAL IVP PRN (12:54)
[2024-02-09] MEDS ORDERED: NALOXONE 0.4 MG/ML 1 ML VIAL IV PRN (12:54)
[2024-02-09] MEDS ORDERED: IPRATROPIUM-ALBUTEROL 3 ML NEB INHALATION PRN (12:57)
[2024-02-09] MEDS: KETOROLAC 15 MG/ML 1 ML VIAL IVP STA (13:54)
[2024-02-09] MEDS ORDERED: HYDROcodone/APAP 5-325MG 1 EACH TAB PO PRN (15:44)
[2024-02-09] MEDS ORDERED: MORPHINE SULFATE 4 MG/ML SYRINGE IV PRN (15:44)
[2024-02-09] MEDS ORDERED: SODIUM CHLORIDE 0.9% 1,000 ML IV ONE (15:45)
[2024-02-09] MEDS ORDERED: VANCOMYCIN IV PER PHARMACY 1 EACH MISC MISCELLANE PRN (16:19)
[2024-02-09] MEDS ORDERED: RX INFO: IV CONTRAST WAS GIVEN 1 EACH MISC MISCELLANE PRN (16:20)
--- NOTE | 2024-02-09 16:57 | CT ---
EXAMINATION TYPE: CT chest w con DATE OF EXAM: 02/09/2024 4:46 PM COMPARISON: CT chest 10/19/2023. CLINICAL INDICATION: Male, 59 years old with history of r/o abscess to incision site; PHH, Chest pain x 2 days, CABG x 4 months ago TECHNIQUE: Multiple axial images were obtained through the chest. Sagittal and coronal reformats were created for review. MIP was performed on a separate workstation. Contrast used:100 ml mL of Isovue 300 with IV Contrast (None if empty) Oral contrast used: (None if empty) CT DLP: 237 mGycm, Automated exposure control for dose reduction was used. FINDINGS: LUNGS/ PLEURA: No focal consolidation, pneumothorax or pleural effusion. Posterior atelectasis change s in the right lung base. Accessory fissure of the left lung. AIRWAY: Patent and unremarkable. HEART: Heart is mildly enlarged for size with posttreatment changes to the coronary arteries. MEDIASTINUM: No gross evidence of adenopathy. VASCULATURE: No aortic aneurysm. MUSCULOSKELETAL: No acute osseous abnormalities, sternotomy wires in place. SOFT TISSUES/LYMPH NODES: Unremarkable. LOWER NECK: No significant findings. UPPER ABDOMEN: No definitive organizing fluid collection visualized on CT imaging along the incision site. Phlegmonous change present present with fat stranding changes. There is some streaky artifact d ue to sternotomy wires. No pericardial effusion. IMPRESSION: No definitive organizing fluid collection along the incision site on CT imaging. If there remains con cern consider targeted ultrasound imaging. Phlegmonous change present. [facility], , 02/09/2024 4:55 PM
--- NOTE | 2024-02-09 17:08 | P.HPIM ---
History of Present Illness H&P Date: 02/09/24 History of Presenting Illness: Patient is a very pleasant 59-year-old male with a past medical history of CAD status post previous stenting and CABG x 1 on 08/31/23, hypertension, hyperlipidemia, anxiety, depression, nicotine and previous alcohol dependence c urrently living at clean living facility. He presented to the emergency department with a chief complaint of chest pain. Patient reports midsternal chest pain somewhat ongoing since completion of CABG in August but states it has significantly worsened over the past 2 to 3 days and accompanied by with newly developed mid incisional drainage of thick purulent fluid and surrounding erythema. Patient reports previous infection at same site that was treated with IV antibiotics and he believed fully resolved. He reports abscess returned in same location about 2 to 3 days ago and accompanied by worsening midsternal chest pain that is reproducible and described as sharp and persistent. He denies having any radiation of pain and denies any associated symptoms including fevers, chills, diaphoresis, palpitations, shortness of breath, cough or congestion, nausea, vomiting, or experiencing any num bness/tingling/weakness/swelling in his extremities. Upon arrival to our facility, patient underwent evaluation in the emergency department. Vital signs upon arrival show blood pressure 117/74, heart rate 116, respiratory rate 20, temp 98.0 F, and SpO2 of 98% on room air. EKG completed showing sinus tachycardia at 100 bpm with T wave inversion in inferior and lateral leads II, III, aVF, and V5 and V6. T wave inversion is a new finding when compared to EKG completed 10/22/2023 upon personal review, interpretation, and comparison. Chest x-ray completed negative for acute cardiopulmonary process. Labs completed and reviewed. CBC showing leukocytosis with WBC count of 16.1. Coagulation profile normal findings. BMP unremarkable. Blood glucose 121. Magnesium slightly low at 1.7. Liver profile unremarkable. Troponin was negative at less than 0.012. Patient admitted under our services with consultation to infectious disease, cardiothoracic surgery and cardiology. Review of systems: Pertinent positives and negatives as discussed in HPI, a complete review of systems was performed and all other systems are negative. Physical exam: Vital signs reviewed and stable. General: Nontoxic, no distress and appears stated age. Derm: Skin warm and dry, normal coloration for ethnicity. Head: Atraumatic, normocephalic and symmetric. Eyes: EOM's intact, no lid lag, and anicteric sclera Mouth: no lip lesions, mucus membranes moist Cardiovascular: regular rate and rhythm with normal S1S2, no murmur, positive posterior tibial pulses bilaterally, and cap refill < 2 seconds. Sternal scar appears to be healing well with the exception of area of small abscess just right of midsternal scar with purulent drainage and surrounding erythema. Lungs: Respirations even, regular, and unlabored on room air. Lungs CTA bilaterally, no rhonchi, no rales, no wheezing, and no accessory muscle usage. Abdominal: soft, nontender to palpation, no guarding, no appreciable organomegaly Ext: ROM intact. No gross muscle atrophy, no edema, no contractures Neuro: Speech clear, face symmetrical and CN II-XII grossly intact with no noted focal neuro deficits Psych: Alert and oriented to person, place, time, and situation. Appropriate and pleasant affect. Assessment and Plan of Care: Abscess with purulent drainage from midsternal incision site Atypical chest pain, reducible and suspect secondary to above however patient does have newly noted EKG changes in inferior/lateral leads Sepsis upon admission, secondary to above Status post CABG x 1 on 09/17/23 CAD with previous stenting Hypertension Hyperlipidemia -Wound cultures and blood cultures ordered at this time. -Order placed for ESR and CRP -CT chest with contrast -Patient started on IV antibiotics with vancomycin 1000 mg every 8 hours. Will monitor renal function and vancomycin trough closely for any signs of vancomycin associated renal toxicity. -Infectious disease consulted and discussed case in detail with infectious disease physician, Dr. Reynolds. -Cardiology consulted s/t reports of chest pain and EKG changes, appreciate recommendations. -Cardiothoracic surgery consulted, discussed with Cardi[facility]oracic [facility] RELATIONS DIRECTOR -Troponins to be trended. -Telemetry monitoring. -Continue cardiac medication regimen with aspirin 81 mg daily, atorvastatin 40 mg daily, Plavix 75 mg daily, losartan 50 mg daily, amiodarone 200 mg daily, and metoprolol 50 mg twice daily. Anxiety and depression -Continue daily medication regimen with Lexapro 10 mg daily. Nicotine dependence -Strongly recommend smoking cessation. Patient reports he did quit but restarted 2 weeks ago. Order placed for nicotine patch 14 mg daily. Data and imaging reviewed: As stated above in HPI. CODE STATUS: Full code DVT prophylaxis: Heparin Anticipated discharge date: Pending clinical course Anticipated discharge place: Home Patient was seen independently by Nurse Practitioner. This document was prepared using [employer] dictation software. Please allow for errors in senior net engineer while rare they do occur. Geoff Guevara NP rendered care for this patient independently, reviewed the findings and plan as documented in the note above and agree with plan. I did not physically speak with or examine the patient on this date. Past Medical History Past Medical History: Coronary Artery Disease (CAD), Chest Pain / Angina, Hyperlipidemia, Hypertension, Myocardial Infarction ([place]) Additional Past Medical History / Comment(s): PT states he ahs 7 cardiac stents. Pt states he lost his card. Last Myocardial Infarction Date:: 2016 History of Any Multi-Drug Resistant Organisms: None Reported Past Surgical History: Coronary Bypass/CABG, Heart Catheterization With Stent Additional Past Surgical History / Comment(s): Single-vessel off-pump CABG September 17, 2023 Past Anesthesia/Blood Transfusion Reactions: No Reported Reaction Date of Last Stent Placement:: 2016 Past Psychological History: Anxiety, Depression Smoking Status: Former smoker Past Alcohol Use History: Abuse Past Drug Use History: Marijuana - Past Family History Father Family Medical History: Coronary Artery Disease (CAD), Myocardial Infarction ([place]) Additional Family Medical History / Comment(s): from myocardial infarction in his 40s Mother Family Medical History: COPD Additional Family Medical History / Comment(s): from COPD in her 70s Brother(s) Family Medical History: Coronary Artery Disease (CAD) Additional Family Medical History / Comment(s): Had CABG at a young age Medications and Allergies Home Medications Medication Instructions Recorded Confirmed Type Atorvastatin [Lipitor] 40 mg PO DAILY 30 Days #30 tab 10/24/23 02/09/24 Rx Clopidogrel [Plavix] 75 mg PO DAILY 30 Days #30 tab 10/24/23 02/09/24 Rx Losartan [Cozaar] 50 mg PO DAILY@1200 30 Days #30 tab 10/24/23 02/09/24 Rx Metoprolol Tartrate [Lopressor] 50 mg PO BID 30 Days #60 tab 10/24/23 02/09/24 Rx Pantoprazole [Protonix] 40 mg PO AC-BRKFST 30 Days #30 tab 10/24/23 02/09/24 Rx Amiodarone [Cordarone] 200 mg PO DAILY 02/09/24 02/09/24 History Escitalopram [Lexapro] 10 mg PO DAILY 02/09/24 02/09/24 History Mv-Min/Folic/K1/Lycopen/Lutein 1 tab PO DAILY 02/09/24 02/09/24 History [Centrum Silver Men Tablet] Allergies Allergy/AdvReac Type Severity Reaction Status Date / Time sulfamethoxazole Allergy Rash/Hives Verified 02/09/24 13:32 [From Bactrim] trimethoprim [From Bactrim] Allergy Rash/Hives Verified 02/09/24 13:32 Physical Exam Vitals: Vital Signs Temp Pulse Resp BP Pulse Ox 02/09/24 13:59 98 18 117/80 96 02/09/24 11:47 98.8 F 89 18 117/74 96 02/09/24 11:19 98 F 116 H 20 117/74 98 Intake and Output 02/09/24 02/09/24 02/09/24 06:59 14:59 22:59 Other: Weight 58.967 kg Results CBC & Chem 7: 02/09/24 11:44 02/09/24 11:44 Labs: Abnormal Lab Results - Last 24 Hours (Table) 02/09/24 02/09/24 Range/Units 11:44 11:44 WBC 16.1 H (3.8-10.6) k/uL RDW 16.4 H (11.5-15.5) % Neutrophils # 14.1 H (1.3-7.7) k/uL Lymphocytes # 0.9 L (1.0-4.8) k/uL Glucose 121 H (74-99) mg/dL
[2024-02-09] MEDS: HYDROcodone/APAP 10-325MG 1 EACH TAB PO PRN (17:25)
[2024-02-09] MEDS: VANCOMYCIN 1,000 MG in SODIUM CHLORIDE 0.9% 250 ML IVPB SCH (17:27)
[2024-02-09] MEDS: NICOTINE 14MG/24HR PATCH TRANSDERM SCH (17:27)
[2024-02-09] MEDS: MAGNESIUM SULFATE-D5W PMX 1 GM in DEXTROSE/WATER 1 100ML.BAG IVPB SCH (17:37)
[2024-02-09] MEDS: ACETAMINOPHEN TAB 325 MG TAB PO PRN (18:52)
[2024-02-09] MEDS: KETOROLAC 15 MG/ML 1 ML VIAL IVP PRN (20:28)
[2024-02-09] MEDS: METOPROLOL TARTRATE 50 MG TAB PO SCH (20:29)
[2024-02-09] MEDS ORDERED: CEPHALEXIN 500 MG CAP PO SCH (21:00)
--- NOTE | 2024-02-09 21:55 | P.CONS ---
History of Present Illness - Reason for Consult Consult date: 02/09/24 CABG midsternal incision and drainage Requesting physician: Geoff Guevara - Chief Complaint Chest wall swelling redness and drainage x 3 days - History of Present Illness Patient is a 59-year-old male with a past medical history negative for hypertension hyperlipidemia [place] coronary artery disease in this patient who is status post single-vessel off-pump CABG on September 17, 2023, patient subsequently was admitted to the hospital on 10/21/2023 and there was concern for some drainage from the lower end of the incision which was cultured those were negative he was treated with IV Vanco subsequently discharged on oral Keflex and the patient mention he did have overall healing of that area patient now presenting back to the hospital concerning for increasing swelling and redness to the lower end of the sternal incision that apparently was getting worse for the last 2 to 3 days patient been complaining of pain to be sharp, moderate intensity without any radiation to the head something purulent drainage patient did have some chills and did spike a temperature of 102 F this evening patient was also tachycardic but not hypotensive or hypoxic and did have elevated white count 16.1 with a left shift kidney function has been normal electrolytes are normal liver isms are normal patient was started on vancomycin infectious disease was consulted for further management of antibiotic therapy Review of Systems Positive point and negatives has been mentioned in the HPI, complete review of systems was performed and all other systems are negative Past Medical History Past Medical History: Coronary Artery Disease (CAD), Chest Pain / Angina, Hyperlipidemia, Hypertension, Myocardial Infarction ([place]) Additional Past Medical History / Comment(s): PT states he ahs 7 cardiac stents. Pt states he lost his card. ETOH (sober since August 2023) Last Myocardial Infarction Date:: 2016 History of Any Multi-Drug Resistant Organisms: None Reported Past Surgical History: Coronary Bypass/CABG, Heart Catheterization With Stent Additional Past Surgical History / Comment(s): Single-vessel off-pump CABG September 17, 2023 Past Anesthesia/Blood Transfusion Reactions: No Reported Reaction Date of Last Stent Placement:: 2016 Past Psychological History: Anxiety, Depression Smoking Status: Former smoker Past Alcohol Use History: Abuse Past Drug Use History: Marijuana - Past Family History Father Family Medical History: Coronary Artery Disease (CAD), Myocardial Infarction ([place]) Additional Family Medical History / Comment(s): from myocardial infarction in his 40s Mother Family Medical History: COPD Additional Family Medical History / Comment(s): from COPD in her 70s Brother(s) Family Medical History: Coronary Artery Disease (CAD) Additional Family Medical History / Comment(s): Had CABG at a young age Medications and Allergies Home Medications Medication Instructions Recorded Confirmed Type Atorvastatin [Lipitor] 40 mg PO DAILY 30 Days #30 tab 10/24/23 02/09/24 Rx Clopidogrel [Plavix] 75 mg PO DAILY 30 Days #30 tab 10/24/23 02/09/24 Rx Losartan [Cozaar] 50 mg PO DAILY@1200 30 Days #30 tab 10/24/23 02/09/24 Rx Metoprolol Tartrate [Lopressor] 50 mg PO BID 30 Days #60 tab 10/24/23 02/09/24 Rx Pantoprazole [Protonix] 40 mg PO AC-BRKFST 30 Days #30 tab 10/24/23 02/09/24 Rx Amiodarone [Cordarone] 200 mg PO DAILY 02/09/24 02/09/24 History Escitalopram [Lexapro] 10 mg PO DAILY 02/09/24 02/09/24 History Mv-Min/Folic/K1/Lycopen/Lutein 1 tab PO DAILY 02/09/24 02/09/24 History [Centrum Silver Men Tablet] Allergies Allergy/AdvReac Type Severity Reaction Status Date / Time sulfamethoxazole Allergy Rash/Hives Verified 02/09/24 13:32 [From Bactrim] trimethoprim [From Bactrim] Allergy Rash/Hives Verified 02/09/24 13:32 Physical Exam Vitals: Vital Signs Temp Pulse Pulse Resp BP BP Pulse Ox 02/09/24 20:00 99.9 F H 84 18 125/76 94 L 02/09/24 18:43 102.0 F H 109 H 14 130/78 95 02/09/24 13:59 98 18 117/80 96 02/09/24 11:47 98.8 F 89 18 117/74 96 02/09/24 11:19 98 F 116 H 20 117/74 98 Intake and Output 02/09/24 02/09/24 02/09/24 06:59 14:59 22:59 Other: Weight 58.967 kg 58.967 kg GENERAL DESCRIPTION: Middle-aged male lying in bed, no distress. No tachypnea or accessory muscle of respiration use. HEENT: Shows Pallor , no scleral icterus. Oral mucous membrane is dry. No pharyngeal erythema or thrush NECK: Trachea central, no thyromegaly. LUNGS: Unlabored breathing. Clear to auscultation anteriorly. No wheeze or crackle. HEART: S1, S2, regular rate and rhythm. ABDOMEN: Soft, no tenderness , guarding or rigidity, no organomegaly EXTREMITIES: No edema of feet. SKIN: Lower end of the anterior chest wall incision did have swelling and redness and purulent drainage that has been cultured NEUROLOGICAL: The patient is awake, alert, oriented x3, mood and affect normal. Results CBC & Chem 7: 02/09/24 11:44 02/09/24 11:44 Labs: Abnormal Lab Results - Last 24 Hours (Table) 02/09/24 02/09/24 Range/Units 11:44 11:44 WBC 16.1 H (3.8-10.6) k/uL RDW 16.4 H (11.5-15.5) % Neutrophils # 14.1 H (1.3-7.7) k/uL Lymphocytes # 0.9 L (1.0-4.8) k/uL Glucose 121 H (74-99) mg/dL Assessment and Plan (1) Sepsis Current Visit: Yes Status: Acute Code(s): A41.9 - SEPSIS, UNSPECIFIED ORGANISM SNOMED Code(s): 28537644 (2) Allergy to sulfa drugs Current Visit: Yes Status: Acute Code(s): Z88.2 - ALLERGY STATUS TO SULFONAMIDES SNOMED Code(s): 98217724 (3) Incisional infection Current Visit: Yes Status: Acute Code(s): T81.49XA - INFECTION FOLLOWING A PROCEDURE, OTHER SURGICAL SITE, INIT SNOMED Code(s): 02189853 (4) Abscess or cellulitis of chest wall Current Visit: No Status: Acute Code(s): PSG1610 - SNOMED Code(s): 227977192 Plan: 1patient presented to hospital with sepsis in this patient who did have fever tachycardia elevated white count source likely chest wall cellulitis and an abscess with concern for possible deep versus superficial infection and likely from gram-positive skin amador gram-negative infection less likely but not entirely excluded 2-local culture have not been the guide further antibiotic therapy 3-vancomycin pharmacy to dose target trough of 15 while watching kidney function and Vanco trough closely, will add cefepime for gram-negative coverage We will follow on clinical condition and cultures to further adjust medication if needed Thank you for this consultation we will follow the patient along with you Dictation was produced using [employer] dictation software. please excuse any gramm atical, word or spelling errors. Time with Patient: Greater than 30
[2024-02-10] MEDS: CEFEPIME 2 GM in SODIUM CHLORIDE 0.9% 100 ML IVPB SCH (00:28)
[2024-02-10] MEDS: HEPARIN SODIUM,PORCINE 5,000 UNIT/ML 1 ML VIAL SQ SCH (00:28)
[2024-02-10] MEDS: PANTOPRAZOLE 40 MG TABLET PO SCH (06:44)
[2024-02-10 08:36] LABS: HCT 39.2 % (39.6-50.0); MCH 28.6 pg (27.0-32.0); MCHC 33.2 g/dL (32.0-37.0); MCV 86.3 FL (80.0-97.0); Mean Platelet Volume 11.5 FL (9.5-12.2); NRBC Per 100 WBC 0 X 10*3/uL (0.00-0.01); Platelet Count 195 X 10*3/uL (140-440); RBC 4.54 X 10*6/uL (4.40-5.60); RDW 17.2 % (11.5-14.5); WBC 16.18 X 10*3/uL (4.50-10.00)
[2024-02-10 08:37] LABS: ALT 15 U/L (10-49); AST 17 U/L (14-35); Albumin 3.7 g/dL (3.8-4.9); Albumin/Globulin Ratio 1.85 Ratio (1.60-3.17); Alkaline Phosphatase 89 U/L (41-126); BUN/Creat Ratio 21.14 Ratio (12.00-20.00); Blood Urea Nitrogen 14.8 mg/dL (9.0-27.0); Calcium 8.6 mg/dL (8.7-10.3); Carbon Dioxide 21.3 mmol/L (21.6-31.8); Chloride 100 mmol/L (96-109); Glucose 102 mg/dL (70-110); Magnesium 2.1 mg/dL (1.5-2.4); Potassium 3.6 mmol/L (3.5-5.5); Sodium 134 mmol/L (135-145); Total Bilirubin 0.4 mg/dL (0.3-1.2); Total Protein 5.7 g/dL (6.2-8.2)
[2024-02-10] MEDS: ATORVASTATIN 40 MG TAB PO SCH (08:42)
[2024-02-10] MEDS: MULTIVITAMINS, THERA 1 EACH TAB PO SCH (08:42)
[2024-02-10] MEDS: AMIODARONE 200 MG TAB PO SCH (08:42)
[2024-02-10] MEDS: ESCITALOPRAM 10 MG TAB PO SCH (08:42)
[2024-02-10] MEDS: CLOPIDOGREL 75 MG TAB PO SCH (08:42)
[2024-02-10] MEDS: ASPIRIN 81 MG PO SCH (08:42)
[2024-02-10] MEDS ORDERED: ASPIRIN 325 MG TAB PO SCH (09:00)
--- NOTE | 2024-02-10 10:52 | P.GSCN ---
History of Present Illness Consult date: 02/10/24 Reason for Consult: Superficial sternal incision abscess Requesting physician: Geoff Guevara History of present illness: This is a 59-year-old gentleman who follows on an outpatient basis with the [facility] in [place] for his primary care and with Dr Adhikari for his cardiology care. He has a past medical history significant for coronary artery disease/unstable angina and previous myocardial infarction's status post multiple stents as well as off-pump CABG x 1 vessel left internal mammary artery to the left anterior sending coronary artery on September 17, 2023, hypertension, hyperlipidemia, chronic ongoing tobacco dependence, marijuana use, previous heavy EtOH use, peripheral arterial disease with claudication, left internal carotid artery stenosis with possible TIA in the past, medical noncompliance, and family history of premature coronary artery disease with his dad passing away at age 40 from a myocardial infarction. The patient had quit smoking after surgery, although reports he started smoking around 2 to 3 weeks ago. He presented to the emergency department here at [facility] yesterday February 09, 2024 with complaints of lower sternal incision redness, pain and purulent drainage from an abscess to his lower sternal incision. He reports there was a scabbed area to his chest which presented 2 to 3 days ago and he was picking at it and it started to drain pus. He denies any fever, chills, nausea, vomiting, diaphoresis, palpitations, cough or congestion, hematemesis, hemoptysis, he adache, or chest pressure. His Tmax temperature in the last 24 hours was 102 F. Initial laboratory results showed a WBC count of 16.1, hemoglobin 14.9, hematocrit 44.9, platelets 229, PT 11.9, INR 1.1, PTT 28.4, sodium 137, potassium 4.1, chloride 104, BUN 12, creatinine 0.70, glucose 121, calcium 9.1, magnesium 1.7, serial troponins less than 0.012 and C-reactive protein 13.20. A chest x-ray was completed which showed no acute cardiopulmonary disease. A twelve-lead EKG was completed which showed sinus tachycardia, with T wave abnormality to lead I/aVL/V5/V6 with a heart rate of 100 bpm. Subsequently, for further evaluation a CT scan of the chest with contrast was completed which showed no definitive organizing fluid collection along the incision site. Subsequently due to the patient's presenting symptoms and his open heart surgery in August 2023 a consult was placed to Dr. Jorge Yap from cardiothoracic surgery for further evaluation and treatment recommendations. Review of Systems A review of systems was completed and was negative except as mentioned in the HPI. Past Medical History Past Medical History: Coronary Artery Disease (CAD) (Status post coronary artery bypass grafting surgery x 1 vessel on September 17, 2023, CARRILLO to the LAD.), Chest Pain / Angina, CVA/TIA, Hyperlipidemia, Hypertension, Myocardial Infarction ([place]) Additional Past Medical History / Comment(s): PT states he ahs 7 cardiac stents. Pt states he lost his card. ETOH (sober since August 2023) Last Myocardial Infarction Date:: 2016 History of Any Multi-Drug Resistant Organisms: None Reported Past Surgical History: Coronary Bypass/CABG, Heart Catheterization With Stent Additional Past Surgical History / Comment(s): Single-vessel off-pump CABG September 17, 2023, bilateral cataract surgery Past Anesthesia/Blood Transfusion Reactions: No Reported Reaction Date of Last Stent Placement:: 2016 Past Psychological History: Anxiety, Depression Smoking Status: Current every day smoker Past Alcohol Use History: Abuse (Reports has not used alcohol in several months) Past Drug Use History: Marijuana - Past Family History Father Family Medical History: Coronary Artery Disease (CAD), Myocardial Infarction ([place]) Additional Family Medical History / Comment(s): from myocardial infarction in his 40s Mother Family Medical History: COPD Additional Family Medical History / Comment(s): from COPD in her 70s Brother(s) Family Medical History: Coronary Artery Disease (CAD) Additional Family Medical History / Comment(s): Had CABG at a young age Medications and Allergies Home Medications Medication Instructions Recorded Confirmed Type Atorvastatin [Lipitor] 40 mg PO DAILY 30 Days #30 tab 10/24/23 02/09/24 Rx Clopidogrel [Plavix] 75 mg PO DAILY 30 Days #30 tab 10/24/23 02/09/24 Rx Losartan [Cozaar] 50 mg PO DAILY@1200 30 Days #30 tab 10/24/23 02/09/24 Rx Metoprolol Tartrate [Lopressor] 50 mg PO BID 30 Days #60 tab 10/24/23 02/09/24 Rx Pantoprazole [Protonix] 40 mg PO AC-BRKFST 30 Days #30 tab 10/24/23 02/09/24 Rx Amiodarone [Cordarone] 200 mg PO DAILY 02/09/24 02/09/24 History Escitalopram [Lexapro] 10 mg PO DAILY 02/09/24 02/09/24 History Mv-Min/Folic/K1/Lycopen/Lutein 1 tab PO DAILY 02/09/24 02/09/24 History [Centrum Silver Men Tablet] Allergies Allergy/AdvReac Type Severity Reaction Status Date / Time sulfamethoxazole Allergy Rash/Hives Verified 02/09/24 13:32 [From Bactrim] trimethoprim [From Bactrim] Allergy Rash/Hives Verified 02/09/24 13:32 Surgical - Exam Vital Signs Temp Pulse Resp BP Pulse Ox 98 F 116 H 20 117/74 98 02/09/24 11:19 02/09/24 11:19 02/09/24 11:19 02/09/24 11:19 02/09/24 11:19 - General Mild pain and tenderness with palpating wound area to lower sternum well developed, well nourished, no distress, chronically ill - Eyes PERRL, normal ocular movement, no pale, no icteric - ENT normal pinna, normal nares, normal mucosa, no hearing loss, poor group home, dentures (Upper plate) - Neck Neck is supple, no lymphadenopathy. no masses, no bruits, trachea midline, no venous distension - Respiratory Lung sounds with scattered rhonchi throughout. No wheezes or crackles. Respirations are symmetrical and nonlabored. Oxygen saturations are 98% on room air. - Cardiovascular Regular rhythm and rate. S1 and S2 present, negative for S3, gallop or murmur. Peripheral pulses palpable. - Abdomen Abdomen is soft, nontender nondistended. Active bowel sounds present all 4 abdominal quadrants. No guarding rigidity. No organomegaly appreciated. - Genitourinary Deferred - Rectum Deferred - Integumentary Skin is warm and dry. No clubbing or cyanosis is present. Erythema to the lo wer anterior chest wall sternal incision, with purulent drainage. no rash, no growths - Neurologic No focal deficits. - Musculoskeletal Moves all 4 extremities with equal strength bilateral. normal gait, normal posture - Psychiatric oriented to time, oriented to person, oriented to place, speech is normal, memory intact Results - Labs 02/10/24 05:32 02/10/24 05:32 Abnormal Lab Results - Last 24 Hours (Table) 02/09/24 02/09/24 02/09/24 Range/Units 11:44 11:44 18:08 WBC 16.1 H (3.8-10.6) k/uL Hct (39.6-50.0) % RDW 16.4 H (11.5-15.5) % Neutrophils # 14.1 H (1.3-7.7) k/uL Lymphocytes # 0.9 L (1.0-4.8) k/uL ESR 61 H (0-20) mm/Hr Sodium (135-145) mmol/L Carbon Dioxide (21.6-31.8) mmol/L Anion Gap (4.00-12.00) mmol/L BUN/Creatinine Ratio (12.00-20.00) Ratio Glucose 121 H (74-99) mg/dL Calcium (8.7-10.3) mg/dL C-Reactive Protein (0.00-0.80) mg/dL Total Protein (6.2-8.2) g/dL Albumin (3.8-4.9) g/dL 02/09/24 02/10/24 02/10/24 Range/Units 18:08 05:32 05:32 WBC 16.18 H (3.8-10.6) k/uL Hct 39.2 L (39.6-50.0) % RDW 17.2 H (11.5-15.5) % Neutrophils # (1.3-7.7) k/uL Lymphocytes # (1.0-4.8) k/uL ESR (0-20) mm/Hr Sodium 134 L (135-145) mmol/L Carbon Dioxide 21.3 L (21.6-31.8) mmol/L Anion Gap 12.70 H (4.00-12.00) mmol/L BUN/Creatinine Ratio 21.14 H (12.00-20.00) Ratio Glucose (74-99) mg/dL Calcium 8.6 L (8.7-10.3) mg/dL C-Reactive Protein 13.20 H (0.00-0.80) mg/dL Total Protein 5.7 L (6.2-8.2) g/dL Albumin 3.7 L (3.8-4.9) g/dL Microbiology - Last 24 Hours (Table) 02/09/24 16:45 Gram Stain - Preliminary Other - Other 02/09/24 13:59 Gram Stain - Preliminary Chest Diabetes panel 02/09/24 02/10/24 Range/Units 11:44 05:32 Sodium 137 134 L (137-145) mmol/L Potassium 4.1 3.6 (3.5-5.1) mmol/L Chloride 104 100 (98-107) mmol/L Carbon Dioxide 26 21.3 L (22-30) mmol/L BUN 12 14.8 (9-20) mg/dL Creatinine 0.70 0.7 (0.66-1.25) mg/dL Glucose 121 H 102 (74-99) mg/dL Calcium 9.1 8.6 L (8.4-10.2) mg/dL AST 20 17 (17-59) U/L ALT 15 15 (4-49) U/L Alkaline Phosphatase 83 89 (38-126) U/L Total Protein 6.7 5.7 L (6.3-8.2) g/dL Albumin 4.2 3.7 L (3.5-5.0) g/dL Calcium panel 02/09/24 02/10/24 Range/Units 11:44 05:32 Calcium 9.1 8.6 L (8.4-10.2) mg/dL Albumin 4.2 3.7 L (3.5-5.0) g/dL Pituitary panel 02/09/24 02/10/24 Range/Units 11:44 05:32 Sodium 137 134 L (137-145) mmol/L Potassium 4.1 3.6 (3.5-5.1) mmol/L Chloride 104 100 (98-107) mmol/L Carbon Dioxide 26 21.3 L (22-30) mmol/L BUN 12 14.8 (9-20) mg/dL Creatinine 0.70 0.7 (0.66-1.25) mg/dL Glucose 121 H 102 (74-99) mg/dL Calcium 9.1 8.6 L (8.4-10.2) mg/dL Adrenal panel 02/09/24 02/10/24 Range/Units 11:44 05:32 Sodium 137 134 L (137-145) mmol/L Potassium 4.1 3.6 (3.5-5.1) mmol/L Chloride 104 100 (98-107) mmol/L Carbon Dioxide 26 21.3 L (22-30) mmol/L BUN 12 14.8 (9-20) mg/dL Creatinine 0.70 0.7 (0.66-1.25) mg/dL Glucose 121 H 102 (74-99) mg/dL Calcium 9.1 8.6 L (8.4-10.2) mg/dL Total Bilirubin 0.6 0.4 (0.2-1.3) mg/dL AST 20 17 (17-59) U/L ALT 15 15 (4-49) U/L Alkaline Phosphatase 83 89 (38-126) U/L Total Protein 6.7 5.7 L (6.3-8.2) g/dL Albumin 4.2 3.7 L (3.5-5.0) g/dL - Imaging Chest x-ray: report reviewed CT scan - chest: report reviewed Assessment and Plan Assessment: Superficial sternal incision wound, preliminary culture showed many gram- negative cocci Leukocytosis, Tmax temperature 102 F History of coronary artery disease/unstable angina and previous myocardial infarction's status post multiple stents as well as CABG x 1 CARRILLO to the LAD on September 17, 2023 Hypertension Hyperlipidemia Chronic ongoing tobacco dependence Marijuana use Previous heavy EtOH use Peripheral arterial disease with claudication Left internal carotid artery stenosis with possible TIA in the past Medical noncompliance Family history of premature coronary artery disease, father passing away at age 40 with a myocardial infarction Plan: The patient was seen and examined at his bedside on the 6 floor cardiac obs ervation unit. His chart and diagnostics were reviewed. His case was discussed in detail with Dr. Jorge Yap from cardiothoracic surgery. Wound cultures showing many gram-positive cocci, to his superficial sternal incision wound. Infectious diseases following, and the patient is currently on cefepime and vancomycin for IV antibiotic coverage. Aquacel silver dressing applied over wound, covered with 4 x 4 gauze and secured with tape. Change dressing twice daily and as needed. The importance of smoking cessation has been reinforced with the patient. He has been given the number to [id number]. Medical management other comorbidities per internal medicine and infectious disease. M ore recommendations to follow based on patient's clinical course. Thank you for this consult and we look forward to working with you in the care of this patient. I have personally seen and examined the patient, performed the documentation and the assessment and plan as written. Number of minutes spent on the visit: 30. YAMINI Wheeler
--- NOTE | 2024-02-10 11:14 | P.CRDCN ---
History of Present Illness Consult date: 02/10/24 Consult reason: chest pain History of present illness: This is a 59-year-old male with self-reported past medical history of 6 heart attacks, 7 cardiac stents, 100% left carotid stenosis, PAD, TIA, glaucoma, tobacco use, marijuana use, previous heavy EtOH use, peripheral artery disease, left internal carotid artery stenosis. In August of this year, patient was found to have coronary artery disease status post coronary artery bypass grafting x 1, left internal thoracic artery (in-situ) to left anterior descending coronary artery on 09/[address] Dee. He had a rehospitalization in September for sternal wound infection. Patient was treated with IV antibiotics switched to oral at the time of discharge. Patient was followed by cardiology at that time with recommendations for smoking cessation and follow-up in the office. Patient states that he has been only taking his beta-ingrid for the past week as he ran out of his other medications and he had to pay his rent. Patient does complain of chest pain at the site of the wound and also complains of he noticed drainage that started about 2 days ago. Patient presented with temperature max of 102, blood pressure 124/83, heart rate 94, pulse ox 96% on room air. EKG: Sinus rhythm with no acute ST-T wave changes Chest x-ray: No acute process CT chest revealed no definitive organizing fluid collection along the incision site. If there remains concern consider targeted ultrasound. Phlegmonous change present. Laboratory studies: WBC 16, hemoglobin 13. Sodium 134, potassium 3.6, BUN 14 creatinine 0.7. Troponins are negative x 3. C-reactive protein 13.2. Home cardiac medications: Amiodarone 200 mg daily, atorvastatin 40 mg daily, Plavix 75 mg daily, losartan 50 mg at noon, Lopressor 50 mg twice daily. Echocardiogram performed on 10/21/2023 revealed EF 55 to 60%, left ventricular hypertrophy. Cardiac catheterization performed on 09/10/2023 revealed 80% mid LAD stenosis, 100% ostial RCA stenosis, prior stenting of the RCA with 100% in-stent stenosis, left to right collaterals filling PL branch, normal LVEDP. Review Of Systems: At the time of my exam: CONSTITUTIONAL: Denies fever or chills. HEENT: Denies blurred vision, vision changes, or eye pain. Denies hemoptysis CARDIOVASCULAR: Denies chest pain. Denies orthopnea. Denies PND. Denies palpitations RESPIRATORY: Denies shortness of breath. GASTROINTESTINAL: Denies abdominal pain. Denies nausea or vomiting. HEMATOLOGIC: Denies bleeding disorders. GENITOURINARY: Denies any blood in urine. SKIN: Denies puritis. Denies rash. Reports wound Physical examination: Gen: This is a 59-year-old male in no acute distress VS: reviewed HEENT: Head is atraumatic, normocephalic. Pupils equal, round. Sclerae is anicteric. NECK: Supple. No JVD. LUNGS: Clear to auscultation. No wheezes or rhonchi. No intercostal retracti ons. HEART: Regular rate and rhythm. No murmur. Sternal wound open with pustulant drainage. ABDOMEN: Soft No tenderness. EXTREMITIES: No pedal edema. No calf tenderness. NEUROLOGICAL: Patient is awake, alert and oriented x3. Assessment: Atypical chest pain, most likely coming from sternal wound pain sternal wound infection with sepsis Recent CABG x 1-- 09/17/23 History of coronary artery disease with previous stenting History of carotid artery disease PAD in the bilateral lower extremities Hypertension Tobacco use and dependence History of medical noncompliance Plan: Resume patient's home cardiac medication Consults in place for infectious disease and CTS Smoking cessation, patient will be given [place] quit line information Thank you kindly for this consultation. Nurse practitioner note has been reviewed, I agree with documented findings and plan of care. Patient was seen and examined. Past Medical History Past Medical History: Coronary Artery Disease (CAD), Chest Pain / Angina, Hyperlipidemia, Hypertension, Myocardial Infarction ([place]) Additional Past Medical History / Comment(s): PT states he ahs 7 cardiac stents. Pt states he lost his card. ETOH (sober since August 2023) Last Myocardial Infarction Date:: 2016 History of Any Multi-Drug Resistant Organisms: None Reported Past Surgical History: Coronary Bypass/CABG, Heart Catheterization With Stent Additional Past Surgical History / Comment(s): Single-vessel off-pump CABG September 17, 2023 Past Anesthesia/Blood Transfusion Reactions: No Reported Reaction Date of Last Stent Placement:: 2016 Past Psychological History: Anxiety, Depression Smoking Status: Former smoker Past Alcohol Use History: Abuse Past Drug Use History: Marijuana - Past Family History Father Family Medical History: Coronary Artery Disease (CAD), Myocardial Infarction ([place]) Additional Family Medical History / Comment(s): from myocardial infarction in his 40s Mother Family Medical History: COPD Additional Family Medical History / Comment(s): from COPD in her 70s Brother(s) Family Medical History: Coronary Artery Disease (CAD) Additional Family Medical History / Comment(s): Had CABG at a young age Medications and Allergies Home Medications Medication Instructions Recorded Confirmed Type Atorvastatin [Lipitor] 40 mg PO DAILY 30 Days #30 tab 10/24/23 02/09/24 Rx Clopidogrel [Plavix] 75 mg PO DAILY 30 Days #30 tab 10/24/23 02/09/24 Rx Losartan [Cozaar] 50 mg PO DAILY@1200 30 Days #30 tab 10/24/23 02/09/24 Rx Metoprolol Tartrate [Lopressor] 50 mg PO BID 30 Days #60 tab 10/24/23 02/09/24 Rx Pantoprazole [Protonix] 40 mg PO AC-BRKFST 30 Days #30 tab 10/24/23 02/09/24 Rx Amiodarone [Cordarone] 200 mg PO DAILY 02/09/24 02/09/24 History Escitalopram [Lexapro] 10 mg PO DAILY 02/09/24 02/09/24 History Mv-Min/Folic/K1/Lycopen/Lutein 1 tab PO DAILY 02/09/24 02/09/24 History [Centrum Silver Men Tablet] Allergies Allergy/AdvReac Type Severity Reaction Status Date / Time sulfamethoxazole Allergy Rash/Hives Verified 02/09/24 13:32 [From Bactrim] trimethoprim [From Bactrim] Allergy Rash/Hives Verified 02/09/24 13:32 Physical Exam Vitals: Vital Signs Temp Pulse Pulse Resp BP BP Pulse Ox 02/10/24 07:15 98.7 F 94 16 124/83 96 02/10/24 02:00 99.8 F H 89 18 119/75 94 L 02/10/24 01:32 99.8 F H 89 18 119/75 94 L 02/09/24 20:00 99.9 F H 84 18 125/76 94 L 02/09/24 18:43 102.0 F H 109 H 14 130/78 95 02/09/24 13:59 98 18 117/80 96 02/09/24 11:47 98.8 F 89 18 117/74 96 02/09/24 11:19 98 F 116 H 20 117/74 98 Intake and Output 02/09/24 02/10/24 02/10/24 22:59 06:59 14:59 Intake Total 480 480 Balance 480 480 Intake: Oral 480 480 Other: Voiding Method Toilet # Voids 2 2 Weight 58.967 kg Results 02/10/24 05:32 02/10/24 05:32 Cardiac Enzymes 02/09/24 02/09/24 02/09/24 Range/Units 11:44 11:44 14:43 AST 20 (17-59) U/L Troponin I <0.012 <0.012 (0.000-0.034) ng/mL 02/09/24 Range/Units 18:08 AST (17-59) U/L Troponin I <0.012 (0.000-0.034) ng/mL Coagulation 02/09/24 Range/Units 11:44 PT 11.9 (10.0-12.5) sec APTT 28.4 (22.0-30.0) sec CBC 02/09/24 Range/Units 11:44 WBC 16.1 H (3.8-10.6) k/uL RBC 5.17 (4.30-5.90) m/uL Hgb 14.9 (13.0-17.5) gm/dL Hct 44.9 (39.0-53.0) % Plt Count 229 (150-450) k/uL Comprehensive Metabolic Panel 02/09/24 Range/Units 11:44 Sodium 137 (137-145) mmol/L Potassium 4.1 (3.5-5.1) mmol/L Chloride 104 (98-107) mmol/L Carbon Dioxide 26 (22-30) mmol/L BUN 12 (9-20) mg/dL Creatinine 0.70 (0.66-1.25) mg/dL Glucose 121 H (74-99) mg/dL Calcium 9.1 (8.4-10.2) mg/dL AST 20 (17-59) U/L ALT 15 (4-49) U/L Alkaline Phosphatase 83 (38-126) U/L Total Protein 6.7 (6.3-8.2) g/dL Albumin 4.2 (3.5-5.0) g/dL Current Medications Generic Name Dose Route Start Last Admin Trade Name Freq PRN Reason Stop Dose Admin Acetaminophen 650 mg 02/09/24 15:44 02/10/24 00:39 Acetaminophen Tab 325 Mg Tab PO 650 mg Q6HR PRN Administration Mild Pain or Fever > 100.5 Hydrocodone Bitart/Acetaminophen 1 each 02/09/24 12:57 02/10/24 06:44 Hydrocodone/Apap 10-325mg 1 Each Tab PO 1 each Q6HR PRN Administration Pain Albuterol/Ipratropium 3 ml 02/09/24 12:57 Ipratropium-Albuterol 3 Ml Neb INHALATION RT-QID PRN Shortness Of Breath Amiodarone HCl 200 mg 02/10/24 09:00 Amiodarone 200 Mg Tab PO DAILY [facility] Aspirin 81 mg 02/10/24 09:00 Aspirin 81 Mg PO DAILY [facility] Atorvastatin Calcium 40 mg 02/10/24 09:00 Atorvastatin 40 Mg Tab PO DAILY [facility] Clopidogrel Bisulfate 75 mg 02/10/24 09:00 Clopidogrel 75 Mg Tab PO DAILY [facility] Escitalopram Oxalate 10 mg 02/10/24 09:00 Escitalopram 10 Mg Tab PO DAILY [facility] Heparin Sodium (Porcine) 5,000 unit 02/10/24 00:00 02/10/24 00:28 Heparin Sodium,Porcine 5,000 Unit/Ml 1 Ml Vial SQ 5,000 unit Q8HR [facility] Administration Vancomycin HCl 1,000 mg/ 250 mls @ 125 mls/hr 02/09/24 17:00 02/10/24 00:28 Sodium Chloride IVPB 125 mls/hr Q8H [facility] Administration Cefepime HCl 2 gm/ Sodium 100 mls @ 25 mls/hr 02/10/24 00:00 02/10/24 00:28 Chloride IVPB 25 mls/hr Q8HR [facility] Administration Protocol Ketorolac Tromethamine 15 mg 02/09/24 16:19 02/10/24 02:43 Ketorolac 15 Mg/Ml 1 Ml Vial IVP 02/14/24 16:20 15 mg Q6HR PRN Administration Pain Losartan Potassium 50 mg 02/10/24 12:00 Losartan 50 Mg Tab PO DAILY@1200 [facility] Melatonin 3 mg 02/09/24 15:44 Melatonin 3 Mg Tablet PO HS PRN Insomnia Metoprolol Tartrate 50 mg 02/09/24 21:00 02/09/24 20:29 Metoprolol Tartrate 50 Mg Tab PO 50 mg BID [facility] Administration Miscellaneous Information 1 each 02/09/24 16:20 Rx Info: [facility] 16:21 DAILY PRN Per Protocol Miscellaneous Information 0 each 02/10/24 16:00 Vancomycin Trough Due 1 Each [facility] 02/10/24 16:01 DIRECTED ONE Multivitamins 1 each 02/10/24 09:00 Multivitamins, Thera 1 Each Tab PO DAILY [facility] Naloxone HCl 0.2 mg 02/09/24 12:54 Naloxone 0.4 Mg/Ml 1 Ml Vial IV Q2M PRN Opioid Reversal Nicotine 1 patch 02/09/24 17:00 02/09/24 17:27 Nicotine 14mg/24hr Patch TRANSDERM Not Given DAILY [facility] Pantoprazole Sodium 40 mg 02/10/24 07:30 02/10/24 06:44 Pantoprazole 40 Mg Tablet PO 40 mg AC-BRKFST [facility] Administration Intake and Output 02/09/24 02/10/24 02/10/24 22:59 06:59 14:59 Intake Total 480 480 Balance 480 480 Intake: Oral 480 480 Other: Voiding Method Toilet # Voids 2 2 Weight 58.967 kg 02/09/24 11:44 02/09/24 11:44
[2024-02-10] MEDS: LOSARTAN 50 MG TAB PO SCH (12:02)
--- NOTE | 2024-02-10 14:06 | P.PN ---
Subjective Progress Note Date: 02/10/24 Hospital Course: Patient is a very pleasant 59-year-old male with a past medical history of CAD status post previous stenting and CABG x 1 on 08/31/23, hypertension, hyperlipidemia, anxiety, depression, nicotine and previous alcohol dependence currently living at clean living facility. He presented to the emergency department with a chief complaint of chest pain. Patient reports midsternal chest pain somewhat ongoing since completion of CABG in August but states it has significantly worsened over the past 2 to 3 days and accompanied by with newly developed mid incisional drainage of thick purulent fluid and surrounding erythema. Patient reports previous infection at same site that was treated with IV antibiotics and he believed fully resolved. He reports abscess returned in same location about 2 to 3 days ago and accompanied by worsening midsternal ch est pain that is reproducible and described as sharp and persistent. He denies having any radiation of pain and denies any associated symptoms including fevers, chills, diaphoresis, palpitations, shortness of breath, cough or congestion, nausea, vomiting, or experiencing any numbness/tingling/weakn ess/swelling in his extremities. Upon arrival to our facility, patient underwent evaluation in the emergency department. Vital signs upon arrival show blood pressure 117/74, heart rate 116, respiratory rate 20, temp 98.0 F, and SpO2 of 98% on room air. EKG completed showing sinus tachycardia at 100 bpm with T wave inversion in inferior and lateral leads II, III, aVF, and V5 and V6. T wave inversion is a new finding when compared to EKG completed 10/22/2023 upon personal review, interpretation, and comparison. Chest x-ray completed negative for acute cardiopulmonary process. Labs completed and reviewed. CBC showing leukocytosis with WBC count of 16.1. Coagulation profile normal findings. BMP unremarkable. Blood glucose 121. Magnesium slightly low at 1.7. Liver profile unremarkable. Troponin was negative at less than 0.012. Patient admitted under our services with consultation to infectious disease, cardiothoracic surgery and cardiology. Physical exam: Patient seen and fully evaluated at bedside. He reports midsternal chest pain remains unchanged. Patient continues to have purulent drainage from wound/abscess. He denies any other complaints at this time. Vital signs reviewed and stable. General: Nontoxic, no distress and appears stated age. Derm: Skin warm and dry, normal coloration for ethnicity. Head: Atraumatic, normocephalic and symmetric. Eyes: EOM's intact, no lid lag, and anicteric sclera Mouth: no lip lesions, mucus membranes moist Cardiovascular: regular rate and rhythm with normal S1S2, no murmur, positive posterior tibial pulses bilaterally, and cap refill < 2 seconds. Sternal scar appears to be healing well with the exception of lower area of small abscess just right of midsternal scar with purulent drainage and surrounding erythema. Lungs: Respirations even, regular, and unlabored on room air. Lungs CTA bilaterally, no rhonchi, no rales, no wheezing, and no accessory muscle usage. Abdominal: soft, nontender to palpation, no guarding, no appreciable organomegaly Ext: ROM intact. No gross muscle atrophy, no edema, no contractures Neuro: Speech clear, face symmetrical and CN II-XII grossly intact with no noted focal neuro deficits Psych: Alert and oriented to person, place, time, and situation. Appropriate and pleasant affect. Assessment and Plan of Care: Superficial Abscess with purulent drainage from midsternal incision site Atypical chest pain, reducible and suspect secondary to above however patient does have newly noted EKG changes in inferior/lateral leads Sepsis upon admission, secondary to above Leukocytosis with pyrexia Status post CABG x 1 on 09/17/23 CAD with previous stenting Hypertension Hyperlipidemia -Follow-up on wound cultures and blood cultures. Preliminary wound culture results showing many gram-positive cocci. -ESR elevated at 61 and CRP of 13.2. -CT chest with contrast completed showing no definitive organized fluid collection along the incision site on CT imaging, did reveal phlegmmonous changes. -Continue IV antibiotics with vancomycin 1000 mg every 8 hours. Will monitor renal function and vancomycin trough closely for any signs of vancomycin associated renal toxicity. -Infectious disease consulted and discussed case in detail with infectious disease physician, Dr. Reynolds who added on cefepime 2 g every 8 hours to current antibiotic regimen. -Cardiology consulted s/t reports of chest pain and EKG changes, appreciate recommendations. -Cardiothoracic surgery consulted, discussed with Cardiothoracic APARTMENT RENTAL CLERK -Telemetry monitoring. -Continue cardiac medication regimen with aspirin 81 mg daily, atorvastatin 40 mg daily, Plavix 75 mg daily, losartan 50 mg daily, amiodarone 200 mg daily, and metoprolol 50 mg twice daily. Anxiety and depression -Continue daily medication regimen with Lexapro 10 mg daily. Nicotine dependence -Strongly recommend smoking cessation. Patient reports he did quit but restarted 2 weeks ago. Order placed for nicotine patch 14 mg daily. Data and imaging reviewed: Labs reviewed. Troponins trended overnight less than 0.012 x 3 draws. ESR elevated at 61 and CRP of 13.20. CBC showing leukocytosis with WBC count of 16.18. BMP showing high anion gap metabolic acidosis with chloride of 100, bica rb of 21.3, and anion gap of 12.70. Blood glucose 102. Magnesium 2.1. Liver profile unremarkable with exception of hypoalbuminemia with albumin of 3.7. Vital signs reviewed. Overnight patient had elevated temp of 102.0 F. He is currently afebrile with a temp of 98.7. Blood pressure 124/83, heart rate 94, respiratory rate 16, and SpO2 of 96% on room air. Preliminary wound culture results showing positive for many gram-positive cocci. CODE STATUS: Full code DVT prophylaxis: Heparin Anticipated discharge date: Pending clinical course Anticipated discharge place: Home Patient was seen independently by Nurse Practitioner. This document was prepared using [employer] dictation software. Please allow for errors in entry level electrical engineer while rare they do occur. Geoff Guevara NP rendered care for this patient independently, reviewed the findings and plan as documented in the note above and agree with plan. I did not physically speak with or examine the patient on this date. Objective - Vital Signs Vital signs: Vital Signs Temp 98.7 F 02/10/24 07:15 Pulse 94 02/10/24 07:15 Resp 16 02/10/24 07:15 BP 124/83 02/10/24 07:15 Pulse Ox 98 02/10/24 08:31 FiO2 21 02/10/24 08:31 Intake & Output 02/09/24 02/10/24 02/10/24 18:59 06:59 18:59 Intake Total 960 Balance 960 Weight 58.967 kg 58.967 kg Intake: Oral 960 Other: Voiding Method Toilet # Voids 2 - Labs CBC & Chem 7: 02/10/24 05:32 02/10/24 05:32 Labs: Abnormal Lab Results - Last 24 Hours (Table) 02/09/24 02/09/24 02/09/24 Range/Units 11:44 11:44 18:08 WBC 16.1 H (3.8-10.6) k/uL RDW 16.4 H (11.5-15.5) % Neutrophils # 14.1 H (1.3-7.7) k/uL Lymphocytes # 0.9 L (1.0-4.8) k/uL ESR 61 H (0-20) mm/Hr Glucose 121 H (74-99) mg/dL C-Reactive Protein (0.00-0.80) mg/dL 02/09/24 Range/Units 18:08 WBC (3.8-10.6) k/uL RDW (11.5-15.5) % Neutrophils # (1.3-7.7) k/uL Lymphocytes # (1.0-4.8) k/uL ESR (0-20) mm/Hr Glucose (74-99) mg/dL C-Reactive Protein 13.20 H (0.00-0.80) mg/dL Microbiology - Last 24 Hours (Table) 02/09/24 16:45 Gram Stain - Preliminary Other - Other 02/09/24 13:59 Gram Stain - Preliminary Chest
[2024-02-10] MEDS: VANCOMYCIN TROUGH DUE 1 EACH MISC MISCELLANE ONE (18:17)
--- NOTE | 2024-02-10 21:41 | P.PN ---
Subjective Progress Note Date: 02/10/24 Principal diagnosis: Reason for follow-up is a sepsis and chest wall cellulitis Patient is a 59-year-old male with a past medical history negative for hypertension hyperlipidemia [place] coronary artery disease in this patient who is status post single-vessel off-pump CABG on September 17, 2023 presenting to the hospital with increasing swelling and redness and drainage noted of incision. On today's evaluation that is 02/10/2024,the patient did spike a fever of 102.4 F last evening the patient is afebrile this morning e, patient is breathing comfortably on room air, the patient lower chest pain slightly decreased in intensity shortness of breath and no significant cough, patient denies abdominal pain, no nausea vomiting or diarrhea. Patient white count 16.18, creatinine 0.7 cultures are currently pending CT did not show any drainable abscess Objective - Vital Signs Vital signs: Vital Signs Temp 98.7 F 02/10/24 07:15 Pulse 94 02/10/24 08:00 Resp 16 02/10/24 08:00 BP 124/83 02/10/24 07:15 Pulse Ox 98 02/10/24 08:31 FiO2 21 02/10/24 08:31 Intake & Output 02/09/24 02/10/24 02/10/24 18:59 06:59 18:59 Intake Total 960 118 Balance 960 118 Weight 58.967 kg 58.967 kg Intake: Oral 960 118 Other: Voiding Method Toilet Toilet # Voids 2 - Exam GENERAL DESCRIPTION: Middle-age male lying in bed in no distress RESPIRATORY SYSTEM: Unlabored breathing , decreased breath sounds at bases HEART: S1 S2 regular rate and rhythm , chest wall wound is currently dressed ABDOMEN: Soft , no tenderness EXTREMITIES: No edema feet - Labs CBC & Chem 7: 02/10/24 05:32 02/10/24 05:32 Labs: Abnormal Lab Results - Last 24 Hours (Table) 02/09/24 02/09/24 02/09/24 Range/Units 11:44 11:44 18:08 WBC 16.1 H (3.8-10.6) k/uL Hct (39.6-50.0) % RDW 16.4 H (11.5-15.5) % Neutrophils # 14.1 H (1.3-7.7) k/uL Lymphocytes # 0.9 L (1.0-4.8) k/uL ESR 61 H (0-20) mm/Hr Sodium (135-145) mmol/L Carbon Dioxide (21.6-31.8) mmol/L Anion Gap (4.00-12.00) mmol/L BUN/Creatinine Ratio (12.00-20.00) Ratio Glucose 121 H (74-99) mg/dL Calcium (8.7-10.3) mg/dL C-Reactive Protein (0.00-0.80) mg/dL Total Protein (6.2-8.2) g/dL Albumin (3.8-4.9) g/dL 02/09/24 02/10/24 02/10/24 Range/Units 18:08 05:32 05:32 WBC 16.18 H (3.8-10.6) k/uL Hct 39.2 L (39.6-50.0) % RDW 17.2 H (11.5-15.5) % Neutrophils # (1.3-7.7) k/uL Lymphocytes # (1.0-4.8) k/uL ESR (0-20) mm/Hr Sodium 134 L (135-145) mmol/L Carbon Dioxide 21.3 L (21.6-31.8) mmol/L Anion Gap 12.70 H (4.00-12.00) mmol/L BUN/Creatinine Ratio 21.14 H (12.00-20.00) Ratio Glucose (74-99) mg/dL Calcium 8.6 L (8.7-10.3) mg/dL C-Reactive Protein 13.20 H (0.00-0.80) mg/dL Total Protein 5.7 L (6.2-8.2) g/dL Albumin 3.7 L (3.8-4.9) g/dL Microbiology - Last 24 Hours (Table) 02/09/24 16:45 Gram Stain - Preliminary Other - Other 02/09/24 13:59 Gram Stain - Preliminary Chest Assessment and Plan (1) Sepsis Current Visit: Yes Status: Acute Code(s): A41.9 - SEPSIS, UNSPECIFIED ORGANISM SNOMED Code(s): 10773594 (2) Allergy to sulfa drugs Current Visit: Yes Status: Acute Code(s): Z88.2 - ALLERGY STATUS TO SULFONAMIDES SNOMED Code(s): 95590088 (3) Incisional infection Current Visit: Yes Status: Acute Code(s): T81.49XA - INFECTION FOLLOWING A PROCEDURE, OTHER SURGICAL SITE, INIT SNOMED Code(s): 94829081 (4) Abscess or cellulitis of chest wall Current Visit: No Status: Acute Code(s): TLY6867 - SNOMED Code(s): 383606134 Plan: 1patient presented to hospital with sepsis in this patient who did have fever tachycardia elevated white count source likely chest wall cellulitis and an abscess with concern for possible deep versus superficial infection and likely from gram-positive skin amador gram-negative infection less likely but not entirely excluded 2-local culture are currently pending CT of the chest did not show any drainable abscess 3-patient to continue with vancomycin pharmacy to dose target trough of 15 and cefepime while waiting for the culture to finalize Dictation was produced using [employer] dictation software. please excuse any grammatical, word or spelling errors. Time with Patient: Less than 30
[2024-02-11] MEDS: VANCOMYCIN 1,250 MG in SODIUM CHLORIDE 0.9% 250 ML IVPB SCH (01:47)
[2024-02-11 08:29] LABS: HCT 37.6 % (39.6-50.0); HGB 12.2 g/dL (13.0-17.0); MCH 28.2 pg (27.0-32.0); MCHC 32.4 g/dL (32.0-37.0); Mean Platelet Volume 11.7 FL (9.5-12.2); NRBC Per 100 WBC 0 X 10*3/uL (0.00-0.01); Platelet Count 184 X 10*3/uL (140-440); RBC 4.32 X 10*6/uL (4.40-5.60); RDW 17.2 % (11.5-14.5); WBC 12.16 X 10*3/uL (4.50-10.00)
[2024-02-11 09:07] LABS: Blood Urea Nitrogen 19.5 mg/dL (9.0-27.0); Calcium 8.3 mg/dL (8.7-10.3); Carbon Dioxide 20.3 mmol/L (21.6-31.8); Chloride 101 mmol/L (96-109); Glucose 94 mg/dL (70-110); Magnesium 1.8 mg/dL (1.5-2.4); Potassium 3.6 mmol/L (3.5-5.5); Sodium 133 mmol/L (135-145)
--- NOTE | 2024-02-11 10:19 | P.PN ---
Subjective Progress Note Date: 02/11/24 Principal diagnosis: Superficial sternal incision abscess. Past medical history significant for coronary artery disease/unstable angina and previous myocardial infarction's status post multiple stents as well as off-pump CABG x 1 vessel left internal mammary artery to the left anterior sending coronary artery on September 17, 2023, hypertension, hyperlipidemia, chronic ongoing tobacco dependence, marijuana use, previous heavy EtOH use, peripheral arterial disease with claudication, left internal carotid artery stenosis with possible TIA in the past, medical noncompliance, and family history of premature coronary artery disease with his dad passing away at age 40 from a myocardial infarction. The patient was seen and examined in follow-up today February 11, 2024 at his bedside on the 6 floor cardiac observation unit. The patient is currently laying in bed, is awake, alert, oriented x 3 and is in no acute apparent distress. Denies any complaints of shortness of breath at this time, and states that he is having some intermittent pain to his chest wound. Currently rating his pain 2-3 out of 10 on the pain scale. Sternal wound culture showed positive for presumptive MRSA and blood cultures after 24 hours showing no growth. He remains on vancomycin for IV antibiotic coverage, managed by infectious disease. Laboratory results this morning show a WBC count of 12.16 which is trending down from 16.18, hemoglobin 12.2, platelets 184, BUN 19.5 and creatinine 0.6. His Tmax temperature in the last 24 hours was 99.8 degrees Fahrenheit. Dressing to his sternal wound was changed this morning, continues to have some purulent drainage. Remote telemetry showing normal sinus rhythm heart rate 89 bpm. Oxygen saturations are 94% on room air. Laboratory results reviewed. Objective - Vital Signs Vital signs: Vital Signs Temp 97.4 F L 02/11/24 07:48 Pulse 96 02/11/24 08:03 Resp 16 02/11/24 07:48 BP 144/78 02/11/24 07:48 Pulse Ox 94 L 02/11/24 07:48 FiO2 21 02/10/24 08:31 Intake & Output 02/10/24 02/11/24 02/11/24 18:59 06:59 18:59 Intake Total 694 540 118 Balance 694 540 118 Intake: Oral 694 540 118 Other: Voiding Method Toilet # Voids 2 1 - Exam CONSTITUTIONAL: Appears comfortable, cooperative, no apparent acute distress. HEENT: Neck is supple, no JVD, no lymphadenopathy. RESPIRATORY: Lungs sounds essentially clear throughout. Respirations are symmetrical and nonlabored. Currently on room air with oxygen saturations 94%. Strong cough. CARDIOVASCULAR: Regular rhythm and rate. S1 and S2 present, negative for S3, gallop or murmur. Sternum is stable. Palpable peripheral pulses bilaterally. No calf pain or tenderness noted. GASTROINTESTINAL: Abdomen soft, nontender, nondistended. Hypoactive bowel sounds present 4 quadrants. Tolerating diet. Passing flatus. No guarding or rigidity. GENITOURINARY: Continues to void. INTEGUMENTARY: Skin is warm and dry with no evidence of clubbing or cyanosis. Erythema to the lower anterior chest wall sternal incision, with purulent drainage. NEUROLOGIC: Cranial nerves II through XII intact. No focal deficits. MUSKULOSKELETAL: Able to move all extremities, strength equal bilaterally. PSYCHIATRIC: Alert and oriented to person place and time, appropriate affect, intact judgment and insight. - Allied health notes Allied health notes reviewed: nursing - Labs CBC & Chem 7: 02/11/24 04:11 02/11/24 04:11 Labs: Abnormal Lab Results - Last 24 Hours (Table) 02/11/24 02/11/24 Range/Units 04:11 04:11 WBC 12.16 H (4.50-10.00) X 10*3/uL RBC 4.32 L (4.40-5.60) X 10*6/uL Hgb 12.2 L (13.0-17.0) g/dL Hct 37.6 L (39.6-50.0) % RDW 17.2 H (11.5-14.5) % Sodium 133 L (135-145) mmol/L Carbon Dioxide 20.3 L (21.6-31.8) mmol/L BUN/Creatinine Ratio 32.50 H (12.00-20.00) Ratio Calcium 8.3 L (8.7-10.3) mg/dL Microbiology - Last 24 Hours (Table) 02/09/24 17:17 Blood Culture - Preliminary Blood 02/09/24 16:45 Gram Stain - Preliminary Other - Other Wound Culture - Preliminary Presumptive MRSA 02/09/24 13:59 Gram Stain - Preliminary Chest Wound Culture - Preliminary Presumptive MRSA Assessment and Plan Assessment: Superficial sternal incision wound, preliminary wound culture shows presumptive MRSA, CT scan of the chest did not show any drainable abscess Leukocytosis, likely secondary to above History of coronary artery disease/unstable angina and previous myocardial infarction's status post multiple stents as well as CABG x 1 CARRILLO to the LAD on September 17, 2023 Hypertension Hyperlipidemia Chronic ongoing tobacco dependence Marijuana use Previous heavy EtOH use, currently living in a sober living environment Peripheral arterial disease with claudication Left internal carotid artery stenosis with possible TIA in the past Medical noncompliance Family history of premature coronary artery disease, father passing away at age 40 with a myocardial infarction Plan: Continue wound care as ordered to the sternal incision wound. Antibiotic management per infectious disease recommendations. Currently on vancomycin. Continue to monitor daily labs. Continue to reinforce the importance of and encourage smoking sensation. Out of bed for all meals. Increase activity as tolerated. Medical management other comorbidities per internal medicine and infectious disease. More recommendations to follow based on patient's clinical course. Time with Patient: Greater than 30
--- NOTE | 2024-02-11 10:56 | P.PN ---
Subjective Progress Note Date: 02/11/24 Consult reason: chest pain History of present illness: This is a 59-year-old male with self-reported past medical history of 6 heart attacks, 7 cardiac stents, 100% left carotid stenosis, PAD, TIA, glaucoma, tobacco use, marijuana use, previous heavy EtOH use, peripheral artery disease, left internal carotid artery stenosis. In August of this year, patient was found to have coronary artery disease status post coronary artery bypass grafting x 1, left internal thoracic artery (in-situ) to left anterior descending coronary artery on 09/[address] Dee. He had a rehospitalization in September for sternal wound infection. Patient was treated with IV antibiotics switched to oral at the time of discharge. Patient was followed by cardiology at that time with recommendations for smoking cessation and follow-up in the office. Patient states that he has been only taking his beta-ingrid for the past week as he ran out of his other medications and he had to pay his rent. Patient does complain of chest pain at the site of the wound and also complains of he noticed drainage that started about 2 days ago. Patient presented with temperature max of 102, blood pressure 124/83, heart rate 94, pulse ox 96% on room air. EKG: Sinus rhythm with no acute ST-T wave changes Chest x-ray: No acute process CT chest revealed no definitive organizing fluid collection along the incision site. If there remains concern consider targeted ultrasound. Phlegmonous change present. Laboratory studies: WBC 16, hemoglobin 13. Sodium 134, potassium 3.6, BUN 14 creatinine 0.7. Troponins are negative x 3. C-reactive protein 13.2. Home cardiac medications: Amiodarone 200 mg daily, atorvastatin 40 mg daily, Plavix 75 mg daily, losartan 50 mg at noon, Lopressor 50 mg twice daily. Echocardiogram performed on 10/21/2023 revealed EF 55 to 60%, left ventricular hypertrophy. Cardiac catheterization performed on 09/10/2023 revealed 80% mid LAD stenosis, 100% ostial RCA stenosis, prior stenting of the RCA with 100% in-stent stenosis, left to right collaterals filling PL branch, normal LVEDP. 02/11/2024 Patient is seen and examined. Patient states that his pain is not much better but he is able to move a little bit more today. He has been seen by infectious disease and cardiothoracic surgery. He has been afebrile for 24 hours. Blood pressure 144/78, heart rate 96, pulse ox 94% on room air. Repeat blood work reveals WBC is down to 12.1, hemoglobin 12.2. Sodium 133, potassium 3.6, creatinine 0.6. Physical examination: Gen: This is a 59-year-old male in no acute distress VS: reviewed HEENT: Head is atraumatic, normocephalic. Pupils equal, round. Sclerae is anicteric. NECK: Supple. No JVD. LUNGS: Clear to auscultation. No wheezes or rhonchi. No intercostal retractions. HEART: Regular rate and rhythm. No murmur. Sternal wound open with pustulant drainage. ABDOMEN: Soft No tenderness. EXTREMITIES: No pedal edema. No calf tenderness. NEUROLOGICAL: Patient is awake, alert and oriented x3. Assessment: Atypical chest pain, most likely coming from sternal wound pain sternal wound infection with sepsis Recent CABG x 1-- 09/17/23 History of coronary artery disease with previous stenting History of carotid artery disease PAD in the bilateral lower extremities Hypertension Tobacco use and dependence History of medical noncompliance Plan: Continue patient's home cardiac medication Consults in place for infectious disease and CTS Smoking cessation, patient will be given [facility] quit line information Cardiology will sign off this case and follow on an as-needed basis. Please reconsult for any new concerns. Patient may follow-up in the office in one to 2 weeks. Nurse practitioner note has been reviewed, I agree with documented findings and plan of care. Patient was seen and examined. Objective - Vital Signs Vital signs: Vital Signs Temp 97.4 F L 02/11/24 07:48 Pulse 96 02/11/24 08:03 Resp 16 02/11/24 07:48 BP 144/78 02/11/24 07:48 Pulse Ox 94 L 02/11/24 07:48 FiO2 21 02/10/24 08:31 Intake & Output 02/10/24 02/11/24 02/11/24 18:59 06:59 18:59 Intake Total 694 540 Balance 694 540 Intake: Oral 694 540 Other: Voiding Method Toilet # Voids 2 1 - Labs CBC & Chem 7: 02/11/24 04:11 02/11/24 04:11 Labs: Abnormal Lab Results - Last 24 Hours (Table) 02/11/24 Range/Units 04:11 WBC 12.16 H (4.50-10.00) X 10*3/uL RBC 4.32 L (4.40-5.60) X 10*6/uL Hgb 12.2 L (13.0-17.0) g/dL Hct 37.6 L (39.6-50.0) % RDW 17.2 H (11.5-14.5) % Microbiology - Last 24 Hours (Table) 02/09/24 17:17 Blood Culture - Preliminary Blood 02/09/24 16:45 Gram Stain - Preliminary Other - Other Wound Culture - Preliminary Presumptive MRSA 02/09/24 13:59 Gram Stain - Preliminary Chest Wound Culture - Preliminary Presumptive MRSA
--- NOTE | 2024-02-11 13:33 | P.PN ---
Subjective Progress Note Date: 02/11/24 Principal diagnosis: Reason for follow-up is a sepsis and chest wall cellulitis Patient is a 59-year-old male with a past medical history negative for hypertension hyperlipidemia [place] coronary artery disease in this patient who is status post single-vessel off-pump CABG on September 17, 2023 presenting to the hospital with increasing swelling and redness and drainage noted of incision. On today's evaluation that is 02/11/2024,the patient remains to be afebrile, patient is on room air not requiring supplemental oxygen and denies any shortness of breath patient right lower chest wall pain discomfort has slightly decreased no further drainage no nausea vomiting or diarrhea. Patient white count is down to 12.16, creatinine 0.6 blood culture currently pending Objective - Vital Signs Vital signs: Vital Signs Temp 97.8 F 02/11/24 12:08 Pulse 77 02/11/24 12:08 Resp 18 02/11/24 12:08 BP 118/77 02/11/24 12:08 Pulse Ox 97 02/11/24 12:08 FiO2 21 02/10/24 08:31 Intake & Output 02/10/24 02/11/24 02/11/24 18:59 06:59 18:59 Intake Total 694 540 118 Balance 694 540 118 Intake: Oral 694 540 118 Other: Voiding Method Toilet Toilet # Voids 2 1 - Exam GENERAL DESCRIPTION: Middle-age male lying in bed in no distress RESPIRATORY SYSTEM: Unlabored breathing , decreased breath sounds at bases HEART: S1 S2 regular rate and rhythm , chest wall wound is currently dressed ABDOMEN: Soft , no tenderness EXTREMITIES: No edema feet - Labs CBC & Chem 7: 02/11/24 04:11 02/11/24 04:11 Labs: Abnormal Lab Results - Last 24 Hours (Table) 02/11/24 02/11/24 Range/Units 04:11 04:11 WBC 12.16 H (4.50-10.00) X 10*3/uL RBC 4.32 L (4.40-5.60) X 10*6/uL Hgb 12.2 L (13.0-17.0) g/dL Hct 37.6 L (39.6-50.0) % RDW 17.2 H (11.5-14.5) % Sodium 133 L (135-145) mmol/L Carbon Dioxide 20.3 L (21.6-31.8) mmol/L BUN/Creatinine Ratio 32.50 H (12.00-20.00) Ratio Calcium 8.3 L (8.7-10.3) mg/dL Microbiology - Last 24 Hours (Table) 02/09/24 17:17 Blood Culture - Preliminary Blood 02/09/24 16:45 Gram Stain - Preliminary Other - Other Wound Culture - Preliminary Presumptive MRSA 02/09/24 13:59 Gram Stain - Preliminary Chest Wound Culture - Preliminary Presumptive MRSA Assessment and Plan (1) Sepsis Current Visit: Yes Status: Acute Code(s): A41.9 - SEPSIS, UNSPECIFIED ORGANISM SNOMED Code(s): 44993031 (2) Allergy to sulfa drugs Current Visit: Yes Status: Acute Code(s): Z88.2 - ALLERGY STATUS TO SULFONAMIDES SNOMED Code(s): 09746009 (3) Incisional infection Current Visit: Yes Status: Acute Code(s): T81.49XA - INFECTION FOLLOWING A PROCEDURE, OTHER SURGICAL SITE, INIT SNOMED Code(s): 71695933 (4) Abscess or cellulitis of chest wall Current Visit: No Status: Acute Code(s): GAK1742 - SNOMED Code(s): 834024974 Plan: 1patient presented to hospital with sepsis in this patient who did have fever tachycardia elevated white count source likely chest wall cellulitis and an abscess with concern for possible deep versus superficial infection and likely from gram-positive skin amador gram-negative infection less likely but not entirely excluded 2-local culture are currently growing MRSA blood culture currently pending ing CT of the chest did not show any drainable abscess 3-patient to continue with vancomycin pharmacy to dose target trough of 15 cefepime has been discontinued will likely need a PICC line and outpatient IV antibiotic there was a concern for possible infected wire in the wound bed discussed with the CT surgery CONVEYOR MAN. Dictation was produced using [employer] dictation software. please excuse any grammatical, word or spelling errors. Time with Patient: Less than 30
--- NOTE | 2024-02-11 15:25 | P.PN ---
Subjective Progress Note Date: 02/11/24 Hospital Course: Patient is a very pleasant 59-year-old male with a past medical history of CAD status post previous stenting and CABG x 1 on 08/31/23, hypertension, hyperlipidemia, anxiety, depression, nicotine and previous alcohol dependence currently living at [facility] facility. He presented to the emergency department with a chief complaint of chest pain. Patient reports midsternal chest pain somewhat ongoing since completion of CABG in August but states it has significantly worsened over the past 2 to 3 days and accompanied by with newly developed mid incisional drainage of thick purulent fluid and surrounding erythema. Patient reports previous infection at same site that was treated with IV antibiotics and he believed fully resolved. He reports abscess returned in same location about 2 to 3 days ago and accompanied by worsening midsternal ch est pain that is reproducible and described as sharp and persistent. He denies having any radiation of pain and denies any associated symptoms including fevers, chills, diaphoresis, palpitations, shortness of breath, cough or congestion, nausea, vomiting, or experiencing any numbness/tingling/weakn ess/swelling in his extremities. Upon arrival to our facility, patient underwent evaluation in the emergency department. Vital signs upon arrival show blood pressure 117/74, heart rate 116, respiratory rate 20, temp 98.0 F, and SpO2 of 98% on room air. EKG completed showing sinus tachycardia at 100 bpm with T wave inversion in inferior and lateral leads II, III, aVF, and V5 and V6. T wave inversion is a new finding when compared to EKG completed 10/22/2023 upon personal review, interpretation, and comparison. Chest x-ray completed negative for acute cardiopulmonary process. Labs completed and reviewed. CBC showing leukocytosis with WBC count of 16.1. Coagulation profile normal findings. BMP unremarkable. Blood glucose 121. Magnesium slightly low at 1.7. Liver profile unremarkable. Troponin was negative at less than 0.012. Patient admitted under our services with consultation to infectious disease, cardiothoracic surgery and cardiology. Troponins were trended all negative at less than 0.012 x 3 draws. Preliminary wound cultures resulting positive for MRSA. Physical exam: Patient seen and fully evaluated at bedside. He reports midsternal chest pain remains unchanged, controlled with current pain medication regimen.. Patient continues to have purulent drainage from wound/abscess however reports that it is improving in amount and frequency.. He denies any other complaints at this time. Vital signs reviewed and stable. General: Nontoxic, no distress and appears stated age. Derm: Skin warm and dry, normal coloration for ethnicity. Head: Atraumatic, normocephalic and symmetric. Eyes: EOM's intact, no lid lag, and anicteric sclera Mouth: no lip lesions, mucus membranes moist Cardiovascular: regular rate and rhythm with normal S1S2, no murmur, positive posterior tibial pulses bilaterally, and cap refill < 2 seconds. Sternal scar appears to be healing well with the exception of inferior border where small abscess is just right of midsternal scar with purulent drainage and surrounding erythema. Lungs: Respirations even, regular, and unlabored on room air. Lungs CTA bilaterally, no rhonchi, no rales, no wheezing, and no accessory muscle usage. Abdominal: soft, nontender to palpation, no guarding, no appreciable organomegaly Ext: ROM intact. No gross muscle atrophy, no edema, no contractures Neuro: Speech clear, face symmetrical and CN II-XII grossly intact with no noted focal neuro deficits Psych: Alert and oriented to person, place, time, and situation. Appropriate and pleasant affect. Assessment and Plan of Care: Superficial Abscess with purulent drainage from midsternal incision site Atypical chest pain, reducible and suspect secondary to above however patient does have newly noted EKG changes in inferior/lateral leads Sepsis upon admission, secondary to above Leukocytosis with pyrexia Status post CABG x 1 on 09/17/23 CAD with previous stenting Hypertension Hyperlipidemia -Preliminary wound cultures positive for MRSA -Blood cultures showing no growth to date. -ESR elevated at 61 and CRP of 13.2. -CT chest with contrast completed showing no definitive organized fluid collection along the incision site on CT imaging, did reveal phlegmmonous changes. -Continue IV antibiotics with vancomycin 1250 mg every 8 hours. Will monitor renal function and vancomycin trough closely for any signs of vancomycin associated renal toxicity. -Infectious disease following and discussed plan of care in detail with infectious disease physician, Dr. Reynolds. -Cardiology consulted s/t reports of chest pain and EKG changes, reviewed documentation in chart -Cardiothoracic surgery consulted, discussed with Cardiothoracic DIAMOND MERCHANT -Telemetry monitoring. -Continue cardiac medication regimen with aspirin 81 mg daily, atorvastatin 40 mg daily, Plavix 75 mg daily, losartan 50 mg daily, amiodarone 200 mg daily, and metoprolol 50 mg twice daily. Anxiety and depression -Continue daily medication regimen with Lexapro 10 mg daily. Nicotine dependence -Strongly recommend smoking cessation. Patient reports he did quit but restarted 2 weeks ago. Order placed for nicotine patch 14 mg daily. Data and imaging reviewed: Labs reviewed. CBC showing improvement of leukocytosis down to 12.16 this morning and stable normocytic anemia with hemoglobin of 12.2. BMP showing mild hyponatremia with sodium of 133. Blood glucose 94. Magnesium 1.8. Vancomycin trough was subtherapeutic at 10.9 and dose increased from 1000 mg every 8 hours to 1250 mg every 8 hours Vital signs reviewed. Temperature high over the past 24 hours is 99.3. Currently blood pressure 144/78, heart rate 96, respiratory rate 16, temp 97.4 F, and SpO2 of 94% on room air. Preliminary wound culture results positive for MRSA CODE STATUS: Full code DVT prophylaxis: Heparin Anticipated discharge date: Pending clinical course Anticipated discharge place: Home Patient was seen independently by Nurse Practitioner. This document was prepared using [employer] dictation software. Please allow for errors in fish technologist while rare they do occur. Geoff Guevara NP rendered care for this patient independently, reviewed the findings and plan as documented in the note above and agree with plan. I did not physically speak with or examine the patient on this date. Objective - Vital Signs Vital signs: Vital Signs Temp 97.4 F L 02/11/24 07:48 Pulse 96 02/11/24 08:03 Resp 16 02/11/24 07:48 BP 144/78 02/11/24 07:48 Pulse Ox 94 L 02/11/24 07:48 FiO2 21 02/10/24 08:31 Intake & Output 02/10/24 02/11/24 02/11/24 18:59 06:59 18:59 Intake Total 694 540 Balance 694 540 Intake: Oral 694 540 Other: Voiding Method Toilet # Voids 2 1 - Labs CBC & Chem 7: 02/11/24 04:11 02/11/24 04:11 Labs: Abnormal Lab Results - Last 24 Hours (Table) 02/10/24 02/10/24 Range/Units 05:32 05:32 WBC 16.18 H (4.50-10.00) X 10*3/uL Hct 39.2 L (39.6-50.0) % RDW 17.2 H (11.5-14.5) % Sodium 134 L (135-145) mmol/L Carbon Dioxide 21.3 L (21.6-31.8) mmol/L Anion Gap 12.70 H (4.00-12.00) mmol/L BUN/Creatinine Ratio 21.14 H (12.00-20.00) Ratio Calcium 8.6 L (8.7-10.3) mg/dL Total Protein 5.7 L (6.2-8.2) g/dL Albumin 3.7 L (3.8-4.9) g/dL Microbiology - Last 24 Hours (Table) 02/09/24 17:17 Blood Culture - Preliminary Blood 02/09/24 16:45 Gram Stain - Preliminary Other - Other Wound Culture - Preliminary Presumptive MRSA 02/09/24 13:59 Gram Stain - Preliminary Chest Wound Culture - Preliminary Presumptive MRSA
[2024-02-12] MEDS: VANCOMYCIN TROUGH DUE 1 EACH MISC MISCELLANE ONE (06:50)
[2024-02-12 07:51] LABS: African American GFR (CKD) >90 (>60 ml/min/1.73 sqM); Anion Gap 7 mmol/L; Blood Urea Nitrogen 20 mg/dL (9-20); Calcium 8.4 mg/dL (8.4-10.2); Carbon Dioxide 23 mmol/L (22-30); Chloride 106 mmol/L (98-107); Glucose 79 mg/dL (74-99); Magnesium 1.8 mg/dL (1.6-2.3); Non-African American GFR(CKD) >90 (>60 ml/min/1.73 sqM); Potassium 3.7 mmol/L (3.5-5.1); Sodium 136 mmol/L (137-145)
[2024-02-12 10:19] LABS: HCT 38.7 % (39.6-50.0); HGB 12.6 g/dL (13.0-17.0); MCH 28.4 pg (27.0-32.0); MCHC 32.6 g/dL (32.0-37.0); MCV 87.2 FL (80.0-97.0); Mean Platelet Volume 11.2 FL (9.5-12.2); NRBC Per 100 WBC 0 X 10*3/uL (0.00-0.01); Platelet Count 229 X 10*3/uL (140-440); RBC 4.44 X 10*6/uL (4.40-5.60); RDW 17.1 % (11.5-14.5); WBC 7.53 X 10*3/uL (4.50-10.00)
--- NOTE | 2024-02-12 12:40 | P.PN ---
Subjective Progress Note Date: 02/12/24 Hospital Course: Patient is a very pleasant 59-year-old male with a past medical history of CAD status post previous stenting and CABG x 1 on 08/31/23, hypertension, hyperlipidemia, anxiety, depression, nicotine and previous alcohol dependence currently living at [facility]. He presented to the emergency department with a chief complaint of chest pain. Patient reports midsternal chest pain somewhat ongoing since completion of CABG in August but states it has significantly worsened over the past 2 to 3 days and accompanied by with newly developed mid incisional drainage of thick purulent fluid and surrounding erythema. Patient reports previous infection at same site that was treated with IV antibiotics and he believed fully resolved. He reports abscess returned in same location about 2 to 3 days ago and accompanied by worsening midsternal ch est pain that is reproducible and described as sharp and persistent. He denies having any radiation of pain and denies any associated symptoms including fevers, chills, diaphoresis, palpitations, shortness of breath, cough or congestion, nausea, vomiting, or experiencing any numbness/tingling/weakn ess/swelling in his extremities. Upon arrival to our facility, patient underwent evaluation in the emergency department. Vital signs upon arrival show blood pressure 117/74, heart rate 116, respiratory rate 20, temp 98.0 F, and SpO2 of 98% on room air. EKG completed showing sinus tachycardia at 100 bpm with T wave inversion in inferior and lateral leads II, III, aVF, and V5 and V6. T wave inversion is a new finding when compared to EKG completed 10/22/2023 upon personal review, interpretation, and comparison. Chest x-ray completed negative for acute cardiopulmonary process. Labs completed and reviewed. CBC showing leukocytosis with WBC count of 16.1. Coagulation profile normal findings. BMP unremarkable. Blood glucose 121. Magnesium slightly low at 1.7. Liver profile unremarkable. Troponin was negative at less than 0.012. Patient admitted under our services with consultation to infectious disease, cardiothoracic surgery and cardiology. Troponins were trended all negative at less than 0.012 x 3 draws. Preliminary wound cultures resulting positive for MRSA. Physical exam: Patient seen and fully evaluated at bedside. He reports midsternal chest pain remains unchanged, controlled with current pain medication regimen.. Patient continues to have purulent drainage from wound/abscess however reports that it is improving in amount and frequency.. He denies any other complaints at this time. Vital signs reviewed and stable. General: Nontoxic, no distress and appears stated age. Derm: Skin warm and dry, normal coloration for ethnicity. Head: Atraumatic, normocephalic and symmetric. Eyes: EOM's intact, no lid lag, and anicteric sclera Mouth: no lip lesions, mucus membranes moist Cardiovascular: regular rate and rhythm with normal S1S2, no murmur, positive posterior tibial pulses bilaterally, and cap refill < 2 seconds. Sternal scar appears to be healing well with the exception of inferior border where small abscess is just right of midsternal scar with purulent drainage and surrounding erythema. Lungs: Respirations even, regular, and unlabored on room air. Lungs CTA bilaterally, no rhonchi, no rales, no wheezing, and no accessory muscle usage. Abdominal: soft, nontender to palpation, no guarding, no appreciable organomegaly Ext: ROM intact. No gross muscle atrophy, no edema, no contractures Neuro: Speech clear, face symmetrical and CN II-XII grossly intact with no noted focal neuro deficits Psych: Alert and oriented to person, place, time, and situation. Appropriate and pleasant affect. Assessment and Plan of Care: MRSA Superficial Abscess with purulent drainage from midsternal incision site Atypical chest pain, reducible and suspect secondary to above however patient does have newly noted EKG changes in inferior/lateral leads Sepsis upon admission, secondary to above Leukocytosis with pyrexia Status post CABG x 1 on 09/17/23 CAD with previous stenting Hypertension Hyperlipidemia -Preliminary wound cultures positive for MRSA -Blood cultures showing no growth to date. -ESR elevated at 61 and CRP of 13.2. -CT chest with contrast completed showing no definitive organized fluid collection along the incision site on CT imaging, did reveal phlegmmonous changes. -Continue IV antibiotics with vancomycin 1250 mg every 8 hours. Will monitor renal function and vancomycin trough closely for any signs of vancomycin associated renal toxicity. -Infectious disease following and discussed plan of care in detail with infectious disease physician, Dr. Reynolds, stating patient will likely need PICC line placement and IV antibiotics at time of discharge expressing concern for possible infected sternal wire in the wound bed and states he also discussed with CT surgery. -Cardiology consulted s/t reports of chest pain and EKG changes, reviewed documentation in chart -Cardiothoracic surgery consulted, discussed with Cardiothoracic RAIL MANAGER -Telemetry monitoring. -Continue cardiac medication regimen with aspirin 81 mg daily, atorvastatin 40 mg daily, Plavix 75 mg daily, losartan 50 mg daily, amiodarone 200 mg daily, and metoprolol 50 mg twice daily. Anxiety and depression -Continue daily medication regimen with Lexapro 10 mg daily. Nicotine dependence -Strongly recommend smoking cessation. Patient reports he did quit but restarted 2 weeks ago. Order placed for nicotine patch 14 mg daily. Data and imaging reviewed: Labs reviewed. CBC showing resolution of leukocytosis with WBC count decreasing from initial 16.18 down to 7.53 this morning and stable normocytic anemia with hemoglobin of 12.6. BMP unremarkable. Blood glucose 79. Magnesium 1.8. Blood cultures showing no growth to date. Vital signs reviewed. Temperature high over the past 24 hours is 98.2. [facility] blood pressure 151/85, heart rate 80, respiratory rate 18, temp 98.2 F, and SpO2 of 95% on room air. Preliminary wound culture results positive for presumptive MRSA CODE STATUS: Full code DVT prophylaxis: Heparin Anticipated discharge date: Pending clinical course Anticipated discharge place: Home Patient was seen independently by Nurse Practitioner. This document was prepared using [employer] dictation software. Please allow for errors in process pumper while rare they do occur. Geoff Guevara NP rendered care for this patient independently, reviewed the findings and plan as documented in the note above and agree with plan. I did not physically speak with or examine the patient on this date. Objective - Vital Signs Vital signs: Vital Signs Temp 98.2 F 02/12/24 07:39 Pulse 80 02/12/24 07:39 Resp 18 02/12/24 07:39 BP 151/85 02/12/24 07:39 Pulse Ox 95 02/12/24 07:39 FiO2 21 02/10/24 08:31 Intake & Output 02/11/24 02/12/24 02/12/24 18:59 06:59 18:59 Intake Total 680 540 Balance 680 540 Intake: Oral 680 540 Other: Voiding Method Toilet # Voids 2 2 1 # Bowel Movements 0 - Labs CBC & Chem 7: 02/12/24 07:06 02/12/24 07:06 Labs: Abnormal Lab Results - Last 24 Hours (Table) 02/11/24 02/12/24 Range/Units 04:11 07:06 Sodium 133 L 136 L (135-145) mmol/L Carbon Dioxide 20.3 L (21.6-31.8) mmol/L Creatinine 0.60 L (0.66-1.25) mg/dL BUN/Creatinine Ratio 32.50 H (12.00-20.00) Ratio Calcium 8.3 L (8.7-10.3) mg/dL Microbiology - Last 24 Hours (Table) 02/09/24 17:17 Blood Culture - Preliminary Blood 02/09/24 16:45 Anaerobic Culture - Preliminary Other - Other
--- NOTE | 2024-02-12 14:33 | P.PN ---
Subjective Progress Note Date: 02/12/24 Principal diagnosis: Superficial sternal incision abscess. Previous medical history of coronary artery disease/unstable angina and previous myocardial infarction's status post multiple stents as well as off-pump CABG 09/17/23, hypertension, hyperlipidemia, chronic ongoing tobacco dependence, marijuana use, previous heavy EtOH use, peripheral arterial disease with claudication, left internal carotid artery stenosis with possible TIA in the past, medical noncompliance, and family history of premature coronary artery disease The patient was seen and examined laying in bed on the observation unit in no acute distress. Denies any pain or shortness of breath at this time although he is not really moving around much. Remains on room air. Superficial sternal wound culture positive for presumptive MRSA, remains on vancomycin per infectious disease. Wound being dressed with Aquacel silver. No other new concerns at this time. Objective - Vital Signs Vital signs: Vital Signs Temp 97.6 F 02/12/24 11:43 Pulse 68 02/12/24 11:43 Resp 17 02/12/24 11:43 BP 134/87 02/12/24 11:43 Pulse Ox 96 02/12/24 11:43 FiO2 21 02/10/24 08:31 Intake & Output 02/11/24 02/12/24 02/12/24 18:59 06:59 18:59 Intake Total 680 540 240 Balance 680 540 240 Intake: Oral 680 540 240 Other: Voiding Method Toilet Toilet # Voids 2 2 1 # Bowel Movements 0 - Exam CONSTITUTIONAL: Appears comfortable, cooperative, no acute distress RESPIRATORY: Lungs sounds diminished bilaterally. Respirations even, nonlabored. Currently on room air with oxygen saturation 96% CARDIOVASCULAR: S1, S2 present. Regular rate and rhythm. Sternum stable. Palpable peripheral pulses bilaterally. No edema present GASTROINTESTINAL: Abdomen soft, nontender, nondistended. Active bowel sounds present 4 quadrants. Tolerating diet GENITOURINARY: Continues to void INTEGUMENTARY: Skin is warm and dry. Anterior chest incision with Aquacel silv er dressing, not removed as the dressing had just been changed and applied in the last couple of hours NEUROLOGIC: Cranial nerves II through XII intact MUSKULOSKELETAL: Able to move all extremities, strength equal bilaterally, gait normal PSYCHIATRIC: Alert and oriented to person place and time, appropriate affect, intact judgment and insight - Allied health notes Allied health notes reviewed: nursing - Labs CBC & Chem 7: 02/12/24 07:06 02/12/24 07:06 Labs: Abnormal Lab Results - Last 24 Hours (Table) 02/12/24 02/12/24 Range/Units 07:06 07:06 Hgb 12.6 L (13.0-17.0) g/dL Hct 38.7 L (39.6-50.0) % RDW 17.1 H (11.5-14.5) % Sodium 136 L (137-145) mmol/L Creatinine 0.60 L (0.66-1.25) mg/dL Microbiology - Last 24 Hours (Table) 02/09/24 17:17 Blood Culture - Preliminary Blood 02/09/24 16:45 Anaerobic Culture - Preliminary Other - Other Assessment and Plan Assessment: Superficial sternal incision wound, preliminary wound culture shows presumptive MRSA, CT scan of the chest did not show any drainable abscess Leukocytosis, likely secondary to above History of coronary artery disease/unstable angina and previous myocardial infarctions status post multiple stents as well as CABG 09/17/23 Hypertension Hyperlipidemia Chronic ongoing tobacco dependence Marijuana use Previous heavy EtOH use, currently living in a sober living environment Peripheral arterial disease with claudication Left internal carotid artery stenosis with possible TIA in the past Medical noncompliance Family history of premature coronary artery disease Plan: Continue wound care as ordered to the sternal incision wound Antibiotic management per infectious disease recommendations. Currently on vancomycin. Continue to monitor daily labs. Continue to reinforce the importance of and encourage smoking sensation. Out of bed for all meals. Increase activity as tolerated. Medical management other comorbidities per internal medicine and infectious disease. More recommendations to follow based on patient's clinical course.
[2024-02-13 08:40] LABS: HCT 37.6 % (39.6-50.0); HGB 12.2 g/dL (13.0-17.0); MCH 27.7 pg (27.0-32.0); MCHC 32.4 g/dL (32.0-37.0); MCV 85.5 FL (80.0-97.0); Mean Platelet Volume 10.6 FL (9.5-12.2); NRBC Per 100 WBC 0 X 10*3/uL (0.00-0.01); Platelet Count 246 X 10*3/uL (140-440); RDW 17.1 % (11.5-14.5); WBC 7.79 X 10*3/uL (4.50-10.00)
[2024-02-13 08:57] LABS: Blood Urea Nitrogen 18.3 mg/dL (9.0-27.0); Calcium 8.5 mg/dL (8.7-10.3); Carbon Dioxide 25.3 mmol/L (21.6-31.8); Chloride 106 mmol/L (96-109); Glucose 103 mg/dL (70-110); Magnesium 1.7 mg/dL (1.5-2.4); Potassium 4.1 mmol/L (3.5-5.5); Sodium 140 mmol/L (135-145)
--- NOTE | 2024-02-13 15:13 | P.PN ---
Subjective Progress Note Date: 02/13/24 Principal diagnosis: Superficial sternal incision abscess. Previous medical history of coronary artery disease/unstable angina and previous myocardial infarction's status post multiple stents as well as off-pump CABG 09/17/23, hypertension, hyperlipidemia, chronic ongoing tobacco dependence, marijuana use, previous heavy EtOH use, peripheral arterial disease with claudication, left internal carotid artery stenosis with possible TIA in the past, medical noncompliance, and family history of premature coronary artery disease The patient was seen and examined laying in bed on the observation unit in no acute distress. Does complain of pain at his wound site, asking for IV narcotics. Remains on room air. Superficial sternal wound culture positive for MRSA, remains on vancomycin per infectious disease. Wound being dressed with Aquacel silver. Our plan is for wound debridement with wound VAC placement tomorrow by Dr. Yap. This was discussed with the patient by Dr. Yap and he is in agreement. Objective - Vital Signs Vital signs: Vital Signs Temp 98.4 F 02/13/24 13:54 Pulse 67 02/13/24 13:54 Resp 18 02/13/24 13:54 BP 135/81 02/13/24 13:54 Pulse Ox 97 02/13/24 13:54 FiO2 21 02/10/24 08:31 Intake & Output 02/12/24 02/13/24 02/13/24 18:59 06:59 18:59 Intake Total 598 800 118 Balance 598 800 118 Intake: Oral 598 800 118 Other: Voiding Method Toilet # Voids 3 3 # Bowel Movements 1 - Exam CONSTITUTIONAL: Appears mostly comfortable, cooperative, no acute distress RESPIRATORY: Lungs sounds diminished bilaterally. Respirations even, nonlabored. Currently on room air with oxygen saturation 97% CARDIOVASCULAR: S1, S2 present. Regular rate and rhythm. Sternum stable. Palpable peripheral pulses bilaterally. No edema present GASTROINTESTINAL: Abdomen soft, nontender, nondistended. Active bowel sounds present 4 quadrants. Tolerating diet GENITOURINARY: Continues to void INTEGUMENTARY: Skin is warm and dry. Anterior chest wound with Aquacel silver dressing, significant purulent drainage NEUROLOGIC: Cranial nerves II through XII intact MUSKULOSKELETAL: Able to move all extremities, strength equal bilaterally, gait normal PSYCHIATRIC: Alert and oriented to person place and time, appropriate affect, intact judgment and insight - Allied health notes Allied health notes reviewed: nursing - Labs CBC & Chem 7: 02/13/24 04:51 02/13/24 04:51 Labs: Abnormal Lab Results - Last 24 Hours (Table) 02/13/24 02/13/24 Range/Units 04:51 04:51 Hgb 12.2 L (13.0-17.0) g/dL Hct 37.6 L (39.6-50.0) % RDW 17.1 H (11.5-14.5) % BUN/Creatinine Ratio 30.50 H (12.00-20.00) Ratio Calcium 8.5 L (8.7-10.3) mg/dL Microbiology - Last 24 Hours (Table) 02/09/24 17:17 Blood Culture - Preliminary Blood 02/09/24 16:45 Gram Stain - Final Other - Other Wound Culture - Final Methicillin resist S. aureus 02/09/24 13:59 Gram Stain - Final Chest Wound Culture - Final Methicillin resist S. aureus Assessment and Plan Assessment: Superficial sternal incision wound, preliminary wound culture shows presumptive MRSA, CT scan of the chest did not show any drainable abscess Leukocytosis, likely secondary to above History of coronary artery disease/unstable angina and previous myocardial infarctions status post multiple stents as well as CABG 09/17/23 Hypertension Hyperlipidemia Chronic ongoing tobacco dependence Marijuana use Previous heavy EtOH use, currently living in a sober living environment Peripheral arterial disease with claudication Left internal carotid artery stenosis with possible TIA in the past Medical noncompliance Family history of premature coronary artery disease Plan: Continue wound care as ordered to the sternal incision wound We plan to take patient to the operating room tomorrow for wound debridement with wound VAC placement by Dr. Yap N.p.o. after midnight Antibiotic management per infectious disease recommendations. Currently on vancomycin. Continue to monitor daily labs. Continue to reinforce the importance of and encourage smoking sensation. Out of bed for all meals. Increase activity as tolerated. Medical management other comorbidities per internal medicine and infectious disease. More recommendations to follow based on patient's clinical course.
--- NOTE | 2024-02-13 16:20 | P.PN ---
Subjective Progress Note Date: 02/13/24 Hospital Course: Patient is a very pleasant 59-year-old male with a past medical history of CAD status post previous stenting and CABG x 1 on 08/31/23, hypertension, hyperlipidemia, anxiety, depression, nicotine and previous alcohol dependence currently living at [facility]. He presented to the emergency department with a chief complaint of chest pain. Patient reports midsternal chest pain somewhat ongoing since completion of CABG in August but states it has significantly worsened over the past 2 to 3 days and accompanied by with newly developed mid incisional drainage of thick purulent fluid and surrounding erythema. Patient reports previous infection at same site that was treated with IV antibiotics and he believed fully resolved. He reports abscess returned in same location about 2 to 3 days ago and accompanied by worsening midsternal ch est pain that is reproducible and described as sharp and persistent. He denies having any radiation of pain and denies any associated symptoms including fevers, chills, diaphoresis, palpitations, shortness of breath, cough or congestion, nausea, vomiting, or experiencing any numbness/tingling/weakn ess/swelling in his extremities. Upon arrival to our facility, patient underwent evaluation in the emergency department. Vital signs upon arrival show blood pressure 117/74, heart rate 116, respiratory rate 20, temp 98.0 F, and SpO2 of 98% on room air. EKG completed showing sinus tachycardia at 100 bpm with T wave inversion in inferior and lateral leads II, III, aVF, and V5 and V6. T wave inversion is a new finding when compared to EKG completed 10/22/2023 upon personal review, interpretation, and comparison. Chest x-ray completed negative for acute cardiopulmonary process. Labs completed and reviewed. CBC showing leukocytosis with WBC count of 16.1. Coagulation profile normal findings. BMP unremarkable. Blood glucose 121. Magnesium slightly low at 1.7. Liver profile unremarkable. Troponin was negative at less than 0.012. Patient admitted under our services with consultation to infectious disease, cardiothoracic surgery and cardiology. Troponins were trended all negative at less than 0.012 x 3 draws. Preliminary wound cultures resulting positive for MRSA. Physical exam: Patient seen and fully evaluated at bedside. He reports midsternal chest pain somewhat improved today. Dressing to midsternal chest is clean, dry, and intact at this time. Patient updated on plan for PICC line placement and need for discharge home on IV antibiotics. Discussed with patient cardiothoracic surgery is planned for debridement of wound. All questions answered at this time. food concession manager/social work updated on plan. Vital signs reviewed and stable. General: Nontoxic, no distress and appears stated age. Derm: Skin warm and dry, normal coloration for ethnicity. Head: Atraumatic, normocephalic and symmetric. Eyes: EOM's intact, no lid lag, and anicteric sclera Mouth: no lip lesions, mucus membranes moist Cardiovascular: regular rate and rhythm with normal S1S2, no murmur, positive posterior tibial pulses bilaterally, and cap refill < 2 seconds. Sternal scar appears to be healing well with the exception of inferior border where small abscess is just right of midsternal scar with purulent drainage and surrounding erythema. Lungs: Respirations even, regular, and unlabored on room air. Lungs CTA bilaterally, no rhonchi, no rales, no wheezing, and no accessory muscle usage. Abdominal: soft, nontender to palpation, no guarding, no appreciable organomegaly Ext: ROM intact. No gross muscle atrophy, no edema, no contractures Neuro: Speech clear, face symmetrical and CN II-XII grossly intact with no noted focal neuro deficits Psych: Alert and oriented to person, place, time, and situation. Appropriate and pleasant affect. Assessment and Plan of Care: MRSA Superficial Abscess with purulent drainage from midsternal incision site Atypical chest pain, reducible and suspect secondary to above however patient does have newly noted EKG changes in inferior/lateral leads Sepsis upon admission, secondary to above Leukocytosis with pyrexia Status post CABG x 1 on 09/17/23 CAD with previous stenting Hypertension Hyperlipidemia -Wound cultures positive for MRSA -Blood cultures showing no growth to date. -Order placed for PICC line, -Infectious disease following.Discussed with infectious disease physician, Dr. Reynolds, stating patient will require 6-week course of IV antibiotics upon discharge. -Cardiothoracic surgery following planning to take patient 2 OR tomorrow morning for debridement and wound VAC placement with Dr. Yap. -Continue IV antibiotics with vancomycin 1250 mg every 8 hours. Will monitor renal function and vancomycin trough closely for any signs of vancomycin associated renal toxicity. Vancomycin trough therapeutic at 17.4. -Cardiology evaluated for reports of chest pain and EKG changes, stating no further cardiac workup recommended at this time and cardiology signing off patient clearing patient from their perspective. -Telemetry monitoring. -Continue cardiac medication regimen with aspirin 81 mg daily, atorvastatin 40 mg daily, Plavix 75 mg daily, losartan 50 mg daily, amiodarone 200 mg daily, and metoprolol 50 mg twice daily. Anxiety and depression -Continue daily medication regimen with Lexapro 10 mg daily. Nicotine dependence -Strongly recommend smoking cessation. Patient reports he did quit but restarte d 2 weeks ago. Order placed for nicotine patch 14 mg daily. Data and imaging reviewed: Labs reviewed. CBC showing stable normocytic anemia with hemoglobin of 12.2. BMP unremarkable. Blood glucose 103. Blood cultures showing no growth to date. Wound culture results positive for MRSA Vital signs reviewed. Blood pressure 153/96, heart rate 66, respiratory rate 15, temp 98.2 F, and SpO2 of 96% on room air. CODE STATUS: Full code DVT prophylaxis: Heparin Anticipated discharge date: Pending clinical course Anticipated discharge place: Home with extended course of IV antibiotics Patient was seen independently by Nurse Practitioner. This document was prepared using [employer] dictation software. Please allow for errors in mid level business analyst while rare they do occur. Geoff Guevara NP rendered care for this patient independently, reviewed the findin gs and plan as documented in the note above and agree with plan. I did not physically speak with or examine the patient on this date. Objective - Vital Signs Vital signs: Vital Signs Temp 98.2 F 02/13/24 07:53 Pulse 66 02/13/24 07:53 Resp 15 02/13/24 07:53 BP 153/96 02/13/24 07:53 Pulse Ox 96 02/13/24 07:53 FiO2 21 02/10/24 08:31 Intake & Output 02/12/24 02/13/24 02/13/24 18:59 06:59 18:59 Intake Total 598 800 Balance 598 800 Intake: Oral 598 800 Other: Voiding Method Toilet # Voids 3 3 # Bowel Movements 1 - Labs CBC & Chem 7: 02/13/24 04:51 02/13/24 04:51 Labs: Abnormal Lab Results - Last 24 Hours (Table) 02/12/24 Range/Units 07:06 Hgb 12.6 L (13.0-17.0) g/dL Hct 38.7 L (39.6-50.0) % RDW 17.1 H (11.5-14.5) % Microbiology - Last 24 Hours (Table) 02/09/24 17:17 Blood Culture - Preliminary Blood 02/09/24 16:45 Gram Stain - Final Other - Other Wound Culture - Final Methicillin resist S. aureus 02/09/24 13:59 Gram Stain - Final Chest Wound Culture - Final Methicillin resist S. aureus
--- NOTE | 2024-02-13 23:08 | P.PN ---
Subjective Progress Note Date: 02/12/24 Principal diagnosis: Reason for follow-up is a sepsis and chest wall cellulitis Patient is a 59-year-old male with a past medical history negative for hypertension hyperlipidemia SD coronary artery disease in this patient who is status post single-vessel off-pump CABG on September 17, 2023 presenting to the hospital with increasing swelling and redness and drainage noted of incision. On today's evaluation that is 02/12/2024, the patient continues to be afebrile, the patient is on room air and breathing comfortably, the Pt lower chest pain has decreased intensity and denies cough, the patient denies having any abdominal pain no vomiting or any diarrhea. Patient white count normalized to 7.53, creatinine 0.60 Objective - Vital Signs Vital signs: Vital Signs Temp 98.2 F 02/12/24 07:39 Pulse 80 02/12/24 07:39 Resp 18 02/12/24 07:39 BP 151/85 02/12/24 07:39 Pulse Ox 95 02/12/24 07:39 FiO2 21 02/10/24 08:31 Intake & Output 02/11/24 02/12/24 02/12/24 18:59 06:59 18:59 Intake Total 680 540 Balance 680 540 Intake: Oral 680 540 Other: Voiding Method Toilet # Voids 2 2 1 # Bowel Movements 0 - Exam GENERAL DESCRIPTION: Middle-age male lying in bed in no distress RESPIRATORY SYSTEM: Unlabored breathing , decreased breath sounds at bases HEART: S1 S2 regular rate and rhythm , chest wall wound is currently dressed ABDOMEN: Soft , no tenderness EXTREMITIES: No edema feet - Labs CBC & Chem 7: 02/13/24 04:51 02/13/24 04:51 Labs: Abnormal Lab Results - Last 24 Hours (Table) 02/12/24 02/12/24 Range/Units 07:06 07:06 Hgb 12.6 L (13.0-17.0) g/dL Hct 38.7 L (39.6-50.0) % RDW 17.1 H (11.5-14.5) % Sodium 136 L (137-145) mmol/L Creatinine 0.60 L (0.66-1.25) mg/dL Microbiology - Last 24 Hours (Table) 02/09/24 17:17 Blood Culture - Preliminary Blood 02/09/24 16:45 Anaerobic Culture - Preliminary Other - Other Assessment and Plan (1) Sepsis Current Visit: Yes Status: Acute Code(s): A41.9 - SEPSIS, UNSPECIFIED ORGANISM SNOMED Code(s): 74126008 (2) Allergy to sulfa drugs Current Visit: Yes Status: Acute Code(s): Z88.2 - ALLERGY STATUS TO SULFONAMIDES SNOMED Code(s): 26953369 (3) Incisional infection Current Visit: Yes Status: Acute Code(s): T81.49XA - INFECTION FOLLOWING A PROCEDURE, OTHER SURGICAL SITE, INIT SNOMED Code(s): 94124930 (4) Abscess or cellulitis of chest wall Current Visit: No Status: Acute Code(s): KJR0199 - SNOMED Code(s): 064890681 Plan: 1patient presented to hospital with sepsis in this patient who did have fever tachycardia elevated white count source likely chest wall cellulitis and an abscess with concern for possible deep versus superficial infection and likely from gram-positive skin amador gram-negative infection less likely but not entirely excluded 2-local culture are currently growing MRSA blood culture so far negative, CT of the chest did not show any drainable abscess 3-patient to continue with vancomycin pharmacy to dose target trough of 15, he will benefit from surgical debridement and removal of any infected wires in order to completely cure of this infection CT surgery is following Dictation was produced using [employer] dictation software. please excuse any grammatical, word or spelling errors. Time with Patient: Less than 30
--- NOTE | 2024-02-13 23:09 | P.PN ---
Subjective Progress Note Date: 02/13/24 Principal diagnosis: Reason for follow-up is a sepsis and chest wall cellulitis Patient is a 59-year-old male with a past medical history negative for hypertension hyperlipidemia AL coronary artery disease in this patient who is status post single-vessel off-pump CABG on September 17, 2023 presenting to the hospital with increasing swelling and redness and drainage noted of incision. On today's evaluation that is 02/13/2024, Patient is afebrile patient is currently on room air and denies having any shortness of breath, the patient lower chest pain has decreased in intensity and denies any further drainage or cough, the patient denies any nausea vomiting did not have any abdominal pain and no diarrhea. Patient white count 7.79 creatinine 0.6 blood culture have been negative local culture with MRSA anaerobe cultures are negative Objective - Vital Signs Vital signs: Vital Signs Temp 98.2 F 02/13/24 07:53 Pulse 66 02/13/24 07:53 Resp 15 02/13/24 07:53 BP 153/96 02/13/24 07:53 Pulse Ox 96 02/13/24 07:53 FiO2 21 02/10/24 08:31 Intake & Output 02/12/24 02/13/24 02/13/24 18:59 06:59 18:59 Intake Total 598 800 Balance 598 800 Intake: Oral 598 800 Other: Voiding Method Toilet # Voids 3 3 # Bowel Movements 1 - Exam GENERAL DESCRIPTION: Middle-age male lying in bed in no distress RESPIRATORY SYSTEM: Unlabored breathing , decreased breath sounds at bases HEART: S1 S2 regular rate and rhythm , chest wall wound is currently dressed ABDOMEN: Soft , no tenderness EXTREMITIES: No edema feet - Labs CBC & Chem 7: 02/13/24 04:51 02/13/24 04:51 Labs: Abnormal Lab Results - Last 24 Hours (Table) 02/13/24 02/13/24 Range/Units 04:51 04:51 Hgb 12.2 L (13.0-17.0) g/dL Hct 37.6 L (39.6-50.0) % RDW 17.1 H (11.5-14.5) % BUN/Creatinine Ratio 30.50 H (12.00-20.00) Ratio Calcium 8.5 L (8.7-10.3) mg/dL Microbiology - Last 24 Hours (Table) 02/09/24 17:17 Blood Culture - Preliminary Blood 02/09/24 16:45 Gram Stain - Final Other - Other Wound Culture - Final Methicillin resist S. aureus 02/09/24 13:59 Gram Stain - Final Chest Wound Culture - Final Methicillin resist S. aureus Assessment and Plan (1) Sepsis Current Visit: Yes Status: Acute Code(s): A41.9 - SEPSIS, UNSPECIFIED ORGANISM SNOMED Code(s): 76443521 (2) Allergy to sulfa drugs Current Visit: Yes Status: Acute Code(s): Z88.2 - ALLERGY STATUS TO SULFONAMIDES SNOMED Code(s): 84050184 (3) Incisional infection Current Visit: Yes Status: Acute Code(s): T81.49XA - INFECTION FOLLOWING A PROCEDURE, OTHER SURGICAL SITE, INIT SNOMED Code(s): 90506369 (4) Abscess or cellulitis of chest wall Current Visit: No Status: Acute Code(s): UOG5141 - SNOMED Code(s): 390296686 Plan: 1patient presented to hospital with sepsis in this patient who did have fever tachycardia elevated white count source likely chest wall cellulitis and an abscess with concern for possible deep versus superficial infection and likely from gram-positive skin amador gram-negative infection less likely but not entirely excluded 2-local culture are currently growing MRSA blood culture so far negative, CT of the chest did not show any drainable abscess 3-CT surgery is planning for surgical debridement and removal of any infected wires along with wound VAC placement as per discussion with the nursing staff 4-PICC line can be placed as the patient not bacteremic and will continue with the vancomycin and also arrange for outpatient antibiotics in the form of daptomycin Dictation was produced using [employer] dictation software. please excuse any grammatical, word or spelling errors. Time with Patient: Less than 30
[2024-02-13] MEDS: MELATONIN 3 MG TABLET PO PRN (23:55)
[2024-02-14] MEDS: VANCOMYCIN TROUGH DUE 1 EACH MISC MISCELLANE ONE (08:47)
[2024-02-14 09:29] LABS: ALT 17 U/L (4-49); AST 19 U/L (17-59); African American GFR (CKD) >90 (>60 ml/min/1.73 sqM); Albumin 3.1 g/dL (3.5-5.0); Albumin/Globulin Ratio 1.3; Alkaline Phosphatase 80 U/L (38-126); Anion Gap 6 mmol/L; Blood Urea Nitrogen 13 mg/dL (9-20); Calcium 8.6 mg/dL (8.4-10.2); Carbon Dioxide 25 mmol/L (22-30); Chloride 105 mmol/L (98-107); Globulin 2.4 g/dL; Glucose 84 mg/dL (74-99); Magnesium 1.7 mg/dL (1.6-2.3); Non-African American GFR(CKD) >90 (>60 ml/min/1.73 sqM); Sodium 136 mmol/L (137-145); Total Bilirubin 0.4 mg/dL (0.2-1.3); Total Protein 5.5 g/dL (6.3-8.2)
[2024-02-14 10:45] LABS: HCT 38.1 % (39.6-50.0); HGB 12.3 g/dL (13.0-17.0); MCH 27.5 pg (27.0-32.0); MCHC 32.3 g/dL (32.0-37.0); Mean Platelet Volume 10.1 FL (9.5-12.2); NRBC Per 100 WBC 0 X 10*3/uL (0.00-0.01); Platelet Count 248 X 10*3/uL (140-440); RBC 4.48 X 10*6/uL (4.40-5.60); RDW 16.7 % (11.5-14.5)
--- NOTE | 2024-02-14 11:41 | P.PN ---
Subjective Progress Note Date: 02/14/24 Hospital Course: Patient is a very pleasant 59-year-old male with a past medical history of CAD status post previous stenting and CABG x 1 on 08/31/23, hypertension, hyperlipidemia, anxiety, depression, nicotine and previous alcohol dependence currently living at [facility] facility. He presented to the emergency department with a chief complaint of chest pain. Patient reports midsternal chest pain somewhat ongoing since completion of CABG in August but states it has significantly worsened over the past 2 to 3 days and accompanied by with newly developed mid incisional drainage of thick purulent fluid and surrounding erythema. Patient reports previous infection at same site that was treated with IV antibiotics and he believed fully resolved. He reports abscess returned in same location about 2 to 3 days ago and accompanied by worsening midsternal chest pain that is reproducible and described as sharp and persistent. He denies having any radiation of pain and denies any associated symptoms including fevers, chills, diaphoresis, palpitations, shortness of breath, cough or congestion, nausea, vomiting, or experiencing any numbness/tingling/weakness/swelling in his extremities. Upon arrival to our facility, patient underwent evaluation in the emergency department. Vital signs upon arrival show blood pressure 117/74, heart rate 116, respiratory rate 20, temp 98.0 F, and SpO2 of 98% on room air. EKG completed showing sinus tachycardia at 100 bpm with T wave inversion in inferior and lateral leads II, III, aVF, and V5 and V6. T wave inversion is a new finding when compared to EKG completed 10/22/2023 upon personal review, interpretation, and comparison. Chest x-ray completed negative for acute cardiopulmonary process. Labs completed and reviewed. CBC showing leukocytosis with WBC count of 16.1. Coagulation profile normal findings. BMP unremarkable. Blood glucose 121. Magnesium slightly low at 1.7. Liver profile unremarkable. Troponin was negative at less than 0.012. Patient admitted under our services with consultation to infectious disease, cardiothoracic surgery and cardiology. Troponins were trended all negative at less than 0.012 x 3 draws. Preliminary wound cultures resulting positive for MRSA. Patient seen this morning. He denies any acute complaints. No other acute issues overnight. Patient is aware that he will be going for surgery today. Physical exam General examination - Alert and Oriented 3 in NAD Heart - + S1S2 no murmurs CHEST: Surgical incision mid chest with surrounding erythema. 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 Sepsis upon admission, secondary to above Leukocytosis with pyrexia; resolved Status post CABG x 1 on 09/17/23 CAD with previous stenting Hypertension Hyperlipidemia -Wound cultures positive for MRSA -Blood cultures showing no growth to date. -PICC line placed on 02/13/2024 -Infectious disease following.Discussed with infectious disease physician, Dr. Reynolds, stating patient will require 6-week course of IV antibiotics upon discharge. Patient will be discharged on daptomycin in the outpatient setting. -Cardiothoracic surgery following planning to take patient to OR today for debridement and wound VAC placement with Dr. Yap. -Continue IV antibiotics with vancomycin 1250 mg every 8 hours. Will monitor renal function and vancomycin trough closely for any signs of vancomycin associated renal toxicity. Vancomycin trough therapeutic at 17.5. Creatinine t his morning is 0.6 -Telemetry monitoring. -Continue cardiac medication regimen with aspirin 81 mg daily, atorvastatin 40 mg daily, Plavix 75 mg daily, losartan 50 mg daily, amiodarone 200 mg daily, and metoprolol 50 mg twice daily. Anxiety and depression -Continue daily medication regimen with Lexapro 10 mg daily. Nicotine dependence -Strongly recommend smoking cessation. Patient reports he did quit but restarted 2 weeks ago. Order placed for nicotine patch 14 mg daily. CODE STATUS: Full code DVT prophylaxis: Heparin Anticipated discharge date: Pending clinical course Anticipated discharge place: Home with extended course of IV antibiotics Objective - Vital Signs Vital signs: Vital Signs Temp 97.9 F 02/14/24 07:19 Pulse 69 02/14/24 07:19 Resp 16 02/14/24 07:19 BP 161/78 02/14/24 07:19 Pulse Ox 96 02/14/24 07:19 FiO2 21 02/10/24 08:31 Intake & Output 02/13/24 02/14/24 02/14/24 18:59 06:59 18:59 Intake Total 458 Balance 458 Intake: Oral 458 Other: Voiding Method Toilet # Voids 3 1 # Bowel Movements 1 - Labs CBC & Chem 7: 02/14/24 07:00 02/14/24 07:00 Labs: Abnormal Lab Results - Last 24 Hours (Table) 02/14/24 02/14/24 Range/Units 07:00 07:00 Hgb 12.3 L (13.0-17.0) g/dL Hct 38.1 L (39.6-50.0) % RDW 16.7 H (11.5-14.5) % Sodium 136 L (137-145) mmol/L Creatinine 0.60 L (0.66-1.25) mg/dL Total Protein 5.5 L (6.3-8.2) g/dL Albumin 3.1 L (3.5-5.0) g/dL Microbiology - Last 24 Hours (Table) 02/09/24 16:45 Anaerobic Culture - Final Other - Other
--- NOTE | 2024-02-14 12:39 | P.PN ---
Subjective Progress Note Date: 02/14/24 Principal diagnosis: Reason for follow-up is a sepsis and chest wall cellulitis Patient is a 59-year-old male with a past medical history negative for hypertension hyperlipidemia NE coronary artery disease in this patient who is status post single-vessel off-pump CABG on September 17, 2023 presenting to the hospital with increasing swelling and redness and drainage noted of incision. On today's evaluation that is 02/14/2024, patient has been afebrile, patient is breathing comfortably and is currently on room air, patient denies having any worsening central chest pain no cough no nausea vomiting no abdominal pain or diarrhea. Patient white count 6.90, creatinine 0.6, vancomycin trough is 17.5 blood culture remains to be negative Objective - Vital Signs Vital signs: Vital Signs Temp 97.9 F 02/14/24 07:19 Pulse 69 02/14/24 07:19 Resp 16 02/14/24 07:19 BP 161/78 02/14/24 07:19 Pulse Ox 96 02/14/24 07:19 FiO2 21 02/10/24 08:31 Intake & Output 02/13/24 02/14/24 02/14/24 18:59 06:59 18:59 Intake Total 458 Balance 458 Weight 58.967 kg Intake: Oral 458 Other: Voiding Method Toilet # Voids 3 1 1 # Bowel Movements 1 - Exam GENERAL DESCRIPTION: Middle-age male lying in bed in no distress RESPIRATORY SYSTEM: Unlabored breathing , decreased breath sounds at bases HEART: S1 S2 regular rate and rhythm , chest wall wound is currently dressed ABDOMEN: Soft , no tenderness EXTREMITIES: No edema feet - Labs CBC & Chem 7: 02/14/24 07:00 02/14/24 07:00 Labs: Abnormal Lab Results - Last 24 Hours (Table) 02/14/24 02/14/24 Range/Units 07:00 07:00 Hgb 12.3 L (13.0-17.0) g/dL Hct 38.1 L (39.6-50.0) % RDW 16.7 H (11.5-14.5) % Sodium 136 L (137-145) mmol/L Creatinine 0.60 L (0.66-1.25) mg/dL Total Protein 5.5 L (6.3-8.2) g/dL Albumin 3.1 L (3.5-5.0) g/dL Microbiology - Last 24 Hours (Table) 02/09/24 16:45 Anaerobic Culture - Final Other - Other Assessment and Plan (1) Sepsis Current Visit: Yes Status: Acute Code(s): A41.9 - SEPSIS, UNSPECIFIED ORGANISM SNOMED Code(s): 25091526 (2) Allergy to sulfa drugs Current Visit: Yes Status: Acute Code(s): Z88.2 - ALLERGY STATUS TO SULFONAMIDES SNOMED Code(s): 37252427 (3) Incisional infection Current Visit: Yes Status: Acute Code(s): T81.49XA - INFECTION FOLLOWING A PROCEDURE, OTHER SURGICAL SITE, INIT SNOMED Code(s): 02834125 (4) Abscess or cellulitis of chest wall Current Visit: No Status: Acute Code(s): NKI5816 - SNOMED Code(s): 788680353 Plan: 1patient presented to hospital with sepsis in this patient who did have fever tachycardia elevated white count source likely chest wall cellulitis and an abscess with concern for possible deep versus superficial infection and likely from gram-positive skin amador gram-negative infection less likely but not entirely excluded 2-local culture are currently growing MRSA blood culture so far negative, CT of the chest did not show any drainable abscess 3-CT surgery is planning for surgical debridement and removal of any infected wires along with wound VAC placement scheduled for today 4-patient will continue with vancomycin pharmacy to dose creatinine is normal Vanco trough is therapeutic Dictation was produced using [employer] dictation software. please excuse any grammatical, word or spelling errors. Time with Patient: Less than 30
[2024-02-14] MEDS: IV FLUID CONTINUATION 1,000 ML IV ONE (12:48)
[2024-02-14] MEDS ORDERED: LIDOCAINE 4% LTA KIT (4 ML) TOPICAL ONE (14:07)
[2024-02-14] MEDS ORDERED: PHENYLEPHRINE 10 MG/ML VIAL ONE (14:07)
[2024-02-14] MEDS ORDERED: SUCCINYLCHOLINE CHLORIDE 200 MG/10 ML VIAL IV ONE (14:07)
[2024-02-14] MEDS ORDERED: WATER FOR INJECTION, STERILE 10 ML VIAL IV ONE (14:07)
[2024-02-14] MEDS ORDERED: MIDAZOLAM 2 MG/2 ML VIAL ONE (14:07)
[2024-02-14] MEDS ORDERED: PROPOFOL 10 MG/ML 20 ML VIAL IV ONE (14:07)
[2024-02-14] MEDS ORDERED: fentaNYL (PF) 50 MCG/ML 2 ML AMP ONE (14:07)
[2024-02-14] MEDS ORDERED: LIDOCAINE 1% INJ 10MG/ML (20 ML MDV) ONE (14:07)
--- NOTE | 2024-02-14 14:59 | P.OP ---
Date of Procedure: 02/14/24 Preoperative Diagnosis: Superficially infected sternal wound Postoperative Diagnosis: Same Procedure(s) Performed: Sternal debridement, removal of sternal cables system, placement of wound VAC Anesthesia: KEYANNAA Surgeon: Jorge Yap Estimated Blood Loss (ml): 10 IV fluids (ml): 200 Pathology: other (Sternal debridement) Condition: stable Disposition: PACU Indications for Procedure: 59-year-old male status post coronary artery bypass grafting in August by Dr. Lb Dee. Patient apparently had some drainage from the sternum that was being treated by Dr. Dee prior to his departure in early October. Patient was lost to follow-up. Patient was homeless for a period of time. Patient is currently in some type of assisted. He presented with fever and drainage from the sternal wound. CT scan demonstrated no evidence of mediastinal or deep absc ess. 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 There was drainage which increased during his hospital stay despite appropriate antibiotic therapy with vancomycin for documented MRSA infection. Operative Findings: There were pockets of pus subcutaneously all along the sternal incision. They reached down to the sternal cable system. The sternum itself was stable. There was no evidence of deep extension of the infection through or beneath the sternum. Description of Procedure: Patient was brought to the operating room placed supine on the operating table. General anesthesia was induced. An area of the sternal wound was sterilely prepped and draped. The sternal wound was opened in sections and pockets of pus were found all along the entire sternal wound. Eventually we open the entire sternal wound. The underlying cables were exposed and bathed with pus. One by one they were all identified and cut and removed. Total of 5 cables were removed. The wound was aggressively debrided using a curette. Debrided tissue was sent as sternal debridement. The wound was irrigated and hemostasis obtained. We cut a piece of horn wound VAC foam to an appropriate size and shape and packed the wound with this. Wound VAC dressing was applied over this. Good suction was obtained. Patient was awakened and transferred to recovery.
[2024-02-14] MEDS: ESCITALOPRAM 10 MG TAB PO SCH (21:15)
[2024-02-15 07:55] LABS: African American GFR (CKD) >90 (>60 ml/min/1.73 sqM); Non-African American GFR(CKD) >90 (>60 ml/min/1.73 sqM)
--- NOTE | 2024-02-15 08:21 | P.PN ---
Subjective Progress Note Date: 02/15/24 Principal diagnosis: Superficial sternal incision abscess. Previous medical history of coronary artery disease/unstable angina and previous myocardial infarction's status post multiple stents as well as off-pump CABG 09/17/23, hypertension, hyperlipidemia, chronic ongoing tobacco dependence, marijuana use, previous heavy EtOH use, peripheral arterial disease with claudication, left internal carotid artery stenosis with possible TIA in the past, medical noncompliance, and family history of premature coronary artery disease POD #1 sternal debridement, removal of sternal cables system, placement of wound VAC The patient was seen and examined this morning sitting up in recliner on the cardiac stepdown unit in no acute distress. Remains in sinus rhythm, hemodynamically stable. Remains on room air. Pain controlled with current medication regimen. Patient underwent debridement with removal of his sternal cables and placement of wound VAC yesterday, wound VAC currently functioning and patient states that his pain has lessened. Will change wound VAC today. Patient ambulatory without difficulty. We did discuss with the patient that likely returning to a sober living facility would not be ideal with wound VAC in place which will need to be changed Saturday, Saturday, Saturday as well as IV antibiotics through PICC line. Would recommend patient go to rehab at [facility], patient verbalized understanding. No other new concerns. Objective - Vital Signs Vital signs: Vital Signs Temp 98.2 F 02/15/24 03:20 Pulse 73 02/15/24 03:20 Resp 16 02/15/24 03:20 BP 166/90 02/15/24 03:20 Pulse Ox 96 02/15/24 03:20 FiO2 21 02/10/24 08:31 Intake & Output 02/14/24 02/15/24 02/15/24 18:59 06:59 18:59 Intake Total 736 60 236 Output Total 10 1500 Balance 726 -1440 236 Weight 58.967 kg Intake: IV 500 60 0.9 60 Oral 236 236 Output: Urine 1500 Estimated Blood Loss 10 Other: Voiding Method Toilet Urinal # Voids 1 1 - Exam CONSTITUTIONAL: Appears comfortable, cooperative, no acute distress RESPIRATORY: Lungs sounds diminished bilaterally. Respirations even, nonlabor ed. Currently on room air with oxygen saturation 96% CARDIOVASCULAR: S1, S2 present. Regular rate and rhythm. Sternum stable. Palpable peripheral pulses bilaterally. No edema present GASTROINTESTINAL: Abdomen soft, nontender, nondistended. Active bowel sounds present 4 quadrants. Tolerating diet GENITOURINARY: Continues to void INTEGUMENTARY: Skin is warm and dry. Wound VAC in place over anterior chest wall, abdominal binder on around the chest for support NEUROLOGIC: Cranial nerves II through XII intact MUSKULOSKELETAL: Able to move all extremities, strength equal bilaterally, gait normal PSYCHIATRIC: Alert and oriented to person place and time, appropriate affect, intact judgment and insight INVASIVE LINES: Right antecubital PICC line present - Allied health notes Allied health notes reviewed: nursing - Labs CBC & Chem 7: 02/14/24 07:00 02/15/24 07:15 Labs: Abnormal Lab Results - Last 24 Hours (Table) 02/14/24 02/14/24 02/15/24 Range/Units 07:00 07:00 07:15 Hgb 12.3 L (13.0-17.0) g/dL Hct 38.1 L (39.6-50.0) % RDW 16.7 H (11.5-14.5) % Sodium 136 L (137-145) mmol/L Creatinine 0.60 L 0.58 L (0.66-1.25) mg/dL Total Protein 5.5 L (6.3-8.2) g/dL Albumin 3.1 L (3.5-5.0) g/dL Microbiology - Last 24 Hours (Table) 02/09/24 17:17 Blood Culture - Final Blood Assessment and Plan Assessment: Superficial sternal incision wound, preliminary wound culture shows presumptive MRSA, CT scan of the chest did not show any drainable abscess, status post debridement, removal of cables, wound VAC placement Leukocytosis, likely secondary to above History of coronary artery disease/unstable angina and previous myocardial infarctions status post multiple stents as well as CABG 09/17/23 Hypertension Hyperlipidemia Chronic ongoing tobacco dependence Marijuana use Previous heavy EtOH use, currently living in a sober living environment Peripheral arterial disease with claudication Left internal carotid artery stenosis with possible TIA in the past Medical noncompliance Family history of premature coronary artery disease Plan: Will change wound VAC today Antibiotic management per infectious disease recommendations. Currently on vancomycin. Continue to reinforce the importance of and encourage smoking sensation. Out of bed for all meals. Increase activity as tolerated. Medical management other comorbidities per internal medicine and infectious disease. Patient will likely need rehab at discharge for management of wound VAC as well as IV antibiotics through PICC line Transfer orders placed for [facility] without telemetry, transfer patient when bed available. Patient does not need 3 S. bed More recommendations to follow based on patient's clinical course.
[2024-02-15] MEDS: HYDROmorphone 0.5 MG/0.5 ML SYRINGE IVP STA (09:01)
[2024-02-15] MEDS: polyethylene glycoL 3350 17 GM POWD.PACK PO SCH (12:13)
--- NOTE | 2024-02-15 13:01 | P.PN ---
Subjective Progress Note Date: 02/15/24 Hospital Course: Patient is a very pleasant 59-year-old male with a past medical history of CAD status post previous stenting and CABG x 1 on 08/31/23, hypertension, hyperlipidemia, anxiety, depression, nicotine and previous alcohol dependence currently living at clean living facility. He presented to the emergency department with a chief complaint of chest pain. Patient reports midsternal ch est pain somewhat ongoing since completion of CABG in August but states it has significantly worsened over the past 2 to 3 days and accompanied by with newly developed mid incisional drainage of thick purulent fluid and surrounding erythema. Patient reports previous infection at same site that was treated with IV antibiotics and he believed fully resolved. He reports abscess returned in same location about 2 to 3 days ago and accompanied by worsening midsternal chest pain that is reproducible and described as sharp and persistent. He denies having any radiation of pain and denies any associated symptoms including fevers, chills, diaphoresis, palpitations, shortness of breath, cough or conge stion, nausea, vomiting, or experiencing any numbness/tingling/weakness/swelling in his extremities. Upon arrival to our facility, patient underwent evaluation in the emergency department. Vital signs upon arrival show blood pressure 117/74, heart rate 116, respiratory rate 20, temp 98.0 F, and SpO2 of 98% on room air. EKG completed showing sinus tachycardia at 100 bpm with T wave inversion in inferior and lateral leads II, III, aVF, and V5 and V6. T wave inversion is a new finding when compared to EKG completed 10/22/2023 upon personal review, interpretation, and comparison. Chest x-ray completed negative for acute cardiopulmonary process. Labs completed and reviewed. CBC showing leukocytosis with WBC count of 16.1. Coagulation profile normal findings. BMP unremarkable. Blood glucose 121. Magnesium slightly low at 1.7. Liver profile unremarkable. Troponin was negative at less than 0.012. Patient admitted under our services with consultation to infectious disease, cardiothoracic surgery and cardiology. Troponins were trended all negative at less than 0.012 x 3 draws. Preliminary wound cultures resulting positive for MRSA. Patient is now status post I&D and debridement. Status post wound VAC. Subjective: Seen and examined at bedside. No acute events overnight. Pertinent positives and negatives as discussed above, a complete review of systems was performed and all other systems are negative. Vitals Signs Reviewed. General: Nontoxic, no distress, appears at stated age Derm: Warm, dry, wound VAC in place Head: Atraumatic, normocephalic, symmetric Eyes: EOMI, no lid lag, anicteric sclera Mouth: No lip lesion, mucus membranes moist Cardiovascular: S1S2 reg, no murmur Lungs: CTA bilateral, no rhonchi, no rales, no accessory muscle use Abdominal: Soft, nontender to palpation, no guarding, no appreciable organomegaly Ext: No gross muscle atrophy, no edema, no contractures Neuro: CN II-XI grossly intact, no focal neuro deficits Psych: Alert, oriented, appropriate affect Data Reviewed Today: Pertinent Labs: Creatinine 0.58 Imaging: No new imaging Assessment and Plan: MRSA Superficial Abscess with purulent drainage from midsternal incision site, status post debridement and and wound VAC Atypical chest pain, reducible and suspect secondary to above. Sepsis upon admission, secondary to above Leukocytosis with pyrexia; resolved Status post CABG x 1 on 09/17/23 CAD with previous stenting Hypertension Hyperlipidemia -Wound cultures positive for MRSA -Blood cultures showing no growth to date. -PICC line placed on 02/13/2024 -Infectious disease following, patient will require 6-week course of IV antibiotics upon discharge. Patient will be discharged on daptomycin in the outpatient setting. -Cardiothoracic surgery note reviewed, continue wound VAC -Continue IV antibiotics with vancomycin 1250 mg every 8 hours. Will monitor renal function and vancomycin trough closely for any signs of vancomycin associated renal toxicity. -Telemetry monitoring. -Continue cardiac medication regimen with aspirin 81 mg daily, atorvastatin 40 mg daily, Plavix 75 mg daily, losartan 50 mg daily, amiodarone 200 mg daily, and metoprolol 50 mg twice daily. Anxiety and depression -Continue daily medication regimen with Lexapro 10 mg daily. Nicotine dependence -Strongly recommend smoking cessation. Patient reports he did quit but restarted 2 weeks ago. Order placed for nicotine patch 14 mg daily. DVT ppx: Subcu heparin Code status: Full code Anticipated discharge place: Pending clinical course Anticipated discharge time: Pending clinical course DVT ppx: Code status: Anticipated discharge place: Anticipated discharge time: Objective - Vital Signs Vital signs: Vital Signs Temp 98.4 F 02/15/24 08:30 Pulse 73 02/15/24 08:30 Resp 16 02/15/24 08:30 BP 183/80 02/15/24 08:30 Pulse Ox 99 02/15/24 08:30 FiO2 21 02/10/24 08:31 Intake & Output 02/14/24 02/15/24 02/15/24 18:59 06:59 18:59 Intake Total 736 60 236 Output Total 10 1500 450 Balance 726 -1440 -214 Weight 58.967 kg Intake: IV 500 60 0.9 60 Oral 236 236 Output: Urine 1500 450 Estimated Blood Loss 10 Other: Voiding Method Toilet Toilet Urinal Urinal # Voids 1 1 - Labs CBC & Chem 7: 02/14/24 07:00 02/15/24 07:15 Labs: Abnormal Lab Results - Last 24 Hours (Table) 02/15/24 Range/Units 07:15 Creatinine 0.58 L (0.66-1.25) mg/dL Microbiology - Last 24 Hours (Table) 02/09/24 17:17 Blood Culture - Final Blood
[2024-02-16 05:01] LABS: African American GFR (CKD) >90 (>60 ml/min/1.73 sqM); Non-African American GFR(CKD) >90 (>60 ml/min/1.73 sqM)
--- NOTE | 2024-02-16 07:45 | P.PN ---
Subjective Progress Note Date: 02/16/24 Principal diagnosis: Superficial sternal incision abscess. Previous medical history of coronary artery disease/unstable angina and previous myocardial infarction's status post multiple stents as well as off-pump CABG 09/17/23, hypertension, hyperlipidemia, chronic ongoing tobacco dependence, marijuana use, previous heavy EtOH use, peripheral arterial disease with claudication, left internal carotid artery stenosis with possible TIA in the past, medical noncompliance, and family history of premature coronary artery disease POD #2 sternal debridement, removal of sternal cables system, placement of wound VAC The patient was seen and examined this morning sitting up in bed on the medical surgical unit in no acute distress. Remains on room air, able to achieve 2000 mL on his incentive spirometry. Pain controlled with current medication regimen. Patient underwent debridement with removal of his sternal cables and placement of wound VAC, wound VAC currently functioning and patient states that his pain has lessened, changed wound VAC yesterday. Patient ambulatory without difficulty. We did discuss with the patient that likely returning to a sober living facility would not be ideal with wound VAC in place which will need to be changed Saturday, Saturday, Saturday as well as IV antibiotics through PICC line. Would recommend patient go to rehab at discharge, patient verbalized understanding although he is not sure this is the avenue he wants. Alternatively the patient could come to the wound care center for VAC changes if he is willing to come 3 days a week. No other new concerns. Objective - Vital Signs Vital signs: Vital Signs Temp 98.5 F 02/16/24 07:13 Pulse 67 02/16/24 07:13 Resp 15 02/16/24 07:13 BP 150/80 02/16/24 07:13 Pulse Ox 95 02/16/24 07:13 FiO2 21 02/10/24 08:31 Intake & Output 02/15/24 02/16/24 02/16/24 18:59 06:59 18:59 Intake Total 916 Output Total 450 Balance 466 Weight 59.9 kg Intake: Oral 916 Output: Urine 450 Other: Voiding Method Toilet Toilet Urinal Urinal # Voids 5 4 - Exam CONSTITUTIONAL: Appears comfortable, cooperative, no acute distress RESPIRATORY: Lungs sounds diminished bilaterally. Respirations even, nonlabored. Currently on room air with oxygen saturation 96%. Able to achieve 2000 mL on his incentive spirometry CARDIOVASCULAR: S1, S2 present. Regular rate and rhythm. Sternum stable. Palpable peripheral pulses bilaterally. No edema present GASTROINTESTINAL: Abdomen soft, nontender, nondistended. Active bowel sounds present 4 quadrants. Tolerating diet GENITOURINARY: Continues to void INTEGUMENTARY: Skin is warm and dry. Wound VAC in place over anterior chest wall, abdominal binder on around the chest for support NEUROLOGIC: Cranial nerves II through XII intact MUSKULOSKELETAL: Able to move all extremities, strength equal bilaterally, gait normal PSYCHIATRIC: Alert and oriented to person place and time, appropriate affect, intact judgment and insight INVASIVE LINES: Right antecubital PICC line present - Allied health notes Allied health notes reviewed: nursing - Labs CBC & Chem 7: 02/14/24 07:00 02/16/24 04:18 Labs: Abnormal Lab Results - Last 24 Hours (Table) 02/15/24 Range/Units 07:15 Creatinine 0.58 L (0.66-1.25) mg/dL Assessment and Plan Assessment: Superficial sternal incision wound, preliminary wound culture shows presumptive MRSA, CT scan of the chest did not show any drainable abscess, status post debridement, removal of cables, wound VAC placement Leukocytosis, likely secondary to above History of coronary artery disease/unstable angina and previous myocardial infarctions status post multiple stents as well as CABG 09/17/23 Hypertension Hyperlipidemia Chronic ongoing tobacco dependence Marijuana use Previous heavy EtOH use, currently living in a sober living environment Peripheral arterial disease with claudication Left internal carotid artery stenosis with possible TIA in the past Medical noncompliance Family history of premature coronary artery disease Plan: Wound VAC changed yesterday Antibiotic management per infectious disease recommendations. Currently on vancomycin. Continue to reinforce the importance of and encourage smoking sensation. Out of bed for all meals. Increase activity as tolerated. Medical management other comorbidities per internal medicine and infectious disease. Patient will likely need rehab at discharge for management of wound VAC as well as IV antibiotics through PICC line. Alternatively may come to the wound care center for VAC change Patient may be discharged from cardiothoracic surgery standpoint when okay with other services and appropriate discharge plan in place More recommendations to follow based on patient's clinical course.
--- NOTE | 2024-02-16 10:53 | P.PN ---
Subjective Progress Note Date: 02/16/24 Hospital Course: Patient is a very pleasant 59-year-old male with a past medical history of CAD status post previous stenting and CABG x 1 on 08/31/23, hypertension, hyperlipidemia, anxiety, depression, nicotine and previous alcohol dependence currently living at clean living facility. He presented to the emergency department with a chief complaint of chest pain. Patient reports midsternal ch est pain somewhat ongoing since completion of CABG in August but states it has significantly worsened over the past 2 to 3 days and accompanied by with newly developed mid incisional drainage of thick purulent fluid and surrounding erythema. Patient reports previous infection at same site that was treated with IV antibiotics and he believed fully resolved. He reports abscess returned in same location about 2 to 3 days ago and accompanied by worsening midsternal chest pain that is reproducible and described as sharp and persistent. He denies having any radiation of pain and denies any associated symptoms including fevers, chills, diaphoresis, palpitations, shortness of breath, cough or conge stion, nausea, vomiting, or experiencing any numbness/tingling/weakness/swelling in his extremities. Upon arrival to our facility, patient underwent evaluation in the emergency department. Vital signs upon arrival show blood pressure 117/74, heart rate 116, respiratory rate 20, temp 98.0 F, and SpO2 of 98% on room air. EKG completed showing sinus tachycardia at 100 bpm with T wave inversion in inferior and lateral leads II, III, aVF, and V5 and V6. T wave inversion is a new finding when compared to EKG completed 10/22/2023 upon personal review, interpretation, and comparison. Chest x-ray completed negative for acute cardiopulmonary process. Labs completed and reviewed. CBC showing leukocytosis with WBC count of 16.1. Coagulation profile normal findings. BMP unremarkable. Blood glucose 121. Magnesium slightly low at 1.7. Liver profile unremarkable. Troponin was negative at less than 0.012. Patient admitted under our services with consultation to infectious disease, cardiothoracic surgery and cardiology. Troponins were trended all negative at less than 0.012 x 3 draws. Preliminary wound cultures resulting positive for MRSA. Patient is now status post I&D and debridement. Status post wound VAC. PICC line in place. Subjective: Seen and examined at bedside. No acute events overnight. Pertinent positives and negatives as discussed above, a complete review of sy stems was performed and all other systems are negative. Vitals Signs Reviewed. General: Nontoxic, no distress, appears at stated age Derm: Warm, dry, wound VAC in place Head: Atraumatic, normocephalic, symmetric Eyes: EOMI, no lid lag, anicteric sclera Mouth: No lip lesion, mucus membranes moist Cardiovascular: S1S2 reg, no murmur Lungs: CTA bilateral, no rhonchi, no rales, no accessory muscle use Abdominal: Soft, nontender to palpation, no guarding, no appreciable organomegaly Ext: No gross muscle atrophy, no edema, no contractures Neuro: CN II-XI grossly intact, no focal neuro deficits Psych: Alert, oriented, appropriate affect Data Reviewed Today: Pertinent Labs: Creatinine 0.68 Imaging: No new imaging Assessment and Plan: MRSA Superficial Abscess with purulent drainage from midsternal incision site, status post debridement and and wound VAC Atypical chest pain, reducible and suspect secondary to above. Sepsis upon admission, secondary to above Leukocytosis with pyrexia; resolved Status post CABG x 1 on 09/17/23 CAD with previous stenting Hypertension Hyperlipidemia -Wound cultures positive for MRSA -Blood cultures showing no growth to date. -PICC line placed on 02/13/2024 -Infectious disease following, patient will require 6-week course of IV antibiotics upon discharge. Patient will be discharged on daptomycin in the outpatient setting. -Cardiothoracic surgery note reviewed, continue wound VAC, okay to be discharged from neurostandpoint -Continue IV antibiotics with vancomycin 1250 mg every 8 hours. Will monitor renal function and vancomycin trough closely for any signs of vancomycin associated renal toxicity. -Telemetry monitoring. -Continue cardiac medication regimen with aspirin 81 mg daily, atorvastatin 40 mg daily, Plavix 75 mg daily, losartan 50 mg daily, amiodarone 200 mg daily, and metoprolol 50 mg twice daily. Anxiety and depression -Continue daily medication regimen with Lexapro 10 mg daily. Nicotine dependence -Strongly recommend smoking cessation. Patient reports he did quit but restarted 2 weeks ago. Order placed for nicotine patch 14 mg daily. DVT ppx: Subcu heparin Code status: Full code Anticipated discharge place: Home with home care versus [facility] facility Anticipated discharge time: Pending clinical course Objective - Vital Signs Vital signs: Vital Signs Temp 98.5 F 02/16/24 07:13 Pulse 67 02/16/24 07:13 Resp 16 02/16/24 10:07 BP 150/80 02/16/24 07:13 Pulse Ox 95 02/16/24 07:13 FiO2 21 02/10/24 08:31 Intake & Output 02/15/24 02/16/24 02/16/24 18:59 06:59 18:59 Intake Total 916 Output Total 450 Balance 466 Weight 59.9 kg Intake: Oral 916 Output: Urine 450 Other: Voiding Method Toilet Toilet Toilet Urinal Urinal Urinal # Voids 5 4 # Bowel Movements 1 - Labs CBC & Chem 7: 02/14/24 07:00 02/16/24 04:18
--- NOTE | 2024-02-16 16:17 | P.PN ---
Subjective Progress Note Date: 02/16/24 Principal diagnosis: Reason for follow-up is a sepsis and chest wall cellulitis Patient is a 59-year-old male with a past medical history negative for hypertension hyperlipidemia [place] coronary artery disease in this patient who is status post single-vessel off-pump CABG on September 17, 2023 presenting to the hospital with increasing swelling and redness and drainage noted of incision.Patient is status post Sternal debridement, removal of sternal cables system, placement of wound VAC, completed on 02/14/2024 On today's evaluation that is, 02/16/2024,the patient denies any fever or any chills, patient is breathing comfortably on room air, the patient chest pain is currently controlled denies shortness of breath and no significant cough, patient denies abdominal pain, no nausea vomiting or diarrhea. Patient did have creatinine 0.68 blood culture have been negative Objective - Vital Signs Vital signs: Vital Signs Temp 98.0 F 02/16/24 13:26 Pulse 83 02/16/24 13:26 Resp 16 02/16/24 13:26 BP 106/66 02/16/24 13:26 Pulse Ox 96 02/16/24 13:26 FiO2 21 02/10/24 08:31 Intake & Output 02/15/24 02/16/24 02/16/24 18:59 06:59 18:59 Intake Total 916 200 Output Total 450 Balance 466 200 Weight 59.9 kg Intake: Oral 916 200 Output: Urine 450 Other: Voiding Method Toilet Toilet Toilet Urinal Urinal Urinal # Voids 5 4 2 # Bowel Movements 1 - Exam GENERAL DESCRIPTION: Middle-age male lying in bed in no distress RESPIRATORY SYSTEM: Unlabored breathing , decreased breath sounds at bases HEART: S1 S2 regular rate and rhythm , chest wall wound is currently covered with a wound VAC ABDOMEN: Soft , no tenderness EXTREMITIES: No edema feet - Labs CBC & Chem 7: 02/14/24 07:00 02/16/24 04:18 Assessment and Plan (1) Sepsis Current Visit: Yes Status: Acute Code(s): A41.9 - SEPSIS, UNSPECIFIED ORGANISM SNOMED Code(s): 61142186 (2) Allergy to sulfa drugs Current Visit: Yes Status: Acute Code(s): Z88.2 - ALLERGY STATUS TO SULFONAMIDES SNOMED Code(s): 88242710 (3) Incisional infection Current Visit: Yes Status: Acute Code(s): T81.49XA - INFECTION FOLLOWING A PROCEDURE, OTHER SURGICAL SITE, INIT SNOMED Code(s): 55281952 (4) Abscess or cellulitis of chest wall Current Visit: No Status: Acute Code(s): HJI3325 - SNOMED Code(s): 20 7497651 Plan: 1patient presented to hospital with sepsis in this patient who did have fever tachycardia elevated white count source likely chest wall cellulitis and an abscess with concern for possible deep versus superficial infection and likely from gram-positive skin amador gram-negative infection less likely but not entirely excluded 2-local culture are currently growing MRSA blood culture so far negative, CT of the chest did not show any drainable abscess 3-patient is status post surgical debridement and removal of any infected wires along with wound VAC placement completed on 02/14/2024 4-patient will continue with vancomycin pharmacy to dose, plan is for 6-week course of antibiotic therapy May benefit from placement rehab to take care of the wound VAC as well as IV antibiotic Dictation was produced using [employer] dictation software. please excuse any g rammatical, word or spelling errors. Time with Patient: Less than 30
--- NOTE | 2024-02-16 16:17 | P.PN ---
Subjective Progress Note Date: 02/15/24 Principal diagnosis: Reason for follow-up is a sepsis and chest wall cellulitis Patient is a 59-year-old male with a past medical history negative for hypertension hyperlipidemia [place] coronary artery disease in this patient who is status post single-vessel off-pump CABG on September 17, 2023 presenting to the hospital with increasing swelling and redness and drainage noted of incision.Patient is status post Sternal debridement, removal of sternal cables system, placement of wound VAC, completed on 02/14/2024 On today's evaluation 02/15/2024, Patient is afebrile this morning patient anterior chest pain at the site of I&D control with the pain medication, denies shortness of breath or cough, the patient is currently on room air, patient denies any abdominal pain no diarrhea no nausea no vomiting. Patient did have a creatinine 0.58 Objective - Vital Signs Vital signs: Vital Signs Temp 98.3 F 02/15/24 16:11 Pulse 57 L 02/15/24 16:11 Resp 16 02/15/24 16:11 BP 135/74 02/15/24 16:11 Pulse Ox 95 02/15/24 16:11 FiO2 21 02/10/24 08:31 Intake & Output 02/15/24 02/15/24 02/16/24 06:59 18:59 06:59 Intake Total 60 916 Output Total 1500 450 Balance -1440 466 Intake: IV 60 0.9 60 Oral 916 Output: Urine 1500 450 Other: Voiding Method Toilet Toilet Urinal Urinal # Voids 1 5 - Exam GENERAL DESCRIPTION: Middle-age male lying in bed in no distress RESPIRATORY SYSTEM: Unlabored breathing , decreased breath sounds at bases HEART: S1 S2 regular rate and rhythm , chest wall wound is currently covered with a wound VAC ABDOMEN: Soft , no tenderness EXTREMITIES: No edema feet - Labs CBC & Chem 7: 02/14/24 07:00 02/16/24 04:18 Labs: Abnormal Lab Results - Last 24 Hours (Table) 02/15/24 Range/Units 07:15 Creatinine 0.58 L (0.66-1.25) mg/dL Microbiology - Last 24 Hours (Table) 02/09/24 17:17 Blood Culture - Final Blood Assessment and Plan (1) Sepsis Current Visit: Yes Status: Acute Code(s): A41.9 - SEPSIS, UNSPECIFIED ORGANISM SNOMED Code(s): 13059723 (2) Allergy to sulfa drugs Current Visit: Yes Status: Acute Code(s): Z88.2 - ALLERGY STATUS TO SULFONAMIDES SNOMED Code(s): 19948347 (3) Incisional infection Current Visit: Yes Status: Acute Code(s): T81.49XA - INFECTION FOLLOWING A PROCEDURE, OTHER SURGICAL SITE, INIT SNOMED Code(s): 57286461 (4) Abscess or cellulitis of chest wall Current Visit: No Status: Acute Code(s): [id number] - SNOMED Code(s): 751948789 Plan: 1patient presented to hospital with sepsis in this patient who did have fever tachycardia elevated white count source likely chest wall cellulitis and an abscess with concern for possible deep versus superficial infection and likely from gram-positive skin amador gram-negative infection less likely but not entirely excluded 2-local culture are currently growing MRSA blood culture so far negative, CT of the chest did not show any drainable abscess 3-patient is status post surgical debridement and removal of any infected wires along with wound VAC placement completed on 02/14/2024 4-patient will continue with vancomycin pharmacy to dose while watching his kidney function closely Dictation was produced using [employer] dictation software. please excuse any grammatical, word or spelling errors. Time with Patient: Less than 30
[2024-02-17 04:44] LABS: African American GFR (CKD) >90 (>60 ml/min/1.73 sqM); Non-African American GFR(CKD) >90 (>60 ml/min/1.73 sqM)
--- NOTE | 2024-02-17 12:10 | P.PN ---
Subjective Progress Note Date: 02/17/24 Principal diagnosis: Reason for follow-up is a sepsis and chest wall cellulitis Patient is a 59-year-old male with a past medical history negative for hypertension hyperlipidemia CA coronary artery disease in this patient who is status post single-vessel off-pump CABG on September 17, 2023 presenting to the hospital with increasing swelling and redness and drainage noted of incision.Patient is status post Sternal debridement, removal of sternal cables system, placement of wound VAC, completed on 02/14/2024 On today's evaluation that is, 02/17/2024,the patient remains to be afebrile, patient is on room air not requiring supplemental oxygen and denies any shortness of breath chest pain has decreased in intensity no significant cough abdominal pain or diarrhea. Patient did have a creatinine 0.70 blood culture has been negative Objective - Vital Signs Vital signs: Vital Signs Temp 98.2 F 02/17/24 07:29 Pulse 61 02/17/24 07:29 Resp 16 02/17/24 07:29 BP 130/75 02/17/24 07:29 Pulse Ox 96 02/17/24 07:29 FiO2 21 02/10/24 08:31 Intake & Output 02/16/24 02/17/24 02/17/24 18:59 06:59 18:59 Intake Total 200 Balance 200 Weight 59.6 kg Intake: Oral 200 Other: Voiding Method Toilet Toilet Urinal Urinal # Voids 4 3 # Bowel Movements 1 - Exam GENERAL DESCRIPTION: Middle-age male lying in bed in no distress RESPIRATORY SYSTEM: Unlabored breathing , decreased breath sounds at bases HEART: S1 S2 regular rate and rhythm , chest wall wound is currently covered with a wound VAC ABDOMEN: Soft , no tenderness EXTREMITIES: No edema feet - Labs CBC & Chem 7: 02/14/24 07:00 02/17/24 03:48 Assessment and Plan (1) Sepsis Current Visit: Yes Status: Acute Code(s): A41.9 - SEPSIS, UNSPECIFIED ORGANISM SNOMED Code(s): 65537267 (2) Allergy to sulfa drugs Current Visit: Yes Status: Acute Code(s): Z88.2 - ALLERGY STATUS TO SULFONAMIDES SNOMED Code(s): 57548427 (3) Incisional infection Current Visit: Yes Status: Acute Code(s): T81.49XA - INFECTION FOLLOWING A PROCEDURE, OTHER SURGICAL SITE, INIT SNOMED Code(s): 05991387 (4) Abscess or cellulitis of chest wall Current Visit: No Status: Acute Code(s): RNL2826 - SNOMED Code(s): 064210624 Plan: 1patient presented to hospital with sepsis in this patient who did have fever tachycardia elevated white count source likely chest wall cellulitis and an abscess with concern for possible deep versus superficial infection and likely from gram-positive skin amador gram-negative infection less likely but not entirely excluded 2-local culture are currently growing MRSA blood culture so far negative, CT of the chest did not show any drainable abscess 3-patient is status post surgical debridement and removal of any infected wires along with wound VAC placement completed on 02/14/2024 4- plan is for 6-week course of antibiotic therapy May benefit from placement rehab to take care of the wound VAC as well as IV antibiotic, currently waiting for placement Dictation was produced using [employer] dictation software. please excuse any grammatical, word or spelling errors. Time with Patient: Less than 30
--- NOTE | 2024-02-17 14:20 | P.PN ---
Subjective Progress Note Date: 02/17/24 59-year-old male with a PMH of CAD status post previous stenting and CABG x 1 on 08/31/23, hypertension, hyperlipidemia, anxiety, depression, nicotine and previous alcohol dependence currently living at [facility]. He presented to the emergency department with a chief complaint of chest pain. Patient reports midsternal chest pain somewhat ongoing since completion of CABG in August but states it has significantly worsened over the past 2 to 3 days and accompanied by with newly developed mid incisional drainage of thick purulent fluid and surrounding erythema. Upon arrival to our facility, patient underwent evaluation in the emergency department. Vital signs upon arrival show blood pressure 117/74, heart rate 116, respiratory rate 20, temp 98.0 F, and SpO2 of 98% on room air. EKG completed showing sinus tachycardia at 100 bpm with T wave inversion in inferior and lateral leads II, III, aVF, and V5 and V6. Chest x-ray completed negative for acute cardiopulmonary process. Labs completed and reviewed. CBC showing leukocytosis with WBC count of 16.1. Coagulation profile normal findings. BMP unremarkable. Blood glucose 121. Magnesium slightly low at 1.7. Liver profile unremarkable. Troponin was negative at less than 0.012. Patient admitted under our services with consultation to infectious disease, cardiothoracic surgery and cardiology. Troponins were trended all negative at less than 0.012 x 3 draws. Preliminary wound cultures resulting positive for MRSA. Patient is now status post I&D and debridement. Status post wound VAC. PICC line in place. 02/16 Patient was seen and examined. Pain well controlled. Plans for SNF now. Cr 0.7, GFR > 90. General: Nontoxic, no distress, appears at stated age Derm: Warm, dry, wound VAC in place Head: Atraumatic, normocephalic, symmetric Eyes: EOMI, no lid lag, anicteric sclera Mouth: No lip lesion, mucus membranes moist Cardiovascular: S1S2 reg, no murmur Lungs: CTA bilateral, no rhonchi, no rales, no accessory muscle use Ext: No gross muscle atrophy, no edema, no contractures Neuro: no focal neuro deficits Psych: Alert, oriented, appropriate affect Based on my assessment of this patient, this patient meets a high complexity level of care. MRSA Superficial Abscess with purulent drainage from midsternal incision site, status post debridement and and wound VAC: PICC line in place 02/12. ID on board. 6-week course of IV antibiotics upon discharge. Continue IV antibiotics with vancomycin 1250 mg every 8 hours. Will monitor renal function and vancomycin trough closely for any signs of vancomycin associated renal toxicity. Patient will be discharged on daptomycin in the outpatient setting. Atypical chest pain, reducible secondary to above Sepsis upon admission secondary to above CAD with previous stenting status post CABG x 1 on 09/17/23: ASA 81 mg PO QD, atorvastatin 40 mg PO QD, Plavix 75 mg PO QD, losartan 50 mg PO QD, amiodarone 200 mg PO QD, and metoprolol 50 mg PO BID. Hypertension Hyperlipidemia Anxiety and depression: Continue daily medication regimen with Lexapro 10 mg PO QD. Nicotine dependence: Nicotine patch 14 mg QD. CODE STATUS: FULL CODE DVT Prophylaxis: Heparin SQ GI Prophylaxis: Protonix PO Designated medical POA if patient is not able to make medical decisions for themselves: I have reviewed the following health analytics consultant notes: ID note. I have reviewed the results of the following tests: As above. I have ordered the following tests: As above. I have discussed the care of this patient with the following independent historian: Case management. I have independently interpreted the following test below: I have discussed the management of this patient with the following physician: Objective - Vital Signs Vital signs: Vital Signs Temp 98.2 F 02/17/24 07:29 Pulse 61 02/17/24 07:29 Resp 16 02/17/24 07:29 BP 130/75 02/17/24 07:29 Pulse Ox 96 02/17/24 07:29 FiO2 21 02/10/24 08:31 Intake & Output 02/16/24 02/17/24 02/17/24 18:59 06:59 18:59 Intake Total 200 Balance 200 Weight 59.6 kg Intake: Oral 200 Other: Voiding Method Toilet Toilet Urinal Urinal # Voids 4 3 # Bowel Movements 1 - Labs CBC & Chem 7: 02/14/24 07:00 02/17/24 03:48
[2024-02-18 07:23] LABS: African American GFR (CKD) >90 (>60 ml/min/1.73 sqM); Non-African American GFR(CKD) >90 (>60 ml/min/1.73 sqM)
[2024-02-18] MEDS: VANCOMYCIN TROUGH DUE 1 EACH MISC MISCELLANE ONE (07:38)
--- NOTE | 2024-02-18 10:26 | P.CONS ---
History of Present Illness - Reason for Consult Consult date: 02/18/24 wound care - History of Present Illness This is a 59-year-old patient who underwent a removal of sternal hardware and washout. Patient is currently has negative pressure wound VAC in place. Patient states that he is at a sober living place with a roommate. And does not think he will be able to do dressing changes at his current home. Patient is planning to go to a rehab center to help with rehab and dressing changes. P shannen's past medical history significant for coronary artery disease, hyperlipidemia, hypertension, NV, EtOH former smoker denies diabetes. Review Of Systems: Constitutional: No fever, no chills, no night sweats. No weight change. No weakness, fatigue or lethargy. No daytime sleepiness. Integumentary:reports wounds, no lesions. No rash or pruritus. No unusual bruising. No change in hair or nails. Physical exam: General Appearance: Alert, cooperative, no distress, appears stated age. Skin: See HPI all other Skin color, texture, tugor normal, no rashes or lesions. Neurologic: Alert oriented x3 Assessment: 1. Nonhealing ulceration with muscle exposure without necrosis other site Plan: 1.Chest: Apply negative pressure wound VAC at 125 mmHg continuous pressure to the sternal ulceration. Utilize black foam. Change Saturday. Upon discharge patient may utilize absorptive silver rope saline moistened gauze and bordered foam until outpatient wound VAC can be applied. Once outpatient wound VAC is applied follow the above wound VAC orders. 2. Patient to be seen in the wound care center in 1 week postdischarge Thank for the consultation any questions please contact the wound care center DNP note has been reviewed and discussed with Dr. Garza and the impression and plan of care has been directed as dictated. Past Medical History Past Medical History: Coronary Artery Disease (CAD), Chest Pain / Angina, Hyperlipidemia, Hypertension, Myocardial Infarction (NV) Additional Past Medical History / Comment(s): PT states he ahs 7 cardiac stents. Pt states he lost his card. ETOH (sober since August 2023) Last Myocardial Infarction Date:: 2016 History of Any Multi-Drug Resistant Organisms: MRSA Year Discovered:: 02/09/24 MDRO Source:: chest Past Surgical History: Coronary Bypass/CABG, Heart Catheterization With Stent Additional Past Surgical History / Comment(s): Single-vessel off-pump CABG September 17, 2023 Past Anesthesia/Blood Transfusion Reactions: No Reported Reaction Date of Last Stent Placement:: 2016 Past Psychological History: Anxiety, Depression Smoking Status: Former smoker Past Alcohol Use History: Abuse Past Drug Use History: Marijuana - Past Family History Father Family Medical History: Coronary Artery Disease (CAD), Myocardial Infarction (NV) Additional Family Medical History / Comment(s): from myocardial infarction in his 40s Mother Family Medical History: COPD Additional Family Medical History / Comment(s): from COPD in her 70s Brother(s) Family Medical History: Coronary Artery Disease (CAD) Additional Family Medical History / Comment(s): Had CABG at a young age Medications and Allergies Home Medications Medication Instructions Recorded Confirmed Type Atorvastatin [Lipitor] 40 mg PO DAILY 30 Days #30 tab 10/24/23 02/09/24 Rx Clopidogrel [Plavix] 75 mg PO DAILY 30 Days #30 tab 10/24/23 02/09/24 Rx Losartan [Cozaar] 50 mg PO DAILY@1200 30 Days #30 tab 10/24/23 02/09/24 Rx Metoprolol Tartrate [Lopressor] 50 mg PO BID 30 Days #60 tab 10/24/23 02/09/24 Rx Pantoprazole [Protonix] 40 mg PO AC-BRKFST 30 Days #30 tab 10/24/23 02/09/24 Rx Amiodarone [Cordarone] 200 mg PO DAILY 02/09/24 02/09/24 History Escitalopram [Lexapro] 10 mg PO DAILY 02/09/24 02/09/24 History Mv-Min/Folic/K1/Lycopen/Lutein 1 tab PO DAILY 02/09/24 02/09/24 History [Centrum Silver Men Tablet] Allergies Allergy/AdvReac Type Severity Reaction Status Date / Time sulfamethoxazole Allergy Rash/Hives Verified 02/09/24 13:32 [From Bactrim] trimethoprim [From Bactrim] Allergy Rash/Hives Verified 02/09/24 13:32 Physical Exam Vitals: Vital Signs Temp Pulse Resp BP Pulse Ox 02/18/24 07:39 98.5 F 77 16 130/72 98 02/18/24 00:40 97.9 F 56 L 16 157/72 96 02/17/24 18:49 97.9 F 54 L 18 149/82 96 02/17/24 14:00 97.0 F L 71 16 134/81 96 Intake and Output 02/17/24 02/18/24 02/18/24 22:59 06:59 14:59 Other: Voiding Method Toilet Urinal # Voids 1 Weight 60 kg Results CBC & Chem 7: 02/14/24 07:00 02/18/24 06:46 Assessment and Plan (1) Non-pressure chronic ulcer of skin of other sites with muscle involvement without evidence of necrosis Current Visit: Yes Status: Acute Code(s): L98.495 - NON-PRS CHR ULC SKIN/ OTH SITE WITH MSL INVL W/O EVD OF NECR SNOMED Code(s): 46482427 (2) Incisional infection Current Visit: Yes Status: Acute Code(s): T81.49XA - INFECTION FOLLOWING A PROCEDURE, OTHER SURGICAL SITE, INIT SNOMED Code(s): 92775835 (3) Cellulitis of chest wall Current Visit: No Status: Acute Code(s): L03.313 - CELLULITIS OF CHEST WALL SNOMED Code(s): 71485201
--- NOTE | 2024-02-18 11:50 | P.PN ---
Subjective Progress Note Date: 02/18/24 59-year-old male with a PMH of CAD status post previous stenting and CABG x 1 on 08/31/23, hypertension, hyperlipidemia, anxiety, depression, nicotine and previous alcohol dependence currently living at [facility] facility. He presented to the emergency department with a chief complaint of chest pain. Patient reports midsternal chest pain somewhat ongoing since completion of CABG in August but states it has significantly worsened over the past 2 to 3 days and accompanied by with newly developed mid incisional drainage of thick purulent fluid and surrounding erythema. Upon arrival to our facility, patient underwent evaluation in the emergency department. Vital signs upon arrival show blood pressure 117/74, heart rate 116, respiratory rate 20, temp 98.0 F, and SpO2 of 98% on room air. EKG completed showing sinus tachycardia at 100 bpm with T wave inversion in inferior and lateral leads II, III, aVF, and V5 and V6. Chest x-ray completed negative for acute cardiopulmonary process. Labs completed and reviewed. CBC showing leukocytosis with WBC count of 16.1. Coagulation profile normal findings. BMP unremarkable. Blood glucose 121. Magnesium slightly low at 1.7. Liver profile unremarkable. Troponin was negative at less than 0.012. Patient admitted under our services with consultation to infectious disease, cardiothoracic surgery and cardiology. Troponins were trended all negative at less than 0.012 x 3 draws. Preliminary wound cultures resulting positive for MRSA. Patient is now status post I&D and debridement. Status post wound VAC. PICC line in place. 02/16 Patient was seen and examined. Pain well controlled. Plans for SNF now. Cr 0.7, GFR > 90. 02/17 Patient was seen and examined. Pain well controlled. No bowel movement since admission. Currently taking Miralax. Cr 0.68, GFR > 90. General: Nontoxic, no distress, appears at stated age Derm: Warm, dry, wound VAC in place Head: Atraumatic, normocephalic, symmetric Eyes: EOMI, no lid lag, anicteric sclera Mouth: No lip lesion, mucus membranes moist Cardiovascular: S1S2 reg, no murmur Lungs: CTA bilateral, no rhonchi, no rales, no accessory muscle use Ext: No gross muscle atrophy, no edema, no contractures Neuro: no focal neuro deficits Psych: Alert, oriented, appropriate affect Based on my assessment of this patient, this patient meets a high complexity level of care. MRSA Superficial Abscess with purulent drainage from midsternal incision site, status post debridement and and wound VAC: PICC line in place 02/12. ID on board. 6-week course of IV antibiotics upon discharge. Continue IV antibiotics with vancomycin 1250 mg every 8 hours. Will monitor renal function and vancomycin trough closely for any signs of vancomycin associated renal toxicity. Patient will be discharged on daptomycin in the outpatient setting. Atypical chest pain, reducible secondary to above Sepsis upon admission secondary to above CAD with previous stenting status post CABG x 1 on 09/17/23: ASA 81 mg PO QD, atorvastatin 40 mg PO QD, Plavix 75 mg PO QD, losartan 50 mg PO QD, amiodarone 200 mg PO QD, and metoprolol 50 mg PO BID. Hypertension Hyperlipidemia Anxiety and depression: Continue daily medication regimen with Lexapro 10 mg PO QD. Nicotine dependence: Nicotine patch 14 mg QD. CODE STATUS: FULL CODE DVT Prophylaxis: Heparin SQ GI Prophylaxis: Protonix PO Designated medical POA if patient is not able to make medical decisions for themselves: I have reviewed the following managing consultant notes: I have reviewed the results of the following tests: Renal function I have ordered the following tests: Renal function I have discussed the care of this patient with the following independent historian: Case management. I have independently interpreted the following test below: I have discussed the management of this patient with the following physician: Gavin Reyes NP, counting to follow wound care in the outpatient setting. Objective - Vital Signs Vital signs: Vital Signs Temp 98.5 F 02/18/24 07:39 Pulse 77 02/18/24 07:39 Resp 16 02/18/24 07:39 BP 130/72 02/18/24 07:39 Pulse Ox 98 02/18/24 07:39 FiO2 21 02/10/24 08:31 Intake & Output 02/17/24 02/18/24 02/18/24 18:59 06:59 18:59 Weight 60 kg Other: Voiding Method Toilet Urinal # Voids 1 - Labs CBC & Chem 7: 02/14/24 07:00 02/18/24 06:46
--- NOTE | 2024-02-18 11:53 | P.PN ---
Progress Note - Text Progress Note Date: 02/18/24 Wound VAC dressing changed today at his bedside on the fourth floor medical surgical unit. The wound was measured 13 x 2 x 0.7 cm. GranuFoam black placed to wound bed. The wound was cleaned with granulated tissue and scant serosanguineous drainage. Dr. Reynolds from infectious disease observed the wound. Wound VAC settings 125 mmHg continuous pressure. Patient tolerated procedure well. The patient will be arranged to follow-up in the wound healing center, he was seen and evaluated by the wound healing center today. Chest surgical support binder in place, heart hugger has been placed and encouraged to use.
[2024-02-18] MEDS: HYDROmorphone 1 MG/ML 1 ML SYRINGE IVP STA (13:29)
--- NOTE | 2024-02-18 14:17 | P.PN ---
Subjective Progress Note Date: 02/18/24 Principal diagnosis: Reason for follow-up is a sepsis and chest wall cellulitis Patient is a 59-year-old male with a past medical history negative for hypertension hyperlipidemia [place] coronary artery disease in this patient who is status post single-vessel off-pump CABG on September 17, 2023 presenting to the hospital with increasing swelling and redness and drainage noted of incision.Patient is status post Sternal debridement, removal of sternal cables system, placement of wound VAC, completed on 02/14/2024 On today's evaluation that is, 02/18/2024, the patient continues to be afebrile, the patient is on room air and breathing comfortably, the Pt denies any worsening pain to the anterior chest wall wound no nausea vomiting no abdominal pain or diarrhea. Patient did have a creatinine 0.68 vancomycin trough is 25.7 anaerobe culture have been negative blood cultures are negative Objective - Vital Signs Vital signs: Vital Signs Temp 98.5 F 02/18/24 07:39 Pulse 77 02/18/24 07:39 Resp 16 02/18/24 07:39 BP 130/72 02/18/24 07:39 Pulse Ox 98 02/18/24 07:39 FiO2 21 02/10/24 08:31 Intake & Output 02/17/24 02/18/24 02/18/24 18:59 06:59 18:59 Weight 60 kg Other: Voiding Method Toilet Urinal # Voids 1 - Exam GENERAL DESCRIPTION: Middle-age male lying in bed in no distress RESPIRATORY SYSTEM: Unlabored breathing , decreased breath sounds at bases HEART: S1 S2 regular rate and rhythm , chest wall wound base looks clean with no slough tissue or surrounding redness ABDOMEN: Soft , no tenderness EXTREMITIES: No edema feet - Labs CBC & Chem 7: 02/14/24 07:00 02/18/24 06:46 Assessment and Plan (1) Sepsis Current Visit: Yes Status: Acute Code(s): A41.9 - SEPSIS, UNSPECIFIED ORGANISM SNOMED Code(s): 82864401 (2) Allergy to sulfa drugs Current Visit: Yes Status: Acute Code(s): Z88.2 - ALLERGY STATUS TO SULFONAMIDES SNOMED Code(s): 09967610 (3) Incisional infection Current Visit: Yes Status: Acute Code(s): T81.49XA - INFECTION FOLLOWING A PROCEDURE, OTHER SURGICAL SITE, INIT SNOMED Code(s): 60617859 (4) Abscess or cellulitis of chest wall Current Visit: No Status: Acute Code(s): CAB1396 - SNOMED Code(s): 184799807 Plan: 1patient presented to hospital with sepsis in this patient who did have fever tachycardia elevated white count source likely chest wall cellulitis and an abscess with concern for possible deep versus superficial infection and likely from gram-positive skin amador gram-negative infection less likely but not entirely excluded 2-local culture are currently growing MRSA blood culture so far negative, CT of the chest did not show any drainable abscess 3-patient is status post surgical debridement and removal of any infected wires along with wound VAC placement completed on 02/14/2024 4- plan is for 6-week course of IV vancomycin on discharge target trough of 15 discussed with the case specialist working on placement Dictation was produced using [employer] dictation software. please excuse any gr ammatical, word or spelling errors. Time with Patient: Less than 30
[2024-02-18 15:29] VITALS: BMI 22.6
[2024-02-18] MEDS: VANCOMYCIN 1,250 MG in SODIUM CHLORIDE 0.9% 250 ML IVPB SCH (21:45)
[2024-02-19 03:21] LABS: African American GFR (CKD) >90 (>60 ml/min/1.73 sqM); Non-African American GFR(CKD) >90 (>60 ml/min/1.73 sqM)
--- NOTE | 2024-02-19 11:54 | P.PN ---
Subjective Progress Note Date: 02/19/24 Principal diagnosis: Reason for follow-up is a sepsis and chest wall cellulitis Patient is a 59-year-old male with a past medical history negative for hypertension hyperlipidemia [place] coronary artery disease in this patient who is status post single-vessel off-pump CABG on September 17, 2023 presenting to the hospital with increasing swelling and redness and drainage noted of incision.Patient is status post Sternal debridement, removal of sternal cables system, placement of wound VAC, completed on 02/14/2024 On today's evaluation that is 02/19/2024, patient has been afebrile, patient is breathing comfortably and is currently on room air, patient denies having any significant cough and the chest pain is currently controlled no nausea vomiting abdominal pain or diarrhea. Patient did have a creatinine 0.80 blood culture has been negative Objective - Vital Signs Vital signs: Vital Signs Temp 97.9 F 02/19/24 07:29 Pulse 56 L 02/19/24 07:29 Resp 15 02/19/24 07:29 BP 130/70 02/19/24 07:29 Pulse Ox 95 02/19/24 07:29 FiO2 21 02/10/24 08:31 Intake & Output 02/18/24 02/19/24 02/19/24 18:59 06:59 18:59 Intake Total 250 Balance 250 Weight 60 kg 60 kg Intake: Intake, IV Titration 250 Amount Vancomycin 1,250 mg In 250 Sodium Chloride 0.9% 250 ml @ 125 mls/hr IVPB Q12HR [facility] Rx#:[id number] Other: Voiding Method Toilet Toilet Urinal Urinal # Voids 3 - Exam GENERAL DESCRIPTION: Middle-age male lying in bed in no distress RESPIRATORY SYSTEM: Unlabored breathing , decreased breath sounds at bases HEART: S1 S2 regular rate and rhythm , chest wall wound covered with a wound VAC ABDOMEN: Soft , no tenderness EXTREMITIES: No edema feet - Labs CBC & Chem 7: 02/14/24 07:00 02/19/24 02:19 Assessment and Plan (1) Sepsis Current Visit: Yes Status: Acute Code(s): A41.9 - SEPSIS, UNSPECIFIED ORGANISM SNOMED Code(s): 58710191 (2) Allergy to sulfa drugs Current Visit: Yes Status: Acute Code(s): Z88.2 - ALLERGY STATUS TO SULFONAMIDES SNOMED Code(s): 38814442 (3) Incisional infection Current Visit: Yes Status: Acute Code(s): T81.49XA - INFECTION FOLLOWING A P ROCEDURE, OTHER SURGICAL SITE, INIT SNOMED Code(s): 33436896 (4) Abscess or cellulitis of chest wall Current Visit: No Status: Acute Code(s): CFH0620 - SNOMED Code(s): 467649352 Plan: 1patient presented to hospital with sepsis in this patient who did have fever tachycardia elevated white count source likely chest wall cellulitis and an abscess with concern for possible deep versus superficial infection and likely from gram-positive skin amador gram-negative infection less likely but not entirely excluded 2-local culture are currently growing MRSA blood culture so far negative, CT of the chest did not show any drainable abscess 3-patient is status post surgical debridement and removal of any infected wires along with wound VAC placement completed on 02/14/2024 4-patient is slowly clinically improving blood culture have been negative he did get a PICC line, plan is for total of 6-week course of IV vancomycin on discharge target trough of 15, currently waiting for placement Dictation was produced using [employer] dictation software. please excuse any grammatical, word or spelling errors. Time with Patient: Less than 30
--- NOTE | 2024-02-19 12:07 | P.PN ---
Subjective Progress Note Date: 02/19/24 59-year-old male with a PMH of CAD status post previous stenting and CABG x 1 on 08/31/23, hypertension, hyperlipidemia, anxiety, depression, nicotine and previous alcohol dependence currently living at [facility]. He presented to the emergency department with a chief complaint of chest pain. Patient reports midsternal chest pain somewhat ongoing since completion of CABG in August but states it has significantly worsened over the past 2 to 3 days and accompanied by with newly developed mid incisional drainage of thick purulent fluid and surrounding erythema. Upon arrival to our facility, patient underwent evaluation in the emergency department. Vital signs upon arrival show blood pressure 117/74, heart rate 116, respiratory rate 20, temp 98.0 F, and SpO2 of 98% on room air. EKG completed showing sinus tachycardia at 100 bpm with T wave inversion in inferior and lateral leads II, III, aVF, and V5 and V6. Chest x-ray completed negative for acute cardiopulmonary process. Labs completed and reviewed. CBC showing leukocytosis with WBC count of 16.1. Coagulation profile normal findings. BMP unremarkable. Blood glucose 121. Magnesium slightly low at 1.7. Liver profile unremarkable. Troponin was negative at less than 0.012. Patient admitted under our services with consultation to infectious disease, cardiothoracic surgery and cardiology. Troponins were trended all negative at less than 0.012 x 3 draws. Preliminary wound cultures resulting positive for MRSA. Patient is now status post I&D and debridement. Status post wound VAC. PICC line in place. 02/18. awaiting snf placement Objective - Vital Signs Vital signs: Vital Signs Temp 97.9 F 02/19/24 07:29 Pulse 56 L 02/19/24 07:29 Resp 15 02/19/24 07:29 BP 130/70 02/19/24 07:29 Pulse Ox 95 02/19/24 07:29 FiO2 21 02/10/24 08:31 Intake & Output 02/18/24 02/19/24 02/19/24 18:59 06:59 18:59 Intake Total 250 Balance 250 Weight 60 kg 60 kg Intake: Intake, IV Titration 250 Amount Vancomycin 1,250 mg In 250 Sodium Chloride 0.9% 250 ml @ 125 mls/hr IVPB Q12HR [facility] Rx#:[id number] Other: Voiding Method Toilet Toilet Urinal Urinal # Voids 3 - Exam General: Nontoxic, no distress, appears at stated age Derm: Warm, dry, wound VAC in place Head: Atraumatic, normocephalic, symmetric Eyes: EOMI, no lid lag, anicteric sclera Mouth: No lip lesion, mucus membranes moist Cardiovascular: S1S2 reg, no murmur wound vac attahced Lungs: CTA bilateral, no rhonchi, no rales, no accessory muscle use Ext: No gross muscle atrophy, no edema, no contractures Neuro: no focal neuro deficits Psych: Alert, oriented, appropriate affect lines: r arm picc line - Labs CBC & Chem 7: 02/14/24 07:00 02/19/24 02:19 Assessment and Plan (1) Incisional infection Narrative/Plan: #) MRSA abscess with purulent drainage from sternum incision site. s/p debridement and wound vac placement. Plan to continue IV vancomycin for 6 weeks. continue wound vac #) atypical chest pain, likely msk pain from above #) sepsis, poa from admission, nwo resolved #) CAD with prior stenting and cabg x1 on 09/17/23-continue asa 81 mg daily, clopedrigrok 75 mg daily, atorvastatin 40 mg hs and metoprolol tarrrate 50 mg BID #) Primary htn, continue losartan 50 mg daily for bp control #) Hyperlipidemia-continue atorvastatin #) Depression/anxiety. continue lexaopro 10 mg monica #) Nicotine depdence-continue nicotine patch while inpatient DVT ppx: subq heparin gi PPx: po pantoprazole Disposition: sufficeintyl medically acceptable for discharge planning Current Visit: Yes Status: Acute Code(s): T81.49XA - INFECTION FOLLOWING A PROCEDURE, OTHER SURGICAL SITE, INIT SNOMED Code(s): 67307948 Time with Patient: Greater than 30
[2024-02-20 08:05] VITALS: RESP 16
[2024-02-20] MEDS: VANCOMYCIN TROUGH DUE 1 EACH MISC MISCELLANE ONE (08:25)
[2024-02-20 08:40] LABS: African American GFR (CKD) >90 (>60 ml/min/1.73 sqM); Non-African American GFR(CKD) >90 (>60 ml/min/1.73 sqM)
[2024-02-20] MEDS: AMPICILLIN-SULBACTAM 3 GM in SODIUM CHLORIDE 0.9% 100 ML IVPB SCH (12:23)
--- NOTE | 2024-02-20 12:49 | P.PN ---
Subjective Progress Note Date: 02/20/24 Principal diagnosis: Reason for follow-up is a sepsis and chest wall cellulitis Patient is a 59-year-old male with a past medical history negative for hypertension hyperlipidemia VA coronary artery disease in this patient who is status post single-vessel off-pump CABG on September 17, 2023 presenting to the hospital with increasing swelling and redness and drainage noted of incision.Patient is status post Sternal debridement, removal of sternal cables system, placement of wound VAC, completed on 02/14/2024 On today's evaluation that is 02/20/2024, Patient is afebrile this morning patient denies having any chest pain shortness of breath or cough, the patient is currently on room air, patient denies any abdominal pain no diarrhea no nausea no vomiting has been complaining of mostly pain to the left lower jaw with an infected tooth. Patient did have a creatinine 0.75 Vanco trough is 17 Objective - Vital Signs Vital signs: Vital Signs Temp 98.1 F 02/20/24 07:43 Pulse 70 02/20/24 10:11 Resp 16 02/20/24 07:43 BP 124/72 02/20/24 07:43 Pulse Ox 95 02/20/24 07:43 FiO2 21 02/10/24 08:31 Intake & Output 02/19/24 02/20/24 02/20/24 18:59 06:59 18:59 Intake Total 540 Balance 540 Weight 59.6 kg Intake: Oral 540 Other: Voiding Method Toilet Urinal # Voids 3 2 - Exam GENERAL DESCRIPTION: Middle-age male lying in bed in no distress. HEENT: Left lower jaw with an infected broken tooth RESPIRATORY SYSTEM: Unlabored breathing , decreased breath sounds at bases HEART: S1 S2 regular rate and rhythm , chest wall wound covered with a wound VAC ABDOMEN: Soft , no tenderness EXTREMITIES: No edema feet - Labs CBC & Chem 7: 02/14/24 07:00 02/20/24 08:13 Assessment and Plan (1) Sepsis Current Visit: Yes Status: Acute Code(s): A41.9 - SEPSIS, UNSPECIFIED ORGANISM SNOMED Code(s): 40976658 (2) Allergy to sulfa drugs Current Visit: Yes Status: Acute Code(s): Z88.2 - ALLERGY STATUS TO SULFONAMIDES SNOMED Code(s): 74599508 (3) Incisional infection Current Visit: Yes Status: Acute Code(s): T81.49XA - INFECTION FOLLOWING A PROCEDURE, OTHER SURGICAL SITE, INIT SNOMED Code(s): 10519088 (4) Abscess or cellulitis of chest wall Current Visit: No Status: Acute Code(s): KXH3907 - SNOMED Code(s): 731001979 Plan: 1patient presented to hospital with sepsis in this patient who did have fever tachycardia elevated white count source likely chest wall cellulitis and an abscess with concern for possible deep versus superficial infection and likely from gram-positive skin amador gram-negative infection less likely but not entirely excluded 2-local culture are currently growing MRSA blood culture so far negative, CT of the chest did not show any drainable abscess 3-patient is status post surgical debridement and removal of any infected wires along with wound VAC placement completed on 02/14/2024 4-patient is slowly clinically improving blood culture have been negative he did get a PICC line, plan is for total of 6-week course of IV vancomycin on discharge target trough of 15, currently waiting for placement 5-patient also have develop pain to the left lower jaw with infected broken left lower jaw tooth we will add Unasyn see response but hopefully transition to Augmentin on discharge if improve Dictation was produced using [employer] dictation software. please excuse any grammatical, word or spelling errors. Time with Patient: Less than 30
--- NOTE | 2024-02-20 13:06 | P.PN ---
Subjective Progress Note Date: 02/20/24 Principal diagnosis: Superficial sternal incision abscess. Past medical history significant for coronary artery disease/unstable angina and previous myocardial infarction's status post multiple stents as well as off-pump CABG x 1 vessel left internal mammary artery to the left anterior sending coronary artery on September 17, 2023, hypertension, hyperlipidemia, chronic ongoing tobacco dependence, marijuana use, previous heavy EtOH use, peripheral arterial disease with claudication, left internal carotid artery stenosis with possible TIA in the past, medical noncompliance, and family history of premature coronary artery disease with his dad passing away at age 40 from a myocardial infarction. Wound VAC dressing changed today at his bedside on the fourth floor medical surgical unit. The wound was measured 12.5 x 1.5 x 0.5 cm. GranuFoam black placed to wound bed. The wound was clean with granulated tissue and scant serosanguineous drainage. Wound VAC settings 125 mmHg continuous pressure. Patient tolerated procedure well. The patient will be arranged to follow-up in the wound healing center, proir to discharge. Chest surgical support binder in place. Objective - Vital Signs Vital signs: Vital Signs Temp 98.1 F 02/20/24 07:43 Pulse 70 02/20/24 10:11 Resp 16 02/20/24 07:43 BP 124/72 02/20/24 07:43 Pulse Ox 95 02/20/24 07:43 FiO2 21 02/10/24 08:31 Intake & Output 02/19/24 02/20/24 02/20/24 18:59 06:59 18:59 Intake Total 540 Balance 540 Weight 59.6 kg Intake: Oral 540 Other: Voiding Method Toilet Urinal # Voids 3 2 - Labs CBC & Chem 7: 02/14/24 07:00 02/20/24 08:13
[2024-02-20] MEDS: HYDROmorphone 1 MG/ML 1 ML SYRINGE IVP STA (13:57)
--- NOTE | 2024-02-20 13:59 | P.DS ---
Providers Date of admission: 02/09/24 12:55 Expected date of discharge: 02/20/24 Attending physician: Timur Vaughn MD Consults: 02/09/24 12:54 Consult Physician Stat Consulting Provider: Justin Mondragon Consult Reason/Comments: Open heart surgery site complications Do you want consulting provider notified?: Yes 02/09/24 16:22 Consult Physician Routine Consulting Provider: Bo Reynolds Consult Reason/Comments: abscess, CABG midsternal incision site Do you want consulting provider notified?: Already Contacted 02/09/24 17:02 Consult Physician Routine Consulting Provider: Jorge Yap Consult Reason/Comments: abscess to sternal incision s/p CABG 09/17/23 Do you want consulting provider notified?: Yes Primary care physician: [facility] Course: 59-year-old male with a PMH of CAD status post previous stenting and CABG x 1 on 08/31/23, hypertension, hyperlipidemia, anxiety, depression, nicotine and previous alcohol dependence currently living at [facility] facility. He presented to the emergency department with a chief complaint of chest pain. Patient reports midsternal chest pain somewhat ongoing since completion of CABG in August but states it has significantly worsened over the past 2 to 3 days and accompanied by with newly developed mid incisional drainage of thick purulent fluid and surrounding erythema. Upon arrival to our facility, patient underwent evaluation in the emergency department. Vital signs upon arrival show blood pressure 117/74, heart rate 116, respiratory rate 20, temp 98.0 F, and SpO2 of 98% on room air. EKG completed showing sinus tachycardia at 100 bpm with T wave inversion in inferior and lateral leads II, III, aVF, and V5 and V6. Chest x-ray completed negative for acute cardiopulmonary process. Labs completed and reviewed. CBC showing leukocytosis with WBC count of 16.1. Coagulation profile normal findings. BMP unremarkable. Blood glucose 121. Magnesium slightly low at 1.7. Liver profile unremarkable. Troponin was negative at less than 0.012. Patient admitted under our services with consultation to infectious disease, cardiothoracic surgery and cardiology. Troponins were trended all negative at less than 0.012 x 3 draws. Preliminary wound cultures resulting positive for MRSA. Patient is now status post I&D and debridement. Status post wound VAC. PICC line in place. 02/19 Patient was seen and examined. No events overnight. Plans for SNF today. Cr 0.75 GFR > 90. Discharge Plan: 6-week course of IV vancomycin on discharge target trough of 15. Augmentin x 14 days for dental infection. Follow up with PCP within 1-2 days of discharge. Follow up with ID Dr. Reynolds within 1 week of discharge. Follow up with Wound Care center within 1 week of discharge. Follow up with CT surgery Dr. Yap on 03/05 at 2PM. General: Nontoxic, no distress, appears at stated age Derm: Warm, dry, wound VAC in place Head: Atraumatic, normocephalic, symmetric Eyes: EOMI, no lid lag, anicteric sclera Mouth: No lip lesion, mucus membranes moist Cardiovascular: S1S2 reg, no murmur, midsternal chest wound vac in place Lungs: CTA bilateral, no rhonchi, no rales, no accessory muscle use Ext: No gross muscle atrophy, no edema, no contractures, RUE PICC Neuro: no focal neuro deficits Psych: Alert, oriented, appropriate affect Based on my assessment of this patient, this patient meets a high complexity le dimas of care. MRSA Superficial Abscess with purulent drainage from midsternal incision site, status post debridement and and wound VAC Atypical chest pain, reducible secondary to above Sepsis upon admission secondary to above CAD with previous stenting status post CABG x 1 on 09/17/23 Hypertension Hyperlipidemia Anxiety and depression Nicotine dependence This complex discharge took 35 minutes to complete. Patient Condition at Discharge: Stable Plan - Discharge Summary New Discharge Prescriptions: New Nicotine 14Mg/24Hr Patch [Habitrol] 1 patch TRANSDERM DAILY patch Melatonin 3 mg PO HS PRN tab PRN Reason: Insomnia Vancomycin 1,250 mg IVPB Q12HR each Amoxic-Pot Clav 875-125Mg [Augmentin 875-125] 1 tab PO BID #28 tab HYDROcodone/APAP 10-325MG [[place] 10-325] 1 each PO Q6HR PRN #12 tab PRN Reason: Pain Aspirin 81 mg PO DAILY tab Ipratropium-Albuterol Nebulize [Duoneb 0.5 mg-3 mg/3 ml Soln] 3 ml INHALATION RT-QID PRN each PRN Reason: Shortness Of Breath polyethylene glycoL 3350 [Miralax] 17 gm PO DAILY packet Continue Atorvastatin [Lipitor] 40 mg PO DAILY 30 Days #30 tab Clopidogrel [Plavix] 75 mg PO DAILY 30 Days #30 tab Pantoprazole [Protonix] 40 mg PO AC-BRKFST 30 Days #30 tab Amiodarone [Cordarone] 200 mg PO DAILY Escitalopram [Lexapro] 10 mg PO DAILY Losartan [Cozaar] 50 mg PO DAILY@1200 30 Days #30 tab Metoprolol Tartrate [Lopressor] 50 mg PO BID 30 Days #60 tab Mv-Min/Folic/K1/Lycopen/Lutein [Centrum Silver Men Tablet] 1 tab PO DAILY Discharge Medication List Atorvastatin [Lipitor] 40 mg PO DAILY 30 Days #30 tab 10/24/23 [Rx] Clopidogrel [Plavix] 75 mg PO DAILY 30 Days #30 tab 10/24/23 [Rx] Losartan [Cozaar] 50 mg PO DAILY@1200 30 Days #30 tab 10/24/23 [Rx] Metoprolol Tartrate [Lopressor] 50 mg PO BID 30 Days #60 tab 10/24/23 [Rx] Pantoprazole [Protonix] 40 mg PO AC-BRKFST 30 Days #30 tab 10/24/23 [Rx] Amiodarone [Cordarone] 200 mg PO DAILY 02/09/24 [History] Escitalopram [Lexapro] 10 mg PO DAILY 02/09/24 [History] Mv-Min/Folic/K1/Lycopen/Lutein [Centrum Silver Men Tablet] 1 tab PO DAILY 02/09/24 [History] Amoxic-Pot Clav 875-125Mg [Augmentin 875-125] 1 tab PO BID #28 tab 02/20/24 [Rx] Aspirin 81 mg PO DAILY tab 02/20/24 [Rx] HYDROcodone/APAP 10-325MG [[place] 10-325] 1 each PO Q6HR PRN #12 tab 02/20/24 [Rx] Ipratropium-Albuterol Nebulize [Duoneb 0.5 mg-3 mg/3 ml Soln] 3 ml INHALATION RT-QID PRN each 02/20/24 [Rx] Melatonin 3 mg PO HS PRN tab 02/20/24 [Rx] Nicotine 14Mg/24Hr Patch [Habitrol] 1 patch TRANSDERM DAILY patch 02/20/24 [Rx] Vancomycin 1,250 mg IVPB Q12HR each 02/20/24 [Rx] polyethylene glycoL 3350 [Miralax] 17 gm PO DAILY packet 02/20/24 [Rx] Follow up Appointment(s)/Referral(s): Jorge Ypa MD [STAFF PHYSICIAN] - 03/05/24 2:00 [facility] [NON-STAFF] - 1 Week Bo Reynolds MD [STAFF PHYSICIAN] - 1 Week [facility] [Primary Care Provider] - 1-2 days Patient Instructions/Handouts: Chest Pain (ED), Costochondritis (ED) Activity/Diet/Wound Care/Special Instructions: Leave sternal wound dressing in place until wound vac can be applied on 02/21/24. Dressing is currently aquacel silver rope with wet to dry and a foam border over top. Discharge Disposition: TRANSFER TO SNF/ECF
[2024-02-20 15:24] VITALS: BP 148/80; PULSE 58; TEMP 97.3
== END 2024-02-20 16:07 | DRG 856 ==
LOC: EC 11:17 → 6NMEDSUR 12:54 → OBSVTOIN 12:55 → 6NMEDSUR 15:37 → 3SCARD 02-14 15:30 → 4SSUR 02-15 16:05
PROVIDERS: ADMIT Student in an Organized Health Care Education/Training Program; ATTEND Internal Medicine
PROC: 0PC00ZZ Extirpation of Matter from Sternum, Open Approach (ICD-10-PCS; 2024-02-14)
PROC: 0PB00ZZ Excision of Sternum, Open Approach (ICD-10-PCS; principal; 2024-02-14 09:10)
DX: T81.42XA Infection following a procedure, deep incisional surgical site, initial encounter (principal); A41.01 Sepsis due to Methicillin susceptible Staphylococcus aureus; L03.313 Cellulitis of chest wall; L02.91 Cutaneous abscess, unspecified; L98.495 Non-pressure chronic ulcer of skin of other sites with muscle involvement without evidence of necrosis; T81.44XA Sepsis following a procedure, initial encounter; I73.9 Peripheral vascular disease, unspecified; E78.5 Hyperlipidemia, unspecified; F10.20 Alcohol dependence, uncomplicated; F17.200 Nicotine dependence, unspecified, uncomplicated; F32.A Depression, unspecified; F41.9 Anxiety disorder, unspecified; I11.9 Hypertensive heart disease without heart failure; I25.2 Old myocardial infarction; I25.10 Atherosclerotic heart disease of native coronary artery without angina pectoris; Z95.5 Presence of coronary angioplasty implant and graft; M94.0 Chondrocostal junction syndrome [Tietze]; Z75.1 Person awaiting admission to adequate facility elsewhere; Z79.02 Long term (current) use of antithrombotics/antiplatelets; Z79.82 Long term (current) use of aspirin; Z79.899 Other long term (current) drug therapy; Z86.73 Personal history of transient ischemic attack (TIA), and cerebral infarction without residual deficits; Z88.2 Allergy status to sulfonamides; Z91.199 Patient's noncompliance with other medical treatment and regimen due to unspecified reason; Z95.1 Presence of aortocoronary bypass graft; H40.9 Unspecified glaucoma; I65.22 Occlusion and stenosis of left carotid artery
CPT/HCPCS: 36415; 36573; 71046; 71260; 80048; 80053; 80202; 82565; 83605; 83735; 84484; 85025; 85027; 85610; 85652; 85730; 86140; 87040; 87070; 87075; 87077; 87186; 87205; 88304; 93005; 94760; 96365; 96368; 96375; 99285